=== PATIENT | female | born 1935 | race Caucasian/White ===

== ENCOUNTER 2017-12-26 06:14 | Day surgery (SDC) | payer OTHER ==
[2017-12-26] MEDS ORDERED: OXYMETAZOLINE HCL 0.05% 30ML NAS ONE ×2 (06:34→07:11)
[2017-12-26] MEDS ORDERED: Ringers Lactate 1,000 ML IV ONE (06:34)
--- NOTE | 2017-12-26 06:58 | EKG ---
Test Date: 2017-12-25 Test Time: 16:30:18 Associate Director Of Nursing: TALON MEASUREMENT RESULTS: Intervals: Rate: 57 ME: 190 QRSD: 84 QT: 430 QTc: 418 [place]: P: 57 ME: 190 QRS: 16 T: 46 INTERPRETIVE STATEMENTS: Sinus bradycardia Low voltage QRS Borderline ECG Compared to ECG 09/02/2017 11:52:01 Low QRS voltage now present Sinus rhythm no longer present Electronically Signed On 12-26-17 06:57:28 CDT by Steven Alberts
[2017-12-26] MEDS ORDERED: PROPOFOL 200 MG/20 ML VIAL IV ONE (07:07)
[2017-12-26] MEDS ORDERED: LIDOCAINE 2% MPF 5 ML VIAL ONE (07:07)
[2017-12-26] MEDS ORDERED: ROCURONIUM 50 MG/5 ML VIAL IV ONE (07:08)
[2017-12-26] MEDS ORDERED: FENTANYL CITR 100 MCG/2 ML ONE (07:08)
[2017-12-26] MEDS ORDERED: LIDOCAINE 1% W/EPI 1:100,000 MDV 50 ML VIAL ONE (07:11)
[2017-12-26] MEDS ORDERED: GLYCOPYRROLATE 0.2 MG/ML SYR ONE ×2 (07:22→07:35)
[2017-12-26] MEDS ORDERED: NEOSTIGMINE 1 MG/ML -5 ML SYRINGE ONE (07:35)
[2017-12-26] MEDS ORDERED: DEXAMETHASONE 10 MG/ML VIAL ONE (07:35)
[2017-12-26] MEDS ORDERED: NA CHLORIDE 0.9% 500 ML ONE (07:36)
[2017-12-26] MEDS ORDERED: EPHEDRINE SULF 50 MG/5 ML SYR ONE (07:37)
[2017-12-26] MEDS ORDERED: ONDANSETRON 4 MG/2 ML VIAL ONE (07:55)
--- NOTE | 2017-12-26 08:10 | P.BOP ---
Preoperative diagnosis: CRS, nasal obstruction, mary bullosa Postoperative diagnosis: same Primary procedure: B sphenoid balloon dilation Secondary procedure: B mary resection Estimated blood loss: 10ml Specimen: L nasal culture Findings: mild-moderate crusting, inflammed mucosa Anesthesia: General Complications: None Implants: Xerogel to B MM Fluids & blood products: crystalloid 550ml Transferred to: Recovery Room Condition: Good
[2017-12-26] MEDS ORDERED: TRAMADOL HCL 50 MG TAB ONE (09:31)
[2017-12-26 09:52] VITALS: TEMP 98.5
[2017-12-26 13:02] VITALS: BP 110/84; O2SAT 93
--- NOTE | 2017-12-26 19:40 | OP ---
Surgeon: Estelle Valladares MD Preoperative Diagnoses: Nasal obstruction, chronic sphenoid sinusitis, bilateral mary bullosa. Postoperative Diagnoses: Nasal obstruction, chronic sphenoid sinusitis, bilateral mary bullosa. Procedures Performed: Nasal endoscopy with resection of bilateral mary bullosa and nasal endoscopy with balloon dilation of bilateral sphenoid sinus. Description Of Procedure: The patient was brought to the operating room. She was placed under gener al anesthesia via oral endotracheal tube. The head of the bed was turned 90 degrees and the nasal ca vity was examined with a speculum. There was minimal nasal hairs and the Afrin-soaked pledgets were placed within the nasal cavity. These were removed and a 0-degree endoscope was used to perform a na brando endoscopy. There was [id number] crusting in the nasal cavity, particularly around the midd le turbinates. A portion of this crusting was collected and sent for culture. The remaining of the crusting was carefully suctioned. There were mild mucopurulent secretions within the nasal cavity. The photo documentation of the mary bullosa was obtained. The middle turbinate was then injected w ith 1% lidocaine with epinephrine. A total of 2.5 mL was used. A sickle knife was then used to inci se along the head of the right middle turbinate into the mary bullosa. Endoscopic scissors were us ed to cut the superior and inferior aspects opening up the conchal cavity. A 45 degree Meño-Cut was t hen used to cut along the posterior attachments and the lateral portion of the mary was removed. A microdebrider was used to refine the cut edges and remove displaced mucosa with significant improvem ent in the middle meatus opening. An Afrin-soaked pledget was placed into the middle meatus and atte ntion was turned to the left side where a similar procedure was performed. After removal of the left lateral aspect of the mary, the left middle meatus was significantly more opened. An Afrin-soaked pledget was packed into the middle meatus. The Entellus sinus balloon device was then prepared for use according to manufacture's instructions. Due to planned use in the sphenoid only, the fiberoptic light cable was removed and the tip was straightened in appropriate configuration for use in the sph enoid. Under 0 degree endoscopic guidance, the tip of the instrument was guided through the nasal ca vity to the sphenoethmoidal recess. Careful palpation along the sphenoid wall allowed entrance into the sphenoid os. The balloon was advanced over the guide catheter and the balloon was inflated for a pproximately 3 seconds. After deflation the balloon was retracted and the right sphenoid sinus was f orcefully irrigated with 20 cc of saline. The device was then withdrawn and the nasal cavity was suc tioned. A similar procedure was performed on the left side after dilation of the left sphenoid. Irr igation with 40 cc of saline was performed. There was moderate mucopurulent secretions which were ev acuated during the first irrigation and the second irrigation revealed clear saline with no further p urulence. The balloon device was withdrawn and the nasal cavity was suctioned. The pledgets were re moved and photo documentation was obtained of the sphenoid dilations as well as the mary resection. Due to mild oozing in the middle meatus, a Xerogel dissolvable nasal dressing was cut and placed un tanya endoscopic guidance into the middle meatus. This dressing was soaked thoroughly with saline and the procedure was concluded. The patient was returned to care of Anesthesia for awakening and extuba tion in the operating room, which proceeded without difficulty. Complications: None. Disposition: The patient will be discharged home later today in the care of her family with instruct ions for saline irrigations. The Gram stain results will be reviewed prior to initiating antimicrobi al therapy. DESHAUN Voice ID: [id number] Report ID: [id number]
== END 2017-12-26 10:10 | disposition home or self-care (01) ==
LOC: OR 06:14
PROVIDERS: ATTEND Otolaryngology
PROC: 09QX8ZZ Repair Left Sphenoid Sinus, Via Natural or Artificial Opening Endoscopic (ICD-10-PCS; 2017-12-26)
PROC: 09QW8ZZ Repair Right Sphenoid Sinus, Via Natural or Artificial Opening Endoscopic (ICD-10-PCS; 2017-12-26)
PROC: 09TL8ZZ Resection of Nasal Turbinate, Via Natural or Artificial Opening Endoscopic (ICD-10-PCS; principal; 2017-12-26 07:30)
DX: J32.3 Chronic sphenoidal sinusitis (principal); J34.89 Other specified disorders of nose and nasal sinuses; I10 Essential (primary) hypertension; J44.9 Chronic obstructive pulmonary disease, unspecified; K21.9 Gastro-esophageal reflux disease without esophagitis; M06.9 Rheumatoid arthritis, unspecified; M79.7 Fibromyalgia; Z88.3 Allergy status to other anti-infective agents; Z82.49 Family history of ischemic heart disease and other diseases of the circulatory system
CPT/HCPCS: 31240; 31297; 87070; 87077; 87186; 93005; J1100; J2405; J2710; J3010

== ENCOUNTER 2021-12-29 20:12 | Inpatient (IN) | payer OTHER ==
--- OUTSIDE RECORDS SUMMARY | 2021-12-29 20:16 | XMS REPORT | Clinical Summary ---
:1935 Author Organization [facility] MD [facility] Address [address] [place] [address] Care Team Providers Name Role Phone MD Vincent Unavailable Chris Batres MD Primary Care Provider Allergies Active Allergy Reactions Severity Noted Date Comments Sulfamethoxazole-Trime Hives, Shortness Of High 07/30/2020 thoprim Breath Metoprolol Succinate Other (See Comments) 07/30/2020 Brachycardia, hypotension Medications Medication Sig Dispensed Refills Start End Date Status Date cholecalciferol, Take 1,000 0 Ac tive vitamin D3, 25 mcg Units by (1,000 unit) tablet mouth every morning. clonazePAM Take 1 mg by 0 Active (KlonoPIN) 1 mg mouth twice 8 tablet daily. docusate sodium Take 250 mg 0 Ac tive (COLACE) 250 mg by mouth capsule twice daily. umeclidinium-vilante Inhale 1 puff 0 Active roL (Anoro Ellipta) by mouth 0 62.5-25 every mcg/actuation dsdv evening. lidocaine-prilocaine Apply to 30 g 0 Active (EMLA) 2.5-2.5% Port-A-Cath 1 creamIndications: area 30 to 45 Encounter for minutes prior adjustment and to port management of access as vascular access directed device (topical anesthetic). ammonium lactate APPLY LOTION 0 Active (LAC-HYDRIN) 12% TOPICALLY TO 1 lotion AFFECTED AREA TWICE DAILY montelukast TAKE 1 TABLET 0 Acti ve (SINGULAIR) 10 mg BY MOUTH ONCE 1 tablet DAILY rivaroxaban Take 1 tablet 30 tablet 2 Acti ve (Xarelto) 20 mg (20 mg) by 1 tabletIndications: mouth daily. Malignant neoplasm of unspecified ovary esomeprazole Take 1 30 capsule 11 Active (NexIUM) 40 MG capsule by 1 capsuleIndications: mouth once Malignant neoplasm daily of unspecified ovary, Gastroesophageal reflux disease methocarbamol Take 0.5 60 tablet 0 Active (ROBAXIN) 500 mg tablets (250 1 tabletIndications: mg) by mouth Chronic back pain, every 8 Chronic pain (eight) hours as needed for muscle spasms (pain). pregabalin (LYRICA) TAKE 1 90 capsule 2 Active 50 mg CAPSULE BY 2 capsuleIndications: MOUTH THREE Chronic pain TIMES DAILY diclofenac sodium Apply 2 g 100 g 2 Ac tive (Voltaren) 1 % topically to 2 gelIndications: affected Chronic pain area(s) 4 (four) times a day. ondansetron (Zofran) Take 1 tablet 30 tablet 3 03/25 Discontinued 8 mg by mouth 0 21 (Therapy tabletIndications: every 8 hours completed) Malignant neoplasm on days 2, 3, of unspecified and 4 ovary, Metastatic following cancer to the chemotherapy, peritoneum then may take 1 tablet by mouth every 8 hours as needed for nausea or vomiting. prochlorperazine Take 1 tablet 30 tablet 3 03/25/20 Discontinued (Compazine) 10 mg (10 mg) by 0 21 ( Therapy tabletIndications: mouth every 6 completed) Malignant neoplasm (six) hours of unspecified as needed for ovary, Metastatic nausea or cancer to the vomiting. peritoneum pregabalin (Lyrica) Take 1 60 capsule 1 03/25/20 Discontinued 25 mg capsule (25 1 21 (Therapy capsuleIndications: mg) by mouth completed) Chronic back pain twice daily. pregabalin (LYRICA) Take 1 60 capsule 2 02/11/20 Discontinued 50 mg capsule (50 1 21 (Reorder ) capsuleIndications: mg) by mouth Chronic pain twice daily. magnesium oxide Take 1 tablet 60 tablet 0 01/22/20 Discontinued (MAOX) 400 mg by mouth 1 21 (Reord er) tabletIndications: twice daily Hypomagnesemia esomeprazole Take 1 30 capsule 0 02/16/20 Discon tinued (NexIUM) 40 MG capsule (40 1 21 capsuleIndications: mg) by mouth Gastroesophageal daily. reflux disease rivaroxaban Take 1 tablet 30 tablet 0 03/22/20 Disc ontinued (Xarelto) 20 mg (20 mg) by 1 21 (Re order) tabletIndications: mouth daily. Malignant neoplasm of unspecified ovary magnesium oxide Take 1 tablet 60 tablet 3 02/08/20 Discontinued (MAOX) 400 mg by mouth 1 21 (Reord er) tabletIndications: twice daily Hypomagnesemia magnesium oxide Take 1 tablet 60 tablet 3 04/22/20 Discontinued (MAOX) 400 mg by mouth 1 21 (Thera py tabletIndications: twice daily completed) Hypomagnesemia pregabalin (LYRICA) Take 1 60 capsule 2 04/28/20 Discontinued 50 mg capsule (50 1 21 (Reorder ) capsuleIndications: mg) by mouth Chronic pain twice daily. esomeprazole Take 1 30 capsule 0 03/20/20 Discon tinued (NexIUM) 40 MG capsule by 1 21 (Reo rder) capsuleIndications: mouth once Gastroesophageal daily reflux disease esomeprazole Take 1 30 capsule 0 04/22/20 Discon tinued (NexIUM) 40 MG capsule by 1 21 (Reo rder) capsuleIndications: mouth once Gastroesophageal daily reflux disease pregabalin (LYRICA) Take 1 90 capsule 2 05/17/20 Discontinued 50 mg capsule (50 1 21 capsuleIndications: mg) by mouth Chronic pain 3 (three) times a day. pregabalin (LYRICA) Take 1 60 capsule 0 07/29/20 Discontinued 50 mg capsule by 1 21 (Reorder) capsuleIndications: mouth twice Chronic pain daily ibuprofen Take 400 mg 0 07/29/20 Disconti nued (ADVIL,MOTRIN) 200 by mouth 21 ( Therapy mg tablet twice daily. complet ed) HYDROcodone-acetamin Take 0.5 30 tablet 0 10/28/19 Discontinued ophen (NORCO) 5 tablets by 1 22 (Th erapy mg-325 mg per mouth every 8 co mpleted) tabletIndications: (eight) hours Chronic back pain as needed for severe pain. pregabalin (LYRICA) Take 1 90 capsule 2 10/12/19 Discontinued 50 mg capsule (50 1 22 capsuleIndications: mg) by mouth Chronic pain 3 (three) times a day. ondansetron (ZOFRAN) Take 1 tablet 30 tablet 2 09/15 Discontinued 8 mg (8 mg) by 2 22 (Therapy tabletIndications: mouth every 8 completed) Malignant neoplasm (eight) hours of unspecified as needed for ovary, Metastatic nausea or cancer to the vomiting. peritoneum ciprofloxacin HCl Take 1 tablet 10 tablet 0 11/05/19 Discontinued (Cipro) 250 mg (250 mg) by 2 22 ( erapy tabletIndications: mouth twice completed) Dysuria daily. pregabalin (LYRICA) TAKE 1 90 capsule 0 10/28/19 Discontinued 50 mg CAPSULE BY 2 22 (Reorder) capsuleIndications: MOUTH THREE Chronic pain TIMES DAILY Active Problems Patient Care Coordination Note Formatting of this note might be differe nt from the original. Please allow Susanne Haynes (daughter) to accompany pt permanently for visits as pt gets mild confusion and has difficulty providing adequate history. Please schedule port access with labs pe r patient request. 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 07/30/2020 Colostomy status 07/30/2020 Frailty 07/30/2020 Chronic pain 07/30/2020 Opioid abuse continuous use 07/30/2020 H/O: pulmonary embolus 07/30/2020 [facility] current use of anticoagulant 07/30/2020 Gastroesophageal reflux disease 07/30/2020 Herpes zoster 07/30/2020 Deep venous thrombosis 07/30/2020 Cancer associated pain 07/30/2020 Coronary atherosclerosis of [place] coronary artery 05/2020 Essential hypertension 07/29/2020 Mixed hyperlipidemia 07/29/2020 Obstructive sleep apnea syndrome 07/29/2020 Rheumatoid arthritis 07/29/2020 Fibromyalgia 12/23/2018 Parastomal hernia without obstruction or gangrene 11/2018 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 Cancer Staging: Clinical stage from 04/03: Stage IIIC (Primary) - Signed by Almita Batres MD on 07/31/2020 Clinical stage from 03/19/2019: Stage III C (Recurrent) - Signed by Almita Batres MD on 07/31/2020 Atrial fibrillation 02/28/2018 Chronic obstructive pulmonary disease 02/28/2018 Diverticulitis of colon 02/28/2018 Encounters Date Type Specialty Care Team Description 11/22/2021 Orders Only Gynecology Keny, Neoplasm, malig nant 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> (Primary Dx); ASIM Romero Metastatic canc er to the peritoneum 11/22/2021 Orders Only Gynecology Adriane Paul, Malignant neopl asm of unspecified ovary (Primary Dx); PA Metastatic canc er to the peritoneum; Encounter for e xamination prior to antineoplastic chemotherapy; Neoplasm, malig nant 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> 11/04/2021 Infusion Infusion Services Keny, 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 (Primary Dx); ASIM Romero Neoplasm, malig nant 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> 11/04/2021 Office Visit Gynecology Gisel Neoplasm, malig nant 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> (Primary Dx); Almita Perez MD Malignant neoplasm of unspecified ovary; Keny, Metastatic canc er to the peritoneum; ASIM Romero Encounter for e xamination prior to antineoplastic chemotherapy 11/04/2021 Clinical Support Infusion Services Gisel, Malign ant neoplasm of Almita Perez MD unspecified ov danielle 11/04/2021 Travel 11/03/2021 Orders Only Gynecology Francisco Batres, malig nant 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> (Primary Dx); Almita Perez MD Metastatic can cer to the peritoneum 10/27/2021 Office Visit Pain Medicine Jacek Kimball Chronic pain (Primary Dx); MD Aisha Chronic back pa in 10/27/2021 Travel 10/14/2021 Infusion Infusion Services Keny, 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 (Primary Dx); ASIM Romero Neoplasm, malig nant 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> 10/14/2021 Office Visit Gynecology Gisel, Neoplasm, malig nant 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> (Primary Dx); Almita Perez MD Malignant neoplasm of unspecified ovary; Keny, Metastatic canc er to the peritoneum; ASIM Romero Encounter for e xamination prior to antineoplastic chemotherapy 10/14/2021 Clinical Support Infusion Services Almita Batres MD 10/14/2021 Orders Only Gynecology Francisco Batres, malleonie painter of Almita Perez MD ovary <Bilater al> (Primary Dx) 10/14/2021 Travel 10/11/2021 Telemedicine Hematology Kelsey Meyer Long-term use of anticoagulants (Primary Dx); MD Garrett H/O: atrial fibrillation; Holt 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> Michael Rao MD 10/11/2021 Refill Pain Medicine Jacek Kimball Chronic pain MD Aisha 10/09/2021 Hospital Encounter Vascular Access China Batres for and Procedures Almita Perez MD adjustment and Coyle, management of v ascestelle Painter I automated access systems technician device ( Primary Dx) 10/09/2021 Travel 10/06/2021 Orders Only Gynecology Francisco Batres, malig nant 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> (Primary Dx); Almita Perez MD Metastatic can cer to the peritoneum 10/06/2021 Orders Only Gynecology Keny, Neoplasm, malig nant of ASIM Romero ovary <Bilatera l> (Primary Dx) 10/05/2021 Orders Only Gynecology Keny, Neoplasm, malig nant of Nick, PA ovary <Bilatera l> (Primary Dx) 10/05/2021 Orders Only Gynecology Keny, Thrombosis of i nternal ASIM Romero jugular vein <R ight side> (Primary Dx) 10/04/2021 Hospital Encounter Radiology Keny, Malignant neoplasm of unspecified ovary; ASIM Romero Metastatic canc er to the peritoneum; Encounter for e xamination prior to antineoplastic chemotherapy; Neoplasm, malig nant 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> 10/04/2021 Hospital Encounter Lab Keny, Yonasati c cancer to the peritoneum; ASIM Romero Neoplasm, malig nant 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> 10/04/2021 Travel 09/14/2021 Infusion Infusion Services Keny, 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 (Primary Dx); ASIM Romero Neoplasm, malig nant 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> 09/14/2021 Office Visit Gynecology Gisel Neoplasm, malig nant 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> (Primary Dx); Almita Perez MD Malignant neop lasm of unspecified ovary; Metastatic canc er to the peritoneum; Encounter for e xamination prior to antineoplastic chemotherapy; Dysuria 09/14/2021 Clinical Support Infusion Services Almita Batres MD 09/14/2021 Travel 09/13/2021 Orders Only Gynecology Francisco Batres malig nant of Nicole D., MD ovary <Bilater al> (Primary Dx) 08/29/2021 Orders Only Gynecology Adriane Paul, Malignant neopl asm of unspecified ovary (Primary Dx); ASIM Metastatic canc er to the peritoneum 08/29/2021 Telephone Gynecology [facility], November Medication Ref ill L, RN 08/24/2021 Infusion Infusion Services 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 (Primary Dx); Neoplasm, malig nant 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> 08/24/2021 Office Visit Gynecology Francisco Batres, malig nant 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> (Primary Dx); Almita Perez MD Malignant neop lasm of unspecified ovary; Metastatic canc er to the peritoneum; Encounter for e xamination prior to antineoplastic chemotherapy 08/24/2021 Clinical Support Infusion Services Almita Batres MD 08/24/2021 Travel 08/23/2021 Orders Only Gynecology Francisco Batres malig nant of Nicole D., MD ovary <Bilater al> (Primary Dx) 08/15/2021 Ancillary Procedure Radiology Gisel Malignan t neoplasm of unspecified ovary; Almita Perez MD Mass of muscle of left upper limb 08/15/2021 Travel 08/03/2021 Hospital Encounter Pain Medicine Jacek Kimball MD 08/03/2021 Hospital Encounter Pain Medicine Jacek Kimball c back pain MD Aisha 08/03/2021 Travel 08/03/2021 Orders Only Pain Medicine Jozef Mendez MD 07/29/2021 Infusion Infusion Services Malignant neoplasm of unspecified ovary (Primary Dx); Metastatic canc er to the peritoneum 07/29/2021 Office Visit Pain Medicine Jacek Kimball Chronic back pain (Primary Dx); MD Aisha Chronic pain 07/29/2021 Office Visit Gynecology Gisel, Malignant neopl asm of unspecified ovary (Primary Dx); Almita Perez MD Encounter for examination prior to antineoplastic chemotherapy; Metastatic canc er to the peritoneum; Abnormal urinal ysis; Mass of muscle of left upper limb; Neoplasm, malig nant 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> 07/29/2021 Clinical Support Infusion Services Almita Batres MD 07/29/2021 Orders Only Gynecology Keny, Malignant neopl asm of Nick, PA unspecified ova ry (Primary Dx) 07/29/2021 Travel 07/28/2021 Orders Only Gynecology Gisel, Malignant neopl asm of Almita Perez MD unspecified ov danielle (Primary Dx) 07/27/2021 Ancillary Procedure Radiology Keny, Malignan t neoplasm of unspecified ovary; Nick PA Metastatic canc er to the peritoneum 07/27/2021 Travel 07/08/2021 Clinical Support Infusion Services Almita Batres MD 07/08/2021 Infusion Infusion Services Gisel Malignant neoplasm of unspecified ovary (Primary Dx); Almita Perez MD Metastatic can cer to the peritoneum 07/08/2021 Office Visit Gynecology Gisel Malignant neopl asm of unspecified ovary (Primary Dx); Almita Perez MD Metastatic can cer to the peritoneum 07/08/2021 Travel 07/07/2021 Orders Only Gynecology Gisel Malignant neopl asm of unspecified ovary (Primary Dx); Almita Perez MD Metastatic can cer to the peritoneum 07/01/2021 Refill Gynecology Keny Malignant neopl asm of Nick, PA unspecified ova ry 06/17/2021 Infusion Infusion Services Malignant neoplasm of unspecified ovary (Primary Dx); Metastatic canc er to the peritoneum 06/17/2021 Office Visit Gynecology Keny Malignant neopl asm of unspecified ovary (Primary Dx); Nick, PA Metastatic canc er to the peritoneum; Dysuria 06/17/2021 Clinical Support Infusion Services 06/17/2021 Orders Only Gynecology Gisel, Malignant neopl asm of Almita Perez MD unspecified ov danielle (Primary Dx) 06/17/2021 Travel 05/17/2021 Refill Pain Medicine Jacek Kimball Chronic pain MD Aisha 05/13/2021 Office Visit Gynecology Gisel, Malignant neopl asm of unspecified ovary (Primary Dx); Almita Perez MD Metastatic can cer to the peritoneum; Encounter for e xamination prior to antineoplastic chemotherapy; Leukocytes in u rine; Dental caries, not otherwise specified 05/13/2021 Clinical Support Infusion Services Nick Bustillo PA 05/13/2021 Orders Only Gynecology Keny Malignant neopl asm of unspecified ovary (Primary Dx); ASIM Romero Metastatic canc er to the peritoneum 05/13/2021 Travel 05/12/2021 Orders Only Gynecology Gisel, Malignant neopl asm of unspecified ovary (Primary Dx); Almita Perez MD Metastatic can cer to the peritoneum; Neoplasm, malig nant 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> 05/07/2021 Ancillary Procedure Radiology Jacek Kimball Chroni c back pain; MD Aisha Chronic pain; Radiculopathy o f lumbar region 05/07/2021 Travel 04/28/2021 Office Visit Pain Medicine Jacek Kimball Radiculopath y of lumbar region (Primary Dx); MD Aisha Chronic back pa in; Chronic pain 04/28/2021 Travel 04/22/2021 Infusion Infusion Services Keny Malignant neoplasm of unspecified ovary (Primary Dx); ASIM Romero Metastatic canc er to the peritoneum 04/22/2021 Office Visit Gynecology Gisel, Malignant neopl asm of unspecified ovary (Primary Dx); Almita Perez MD Metastatic can cer to the peritoneum; Encounter for e xamination prior to antineoplastic chemotherapy; Gastroesophagea l reflux disease 04/22/2021 Clinical Support Infusion Services Almita Batres MD 04/22/2021 Travel 04/20/2021 Ancillary Procedure Radiology Katelin Bustillo t neoplasm of unspecified ovary; ASIM Romero Metastatic canc er to the peritoneum 04/20/2021 Travel 03/25/2021 Infusion Infusion Services Keny Malignant neoplasm of unspecified ovary (Primary Dx); ASIM Romero Metastatic canc er to the peritoneum 03/25/2021 Office Visit Gynecology Keny, Malignant neopl asm of unspecified ovary (Primary Dx); ASIM Romero Metastatic canc er to the peritoneum 03/25/2021 Orders Only Gynecology Cole Mcknight MD 03/25/2021 Travel 03/22/2021 Orders Only Gynecology Keny, Malignant neopl asm of ASIM Romero unspecified ova ry 03/21/2021 Orders Only Gynecology Gisel, Malignant neopl asm of Almita Perez MD unspecified ov danielle (Primary Dx) 03/20/2021 Orders Only Gynecology Adriane Paul, Gastroesophagea l reflux PA disease 03/17/2021 Orders Only Gynecology Adriane Paul PA 03/04/2021 Infusion Infusion Services Adriane Paul, Malignant neoplasm of unspecified ovary (Primary Dx); PA Metastatic canc er to the peritoneum 03/04/2021 Office Visit Gynecology Gisel, Malignant neopl asm of unspecified ovary (Primary Dx); Almita Perez MD Metastatic can cer to the peritoneum 03/04/2021 Clinical Support Infusion Services Bryan, Malign ant neoplasm of Saneese K, PA unspecified ov danielle 03/04/2021 Travel 02/25/2021 Infusion Infusion Services Adriane Paul, Malignant neoplasm of unspecified ovary; PA Metastatic canc er to the peritoneum 02/25/2021 Clinical Support Infusion Services Bryan, Malign ant neoplasm of Saneese K, PA unspecified ov danielle 02/25/2021 Orders Only Gynecology Keny, Malignant neopl asm of unspecified ovary (Primary Dx); ASIM Romero Metastatic canc er to the peritoneum 02/25/2021 Orders Only Gynecology Keny, Dysuria (Primar y Dx) ASIM Romero 02/25/2021 Travel 02/18/2021 Office Visit Gynecology Keny, Malignant neopl asm of unspecified ovary (Primary Dx); ASIM Romero Metastatic canc er to the peritoneum; Thrombocytopeni a, not otherwise specified 02/18/2021 Clinical Support Infusion Services Almita Batres MD 02/18/2021 Travel 02/15/2021 Refill Gynecology Bryan, Gastroesophagea l reflux Saneese K, PA disease 02/10/2021 Refill Pain Medicine Harrison, Chronic pain Abdullahi D, RN 02/07/2021 Refill Gynecology november Hypomagneseian L, RN 02/02/2021 Documentation Pain Medicine Dmitry Carcamo MD 01/28/2021 Hospital Encounter Pain Medicine Jacek Kimball MD 01/28/2021 Hospital Encounter Pain Medicine Jacek Kimball MD 01/28/2021 Hospital Encounter Pain Medicine Delmi Sanchez MD 01/28/2021 Hospital Encounter Pain Medicine Jacek Kimball Chronemmanuel c back pain (Primary Dx); MD Aisha Lumbar facet emmett int pain; Pain in right s houlder; Rotator cuff ar thropathy of right shoulder 01/28/2021 Travel 01/27/2021 Orders Only Pain Medicine Dmitry Carcamo MD 01/27/2021 Telephone Pain Medicine Meche Crystal RN 01/25/2021 Telephone Pain Medicine Meche Crystal RN 01/24/2021 Office Visit Pain Medicine Jacek Kimball Chronic back pain MD Aisha (Primary Dx) 01/24/2021 Travel 01/21/2021 Infusion Infusion Services Gisel, Malignant neoplasm of unspecified ovary (Primary Dx); Almita Perez MD Metastatic can cer to the peritoneum 01/21/2021 Office Visit Gynecology Batres, Malignant neopl asm of unspecified ovary (Primary Dx); Almita Perez MD Metastatic can cer to the peritoneum; Encounter for e xamination prior to antineoplastic chemotherapy; Hypomagnesemia; Thrombocytopeni a, not otherwise specified; 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 01/21/2021 Travel 01/19/2021 Hospital Encounter Lab Gisel, Malignant neoplasm of unspecified ovary; Almita Perez MD Metastatic can cer to the peritoneum 01/19/2021 Ancillary Procedure Radiology Bryan, Malignan t neoplasm of Miguel Vieyra PA unspecified ov danielle 01/19/2021 Travel 01/03/2021 Refill Surgical Oncology Boaz Soto PA after 12/29/2020 Immunizations Name Administration Dates Next Due Pfizer SARS-CoV-2 Vaccination 04/18/2021 Surgical History Surgery Date Site/Laterality Comments COLON SURGERY 02/17/2018 - colostomy 03/19/2018 BACK SURGERY 08/20/2014 - 08/19/2015 HYSTERECTOMY 08/20/1979 - 08/19/1980 CATARACT EXTRACTION, BILATERAL CA INSJ TUNNELED CTR VAD 09/30/2020 Neck/Right Procedu re: PORT-A-CATH W/SUBQ PORT AGE 5 YR/> PLACEMENT ; Surgeon: Conner Hogan MD; L ocation: [facility]; Servic e: SURG ONC - PORT Medical devices from this surgery are in t he Implants section . CA CHG US GUIDE, VASCULAR 09/30/2020 Neck/Right Proced ure: US GUIDANCE ACCESS WITH EVAL OF POT ENTIAL ACCESS SITES, RE ALTIME US VISUALIZATION OF VASC NEEDLE ENTRY; S urgeon: Conner Hogan MD; Location: [facility]; Service: SURG ON C - PORT Medical devices from this surgery are in t he Implants section . CA CHG FLUOROGUIDE CNTRL 09/30/2020 Neck/Right Procedu re: FLUORO GUIDANCE VIDA FOR CENTRAL VENO US ACCESS ACCESS,PLACE,REPLACE,REMOV DEVIC E PLACEMENT, E REPLACEMENT, OR REMOVAL; Surgeon: Conner Hogan MD; Location: [facility]; Service: SURG ON C - PORT Medical devices from this surgery are in t he Implants section . Medical History Medical History Date Comments Hypertension no medication for ap proximately 1 year. 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 airway pressure ventilation Gastric reflux 1995 esomeprazole Gastric ulcer 1995 Osteoporosis 2012 Arthritis 1970 Anxiety 2012 clonazepam Herpes zoster 04/2020 Ovarian cancer 02/2018 Family History Medical History Relation Name Comments Breast cancer Mother Damaris Arias Relation Name Status Comments Mother Damaris Arias Social History Tobacco Use Types Packs/Day Years Used Date Never Smoker 0 0 Smokeless Tobacco: Never Used Alcohol Use Standard Drinks/Week Comments Not Currently 0 (1 standard drink = 0.6 oz pure alcoho l) Sex Assigned at Date Recorded Female 07/28/2020 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 Start Date Occupation Industry Not on file Not on file Not on file Obstetrics History Para Term AB IAB SAB Ectopic Multiple Living Live Births 2 2 2 Date Outcome GA Total Labor/2nd/3rd Weight Sex Delivery Anes PTL [place] A 1 A5 Name Clin Labor Para Para Last Filed Vital Signs Vital Sign Reading Time Taken Comments Blood Pressure 123/75 11/04/2021 10:37 AM CDT Pulse 71 11/04/2021 10:37 AM CDT Temperature 36.4 C (97.6 F) 11/04/2021 10:37 AM CDT Respiratory Rate 18 11/04/2021 10:37 AM CDT Oxygen Saturation 97% 10/09/2021 11:29 AM 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 Inhaled Oxygen Concentration - - Weight 53.3 kg (117 lb 8.1 oz) 11/04/2021 8:29 AM CDT Height - - Body Mass Index 23.07 08/06/2020 9:06 AM 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 Plan of Treatment Date Type Specialty Care Team Description 01/17/2022 Appointment Radiology Adriane Paul PA [facility] [place], [place] [address] (Wo rk) 01/18/2022 Lab Lab Nick Bustillo PA [address] [place] [address] [phone] (Wo rk) 01/18/2022 Clinical Support Infusion Services Alfredito Batres MD [address] [place] [address] [phone] (Wo rk) 01/18/2022 Office Visit Gynecology Almita Batres MD [address] [place] [address] [phone] (Wo rk) 01/18/2022 Infusion Infusion Services Nick Bustillo PA [address] [place] [phone] (Wo rk) 01/27/2022 Office Visit Pain Medicine Jacek Kimball MD [address] [place] [phone] (Wo rk) Health Maintenance Due Date Last Done Comments COVID-19 Vaccination (2 - Pfizer risk 4-dose series) 05/09/2021 04/18/2021 Implants Implanted Type Area Machine Grainer Device Identifier Shelf Model / Expiration Serial / Date Lot [employer]wr[employer] Gely Slim 6fr W/Smth Septum - Sna Port Right: BARD PERIPHERAL [id number] 10/17/2021 [id number] / Implanted: Qty: 1 on 09/30/2020 by Conner Hogan MD at [facility] [facility] Internal VASCULAR NA / Jugular [id number] Description: Catheter length-21 CM Procedures Procedure Name Priority Date/Time Associated Diagnosis Comme nts URINALYSIS MICROSCOPIC Routine 11/04/2021 8:45 R esults for this AM CDT procedure are i n the results section. 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 .GLOMERULAR FILTRATION Routine 11/04/2021 8:45 Metastatic can cer to Results for this RATE AM CDT the peritoneum procedure are in Neoplasm, malignant the resu lts 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> section . SERUM CREATININE Routine 11/04/2021 8:45 Metastatic cancer to Results for this AM CDT the peritoneum procedure are in Neoplasm, malignant the resu lts 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> section . ELECTROLYTE PANEL Routine 11/04/2021 8:45 Metastatic cancer t o Results for this AM CDT the peritoneum procedure are in Neoplasm, malignant the resu lts 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> section . BLOOD UREA NITROGEN Routine 11/04/2021 8:45 Metastatic cancer to Results for this AM CDT the peritoneum procedure are in Neoplasm, malignant the resu lts 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> section . GLUCOSE LEVEL Routine 11/04/2021 8:45 Metastatic cancer to Re sults for this AM CDT the peritoneum procedure are in Neoplasm, malignant the resu lts 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> section . MANUAL DIFFERENTIAL Routine 11/04/2021 8:45 Metastatic cancer to Results for this AM CDT the peritoneum procedure are in Neoplasm, malignant the resu lts 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> section . Results CBC Routine 11/04/2021 8:45 Metastatic cancer to Res ults for this AM CDT the peritoneum procedure are in Neoplasm, malignant the resu lts 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> section . URINALYSIS WITH Routine 11/04/2021 8:45 Metastatic cancer to Results for this MICROSCOPIC IF AM CDT the peritoneum procedure are in INDICATED Neoplasm, malignant the resu lts 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> section . MAGNESIUM LEVEL Routine 11/04/2021 8:45 Metastatic cancer to Results for this AM CDT the peritoneum procedure are in Neoplasm, malignant the resu lts 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> section . ASPARTATE Routine 11/04/2021 8:45 Metastatic cancer to Res ults for this AMINOTRANSFERASE AM CDT the peritoneum procedure are in Neoplasm, malignant the resu lts 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> section . ALANINE Routine 11/04/2021 8:45 Metastatic cancer to Res ults for this AMINOTRANSFERASE AM CDT the peritoneum procedure are in Neoplasm, malignant the resu lts 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> section . BILIRUBIN TOTAL Routine 11/04/2021 8:45 Metastatic cancer to Results for this AM CDT the peritoneum procedure are in Neoplasm, malignant the resu lts 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> section . BASIC METABOLIC PANEL, Routine 11/04/2021 8:45 Metastatic can cer to CALCIUM TOTAL AM CDT the peritoneum 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> COMPLETE BLOOD COUNT W/ Routine 11/04/2021 8:45 Metastatic ca ncer to DIFFERENTIAL AM CDT the peritoneum 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> CANCER ANTIGEN 125 Routine 11/04/2021 8:45 Metastatic cancer to Results for this AM CDT the peritoneum procedure are in Neoplasm, malignant the resu lts 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> section . CALCIUM LEVEL TOTAL Routine 10/14/2021 1:43 Metastatic cancer to Results for this PM 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 the peritoneum procedure are in Neoplasm, malignant the resu lts 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> section . .GLOMERULAR FILTRATION Routine 10/14/2021 1:43 Metastatic can cer to Results for this RATE PM 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 the peritoneum procedure are in Neoplasm, malignant the resu lts 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> section . SERUM CREATININE Routine 10/14/2021 1:43 Metastatic cancer to Results for this PM 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 the peritoneum procedure are in Neoplasm, malignant the resu lts 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> section . ELECTROLYTE PANEL Routine 10/14/2021 1:43 Metastatic cancer t o Results for this PM 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 the peritoneum procedure are in Neoplasm, malignant the resu lts 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> section . BLOOD UREA NITROGEN Routine 10/14/2021 1:43 Metastatic cancer to Results for this PM 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 the peritoneum procedure are in Neoplasm, malignant the resu lts 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> section . GLUCOSE LEVEL Routine 10/14/2021 1:43 Metastatic cancer to Re sults for this PM 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 the peritoneum procedure are in Neoplasm, malignant the resu lts 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> section . MANUAL DIFFERENTIAL Routine 10/14/2021 1:43 Metastatic cancer to Results for this PM 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 the peritoneum procedure are in Neoplasm, malignant the resu lts 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> section . Results CBC Routine 10/14/2021 1:43 Metastatic cancer to Res ults for this PM 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 the peritoneum procedure are in Neoplasm, malignant the resu lts 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> section . MAGNESIUM LEVEL Routine 10/14/2021 1:43 Metastatic cancer to Results for this PM 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 the peritoneum procedure are in Neoplasm, malignant the resu lts 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> section . ASPARTATE Routine 10/14/2021 1:43 Metastatic cancer to Res ults for this AMINOTRANSFERASE PM 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 the peritoneum procedure are in Neoplasm, malignant the resu lts 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> section . ALANINE Routine 10/14/2021 1:43 Metastatic cancer to Res ults for this AMINOTRANSFERASE PM 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 the peritoneum procedure are in Neoplasm, malignant the resu lts 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> section . BILIRUBIN TOTAL Routine 10/14/2021 1:43 Metastatic cancer to Results for this PM 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 the peritoneum procedure are in Neoplasm, malignant the resu lts 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> section . 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 CT CHEST ABDOMEN PELVIS Routine 10/04/2021 1:16 Malignant thierno plasm of Results for this W CONTRAST PM 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 unspecified ovar y procedure are in Metastatic cancer to the res ults the peritoneum section. 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 .GLOMERULAR FILTRATION Routine 10/04/2021 10:01 Metastatic can cer to Results for this RATE AM 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 the peritoneum procedure are in Neoplasm, malignant the resu lts 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> section . SERUM CREATININE Routine 10/04/2021 10:01 Metastatic cancer to Results for this AM 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 the peritoneum procedure are in Neoplasm, malignant the resu lts 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> section . ELECTROLYTE PANEL Routine 10/04/2021 10:01 Metastatic cancer t o Results for this AM 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 the peritoneum procedure are in Neoplasm, malignant the resu lts 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> section . BLOOD UREA NITROGEN Routine 10/04/2021 10:01 Metastatic cancer to Results for this AM 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 the peritoneum procedure are in Neoplasm, malignant the resu lts 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> section . GLUCOSE LEVEL Routine 10/04/2021 10:01 Metastatic cancer to Re sults for this AM 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 the peritoneum procedure are in Neoplasm, malignant the resu lts 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> section . MANUAL DIFFERENTIAL Routine 10/04/2021 10:01 Metastatic cancer to Results for this AM 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 the peritoneum procedure are in Neoplasm, malignant the resu lts 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> section . Results CBC Routine 10/04/2021 10:01 Metastatic cancer to Res ults for this AM 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 the peritoneum procedure are in Neoplasm, malignant the resu lts 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> section . MAGNESIUM LEVEL Routine 10/04/2021 10:01 Metastatic cancer to Results for this AM 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 the peritoneum procedure are in Neoplasm, malignant the resu lts 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> section . ASPARTATE Routine 10/04/2021 10:01 Metastatic cancer to Res ults for this AMINOTRANSFERASE AM 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 the peritoneum procedure are in Neoplasm, malignant the resu lts 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> section . ALANINE Routine 10/04/2021 10:01 Metastatic cancer to Res ults for this AMINOTRANSFERASE AM 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 the peritoneum procedure are in Neoplasm, malignant the resu lts 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> section . BILIRUBIN TOTAL Routine 10/04/2021 10:01 Metastatic cancer to Results for this AM 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 the peritoneum procedure are in Neoplasm, malignant the resu lts 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> section . BASIC METABOLIC PANEL, Routine 10/04/2021 10:01 Metastatic can cer to CALCIUM TOTAL AM 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 the peritoneum 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> COMPLETE BLOOD COUNT W/ Routine 10/04/2021 10:01 Metastatic ca ncer to DIFFERENTIAL AM 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 the peritoneum 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> CANCER ANTIGEN 125 Routine 10/04/2021 10:01 Metastatic cancer to Results for this AM 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 the peritoneum procedure are in Neoplasm, malignant the resu lts 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> section . URINALYSIS MICROSCOPIC Routine 09/14/2021 1:53 R esults for this PM 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 procedure are i n the results section. URINALYSIS WITH Routine 09/14/2021 1:53 Metastatic cancer to Results for this MICROSCOPIC IF PM 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 the peritoneum procedure are in INDICATED Neoplasm, malignant the resu lts 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> section . CALCIUM LEVEL TOTAL Routine 09/14/2021 1:50 Metastatic cancer to Results for this PM 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 the peritoneum procedure are in Neoplasm, malignant the resu lts 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> section . .GLOMERULAR FILTRATION Routine 09/14/2021 1:50 Metastatic can cer to Results for this RATE PM 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 the peritoneum procedure are in Neoplasm, malignant the resu lts 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> section . SERUM CREATININE Routine 09/14/2021 1:50 Metastatic cancer to Results for this PM 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 the peritoneum procedure are in Neoplasm, malignant the resu lts 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> section . ELECTROLYTE PANEL Routine 09/14/2021 1:50 Metastatic cancer t o Results for this PM 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 the peritoneum procedure are in Neoplasm, malignant the resu lts 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> section . BLOOD UREA NITROGEN Routine 09/14/2021 1:50 Metastatic cancer to Results for this PM 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 the peritoneum procedure are in Neoplasm, malignant the resu lts 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> section . GLUCOSE LEVEL Routine 09/14/2021 1:50 Metastatic cancer to Re sults for this PM 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 the peritoneum procedure are in Neoplasm, malignant the resu lts 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> section . MANUAL DIFFERENTIAL Routine 09/14/2021 1:50 Metastatic cancer to Results for this PM 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 the peritoneum procedure are in Neoplasm, malignant the resu lts 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> section . Results CBC Routine 09/14/2021 1:50 Metastatic cancer to Res ults for this PM 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 the peritoneum procedure are in Neoplasm, malignant the resu lts 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> section . MAGNESIUM LEVEL Routine 09/14/2021 1:50 Metastatic cancer to Results for this PM 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 the peritoneum procedure are in Neoplasm, malignant the resu lts 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> section . ASPARTATE Routine 09/14/2021 1:50 Metastatic cancer to Res ults for this AMINOTRANSFERASE PM 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 the peritoneum procedure are in Neoplasm, malignant the resu lts 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> section . ALANINE Routine 09/14/2021 1:50 Metastatic cancer to Res ults for this AMINOTRANSFERASE PM 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 the peritoneum procedure are in Neoplasm, malignant the resu lts 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> section . BILIRUBIN TOTAL Routine 09/14/2021 1:50 Metastatic cancer to Results for this PM 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 the peritoneum procedure are in Neoplasm, malignant the resu lts 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> section . BASIC METABOLIC PANEL, Routine 09/14/2021 1:50 Metastatic can cer to CALCIUM TOTAL PM 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 the peritoneum 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> COMPLETE BLOOD COUNT W/ Routine 09/14/2021 1:50 Metastatic ca ncer to DIFFERENTIAL PM 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 the peritoneum 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> CANCER ANTIGEN 125 Routine 09/14/2021 1:50 Metastatic cancer to Results for this PM 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 the peritoneum procedure are in Neoplasm, malignant the resu lts 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> section . URINE CULTURE Routine 09/14/2021 1:53 Dysuria Results fo r this AM 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 procedure are i n the results section. CALCIUM LEVEL TOTAL Routine 08/24/2021 9:43 Metastatic cancer to Results for this AM 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 the peritoneum procedure are in Neoplasm, malignant the resu lts 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> section . .GLOMERULAR FILTRATION Routine 08/24/2021 9:43 Metastatic can cer to Results for this RATE AM 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 the peritoneum procedure are in Neoplasm, malignant the resu lts 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> section . SERUM CREATININE Routine 08/24/2021 9:43 Metastatic cancer to Results for this AM 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 the peritoneum procedure are in Neoplasm, malignant the resu lts 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> section . ELECTROLYTE PANEL Routine 08/24/2021 9:43 Metastatic cancer t o Results for this AM 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 the peritoneum procedure are in Neoplasm, malignant the resu lts 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> section . BLOOD UREA NITROGEN Routine 08/24/2021 9:43 Metastatic cancer to Results for this AM 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 the peritoneum procedure are in Neoplasm, malignant the resu lts 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> section . GLUCOSE LEVEL Routine 08/24/2021 9:43 Metastatic cancer to Re sults for this AM 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 the peritoneum procedure are in Neoplasm, malignant the resu lts 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> section . MANUAL DIFFERENTIAL Routine 08/24/2021 9:43 Metastatic cancer to Results for this AM 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 the peritoneum procedure are in Neoplasm, malignant the resu lts 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> section . Results CBC Routine 08/24/2021 9:43 Metastatic cancer to Res ults for this AM 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 the peritoneum procedure are in Neoplasm, malignant the resu lts 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> section . MAGNESIUM LEVEL Routine 08/24/2021 9:43 Metastatic cancer to Results for this AM 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 the peritoneum procedure are in Neoplasm, malignant the resu lts 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> section . ASPARTATE Routine 08/24/2021 9:43 Metastatic cancer to Res ults for this AMINOTRANSFERASE AM 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 the peritoneum procedure are in Neoplasm, malignant the resu lts 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> section . ALANINE Routine 08/24/2021 9:43 Metastatic cancer to Res ults for this AMINOTRANSFERASE AM 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 the peritoneum procedure are in Neoplasm, malignant the resu lts 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> section . BILIRUBIN TOTAL Routine 08/24/2021 9:43 Metastatic cancer to Results for this AM 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 the peritoneum procedure are in Neoplasm, malignant the resu lts 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> section . 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 URINALYSIS MICROSCOPIC Routine 08/24/2021 9:00 R esults for this AM 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 procedure are i n the results section. URINALYSIS WITH Routine 08/24/2021 9:00 Metastatic cancer to Results for this MICROSCOPIC IF AM 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 the peritoneum procedure are in INDICATED Neoplasm, malignant the resu lts 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> section . US UPPER EXTREMITY Routine 08/15/2021 1:55 Malignant neoplasm of Results for this LIMITED LEFT PM 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 unspecified ovar y procedure are in Mass of muscle of the result s left upper limb section. PAIN MANAGEMENT Routine 08/03/2021 2:08 Results for this FLUOROSCOPY PM 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 procedure are i n the results section. URINALYSIS MICROSCOPIC Routine 07/29/2021 2:28 R esults for this PM 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 procedure are i n the results section. URINALYSIS WITH Routine 07/29/2021 2:28 Abnormal urinalysis R esults for this MICROSCOPIC IF PM 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 procedure are in INDICATED the results section. URINE CULTURE Routine 07/29/2021 2:28 Abnormal urinalysis Res ults for this PM 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 procedure are i n the results section. URINALYSIS MICROSCOPIC Routine 07/29/2021 9:58 R esults for this AM 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 procedure are i n the results section. CALCIUM LEVEL TOTAL Routine 07/29/2021 9:58 Malignant neoplas m of Results for this AM 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 unspecified ovar y procedure are in Metastatic cancer to the res ults the peritoneum section. .GLOMERULAR FILTRATION Routine 07/29/2021 9:58 Malignant neop lasm of Results for this RATE AM 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 unspecified ovar y procedure are in Metastatic cancer to the res ults the peritoneum section. SERUM CREATININE Routine 07/29/2021 9:58 Malignant neoplasm o f Results for this AM 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 unspecified ovar y procedure are in Metastatic cancer to the res ults the peritoneum section. ELECTROLYTE PANEL Routine 07/29/2021 9:58 Malignant neoplasm of Results for this AM 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 unspecified ovar y procedure are in Metastatic cancer to the res ults the peritoneum section. BLOOD UREA NITROGEN Routine 07/29/2021 9:58 Malignant neoplas m of Results for this AM 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 unspecified ovar y procedure are in Metastatic cancer to the res ults the peritoneum section. GLUCOSE LEVEL Routine 07/29/2021 9:58 Malignant neoplasm of R esults for this AM 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 unspecified ovar y procedure are in Metastatic cancer to the res ults the peritoneum section. MANUAL DIFFERENTIAL Routine 07/29/2021 9:58 Malignant neoplas m of Results for this AM 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 unspecified ovar y procedure are in Metastatic cancer to the res ults the peritoneum section. Results CBC Routine 07/29/2021 9:58 Malignant neoplasm of Re sults for this AM 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 unspecified ovar y procedure are in Metastatic cancer to the res ults the peritoneum section. URINALYSIS WITH Routine 07/29/2021 9:58 Malignant neoplasm of Results for this MICROSCOPIC IF AM 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 unspecified ovar y procedure are in INDICATED Metastatic cancer to the res ults the peritoneum section. MAGNESIUM LEVEL Routine 07/29/2021 9:58 Malignant neoplasm of Results for this AM 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 unspecified ovar y procedure are in Metastatic cancer to the res ults the peritoneum section. ASPARTATE Routine 07/29/2021 9:58 Malignant neoplasm of Re sults for this AMINOTRANSFERASE AM 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 unspecified ova ry procedure are in Metastatic cancer to the res ults the peritoneum section. ALANINE Routine 07/29/2021 9:58 Malignant neoplasm of Re sults for this AMINOTRANSFERASE AM 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 unspecified ova ry procedure are in Metastatic cancer to the res ults the peritoneum section. BILIRUBIN TOTAL Routine 07/29/2021 9:58 Malignant neoplasm of Results for this AM 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 unspecified ovar y procedure are in Metastatic cancer to the res ults the peritoneum section. BASIC METABOLIC PANEL, Routine 07/29/2021 9:58 Malignant neop lasm of CALCIUM TOTAL AM 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 unspecified ovar y 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 COMPLETE BLOOD COUNT W/ Routine 07/29/2021 9:58 Malignant thierno plasm of DIFFERENTIAL AM 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 unspecified ovar y 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 CANCER ANTIGEN 125 Routine 07/29/2021 9:58 Malignant neoplasm of Results for this AM 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 unspecified ovar y procedure are in Metastatic cancer to the res ults the peritoneum section. CT CHEST ABDOMEN PELVIS Routine 07/27/2021 1:59 Malignant thierno plasm of Results for this W CONTRAST PM 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 unspecified ovar y procedure are in Metastatic cancer to the res ults the peritoneum section. POC CREATININE Routine 07/27/2021 1:09 Results f or this PM 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 procedure are i n the results section. URINE CULTURE Routine 07/08/2021 9:43 Dysuria Results fo r this AM 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 procedure are i n the results section. CALCIUM LEVEL TOTAL Routine 07/08/2021 9:21 Malignant neoplas m of Results for this AM 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 unspecified ovar y procedure are in Metastatic cancer to the res ults the peritoneum section. .GLOMERULAR FILTRATION Routine 07/08/2021 9:21 Malignant neop lasm of Results for this RATE AM 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 unspecified ovar y procedure are in Metastatic cancer to the res ults the peritoneum section. SERUM CREATININE Routine 07/08/2021 9:21 Malignant neoplasm o f Results for this AM 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 unspecified ovar y procedure are in Metastatic cancer to the res ults the peritoneum section. ELECTROLYTE PANEL Routine 07/08/2021 9:21 Malignant neoplasm of Results for this AM 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 unspecified ovar y procedure are in Metastatic cancer to the res ults the peritoneum section. BLOOD UREA NITROGEN Routine 07/08/2021 9:21 Malignant neoplas m of Results for this AM 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 unspecified ovar y procedure are in Metastatic cancer to the res ults the peritoneum section. GLUCOSE LEVEL Routine 07/08/2021 9:21 Malignant neoplasm of R esults for this AM 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 unspecified ovar y procedure are in Metastatic cancer to the res ults the peritoneum section. MANUAL DIFFERENTIAL Routine 07/08/2021 9:21 Malignant neoplas m of Results for this AM 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 unspecified ovar y procedure are in Metastatic cancer to the res ults the peritoneum section. Results CBC Routine 07/08/2021 9:21 Malignant neoplasm of Re sults for this AM 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 unspecified ovar y procedure are in Metastatic cancer to the res ults the peritoneum section. MAGNESIUM LEVEL Routine 07/08/2021 9:21 Malignant neoplasm of Results for this AM 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 unspecified ovar y procedure are in Metastatic cancer to the res ults the peritoneum section. ASPARTATE Routine 07/08/2021 9:21 Malignant neoplasm of Re sults for this AMINOTRANSFERASE AM 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 unspecified ova ry procedure are in Metastatic cancer to the res ults the peritoneum section. ALANINE Routine 07/08/2021 9:21 Malignant neoplasm of Re sults for this AMINOTRANSFERASE AM 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 unspecified ova ry procedure are in Metastatic cancer to the res ults the peritoneum section. BILIRUBIN TOTAL Routine 07/08/2021 9:21 Malignant neoplasm of Results for this AM 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 unspecified ovar y procedure are in Metastatic cancer to the res ults the peritoneum section. 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 URINALYSIS MICROSCOPIC Routine 06/17/2021 12:20 R esults for this PM CDT procedure are i n the results section. 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 MANUAL DIFFERENTIAL Routine 06/17/2021 12:03 Malignant neoplas m of Results for this PM CDT unspecified ovar y procedure are in Metastatic cancer to the res ults the peritoneum section. 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 URINE CULTURE Routine 05/13/2021 9:16 Leukocytes in urine Res ults for this AM CDT procedure are i n the results section. URINALYSIS MICROSCOPIC Routine 05/13/2021 8:33 R esults for this AM CDT procedure are i n the results section. 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 MRI LUMBAR SPINE WO Routine 05/07/2021 7:55 Chronic hannah k pain Results for this CONTRAST AM CDT Chronic pain procedure are in Radiculopathy of the results lumbar region section. 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 URINALYSIS MICROSCOPIC Routine 04/22/2021 10:16 R esults for this AM CDT procedure are i n the results section. 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 POC CREATININE Routine 04/20/2021 11:29 Results f or this AM CDT procedure are i n the results section. 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 MANUAL DIFFERENTIAL Routine 03/25/2021 9:32 Malignant neoplas m of Results for this AM CDT unspecified ovar y procedure are in Metastatic cancer to the res ults the peritoneum section. 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 URINALYSIS MICROSCOPIC Routine 03/04/2021 8:29 R esults for this AM CDT procedure are i n the results section. 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 .GLOMERULAR FILTRATION Routine 03/04/2021 8:29 Malignant neop lasm of Results for this RATE AM CDT unspecified ovar y procedure are in Metastatic cancer to the res ults the peritoneum section. SERUM CREATININE Routine 03/04/2021 8:29 Malignant neoplasm o f Results for this AM CDT unspecified ovar y procedure are in Metastatic cancer to the res ults the peritoneum section. 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 BLOOD UREA NITROGEN Routine 03/04/2021 8:29 Malignant neoplas m of Results for this AM CDT unspecified ovar y procedure are in Metastatic cancer to the res ults the peritoneum section. GLUCOSE LEVEL Routine 03/04/2021 8:29 Malignant neoplasm of R esults for this AM CDT unspecified ovar y procedure are in Metastatic cancer to the res ults the peritoneum section. MANUAL DIFFERENTIAL Routine 03/04/2021 8:29 Malignant neoplas m of Results for this AM CDT unspecified ovar y procedure are in Metastatic cancer to the res ults the peritoneum section. Results CBC Routine 03/04/2021 8:29 Malignant neoplasm of Re sults for this AM CDT unspecified ovar y procedure are in Metastatic cancer to the res ults the peritoneum section. MAGNESIUM LEVEL Routine 03/04/2021 8:29 Malignant neoplasm of Results for this AM CDT unspecified ovar y procedure are in Metastatic cancer to the res ults the peritoneum section. ASPARTATE Routine 03/04/2021 8:29 Malignant neoplasm of Re sults for this AMINOTRANSFERASE AM CDT unspecified ova ry procedure are in Metastatic cancer to the res ults the peritoneum section. ALANINE Routine 03/04/2021 8:29 Malignant neoplasm of Re sults for this AMINOTRANSFERASE AM CDT unspecified ova ry procedure are in Metastatic cancer to the res ults the peritoneum section. 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 URINE CULTURE Routine 02/25/2021 10:41 Dysuria Results fo r this AM CDT procedure are i n the results section. CALCIUM LEVEL TOTAL Routine 02/25/2021 9:48 Malignant neoplas m of Results for this AM CDT unspecified ovar y procedure are in Metastatic cancer to the res ults the peritoneum section. .GLOMERULAR FILTRATION Routine 02/25/2021 9:48 Malignant neop lasm of Results for this RATE AM CDT unspecified ovar y procedure are in Metastatic cancer to the res ults the peritoneum section. SERUM CREATININE Routine 02/25/2021 9:48 Malignant neoplasm o f Results for this AM CDT unspecified ovar y procedure are in Metastatic cancer to the res ults the peritoneum section. ELECTROLYTE PANEL Routine 02/25/2021 9:48 Malignant neoplasm of Results for this AM CDT unspecified ovar y procedure are in Metastatic cancer to the res ults the peritoneum section. BLOOD UREA NITROGEN Routine 02/25/2021 9:48 Malignant neoplas m of Results for this AM CDT unspecified ovar y procedure are in Metastatic cancer to the res ults the peritoneum section. GLUCOSE LEVEL Routine 02/25/2021 9:48 Malignant neoplasm of R esults for this AM CDT unspecified ovar y procedure are in Metastatic cancer to the res ults the peritoneum section. MANUAL DIFFERENTIAL Routine 02/25/2021 9:48 Malignant neoplas m of Results for this AM CDT unspecified ovar y procedure are in Metastatic cancer to the res ults the peritoneum section. Results CBC Routine 02/25/2021 9:48 Malignant neoplasm of Re sults for this AM CDT unspecified ovar y procedure are in Metastatic cancer to the res ults the peritoneum section. MAGNESIUM LEVEL Routine 02/25/2021 9:48 Malignant neoplasm of Results for this AM CDT unspecified ovar y procedure are in Metastatic cancer to the res ults the peritoneum section. ASPARTATE Routine 02/25/2021 9:48 Malignant neoplasm of Re sults for this AMINOTRANSFERASE AM CDT unspecified ova ry procedure are in Metastatic cancer to the res ults the peritoneum section. ALANINE Routine 02/25/2021 9:48 Malignant neoplasm of Re sults for this AMINOTRANSFERASE AM CDT unspecified ova ry procedure are in Metastatic cancer to the res ults the peritoneum section. BILIRUBIN TOTAL Routine 02/25/2021 9:48 Malignant neoplasm of Results for this AM CDT unspecified ovar y procedure are in Metastatic cancer to the res ults the peritoneum section. 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 URINALYSIS MICROSCOPIC Routine 02/25/2021 8:41 R esults for this AM CDT procedure are i n the results section. URINALYSIS WITH Routine 02/25/2021 8:41 Malignant neoplasm of Results for this MICROSCOPIC IF AM CDT unspecified ovar y procedure are in INDICATED Metastatic cancer to the res ults the peritoneum section. URINALYSIS MICROSCOPIC Routine 02/18/2021 8:23 R esults for this AM CDT procedure are i n the results section. CALCIUM LEVEL TOTAL Routine 02/18/2021 8:23 Malignant neoplas m of Results for this AM CDT unspecified ovar y procedure are in Metastatic cancer to the res ults the peritoneum section. .GLOMERULAR FILTRATION Routine 02/18/2021 8:23 Malignant neop lasm of Results for this RATE AM CDT unspecified ovar y procedure are in Metastatic cancer to the res ults the peritoneum section. SERUM CREATININE Routine 02/18/2021 8:23 Malignant neoplasm o f Results for this AM CDT unspecified ovar y procedure are in Metastatic cancer to the res ults the peritoneum section. ELECTROLYTE PANEL Routine 02/18/2021 8:23 Malignant neoplasm of Results for this AM CDT unspecified ovar y procedure are in Metastatic cancer to the res ults the peritoneum section. BLOOD UREA NITROGEN Routine 02/18/2021 8:23 Malignant neoplas m of Results for this AM CDT unspecified ovar y procedure are in Metastatic cancer to the res ults the peritoneum section. GLUCOSE LEVEL Routine 02/18/2021 8:23 Malignant neoplasm of R esults for this AM CDT unspecified ovar y procedure are in Metastatic cancer to the res ults the peritoneum section. MANUAL DIFFERENTIAL Routine 02/18/2021 8:23 Malignant neoplas m of Results for this AM CDT unspecified ovar y procedure are in Metastatic cancer to the res ults the peritoneum section. Results CBC Routine 02/18/2021 8:23 Malignant neoplasm of Re sults for this AM CDT unspecified ovar y procedure are in Metastatic cancer to the res ults the peritoneum section. MAGNESIUM LEVEL Routine 02/18/2021 8:23 Malignant neoplasm of Results for this AM CDT unspecified ovar y procedure are in Metastatic cancer to the res ults the peritoneum section. ASPARTATE Routine 02/18/2021 8:23 Malignant neoplasm of Re sults for this AMINOTRANSFERASE AM CDT unspecified ova ry procedure are in Metastatic cancer to the res ults the peritoneum section. ALANINE Routine 02/18/2021 8:23 Malignant neoplasm of Re sults for this AMINOTRANSFERASE AM CDT unspecified ova ry procedure are in Metastatic cancer to the res ults the peritoneum section. BILIRUBIN TOTAL Routine 02/18/2021 8:23 Malignant neoplasm of Results for this AM CDT unspecified ovar y procedure are in Metastatic cancer to the res ults the peritoneum section. 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 URINALYSIS WITH Routine 02/18/2021 8:23 Malignant neoplasm of Results for this MICROSCOPIC IF AM CDT unspecified ovar y procedure are in INDICATED Metastatic cancer to the res ults the peritoneum section. PAIN MANAGEMENT Routine 01/28/2021 3:52 Chronic back pain Res ults for this ULTRASOUND PM CDT procedure are i n the results section. PAIN MANAGEMENT Routine 01/28/2021 2:52 Chronic back pain Res ults for this FLUOROSCOPY PM CDT procedure are i n the results section. PAIN MANAGEMENT Routine 01/28/2021 2:51 Chronic back pain Res ults for this ULTRASOUND PM CDT procedure are i n the results section. CT CHEST ABDOMEN PELVIS Routine 01/19/2021 3:12 Malignant thierno plasm of Results for this W CONTRAST PM CDT unspecified ovary procedure are in the results section. POC CREATININE Routine 01/19/2021 2:22 Results f or this PM CDT procedure are i n the results section. CALCIUM LEVEL TOTAL Routine 01/19/2021 2:14 Malignant neoplas m of Results for this PM CDT unspecified ovar y procedure are in Metastatic cancer to the res ults the peritoneum section. .GLOMERULAR FILTRATION Routine 01/19/2021 2:14 Malignant neop lasm of Results for this RATE PM CDT unspecified ovar y procedure are in Metastatic cancer to the res ults the peritoneum section. SERUM CREATININE Routine 01/19/2021 2:14 Malignant neoplasm o f Results for this PM CDT unspecified ovar y procedure are in Metastatic cancer to the res ults the peritoneum section. ELECTROLYTE PANEL Routine 01/19/2021 2:14 Malignant neoplasm of Results for this PM CDT unspecified ovar y procedure are in Metastatic cancer to the res ults the peritoneum section. BLOOD UREA NITROGEN Routine 01/19/2021 2:14 Malignant neoplas m of Results for this PM CDT unspecified ovar y procedure are in Metastatic cancer to the res ults the peritoneum section. GLUCOSE LEVEL Routine 01/19/2021 2:14 Malignant neoplasm of R esults for this PM CDT unspecified ovar y procedure are in Metastatic cancer to the res ults the peritoneum section. MANUAL DIFFERENTIAL Routine 01/19/2021 2:14 Malignant neoplas m of Results for this PM CDT unspecified ovar y procedure are in Metastatic cancer to the res ults the peritoneum section. Results CBC Routine 01/19/2021 2:14 Malignant neoplasm of Re sults for this PM CDT unspecified ovar y procedure are in Metastatic cancer to the res ults the peritoneum section. MAGNESIUM LEVEL Routine 01/19/2021 2:14 Malignant neoplasm of Results for this PM CDT unspecified ovar y procedure are in Metastatic cancer to the res ults the peritoneum section. ASPARTATE Routine 01/19/2021 2:14 Malignant neoplasm of Re sults for this AMINOTRANSFERASE PM CDT unspecified ova ry procedure are in Metastatic cancer to the res ults the peritoneum section. ALANINE Routine 01/19/2021 2:14 Malignant neoplasm of Re sults for this AMINOTRANSFERASE PM CDT unspecified ova ry procedure are in Metastatic cancer to the res ults the peritoneum section. BILIRUBIN TOTAL Routine 01/19/2021 2:14 Malignant neoplasm of Results for this PM CDT unspecified ovar y procedure are in Metastatic cancer to the res ults the peritoneum section. BASIC METABOLIC PANEL, Routine 01/19/2021 2:14 Malignant neop lasm of CALCIUM TOTAL PM CDT unspecified ovar y 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 COMPLETE BLOOD COUNT W/ Routine 01/19/2021 2:14 Malignant thierno plasm of DIFFERENTIAL PM CDT unspecified ovar y 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 CANCER ANTIGEN 125 Routine 01/19/2021 2:14 Malignant neoplasm of Results for this PM CDT unspecified ovar y procedure are in Metastatic cancer to the res ults the peritoneum section. after 12/29/2020 Results .Serum Creatinine (11/04/2021 8:45 AM CDT)Only the most recent of15 results within the time period is included. Pathologist Sig nature Creatinine 0.70Comment: Testing 0.51 - 0.95 mg/dL [facility] performed at [facility] [place], [address] [place] [address] Specimen Blood Performing Organization Address City/State/ZIP Code Phon e Number [address] (ABNORMAL) .CBC (11/04/2021 8:45 AM CDT)Only the most recent of15 resultswithin the time period is included. Pathologist Sig nature WBC 5.6Comment: All 4.0 - 11.0 K/uL [facility] components of the CBC performed at [facility] [place], [address] [place] [address] RBC 3.84 (L)Comment: As 4.00 - 5.50 [facility] [place] part of CBC testing M/uL performed at [facility] [place], [address] [place] [address] Hgb 11.3 (L)Comment: As 12.0 - 16.0 [facility] [place] part of CBC or as an gm/dL individual orderable testing performed at [facility] [place], [address] [place] [address] Hct 35.7 (L)Comment: As 37.0 - 47.0 % [facility] [place] part of CBC or as an individual orderable testing performed at [facility] [place], [address] [place] [address] MCV 93Comment: As part 82 - 98 fL [facility] of CBC testing performed at [facility] [place], [address] [place] [address] MCH 29.4Comment: As part 27.0 - 31.0 pg [facility] of CBC testing performed at [facility] [place], [address] [place] [address] MCHC 31.7Comment: As part 31.0 - 36.[address] [facility] of CBC testing gm/dL performed at [facility] [place], [address] [place] [address] RDW-SD 44.0Comment: As part 35.1 - 46.3 fL [facility] of CBC testing performed at [facility] [place], [address] [place] [address] RDW-CV 13.3Comment: As part 12.0 - 15.5 % [facility] of CBC testing performed at [facility] [place], [address] [place] [address] Platelet count 152Comment: As part 140 - 440 K/uL [facility] of CBC or as an individual orderable testing performed at [facility] [place], [address] [place] [address] MPV 10.8 (H)Comment: As 4.0 - 10.4 fL [facility] part of CBC testing performed at [facility] [place], [address] [place] [address] Specimen Blood Performing Organization Address City/State/ZIP Code Phon e Number [address] Glomerular Filtration Rate (11/04/2021 8:45 AM CDT)Only the most recent of15 resultswithin the time period is included. [facility] nature eGFR-AA 91 >=[address] [facility] Comment: mL/min/1.73 sq. Normal eGFR >= 60 mL/min/1.73 m2 m Note: The eGFR is calculated using the CKD-EPI equation. The eGFR declines with age. eGFR <60 mL/min/1.73 m2 is considered as "decreased". This equation should only be used for patients 18 and older. According to the National dney Foundation's Kidney Disease Outcome Quality Initiative (KDOQI) classification and 2012 Kidney Disease Improving Global Outcomes (KDIGO) Clinical Practice Guideline, the stage of CKD should be categorized based on estimated GFR. Stage Description GFR mL/min/1.73 m2 1 Normal or high GFR >=90 2 Mildly decreased GFR 60-89 3a Mildly to moderately decreased GFR 45-59 3b Moderately to severely decreased GFR 30-44 4 Severely decreased GFR 15-29 5 Kidney failure <15 Testing performed at [facility], [address] [place] [address] eGFR-GERBER 79 >=60 [facility] Comment: mL/min/1.73 sq. Normal eGFR >= 60 mL/min/1.73 m2 m Note: The eGFR is calculated using the CKD-EPI equation. The eGFR declines with age. eGFR <60 mL/min/1.73 m2 is considered as "decreased". This equation should only be used for patients 18 and older. According to the National dney Foundation's Kidney Disease Outcome Quality Initiative (KDOQI) classification and 2012 Kidney Disease Improving Global Outcomes (KDIGO) Clinical Practice Guideline, the stage of CKD should be categorized based on estimated GFR. Stage Description GFR mL/min/1.73 m2 1 Normal or high GFR >=90 2 Mildly decreased GFR 60-89 3a Mildly to moderately decreased GFR 45-59 3b Moderately to severely decreased GFR 30-44 4 Severely decreased GFR 15-29 5 Kidney failure <15 Testing performed at [facility], [address] [place], [place] [id number] Specimen Blood Performing Organization Address City/State/ZIP [place] [address] [place] [address] (ABNORMAL) Urinalysis with Microscopic (11/04/2021 8:45 AM CDT)Only the most recent of11 resultswithin the time period is included. UA WBC 5-10 (A)Comment: All 0 - 2 /HPF [facility] components of UA Microscopic Exam performed at [facility] [place], [address] [place] [address] UA RBC 0-2Comment: As part 0 - 2 /HPF [facility] [place] of the UA Microscopic Exam performed at [facility] [place], [address] [place] [address] UA Mucous TRACEComment: As part Not Seen-Trace [facility] [place] of the UA Microscopic /HPF Exam performed at [facility] [place], [address] [place] [address] UA Bacteria NOT SEENComment: As NOT SEEN /HPF [facility] [place] part of the UA Microscopic Exam performed at [facility] [place], [address] [place] [address] UA Squam Epi OCCComment: As part None-Occasional [facility] [place] of the UA Microscopic /HPF Exam performed at [facility] [place], [address] [place] [address] UA Amorph Leesa OCC (A)Comment: As NOT SEEN /HPF [facility] [place] part of the UA Microscopic Exam performed at [facility] [place], [address] [place] [address] Specimen Urine Narrative [facility] - 11/04/2021 9:22 AM CDT Some reporting parameters within the Urinalysis test have changed due to the implementation of new instrumentation in the [facility], allowing greater sensitivity of measurement. Urinalysis results rep orted by the [facility] using existing instrumentation, as well as Urinalysis t esting performed manually or by backup methodology at the [facility] will remain relatively unchanged. New reporting parameters and units will now be reported for all campuses. Performing Organization Address City/State/ZIP Code Phon e Number [facility] [place] [id number] [place] [address] (ABNORMAL) Differential (11/04/2021 8:45 AM CDT)Only the most recent of15 resultswithin the time period is included. Neutrophil % 56.7Comment: All 42.0 - 66.0 % [facility] components of the Differential performed at [facility] [place], [address] [place] [address] Lymphocyte % 28.9Comment: As part 24.0 - 44.0 % [facility] [place] of Differential, testing performed at [facility] [place], [address] [place] [address] Monocyte % 11.3 (H)Comment: As 2.0 - 7.0 % [facility] [place] part of Differential, testing performed at [facility] [place], [address] [place] [address] Eosinophil % 2.7Comment: As part of 1.0 - 4.0 % [facility] [place] Differential, testing performed at [facility] [place], [address] [place] [address] Basophil % 0.4Comment: As part of 0.0 - 1.0 % [facility] Differential, testing performed at [facility] [place], [address] [place] [address] Neutrophil Abs 3.16Comment: As part 1.70 - 7.30 [facility] [place] of Differential, K/uL testing performed at [facility] [place], [address] [place] [address] Lymphocyte Abs 1.61Comment: As part 1.00 - 4.80 [facility] [place] of Differential, K/uL testing performed at [facility] [place], [address] [place] [address] Monocyte Abs 0.63Comment: As part 0.08 - 0.70 [facility] [place] of Differential, K/uL testing performed at [facility] [place], [address] [place] [address] Eosinophil Abs 0.15Comment: As part 0.04 - 0.40 [facility] [place] of Differential, K/uL testing performed at [facility] [place], [address] [place] [address] Basophil Abs 0.02Comment: As part 0.00 - 0.10 [facility] of Differential, K/uL testing performed at [facility] [place], [address] [place] [address] Specimen Blood Performing Organization Address City/State/ZIP Code Phon e Number [address] (ABNORMAL) Urinalysis w/Microscopic if Indicated (11/04/2021 8:45 AM CDT)Only the most recent of11 resultswithin the time period is included. UA Color Light YellowComment: Straw-Yellow [facility] [place] All components of UA Macroscopic performed at [facility] [place], [address] [place] [address] UA Appear ClearComment: As part Clear [facility] [place] of the UA Macroscopic performed at [facility] [place], [address] [place] [address] UA Glucose NEGComment: As part NEG mg/dL [facility] [place] of the UA Macroscopic performed at [facility] [place], [address] [place] [address] UA Bili NEGComment: As part NEG [facility] [place] of the UA Macroscopic performed at [facility] [place], [address] [place] [address] UA Ketones NEGComment: As part NEG mg/dL [facility] [place] of UA Macroscopic or as an individual orderable testing performed at [facility] [place], [address] [place] [address] UA Spec Grav 1.015Comment: As part 1.003 - 1.035 [facility] [place] of UA Macroscopic or as an individual orderable testing performed at [facility] [place], [address] [place] [address] UA Blood NEGComment: As part NEG [facility] [place] of the UA Macroscopic performed at [facility] [place], [address] [place] [address] UA pH 6.5Comment: As part 5.0 - 9.0 [facility] [place] of UA Macroscopic or as an individual orderable testing performed at [facility] [place], [address] [place] [address] UA Protein NEGComment: As part NEG mg/dL [facility] [place] of the UA Macroscopic performed at [facility] [place], [address] [place] [address] UA Urobilinogen NEGComment: As part NEG [facility] [place] of the UA Macroscopic performed at [facility] [place], [address] [place] [address] UA Nitrite NEGComment: As part NEG [facility] [place] of the UA Macroscopic performed at [facility] [place], [address] [place] [address], [place] [address] UA Leuk Est Moderate (A)Comment: NEG [facility] [place] As part of the UA Macroscopic performed at [facility] [place], [address] [place] [address] Specimen Urine Performing Organization Address City/[facility]/ZIP Code Phon e Number [place] [id number] [place] [address] (ABNORMAL) CA 125 (11/04/2021 8:45 AM CDT)Only the most recent of15 results within the time period is included. CA 125 104.4 (H) <=38.0 U/mL MIA DELATORRE Comment: Results greater than 11,500. 0 U/L may not be reliable due to matrix effect with extended dilution as it exceeds the dairy cattle farm manager s recommended limit. Caution should be exercised when interpreting such values and done in conjunction with clinical context. Reference intervals are not available for male patients. Results should be interpreted in conjunction with clinical context. This test is measured by jerri ctrochemiluminescence immunoassay on Katherine Nilesh immunoassay analyzers. Results obtained in different methods are not interchangeable. Testing performed at [facility], [address] [place] [address] Specimen Blood Performing Organization Address City/[facility] [place] [address] [place] [address] BUN (11/04/2021 8:45 AM CDT)Only the most recent of15 resultswithin the time period is included. Pathologist Sig nature BUN 6Comment: Testing 6 - 23 mg/dL [facility] [place] performed at [facility] [place], [address] [place] [address] Specimen Blood Performing Organization Address City/[facility]/ZIP [facility] Phon e Number [facility] [place] [id number] [place] [address] ALT (11/04/2021 8:45 AM CDT)Only the most recent of15 resultswithin the time period is included. Pathologist Sig nature ALT 9Comment: Testing performed <=33 U/L [facility] [place] at [facility] [place], [address] [place] [address] Specimen Blood Performing Organization Address City/[facility] [place] [address] [place] [address] AST (11/04/2021 8:45 AM CDT)Only the most recent of15 resultswithin the time period is included. Pathologist Sig nature AST 22Comment: Testing performed <=32 U/L [facility] MELISSAJOSHUA D [facility], [address] [place] [address] Specimen Blood Performing Organization Address City/[facility] [place] [address] [place] [address] Magnesium (11/04/2021 8:45 AM CDT)Only the most recent of15 resultswithin the time period is included. Pathologist Sig nature Magnesium 1.7Comment: Testing 1.6 - 2.6 mg/dL [facility] performed at [facility] [place], [address] [place] [address] Specimen Blood Performing Organization Address [facility] [place] [address] [place] [address] Glucose Level (11/04/2021 8:45 AM CDT)Only the most recent of15 resultswithin the time period is included. Pathologist Sig nature Glucose Level 76 70 - 99 mg/dL [facility] Comment: Effective 03/15/16, the gluco se reference intervals have been updated based on [place] [employer] guidelines (Standards of Medical Care in Diabetes 2016. Diabetes Care 2016; 39: S13-S22). Fasting blood glucose: Normal: 70-99 mg/dL Impaired fasting glucose (in creased risk for diabetes or pre-diabetes): 100- 125 mg/dL Diabetes mellitus: >/=126 mg/dL Random blood glucose: Normal: 70-199 mg/dL Note: Random glucose >100 mg/dL is assoc iated with increased risk for diabetes Testing performed at [facility], [address] [place] [address] Specimen Blood Performing Organization Address City/State/ZIP Code Phon e Number [facility] [place] [address] [place] [address] Calcium Level (11/04/2021 8:45 AM CDT)Only the most recent of15 resultswithin the time period is included. Pathologist Sig susie Calcium Lvl 9.3Comment: Testing 8.4 - 10.2 mg/dL [facility] performed at [facility] [place], [address] [place] [address] Specimen Blood Performing Organization Address City/[facility] Phon e Number [address] Bilirubin, total (11/04/2021 8:45 AM CDT)Only the most recent of15 results within the time period is included. Pathologist Sig susie Bili Total 0.3 <=1.2 mg/dL [facility] Comment: Indocyanine Green (ICG) may cause falsely elevated bilirubin results. Total and direct bilirubin must not be measured from samples containing indocyanine green. False elevation of total maricruz irubin can be seen in patients with IgG concentrations above 28 g/L. Testing performed at [facility], [address] [place] [address] Specimen Blood Performing Organization Address City/[facility] Phon e Number [address] (ABNORMAL) Electrolyte Panel (11/04/2021 8:45 AM CDT)Only the most recent of15 resultswithin the time period is included. Pathologist Sig susie Sodium Lvl 135 (L)Comment: 136 - 145 mEq/L [facility] Testing performed at [facility] [place], [address] [place] [address] Potassium Lvl 4.4Comment: Testing 3.5 - 5.1 mEq/L [facility] performed at [facility] [place], [address] [place] [address] Chloride 101Comment: Testing 98 - 107 mEq/L [facility] performed at [facility] [place], [address] [place], [place] [id number] CO2 25Comment: Testing 22 - 29 mEq/L [facility] performed at [facility] [place], [address] [place] [address] Anion Gap 9Comment: Testing 4 - 14 mEq/L [facility] performed at [facility] [place], [address] [place] [address] Specimen Blood Performing Organization Address City/State/ZIP Code Phon e Number [facility] [place] [address] [address] [facility] [address] Chest Abdomen Pelvis with Contrast (10/04/2021 1:16 PM 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)Only the most recent of4 resultswithin the time period is included. Anatomical Region Laterality Modality Abdomen, Pelvis, Chest Computed Tomograp hy Specimen Impressions [id number] - 10/05/2021 3:25 PM 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 1. Complex pelvic cystic mass with jim id components is not significantly changed since 07/27/2021 though appears slightly increased when compared to 04/20/2021. Additionally, a solid subcomponent within the mass has enlarged since 04/20/2021. 2. No significant changes in the left upper quadrant peritoneal haziness which is indeterminate and can be reevaluated at time of follow-up imaging. 3. Small amount of nonocclusive thromb us in the right internal jugular vein near the infusion catheter entry site. Findings were discussed over the phone w darlin DAILEY at 3:23 PM on 08/04/2021. Narrative [id number] - 10/05/2021 3:25 PM 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 FULL RESULT: Examination: CT CHEST ABDOMEN PELVIS Wendy ARITA, 10/04/2021 1:16 PM Clinical History: 86-year-old female wit h ovarian cancer. Indication: Restaging Comparison: Prior CTs of the chest, abdo men, and pelvis, most recent 07/27/2021 Technique: CT of the chest, abdomen, and pelvis was performed with intravenous contrast. Findings: CHEST: Lines and tubes: Right infusion port cat heter with tip near the superior cavoatrial junction. A small amount of nonocclusive thrombus in the right internal jugular vein identified near the catheter entry site (series 4 image 21; series 601 image 63). Lungs and pleura: Few subcentimeter pulm onary nodules which are not significant changed. No new or suspicious pulmonary nodule. Mediastinum and neck: No adenopathy by C T size criteria. Few low-attenuation thyroid lesions are not significantly changed. Cardiac: No cardiomegaly or pericardial effusion. Musculoskeletal: No soft tissue masses. No aggressive appearing skeletal lesions. Several chronic appearing left-sided rib fracture deformities. ABDOMEN: Hepatobiliary: Couple of subcentimeter l ow-attenuation hepatic lesions, too small to characterize, and not significant changed and likely benign. Gallbladder is unremarkable. No biliary dilatation. Pancreas: Within normal limits. Spleen: Within normal limits. Adrenals: Within normal limits. Genitourinary: Bilateral renal parenchym al scarring. Subcentimeter low- attenuation renal lesions bilaterally, likely benign. No hydronephrosis. The bladder is unremarkable. Status post hysterectomy. Cystic mass wi th solid components in the central pelvis is similar to 07/27/2021 CT measuring 7.2 cm x 5.3 cm though slightly increased in size when compared to CT performed measuring 7.1 cm x 4.5 cm at th at time. Additionally, a solid subcomponent along the left lateral wall has increased in thickness since 04/20/2021 as well measuring 1.8 cm in thickness on the c urrent exam (series 2 image 227; previou sly 1.2 cm on 04/20/2021); the solid components are similar to CT 07/27/2021. Gastrointestinal: Right lower abdominal colostomy. Associated parastomal hernia containing nonobstructed small bowel. Distal ileal and colonic diverticulosis. Rectosigmoid colon courses along the superi or margin of the complex cystic pelvic m ass without upstream bowel dilatation. Large hiatal hernia. Vascular: Aortoiliac atherosclerosis. Re troaortic left renal vein. Lymph nodes: No enlarged or abnormal michael earing lymph nodes. MSK/Body Wall: No suspicious osseous les ion. T11 and T12 compression deformity status post vertebral body augmentation. Right paravertebral high attenuation at the level of T11 which presumably represen ts cement material. Chronic appearing le ft inferior pubic ramus fracture deformity. Peritoneum/Other: Subtle peritoneal hazi ness in the left upper quadrant (example on series 4 image 152) is not significantly changed compared to prior studies. No extraluminal gas. Procedure Note Artemio Martinez MD - 10/05/2021 FULL RESULT: Examination: CT CHEST ABDOMEN PELVIS W Tri ARITA, 10/04/2021 1:16 PM Clinical History: 86-year-old female wit h ovarian cancer. Indication: Restaging Comparison: Prior CTs of the chest, abdo men, and pelvis, most recent 07/27/2021 Technique: CT of the chest, abdomen, and pelvis was performed with intravenous contrast. Findings: CHEST: Lines and tubes: Right infusion port cat heter with tip near the superior cavoatrial junction. A small amount of nonocclusive thrombus in the right internal jugular vein identified near the catheter entry site (series 4 image 21; series 601 image 63). Lungs and pleura: Few subcentimeter pulm onary nodules which are not significant changed. No new or suspicious pulmonary nodule. Mediastinum and neck: No adenopathy by C T size criteria. Few low-attenuation thyroid lesions are not significantly changed. Cardiac: No cardiomegaly or pericardial effusion. Musculoskeletal: No soft tissue masses. No aggressive appearing skeletal lesions. Several chronic appearing left-sided rib fracture deformities. ABDOMEN: Hepatobiliary: Couple of subcentimeter l ow-attenuation hepatic lesions, too small to characterize, and not significant changed and likely benign. Gallbladder is unremarkable. No biliary dilatation. Pancreas: Within normal limits. Spleen: Within normal limits. Adrenals: Within normal limits. Genitourinary: Bilateral renal parenchym al scarring. Subcentimeter low- attenuation renal lesions bilaterally, likely benign. No hydronephrosis. The bladder is unremarkable. Status post hysterectomy. Cystic mass wi th solid components in the central pelvis is similar to 07/27/2021 CT measuring 7.2 cm x 5.3 cm though slightly increased in size when compared to CT performed 04/20/2021 measuring 7.1 cm x 4.5 cm at that time. Additionally, a solid subcomponent along the left lateral wall has increased in thickness since 04/20/2021 as well measuring 1.8 cm in thickness on the current exam (series 2 image 227; previously 1.2 cm on 04/20/2021); t he solid components are similar to CT 07/27/2021. Gastrointestinal: Right lower abdominal colostomy. Associated parastomal hernia containing nonobstructed small bowel. Distal ileal and colonic diverticulosis. Rectosigmoid colon courses along the superior margin of the complex cystic pelvic mass without u pstream bowel dilatation. Large hiatal hernia. Vascular: Aortoiliac atherosclerosis. Re troaortic left renal vein. Lymph nodes: No enlarged or abnormal michael earing lymph nodes. MSK/Body Wall: No suspicious osseous les ion. T11 and T12 compression deformity status post vertebral body augmentation. Right paravertebral high attenuation at the level of T11 which presumably represents cement material. Chronic appearing left inferio r pubic ramus fracture deformity. Peritoneum/Other: Subtle peritoneal hazi ness in the left upper quadrant (example on series 4 image 152) is not significantly changed compared to prior studies. No extraluminal gas. IMPRESSION: 1. Complex pelvic cystic mass with po d components is not significantly changed since 07/27/2021 though appears slightly increased when compared to 04/20/2021. Additionally, a solid subcomponent within the mass has enlarged since 04/20/2021. 2. No significant changes in the left u pper quadrant peritoneal haziness which is indeterminate and can be reevaluated at time of follow-up imaging. 3. Small amount of nonocclusive thrombu s in the right internal jugular vein near the infusion catheter entry site. Findings were discussed over the phone w darlin DAILEY at 3:23 PM on 08/04/2021. Performing Organization Address City/State/ZIP Code Phon e Number [id number] Urine Culture (09/14/2021 1:53 AM 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)Only the most recent of5 resultswithin the time period is included. Final Report No growth [facility] [place] Path Review - The results have been review ed and electronically signed by Pathologist: [facility] Urine Diana Rose MD, PhD #[id number] [facility] Specimen Urine, Clean Catch Performing Organization Address City/State/ZIP Code Phon e Number [facility] Unless otherwise noted, [place] [address] CENTER all lab tests performed by: Division of Pathology and Laboratory Medicine [address] [place] [address] [place] Upper Extremity Limited Left (08/15/2021 1:55 PM 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) Anatomical Region Laterality Modality Arm, Extremity Left Ultrasound Specimen Impressions [id number] - 08/15/2021 2:10 PM 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 Palpable abnormality corresponds to a sm all intramuscular mass, with 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 This may be confirmed with MRI, as clinically warranted. 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 Technique: Focused grayscale and color D oppler ultrasound of the soft tissues in the left upper arm was performed, in the region of palpable abnormality, as directed by the patient. Findings: The palpable abnormality corresponds to a well-circumscribed area within the left deltoid muscle, measuring approximately 2.1 x 1 x 2 cm. No internal vascularity is detected within it on color Doppler i nterrogation. Its internal echotexture i s identical to that of the subcutaneous fat. The sonographic features suggest the possibility of an intramuscular lipoma. 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 Technique: Focused grayscale and color D oppler ultrasound of the soft tissues in the left upper arm was performed, in the region of palpable abnormality, as directed by the patient. Findings: The palpable abnormality corresponds to a well-circumscribed area within the left deltoid muscle, measuring approximately 2.1 x 1 x 2 cm. No internal vascularity is detected within it on color Doppler interrogation. Its internal echotexture is identical to that of the subcutaneous fat. The sonographic features suggest the possibility of an intramuscular lipoma. 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 This may be confirmed with MRI, as clinically warranted. Performing Organization Address City/State/ZIP Code Phon e Number [id number] Pain Management Fluoroscopy (08/03/2021 2:08 PM 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)Only the most recent of2 resultswithin the time period is included. Anatomical Region Laterality Modality X-Ray Angiography Specimen Narrative Systemgenerated, Documentation - 021 2:08 PM 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 This procedure requires no interpretatio n from the radiologist. (ABNORMAL) POC Creatinine (07/27/2021 1:09 PM 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)Only the most recent of3 resultswithin the time period is included. POC Crea 0.9 0.6 - 1.3 POC [facility] Comment: mg/dL Medications, especially hydr oxyurea or supplements, such as ascorbate, can interfere with test results causing a falsely and significantly higher result than expected. If a problem is suspected with a patient's result, a sample should be sent to the laboratory for confirmatory testing. Method description: The i-ST AT is an analyzer used for in vitro quantification of various analytes in whole blood. The device uses a single disposable cartridge which contains microfabricated sensors, a calibration solution, fluidics system, and a waste chamber. Each test cartridge contains chemically sensitive biosensors on a silicon chip that are configured to perform specific tests. The microfabricated sensors measure analyte concentration by an electrochemical assay. POC eGFR-AA 68 >=60 POC [facility] Comment: mL/min/1.73 m2 Normal eGFR >= 60 mL/min/1.73 m2 The eGFR is calculated using the CKD-EPI equation. The eGFR declines with age. eGFR <60 mL/min/1.73 m2 is considered as "decreased" This equation should only be used for patients 18 and older. According to the National [facility]'s Kidney Disease Outcome Quality Initiative (KDOQI) classification and 2012 Kidney Disease Improving Global Outcomes (KDIGO) Clinical Practice Guideline, the stage of CKD should be categorized based on estimated GFR. Stage Description GFR mL/min/1.73 m2 1 Kidney damage with normal or high GFR >=90 2 Kidney damage with mild decrease in GFR 60-89 3a Mild to moderate decrease in GFR 45-59 3b Moderate to severe decrease in GFR 30-44 4 Severe decrease in GFR 15-29 5 Kidney failure <15 (or dialysis) POC eGFR-GERBER 58 (L) >=60 POC [facility] Comment: mL/min/1.73 m2 Normal eGFR >= 60 mL/min/1.73 m2 The eGFR is calculated using the CKD-EPI equation. The eGFR declines with age. eGFR <60 mL/min/1.73 m2 is considered as "decreased" This equation should only be used for patients 18 and older. According to the National [facility]'s Kidney Disease Outcome Quality Initiative (KDOQI) classification and 2012 Kidney Disease Improving Global Outcomes (KDIGO) Clinical Practice Guideline, the stage of CKD should be categorized based on estimated GFR. Stage Description GFR mL/min/1.73 m2 1 Kidney damage with normal or high GFR >=90 2 Kidney damage with mild decrease in GFR 60-89 3a Mild to moderate decrease in GFR 45-59 3b Moderate to severe decrease in GFR 30-44 4 Severe decrease in GFR 15-29 5 Kidney failure <15 (or dialysis) POC Clean Dev Yes POC [facility] POC [facility] [place] [address], Point of Care Mastic Floor Layer: Cindy Rose MD Specimen Blood Performing Organization Address City/State/ZIP Code Phon e Number POC [facility] MRI Lumbar Spine without Contrast (05/07/2021 7:55 AM CDT) Anatomical Region Laterality Modality L-spine, Spine Magnetic Resonance Specimen Impressions [id number] - 05/07/2021 10:34 AM CDT No acute change chronic spondylotic changes. No acute fracture or manifestation of acute metastatic process. Narrative [id number] - 05/07/2021 10:34 AM CDT FULL RESULT: Examination: MRI LUMBAR SPINE KHRIS Velazquez, 05/07/2021 7:55 AM Clinical History: Chronic back pain. Ova missy carcinoma. Indication: Low back pain, Low back pa in, less than 6 weeks, No MR contraindication, Lower extremity weakness, Lumbar radiculopathy Comparison: CT chest abdomen pelvis as sessment 01/19/2021. Technique: Multiplanar MRI of the lumb ar spine without intravenous contrast using multisequence parameters was performed per departmental protocol. Findings: Lumbosacral spine: Correlating with CT i maging or chronic spondylotic changes in the lumbar spine region. There is a persistent grade 1 anterolisthesis of L4 and L5 and advanced disc space narrowing of L5-S1 level. Chronic minimal posterior d isc bulges L1-L2 and L3-L4. Chronic appearing facet joint osteoarthropathy L5-S1 (image 35 series 7). No discrete acute marrow alteration dete cted suggesting metastatic involvement. Chronic vertebroplasty cementation assoc iated with the stable T11 and T12 compression deformities. Sacrum and posterior ilium: Intact with no manifestation of metastatic involvement. Marrow signal is homogenous on noncontra st imaging assessment.. No cord compression is seen. No cord sig nal abnormality is noted. No significant spinal canal stenosis i s present. Procedure Note Ruddy Matta MD - 05/07/2021 FULL RESULT: Examination: MRI LUMBAR SPINE WO LASHAY Velazquez, 05/07/2021 7:55 AM Clinical History: Chronic back pain. Ova missy carcinoma. Indication: Low back pain, Low back shahnaz n, less than 6 weeks, No MR contraindication, Lower extremity weakness, Lumbar radiculopathy Comparison: CT chest abdomen pelvis ass essment 01/19/2021. Technique: Multiplanar MRI of the lumba r spine without intravenous contrast using multisequence parameters was performed per departmental protocol. Findings: Lumbosacral spine: Correlating with CT i maging or chronic spondylotic changes in the lumbar spine region. There is a persistent grade 1 anterolisthesis of L4 and L5 and advanced disc space narrowing of L5-S1 level. Chronic minimal posterior disc bu lges L1-L2 and L3-L4. Chronic appearing facet joint osteoarthropathy L5-S1 (image 35 series 7). No discrete acute marrow alteration dete cted suggesting metastatic involvement. Chronic vertebroplasty cementation assoc iated with the stable T11 and T12 compression deformities. Sacrum and posterior ilium: Intact with no manifestation of metastatic involvement. Marrow signal is homogenous on noncontra st imaging assessment.. No cord compression is seen. No cord sig nal abnormality is noted. No significant spinal canal stenosis is present. IMPRESSION: No acute change chronic spondylotic day ges. No acute fracture or manifestation of acute metastatic process. Performing Organization Address City/State/ZIP Code Phon e Number [id number] Pain Management Ultrasound (01/28/2021 3:52 PM CDT)Only the most recent of2 resultswithin the time period is included. Anatomical Region Laterality Modality Ultrasound Specimen Narrative Systemgenerated, Documentation - 021 3:52 PM CDT This procedure requires no interpretatio n from the radiologist. after 12/29/2020 Insurance Payer Benefit Plan / Subscriber ID Effective Phone Address T ype Group Dates [facility] MEDICARE [id number] 2020-Prese [address] [address] Medicare HEALTHCARE ADVANTAGE [place], [place] [employer] [id number] Care Teams Cook Larder Relationship Specialty Start Date End Date Mayte Kaur, PCP - External Obstetrics/Gynecology 06/03/20 Ref[address] [address] Almita Batres, PCP - General Gynecological Oncology 06/07/[address] [place] [address] [phone]
--- OUTSIDE RECORDS SUMMARY | 2021-12-29 20:16 | XMS REPORT | Continuity of Care Document ---
:1935 Author Organization [facility] t Address [address] [place] [address] [address] [place] [address] Care Team Providers Name Role Phone [phone] Primary Care Physician Unavailable SYSTEM, NOT IN Attending Clinician Unavailable ALESSIO Attending Clinician Unavailable Chris CABRERA Attending Clinician Unavailable Aisha PARRISH Attending Clinician Unavailable Bobo BENTON Attending Clinician Unavailable ISAIAS Attending Clinician Unavailable Azalia PANDA Attending Clinician Unavailable GIOVANNY Attending Clinician Unavailable Marcio GAFFNEY Attending Clinician Unavailable Jaiver GAGNON Attending Clinician Unavailable Marcio GAFFNEY Admitting Clinician Unavailable Payers Payer Name Policy Type Policy Number Effective Date Expiration Date S luanne [facility] MEDICARE [id number] 2020 ADVANTAGE 00:00:00 MEDICARE PART A AND [id number] 1988 B 00:00:00 [facility] [id number] 2019 NON CONTRACTED 00:00:00 Problems This patient has no known problems. Allergies, Adverse Reactions, Alerts This patient has no known allergies or adverse reactions. Medications This patient has no known medications. Vital Signs Vital Name Observation Time Observation Value Comments Source WEIGHT 2021-01-24 09:13:08 52.8 kg WEIGHT 2021-01-21 09:54:00 52.5 kg WEIGHT 2020-12-24 08:53:46 52.3 kg WEIGHT 2020-12-24 08:26:00 52.3 kg WEIGHT 2020-11-26 08:56:00 51.3 kg WEIGHT 2020-10-25 11:52:09 51 kg WEIGHT 2020-09-27 10:27:00 49.3 kg HEIGHT 2020-08-06 09:06:00 152 cm WEIGHT 2020-08-06 09:06:00 49.4 kg Procedures This patient has no known procedures. Encounters Start End Encounter Admission Attending Care Care Encounter Source Date/Time Date/Time Type Type Clinicians Facility Department ID 2020-11-23 Outpatient SYSTEM, MDA MDA [id number] 10:39:51 ELEANOR broussard 2020-10-16 Outpatient SYSTEM, MDA MDA [id number] 13:32:25 ELEANOR broussard 2020-09-14 Outpatient SYSTEM, MDA MDA [id number] 16:02:01 ELEANOR broussard 2021-11-04 2021-11-04 Outpatient ALESSIO, MDA MDA [id number] 10:05:03 11:34:11 JAMEL broussard 2021-11-04 2021-11-04 Outpatient [facility], MDA MDA [id number] 08:24:14 08:59:04 JAMEL broussard 2021-11-04 2021-11-04 Outpatient CABRERA, MDA MDA [id number] 08:58:07 08:58:07 VIRAJ broussard 2021-11-04 2021-11-04 Outpatient CABRERA, MDA MDA [id number] 08:23:59 08:55:28 VIRAJ broussard 2021-10-27 2021-10-27 Outpatient [facility], MDA MDA [id number] 11:02:59 12:00:38 SIS broussard 2021-10-14 2021-10-14 Outpatient [facility], MDA MDA [id number] 14:49:57 16:27:21 JAMEL broussard 2021-10-14 2021-10-14 Outpatient CABRERA, MDA MDA [id number] 13:17:02 16:17:14 VIRAJ broussard 2021-10-14 2021-10-[address] [facility], MDA MDA [id number] 13:47:54 13:47:54 VIRAJ broussard 2021-10-14 2021-10-14 Outpatient ALESSIO, MDA MDA [id number] 13:16:19 13:46:48 JAMEL broussard 2021-10-11 2021-10-11 Outpatient [facility], MDA MDA [id number] 09:22:42 09:40:20 NOA broussard 2021-10-09 2021-10-09 Outpatient CARLOS CABRERA, MDA MDA [id number] MD 10:40:00 23:59:00 VIRAJ broussard 2021-10-04 2021-10-04 Outpatient CARLOS MCCALLUM, MDA MDA [id number] MD 10:05:41 23:59:00 JAMEL broussard 2021-10-04 2021-10-04 Outpatient CARLOS MCCALLUM, MDA MDA [id number] MD 09:55:12 10:04:00 JAMEL broussard 2021-09-14 2021-09-14 Outpatient CARLOS MCCALLUM, MDA MDA [id number] MD 15:07:25 16:18:41 JAMEL broussard 2021-09-14 2021-09-14 Outpatient CARLOS MCCALLUM, MDA MDA [id number] MD 13:15:36 14:14:16 JAMEL broussard 2021-09-14 2021-09-14 Outpatient CARLOS CABRERA, MDA MDA [id number] MD 14:14:00 14:14:00 VIRAJ broussard 2021-09-14 2021-09-14 Outpatient CARLOS CABRERA, MDA MDA [id number] MD 13:16:12 13:59:32 VIRAJ broussard 2021-08-24 2021-08-24 Outpatient EL MDA MDA [id number] MD 10:47:01 12:06:15 Kevin broussard 2021-08-24 2021-08-24 Outpatient CARLOS CABRERA, MDA MDA [id number] MD 08:58:45 10:22:06 VIRAJ broussard 2021-08-24 2021-08-24 Outpatient CARLOS CABRERA, MDA MDA [id number] MD 09:58:11 09:58:11 VIRAJ broussard 2021-08-24 2021-08-24 Outpatient CARLOS CABRERA, MDA MDA [id number] MD 08:59:28 09:54:34 VIRAJ rboussard 2021-08-15 2021-08-15 Outpatient CARLOS CABRERA, MDA MDA [id number] MD 13:24:24 13:24:24 VIRAJ broussard 2021-08-03 2021-08-03 Outpatient EL PARRISH, MDA MDA [id number] MD 14:08:00 23:59:00 SIS broussard 2021-08-03 2021-08-03 Outpatient EL PARRISH, MDA MDA [id number] MD 13:45:04 14:07:00 SIS broussard 2021-07-29 2021-07-29 Outpatient EL MDA MDA [id number] MD 12:54:18 15:07:01 Kevin broussard 2021-07-29 2021-07-29 Outpatient EL ALESSIO, MDA MDA [id number] MD 14:28:13 14:30:33 JAMEL Brown o bobo 2021-07-29 2021-07-29 Outpatient EL FRANCOIS, MDA MDA [id number] MD 11:16:19 11:58:14 SIS broussard 2021-07-29 2021-07-29 Outpatient EL DEBORAH, MDA MDA [id number] MD 10:09:28 10:09:28 VIRAJ broussard 2021-07-29 2021-07-29 Outpatient EL CABRERA, MDA MDA [id number] MD 09:27:49 09:58:38 VIRAJ broussard 2021-07-29 2021-07-29 Outpatient EL CABRERA, MDA MDA [id number] MD 09:26:59 09:57:59 VIRAJ broussard 2021-07-27 2021-07-27 Outpatient ALESSIO, MDA MDA [id number] MD 11:54:28 11:54:28 JAMEL broussard 2021-07-08 2021-07-08 Outpatient CABRERA, MDA MDA [id number] 10:17:51 12:04:48 VIRAJ broussard 2021-07-08 2021-07-08 Outpatient EL CABRERA, MDA MDA [id number] 09:42:34 10:36:30 VIRAJ broussard 2021-07-08 2021-07-08 Outpatient EL ALESSIO, MDA MDA [id number] MD 08:46:45 09:45:45 JAMEL Brown o bobo 2021-07-08 2021-07-08 Outpatient EL CABRERA, MDA MDA [id number] MD 08:48:34 09:32:05 VIRAJ broussard 2021-06-17 2021-06-17 Outpatient EL ALESSIO, MDA MDA [id number] MD 12:21:42 15:51:11 JAMEL broussard 2021-06-17 2021-06-17 Outpatient EL MDA MDA [id number] 13:33:28 15:23:40 Kevin o bobo 2021-06-17 2021-06-17 Outpatient EL CLEMENTE ESPARZA MDA MDA [id number] MD 12:05:29 12:21:24 Kevin o bobo 2021-06-17 2021-06-17 Outpatient EL MDA MDA [id number] MD 11:18:55 12:06:58 Kevin o bobo 2021-06-17 2021-06-17 Outpatient EL MDA MDA [id number] MD 11:19:30 12:06:20 Kevin o bobo 2021-05-13 2021-05-13 Outpatient EL MDA MDA [id number] MD 09:09:27 09:16:12 Kevin o bobo 2021-05-13 2021-05-13 Outpatient EL DEBORAH, MDA MDA [id number] 08:45:13 08:45:13 VIRAJ broussard 2021-05-13 2021-05-13 Outpatient EL ALESSIO, MDA MDA [id number] 08:15:25 08:34:28 JAMEL broussard 2021-05-13 2021-05-13 Outpatient EL DEBORAH, MDA MDA [id number] 08:16:16 08:34:14 VIRAJ broussard 2021-05-07 2021-05-07 Outpatient EL FRANCOIS, MDA MDA [id number] 06:03:29 06:03:29 SIS broussard 2021-04-28 2021-04-28 Outpatient EL FRANCOIS, MDA MDA [id number] 09:36:00 10:42:27 SIS broussard 2021-04-22 2021-04-22 Outpatient EL ALESSIO, MDA MDA [id number] 11:52:41 14:08:40 JAMEL broussard 2021-04-22 2021-04-22 Outpatient EL DEBORAH, MDA MDA [id number] 10:15:41 11:27:55 VIRAJ broussard 2021-04-22 2021-04-22 Outpatient EL DEBORAH, MDA MDA [id number] 10:57:00 10:57:00 VIRAJ broussard 2021-04-22 2021-04-22 Outpatient CARLOS MCCALLUM, MDA MDA [id number] MD 10:16:09 10:44:53 JAMEL broussard 2021-04-20 2021-04-20 Outpatient CARLOS MCCALLUM, MDA MDA [id number] MD 10:16:37 10:16:37 JAMEL broussard 2021-03-25 2021-03-25 Outpatient CARLOS MCCALLUM, MDA MDA [id number] MD 10:35:54 14:33:53 JAMEL broussard 2021-03-25 2021-03-25 Outpatient CARLOS MCCALLUM, MDA MDA [id number] MD 09:39:47 09:39:47 JAMEL broussard 2021-03-25 2021-03-25 Outpatient CARLOS CABRERA, MDA MDA [id number] 09:07:30 09:39:20 VIRAJ broussard 2021-03-25 2021-03-25 Outpatient CARLOS MCCALLUM, MDA MDA [id number] MD 09:06:46 09:39:19 JAMEL broussard 2021-03-04 2021-03-04 Outpatient CLEMENTE ESPARZA MDA MDA [id number] 09:34:02 11:12:35 Kevin broussard 2021-03-04 2021-03-04 Outpatient CARLOS CABRERA, MDA MDA [id number] 08:38:52 08:38:52 VIRAJ broussard 2021-03-04 2021-03-04 Outpatient CLEMENTE ESPARZA MDA MDA [id number] 08:06:11 08:38:00 Kevin broussard 2021-03-04 2021-03-04 Outpatient FARZAD, MDA MDA [id number] 08:06:28 08:31:11 ELI broussard 2021-02-25 2021-02-25 Outpatient FARZAD, MDA MDA [id number] 08:41:22 11:17:43 ELI broussard 2021-02-25 2021-02-25 Outpatient CLEMENTE ESPARZA MDA MDA [id number] 08:40:43 09:48:16 Kevin broussard 2021-02-25 2021-02-25 Outpatient EL CLEMENTE ESPARZA MDA MDA [id number] 00:00:00 00:00:00 Kevin broussard 2021-02-18 2021-02-18 Outpatient EL ALESSIO, MDA MDA [id number] 08:37:26 12:33:50 JAMEL broussard 2021-02-18 2021-02-18 Outpatient EL CLEMENTE ESPARZA MDA MDA [id number] 08:04:07 08:25:37 Kevin broussard 2021-02-18 2021-02-18 Outpatient EL DEBORAH, MDA MDA [id number] 08:03:24 08:24:33 VIRAJ broussard 2021-01-28 2021-01-28 Outpatient EL PARRISH, MDA MDA [id number] MD 15:52:05 23:59:00 SIS broussard 2021-01-28 2021-01-28 Outpatient EL PARRISH, MDA MDA [id number] MD 14:52:11 15:51:00 SIS broussard 2021-01-28 2021-01-28 Outpatient EL GIOVANNY, MDA MDA [id number] MD 14:51:44 14:51:44 VALERIE broussard 2021-01-28 2021-01-28 Outpatient EL PARRISH, MDA MDA [id number] MD 13:40:16 14:50:00 SIS broussard 2021-01-24 2021-01-24 Outpatient EL PARRISH, MDA MDA [id number] 09:05:56 10:10:49 SIS broussard 2021-01-24 2021-01-24 Outpatient EL SLSL SLSL [id number] 00:00:00 00:00:00 2021-01-21 2021-01-21 Outpatient EL DEBORAH, MDA MDA [id number] 09:29:25 13:08:21 VIRAJ broussard 2021-01-21 2021-01-21 Outpatient EL DEBORAH, MDA MDA [id number] 08:20:06 08:20:06 VIRAJ broussard 2021-01-19 2021-01-19 Outpatient EL DEBORAH, MDA MDA [id number] 12:46:37 23:59:00 VIRAJ broussard 2021-01-19 2021-01-19 Outpatient FARZAD, MDA MDA [id number] 12:50:26 12:50:26 ELI broussard 2020-12-24 2020-12-24 Outpatient FARZAD, MDA MDA [id number] 09:23:26 15:09:37 ELI broussard 2020-12-24 2020-12-24 Outpatient DEBORAH, MDA MDA [id number] 08:47:18 09:34:10 VIRAJ broussard 2020-12-24 2020-12-24 Outpatient FARZAD, MDA MDA [id number] 08:19:49 08:50:29 ELI broussard 2020-12-24 2020-12-24 Outpatient FARZAD, MDA MDA [id number] 08:20:30 08:42:06 ELI broussard 2020-11-30 2020-11-30 Outpatient PARRISH, MDA MDA [id number] 07:41:33 23:59:00 SIS broussard 2020-11-26 2020-11-26 Outpatient DEBORAH, MDA MDA [id number] 10:04:21 14:59:16 VIRAJ broussard 2020-11-26 2020-11-26 Outpatient ALESSIO, MDA MDA [id number] 09:54:21 10:00:10 JAMEL broussard 2020-11-26 2020-11-26 Outpatient DEBORAH, MDA MDA [id number] 08:20:44 09:45:53 VIRAJ broussard 2020-11-26 2020-11-26 Outpatient DEBORAH, MDA MDA [id number] 08:41:00 09:22:56 VIRAJ broussard 2020-11-26 2020-11-26 Outpatient DEBORAH, MDA MDA [id number] 09:21:39 09:21:39 VIRAJ broussard 2020-11-08 2020-11-08 Outpatient DEBORAH, MDA MDA [id number] 11:18:51 13:22:46 VIRAJ broussard 2020-10-29 2020-10-29 Outpatient EL FRANCOIS, MDA MDA [id number] MD 16:14:57 23:59:00 SIS broussard 2020-10-29 2020-10-29 Outpatient CARLOS PARRISH, MDA MDA [id number] MD 16:00:00 16:13:00 SIS broussard 2020-10-29 2020-10-29 Outpatient CARLOS MCCALLUM, MDA MDA [id number] MD 10:59:42 15:10:06 JAMEL rBown o bobo 2020-10-29 2020-10-29 Outpatient CARLOS CABRERA, MDA MDA [id number] MD 10:07:43 10:07:43 VIRAJ broussard 2020-10-29 2020-10-29 Outpatient CARLOS MCCALLUM, MDA MDA [id number] MD 09:14:51 10:07:05 JAMEL Brown o bobo 2020-10-29 2020-10-29 Outpatient CARLOS CABRERA, MDA MDA [id number] MD 00:00:00 00:00:00 VIRAJ broussard 2020-10-27 2020-10-27 Outpatient CARLOS MCCALLUM, MDA MDA [id number] MD 16:13:39 23:59:00 JAMEL Brown o bobo 2020-10-27 2020-10-27 Outpatient CARLOS PARRISH, MDA MDA [id number] 13:02:09 13:02:09 SIS broussard 2020-10-25 2020-10-25 Outpatient EL FRANCOIS, MDA MDA [id number] MD 11:40:40 16:03:29 SIS broussard 2020-10-18 2020-10-18 Outpatient CARLOS CABRERA, MDA MDA [id number] MD 13:05:00 23:59:00 VIRAJ broussard 2020-10-11 2020-10-11 Outpatient EL FRANCOIS, MDA MDA [id number] MD 08:58:24 08:58:24 SIS broussard 2020-10-01 2020-10-01 Outpatient CARLOS MCCALLUM, MDA MDA [id number] 09:12:07 13:48:15 JAEML Brown o bobo 2020-10-01 2020-10-01 Outpatient DEBORAH, MDA MDA [id number] 08:03:15 08:03:15 VIRAJ broussard 2020-09-30 2020-09-30 Outpatient CARLOS GAFFNEY, MDA Surgical [id number] 06:48:00 11:50:00 JARETT broussard 2020-09-30 2020-09-30 Outpatient EL MDA MDA [id number] 10:30:43 10:30:43 Kevin broussard 2020-09-30 2020-09-30 Outpatient EL MDA MDA [id number] 08:50:17 08:50:17 Kevin broussard 2020-09-30 2020-09-30 Outpatient GULSHAN, MDA MDA [id number] MD 07:42:26 07:42:26 JARETT broussard 2020-09-30 2020-09-30 Outpatient KALIN, MDA MDA [id number] 07:01:16 07:01:16 GUERITA broussard 2020-09-30 2020-09-30 Outpatient ALESSIO, MDA MDA [id number] 06:09:04 06:47:00 JAMEL broussard 2020-09-30 2020-09-30 Outpatient [facility], MDA MDA [id number] 06:04:30 06:08:00 GUERITA broussard 2020-09-28 2020-09-28 Outpatient [facility], MDA MDA [id number] 08:06:09 08:06:09 GUERITA broussard 2020-09-27 2020-09-27 Outpatient ALESSIO, MDA MDA [id number] 09:46:58 23:59:00 JAMEL broussard 2020-09-27 2020-09-27 Outpatient [facility], MDA MDA [id number] 12:09:59 14:13:50 GUERITA broussard 2020-09-27 2020-09-27 Outpatient FRANCOIS, MDA MDA [id number] 14:03:54 14:03:54 SIS broussard 2020-09-27 2020-09-27 Outpatient [facility], MDA MDA [id number] 11:35:09 11:35:09 GUERITA broussard 2020-09-27 2020-09-27 Outpatient [facility], MDA MDA [id number] 09:21:58 09:32:11 GUERITA Kevinjuan broussard 2020-09-27 2020-09-27 Outpatient [facility], MDA MDA [id number] 07:44:10 07:44:10 GUERITA broussard 2020-09-03 2020-09-[address] [facility], MDA MDA [id number] MD 10:21:20 15:43:11 VIRAJ broussard 2020-09-03 2020-09-[address] [facility], MDA MDA [id number] MD 09:14:54 09:14:54 VIRAJ broussard 2020-09-03 2020-09-[address] [facility], MDA MDA [id number] 08:46:38 09:01:31 VIRAJ broussard 2020-08-06 2020-08-[address] [facility], MDA MDA [id number] 08:31:12 17:46:16 VIRAJ broussard 2020-08-06 2020-08-[address] [facility], MDA MDA [id number] 08:06:29 08:31:14 VIRAJ broussard 2020-08-05 2020-08-05 Outpatient ALESSIO, MDA MDA [id number] MD 10:16:11 10:16:11 JAMEL Brown o bobo 2020-07-30 2020-07-30 Outpatient [facility], MDA MDA [id number] 12:34:23 12:57:45 JAMEL Brown o bobo 2020-07-30 2020-07-[address] [facility], MDA MDA [id number] 09:14:43 12:32:08 VIRAJ broussard 2020-07-30 2020-07-[address] [facility], MDA MDA [id number] 11:09:50 11:09:50 VIRAJ broussard 2020-07-30 2020-07-[address] [facility], MDA MDA [id number] MD 09:18:53 09:18:53 VIRAJ broussard 2020-07-27 2020-07-27 Outpatient EL CABRERA, MDA MDA [id number] 12:53:52 12:53:52 VIRAJ broussard Results Test Description Test Time Test Comments Results Result Sourc e Comments RAD, SHOULDER, 2021-01-24 Reason for COMPLETE (MIN 2 11:08:00 Exam:->M54.9,G8 VIEWS), RIGHT 9.29 [facility] 1935 Sex: F *FINAL REPORT Right shoulder History provided: M 54.9 No fracture or dislocation. Glenohumeral joint space is narrowed with minimal spurring, consistent with degenerative change. Signed: Elias Jacinto MDReport Verified Date/Time: 01/24/2021 11:08:40 Reading Location: [facility] Diagnostic Imaging Reading Room - [facility] 1.310.12
[2021-12-29] MEDS ORDERED: LIDOCAINE 1% W/EPI 1:100,000 MDV 20 ML VIAL ONE (21:01)
[2021-12-29] MEDS ORDERED: BACI/NEOMYCIN/POLY OINT 15GM TOP ONE ×2 (21:01→21:02)
[2021-12-29] MEDS ORDERED: CEFAZOLIN SODIUM 1 GM/VIAL ONE (21:01)
[2021-12-29] MEDS ORDERED: TETANUS & DIPHTHERIA TOX,ADULT 0.5 ML VIAL ONE (21:02)
[2021-12-29] MEDS ORDERED: NA CHLORIDE 0.9% 100 ML IV ONE (21:02)
--- NOTE | 2021-12-29 21:35 | RAD REPORT ---
EXAM DESCRIPTION: RAD - Elbow Left 3 View - 12/29/2021 9:20 pm CLINICAL HISTORY: Left elbow pain status post trauma FINDINGS: A joint effusion is present. On the lateral view there is cortical regularity involving the radial head likely a fracture. No dislocation
[2021-12-29 21:51] LABS: Absolute Lymphocytes (CBC) 1.2 K/uL (0.7-4.9); Hematocrit 34.1 % (36.0-45.0); MPV 8.4 fL (7.6-11.3); RBC Red Blood Cell Count 3.99 M/uL (3.86-4.86)
[2021-12-29 21:59] LABS: Protime INR 1.22
--- NOTE | 2021-12-29 21:59 | RAD REPORT ---
EXAM DESCRIPTION: RAD - Hip Left 2 View - 12/29/2021 9:19 pm CLINICAL HISTORY: Left hip pain status post injury FINDINGS: Cortical regularity left acetabulum probably an acute minimally displaced fracture Nondisplaced left inferior pubic ramus fracture indeterminate age Osteoporosis No dislocation
--- NOTE | 2021-12-29 22:00 | RAD REPORT ---
EXAM DESCRIPTION: RAD - Pelvis - 12/29/2021 9:19 pm CLINICAL HISTORY: Pelvic pain status post injury FINDINGS: Cortical regularity left acetabulum probably an acute minimally displaced fracture Nondisplaced left inferior pubic ramus fracture indeterminate age Osteoporosis No dislocation
--- NOTE | 2021-12-29 22:01 | RAD REPORT ---
EXAM DESCRIPTION: RAD - Femur Left - 12/29/2021 9:20 pm CLINICAL HISTORY: Left leg pain FINDINGS: The bones are osteoporotic. No femoral fractures seen.
[2021-12-29 22:11] LABS: ALT/SGPT 20 U/L (12-78); AST/SGOT 26 U/L (15-37); Albumin 3.3 g/dL (3.4-5.0); Alkaline Phosphatase 120 U/L (45-117); BUN Blood Urea Nitrogen 10 mg/dL (7-18); Bicarbonate 26 mmol/L (21-32); Bilirubin Total 0.2 mg/dL (0.2-1.0); Glomerular Filtration Rate 83 ml/min (=/>90); Glucose Level 138 mg/dL (74-106); Potassium 4.4 mmol/L (3.5-5.1); Protein, Total 6.5 g/dL (6.4-8.2); Sodium Level 136 mmol/L (136-145)
[2021-12-29 22:29] LABS: Bilirubin Direct < 0.1 mg/dL (0-0.2)
[2021-12-29 22:50] LABS: Urine Blood Negative (Negative); Urine Glucose Negative (Negative); Urine Protein Negative (Negative); Urine pH 5.5 (5.0-7.0)
--- NOTE | 2021-12-29 23:24 | RAD REPORT ---
EXAM DESCRIPTION: CT - Head C Spine Cap W Con - 12/29/2021 11:05 pm CLINICAL HISTORY: Trauma, head and neck injury. Chest, abdomen and pelvis pain. fall COMPARISON: Femur Left dated 12/29/2021; Pelvis dated 12/29/2021; Hip Left 2 View dated 12/29/2021; Elb ow Left 3 View dated 12/29/2021; MRI PELVIS W O CONTRAST dated 06/20/2010 TECHNIQUE: CT head without contrast. CT cervical spine without contrast with coronal and sagittal reformatted images. CT chest, abdomen and pelvis with coronal and sagittal reformatted images of the spine. All CT scans are performed using dose optimization technique as appropriate and may include automated exposure control or mA/KV adjustment according to patient size. FINDINGS: CT HEAD WITHOUT CONTRAST: No intracranial hemorrhage, hydrocephalus or extra-axial fluid collection. No acute large vascular te rritory infarct. The paranasal sinuses and mastoids are clear. The calvarium is intact. Scalp hematoma overlying the left parietal calvarium. CT CERVICAL SPINE WITHOUT CONTRAST: No fracture or subluxation. Multilevel cervical spondylosis. Varying degrees of neural foraminal narr owing noted. The prevertebral soft tissues are normal in thickness. CT CHEST, ABDOMEN, PELVIS: Thorax: Chest Wall: No abnormal mass right IJ approach Port-A-Cath. Lungs: No acute abnormality. Pleura: No effusions or pneumothorax. Marilin/Mediastinum: No lymphadenopathy. Moderate to large hiatal hernia. Aorta/Pulmonary Arteries: Unremarkable Heart: Normal size. Multi-vessel coronary artery disease. Aortic valve calcifications. Coronary arter y calcifications. Abdomen/Pelvis: Liver: No acute abnormality or suspicious lesions. Biliary: No biliary ductal dilatation. Stomach: No significant focal abnormality. Duodenum: No significant focal abnormality. Pancreas: No significant abnormality. Spleen: No significant abnormality. Adrenal: No suspicious lesions. Kidney/ureter: No hydronephrosis. No renal calculi. Too small to characterize and/or benign appearing renal lesions are noted. Retroperitoneum: No retroperitoneal adenopathy. Vascular: No aneurysm. Atherosclerosis. 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 Peritoneum: No ascites or free air. Bladder: Barney catheter within the bladder. Trace gas within the bladder presumably related to instru mentation. . Reproductive: Cystic and solid midline mass posterior to the bladder. This measures approximately 6.7 cm . Is contiguous with the vaginal cuff. The patient has had a prior hysterectomy. Bones: Remote bilateral rib fractures. Some motion artifact could obscure a nondisplaced or minimally displaced rib fracture. Remote left obturator ring fracture. T11-T12 kyphoplasties. Slight endplate deformity and buckling at L3 concerning for acute compression fracture. Remote appearing thoracic com pression fractures are noted. Other: n/a IMPRESSION: 1. L3 compression fracture which is most likely acute with less than 20% loss of height. Other thoracic and lumbar compression fractures are most likely chronic. 2. Cystic and solid mass in the pelvis. This is suspicious for a neoplasm, possibly ovarian or relate d to remnant ovarian tissue the patient has had a prior oophorectomy. Suggest outpatient gynecology ramon rodgers.
--- NOTE | 2021-12-30 00:15 | EDPHYS ---
Physician Documentation [facility] Name: Neris Lloyd Age: 86 yrs Sex: Female : 1935 Arrival Date: 12/29/2021 Time: 20:13 Bed 5 Private MD: ED Physician Raymond Kirkland HPI: 12/29 20:43 This 86 yrs old Female presents to ER via Ambulatory with complaints of Fall maximus Injury. 20:43 Details of fall: The patient fell from an upright position, while walking. Onset: The maximus symptoms/episode began/occurred just prior to arrival. Associated injuries: The patient sustained injury to the head, laceration, pain, swelling, decreased range of motion, laceration, 2.54 cm(s). Severity of symptoms: At their worst the symptoms were mild, in the emergency department the symptoms are unchanged. The patient has experienced similar episodes in the past, several times. Historical: - Allergies: 20:46 Bactrim; kd3 - Home Meds: 20:46 atorvastatin 20 mg Oral tab 1 tab once daily [Active]; baclofen 10 mg Oral tab 1 tab 4 kd3 times per day [Active]; clonazepam 1 mg Oral tab 1 tab 3 times per day [Active]; gabapentin 300 mg Oral cap nightly [Active]; losartan 50 mg Oral tab 1 tab once daily [Active]; metoprolol succinate 25 mg Oral Tb24 1 tab once daily [Active]; ropinirole 2 mg Oral tab 1 tab nightly [Active]; terbinafine HCl 250 mg Oral tab 1 tab once daily [Active]; - PMHx: 20:46 Anxiety; Atrial Fib; Back pain; Hypertension; kd3 - Immunization history: Last tetanus immunization: unknown. - Social history:: Smoking status: unknown. ROS: 20:44 Constitutional: Negative for fever, chills, and weight loss, Eyes: Negative for injury, maximus pain, redness, and discharge, ENT: Negative for injury, pain, and discharge, Neck: Negative for injury, pain, and swelling, Cardiovascular: Negative for chest pain, palpitations, and edema, Respiratory: Negative for shortness of breath, cough, wheezing, and pleuritic chest pain, Abdomen/GI: Negative for abdominal pain, nausea, vomiting, diarrhea, and constipation, : Negative for injury, bleeding, discharge, and swelling, Skin: Negative for injury, rash, and discoloration, Neuro: Negative for headache, weakness, numbness, tingling, and seizure, Psych: Negative for depression, anxiety, suicide ideation, homicidal ideation, and hallucinations, Allergy/Immunology: Negative for hives, rash, and allergies, Endocrine: Negative for neck swelling, polydipsia, polyuria, polyphagia, and marked weight changes, Hematologic/Lymphatic: Negative for swollen nodes, abnormal bleeding, and unusual bruising. 20:44 Back: Positive for pain at rest, pain with movement. 20:44 MS/extremity: Positive for laceration, pain, swelling, tenderness, of the left elbow. Exam: 20:44 Constitutional: This is a well developed, well nourished patient who is awake, alert, maximus and in no acute distress. Eyes: Pupils equal round and reactive to light, extra-ocular motions intact. Lids and lashes normal. Conjunctiva and sclera are non-icteric and not injected. Cornea within normal limits. Periorbital areas with no swelling, redness, or edema. ENT: Nares patent. No nasal discharge, no septal abnormalities noted. Tympanic membranes are normal and external auditory canals are clear. Oropharynx with no redness, swelling, or masses, exudates, or evidence of obstruction, uvula midline. Mucous membranes moist. Neck: Trachea midline, no thyromegaly or masses palpated, and no cervical lymphadenopathy. Supple, full range of motion without nuchal rigidity, or vertebral point tenderness. No Meningismus. Chest/axilla: Normal chest wall appearance and motion. Nontender with no deformity. No lesions are appreciated. Cardiovascular: Regular rate and rhythm with a normal S1 and S2. No gallops, murmurs, or rubs. Normal PMI, no JVD. No pulse deficits. Respiratory: Lungs have equal breath sounds bilaterally, clear to auscultation and percussion. No rales, rhonchi or wheezes noted. No increased work of breathing, no retractions or nasal flaring. Abdomen/GI: Soft, non-tender, with normal bowel sounds. No distension or tympany. No guarding or rebound. No evidence of tenderness throughout. Back: No spinal tenderness. No costovertebral tenderness. Full range of motion. Female : Normal external genitalia. Neuro: Awake and alert, GCS 15, oriented to person, place, time, and situation. Cranial nerves II-XII grossly intact. Motor strength 5/5 in all extremities. Sensory grossly intact. Cerebellar exam normal. Normal gait. Psych: Awake, alert, with orientation to person, place and time. Behavior, mood, and affect are within normal limits. 20:44 Head/face: Noted is hematoma, that is moderate, of the left side of the back of head, a laceration(s). 20:44 Musculoskeletal/extremity: Extremities: noted in the left elbow: decreased ROM, laceration, pain, ROM: full active range of motion, full passive range of motion, Circulation is intact in all extremities. Sensation intact. Vital Signs: 21:19 BP 146 / 80; Pulse 72; Resp 19; Temp 98.2(O); Pulse Ox 98% on R/A; Weight 51.71 kg; kd3 Height 5 ft. (152.40 cm); 22:38 BP 144 / 105; Pulse 72; Resp 18 S; Pulse Ox 100% on R/A; as6 12/30 00:15 BP 155 / 85; Pulse 73; Resp 18 S; Pulse Ox 100% on R/A; as6 12/29 21:19 Body Mass Index 22.26 (51.71 kg, 152.40 cm) kd3 José Miguel Coma Score: 12/29 20:47 Eye Response: spontaneous(4). Verbal Response: oriented(5). Motor Response: obeys maximus commands(6). Total: 15. 20:48 Eye Response: spontaneous(4). Verbal Response: oriented(5). Motor Response: obeys kd3 commands(6). Total: 15. Trauma Score (Adult): 20:48 Eye Response: spontaneous(1); Verbal Response: oriented(1); Motor Response: obeys kd3 commands(2); Systolic BP: > 89 mm Hg(4); Respiratory Rate: 10 to 29 per min(4); [place] Score: 15; Trauma Score: 12 Laceration: 21:47 Wound Repair of 2.5cm ( 1.0in ) subcutaneous laceration to left elbow. Irregularly maximus shaped.. Distal neuro/vascular/tendon intact. Anesthesia: Local anesthetic administered with 8 mls of 1% lidocaine w/ Epi. Wound prep: Moderate cleansing by me. Skin closed with 3 4-0 Prolene using vertical mattress sutures and sterile technique. Dressed with Neosporin, pressure dressing. Patient tolerated well. MDM: 20:31 Patient medically screened. [facility] 20:47 Differential diagnosis: Contusion of Hematoma on Laceration of Intracranial bleed- [facility] Concussion cerebral contusion. Differential diagnosis: closed head injury, contusion, fracture, laceration, multiple trauma, sprain, strain. Data reviewed: vital signs, nurses notes, lab test result(s), EKG, radiologic studies, CT scan, plain films. 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 Test interpretation: by ED physician or midlevel provider: ECG, plain radiologic studies. Counseling: I had a detailed discussion with the patient and/or guardian regarding: the historical points, exam findings, and any diagnostic results supporting the discharge/admit diagnosis, lab results. 12/29 20:41 Order name: Basic Metabolic Panel; Complete Time: 22:35 [facility] 12/29 20:41 Order name: CBC with Diff; Complete Time: 22:35 [facility] 12/29 20:41 Order name: Type And Screen; Complete Time: 23:50 [facility] 12/29 20:41 Order name: PT-INR; Complete Time: 22:35 [facility] 12/29 20:41 Order name: LFT's; Complete Time: 22:35 [facility] 12/29 22:50 Order name: Urine Dipstick-Ancillary; Complete Time: 23:50 EDME 12/29 20:41 Order name: CT Traumagram (Head C Spine CAP W Con); Complete Time: 00:12 [facility] 12/29 20:41 Order name: XRAY Pelvis; Complete Time: 22:35 [facility] 12/29 20:42 Order name: Hip Left 2 View XRAY; Complete Time: 22:35 [facility] 12/29 20:42 Order name: Femur Left XRAY; Complete Time: 22:35 [facility] 12/29 20:44 Order name: Elbow Left 3 View XRAY; Complete Time: 21:53 [facility] 12/30 00:07 Order name: COVID-19 SARS RT PCR (Document "Date of Onset" if Symptomatic); Complete vc1 Time: 05:12/30 03:54 Order name: CBC with Automated Diff; Complete Time: 05:09 EDME 12/30 03:58 Order name: Basic Metabolic Panel; Complete Time: 05:09 EDMS 12/29 20:41 Order name: Labs collected and sent; Complete Time: 21:43 [facility] 12/29 20:41 Order name: Dressing - Wound; Complete Time: 22:05 [facility] 12/29 20:41 Order name: Gloves, Sterile; Complete Time: 21:40 maximus 12/29 20:41 Order name: Prolene, Sutures; Complete Time: 21:40 [facility] 12/29 20:41 Order name: Setup Suture Tray; Complete Time: 21:40 [facility] 12/29 20:43 Order name: Urine Dipstick-Ancillary (obtain specimen); Complete Time: 22:46 [facility] 12/29 22:36 Order name: Barney; Complete Time: 22:45 maximus Administered Medications: 21:40 Drug: Lidocaine-Epinephrine -1%: (1:100,000) 10 ml {Note: administered by provider .} as6 Volume: 20 ml; Route: Infiltration; 23:42 Follow up: Response: No adverse reaction as6 21:42 Drug: Ancef (cefazolin) 1 grams Route: IVPB; Site: Port-a-cath; as6 23:42 Follow up: Response: No adverse reaction; IV Status: Completed infusion; IV Intake: as6 100ml 22:03 Drug: Neosporin (rbthfxvj-scvazamybc-sjlegipck) Ointment 1 application Route: Topical; kd3 Site: affected area; 23:42 Follow up: Response: No adverse reaction as6 22:04 Drug: Tetanus-Diphtheria Toxoid Adult 0.5 ml {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 Exp: kd3 10/29/2023. Lot #: [id number]. } Route: IM; Site: right deltoid; 23:42 Follow up: Response: No adverse reaction as6 12/30 01:15 Drug: traMADol 50 mg Route: PO; kd3 06:49 Follow up: Response: No adverse reaction; RASS: Alert and Calm (0) as6 Disposition Summary: 12/30/21 00:14 Hospitalization Ordered Hospitalization Status: Observation maximus Provider: Remi Bryant maximus Condition: Stable maximus Problem: new maximus Symptoms: have improved maximus Bed/Room Type: Standard maximus Location: Telemetry/MedSurg (observation)(12/30/21 13:56) Room Assignment: 214(12/30/21 13:56) eb Diagnosis - Fall on same level, unspecified maximus - Contusion of right back wall of thorax maximus - Contusion of thorax maximus - Fracture of other parts of pelvis - superior and inferior pubic ramus fx maximus - Other abdominal pain - cystic and solid mass in the pelvis maximus - Fracture of lumbar vertebra - L3 COMPRESSION FRACTURE maximus - Laceration without foreign body of left elbow, initial encounter - RADIAL HEAD maximus FRACTURE Forms: - Medication Reconciliation Form maximus - SBAR form maximus Signatures: Dispatcher [employer] EDMS Raymond Kirkland MD MD cha Attema, Lee, COLLAR TURNER-C COLLAR TURNER-Cla1 Tonya Thurman, RN RN Kenia Jiang Ashby, RN RN as6 Shantelle Ruiz RN RN kd3 Corrections: (The following items were deleted from the chart) 00: 00:14 Telemetry/MedSurg (observation) maximus cg 00: 00:14 maximus cg : 00:[address] [facility] ER HOLD cg eb : 00:23 ERHOLD- cg eb
--- NOTE | 2021-12-30 00:15 | ER ---
Nurse's Notes [facility] Name: Neris Lloyd Age: 86 yrs Sex: Female : 1935 Arrival Date: 12/29/2021 Time: 20:13 Bed 5 Private MD: Diagnosis: Fall on same level, unspecified;Contusion of right back wall of thorax;Contusion of thorax;Fracture of other parts of pelvis-superior and inferior pubic ramus fx;Other abdominal pain-cystic and solid mass in the pelvis;Fracture of lumbar vertebra-L3 COMPRESSION FRACTURE;Laceration without foreign body of left elbow, initial encounter-RADIAL HEAD FRACTURE Presentation: 12/29 20:32 Chief complaint: Patient states: fell backwards from standing position. injuries kd3 include a "knot" on the back of the head. scraped elbow, hip pain. Care prior to arrival: None. Mechanism of Injury: Fall. Trauma event details: Injury occurred in the [facility], Injury occurred: at home. Injury occurred: December 29, 2021. 20:32 Acuity: JORGE 3 kd3 20:32 Method Of Arrival: Ambulatory kd3 20:45 Coronavirus screen: Vaccine status: Patient reports receiving the 2nd dose of the covid kd3 vaccine. Ebola Screen: No symptoms or risks identified at this time. Initial Sepsis Screen: Does the patient meet any 2 criteria? No. Patient's initial sepsis screen is negative. Does the patient have a suspected source of infection? No. Patient's initial sepsis screen is negative. Risk Assessment: Do you want to hurt yourself or someone else? Patient reports no desire to harm self or others. Onset of symptoms was December 29, 2021. Trauma Activation: Physician: ED Physician; Name: beronica; Notified At: ; Arrived At: Physician: General Surgeon; Name: ; Notified At: ; Arrived At: Physician: Radiology; Name: ; Notified At: ; Arrived At: Physician: Respiratory; Name: ; Notified At: ; Arrived At: Physician: Lab; Name: ; Notified At: ; Arrived At: Historical: - Allergies: 20:46 Bactrim; kd3 - Home Meds: 20:46 atorvastatin 20 mg Oral tab 1 tab once daily [Active]; baclofen 10 mg Oral tab 1 tab 4 kd3 times per day [Active]; clonazepam 1 mg Oral tab 1 tab 3 times per day [Active]; gabapentin 300 mg Oral cap nightly [Active]; losartan 50 mg Oral tab 1 tab once daily [Active]; metoprolol succinate 25 mg Oral Tb24 1 tab once daily [Active]; ropinirole 2 mg Oral tab 1 tab nightly [Active]; terbinafine HCl 250 mg Oral tab 1 tab once daily [Active]; - PMHx: 20:46 Anxiety; Atrial Fib; Back pain; Hypertension; kd3 - Immunization history: Last tetanus immunization: unknown. - Social history:: Smoking status: unknown. Screenin:47 Abuse screen: Denies threats or abuse. Denies injuries from another. Nutritional kd3 screening: No deficits noted. Tuberculosis screening: No symptoms or risk factors identified. Fall Risk None identified. Primary Survey: 20:32 NO uncontrolled hemorrhage observed. Breathing/Chest: Spontaneous respiratory effort, kd3 equal unlabored respirations, breath sounds clear bilaterally, regular pattern, symmetrical chest rise and fall. Circulation: No external hemorrhage present. Regular and strong central pulse, skin warm/dry/normal color. Disability Pupils are equal, round, reactive to light and accommodation. Exposure/Environment: All clothing and personal items were removed. Forensic evidence collection is not deemed to be indicated at this time. Items placed in patient belonging bag. There is no evidence of uncontrolled external bleeding. Obvious injury(ies) are noted at this time: laceration to the back of the head. left elbow laceration, left hip pain. A warming method has been applied: A warm blanket has been provided to the patient. 23:09 A: The client is awake and alert. The airway is patent. Reassessment Alertness and kd3 Airway: Awake and alert. The airway is patent. Breathing: Spontaneous respiratory effort, equal unlabored respirations, breath sounds clear bilaterally, regular pattern with symmetrical chest rise and fall. Reassessment Alertness and Airway: Awake and alert. The airway is patent. Breathing: Spontaneous respiratory effort, equal unlabored respirations, breath sounds clear bilaterally, regular pattern with symmetrical chest rise and fall. Circulation: No external hemorrhage noted. Regular and strong central pulse, skin warm/dry/normal color. Disability: Pupils Pupils are equal, round, reactive to light and accomodation. Alert. Secondary Survey: 20:32 HEENT: Head Other laceration to the back of the head. Face No injury/deformity Eyes: No kd3 injury or deformity noted. Ears: clear Nose: clear Throat: No injury or deformity noted. Gastrointestinal: No deficits noted. : No deficits noted. Musculoskeletal: No deficits noted. Injury Description: Abrasion Laceration sustained to left parietal area. Assessment: 20:32 General: Appears in no apparent distress. Behavior is calm, cooperative. Pain: kd3 Complains of pain in back of head, left elbow. left hip. Neuro: Oriented to person, place, time, situation. EENT:. EENT: No deficits noted. Cardiovascular: Patient's skin is warm and dry. Respiratory: Airway is patent Trachea midline Respiratory effort is even, unlabored, Respiratory pattern is regular, symmetrical. Vital Signs: 21:19 BP 146 / 80; Pulse 72; Resp 19; Temp 98.2(O); Pulse Ox 98% on R/A; Weight 51.71 kg; kd3 Height 5 ft. (152.40 cm); 22:38 BP 144 / 105; Pulse 72; Resp 18 S; Pulse Ox 100% on R/A; as6 12/30 00:15 BP 155 / 85; Pulse 73; Resp 18 S; Pulse Ox 100% on R/A; as6 12/29 21:19 Body Mass Index 22.26 (51.71 kg, 152.40 cm) kd3 Leonore Coma Score: 12/29 20:47 Eye Response: spontaneous(4). Verbal Response: oriented(5). Motor Response: obeys maximus commands(6). Total: 15. 20:48 Eye Response: spontaneous(4). Verbal Response: oriented(5). Motor Response: obeys kd3 commands(6). Total: 15. Trauma Score (Adult): 20:48 Eye Response: spontaneous(1); Verbal Response: oriented(1); Motor Response: obeys kd3 commands(2); Systolic BP: > 89 mm Hg(4); Respiratory Rate: 10 to 29 per min(4); Leonore Score: 15; Trauma Score: 12 ED Course: 20:13 Patient arrived in ED. jj6 20:22 Shantelle Ruiz, RUBY is Primary Nurse. kd3 20:31 Raymond Kirkland MD is Attending Physician. maximus 20:40 Triage completed. kd3 20:47 Patient has correct armband on for positive identification. kd3 20:47 Patient maintains SpO2 saturation greater than 95% on room air. kd3 21:21 XRAY Pelvis In Process Unspecified. EDMS 21:21 Hip Left 2 View XRAY In Process Unspecified. EDMS 21:21 Femur Left XRAY In Process Unspecified. EDMS 21:22 Elbow Left 3 View XRAY In Process Unspecified. EDMS 21:35 Accessed Medi-Port. using 20G Nexia IV catheter ,sterile technique, per hospital as6 protocol. Clean \\T\\ dry. Dressing intact. Good blood return. Flushes easily. 22:45 Barney cath inserted, using sterile technique, 16 Fr., by wv, balloon inflated, to ld1 gravity drainage, urine specimen collected. Patient tolerated well. 23:07 CT Traumagram (Head C Spine CAP W Con) In Process Unspecified. EDMS 23:08 Assist provider with laceration repair on left elbow. kd3 23:09 Thermoregulation: warm blanket given to patient. kd3 12/30 00:03 Remi Bryant MD is Hospitalizing Provider. maximus 06:47 Arm band placed on. as6 06:47 Patient admitted, IV remains in place. as6 07:07 Primary Nurse role handed off by Shantelle Ruiz RN eb 07:28 Hannah Guerrero, RN is Primary Nurse. ll1 Administered Medications: 12/29 21:40 Drug: Lidocaine-Epinephrine -1%: (1:100,000) 10 ml {Note: administered by provider .} as6 Volume: 20 ml; Route: Infiltration; 23:42 Follow up: Response: No adverse reaction as6 21:42 Drug: Ancef (cefazolin) 1 grams Route: IVPB; Site: Port-a-cath; as6 23:42 Follow up: Response: No adverse reaction; IV Status: Completed infusion; IV Intake: as6 100ml 22:03 Drug: Neosporin (jqyelfco-jdfryvimax-fefbcgqbk) Ointment 1 application Route: Topical; kd3 Site: affected area; 23:42 Follow up: Response: No adverse reaction as6 22:04 Drug: Tetanus-Diphtheria Toxoid Adult 0.5 ml {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 Exp: kd3 10/29/2023. Lot #: [id number]. } Route: IM; Site: right deltoid; 23:42 Follow up: Response: No adverse reaction as6 12/30 01:15 Drug: traMADol 50 mg Route: PO; kd3 06:49 Follow up: Response: No adverse reaction; RASS: Alert and Calm (0) as6 Medication: 12/29 23:09 VIS not applicable for this client. kd3 Intake: 23:42 IV: 100ml; Total: 100ml. as6 Output: 12/30 06:48 Urine: 1000ml (Barney); Total: 1000ml. as6 Outcome: 00:14 Decision to Hospitalize by Provider. [facility] 06:46 Admitted to ER Hold. Please see [facility] for further documentation. as6 06:46 Condition: stable 06:46 Instructed on the need for admit. 06:47 Patient's length of stay in the Emergency Department was greater than 2 hours. waiting as6 admit Patient's length of stay extended due to 15:00 Patient left the ED. ll1 Signatures: Dispatcher [employer] EDMS Raymond Kirkland MD MD cha Botello, Elizabeth eb Lewis, Lynsay, RN RN ll1 Cee Pereira RN RN ld1 Dede Roger Ashby, RN RN as6 Shantelle Ruiz, RN RN kd3
--- NOTE | 2021-12-30 00:54 | P.HP ---
Certification for Inpatient Patient admitted to: Observation With expected LOS: <2 Midnights Patient will require the following post-hospital care: None Practitioner: I am a practitioner with admitting privileges, knowledge of patient current condition, hospital course, and medical plan of care. Services: Services provided to patient in accordance with Admission requirements found in Title 42 Section 412.3 of the Code of Federal Regulations Patient History Date of Service: 12/30/21 Primary Care Provider: Dr. 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 Patient reports that she typically uses a walker and has today wear a brace for left foot drop but she was not using a walker or wearing her brace and tripped falling to the ground she had hematoma to the back of her head, pain to the left elbow as well as back/hip pain. Patient was evaluated in the emergency departme nt her labs were unremarkable CT chest abdomen pelvis was performed which did reveal left inferior obturator ring fracture as well as superior pubic rami fracture with no extension into the acetabulum no displacement also noted L3 compression fracture less than 20% loss of height which is likely acute as well as cystic and solid mass in the pelvis which is suspicious for neoplasm, patient is already being treated for stage IV ovarian cancer. X-ray of the left elbow suggestive of suspected nondisplaced fracture of the radial head. Patient with significant pain, is unable to ambulate or stand with assistance at this time ED provider wishes to admit for further evaluation and management/PT eval possible inpatient rehab placement. Allergies sulfamethoxazole [From Bactrim] Allergy (Verified 12/25/17 16:34) Unknown Home Medications: Esomeprazole Mag Trihydrate [Nexium] 40 mg PO DAILY 03/29/17 Metoprolol Succinate 25 mg PO DAILY 03/29/17 Temazepam [Restoril*] 30 mg PO BEDTIME PRN 09/01/17 Umeclidinium Brm/Vilanterol Tr [Anoro Ellipta 62.5-25 Mcg INH] 1 inh IH DAILY 09/01/17 Atorvastatin Calcium [Lipitor] 40 mg PO BEDTIME tab 09/03/17 Albuterol Sulfate [Proair Hfa] 8.5 gm IH PRN PRN 12/25/17 clonazePAM [Klonopin] 1 mg PO DAILY 12/25/17 - Past Medical/Surgical History Diabetic: No -: A. fib -: Stage IV ovarian cancer -: Arthritis -: Chronic back pain -: Anxiety -: Partial hysterectomy -: Multiple back surgeries -: hemorrhoidectomy -: Colostomy Psychosocial/ Personal History: She is . She lives with her daughter. - Family History Father -: Heart disease, Hypertension - Social History Smoking Status: Never smoker Alcohol use: No CD- Drugs: No Caffeine use: Yes Place of Residence: Home Review of Systems 10-point ROS is otherwise unremarkable Musculoskeletal: Arm Pain (Left arm pain only with range of motion), Back Pain, Other (Hip pain), As per HPI Physical Examination - Physical Exam General: Alert, In no apparent distress, Oriented x3 HEENT: Atraumatic, PERRLA, Mucous membr. moist/pink, EOMI, Sclerae nonicteric Neck: Supple, 2+ carotid pulse no bruit, No LAD, Without JVD or thyroid abnormality Respiratory: Clear to auscultation bilaterally, Normal air movement Cardiovascular: Regular rate/rhythm, Normal S1 S2 Capillary refill: <2 Seconds Gastrointestinal: Normal bowel sounds, No tenderness Musculoskeletal: No tenderness Integumentary: No rashes Neurological: Normal speech, Normal strength at 5/5 x4 extr, Normal tone, Normal affect - Studies Laboratory Data (last 24 hrs) 12/29/21 21:38: PT 13.5 H, INR 1.22 12/29/21 21:38: WBC 9.9, Hgb 11.7 L, Hct 34.1 L, Plt Count 172 12/29/21 21:38: Sodium 136, Potassium 4.4, BUN 10, Creatinine 0.71, Glucose 138 H, Total Bilirubin 0.2, AST 26, ALT 20, Alkaline Phosphatase 120 H Assessment and Plan - Plan Assessment: Mechanical fall Left inferior obturator ring fracture/superior pubic ramus fracture 20% L3 compression fracture Left radial head fracture Atrial fibrillation on chronic anticoagulation Stage IV ovarian cancer on chemo Anxiety Plan: Mechanical fall Left inferior obturator ring fracture/superior pubic ramus fracture 20% L3 compression fracture Left radial head fracture Pubic rami fractures nondisplaced, Barney catheter was placed in the emergency department no extension to the acetabulum or posterior column involvement on CT. Continue with pain medication as necessary we will have patient evaluate by physical therapy and social secretary may benefit with inpatient rehab. Left radial head fracture very mild, patient without any pain at rest only with range of motion. Atrial fibrillation on chronic anticoagulation: Continue home dose of Xarelto once verified Stage IV ovarian cancer on chemo: Patient on monthly chemo, has colostomy from previous ex lap with mets to the colon found. Patient is DNR. Anxiety: Continue clonazepam DVT PPX: Continue home dose xarelto when confirmed Code status: DNR Discharge Plan: Home Plan to discharge in: 24 Hours - Advance Directives Does patient have a Living Will: No Does patient have a Durable POA for Healthcare: Yes - Code Status/Comfort Care Code Status Assessed: Yes (DNR) Critical Care: No Time Spent Managing Pts Care (In Minutes): 55
[2021-12-30] MEDS ORDERED: ONDANSETRON 4 MG/2 ML VIAL IV PRN (01:02)
[2021-12-30] MEDS ORDERED: TRAMADOL HCL 50 MG TAB PO PRN (01:02)
[2021-12-30] MEDS ORDERED: TRAMADOL HCL 50 MG TAB ONE ×3 (01:11→13:13)
[2021-12-30 02:45] VITALS: BMI 22.2
[2021-12-30] MEDS ORDERED: MORPHINE 2 MG/ML SYR ONE ×2 (03:36→09:19)
[2021-12-30] MEDS: MORPHINE 2 MG/ML SYR IV PRN ×4 (03:36→23:20)
[2021-12-30 03:53] LABS: Absolute Lymphocytes (CBC) 1.2 K/uL (0.7-4.9); Hematocrit 33.1 % (36.0-45.0); Lymphocytes % 18.5 % (15.3-44.8); MPV 8.7 fL (7.6-11.3); RBC Red Blood Cell Count 3.82 M/uL (3.86-4.86)
[2021-12-30 03:58] LABS: Potassium 4.2 mmol/L (3.5-5.1)
[2021-12-30] MEDS ORDERED: clonazePAM 1 MG TAB ONE (07:36)
[2021-12-30] MEDS: clonazePAM 1 MG TAB PO PRN ×2 (07:43→21:22)
[2021-12-30] MEDS ORDERED: ONDANSETRON 4 MG/2 ML VIAL ONE (09:19)
[2021-12-30] MEDS: TRAMADOL HCL 50 MG TAB PO PRN ×2 (13:33→20:19)
[2021-12-30] MEDS: PREGABALIN 50 MG CAP PO SCH (21:22)
[2021-12-30] MEDS: DOCUSATE NA 100 MG CAP PO SCH (23:21)
[2021-12-31] MEDS: TRAMADOL HCL 50 MG TAB PO PRN (03:59)
[2021-12-31 04:47] LABS: Potassium 4.5 mmol/L (3.5-5.1)
[2021-12-31 04:55] LABS: Absolute Lymphocytes (CBC) 1.5 K/uL (0.7-4.9); Hematocrit 30.2 % (36.0-45.0); Lymphocytes % 28.9 % (15.3-44.8); MPV 8.6 fL (7.6-11.3)
--- NOTE | 2021-12-31 06:47 | P.PN ---
Date of Service: 12/31/21 Subjective: improving, pain persists; medication takes edge off, but not able to mobilize much ROS: 10 point ROS as noted above, otherwise negative Physical exam GEN: Alert, oriented, NAD HEENT: Normal conjunctiva, sclera anicteric CV: Regular rate and rhythm, no edema Pulm: Nonlabored respirations on room air ABD: Soft, nontender, nondistended MSK: pain of left hip with ROM Neuro: Normal speech, normal affect Problem List Left inferior obturator ring fracture/superior pubic ramus fracture s/p mechanical fall 20% L3 compression fracture Left radial head fracture Atrial fibrillation on chronic anticoagulation Stage IV ovarian cancer on chemo Anxiety GERD randolph placed in ED due to limited mobility, PT to re-eval today, plan to remove randolph in next 24hrs ideally not moving much due to pain; change tramadol to norco 5, q6h; morphine breakthrough continue home lyrica, clonazepam restart PPI restart home xarelto PT consulted -recommended SNF VTE: xarelto Code: DNR Dispo: SNF for ongoing PT Time Spent Managing Pts Care (In Minutes): 35
[2021-12-31] MEDS: DOCUSATE NA 100 MG CAP PO SCH ×2 (07:53→22:21)
[2021-12-31] MEDS: PREGABALIN 50 MG CAP PO SCH ×3 (07:53→22:21)
[2021-12-31] MEDS: MORPHINE 2 MG/ML SYR IV PRN (07:54)
[2021-12-31] MEDS: HYDROCODONE/APAP 5/325 MG TAB PO PRN ×2 (12:30→22:32)
[2021-12-31] MEDS ORDERED: PANTOPRAZOLE 40MG TABLET PO ONE (12:30)
[2021-12-31] MEDS: RIVAROXABAN 15 MG TABLET PO SCH (17:30)
[2021-12-31] MEDS: clonazePAM 1 MG TAB PO PRN (22:21)
[2022-01-01] MEDS: MORPHINE 2 MG/ML SYR IV PRN ×2 (04:40→13:21)
[2022-01-01] MEDS: PANTOPRAZOLE 40MG TABLET PO SCH (06:13)
--- NOTE | 2022-01-01 06:28 | P.PN ---
Date of Service: 01/01/22 Subjective: did better with norco, able to sit up at bedside with PT yesterday no new symptoms appetite ok, no nausea/vomiting, no new numbness/tingling ROS: 10 point ROS as noted above, otherwise negative Physical exam GEN: Alert, oriented, NAD HEENT: Normal conjunctiva, sclera anicteric CV: Regular rate and rhythm, no edema Pulm: Nonlabored respirations on room air ABD: Soft, nontender, nondistended MSK: pain of left hip with ROM Neuro: Normal speech, normal affect randolph in place Problem List Left inferior obturator ring fracture/superior pubic ramus fracture s/p mechanical fall 20% L3 compression fracture Left radial head fracture Paroxysmal Atrial fibrillation on chronic anticoagulation Stage IV ovarian cancer on chemo Anxiety GERD randolph placed in ED due to limited mobility barely able to sit up to bedside for few minutes continue norco; morphine for breakthrough dc randolph tomorrow in AM continue home lyrica, clonazepam continue PPI, home xarelto PT consulted -recommended SNF; pt agreeable VTE: xarelto Code: DNR Dispo: SNF for ongoing PT Time Spent Managing Pts Care (In Minutes): 35
[2022-01-01] MEDS: DOCUSATE NA 100 MG CAP PO SCH ×2 (08:06→20:47)
[2022-01-01] MEDS: PREGABALIN 50 MG CAP PO SCH ×3 (08:06→20:47)
[2022-01-01] MEDS: HYDROCODONE/APAP 5/325 MG TAB PO PRN ×2 (08:19→20:47)
[2022-01-01] MEDS: RIVAROXABAN 15 MG TABLET PO SCH (18:06)
[2022-01-01] MEDS: clonazePAM 1 MG TAB PO PRN (20:47)
[2022-01-02] MEDS: MORPHINE 2 MG/ML SYR IV PRN ×3 (00:43→17:32)
[2022-01-02 04:51] LABS: Hematocrit 30.8 % (36.0-45.0); MPV 8.5 fL (7.6-11.3); RBC Red Blood Cell Count 3.59 M/uL (3.86-4.86)
[2022-01-02 05:06] LABS: Magnesium 1.7 mg/dL (1.8-2.4); Potassium 4.2 mmol/L (3.5-5.1)
[2022-01-02] MEDS: PANTOPRAZOLE 40MG TABLET PO SCH (05:54)
--- NOTE | 2022-01-02 06:22 | P.PN ---
Date of Service: 01/02/22 Subjective: improving, ambulated a few feet yesterday with walker/PT ROS: 10 point ROS as noted above, otherwise negative Physical exam GEN: Alert, oriented, NAD HEENT: Normal conjunctiva, sclera anicteric CV: Regular rate and rhythm, no edema Pulm: Nonlabored respirations on room air ABD: Soft, nontender, nondistended MSK: pain of left hip with ROM Neuro: Normal speech, normal affect randolph in place Problem List Left inferior obturator ring fracture/superior pubic ramus fracture s/p mechanical fall 20% L3 compression fracture Left radial head fracture Paroxysmal Atrial fibrillation on chronic anticoagulation Stage IV ovarian cancer on chemo Anxiety GERD randolph placed in ED due to limited mobility improving dc randolph continue norco; morphine for breakthrough continue home lyrica, clonazepam continue PPI, home xarelto, colace PT consulted -recommended SNF; pt agreeable VTE: xarelto Code: DNR Dispo: SNF for ongoing PT Time Spent Managing Pts Care (In Minutes): 35
[2022-01-02] MEDS: DOCUSATE NA 100 MG CAP PO SCH ×2 (08:53→21:05)
[2022-01-02] MEDS: PREGABALIN 50 MG CAP PO SCH ×3 (08:54→21:05)
[2022-01-02] MEDS: HYDROCODONE/APAP 5/325 MG TAB PO PRN ×3 (09:40→22:51)
[2022-01-02] MEDS: RIVAROXABAN 15 MG TABLET PO SCH (16:22)
[2022-01-02] MEDS ORDERED: POLYETHYL GLY 3350 17 GM/DOSE PO PRN (17:39)
[2022-01-03] MEDS: clonazePAM 1 MG TAB PO PRN (01:16)
[2022-01-03] MEDS: PANTOPRAZOLE 40MG TABLET PO SCH (05:38)
[2022-01-03] MEDS: HYDROCODONE/APAP 5/325 MG TAB PO PRN ×2 (06:19→16:57)
[2022-01-03] MEDS: DOCUSATE NA 100 MG CAP PO SCH ×2 (08:27→20:39)
[2022-01-03] MEDS: PREGABALIN 50 MG CAP PO SCH ×3 (08:27→20:39)
[2022-01-03] MEDS: MORPHINE 2 MG/ML SYR IV PRN ×2 (11:05→20:43)
[2022-01-03] MEDS: MAGNES/ALUMIN/SIMET 30ML UCUP PO PRN ×2 (15:05→20:40)
--- NOTE | 2022-01-03 16:16 | P.PN ---
Subjective Date of Service: 01/03/22 Primary Care Provider: Dr. Newsome Chief Complaint: Pubic rami fracture Patient has no new complaint except pain with movement. She ambulated in the room with physical therapy today. She is tolerating her diet. Physical Examination - Vital Signs Temperature: 98.8 F Blood Pressure: 144/81 Pulse: 78 Respirations: 16 Pulse Ox (%): 96 - Physical Exam General: Alert, In no apparent distress, Oriented x3 HEENT: Mucous membr. moist/pink Neck: JVD not distended Respiratory: Clear to auscultation bilaterally, Normal air movement Cardiovascular: No edema, Regular rate/rhythm, Normal S1 S2 Gastrointestinal: Soft and benign, Non-distended, No tenderness Musculoskeletal: No swelling Integumentary: No rashes, No cyanosis Neurological: Normal strength at 5/5 x4 extr Assessment And Plan - Plan Problem List Left inferior obturator ring fracture/superior pubic ramus fracture s/p mechanical fall 20% L3 compression fracture Left radial head fracture Paroxysmal Atrial fibrillation on chronic anticoagulation Stage IV ovarian cancer on chemo Anxiety GERD Plan: [place] Catheter in place Continue pain management. continue home lyrica, clonazepam Continue Xarelto Constipation prophylaxis PT as tolerated. Disposition to SNF for skilled rehab.
[2022-01-03] MEDS: RIVAROXABAN 15 MG TABLET PO SCH (16:55)
[2022-01-04] MEDS: PANTOPRAZOLE 40MG TABLET PO SCH (06:38)
[2022-01-04] MEDS: HYDROCODONE/APAP 5/325 MG TAB PO PRN ×4 (06:41→23:15)
[2022-01-04] MEDS: PREGABALIN 50 MG CAP PO SCH ×3 (08:11→20:02)
[2022-01-04] MEDS: DOCUSATE NA 100 MG CAP PO SCH ×2 (08:11→20:02)
[2022-01-04] MEDS: MORPHINE 2 MG/ML SYR IV PRN ×2 (10:15→20:02)
--- NOTE | 2022-01-04 15:56 | P.DS ---
Admission Date: 12/31/21 Discharge Date: 01/04/22 Primary Care Provider: Dr. Newsome Disposition: TRANSFER TO SNF Discharge Condition: FAIR Reason for Admission: Pubic rami fracture Brief History of Present Illness: 86-year-old female with history of atrial fibrillation on chronic anticoagulation therapy, stage IV ovarian cancer on chemo, hypertension, anxiety presented to the emergency department after mechanical fall sustained at her home. Patient reports that she typically uses a walker and wear a brace for left foot drop but she was not using a walker or wearing her brace and tripped falling to the ground. She developed hematoma to the back of her head, pain to the left elbow as well as back/hip pain. Patient was evaluated in the emergency department, her labs were unremarkable CT chest abdomen pelvis performed did reveal left inferior obturator ring fracture as well as superior pubic rami fracture with no extension into the acetabulum no displacement, L3 compression fracture less than 20% loss of height which is likely acute as well as cystic and solid mass in the pelvis which is suspicious for neoplasm. Patient is onbeing treatment for stage IV ovarian cancer. X-ray of the left elbow suggestive of suspected nondisplaced fracture of the radial head. Patient with significant pain, is unable to ambulate or stand with assistance. She was stable for admit to the for further management. Hospital Course: Problem List Left inferior obturator ring fracture/superior pubic ramus fracture s/p mechanical fall 20% L3 compression fracture Left radial head fracture Paroxysmal Atrial fibrillation on chronic anticoagulation Stage IV ovarian cancer on chemo Anxiety GERD Hospital course: Patient admitted to the medical floor and treated supportively weight oral and IV opioids for pain control. continued her home lyrica, clonazepam and Xarelto Continue Xarelto. She was also placed on constipation prophylaxis. Patient seen by PT. She tolerated PT and was able to ambulate with assistance. Patient accepted to skilled rehab. Vitals are stable for transfer. Vital Signs/Physical Exam: Temp Pulse Resp BP Pulse Ox 97.1 F 60 16 139/69 97 01/04/22 12:00 01/04/22 12:00 01/04/22 12:00 01/04/22 12:01/04/22 12:00 General: Alert, In no apparent distress, Oriented x3 HEENT: Mucous membr. moist/pink Neck: Supple, JVD not distended Respiratory: Clear to auscultation bilaterally, Normal air movement Cardiovascular: No edema, Regular rate/rhythm, Normal S1 S2 Gastrointestinal: Normal bowel sounds, Soft and benign, Non-distended, No tenderness Musculoskeletal: No swelling Integumentary: No rashes, No cyanosis Neurological: Normal strength at 5/5 x4 extr Laboratory Data at Discharge: WBC 4.2 K/uL (4.3-10.9) L D 01/02/22 04:36 Hgb 10.6 g/dL (12.0-15.0) L 01/02/22 04:36 Hct 30.8 % (36.0-45.0) L 01/02/22 04:36 Plt Count 158 K/uL (152-406) 01/02/22 04:36 PT 13.5 SECONDS (9.5-12.5) H 12/29/21 21:38 INR 1.22 12/29/21 21:38 Sodium 136 mmol/L (136-145) 01/02/22 04:36 Potassium 4.2 mmol/L (3.5-5.1) 01/02/22 04:36 BUN 11 mg/dL (7-18) 01/02/22 04:36 Creatinine 0.58 mg/dL (0.55-1.3) 01/02/22 04:36 Glucose 93 mg/dL (74-106) 01/02/22 04:36 Magnesium 1.7 mg/dL (1.8-2.4) L 01/02/22 04:36 Total Bilirubin 0.2 mg/dL (0.2-1.0) 12/29/21 21:38 AST 26 U/L (15-37) 12/29/21 21:38 ALT 20 U/L (12-78) 12/29/21 21:38 Alkaline Phosphatase 120 U/L (45-117) H 12/29/21 21:38 Home Medications: Esomeprazole Mag Trihydrate [Nexium] 40 mg PO DAILY 03/29/17 Umeclidinium Brm/Vilanterol Tr [Anoro Ellipta 62.5-25 Mcg INH] 1 inh IH DAILY 09/01/17 clonazePAM [Klonopin*] 1 mg PO BID 12/25/17 Docusate [Colace Cap*] 250 mg PO BID 12/30/21 Pregabalin [Lyrica*] 1 cap PO TID 12/30/21 Rivaroxaban [Xarelto] 20 mg PO DAILY 12/30/21 Docusate [Colace Cap*] 100 mg PO BID cap 01/04/22 Hydrocodone 5/APAP 325 [[place] 5/325*] 1 tab PO Q6H PRN #15 tab 01/04/22 Polyethyl Gly 3350 [Glycolax*] 17 gm PO DAILY PRN udbot 01/04/22 New Medications: Hydrocodone 5/APAP 325 [[place] 5/325*] 1 tab PO Q6H PRN #15 tab PRN Reason: Pain Scale 5-7 (Moderate) Diet: AHA Activity: Ad fox Followup: Saumya Newsome DO, DO [Primary Care Provider] - Time spent managing pt's care (in minutes): 35
[2022-01-04] MEDS: RIVAROXABAN 15 MG TABLET PO SCH (16:32)
[2022-01-04] MEDS: clonazePAM 1 MG TAB PO PRN (21:52)
[2022-01-05] MEDS: PANTOPRAZOLE 40MG TABLET PO SCH (05:48)
[2022-01-05] MEDS: HYDROCODONE/APAP 5/325 MG TAB PO PRN ×2 (07:37→13:07)
[2022-01-05] MEDS: PREGABALIN 50 MG CAP PO SCH ×2 (08:32→14:34)
[2022-01-05] MEDS: DOCUSATE NA 100 MG CAP PO SCH (08:32)
[2022-01-05 10:55] VITALS: O2SAT 98
[2022-01-05 12:50] VITALS: TEMP 98.8
[2022-01-05 15:53] VITALS: BP 112/73
[2022-01-05] MEDS: MAGNES/ALUMIN/SIMET 30ML UCUP PO PRN (17:33)
== END 2022-01-05 17:30 | DRG 536 ==
LOC: ER 20:12 → ERHOLD 12-30 00:28 → 2ND 12-30 14:53 → OBSVTOIN 12-31 10:10
PROVIDERS: ADMIT Hospitalist; ATTEND Hospitalist
PROC: 0JQH3ZZ Repair Left Lower Arm Subcutaneous Tissue and Fascia, Percutaneous Approach (ICD-10-PCS; principal; 2021-12-29)
DX: S32.592A Other specified fracture of left pubis, initial encounter for closed fracture (principal); S32.030A Wedge compression fracture of third lumbar vertebra, initial encounter for closed fracture; C56.9 Malignant neoplasm of unspecified ovary; S32.89XA Fracture of other parts of pelvis, initial encounter for closed fracture; W01.0XXA Fall on same level from slipping, tripping and stumbling without subsequent striking against object, initial encounter; Y92.009 Unspecified place in unspecified non-institutional (private) residence as the place of occurrence of the external cause; S52.122A Displaced fracture of head of left radius, initial encounter for closed fracture; F41.9 Anxiety disorder, unspecified; S51.012A Laceration without foreign body of left elbow, initial encounter; I48.0 Paroxysmal atrial fibrillation; K21.9 Gastro-esophageal reflux disease without esophagitis; Z79.01 Long term (current) use of anticoagulants; Z23 Encounter for immunization; Z66 Do not resuscitate; Z20.822 Contact with and (suspected) exposure to COVID-19
CPT/HCPCS: 36415; 51702; 70450; 71260; 72125; 72170; 74177; 80048; 80076; 81003; 83735; 85025; 85027; 85610; 86850; 86900; 86901; 90471; 90714; 96365; 96366; 97110; 97116; 97161; 97530; 99285; G0378; J0690; J2270; J2405; Q9967; U0003

== ENCOUNTER 2022-02-10 09:03 | Observation (INO) | payer OTHER ==
--- OUTSIDE RECORDS SUMMARY | 2022-02-10 09:09 | XMS REPORT | Clinical Summary ---
:1935 Author Organization [facility] MD Christina [facility] Address [address] [place] [address] Care Team Providers Name Role Phone MD [...] daily of unspecified ovary, Gastroesophageal reflux disease pregabalin (LYRICA) TAKE 1 90 capsule 2 Active 50 mg CAPSULE BY 2 capsuleIndications: MOUTH THREE Chronic pain TIMES DAILY diclofenac sodium Apply 2 g 450 g 1 Ac tive (Voltaren) 1 % topically to 2 gelIndications: affected Chronic back pain area(s) 3 (three) times a day. diclofenac sodium Apply 2 g 100 g [...] daily. esomeprazole Take 1 30 capsule 0 02/16/20 [...] Chronic pain 3 (three) times a day. methocarbamol Take 0.5 60 tablet 0 01/28/20 Discon tinued (ROBAXIN) 500 mg tablets (250 1 (Therapy tabletIndications: mg) by mouth completed) Chronic back pain, every 8 Chronic pain (eight) hours as needed for muscle spasms (pain). pregabalin (LYRICA) Take 1 60 capsule 0 [...] 250 mg (250 mg) by 2 22 (Th erapy tabletIndications: mouth twice completed) Dysuria daily. pregabalin (LYRICA) TAKE 1 90 capsule 0 10/28/19 Discontinued 50 mg CAPSULE BY 2 (Reorder) capsuleIndications: MOUTH THREE Chronic pain TIMES DAILY diclofenac sodium Apply 2 g 100 g 2 01/28/20 Di scontinued (Voltaren) 1 % topically to 2 22 (R eorder) gelIndications: affected Chronic pain area(s) 4 (four) times a day. 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 07/30/2020 Colostomy status 07/30/2020 Frailty 07/30/2020 Chronic pain 07/30/2020 Opioid abuse continuous use 07/30/2020 H/O: pulmonary embolus 07/30/2020 detention current use of anticoagulant 07/30/2020 Gastroesophageal reflux disease 07/30/2020 Herpes zoster 07/30/2020 Deep venous thrombosis 07/30/2020 Cancer associated pain 07/30/2020 Coronary atherosclerosis of [place] coronary artery 05/2020 Essential hypertension 07/29/2020 Mixed [...] Encounters Date Type Specialty Care Team Description 02/01/2022 Telephone Pain Medicine Meche Crystal RN 01/27/2022 Infusion Infusion Services Keny, 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 (Primary Dx); ASIM Romero 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> Hazel Lewis RN 01/27/2022 Office Visit Gynecology Francisco Batres malig nant 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> (Primary Dx); Almita Perez MD Metastatic can cer to the peritoneum; Encounter for e xamination prior to antineoplastic chemotherapy 01/27/2022 Office Visit Pain Medicine Jacek Kimball Chronic back pain (Primary Dx); MD Aisha Chronic pain 01/27/2022 Clinical Support Infusion Services Almita Batres MD 01/27/2022 Travel 01/26/2022 Orders Only Gynecology Francisco Batres malig nant of Almita Perez MD ovary <Bilater al> (Primary Dx) 01/24/2022 Orders Only Gynecology Francisco Bustillo malig nant 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> (Primary Dx); ASIM Romero Metastatic canc er to the peritoneum 01/23/2022 Orders Only Gynecology Nick Bustillo PA 01/23/2022 Orders Only Gynecology Nick Bustillo PA 01/17/2022 Hospital Encounter Radiology AustinAdriane schmidt, Malignant neoplasm of unspecified ovary; PA Metastatic canc er to the peritoneum; Encounter for e xamination prior to antineoplastic chemotherapy; Neoplasm, malig nant 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> 01/17/2022 Travel 01/16/2022 Orders Only Gynecology Keny, Neoplasm, malig nant 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> (Primary Dx); ASIM Romero Metastatic canc er to the peritoneum 01/13/2022 Orders Only Gynecology Almita Batres MD 11/22/2021 Orders Only Gynecology Keny, Neoplasm, malig [...] danielle 11/04/2021 Travel 11/03/2021 Orders Only Gynecology Gisel, Neoplasm, malig nant of ovary [...] Batres MD 10/14/2021 Orders Only Gynecology Francisco Batres malig nant of Almita Perez MD ovary <Bilater al> [...] MD adjustment and Coyle, management of v jose Lopez RN access device ( Primary Dx) 10/09/2021 Travel 10/06/2021 Orders Only Gynecology Francisco Batres, malleonie nant 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> (Primary Dx); Almita Perez MD Metastatic can cer to the peritoneum 10/06/2021 Orders Only Gynecology Keny Neoplasm, shelby painter of ASIM Romero ovary <Bilatera l> (Primary Dx) 10/05/2021 Orders Only Gynecology Keny Neoplasm, malig nant of Nick, ASIM ovary <Bilatera l> (Primary Dx) 10/05/2021 Orders Only Gynecology Keny Thrombosis of i nternal ASIM Romero jugular vein <R ight side> (Primary Dx) 10/04/2021 Hospital Encounter Radiology Keny, Malignant neoplasm of unspecified ovary; ASIM Romero Metastatic canc er to the peritoneum; Encounter for e xamination prior to antineoplastic chemotherapy; Neoplasm, malig nant 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> 10/04/2021 Hospital Encounter Lab Keny, Metastati c cancer to the peritoneum; ASIM Romero Neoplasm, malig nant 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> 10/04/2021 Travel 09/14/2021 Infusion Infusion Services Keny, 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 (Primary Dx); ASIM Romero Neoplasm, malig nant 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> 09/14/2021 Office Visit Gynecology Batres, Neoplasm, malig nant 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> (Primary [...] PA Metastatic canc er to the peritoneum 08/29/2021 Telephone Gynecology Teri, November Medication Ref ill Héctor, RN 08/24/2021 Infusion Infusion Services Metastatic cancer [...] 08/03/2021 Hospital Encounter Pain Medicine Jacek Kimball Chroni c back pain MD Aisha 08/03/2021 Travel 08/03/2021 Orders Only Pain Medicine Jozef Mendez MD 07/29/2021 Infusion Infusion Services Malignant neoplasm of unspecified ovary (Primary Dx); Metastatic canc er to the peritoneum 07/29/2021 Office Visit Pain Medicine Jacek Kimball Chronic back pain (Primary Dx); MD Aisha Chronic pain 07/29/2021 Office Visit Gynecology Batres, Malignant neopl asm of unspecified ovary (Primary Dx); Almita Perez MD Encounter for examination prior to antineoplastic chemotherapy; Metastatic canc er to the peritoneum; Abnormal urinal ysis; Mass of muscle of left upper limb; Neoplasm, malig nant 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> 07/29/2021 Clinical Support Infusion Services Almita Batres MD 07/29/2021 Orders Only Gynecology Keny Malignant neopl asm of ASIM Romero unspecified ova ry (Primary Dx) 07/29/2021 Travel [...] Refill Gynecology Keny Malignant neopl asm of ASIM Romero unspecified ova ry 06/17/2021 Infusion Infusion Services Malignant neoplasm of unspecified ovary (Primary Dx); Metastatic canc er to the peritoneum 06/17/2021 Office Visit Gynecology Keny Malignant neopl asm of unspecified ovary (Primary Dx); Nick PA Metastatic canc er to the peritoneum; Dysuria 06/17/2021 Clinical Support Infusion Services 06/17/2021 Orders Only Gynecology Gisel Malignant neopl asm of Almita Perez MD unspecified ov danielle (Primary Dx) 06/17/2021 Travel 05/17/2021 Refill Pain Medicine Jacek Kimball MD 05/13/2021 Office Visit Gynecology Gisel Malignant neopl asm [...] to the peritoneum 04/22/2021 Office Visit Gynecology Gisel Malignant neopl asm of unspecified ovary (Primary Dx); Almita Perez MD Metastatic can cer to the peritoneum; Encounter for e xamination prior to antineoplastic chemotherapy; Gastroesophagea l reflux disease 04/22/2021 Clinical Support Infusion Services Almita Batres MD 04/22/2021 Travel 04/20/2021 Ancillary Procedure Radiology Keny Malignan t neoplasm of unspecified ovary; ASIM Romero Metastatic canc er to the peritoneum 04/20/2021 Travel 03/25/2021 Infusion Infusion Services Keny Malignant neoplasm of unspecified ovary (Primary Dx); ASIM Romero Metastatic canc er to the peritoneum 03/25/2021 Office Visit Gynecology Keny Malignant neopl asm of unspecified ovary (Primary Dx); ASIM Romero Metastatic canc er to the peritoneum 03/25/2021 Orders Only Gynecology Cole Mcknight MD 03/25/2021 Travel 03/22/2021 Orders Only Gynecology Keny Malignant neopl asm of ASIM Romero unspecified ova ry 03/21/2021 Orders Only Gynecology Gisel, Malignant neopl asm of Almita Perez MD unspecified ov danielle (Primary Dx) 03/20/2021 Orders Only Gynecology Adriane Paul Gastroesophagea l reflux PA disease 03/17/2021 Orders Only Gynecology Adriane Paul PA 03/04/2021 Infusion Infusion Services Adriane Paul, Malignant neoplasm of unspecified ovary (Primary Dx); PA Metastatic canc er to the peritoneum 03/04/2021 Office Visit Gynecology Gisel, Malignant neopl asm of unspecified ovary (Primary Dx); Almita Perez MD Metastatic can cer to the peritoneum 03/04/2021 Clinical Support Infusion Services Bryan Malign ant neoplasm of Saneese K, PA unspecified ov danielle 03/04/2021 Travel 02/25/2021 Infusion Infusion Services Adriane Paul, Malignant neoplasm of unspecified ovary; PA Metastatic canc er to the peritoneum 02/25/2021 Clinical Support Infusion Services Bryan Malign ant neoplasm of Saneese K, PA [...] Batres MD 02/18/2021 Travel 02/15/2021 Refill Gynecology Bryan Gastroesophagea l reflux Saneese K, PA disease 02/10/2021 Refill Pain Medicine Harrison, Chronic pain Abdullahi Webb, RN after 02/10/2021 Immunizations Name Administration Dates Next Due Pfizer SARS-CoV-2 Vaccination 04/18/2021 Surgical History Surgery Date Site/Laterality Comments COLON SURGERY 02/17/2018 - colostomy 03/19/2018 BACK SURGERY 08/20/2014 - 08/19/2015 HYSTERECTOMY 08/20/1979 - 08/19/1980 CATARACT EXTRACTION, BILATERAL UT INSJ TUNNELED CTR VAD 09/30/2020 Neck/Right Procedu re: PORT-A-CATH W/SUBQ PORT AGE 5 YR/> PLACEMENT ; Surgeon: Conner Hogan MD; L ocation: [facility]; Servic e: SURG ONC - PORT Medical devices from this surgery are in t he Medical Devices section. UT CHG US GUIDE, VASCULAR 09/30/2020 Neck/Right Proced ure: US GUIDANCE ACCESS WITH EVAL OF POT ENTIAL ACCESS SITES, RE ALTIME US VISUALIZATION OF VASC NEEDLE ENTRY; S urgeon: Conner Hogan MD; Location: [facility]; Service: SURG ON C - PORT Medical devices from this surgery are in t he Medical Devices section. UT CHG FLUOROGUIDE CNTRL 09/30/2020 Neck/Right Procedu re: FLUORO GUIDANCE VIDA FOR CENTRAL VENO US ACCESS ACCESS,PLACE,REPLACE,REMOV DEVIC E PLACEMENT, E REPLACEMENT, OR REMOVAL; Surgeon: Conner Hogan MD; Location: [facility] OR; Service: SURG ON C - PORT Medical devices from this surgery are in t Medical Devices section. Medical History Medical History Date Comments Hypertension no medication for ap proximately 1 year. 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 Obstetrics History Para Term AB IAB SAB Ectopic Multiple Living Live Births 2 2 2 Date Outcome GA Total Labor/2nd/3rd Weight Sex Delivery Anes PTL [place] A 1 A5 Name Clin Labor Para Para Last Filed Vital Signs Vital Sign Reading Time Taken Comments Blood Pressure 140/84 01/27/2022 12:43 PM CDT Pulse 73 01/27/2022 12:43 PM CDT Temperature 36.4 C (97.5 F) 01/27/2022 12:43 PM CDT Respiratory Rate 20 01/27/2022 12:43 PM CDT Oxygen Saturation 97% 10/09/2021 11:29 AM [employer]IST Inhaled Oxygen Concentration - - Weight 51.1 kg (112 lb 10.5 oz) 01/27/2022 12:45 PM CDT Height 146 cm (4' 9.48") 01/27/2022 12:45 PM CDT Body Mass Index 23.97 01/27/2022 12:45 PM CDT Plan of Treatment Date Type Specialty Care Team Description 02/17/2022 Procedure visit Pain Medicine Jacek Kimball MD [address] [place] [address] [phone] (Wo rk) 02/24/2022 Clinical Support Infusion Services Alfredito Batres MD [address] [place] [address] [phone] (Wo rk) 02/24/2022 Lab Lab Adriane Paul PA [address] [place] [address] [phone] (Wo rk) 02/24/2022 Office Visit Gynecology Almita Batres MD [address] [place] [address] [phone] (Wo rk) 02/24/2022 Infusion Infusion Services Adriane Paul P A [address] [place] [address] [phone] (Wo rk) 06/16/2022 Office Visit Pain Medicine Jacek Kimball MD [address] [place] [address] [phone] (Wo rk) Health Maintenance Due Date Last Done Comments COVID-19 Vaccination (2 - Pfizer risk series) 05/09/2021 Medical Devices Implanted Type Area Coach Tour Driver Device Identifier Shelf Model / Expiration Serial / Date Lot [employer]port Gely Slim 6fr W/Smth Septum - Sna Port Right: BARD PERIPHERAL [id number] 10/17/2021 [id number] / Implanted: Qty: 1 on 09/30/2020 by Conner Hogan MD at [facility] Internal VASCULAR NA / Jugular [id number] Description: Catheter length-21 CM Procedures Procedure Name Priority Date/Time Associated Diagnosis Comme nts CALCIUM LEVEL TOTAL Routine 01/27/2022 9:33 Metastatic cancer to Results for this AM CDT the peritoneum procedure are in Neoplasm, malignant the resu lts 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> section . .GLOMERULAR FILTRATION Routine 01/27/2022 9:33 Metastatic can cer to Results for this RATE AM CDT the peritoneum procedure are in Neoplasm, malignant the resu lts 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> section . SERUM CREATININE Routine 01/27/2022 9:33 Metastatic cancer to Results for this AM CDT the peritoneum procedure are in Neoplasm, malignant the resu lts 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> section . ELECTROLYTE PANEL Routine 01/27/2022 9:33 Metastatic cancer t o Results for this AM CDT the peritoneum procedure are in Neoplasm, malignant the resu lts 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> section . BLOOD UREA NITROGEN Routine 01/27/2022 9:33 Metastatic cancer to Results for this AM CDT the peritoneum procedure are in Neoplasm, malignant the resu lts 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> section . GLUCOSE LEVEL Routine 01/27/2022 9:33 Metastatic cancer to Re sults for this AM CDT the peritoneum procedure are in Neoplasm, malignant the resu lts 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> section . MANUAL DIFFERENTIAL Routine 01/27/2022 9:33 Metastatic cancer to Results for this AM CDT the peritoneum procedure are in Neoplasm, malignant the resu lts 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> section . Results CBC Routine 01/27/2022 9:33 Metastatic cancer to Res ults for this AM CDT the peritoneum procedure are in Neoplasm, malignant the resu lts 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> section . MAGNESIUM LEVEL Routine 01/27/2022 9:33 Metastatic cancer to Results for this AM CDT the peritoneum procedure are in Neoplasm, malignant the resu lts 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> section . ASPARTATE Routine 01/27/2022 9:33 Metastatic cancer to Res ults for this AMINOTRANSFERASE AM CDT the peritoneum procedure are in Neoplasm, malignant the resu lts 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> section . ALANINE Routine 01/27/2022 9:33 Metastatic cancer to Res ults for this AMINOTRANSFERASE AM CDT the peritoneum procedure are in Neoplasm, malignant the resu lts 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> section . BILIRUBIN TOTAL Routine 01/27/2022 9:33 Metastatic cancer to Results for this AM CDT the peritoneum procedure are in Neoplasm, malignant the resu lts 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> section . BASIC METABOLIC PANEL, Routine 01/27/2022 9:33 Metastatic can cer to CALCIUM TOTAL AM CDT the peritoneum 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> COMPLETE BLOOD COUNT W/ Routine 01/27/2022 9:33 Metastatic ca ncer to DIFFERENTIAL AM CDT the peritoneum 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> CANCER ANTIGEN 125 Routine 01/27/2022 9:33 Metastatic cancer to Results for this AM CDT the peritoneum procedure are in Neoplasm, malignant the resu lts 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> section . CT CHEST ABDOMEN PELVIS Routine 01/17/2022 8:06 Malignant thierno plasm of Results for this W CONTRAST PM CDT unspecified ovar y procedure are in Metastatic cancer to the res ults the peritoneum section. Encounter for examination prior to antineoplastic chemotherapy 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> POC CREATININE Routine 01/17/2022 5:52 Results f or this PM CDT procedure are i n the results section. URINALYSIS MICROSCOPIC Routine 11/04/2021 8:45 R esults [...] Metastatic cancer to Results for this PM [employer] the peritoneum procedure are in Neoplasm, malignant the resu lts 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> section . .GLOMERULAR FILTRATION Routine 10/14/2021 1:43 Metastatic can cer to Results for this RATE PM [employer] BI[employer]IST the peritoneum procedure are in Neoplasm, malignant the resu lts 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> section . SERUM CREATININE Routine 10/14/2021 1:43 Metastatic cancer to Results for this PM [employer] BI[employer]IST the peritoneum procedure are in Neoplasm, malignant the resu lts 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> section . ELECTROLYTE PANEL Routine 10/14/2021 1:43 Metastatic cancer t o Results for this PM [employer]IST the peritoneum procedure are in Neoplasm, malignant the resu lts 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> section . BLOOD UREA NITROGEN Routine 10/14/2021 1:43 Metastatic cancer to Results for this PM [employer]IST the peritoneum procedure are in Neoplasm, malignant the resu lts 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> section . GLUCOSE LEVEL Routine 10/14/2021 1:43 Metastatic cancer to Re sults for this PM [employer] BI[employer]IST the peritoneum procedure are in Neoplasm, malignant the resu lts 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> section . MANUAL DIFFERENTIAL Routine 10/14/2021 1:43 Metastatic cancer to Results for this PM [employer]IST the peritoneum procedure are in Neoplasm, malignant the resu lts 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> section . Results CBC Routine 10/14/2021 1:43 Metastatic cancer to Res ults for this PM [employer]IST the peritoneum procedure are in Neoplasm, malignant the resu lts 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> section . MAGNESIUM LEVEL Routine 10/14/2021 1:43 Metastatic cancer to Results for this PM [employer]IST the peritoneum procedure are in Neoplasm, malignant the resu lts 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> section . ASPARTATE Routine 10/14/2021 1:43 Metastatic cancer to Res ults for this AMINOTRANSFERASE PM [employer]IST the peritoneum procedure are in Neoplasm, malignant the resu lts 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> section . ALANINE Routine 10/14/2021 1:43 Metastatic cancer to Res ults for this AMINOTRANSFERASE PM [employer] BIOLOGIST the peritoneum procedure are in Neoplasm, malignant the resu lts 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> section . BILIRUBIN TOTAL Routine 10/14/2021 1:43 Metastatic cancer to Results for this PM [employer]IST the peritoneum procedure are in Neoplasm, malignant the resu lts 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> section . BASIC METABOLIC PANEL, Routine 10/14/2021 1:43 Metastatic can cer to CALCIUM TOTAL PM [employer]IST the peritoneum 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> COMPLETE BLOOD COUNT W/ Routine 10/14/2021 1:43 Metastatic ca ncer to DIFFERENTIAL PM [employer] BI[employer]IST the peritoneum 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> CANCER ANTIGEN 125 Routine 10/14/2021 1:43 Metastatic cancer to Results for this PM [employer]IST the peritoneum procedure are in Neoplasm, malignant the resu lts 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> section . CT CHEST ABDOMEN PELVIS Routine 10/04/2021 1:16 Malignant thierno plasm of Results for this W CONTRAST PM [employer] BI[employer]IST unspecified ovar y procedure are in Metastatic cancer to the res ults the peritoneum section. Encounter for examination prior to antineoplastic chemotherapy 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> CALCIUM LEVEL TOTAL Routine 10/04/2021 10:01 Metastatic cancer to Results for this AM [employer] the peritoneum procedure are in Neoplasm, malignant the resu lts 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> section . .GLOMERULAR FILTRATION Routine 10/04/2021 10:01 Metastatic can cer to Results for this RATE AM [employer]IST the peritoneum procedure are in Neoplasm, malignant the resu lts 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> section . SERUM CREATININE Routine 10/04/2021 10:01 Metastatic cancer to Results for this AM [employer]IST the peritoneum procedure are in Neoplasm, malignant the resu lts 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> section . ELECTROLYTE PANEL Routine 10/04/2021 10:01 Metastatic cancer t o Results for this AM [employer]IST the peritoneum procedure are in Neoplasm, malignant the resu lts 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> section . BLOOD UREA NITROGEN Routine 10/04/2021 10:01 Metastatic cancer to Results for this AM [employer] BI[employer]IST the peritoneum procedure are in Neoplasm, malignant the resu lts 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> section . GLUCOSE LEVEL Routine 10/04/2021 10:01 Metastatic cancer to Re sults for this AM [employer] BI[employer]IST the peritoneum procedure are in Neoplasm, malignant the resu lts 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> section . MANUAL DIFFERENTIAL Routine 10/04/2021 10:01 Metastatic cancer to Results for this AM [employer]IST the peritoneum procedure are in Neoplasm, malignant the resu lts 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> section . Results CBC Routine 10/04/2021 10:01 Metastatic cancer to Res ults for this AM [employer] BI[employer]IST the peritoneum procedure are in Neoplasm, malignant the resu lts 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> section . MAGNESIUM LEVEL Routine 10/04/2021 10:01 Metastatic cancer to Results for this AM [employer] BIOLOGIST the peritoneum procedure are in Neoplasm, malignant the resu lts 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> section . ASPARTATE Routine 10/04/2021 10:01 Metastatic cancer to Res ults for this AMINOTRANSFERASE AM [employer] BI[employer]IST the peritoneum procedure are in Neoplasm, malignant the resu lts 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> section . ALANINE Routine 10/04/2021 10:01 Metastatic cancer to Res ults for this AMINOTRANSFERASE AM [employer] BIOLOGIST the peritoneum procedure are in Neoplasm, malignant the resu lts 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> section . BILIRUBIN TOTAL Routine 10/04/2021 10:01 Metastatic cancer to Results for this AM [employer] BIOLOGIST the peritoneum procedure are in Neoplasm, malignant the resu lts 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> section . BASIC METABOLIC PANEL, Routine 10/04/2021 10:01 Metastatic can cer to CALCIUM TOTAL AM [employer] BIOLOGIST the peritoneum 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> COMPLETE BLOOD COUNT W/ Routine 10/04/2021 10:01 Metastatic ca ncer to DIFFERENTIAL AM [employer] BI[employer]IST the peritoneum 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> CANCER ANTIGEN 125 Routine 10/04/2021 10:01 Metastatic cancer to Results for this AM [employer]IST the peritoneum procedure are in Neoplasm, malignant the resu lts 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> section . URINALYSIS MICROSCOPIC Routine 09/14/2021 1:53 R esults for this PM [employer] BIOLOGIST procedure are i n the results section. URINALYSIS WITH Routine 09/14/2021 1:53 Metastatic cancer to Results for this MICROSCOPIC IF PM [employer] BIOLOGIST the peritoneum procedure are in INDICATED Neoplasm, malignant the resu lts 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> section . CALCIUM LEVEL TOTAL Routine 09/14/2021 1:50 Metastatic cancer to Results for this PM [employer] BIOLOGIST the peritoneum procedure are in Neoplasm, malignant the resu lts 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> section . .GLOMERULAR FILTRATION Routine 09/14/2021 1:50 Metastatic can cer to Results for this RATE PM [employer] BIOLOGIST the peritoneum procedure are in Neoplasm, malignant the resu lts 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> section . SERUM CREATININE Routine 09/14/2021 1:50 Metastatic cancer to Results for this PM [employer] BI[employer]IST the peritoneum procedure are in Neoplasm, malignant the resu lts 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> section . ELECTROLYTE PANEL Routine 09/14/2021 1:50 Metastatic cancer t o Results for this PM [employer] BI[employer]IST the peritoneum procedure are in Neoplasm, malignant the resu lts 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> section . BLOOD UREA NITROGEN Routine 09/14/2021 1:50 Metastatic cancer to Results for this PM [employer] BIOLOGIST the peritoneum procedure are in Neoplasm, malignant the resu lts 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> section . GLUCOSE LEVEL Routine 09/14/2021 1:50 Metastatic cancer to Re sults for this PM [employer] the peritoneum procedure are in Neoplasm, malignant the resu lts 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> section . MANUAL DIFFERENTIAL Routine 09/14/2021 1:50 Metastatic cancer to Results for this PM [employer] the peritoneum procedure are in Neoplasm, malignant the resu lts 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> section . 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 ASPARTATE Routine 09/14/2021 1:50 Metastatic cancer to Res ults for this AMINOTRANSFERASE PM [employer] the peritoneum procedure are in Neoplasm, malignant the resu lts 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> section . ALANINE Routine 09/14/2021 1:50 Metastatic cancer to Res ults for this AMINOTRANSFERASE PM [employer] the peritoneum procedure are in Neoplasm, malignant the resu lts 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> section . 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 URINE CULTURE Routine 09/14/2021 1:53 Dysuria Results fo r this AM [employer] procedure are i n the results section. CALCIUM LEVEL TOTAL Routine 08/24/2021 9:43 Metastatic cancer to Results for this AM [employer] the peritoneum procedure are in Neoplasm, malignant the resu lts 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> section . .GLOMERULAR FILTRATION Routine 08/24/2021 9:43 Metastatic can cer to Results for this RATE AM [employer] the peritoneum procedure are in Neoplasm, malignant the resu lts 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> section . 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 ELECTROLYTE PANEL Routine 08/24/2021 9:43 Metastatic cancer t o Results for this AM [employer] the peritoneum procedure are in Neoplasm, malignant the resu lts 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> section . 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 GLUCOSE LEVEL Routine 08/24/2021 9:43 Metastatic cancer to Re sults for this AM [employer] the peritoneum procedure are in Neoplasm, malignant the resu lts 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> section . MANUAL DIFFERENTIAL Routine 08/24/2021 9:43 Metastatic cancer to Results for this AM [employer] the peritoneum procedure are in Neoplasm, malignant the resu lts 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> section . Results CBC Routine 08/24/2021 9:43 Metastatic cancer to Res ults for this AM [employer] the peritoneum procedure are in Neoplasm, malignant the resu lts 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> section . 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 ASPARTATE Routine 08/24/2021 9:43 Metastatic cancer to Res ults for this AMINOTRANSFERASE AM [employer] the peritoneum procedure are in Neoplasm, malignant the resu lts 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> section . ALANINE Routine 08/24/2021 9:43 Metastatic cancer to Res ults for this AMINOTRANSFERASE AM [employer] the peritoneum procedure are in Neoplasm, malignant the resu lts 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> section . BILIRUBIN TOTAL Routine 08/24/2021 9:43 Metastatic cancer to Results for this AM [employer] the peritoneum procedure are in Neoplasm, malignant the resu lts 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> section . BASIC METABOLIC PANEL, Routine 08/24/2021 9:43 Metastatic can cer to CALCIUM TOTAL AM [employer] the peritoneum 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> COMPLETE BLOOD COUNT W/ Routine 08/24/2021 9:43 Metastatic ca ncer to DIFFERENTIAL AM [employer] the peritoneum 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> CANCER ANTIGEN 125 Routine 08/24/2021 9:43 Metastatic cancer to Results for this AM [employer] the peritoneum procedure are in Neoplasm, malignant the resu lts 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> section . URINALYSIS MICROSCOPIC Routine 08/24/2021 9:00 R esults for this AM [employer] procedure are i n the results section. URINALYSIS WITH Routine 08/24/2021 9:00 Metastatic cancer to Results for this MICROSCOPIC IF AM [employer] the peritoneum procedure are in INDICATED Neoplasm, malignant the resu lts 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> section . US UPPER EXTREMITY Routine 08/15/2021 1:55 Malignant neoplasm of Results for this LIMITED LEFT PM [employer] unspecified ovar y procedure are in Mass of muscle of the result s left upper limb section. PAIN MANAGEMENT Routine 08/03/2021 2:08 Results for this FLUOROSCOPY PM [employer] procedure are i n the results section. URINALYSIS MICROSCOPIC Routine 07/29/2021 2:28 R esults for this PM [employer] procedure are i n the results section. URINALYSIS WITH Routine 07/29/2021 2:28 Abnormal urinalysis R esults for this MICROSCOPIC IF PM [employer] procedure are in INDICATED the results section. URINE CULTURE Routine 07/29/2021 2:28 Abnormal urinalysis Res ults for this PM [employer] procedure are i n the results section. URINALYSIS MICROSCOPIC Routine 07/29/2021 9:58 R esults for this AM [employer] procedure are i n the results section. CALCIUM LEVEL TOTAL Routine 07/29/2021 9:58 Malignant neoplas m of Results for this AM [employer] unspecified ovar y procedure are in Metastatic cancer to the res ults the peritoneum section. .GLOMERULAR FILTRATION Routine 07/29/2021 9:58 Malignant neop lasm of Results for this RATE AM [employer] unspecified ovar y procedure are in Metastatic cancer to the res ults the peritoneum section. SERUM CREATININE Routine 07/29/2021 9:58 Malignant neoplasm o f Results for this AM [employer] unspecified ovar y procedure are in Metastatic cancer to the res ults the peritoneum section. ELECTROLYTE PANEL Routine 07/29/2021 9:58 Malignant neoplasm of Results for this AM [employer] unspecified ovar y procedure are in Metastatic cancer to the res ults the peritoneum section. BLOOD UREA NITROGEN Routine 07/29/2021 9:58 Malignant neoplas m of Results for this AM [employer] unspecified ovar y procedure are in Metastatic cancer to the res ults the peritoneum section. GLUCOSE LEVEL Routine 07/29/2021 9:58 Malignant neoplasm of R esults for this AM [employer] unspecified ovar y procedure are in Metastatic cancer to the res ults the peritoneum section. MANUAL DIFFERENTIAL Routine 07/29/2021 9:58 Malignant neoplas m of Results for this AM [employer] unspecified ovar y procedure are in Metastatic cancer to the res ults the peritoneum section. Results CBC Routine 07/29/2021 9:58 Malignant neoplasm of Re sults for this AM [employer] unspecified ovar y procedure are in Metastatic cancer to the res ults the peritoneum section. URINALYSIS WITH Routine 07/29/2021 9:58 Malignant neoplasm of Results for this MICROSCOPIC IF AM [employer] unspecified ovar y procedure are in INDICATED Metastatic cancer to the res ults the peritoneum section. MAGNESIUM LEVEL Routine 07/29/2021 9:58 Malignant neoplasm of Results for this AM [employer] unspecified ovar y procedure are in Metastatic cancer to the res ults the peritoneum section. ASPARTATE Routine 07/29/2021 9:58 Malignant neoplasm of Re sults for this AMINOTRANSFERASE AM [employer] unspecified ova ry procedure are in Metastatic cancer to the res ults the peritoneum section. ALANINE Routine 07/29/2021 9:58 Malignant neoplasm of Re sults for this AMINOTRANSFERASE AM [employer] unspecified ova ry procedure are in Metastatic cancer to the res ults the peritoneum section. BILIRUBIN TOTAL Routine 07/29/2021 9:58 Malignant neoplasm of Results for this AM [employer] unspecified ovar y procedure are in Metastatic cancer to the res ults the peritoneum section. BASIC METABOLIC PANEL, Routine 07/29/2021 9:58 Malignant neop lasm of CALCIUM TOTAL AM [employer] unspecified ovar y 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 COMPLETE BLOOD COUNT W/ Routine 07/29/2021 9:58 Malignant thierno plasm of DIFFERENTIAL AM [employer] unspecified ovar y 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 CANCER ANTIGEN 125 Routine 07/29/2021 9:58 Malignant neoplasm of Results for this AM [employer] unspecified ovar y procedure are in Metastatic cancer to the res ults the peritoneum section. CT CHEST ABDOMEN PELVIS Routine 07/27/2021 1:59 Malignant thierno plasm of Results for this W CONTRAST PM [employer] unspecified ovar y procedure are in Metastatic cancer to the res ults the peritoneum section. POC CREATININE Routine 07/27/2021 1:09 Results f or this PM [employer] procedure are i n the results section. URINE CULTURE Routine 07/08/2021 9:43 Dysuria Results fo r this AM [employer] procedure are i n the results section. CALCIUM LEVEL TOTAL Routine 07/08/2021 9:21 Malignant neoplas m of Results for this AM [employer] unspecified ovar y procedure are in Metastatic cancer to the res ults the peritoneum section. .GLOMERULAR FILTRATION Routine 07/08/2021 9:21 Malignant neop lasm of Results for this RATE AM [employer] unspecified ovar y procedure are in Metastatic cancer to the res ults the peritoneum section. SERUM CREATININE Routine 07/08/2021 9:21 Malignant neoplasm o f Results for this AM [employer] unspecified ovar y procedure are in Metastatic cancer to the res ults the peritoneum section. ELECTROLYTE PANEL Routine 07/08/2021 9:21 Malignant neoplasm of Results for this AM [employer] unspecified ovar y procedure are in Metastatic cancer to the res ults the peritoneum section. BLOOD UREA NITROGEN Routine 07/08/2021 9:21 Malignant neoplas m of Results for this AM [employer] unspecified ovar y procedure are in Metastatic cancer to the res ults the peritoneum section. GLUCOSE LEVEL Routine 07/08/2021 9:21 Malignant neoplasm of R esults for this AM [employer] unspecified ovar y procedure are in Metastatic cancer to the res ults the peritoneum section. MANUAL DIFFERENTIAL Routine 07/08/2021 9:21 Malignant neoplas m of Results for this AM [employer] unspecified ovar y procedure are in Metastatic cancer to the res ults the peritoneum section. Results CBC Routine 07/08/2021 9:21 Malignant neoplasm of Re sults for this AM [employer] unspecified ovar y procedure are in Metastatic cancer to the res ults the peritoneum section. MAGNESIUM LEVEL Routine 07/08/2021 9:21 Malignant neoplasm of Results for this AM [employer] unspecified ovar y procedure are in Metastatic cancer to the res ults the peritoneum section. ASPARTATE Routine 07/08/2021 9:21 Malignant neoplasm of Re sults for this AMINOTRANSFERASE AM [employer] unspecified ova ry procedure are in Metastatic cancer to the res ults the peritoneum section. ALANINE Routine 07/08/2021 9:21 Malignant neoplasm of Re sults for this AMINOTRANSFERASE AM [employer] unspecified ova ry procedure are in Metastatic cancer to the res ults the peritoneum section. BILIRUBIN TOTAL Routine 07/08/2021 9:21 Malignant neoplasm of Results for this AM [employer] unspecified ovar y procedure are in Metastatic cancer to the res ults the peritoneum section. BASIC METABOLIC PANEL, Routine 07/08/2021 9:21 Malignant neop lasm of CALCIUM TOTAL AM [employer] unspecified ovar y 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 COMPLETE BLOOD COUNT W/ Routine 07/08/2021 9:21 Malignant thierno plasm of DIFFERENTIAL AM [employer] unspecified ovar y 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 CANCER ANTIGEN 125 Routine 07/08/2021 9:21 Malignant neoplasm of Results for this AM [employer] unspecified ovar y procedure are in Metastatic [...] the res ults the peritoneum section. after 02/10/2021 Results .Serum Creatinine (01/27/2022 9:33 AM CDT)Only the most recent of15 results within the time period is included. athologist Signature Creatinine 0.66 0.51 - 0.95 [facility] mg/dL Comment: Testing performed at [facility], [address] [place] [address] Specimen Anatomical Collection Method Collection Time Receive d Time (Source) Location / / Volume Laterality Blood 01/27/2022 9:33 01/27/2022 AM CDT 9:35 AM CDT Nick DAILEY LAB BLOOD ORDERABLES Performing Organization Address City/State/ZIP Code Phon e Number [address] (ABNORMAL) .CBC (01/27/2022 9:33 AM CDT)Only the most recent of15 resultswithin the time period is included. athologist Signature WBC 6.6 4.0 - 11.0 [facility] K/uL Comment: All components of the CBC perfo rmed at [facility], [address] [place] [address] RBC 3.80 (L) 4.00 - 5.50 M/uL [facility] Comment: As part of CBC testing performe d at [facility], [address] [place] [address] Hgb 10.7 (L) 12.0 - 16.0 gm/dL [facility] Webb Comment: As part of CBC or as an individ ual orderable testing performed at [facility], [address] [place] [address] Hct 33.5 (L) 37.0 - 47.0 % [facility] Comment: As part of CBC or as an individ ual orderable testing performed at [facility], [address] [place] [address] MCV 88 82 - [address] [facility] Comment: As part of CBC testing performe d at [facility], [address] [place] [address] MCH 28.2 27.0 - 31.[address] [facility] Comment: As part of CBC testing performe d at [facility], [address] [place] [address] MCHC 31.9 31.0 - 36.0 gm/dL [facility] Comment: As part of CBC testing performe d at [facility], [address] [place] [address] RDW-SD 48.2 (H) 35.1 - 46.[address] [facility] Comment: As part of CBC testing performe d at [facility], [address] [place] [address] RDW-CV 15.2 12.0 - 15.5 % [facility] Comment: As part of CBC testing performe d at [facility], [address] [place] [address] Platelet count 157 140 - 440 K/uL [facility] AND Comment: As part of CBC or as an individ ual orderable testing performed at [facility], [address] [place] [address] MPV 10.7 (H) 4.0 - 10.[address] [facility] Comment: As part of CBC testing performe d at [facility], [address] [place] [address] Specimen Anatomical Collection Method Collection Time Receive d Time (Source) Location / / Volume Laterality Blood 01/27/2022 9:33 01/27/2022 AM CDT 9:35 AM CDT Nick DAILEY LAB BLOOD ORDERABLES Performing Organization Address City/State/ZIP Code Phon e Number [facility] [place] [address] [place] [address] Glomerular Filtration Rate (01/27/2022 9:33 AM CDT)Only the most recent of15 resultswithin the time period is included. P athologist Signature eGFR-AA 93 >=60 [facility] mL/min/1.73 sq. m Comment: Normal eGFR >= 60 mL/min/1.73 m2 Note: The eGFR is calculated using the C KD-EPI equation. The eGFR declines with age. eGFR <60 mL/min/1.73 m2 is considered as "decreased". This equation should only be used for patients 18 and older. According to the National [employer] ion's Kidney Disease Outcome Quality Initiative (KDOQI) classification and 2012 Kidney Disease Improving Global Outcomes (KDIGO) Clinical Practice Guideline, the stage of CKD should be categorized based on estimated GFR. Stage Description GFR mL/min/1. 73 m2 1 Normal or high GFR >=90 2 Mildly decreased GFR 60-89 3a Mildly to moderately decreased GFR 45-59 3b Moderately to severely decreased GFR 30-44 4 Severely decreased GFR 15-29 5 Kidney failure <15 Testing performed at [facility], [address] [place] [id number] eGFR-GERBER 80 >=60 mL/min/1.73 sq. m [facility] Comment: Normal eGFR >= 60 mL/min/1.73 m2 Note: The eGFR is calculated using the C KD-EPI equation. The eGFR declines with age. eGFR <60 mL/min/1.73 m2 is considered as "decreased". This equation should only be used for patients 18 and older. According to the National [employer] ion's Kidney Disease Outcome Quality Initiative (KDOQI) classification and 2012 Kidney Disease Improving Global Outcomes (KDIGO) Clinical Practice Guideline, the stage of CKD should be categorized based on estimated GFR. Stage Description GFR mL/min/1. 73 m2 1 Normal or high GFR >=90 2 Mildly decreased GFR 60-89 3a Mildly to moderately decreased GFR 45-59 3b Moderately to severely decreased GFR 30-44 4 Severely decreased GFR 15-29 5 Kidney failure <15 Testing performed at [facility], [address] [place] [address] Specimen Anatomical Collection Method Collection Time Receive d Time (Source) Location / / Volume Laterality Blood 01/27/2022 9:33 01/27/2022 AM CDT 9:35 AM CDT Nick DAILEY LAB BLOOD ORDERABLES Performing Organization Address City/State/ZIP Code Phon e Number [place] [id number] [place] [address] (ABNORMAL) Differential (01/27/2022 9:33 AM CDT)Only the most recent of15 resultswithin the time period is included. athologist Signature Neutrophil % 57.4 42.0 - 66.0 [facility] Comment: All components of the Different ial performed at [facility], [address] [place] [address] Lymphocyte % 26.9 24.0 - 44.0 % [facility] Comment: As part of Differential, testin g performed at [facility], [address] [place] [address] Monocyte % 10.5 (H) 2.0 - 7.0 % [facility] Comment: As part of Differential, testin g performed at [facility], [address] [place] [address] Eosinophil % 4.9 (H) 1.0 - 4.0 % [facility] Comment: As part of Differential, testin g performed at [facility], [address] [place] [address] Basophil % 0.3 0.0 - 1.0 % [facility] Comment: As part of Differential, testin g performed at [facility], [address] [place] [address] Neutrophil Abs 3.78 1.70 - 7.30 K/uL [facility] Comment: As part of Differential, testin g performed at [facility], [address] [place] [address] Lymphocyte Abs 1.77 1.00 - 4.80 K/uL [facility] Comment: As part of Differential, testin g performed at [facility], [address] [place] [address] Monocyte Abs 0.69 0.08 - 0.70 K/uL [facility] Comment: As part of Differential, testin g performed at [facility], [address] [place] [address] Eosinophil Abs 0.32 0.04 - 0.40 K/uL [facility] Comment: As part of Differential, testin g performed at [facility], [address] [place] [address] Basophil Abs 0.02 0.00 - 0.10 K/uL [facility] Comment: As part of Differential, testin g performed at [facility], [address] [place] [address] Specimen Anatomical Collection Method Collection Time Receive d Time (Source) Location / / Volume Laterality Blood 01/27/2022 9:33 01/27/2022 AM CDT 9:35 AM CDT Nick DAILEY LAB BLOOD ORDERABLES Performing Organization Address City/State/ZIP Code Phon e Number [address] (ABNORMAL) [place] 125 (01/27/2022 9:33 AM CDT)Only the most recent of15 results within the time period is included. P athologist Signature [place] 125 124.2 (H) <=38.0 U/mL [facility] Comment: Results greater than 11,500.0 U/L may no t be reliable due to matrix effect with extended dilution as it exceeds the pharmacy director s recommended limit. Caution should be exercised when interpreting such values and done in conjunction with cli nical context. Reference intervals are not available fo r male patients. Results should be interpreted in conjunction with clinical context. This test is measured by electrochemilum inescence immunoassay on Katherine Nilesh immunoassay analyzers. Results obtained in different methods are not interchangeable. Testing performed at [facility], [address] [place] [address] Specimen Anatomical Collection Method Collection Time Receive d Time (Source) Location / / Volume Laterality Blood 01/27/2022 9:33 01/27/2022 AM CDT 9:35 AM CDT Nick DAILEY LAB BLOOD ORDERABLES Performing Organization Address City/[facility]/ZIP Code Phon e Number [address] BUN (01/27/2022 9:33 AM CDT)Only the most recent of15 resultswithin the time period is included. P athologist Signature BUN 10 6 - 23 mg/dL [facility] Comment: Testing performed at [facility], [address] [place] [address] Specimen Anatomical Collection Method Collection Time Receive d Time (Source) Location / / Volume Laterality Blood 01/27/2022 9:33 01/27/2022 AM CDT 9:35 AM CDT Nick DAILEY LAB BLOOD ORDERABLES Performing Organization Address City/[facility]/ZIP Code Phon e Number [address] ALT (01/27/2022 9:33 AM CDT)Only the most recent of15 resultswithin the time period is included. P athologist Signature ALT 8 <=33 U/L [facility] Comment: Testing performed at [facility], [address] [place], [place] [id number] Specimen Anatomical Collection Method Collection Time Receive d Time (Source) Location / / Volume Laterality Blood 01/27/2022 9:33 01/27/2022 AM CDT 9:35 AM CDT Nick DAILEY LAB BLOOD ORDERABLES Performing Organization Address City/[facility] Code Phon e Number [address] AST (01/27/2022 9:33 AM CDT)Only the most recent of15 resultswithin the time period is included. P athologist Signature AST 23 <=32 U/L [facility] Comment: Testing performed at [facility], [address] [place] [address] Specimen Anatomical Collection Method Collection Time Receive d Time (Source) Location / / Volume Laterality Blood 01/27/2022 9:33 01/27/2022 AM CDT 9:35 AM CDT Nick DAILEY LAB BLOOD ORDERABLES Performing Organization Address City/State/[place] [address] [place] [address] Magnesium (01/27/2022 9:33 AM CDT)Only the most recent of15 resultswithin the time period is included. athologist Signature Magnesium 1.8 1.6 - 2.[address] [facility] mg/dL Comment: Testing performed at [facility], [address] [place] [id number] Specimen Anatomical Collection Method Collection Time Receive d Time (Source) Location / / Volume Laterality Blood 01/27/2022 9:33 01/27/2022 AM CDT 9:35 AM CDT Nick DAILEY LAB BLOOD ORDERABLES Performing Organization Address City/[facility]/[place] [address] [place] [address] Glucose Level (01/27/2022 9:33 AM CDT)Only the most recent of15 resultswithin the time period is included. athologist Signature Glucose Level 77 70 - 99 [facility] mg/dL Comment: Effective 03/15/16, the glucose reference intervals have been updated based on [place] [employer] guidelines (Standards of Medical Care in Diabetes 2016. Diabetes Care 2016; 39: S13-S22). Fasting blood glucose: Normal: 70-99 mg/dL Impaired fasting glucose (increased risk for diabetes or pre-diabetes): 100- 125 mg/dL Diabetes mellitus: >/=126 mg/dL Random blood glucose: Normal: 70-199 mg/dL Note: Random glucose >100 mg/dL is assoc iated with increased risk for diabetes Testing performed at [facility], [address] [place] [id number] Specimen Anatomical Collection Method Collection Time Receive d Time (Source) Location / / Volume Laterality Blood 01/27/2022 9:33 01/27/2022 AM CDT 9:35 AM CDT Nick DAILEY LAB BLOOD ORDERABLES Performing Organization Address City/[facility]/ZIP Code Phon e Number [address] Calcium Level (01/27/2022 9:33 AM CDT)Only the most recent of15 resultswithin the time period is included. athologist Signature Calcium Lvl 9.3 8.4 - 10.2 [facility] mg/dL Comment: Testing performed at [facility], [address] [place] [address] Specimen Anatomical Collection Method Collection Time Receive d Time (Source) Location / / Volume Laterality Blood 01/27/2022 9:33 01/27/2022 AM CDT 9:35 AM CDT Nick DAILEY LAB BLOOD ORDERABLES Performing Organization Address City/[facility] Code Phon e Number [address] Bilirubin, total (01/27/2022 9:33 AM CDT)Only the most recent of15 results within the time period is included. athologist Signature Bili Total <0.3 <=1.2 mg/dL [facility] Comment: Indocyanine Green (ICG) may cause falsel y elevated bilirubin results. Total and direct bilirubin must not be measured from samples containing indocyanine green. False elevation of total bilirubin can b e seen in patients with IgG concentrations above 28 g/L. Testing performed at [facility], [address] [place] [address] Specimen Anatomical Collection Method Collection Time Receive d Time (Source) Location / / Volume Laterality Blood 01/27/2022 9:33 01/27/2022 AM CDT 9:35 AM CDT Nick DAILEY LAB BLOOD ORDERABLES Performing Organization Address City/[facility]/ZIP Code Phon e Number [place] [phone] [place] [address] Electrolyte Panel (01/27/2022 9:33 AM CDT)Only the most recent of15 results within the time period is included. athologist Signature Sodium Lvl 139 136 - 145 [facility] mEq/L Comment: Testing performed at [facility], [address] [place] [address] Potassium Lvl 4.7 3.5 - 5.1 mEq/L [facility] Comment: Testing performed at [facility], [address] [place] [address], [place] [id number] Chloride 106 98 - 107 mEq/L [facility] Comment: Testing performed at [facility], [address] [place], [place] [id number] CO2 24 22 - 29 mEq/L [facility] Comment: Testing performed at [facility], [address] [place], [place] [id number] Anion Gap 9 4 - 14 mEq/L [facility] Comment: Testing performed at [facility], [address] [place] [address] Specimen Anatomical Collection Method Collection Time Receive d Time (Source) Location / / Volume Laterality Blood 01/27/2022 9:33 01/27/2022 AM CDT 9:35 AM CDT Nick DAILEY LAB BLOOD ORDERABLES Performing Organization Address City/State/ZIP Code Phon e Number [address] chest abdomen pelvis w contrast (01/17/2022 8:06 PM CDT)Only the most recent of4 resultswithin the time period is included. Anatomical Region Laterality Modality Abdomen, Pelvis, Chest Computed Tomograp hy Specimen (Source) Anatomical Collection Method Collection Time Re ceived Time Location / / Volume Laterality 01/18/2022 5:28 PM CDT Impressions 01/18/2022 7:39 PM CDT 1. Slight increase in size of the comp michelle cystic-solid pelvic mass, compared to 10/04/2021. In particular, the left lateral wall solid component appears increased in the interim. 2. Previously noted tiny nonocclusive thrombus in the right internal jugular vein adjacent to the port catheter is decreased compared to prior study. Other findings as described above. 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 Findings: CT chest No enlarged thoracic nodes. No enlarged pulmonary nodules. Previousl y noted tiny punctate pulmonary nodules remain stable. No pleural effusions. Tip of the right-sided Port-A-Cath is ne ar the superior cavoatrial junction. Previously noted tiny nonocclusive thrombus in the right internal jugular vein adjacent to the catheter is smaller compared to prior study. CT abdomen and pelvis No new suspicious lesions in the liver, spleen, pancreas. Nodular thickening in the adrenals remai n unchanged since prior studies. Gallbladder is intact. No biliary dilatation. No hydronephrosis. Tiny, too small to characterize renal hypodensities. No collections in the pelvis. No dilated bowel loops. No ascites. Small hiatal hernia. Parastomal hernia c ontaining bowel loops, without evidence of bowel obstruction. The mixed solid cystic pelvic mass as in creased in size slightly. For example, one component of the tumor measures 7.8 x 5.9 cm, previously 7.2 x 5.2 cm. In particular, the solid components also appear increased in the interim. For example, the left lateral solid component measures 4 x 2.4 cm, previously 3.4 x 1.8 cm [image [id number]]. Previously noted subtle peritoneal hazin ess in the left upper quadrant remains unchanged since prior study and can be observed in the routine follow-up studies. 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 Findings: CT chest No enlarged thoracic nodes. No enlarged pulmonary nodules. Previousl y noted tiny punctate pulmonary nodules remain stable. No pleural effusions. Tip of the right-sided Port-A-Cath is ne ar the superior cavoatrial junction. Previously noted tiny nonocclusive thrombus in the right internal jugular vein adjacent to the catheter is smaller compared to prior study. CT abdomen and pelvis No new suspicious lesions in the liver, spleen, pancreas. Nodular thickening in the adrenals remai n unchanged since prior studies. Gallbladder is intact. No biliary dilatation. No hydronephrosis. Tiny, too small to characterize renal hypodensities. No collections in the pelvis. No dilated bowel loops. No ascites. Small hiatal hernia. Parastomal hernia c ontaining bowel loops, without evidence of bowel obstruction. The mixed solid cystic pelvic mass as in creased in size slightly. For example, one component of the tumor measures 7.8 x 5.9 cm, previously 7.2 x 5.2 cm. In particular, the solid components also appear increased in the interim. For example, the left lateral solid component measures 4 x 2.4 cm, previously 3.4 x 1.8 cm [image 186]. Previously noted subtle peritoneal hazin ess in the left upper quadrant remains unchanged since prior study and can be observed in the routine follow-up studies. IMPRESSION: 1. Slight increase in size of the compl ex cystic-solid pelvic mass, compared to 10/04/2021. In particular, the left lateral wall solid component appears increased in the interim. 2. Previously noted tiny nonocclusive t hrombus in the right internal jugular vein adjacent to the port catheter is decreased compared to prior study. Other findings as described above. Adriane DAILEY [facility] CT ORDERABLES POC Creatinine (01/17/2022 5:52 PM CDT)Only the most recent of3 resultswithin the time period is included. athologist Signature POC Crea 0.8 0.6 - 1.3 [facility] mg/dL Comment: Medications, especially hydroxyurea or s upplements, such as ascorbate, can interfere with test results causing a falsely and significantly higher result than expected. If a problem is suspected with a patient's result, a sample should be sent to the laboratory for confirmatory testing. Method description: The i-STAT is an josé lyzer used for in vitro quantification of various analytes in whole blood. The device uses a single disposable cartridge which contains microfabricated sensors, a calibration solution, fluidics system, and a waste chamber. Each test cartridge contains ch emically sensitive biosensors on a silicon chip that are configured to perform specific tests. The microfabricated sensors measure analyte concentration by an electrochemical assay. POC eGFR-AA 77 >=60 mL/min/1.73 m2 POC [facility] Comment: Normal eGFR >= 60 mL/min/1.73 m2 The eGFR is calculated using the CKD-EPI equation. The eGFR declines with age. eGFR <60 mL/min/1.73 m2 is considered as "decreased" This equation should only be used for patients 18 and older. According to the National Kidney Found[employer] ion's Kidney Disease Outcome Quality Initiative (KDOQI) classification and 2012 Kidney Disease Improving Global Outcomes (KDIGO) Clinical Practice Guideline, the stage of CKD should be categorized based on estimated GFR. Stage Description GFR mL/min/1.73 m2 1 Kidney damage with normal or high GFR >=90 2 Kidney damage with mild decrease in GF R 60-89 3a Mild to moderate decrease in GFR 45-59 3b Moderate to severe decrease in GFR 30-44 4 Severe decrease in GFR 15-29 5 Kidney failure <15 (or dialysis) POC eGFR-GERBER 67 >=60 mL/min/1.73 m2 POC [facility] Comment: Normal eGFR >= 60 mL/min/1.73 m2 The eGFR is calculated using the CKD-EPI equation. The eGFR declines with age. eGFR <60 mL/min/1.73 m2 is considered as "decreased" This equation should only be used for patients 18 and older. According to the National Kid[employer] ion's Kidney Disease Outcome Quality Initiative (KDOQI) classification and 2012 Kidney Disease Improving Global Outcomes (KDIGO) Clinical Practice Guideline, the stage of CKD should be categorized based on estimated GFR. Stage Description GFR mL/min/1.73 m2 1 Kidney damage with normal or high GFR >=90 2 Kidney damage with mild decrease in GF R 60-89 3a Mild to moderate decrease in GFR 45-59 3b Moderate to severe decrease in GFR 30-44 4 Severe decrease in GFR 15-29 5 Kidney failure <15 (or dialysis) POC Clean Dev Yes POC [facility] Performing Lab [facility] POC [facility] R Comment: [facility], [address], [place] [address]; Lab Direct or: Isabelle Padilla MD Specimen Anatomical Collection Method Collection Time Receive d Time (Source) Location / / Volume Laterality Blood 01/17/2022 5:52 01/17/2022 PM CDT 5:52 PM CDT Adriane DAILEY POCT ORDERABLES - DEVICE Performing Organization Address City/State/ZIP Code Phon e Number POC [facility] (ABNORMAL) Urinalysis with Microscopic (11/04/2021 8:45 AM CDT)Only the most recent of11 resultswithin the time period is included. athologist Signature UA WBC 5-10 (A) 0 - 2 /HPF [facility] Comment: All components of UA Microscopi c Exam performed at [facility], [address] [place] [address] UA RBC 0-2 0 - 2 /HPF [facility] Comment: As part of the UA Microscopic E xam performed at [facility], [address] [place] [address] UA Mucous TRACE Not Seen-Trace /HPF [facility] Comment: As part of the UA Microscopic E xam performed at [facility], [address] [place] [address] UA Bacteria NOT SEEN NOT SEEN /HPF [facility] Comment: As part of the UA Microscopic E xam performed at [facility], [address] [place] [address] UA Squam Epi OCC None-Occasional /HPF [facility] Comment: As part of the UA Microscopic E xam performed at [facility], [address] [place] [address] UA Amorph Leesa OCC (A) NOT SEEN /HPF [facility] Comment: As part of the UA Microscopic E xam performed at [facility], [address] [place] [address] Specimen Anatomical Collection Method Collection Time Receive d Time (Source) Location / / Volume Laterality Urine 11/04/2021 8:45 11/04/2021 AM CDT 8:59 AM CDT Narrative [facility] - 11/04/2021 9:22 AM CDT Some reporting parameters within the Urinalysis test have changed due to the implementation of new instrumentation in the [facility], allowing greater sensitivity of measurement. Urinalysis results rep orted by the [facility] using existing instrumentation, as well as Urinalysis t esting performed manually or by backup methodology at the [facility] will remain relatively unchanged. New reporting parameters and units will now be reported for all [facility]. Nick DAILEY URINE ORDERABLES Performing Organization Address City/State/ZIP Code Phon e Number [address] (ABNORMAL) Urinalysis w/Microscopic if Indicated (11/04/2021 8:45 AM CDT)Only the most recent of11 resultswithin the time period is included. athologist Signature UA Color Light Straw-Gillespie [facility] Yellow ow Comment: All components of UA Macroscopi c performed at [facility], [address] [place] [address] UA Appear Clear Clear [facility] Comment: As part of the UA Macroscopic p erformed at [facility], [address] [place] [address] UA Glucose NEG NEG mg/dL [facility] Comment: As part of the UA Macroscopic p erformed at [facility], [address] [place] [address] UA Bili NEG NEG [facility] Comment: As part of the UA Macroscopic p erformed at [facility], [address] [place] [address] UA Ketones NEG NEG mg/dL [facility] Comment: As part of UA Macroscopic or as an individual orderable testing performed at [facility], [address] [place] [address] UA Spec Grav 1.015 1.003 - 1.035 [facility] Comment: As part of UA Macroscopic or as an individual orderable testing performed at [facility], [address] [place] [address] UA Blood NEG NEG [facility] Comment: As part of the UA Macroscopic p erformed at [facility], [address] [place] [address] UA pH 6.5 5.0 - 9.0 [facility] Comment: As part of UA Macroscopic or as an individual orderable testing performed at [facility], [address] [place] [address] UA Protein NEG NEG mg/dL [facility] Comment: As part of the UA Macroscopic p erformed at [facility], [address] [place] [address] UA Urobilinogen NEG NEG [facility] Comment: As part of the UA Macroscopic p erformed at [facility], [address] [place] [address] UA Nitrite NEG NEG [facility] Comment: As part of the UA Macroscopic p erformed at [facility], [address] [place] [address] UA Leuk Est Moderate (A) NEG [facility] Comment: As part of the UA Macroscopic p erformed at [facility], [address] [place] [address] Specimen Anatomical Collection Method Collection Time Receive d Time (Source) Location / / Volume Laterality Urine 11/04/2021 8:45 11/04/2021 AM CDT 8:59 AM CDT Nick DAILEY URINE ORDERABLES Performing Organization Address City/State/ZIP Code Phon e Number [address] Urine Culture (09/14/2021 1:53 AM FISH AND WILDLIFE BIOLOGIST)Only the most recent of5 resultswithin the time period is included. Component Value Ref Test Analysis Performed At [facility] gist Range Method Time Signature Final Report No growth [facility] Path Review - The results have been review ed and electronically signed by Pathologist: [place] [facility]rine Diana Rose MD, PhD #[id number] [facility] Specimen Anatomical Collection Method Collection Time Receive d Time (Source) Location / / Volume Laterality Urine, Clean 09/14/2021 1:53 2021 Catch AM FISH AND WILDLIFE BIOLOGIST 9:08 PM FISH AND WILDLIFE BIOLOGIST Nick DAILEY MICROBIOLOGY - GENERAL ORDER [place]OW[place] Performing Organization Address City/State/ZIP Code Phon e Number [facility] Unless otherwise noted, [place] [address] [place] all lab tests performed by: Division of Pathology and Laboratory Medicine [address] [place], [place] [address]d US Upper Extremity Limited Left (08/15/2021 1:55 PM FISH AND WILDLIFE BIOLOGIST) Anatomical Region Laterality Modality Arm, Extremity Left Ultrasound Specimen (Source) Anatomical Collection Method Collection Time Re ceived Time Location / / Volume Laterality 08/15/2021 1:57 PM FISH AND WILDLIFE BIOLOGIST Impressions 08/15/2021 2:10 PM FISH AND WILDLIFE BIOLOGIST Palpable abnormality corresponds to a sm all intramuscular mass, with 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 This may be confirmed with MRI, as clinically warranted. Narrative 08/15/2021 2:10 PM FISH AND WILDLIFE BIOLOGIST FULL RESULT: Examination: US UPPER EXTREMITY LIMITED [...] lipoma. Procedure Note Eric Prince MD - 08/15/2021Formatt ing of this note might be different from the original. FULL RESULT: Examination: US UPPER EXTREMITY LIMITED [...] be confirmed with MRI, as clinically warranted. Almita Batres MD IMG US ORDERABLES Pain Management Fluoroscopy (08/03/2021 2:08 PM FISH AND WILDLIFE BIOLOGIST) Specimen (Source) Anatomical Location Collection Method / Collectio n Time Received Time / Laterality Volume Narrative Systemgenerated, Documentation - 021 2:08 PM FISH AND WILDLIFE BIOLOGIST This procedure requires no interpretatio n from the radiologist. Jacek Kimball MD IMG NON DI ORDERABLES MRI Lumbar Spine without Contrast (05/07/2021 7:55 AM CDT) Anatomical Region Laterality Modality L-spine, Spine Magnetic Resonance Specimen (Source) Anatomical Collection Method Collection Time Re ceived Time Location / / Volume Laterality 05/07/2021 10:21 AM CDT Impressions 05/07/2021 10:34 AM CDT No acute change chronic spondylotic changes. No acute fracture or manifestation of acute metastatic process. Narrative 05/07/2021 10:34 AM CDT FULL RESULT: Examination: MRI LUMBAR SPINE WO CONTRAS T, 05/07/2021 7:55 AM Clinical History: Chronic back [...] present. Procedure Note Ruddy Matta MD - 05/07/2021Forma tting of this note might be different from the original. FULL RESULT: Examination: MRI LUMBAR SPINE KHRIS [...] fracture or manifestation of acute metastatic process. Jacek Kimball MD IMG MRI ORDERABLES after 02/10/2021 Insurance Payer Benefit Plan / Subscriber ID Effective Phone Address T ype Group Dates [facility] MEDICARE [id number] 2020-Prese [address] [address] Medicare HEALTHCARE ADVANTAGE [place], [place] [id number] Care Teams [place] Supervisor Relationship Specialty Start Date End Date Mayte Kaur, PCP - External Obstetrics/Gynecology 06/03/20 Referring Almita Batres, PCP - General Gynecological Oncology 06/07/20 [facility] [place] [address]
--- OUTSIDE RECORDS SUMMARY | 2022-02-10 09:12 | XMS REPORT | Continuity of Care Document ---
:1935 Author Organization [facility] t Address [address] [place] [address] Care Team Providers Name Role Phone [phone] Primary Care Physician Unavailable SYSTEM, NOT IN Attending Clinician Unavailable Marah BELTRAN, May Attending Clinician Alessio DAILEY Attending Clinician Debbie BELTRAN, M Attending Clinician Unavailable Chris Batres MD Attending Clinician Aisha Parrish MD Attending Clinician Isaias DAILEY Attending Clinician ALESSIO Attending Clinician Unavailable Chris BATRES Attending Clinician Unavailable Aisha PARRISH Attending Clinician Unavailable Bobo Benton MD Attending Clinician Jonathon Rao MD Attending Clinician Bobo BENTON Attending Clinician Unavailable Coyle RN, I Attending Clinician Unavailable Teri BELTRAN, L Attending Clinician Unavailable Andrea MENDEZ Attending Clinician ISAIAS Attending Clinician Unavailable Roxanna MENDEZ Attending Clinician Azalia Melo Attending Clinician Azalia ADAMS Attending Clinician Unavailable Tracey Terry RN Attending Clinician Unavailable GIOVANNY Attending Clinician Unavailable Marcio GAFFNEY Attending Clinician Unavailable Javier GAGNON Attending Clinician Unavailable Marcio GAFFNEY Admitting Clinician Unavailable Payers Payer Name Policy Type Policy Number Effective Date Expiration Date S ource MEDICARE PART A AND [id number] 1988 B 00:00:00 [facility] [id number] 2019 NON CONTRACTED 00:00:00 Problems Condition Condition Condition Status Onset Resolution Last Treating Co mments Source Name Details Category Date Date Treatment Clinician Date Mass of Mass of Disease Active 2020-08 Univers muscle of muscle of 2-10 ity of left upper [place] limb limb 00 MD [facility] Encounter Encounter Disease Active Uni vers for for 11-26 ity of examinatio examin[place] prior to n prior to 00 antineopla antineopla An derso stic stic n chemothera chemothera Ca ncer py py Center Other Other Disease Active 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 Center Added automatic ally from request for surgery [id number] Rheumatoid Rheumatoid Disease Active Overview : Univers arthritis arthritis 09-10 Formattin i ty of with with 00:00: g of this [place] rheumatoid rheumatoid 00 note factor of factor of might be An derso unspecifie unspecifie different n d site d site from the Cancer without without original. Cente r organ or organ or Added systems systems automatic involvemen involvemen ally from t t request for surgery [id number] Cardiomega Cardiomega Disease Active 2019-08 U nivers ly ly 2-11 ity of 00:00: [place] 00 MD [facility] Pulmonary Pulmonary Disease Active 2019-08 Uni vers hypertensi hypertensi 2-11 it y of on on 00:00: [place] 00 MD [facility] Metastatic Metastatic Disease Active 2019-08 U nivers cancer to cancer to 2-11 ity of the the 00:00: [place] peritoneum peritoneum 00 MD [facility] Colostomy Colostomy Disease Active 2019-08 Uni vers status status 2-11 ity of 00:00: [place] 00 MD [facility] Frailty Frailty Disease Active 2019-08 Univers 2-11 ity of 00:00: [place] 00 MD [facility] Chronic Chronic Disease Active 2019-08 Univers pain pain 2-11 ity of 00:00: [place] 00 MD [facility] Opioid Opioid Disease Active 2020- Univers abuse abuse 2-11 ity of continuous continuous [place] use use 00 MD Susan broussard [facility] H/O: H/O: Disease Active 2020- Univers pulmonary pulmonary 2-11 ity of embolus embolus 00:00: [place] 00 MD Susan broussard [facility] brand 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 residential Disease Active 2020 Uni vers current current 2-11 ity of use of use of 00:00: [place] anticoagul anticoagul 00 ant ant Susan broussard [facility] Gastroesop Gastroesop Disease Active 2020- U nivjuan hageal hageal 2-11 ity of reflux reflux 00:00: [place] disease disease 00 MD Susan broussard [facility] Herpes Herpes Disease Active 2020- Univers zoster zoster 2-11 ity of 00:00: [place] 00 MD Susan broussard [facility] Deep Deep Disease Active 2019-08 Univers venous venous 2-11 ity of thrombosis thrombosis [place] 00 [place] broussard [facility] Cancer Cancer Disease Active 2020 Univers associated associated 2-11 it y of pain pain 00:00: [place] 00 MD Susan broussard [facility] Coronary Coronary Disease Active 2020 Unive rs atheroscle atheroscle 2-10 it y of rosis of rosis of 00:00: [place] 00 coronary coronary Kevin o artery artery [facility] Essential Essential Disease Active 2020- Uni vers hypertensi hypertensi 2-10 it y of on on 00:00: [place] 00 MD Susan broussard [facility] 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 2-10 it y of emia emia 00:00: [place] 00 MD Susan broussard [facility] Obstructiv Obstructiv Disease Active 2020- U nivers e sleep e sleep 2-10 ity of apnea apnea 00:00: [place] syndrome syndrome 00 MD [facility] Rheumatoid Rheumatoid Disease Active 2020- U nivers arthritis arthritis 2-10 ity of 00:00: [place] 00 MD Susan broussard [facility] Fibromyalg Fibromyalg Disease Active 2019-0 U nivers ia ia 5-06 ity of 00:00: [place] 00 MD [facility] 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 3-04 ity of without without 00:00: [place] obstructio obstructio 00 n or n or Susan gangrene gangrene n [facility] Neoplasm, Neoplasm, Disease Active Uni vers malignant malignant 8-13 ity of of ovary of ovary 00:00: [place] <Bilateral <Bilateral 00 MD > > [facility] [place] Atrial Atrial Disease Active Univers fibrillati fibrillati -12 it y of on on 00:00: [place] 00 MD Susan broussard [facility] Chronic Chronic Disease Active Univers obstructiv obstructiv 02-28 it y of e e 00:00: [place] pulmonary pulmonary 00 disease [facility] Diverticul Diverticul Disease Active U nivers itis of itis of 02-28 ity of colon colon 00:00: [place] 00 MD Susan [facility] [place] Allergies, Adverse Reactions, Alerts Allergy Allergy Status Severity Reaction(s) Onset Inactive Treating Comm ents Source Name Type Date Date Clinician Sulfamet Propensi Active Shortness Of 2019-08 Univers hoxazole ty to Breath 2-11 ity of -Trimeth adverse 00:00: [place] oprim reaction 00 MD ravi broussard [facility] Metoprol Propensi Active Other (See 2019-08 Brachycar Univers ol ty to Comments) 2-11 chelsi, ity of Succinat adverse 00:00: hypotensi [place] reaction 00 on MD [facility] Family History Family Member Diagnosis Comments Start Date Stop Date Source Natural mother Breast cancer Univers ity of Kim [facility] [place] Social History Social Habit Start Date Stop Date Quantity Comments Source Exposure to 2022-01-17 2022-01-27 Not sure [facility] SARS-CoV-2 00:00:00 14:06:00 [facility] Alcohol intake 2022-01-27 2022-01-27 Ex-drinker [facility] 00:00:00 00:00:00 (finding) [facility] Tobacco use and 2020-07-30 2020-07-30 Smokeless tobacco Un iversity of exposure 00:00:00 00:00:00 non-user [facility] Sex Assigned At [birth year] F Universit y of 00:00:00 00:00:00 Kim [facility] Smoking Status Start Date Stop Date Source Never smoked tobacco [facility] Medications Ordered Filled Start Stop Current Ordering Indication Dosage Frequency Signature Comments Components Source Medication Medication Date Date Medication? Clinician (SIG) Name Name cholecalcif Yes 1000U Take 1,000 Univers danny, 6-10 Units by ity of vitamin D3, 10:26: mouth [place] 25 mcg 42 every MD (1,000 morning. Anderso unit) n tablet [facility] [place] docusate Yes 250mg Take 250 Univ ers sodium 6-10 mg by ity of (COLACE) 10:26: mouth [place] 250 mg 42 twice MD capsule daily. Andmayo n [facility] diclofenac Yes Chronic 2g Apply 2 g Univers sodium 6-10 back pain topically ity of (Voltaren) 00:00: to [place] 1 % gel 00 affected MD area(s) 3 Anderso (three) n times a Cancer day. [place] diclofenac Yes Chronic 2g Apply 2 g Univers sodium 6-10 pain topically ity of (Voltaren) 00:00: to [place] 1 % gel 00 affected MD area(s) 4 Anderso (four) n times a Cancer day. [place] pregabalin Yes Chronic TAKE 1 Un paco (LYRICA) 50 3-10 pain CAPSULE BY it y of mg capsule 00:00: MOUTH [place] 00 THREE MD TIMES Anderso DAILY n Cancer Center diclofenac 2021- No Chronic 2g Apply 2 g Univers sodium 3-10 06-10 pain topically ity of (Voltaren) 00:00: 00:00 to [place] 1 % gel 00 :00 affected MD area(s) 4 Anderso (four) n times a Cancer day. [place] pregabalin 2021- No Chronic TAKE 1 U nivers (LYRICA) 50 2-23 03-10 pain CAPSULE BY i ty of mg capsule 00:00: 00:00 MOUTH [place] 00 :00 THREE MD TIMES Anderso DAILY n Cancer Center ciprofloxac 2021- No Dysuria 250mg Take 1 Univers in HCl - 03-18 tablet ity of (Cipro) 250 00:00: 00:00 (250 mg) [place] mg tablet 00 :00 by mouth twice Anderso daily. n Cancer Center ondansetron 2021- No Metastatic 8mg Take 1 Univers (ZOFRAN) 8 08-29 cancer to tablet (8 ity of mg tablet 00:00: 00:00 the mg) by [place] 00 :00 peritoneum mouth MD every 8 Anderso (eight) n hours as Cancer needed for Center nausea or vomiting. ibuprofen 2020-08- No 400mg Take 400 Un paco (ADVIL,MOTR 2-10 12-10 mg by ity of [place]) 200 mg 11:56: 00:00 mouth [place] tablet 13 :00 twice MD daily. [facility] HYDROcodone 2020-08 No Chronic .5{tbl} Take 0.5 Univers -acetaminop 09-29 03-10 back pain tablets by ity of hen (NORCO) 00:00: 00:00 [place] 5 mg-325 mg 00 :00 every 8 MD per tablet (eight) Kevin o hours as n needed for Cancer severe Center pain. pregabalin 2020-08- No Chronic 50mg Take 1 U nivers (LYRICA) 50 09-29- pain capsule ity of mg capsule 00:00: 00:00 (50 mg) by [place] 00 :00 mouth 3 MD (three) Anderso times a n day. Cancer Center pregabalin 2020- No Chronic Take 1 U nivers (LYRICA) 50 05-17 12-10 pain capsule by i ty of mg capsule 00:00: 00:00 mouth [place] 00 :00 twice MD daily Anderso n [facility] Center methocarbam 2021- No Chronic 250mg Take 0.5 Univers ol 04-28 06-10 pain tablets ity of (ROBAXIN) 00:00: 00:00 (250 mg) Pieter as 500 mg 00 :00 by mouth MD tablet every 8 Anderso (eight) n hours as Cancer needed for Center muscle spasms (pain). pregabalin 2020- No Chronic 50mg Take 1 U nivers (LYRICA) 50 04-28 pain capsule ity of mg capsule 00:00: 00:00 (50 mg) by [place] 00 :00 mouth 3 MD (three) Anderso times a n day. [facility] Yes Gastroesoph Take 1 Univers e (NexIUM) 04-22 ageal capsule by it y of 40 MG 00:00: reflux mouth [place] capsule 00 disease daily MD Susan broussard [facility] rivaroxaban Yes Malignant 20mg Take 1 Univers (Xarelto) 03-22 neoplasm of tablet (20 ity of 20 mg 00:00: unspecified mg) by [place] as tablet 00 ovary mouth MD daily. Susan broussard [facility] esomeprazol 2020- No Gastroesoph Take 1 Univers e (NexIUM) 03-20 ageal capsule by i ty of 40 MG 00:00: 00:00 reflux mouth once Pieter as capsule 00 :00 disease daily MD [facility]- No Gastroesoph Take 1 Univers e (NexIUM) 02-15 ageal capsule by i ty of 40 MG 00:00: 00:00 reflux mouth once Pieter as capsule 00 :00 disease daily MD Susan broussard [facility] pregabalin 2020- No Chronic 50mg Take 1 U nivers (LYRICA) 50 02-10 pain capsule ity of mg capsule 00:00: 00:00 (50 mg) by [place] 00 :00 mouth twice Susan daily. n [facility] magnesium 2020- No Hypomagnese Take 1 Univers oxide 02-07 ian tablet by ity of (MAOX) 400 00:00: 00:00 mouth [place] mg tablet 00 :00 twice MD daily Susan broussard [facility] rivaroxaban 2020- No Malignant 20mg Take 1 Univers (Xarelto) 12-24 neoplasm of tablet (20 ity of 20 mg 00:00: 00:00 unspecified mg) [place] tablet 00 :00 ovary mouth daily. Susan broussard [facility] esomeprazol 2020- No Gastroesoph 40mg Take 1 Univers e (NexIUM) 12-24 ageal capsule ity of 40 MG 00:00: 00:00 reflux (40 mg) by Pieter as capsule 00 :00 disease mouth MD daily. Susan broussard [facility] montelukast Yes TAKE 1 Univ ers (SINGULAIR) 3-30 TABLET BY ity of 10 mg 00:00: MOUTH ONCE [place] tablet 00 DAILY MD [facility] pregabalin 2020- No Chronic 50mg Take 1 U nivers (LYRICA) 50 3-23 06-24 pain capsule ity of mg capsule 00:00: 00:00 (50 mg) by [place] 00 :00 mouth twice Andmayo daily. n [facility] [place] ammonium Yes APPLY [facility] lactate 3-07 LOTION ity of (LAC-HYDRIN 00:00: TOPICALLY [place] ) 12% 00 TO MD lotion AFFECTED Anderso AREA TWICE n DAILY Cancer Center lidocaine-p Yes Encounter Apply to [facility] rilocaine 2-08 for [place] ity of (EMLA) 00:00: adjustment h area 30 [place] 2.5-2.5% 00 and to 45 MD cream management minutes [facility] so of vascular prior to n access port Cancer device access as Center directed (topical anesthetic ). pregabalin 2020- No Chronic 25mg Take 1 U nivers (Lyrica) 25 2-08 08-06 back pain capsule ity of mg capsule 00:00: 00:00 (25 mg) by [place] 00 :00 mouth twice Andmayo daily. n [facility] ondansetron 2019-08- No Metastatic Take 1 Univers (Zofran) 8 10-06- cancer to tablet by ity of mg tablet 00:00: 00:00 the mouth [place] 00 :00 peritoneum every 8 MD hours on Anderso days 2, 3, n and 4 Cancer following Center chemothera py, then may take 1 tablet by mouth every 8 hours as needed for nausea or vomiting. prochlorper 2019-08- No Metastatic 10mg Take 1 Univers azine 17 08- cancer to tablet (10 it y of (Compazine) 00:00: 00:00 the mg) by [place] as 10 mg 00 :00 peritoneum mouth MD tablet every 6 Anderso (six) n hours as Cancer needed for Center nausea or vomiting. umeclidiniu Yes 1{puff} Inhale 1 Univers m-vilantero 2-26 puff by ity o f L (Anoro 00:00: mouth [place] Ellipta) 00 every MD 62.5-25 evening. Susan gee/parisa [facility] clonazePAM 2018-0 Yes 1mg Take 1 mg Un paco (KlonoPIN) 8-20 by mouth ity o f 1 mg tablet 00:00: twice [place] 00 daily. MD [facility] Immunizations Ordered Filled Immunization Date Status Comments [facility] e Immunization Name Name Pfizer SARS-CoV-2 2021-04-18 Completed Univers ity of Vaccination 00:00:00 [facility] Vital Signs Vital Name Observation Time Observation Value Comments Source WEIGHT 2021-01-24 09:13:08 52.8 kg WEIGHT 2021-01-21 09:54:00 52.5 kg WEIGHT 2020-12-24 08:53:46 52.3 kg WEIGHT 2020-12-24 08:26:00 52.3 kg WEIGHT 2020-11-26 08:56:00 51.3 kg WEIGHT 2020-10-25 11:52:09 51 kg WEIGHT 2020-09-27 10:27:00 49.3 kg HEIGHT 2020-08-06 09:06:00 152 cm WEIGHT 2020-08-06 09:06:00 49.4 kg Body height 2022-01-27 17:45:00 146 cm [facility] Body weight 2022-01-27 17:45:00 51.1 kg [facility] BMI 2022-01-27 17:45:00 23.97 kg/m2 [facility] Systolic blood 2022-01-27 17:43:00 140 mm[Hg] Univer sity of pressure [facility] Diastolic blood 2022-01-27 17:43:00 84 mm[Hg] Unive rsity of pressure [facility] Heart rate 2022-01-27 17:43:00 73 /min [facility] Body temperature 2022-01-27 17:43:00 36.39 Alysia [facility] ersity of [place] MD [facility] Respiratory rate 2022-01-27 17:43:00 20 /min Univ ersity of [place] [facility] Oxygen saturation in 2021-10-09 17:29:00 97 /min University Arterial blood by Kim bazan Pulse oximetry Cancer Center Procedures Procedure Date / Time Performing Clinician Source Performed CANCER ANTIGEN 125 2022-01-27 14:33:00 Nick Mccallum y [facility] COMPLETE BLOOD COUNT W/ 2022-01-27 14:33:00 Nick Mccallum [facility] [place] DIFFERENTIAL [facility] BASIC METABOLIC PANEL, 2022-01-27 14:33:00 Nick Mccallum [facility] CAL[facility] BILIRUBIN TOTAL 2022-01-27 14:33:00 Nick Mccallum Saffell o [facility] ALANINE AMINOTRANSFERASE 2022-01-27 14:33:00 [facility] ASPART[facility] AMINOTRANSFERASE 2022-01-27 14:33:00 [facility] MAGNESIUM LEVEL 2022-01-27 14:33:00 Nick Mccallum Saffell o f [facility] Results CBC 2022-01-27 14:33:00 Nick Mccallum Saffell o [facility] MANUAL DIFFERENTIAL 2022-01-27 14:33:00 Nick Mccallum [facility] GLUCOSE LEVEL 2022-01-27 14:33:00 Nick Mccallum Saffell o [facility] BLOOD UREA NITROGEN 2022-01-27 14:33:00 Nick Mccallum [facility] ELECTROLYTE PANEL 2022-01-27 14:33:00 Nick Mccallum [facility] SERUM CREATININE 2022-01-27 14:33:00 Nick Mccallum [facility] .GLOMERULAR FILTRATION 2022-01-27 14:33:00 Nick Mccallum [facility] [place] RATE [facility] CALCIUM LEVEL TOTAL 2022-01-27 14:33:00 Nick Mccallum [facility] CT CHEST ABDOMEN PELVIS W 2022-01-18 01:06:45 Adriane Esparza [facility] [place] CONTRAST [facility] POC CREATININE 2022-01-17 22:52:[address] [facility] CANCER ANTIGEN 125 2021-11-04 13:45:[address] [facility] y [facility] COMPLETE BLOOD COUNT W/ 2021-11-04 13:45:00 Nick Mccallum [facility] [place] DIFFERENTIAL [facility] BASIC METABOLIC PANEL, 2021-11-04 13:45:00 [facility]um [facility] [place] CALCIUM TOTAL [facility] BILIRUBIN TOTAL 2021-11-04 13:45:00 Nick Mccallum Saffell o f [facility] Center ALANINE AMINOTRANSFERASE 2021-11-04 13:45:00 Nick Mccallum Uni versity of [facility] ASPARTATE AMINOTRANSFERASE 2021-11-04 13:45:00 [facility] MAGNESIUM LEVEL 2021-11-04 13:45:00 Nick Mccallum Saffell o f [facility] URINALYSIS WITH 2021-11-04 13:45:00 Nick Mccallum Saffell o [facility] MICROSCOPIC IF INDICATED MD Vargas [facility] Results CBC 2021-11-04 13:45:00 Nick Mccallum Saffell o f [facility] Center MANUAL DIFFERENTIAL 2021-11-04 13:45:00 Nick Mccallum [facility] GLUCOSE LEVEL 2021-11-04 13:45:00 Nick Mccallum Saffell o [facility] BLOOD UREA NITROGEN 2021-11-04 13:45:00 Nick Mccallum [facility] ELECTROLYTE PANEL 2021-11-04 13:45:00 Nick Mccallum [facility] SERUM CREATININE 2021-11-04 13:45:00 Nick Mccallum [facility] .GLOMERULAR FILTRATION 2021-11-04 13:45:00 Nick [facility]allum [facility] [place] [facility] CALCIUM LEVEL TOTAL 2021-11-04 13:45:00 Nick Mccallum [facility] URINALYSIS MICROSCOPIC 2021-11-04 13:45:00 [facility]um [facility] CANCER ANTIGEN 125 2021-10-14 19:43:00 [facility] COMPLETE BLOOD COUNT W/ 2021-10-14 19:43:00 Nick Mccallum [facility] [place] DIFFERENTIAL [facility] BASIC METABOLIC PANEL, 2021-10-14 19:43:00 Nick Mccallume [facility] [place] CALCIUM TOTAL [facility] BILIRUBIN TOTAL 2021-10-14 19:43:00 Nick Mccallum Saffell o f [facility] Center ALANINE AMINOTRANSFERASE 2021-10-14 19:43:00 Nick Mccallum Uni versity of [facility] ASPARTATE AMINOTRANSFERASE 2021-10-14 19:43:00 Nick [facility]ccallum [facility] MAGNESIUM LEVEL 2021-10-14 19:43:00 Nick Mccallum Saffell o f [facility] Results CBC 2021-10-14 19:43:00 Nick Mccallum o f [facility] Center MANUAL DIFFERENTIAL 2021-10-14 19:43:00 Nick Mccallum [facility] GLUCOSE LEVEL 2021-10-14 19:43:00 Nick Mccallum Saffell o f [facility] BLOOD UREA NITROGEN 2021-10-14 19:43:00 Nick Mccallum [facility] ELECTROLYTE PANEL 2021-10-14 19:43:00 Nick Mccallum [facility] SERUM CREATININE 2021-10-14 19:43:00 Nick Mccallum [facility] .GLOMERULAR FILTRATION 2021-10-14 19:43:00 Nick [facility]ccallum [facility] [place] RATE [facility] CALCIUM LEVEL TOTAL 2021-10-14 19:43:00 Nick Mccallum [facility] CT CHEST ABDOMEN PELVIS W 2021-10-04 19:16:46 Nick Mccallum [facility] [place] CONTRAST [facility] CANCER ANTIGEN 125 2021-10-04 16:01:00 [facility] Center COMPLETE BLOOD COUNT W/ 2021-10-04 16:01:00 Nick Mccallum [facility] [place] DIFFERENTIAL [facility] BASIC METABOLIC PANEL, 2021-10-04 16:01:00 Nick Mccallum [facility] [place] CALCIUM TOTAL [facility] BILIRUBIN TOTAL 2021-10-04 16:01:00 Nick Mccallum Saffell o f [facility] Center ALANINE AMINOTRANSFERASE 2021-10-04 16:01:00 Nick Mccallum Uni versity of [facility] ASPARTATE AMINOTRANSFERASE 2021-10-04 16:01:00 Nick [facility]ccallum [facility] Center MAGNESIUM LEVEL 2021-10-04 16:01:00 Nikc Mccallum Saffell o f [facility] Center Results CBC 2021-10-04 16:01:00 Nick Mccallum o f [facility] Center MANUAL DIFFERENTIAL 2021-10-04 16:01:00 Nick Mccallum [facility] GLUCOSE LEVEL 2021-10-04 16:01:00 Nick Mccallum o f [facility] BLOOD UREA NITROGEN 2021-10-04 16:01:00 Nick Mccallum [facility] ELECTROLYTE PANEL 2021-10-04 16:01:00 Nick Mccallum [facility] SERUM CREATININE 2021-10-04 16:01:00 Nick Mccallum [facility] .GLOMERULAR FILTRATION 2021-10-04 16:01:00 [facility] [place] [facility] CALCIUM LEVEL TOTAL 2021-10-04 16:01:00 Nick Mccallum [facility] URINALYSIS WITH 2021-09-14 19:53:00 Nick Mccallum Saffell o [facility] MICROSCOPIC IF INDICATED MD Varg[facility] URINALYSIS MICROSCOPIC 2021-09-14 19:53:00 Nick Mccallum [facility] CANCER ANTIGEN 125 2021-09-14 19:50:00 Nick Mccallum [facility] COMPLETE BLOOD COUNT W/ 2021-09-14 19:50:00 Nick Mccallum [facility] [place] DIFFERENTIAL [facility] BASIC METABOLIC PANEL, 2021-09-14 19:50:00 Nick Mccallum [facility] [place] CALCIUM TOTAL [facility] BILIRUBIN TOTAL 2021-09-14 19:50:00 Alessio [facility] o [facility] ALANINE AMINOTRANSFERASE 2021-09-14 19:50:00 [facility] ASPARTATE AMINOTRANSFERASE 2021-09-14 19:50:00 [facility]cc[facility]um [facility] MAGNESIUM LEVEL 2021-09-14 19:50:00 Nikc Mccallum Saffell o [facility] Results CBC 2021-09-14 19:50:00 Nick Mccallum Saffell o [facility] MANUAL DIFFERENTIAL 2021-09-14 19:50:00 Nick Mccallum [facility] GLUCOSE LEVEL 2021-09-14 19:50:00 Nick Mccallum [facility] BLOOD UREA NITROGEN 2021-09-14 19:50:00 Nick Mccallum [facility] ELECTROLYTE PANEL 2021-09-14 19:50:00 Nick Mccallum [facility] SERUM CREATININE 2021-09-14 19:50:00 Nick Mccallum [facility] .GLOMERULAR FILTRATION 2021-09-14 19:50:00 Nick Mccallum [facility] [place] RATE [facility] CALCIUM LEVEL TOTAL 2021-09-14 19:50:00 Nick Mccallum [facility] URINE CULTURE 2021-09-14 07:53:00 Nick Mccallum Saffell o [facility] CANCER ANTIGEN 125 2021-08-24 15:43:00 Viraj Batres [facility] COMPLETE BLOOD COUNT W/ 2021-08-24 15:43:00 [facility] BASIC METABOLIC PANEL, 2021-08-24 15:43:00 [facility] BILIRUBIN TOTAL 2021-08-24 15:43:00 Viraj Batres [facility] ALANINE AMINOTRANSFERASE 2021-08-24 15:43:00 Viraj Batres [facility] ASPARTATE AMINOTRANSFERASE 2021-08-24 15:43:00 Viraj Batres [facility] MAGNESIUM LEVEL 2021-08-24 15:43:00 Viraj Batres [facility] Results CBC 2021-08-24 15:43:00 Viraj Batres [facility] MANUAL DIFFERENTIAL 2021-08-24 15:43:00 [facility]res [facility] GLUCOSE LEVEL 2021-08-24 15:43:00 Viraj Batres [facility] BLOOD UREA NITROGEN 2021-08-24 15:43:00 Viraj Batres [facility] ELECTROLYTE PANEL 2021-08-24 15:43:00 Viraj Batres [facility] SERUM CREATININE 2021-08-24 15:43:00 Viraj Batres [facility] .GLOMERULAR FILTRATION 2021-08-24 15:43:00 [facility] CAL[facility] LEV[facility] TOTAL 2021-08-24 15:43:00 Viraj Batres [facility] URINALYSIS WITH 2021-08-24 15:00:00 Viraj Batres [facility] MICROSCOPIC IF INDICATED MD Vargas [facility] URINALYSIS MICROSCOPIC 2021-08-24 15:00:00 Viraj Batres [facility] US UPPER EXTREMITY LIMITED 2021-08-15 19:55:33 Viraj Batres [facility] LEFT [facility] PAIN MANAGEMENT 2021-08-03 20:08:00 Jozef Mendez [facility] URINE CULTURE 2021-07-29 20:28:00 Alessio [facility] URINALYSIS WITH 2021-07-29 20:28:00 Alessio [facility] o [place] MICROSCOPIC IF INDICATED MD Vargas [facility] URINALYSIS MICROSCOPIC 2021-07-29 20:28:00 Nick Mccallum [facility] CANCER ANTIGEN 125 2021-07-29 15:58:00 Viraj Batres [facility] COMPLETE BLOOD COUNT W/ 2021-07-29 15:58:00 [facility] BASIC METABOLIC PANEL, 2021-07-29 15:58:00 [facility] CAL[facility]UM T[facility] BILIRUBIN TOTAL 2021-07-29 15:58:00 Viraj Batres [facility] ALANINE AMINOTRANSFERASE 2021-07-29 15:58:00 Viraj Batres [facility] ASPARTATE AMINOTRANSFERASE 2021-07-29 15:58:00 Viraj Batres [facility] MAGNESIUM LEVEL 2021-07-29 15:58:00 Viraj Batres [facility] URINALYSIS WITH 2021-07-29 15:58:00 Viraj Batres [facility] MICROSCOPIC IF INDICATED MD Vargas [facility] Results CBC 2021-07-29 15:58:00 Viraj Batres [facility] MANUAL DIFFERENTIAL 2021-07-29 15:58:00 Viraj Batres [facility] GLUCOSE LEVEL 2021-07-29 15:58:00 Viraj Batres [facility] BLOOD UREA NITROGEN 2021-07-29 15:58:00 Viraj Batres [facility] ELECTROLYTE PANEL 2021-07-29 15:58:00 Viraj Batres [facility] SERUM CREATININE 2021-07-29 15:58:00 Viraj Batres [facility] .GLOMERULAR FILTRATION 2021-07-29 15:58:00 Viraj Batres [facility] [place] R[facility] CALCIUM LEVEL TOTAL 2021-07-29 15:58:00 Viraj Batres [facility] URINALYSIS MICROSCOPIC 2021-07-29 15:58:00 Viraj Batres Un iversity of [facility] Center CT CHEST ABDOMEN PELVIS W 2021-07-27 19:59:34 Nick Mccallum [facility] [place] CONTRAST [facility] POC CREATININE 2021-07-27 19:09:00 Nick Mccallum Saffell o [facility] URINE CULTURE 2021-07-08 15:43:14 Nick Mccallum Saffell o [facility] CANCER ANTIGEN 125 2021-07-08 15:21:[address] [facility] y of [facility] COMPLETE BLOOD COUNT W/ 2021-07-08 15:21:00 Nick Mccallum [facility] BASIC METABOLIC PANEL, 2021-07-08 15:21:00 Nick Mccallum [facility] CALCIUM T[facility] BILIRUBIN TOTAL 2021-07-08 15:21:00 Nick Mccallum Saffell o f [facility] ALANINE AMINOTRANSFERASE 2021-07-08 15:21:00 Nick Mccallum Uni versity [facility] ASPARTATE AMINOTRANSFERASE 2021-07-08 15:21:00 [facility]cc[facility]um [facility] MAGNESIUM LEVEL 2021-07-08 15:21:00 Nick Mccallum Saffell o f [facility] Center Results CBC 2021-07-08 15:21:00 Nick Mccallum Saffell o [facility] MANUAL DIFFERENTIAL 2021-07-08 15:21:00 Nick Mccallum [facility] GLUCOSE LEVEL 2021-07-08 15:21:00 Nick Mccallum Saffell o f [facility] BLOOD UREA NITROGEN 2021-07-08 15:21:00 Nick Mccallum [facility] ELECTROLYTE PANEL 2021-07-08 15:21:00 Nick Mccallum [facility] SERUM CREATININE 2021-07-08 15:21:00 Nick Mccallum [facility] .GLOMERULAR FILTRATION 2021-07-08 15:21:00 Nick [facility]ccallum [facility] RATE [facility] CALCIUM LEVEL TOTAL 2021-07-08 15:21:00 Nick Mccallum [facility] URINALYSIS WITH 2021-06-17 17:20:00 Adriane Esparza [facility] MICROSCOPIC IF INDICATED MD Vargas [facility] URINALYSIS MICROSCOPIC 2021-06-17 17:20:00 Adriane Esparza [facility] CANCER ANTIGEN 125 2021-06-17 17:03:00 [facility]LO[facility] W/ 2021-06-17 17:03:00 Adriane Esparza [facility] DIFFERENTIAL [facility] BASIC METABOLIC PANEL, 2021-06-17 17:03:00 Adriane Esparza [facility] CALCIUM TOTAL [facility] BILIRUBIN TOTAL 2021-06-17 17:03:00 Adriane Esparza [facility] ALANINE AMINOTRANSFERASE 2021-06-17 17:03:00 Adriane [facility] ASPARTATE AMINOTRANSFERASE 2021-06-17 17:03:00 Adriane [facility] MAGNESIUM LEVEL 2021-06-17 17:03:00 Adriane Esparza o [facility] Results CBC 2021-06-17 17:03:00 Adriane Esparza [facility] MANUAL DIFFERENTIAL 2021-06-17 17:03:00 Adriane Esparza [facility] GLUCOSE LEVEL 2021-06-17 17:03:00 Adriane Esparza Saffell o [facility] BLOOD UREA NITROGEN 2021-06-17 17:03:00 Adriane Esparza [facility] ELECTROLYTE PANEL 2021-06-17 17:03:00 Isaias Adriane [facility] SERUM CREATININE 2021-06-17 17:03:00 Isaias [facility] .GLOMERULAR FILTRATION 2021-06-17 17:03:00 Adriane Esparza [facility] RATE [facility] CALCIUM LEVEL TOTAL 2021-06-17 17:03:00 Adriane Esparza [facility] URINE CULTURE 2021-05-13 14:16:00 [facility] o f [facility] CANCER ANTIGEN 125 2021-05-13 13:33:00 Viraj Batres [facility] COMPLETE BLOOD COUNT W/ 2021-05-13 13:33:00 [facility] BASIC METABOLIC PANEL, 2021-05-13 13:33:00 [facility] CALCIUM T[facility] BILIRUBIN TOTAL 2021-05-13 13:33:00 Viraj Batres [facility] ALANINE AMINOTRANSFERASE 2021-05-13 13:33:00 Viraj Batres [facility] ASPARTATE AMINOTRANSFERASE 2021-05-13 13:33:00 Viraj Batres [facility] MAGNESIUM LEVEL 2021-05-13 13:33:00 Viraj Batres [facility] URINALYSIS WITH 2021-05-13 13:33:00 Viraj Batres [facility] MICROSCOPIC IF INDICATED MD Vargas ishmael [facility] Results CBC 2021-05-13 13:33:00 Viraj Batres [facility] MANUAL DIFFERENTIAL 2021-05-13 13:33:00 Viraj Batres [facility] GLUCOSE LEVEL 2021-05-13 13:33:00 Viraj Batres [facility] BLOOD UREA NITROGEN 2021-05-13 13:33:00 Viraj Batres [facility] ELECTROLYTE PANEL 2021-05-13 13:33:00 Viraj Batres [facility] SERUM CREATININE 2021-05-13 13:33:00 Viraj Batres [facility] .GLOMERULAR FILTRATION 2021-05-13 13:33:00 [facility] [place] R[facility] CALCIUM LEVEL TOTAL 2021-05-13 13:33:00 Viraj Batres [facility] URINALYSIS MICROSCOPIC 2021-05-13 13:33:00 [facility] LUMBAR SPINE WO 2021-05-07 12:55:00 Jacek Parrish [facility] CONTRAST [facility] CANCER ANTIGEN 125 2021-04-22 15:40:00 Nick Mccallum [facility] COMPLETE BLOOD COUNT W/ 2021-04-22 15:40:00 Nick Mccallum [facility] DIFFERENTIAL [facility] BASIC METABOLIC PANEL, 2021-04-22 15:40:00 Nick Mccallum [facility] CALCIUM TOTAL [facility] BILIRUBIN TOTAL 2021-04-22 15:40:00 Nick Mccallum [facility] ALANINE AMINOTRANSFERASE 2021-04-22 15:40:00 [facility] ASPARTATE AMINOTRANSFERASE 2021-04-22 15:40:00 [facility]ccallum [facility] MAGNESIUM LEVEL 2021-04-22 15:40:00 Nick Mccallum Saffell o [facility] GLUCOSE LEVEL 2021-04-22 15:40:00 Nick Mccallum [facility] BLOOD UREA NITROGEN 2021-04-22 15:40:00 Nick Mccallum [facility] ELECTROLYTE PANEL 2021-04-22 15:40:00 Nick Mccallum [facility] SERUM CREATININE 2021-04-22 15:40:00 Nick Mccallum [facility] .GLOMERULAR FILTRATION 2021-04-22 15:40:00 Nick [facility]ccallum [facility] [place] RATE [facility] er Center CALCIUM LEVEL TOTAL 2021-04-22 15:40:00 Nick Mccallum [facility] Results CBC 2021-04-22 15:40:00 Nick Mccallum Saffell o f [facility] er Center MANUAL DIFFERENTIAL 2021-04-22 15:40:00 Nick Mccallum [facility] URINALYSIS WITH 2021-04-22 15:16:00 Nick Mccallum o [facility] MICROSCOPIC IF INDICATED MD Vargas [facility] URINALYSIS MICROSCOPIC 2021-04-22 15:16:00 Nick Mccallum [facility] CT CHEST ABDOMEN PELVIS W 2021-04-20 17:48:00 Nick [facility]cc[facility]um [facility] [place] CONTRAST [facility] POC CREATININE 2021-04-20 16:29:00 Nick Mccallum Saffell [facility] CANCER ANTIGEN 125 2021-03-25 14:32:00 Nick Mccallum y of [facility] COMPLETE BLOOD COUNT W/ 2021-03-25 14:32:00 [facility] BASIC METABOLIC PANEL, 2021-03-25 14:32:00 Nick [facility]ccallum [facility] CALCIUM TOTAL [facility] BILIRUBIN TOTAL 2021-03-25 14:32:00 Nick Mccallum o f [facility] Center ALANINE AMINOTRANSFERASE 2021-03-25 14:32:00 [facility] ASPARTATE AMINOTRANSFERASE 2021-03-25 14:32:00 [facility] MAGNESIUM LEVEL 2021-03-25 14:32:00 Nick Mccallum o f [facility] er Center Results CBC 2021-03-25 14:32:00 Nick Mccallum Saffell o f [facility] er Center MANUAL DIFFERENTIAL 2021-03-25 14:32:00 Nick Mccallum [facility] GLUCOSE LEVEL 2021-03-25 14:32:00 Nick Mccallum [facility] BLOOD UREA NITROGEN 2021-03-25 14:32:00 Nick Mccallum [facility] ELECTROLYTE PANEL 2021-03-25 14:32:00 Nick Mccallum [facility] SERUM CREATININE 2021-03-25 14:32:00 Nick Mccallum [facility] .GLOMERULAR FILTRATION 2021-03-25 14:32:00 Nick Mccallum [facility] RATE [facility] CALCIUM LEVEL TOTAL 2021-03-25 14:32:00 Nick Mccallum [facility] URINALYSIS WITH 2021-03-04 13:29:00 Adriane Esparza [facility] MICROSCOPIC IF INDICATED MD Sam moreno [facility] CANCER ANTIGEN 125 2021-03-04 13:29:00 Adriane Esparza y of [facility] COMPLETE BLOOD COUNT W/ 2021-03-04 13:29:00 Adriane Esparza [facility] DIFFERENTIAL [facility] BASIC METABOLIC PANEL, 2021-03-04 13:29:00 Adriane Esparza [facility] CALCIUM TOTAL [facility] BILIRUBIN TOTAL 2021-03-04 13:29:00 Adriane Esparza [facility] ALANINE AMINOTRANSFERASE 2021-03-04 13:29:00 [facility] ASPARTATE AMINOTRANSFERASE 2021-03-04 13:29:00 Adriane [facility] MAGNESIUM LEVEL 2021-03-04 13:29:00 Adriane Esparza [facility] Results CBC 2021-03-04 13:29:00 Adriane Esparza [facility] MANUAL DIFFERENTIAL 2021-03-04 13:29:00 Adriane Esparza [facility] GLUCOSE LEVEL 2021-03-04 13:29:00 Adriane Esparza o f [facility] BLOOD UREA NITROGEN 2021-03-04 13:29:00 Adriane Esparza [facility] ELECTROLYTE PANEL 2021-03-04 13:29:00 Adriane Esparza [facility] SERUM CREATININE 2021-03-04 13:29:00 Adriane Esparza [facility] .GLOMERULAR FILTRATION 2021-03-04 13:29:00 Adriane Esparza [facility] RATE [facility] CALCIUM LEVEL TOTAL 2021-03-04 13:29:00 Adriane Esparza [facility] URINALYSIS MICROSCOPIC 2021-03-04 13:29:00 Adriane Esparza [facility] URINE CULTURE 2021-02-25 15:41:00 [place] [facility] o f [facility] CANCER ANTIGEN 125 2021-02-25 14:48:00 Adriane Esparza y [facility] COMPLETE BLOOD COUNT W/ 2021-02-25 14:48:00 Adri[facility] BASIC METABOLIC PANEL, 2021-02-25 14:48:00 Adriane Esparza [facility] CALCIUM TOTAL [facility] BILIRUBIN TOTAL 2021-02-25 14:48:00 Adriane Esparza o [facility] ALANINE AMINOTRANSFERASE 2021-02-25 14:48:00 Adriane [facility] ASPARTATE AMINOTRANSFERASE 2021-02-25 14:48:00 Adriane [facility] MAGNESIUM LEVEL 2021-02-25 14:48:00 Adriane Esparza o [facility] Results CBC 2021-02-25 14:48:00 Adriane Esparza [facility] MANUAL DIFFERENTIAL 2021-02-25 14:48:00 Adriane Esparza [facility] GLUCOSE LEVEL 2021-02-25 14:48:00 Adriane Esparza o [facility] BLOOD UREA NITROGEN 2021-02-25 14:48:00 [facility] ELECTROLYTE PANEL 2021-02-25 14:48:00 Adriane Esparza [facility] SERUM CREATININE 2021-02-25 14:48:00 Isaias Adriane [facility] .GLOMERULAR FILTRATION 2021-02-25 14:48:00 Adriane Esparza [facility] RATE [facility] CALCIUM LEVEL TOTAL 2021-02-25 14:48:00 Adriane Esparza [facility] URINALYSIS WITH 2021-02-25 13:41:00 Adriane Esparza [facility] MICROSCOPIC IF INDICATED MD Vargas [facility] URINALYSIS MICROSCOPIC 2021-02-25 13:41:00 Adriane Esparza [facility] URINALYSIS WITH 2021-02-18 13:23:00 Adriane Esparza [facility] MICROSCOPIC IF INDICATED MD Vargas [facility] CANCER ANTIGEN 125 2021-02-18 13:23:00 Adriane Esparza [facility] COMPLETE BLOOD COUNT W/ 2021-02-18 13:23:00 Adriane [facility] BASIC METABOLIC PANEL, 2021-02-18 13:23:00 Adriane Esparza [facility] CALCIUM TOTAL [facility] BILIRUBIN TOTAL 2021-02-18 13:23:00 Adriane Esparza Saffell o [facility] ALANINE AMINOTRANSFERASE 2021-02-18 13:23:00 Adri[facility] ASPARTATE AMINOTRANSFERASE 2021-02-18 13:23:00 Adriane [facility]za [facility] MAGNESIUM LEVEL 2021-02-18 13:23:00 Adriane Esparza [facility] Results CBC 2021-02-18 13:23:00 Isaias Adriane [facility] MANUAL DIFFERENTIAL 2021-02-18 13:23:00 [facility] GLUCOSE LEVEL 2021-02-18 13:23:00 Isaias Adriane Saffell o f [facility] BLOOD UREA NITROGEN 2021-02-18 13:23:00 Adriane [facility]za [facility] ELECTROLYTE PANEL 2021-02-18 13:23:00 Adriane Esparza [facility] SERUM CREATININE 2021-02-18 13:23:00 Isaias Adriane [facility] .GLOMERULAR FILTRATION 2021-02-18 13:23:00 Adriane [facility]za [facility] RATE [facility] CALCIUM LEVEL TOTAL 2021-02-18 13:23:00 Adriane Esparza [facility] URINALYSIS MICROSCOPIC 2021-02-18 13:23:00 Adriane Esparza [facility] Plan of Care Planned Activity Planned Date Details Comments Source Future Scheduled 2022-02-10 COVID-19 Vaccination Uni [facility] Test 06:51:44 (2 - Pfizer risk [facility] Cancer series) [code = Center COVID-19 Vaccination (2 - Pfizer risk series)] Encounters Start End Encounter Admission Attending Care Care Encounter Source Date/Time Date/Time Type Type Clinicians Facility Department ID 2020-11-23 Outpatient SYSTEM, [facility] [id number] 10:39:51 PROVIDER Kevin broussard 2020-10-16 Outpatient SYSTEM, [facility] [id number] 13:32:25 PROVIDER Kevin broussard 2020-09-14 Outpatient SYSTEM, [facility] [id number] 16:02:01 PROVIDER Kevin broussard 2022-02-01 2022-02-01 Telephone Marah 1.2.840.1 [id number] [facility] 00:00:00 00:00:00 Meche Newman [id number] it y of 3.412.2.7 [place] .[id number] MD .8 [facility] 2022-01-27 2022-01-27 Infusion Nick Mccallum 1.2.840.1 [id number] [facility] 13:00:00 15:40:52 Hazel Lewis [id number] ity of 3.412.2.7 [place] .[id number] MD Blanchard8 [facility] 2022-01-27 2022-01-27 Office Deborah, 1.2.840.1 [id number] [facility] 11:30:00 12:00:00 Visit Viraj Perez [id number] it y of 3.412.2.7 [place] .[id number] MD Blanchard8 [facility] 2022-01-27 2022-01-27 Office Francois, 1.2.840.1 [id number] [facility] 10:00:00 11:14:19 Visit Jacek Leonard [id number] it y of 3.412.2.7 [place] .3.704579 MD Zelaya [facility] 2022-01-27 2022-01-27 Clinical Deborah, 1.2.840.1 [id number] Univers 09:00:00 09:38:27 Support Viraj Perez [id number] it y of 3.412.2.7 [place] .[id number] MD Zelaya [facility] 2022-01-27 2022-01-27 Travel 1.2.840.1 [id number] Univers 00:00:00 00:00:00 [id number] ity of 3.412.2.7 [place]3.698 [place] .[id number] 084.8 MD Zelaya [facility] 2022-01-26 2022-01-26 Jamison Batres 1.2.840.1 [id number] [facility] 00:00:00 00:00:00 Only Viraj Perez [id number] it y of 3.412.2.7 [place] .[id number] MD Zelaya [facility] 2022-01-24 2022-01-24 Jamison Mccallum 1.2.840.1 [id number] [facility] 00:00:00 00:00:00 Only Nick [id number] ity of 3.412.2.7 [place] .[id number] MD Zelaya [facility] 2022-01-23 2022-01-23 Jamison Mccallum, 1.2.840.1 [id number] [facility] 00:00:00 00:00:00 Only Nick [id number] ity of 3.412.2.7 [place] .[id number] MD Zelaya [facility] 2022-01-23 2022-01-23 Jamison Mccallum, 1.2.840.1 [id number] [facility] 00:00:00 00:00:00 Only Nick [id number] ity of 3.412.2.7 [place] .[id number] MD Zelaya [facility] 2022-01-17 2022-01-17 [facility] Adriane 1.2.840.1 [id number] Univers 15:17:28 23:59:00 Encounter [id number] it y of 3.412.2.7 [place] .[id number] MD Zelaya [facility] 2022-01-17 2022-01-17 Travel 1.2.840.1 [id number] Univers 00:00:00 00:00:00 [id number] 350.1.13.41 ity of 3.412.2.7 [place]3.698 [place] .[id number] 084.8 MD Zelaya [facility] 2022-01-16 2022-01-16 Jamison Mccallum 1.2.840.1 [id number] [facility] 00:00:00 00:00:00 Only Nick [id number] ity of 3.412.2.7 [place] .[id number] MD Zelaya [facility] 2022-01-13 2022-01-13 Jamison Batres 1.2.840.1 [id number] [facility] 00:00:00 00:00:00 Only Viraj Perez [id number] it y of 3.412.2.7 [place] .[id number] MD Blanchard8 [facility] 2021-11-22 2021-11-22 Jamison Mccallum 1.2.840.1 [id number] [facility] 00:00:00 00:00:00 Only Nick [id number] ity of 3.412.2.7 [place] .3.950422 MD Blanchard8 [facility] 2021-11-22 2021-11-22 Orders Adriane Esaprza 1.2.840.1 [id number] Univers 00:00:00 00:00:00 Only 57923.1.1 ity of 3.412.2.7 [place] .3.949868 MD Blanchard8 [facility] 2021-11-04 2021-11-04 Ezio Mccallum 1.2.840.1 [id number] [facility] 11:30:00 11:34:11 Nick 62783.1.1 ity of 3.412.2.7 [place] .3.418507 MD Zelaya [facility] 2021-11-04 2021-11-04 Outpatient CARLOS MCCALLUM MDA MDA [id number] 10:05:03 11:34:11 NICK broussard 2021-11-04 2021-11-04 Office Viraj Batres 1.2.840.1 [id number] [facility] 09:30:00 10:00:00 Visit Nick Mccallum 06737.1.1 ity of 3.412.2.7 [place] .3.314116 MD Garcia broussard [facility] 2021-11-04 2021-11-04 Outpatient CARLOS MCCALLUM MDA MDA [id number] 08:24:14 08:59:04 NICK broussard 2021-11-04 2021-11-04 Outpatient CARLOS BATRES MDA MDA [id number] 08:58:07 08:58:07 VIRAJ broussard 2021-11-04 2021-11-04 Outpatient CARLOS BATRES MDA MDA [id number] 08:23:59 08:55:28 VIRAJ broussard 2021-11-04 2021-11-04 Clinical Deborah, 1.2.840.1 [id number] [facility] 08:00:00 08:55:28 Support Viraj Perez 37454.1.1 it y of 3.412.2.7 [place] .3.715450 MD Blanchard8 [facility] 2021-11-04 2021-11-04 Travel 1.2.840.1 1.2.339.721 1401 [id number] [facility] 00:00:00 00:00:00 77359.1.1 350.1.13.41 ity of 3.412.2.7 [place].3.698 [place].45[place] 084.8 MD Zelaya [facility] 2021-11-03 2021-11-03 Orders Deborah 1.2.840.1 [id number] [facility] 00:00:00 00:00:00 Only Viraj Perez 07778.1.1 it y of 3.412.2.7 [place] .3.519398 MD Blanchard8 [facility] 2021-10-27 2021-10-27 Outpatient CARLOS PARRISH MDA [facility] [id number] 11:02:59 12:00:38 JACEK broussard 2021-10-27 2021-10-27 [place] Nena Parrish 1.2.840.1 [id number] [facility] 11:00:00 12:00:38 Visit Jacek Leonard 45816.1.1 it y of 3.412.2.7 [place] .3.678049 MD Zelaya [facility] 2021-10-27 2021-10-27 Travel 1.2.840.1 1.2.456.075 5722 [id number] [facility] 00:00:00 00:00:00 38178.1.1 350.1.13.41 ity of 3.412.2.7 [place].3.698 [place] .3.210[place] 084.8 MD Zelaya [facility] 2021-10-14 2021-10-14 Infusion Alessio, 1.2.840.1 [id number] [id number] [facility] 15:00:00 16:27:21 Nick 47942.1.1 ity of 3.412.2.7 [place] .3.104399 MD [facility] 2021-10-14 2021-10-14 Outpatient CARLOS MCCALLUM MDA MDA [id number] 14:49:57 16:27:21 NICK broussard 2021-10-14 2021-10-14 Outpatient CARLOS BATRES MDA MDA [id number] 13:17:02 16:17:14 VIRAJ broussard 2021-10-14 2021-10-14 Clinical Blaise Batres.2.840.1 [id number] [facility] 13:00:00 16:17:14 Support Viraj Perez 35473.1.1 it y of 3.412.2.7 [place] .3.405713 MD Garcia Brown bobo [facility] 2021-10-14 2021-10-14 Office Viraj Batres 1.2.840.1 [id number] [facility] 14:00:00 14:30:00 Visit Nick Mccallum 82120.1.1 ity of 3.412.2.7 [place] .3.184185 MD Garcia broussard [facility] 2021-10-14 2021-10-14 Outpatient CARLOS BATRES MDA MDA [id number] 13:47:54 13:47:54 VIRAJ broussard 2021-10-14 2021-10-14 Outpatient CARLOS MCCALLUM MDA MDA [id number] 13:16:19 13:46:48 NICK broussard 2021-10-14 2021-10-14 [facility] Mercedes Batres2.840.1 [id number] [facility] 00:00:00 00:00:00 Only Viraj Perez 16808.1.1 it y of 3.412.2.7 [place] .3.501270 MD Garcia broussard [facility] 2021-10-14 2021-10-14 Travel 1.2.840.1 1.2.009.956 [id number] [facility] 00:00:00 00:00:00 16496.1.1 350.1.13.41 ity of 3.412.2.7 2.[place]7.3.698 [place]3.5275[place] 084.8 MD [facility]anchard8 [facility] 2021-10-11 2021-10-11 Telemedic Noa Benton 1.2.840.1 [id number] [facility] 09:30:00 09:40:20 Michael Franklin 30961.1.1 ity of 3.412.2.7 [place] .3.371593 MD Zelaya [facility] 2021-10-11 2021-10-11 Outpatient CARLOS BENTON MDA MDA [id number] 09:22:42 09:40:20 NOA broussard 2021-10-11 2021-10-11 Cortney Parrish 1.2.840.1 [id number] [facility] 00:00:00 00:00:00 Jacek Leonard 65378.1.1 it y of 3.412.2.7 [place] .3.806738 MD [facility] 2021-10-09 2021-10-09 Outpatient CARLOS BATRES MDA MDA [id number] 10:40:00 23:59:00 VIRAJ broussard 2021-10-09 2021-10-09 [facility] Viraj Batres 1.2.840.1 [id number] [facility] 10:40:00 23:59:00 Madina Messina I 87461.1.1 ity of 3.412.2.7 [place] .3.574654 MD Garcia broussard [facility] 2021-10-09 2021-10-09 Travel 1.2.840.1 1.2.283.385 0769 [id number] [facility] 00:00:00 00:00:00 72849.1.1 350.1.13.41 ity of 3.412.2.7 [place]7.3.698 [place]3.199[place] 084.8 .8 [facility] 2021-10-06 2021-10-06 Orders Deborah, 1.2.840.1 [id number] [facility] 00:00:00 00:00:00 Only Viraj WebbLo 99858.1.1 it y of 3.412.2.7 [place] .3.101323 MD Blanchard8 [facility] 2021-10-06 2021-10-06 Orders Alessio, 1.2.840.1 [id number] [facility] 00:00:00 00:00:00 Only Nick 24041.1.1 ity of 3.412.2.7 [place] .3.590883 MD Blanchard8 [facility] 2021-10-05 2021-10-05 Jamison Mccallum, 1.2.840.1 [id number] [facility] 00:00:00 00:00:00 Only Nick 36022.1.1 ity of 3.412.2.7 [place] .3.932942 MD Blanchard8 [facility] 2021-10-05 2021-10-05 Jamison Mccallum, 1.2.840.1 [id number] [facility] 00:00:00 00:00:00 Only Nick 69311.1.1 ity of 3.412.2.7 [place] .3.905224 MD Zelaya [facility] 2021-10-04 2021-10-04 Outpatient CARLOS MCCALLUM MDA MDA [id number] 10:05:41 23:59:00 NICK broussard 2021-10-04 2021-10-04 [facility] Alessio, 1.2.840.1 [id number] [facility] 10:05:41 23:59:00 Encounter Nick 34681.1.1 it y of 3.412.2.7 [place] .3.142130 MD Zelaya [facility] 2021-10-04 2021-10-04 Outpatient CARLOS MCCALLUM MDA MDA [id number] 09:55:12 10:04:00 NICK broussard 2021-10-04 2021-10-04 [facility], 1.2.840.1 [id number] [facility] 09:55:12 10:04:00 Encounter Nick 74805.1.1 it y of 3.412.2.7 [place] .3.873505 MD Blanchard8 [facility] 2021-10-04 2021-10-04 Travel 1.2.840.1 1.2.239.768 1210 [id number] [facility] 00:00:00 00:00:00 14868.1.1 350.1.13.41 ity of 3.412.2.7 [place]7.3.698 [place]3.749706 084.8 .8 [facility] 2021-09-14 2021-09-14 Outpatient CARLOS MCCALLUMAIMEE MDA [id number] 15:07:25 16:18:41 NICK broussard 2021-09-14 2021-09-14 [facility], 1.2.840.1 [id number] [facility] 15:00:00 16:18:41 Nick 68995.1.1 ity of 3.412.2.7 [place] .3.045198 MD Blanchard8 [facility] 2021-09-14 2021-09-14 [facility] Batres, 1.2.840.1 [id number] [facility] 14:00:00 14:30:00 Visit Viraj Perez 37806.1.1 it y of 3.412.2.7 [place] .3.705553 MD [facility] 2021-09-14 2021-09-14 Outpatient CARLOS MCCALLUM MDA MDA [id number] 13:15:36 14:14:16 NICK broussard 2021-09-14 2021-09-14 Outpatient CARLOS BATRES MDA MDA [id number] 14:14:00 14:14:00 VIRAJ broussard 2021-09-14 2021-09-14 Clinical Deborah, 1.2.840.1 [id number] [facility] 13:30:00 13:59:32 Support Viraj D. 05610.1.1 it y of 3.412.2.7 [place] .3.938922 MD Blanchard8 [facility] 2021-09-14 2021-09-14 Outpatient CARLOS BATRES MDA MDA [id number] 13:16:12 13:59:32 VIRAJ Kevinjuan broussard 2021-09-14 2021-09-14 Travel 1.2.840.1 1.2.382.386 3616 [id number] [facility] 00:00:00 00:00:00 33298.1.1 350.1.13.41 ity of 3.412.2.7 [place]7.3.698 [place] .3.719400 084.8 MD Blanchard8 [facility] 2021-09-13 2021-09-13 Jamison Batres, 1.2.840.1 [id number] [facility] 00:00:00 00:00:00 Only Viraj Perez 55034.1.1 it y of 3.412.2.7 [place] .3.140952 MD Blanchard8 [facility] 2021-08-29 2021-08-29 Adriane Gonzalez 1.2.840.1 [id number] [facility] 00:00:00 00:00:00 Only 29636.1.1 ity of 3.412.2.7 [place] .3.216598 MD Blanchard8 [facility] 2021-08-29 2021-08-29 Maurizio Williamson 1.2.840.1 [id number] [id number] [facility] 00:00:00 00:00:00 November 27932.1.1 ity of 3.412.2.7 [place] .3.781845 MD Blanchard8 [facility] 2021-08-24 2021-08-24 Outpatient CARLOS YU MDA [id number] 10:47:01 12:06:15 Kevin broussard 2021-08-24 2021-08-24 Infusion 1.2.840.1 [id number] [facility] 10:30:00 12:06:15 95319.1.1 ity of 3.412.2.7 [place] .3.937861 MD Zelaya [facility] 2021-08-24 2021-08-24 Outpatient CARLOS BATRES MDA MDA [id number] 08:58:45 10:22:06 VIRAJ broussard 2021-08-24 2021-08-24 Clinical Deborah, 1.2.840.1 [id number] [facility] 08:30:00 10:22:06 Support Viraj Perez 75249.1.1 it y of 3.412.2.7 [place] .3.199646 MD Zelaya [facility] 2021-08-24 2021-08-24 Office Deborah, 1.2.840.1 [id number] [facility] 09:30:00 10:00:00 Visit Viraj Perez 22914.1.1 it y of 3.412.2.7 [place] .3.976858 MD [facility] 2021-08-24 2021-08-24 Outpatient CARLOS BATRES MDA MDA [id number] 09:58:11 09:58:11 VIRAJ broussard 2021-08-24 2021-08-24 Outpatient CARLOS BATRES MDA MDA [id number] 08:59:28 09:54:34 VIRAJ broussard 2021-08-24 2021-08-24 Travel 1.2.840.1 1.2.232.917 [id number] [facility] 00:00:00 00:00:00 65216.1.1 350.1.13.41 ity of 3.412.2.7 [place]7.3.698 [place]3.924985 084.8 MD Zelaya [facility] 2021-08-23 2021-08-23 [facility] Deborah, 1.2.840.1 [id number] [facility] 00:00:00 00:00:00 Only Viraj Perez 16788.1.1 it y of 3.412.2.7 [place] .3.048398 MD Zelaya [facility] 2021-08-15 2021-08-15 Ancillary Deborah 1.2.840.1 [id number] [facility] 13:30:00 14:30:00 Procedure Viraj Perez 37886.1.1 ity of 3.412.2.7 [place] .3.541775 MD Blanchard8 [facility] 2021-08-15 2021-08-15 Outpatient CARLOS BATRES [facility] MDA [id number] 13:24:24 13:24:24 VIRAJ broussard 2021-08-15 2021-08-15 Travel 1.2.840.1 1.2.779.115 [id number] [id number] [facility] 00:00:00 00:00:00 05516.1.1 350.1.13.41 ity of 3.412.2.7 2.[place]7.3.698 [place] .3.707441 084.8 MD Blanchard8 [facility] 2021-08-03 2021-08-03 Outpatient CARLOS PARRISH [facility] MDA [id number] MD 14:08:00 23:59:00 JACEK broussard 2021-08-03 2021-08-03 [facility], 1.2.840.1 [id number] [facility] 14:08:00 23:59:00 Encounter Jacek Leonard 70192.1.1 ity of 3.412.2.7 [place] .3.368044 MD Blanchard8 [facility] 2021-08-03 2021-08-03 Outpatient CARLOS PARRISH [facility] MDA [id number] MD 13:45:04 14:07:00 JACEK broussard 2021-08-03 2021-08-03 [facility], 1.2.840.1 [id number] [facility] 13:45:04 14:07:00 Encounter Jacek Leonard 26563.1.1 ity of 3.412.2.7 [place] .3.852387 MD Zelaya [facility] 2021-08-03 2021-08-03 Travel 1.2.840.1 1.2.082.659 [id number] [facility] 00:00:00 00:00:00 04446.1.1 350.1.13.41 ity of 3.412.2.7 [place]7.3.698 [place] .3.197734 084.8 .8 [facility] 2021-08-03 2021-08-03 Orders Andrea, 1.2.840.1 [id number] [facility] 00:00:00 00:00:00 Only Jozef 98075.1.1 ity of 3.412.2.7 [place] .3.274109 .8 [facility] 2021-07-29 2021-07-29 Infusion 1.2.840.1 [id number] [facility] 13:00:00 15:07:01 76978.1.1 ity of 3.412.2.7 [place] .3.750673 .8 [facility] 2021-07-29 2021-07-29 Outpatient AIMEE MDA [id number] 12:54:18 15:07:01 Kevin broussard 2021-07-29 2021-07-29 Outpatient EL AIMEE MCCALLUM MDA [id number] 14:28:13 14:30:33 NICK Brown bobo 2021-07-29 2021-07-29 Outpatient EL AIMEE PARRISH MDA [id number] MD 11:16:19 11:58:14 JACEK broussard 2021-07-29 2021-07-29 Office Francois, 1.2.840.1 [id number] 7356 [facility] 11:00:00 11:58:14 Visit Jacek Leonard 79481.1.1 it y of 3.412.2.7 [place] .3.531458 .8 [facility] 2021-07-29 2021-07-29 Office Deborah, 1.2.840.1 [id number] [facility] 10:00:00 10:30:00 Visit Viraj Perez 88757.1.1 it y of 3.412.2.7 [place] .3.382000 .8 [facility] 2021-07-29 2021-07-29 Outpatient EL AIMEE BATRES MDA [id number] 10:09:28 10:09:28 VIRAJ broussard 2021-07-29 2021-07-29 Clinical Deborah, 1.2.840.1 [id number] [facility] 09:30:00 09:58:38 Support Viraj Perez 17010.1.1 it y of 3.412.2.7 [place] .3.359043 MD Zelaya [facility] 2021-07-29 2021-07-29 Outpatient CARLOS BATRES AIMEE MDA [id number] 09:27:49 09:58:38 VIRAJ broussard 2021-07-29 2021-07-29 Outpatient CARLOS BATRES AIMEE MDA [id number] 09:26:59 09:57:59 VIRAJ broussard 2021-07-29 2021-07-29 Jamison Mccallum 1.2.840.1 [id number] [facility] 00:00:00 00:00:00 Only Nick 67965.1.1 ity of 3.412.2.7 [place] .3.076806 MD Zelaya [facility] 2021-07-29 2021-07-29 Travel 1.2.840.1 1.2.547.725 3976 [id number] [facility] 00:00:00 00:00:00 49471.1.1 350.1.13.41 ity of 3.412.2.7 2.[place]7.3.698 [place] .3.081515 084.8 MD Zelaya [facility] 2021-07-28 2021-07-28 Jamison Batres, 1.2.840.1 [id number] [facility] 00:00:00 00:00:00 Only Viraj Perez 70032.1.1 it y of 3.412.2.7 [place] .3.212436 MD Zelaya [facility] 2021-07-27 2021-07-27 Ra Mccallum, 1.2.840.1 [id number] [facility] 11:55:00 14:20:00 Procedure Nick 94850.1.1 it y of 3.412.2.7 [place] .3.488331 MD [facility] 2021-07-27 2021-07-27 Outpatient CARLOS MCCALLUM MDA MDA [id number] 11:54:28 11:54:28 NICK broussadr 2021-07-27 2021-07-27 Travel 1.2.840.1 1.2.162.712 [id number] [facility] 00:00:00 00:00:00 93954.1.1 350.1.13.41 ity of 3.412.2.7 2.[place]7.3.698 [place] .3.379086 084.8 .8 [facility] 2021-07-08 2021-07-08 Outpatient CARLOS BATRES MDA MDA [id number] 10:17:51 12:04:48 VIRAJ broussard 2021-07-08 2021-07-08 Infusion Deborah, 1.2.840.1 [id number] [facility] 10:00:00 12:04:48 Viraj Perez 88830.1.1 it y of 3.412.2.7 [place] .3.539868 .8 [facility] 2021-07-08 2021-07-08 Clinical Deborah, 1.2.840.1 [id number] [facility] 11:00:00 11:00:00 Support Viraj Perez 95137.1.1 it y of 3.412.2.7 [place] .3.600933 .8 [facility] 2021-07-08 2021-07-08 Outpatient CARLOS BATRES MDA MDA [id number] 09:42:34 10:36:30 VIRAJ broussard 2021-07-08 2021-07-08 Office Deborah, 1.2.840.1 [id number] [facility] 08:30:00 10:36:30 Visit Viraj Perez 49329.1.1 it y of 3.412.2.7 [place] .3.520944 MD Zelaya [facility] 2021-07-08 2021-07-08 Outpatient CARLOS MCCALLUM MDA MDA [id number] 08:46:45 09:45:45 NICK broussard 2021-07-08 2021-07-08 Outpatient CARLOS BATRES MDA [facility] [id number] 08:48:34 09:32:05 VIRAJ broussard 2021-07-08 2021-07-08 Travel 1.2.840.1 1.2.362.332 [id number] [facility] 00:00:00 00:00:00 78906.1.1 350.1.13.41 ity of 3.412.2.7 [place]7.3.698 [place] .3.836120 084.8 MD Zelaya [facility] 2021-07-07 2021-07-07 Jamison Batres, 1.2.840.1 [id number] [facility] 00:00:00 00:00:00 Only Viraj Perez 10572.1.1 it y of 3.412.2.7 [place] .3.365906 MD Zelaya [facility] 2021-07-01 2021-07-01 Cortney Mccallum, 1.2.840.1 [id number] [facility] 00:00:00 00:00:00 Nick 27643.1.1 ity of 3.412.2.7 [place] .3.794044 MD Zelaya [facility] 2021-06-17 2021-06-17 La Nena Mccallum, 1.2.840.1 [id number] [facility] 13:00:00 15:51:11 Visit Nick 99075.1.1 ity of 3.412.2.7 [place] .3.739611 MD Zelaya [facility] 2021-06-17 2021-06-17 Outpatient CARLOS MCCALLUM MDA MDA [id number] 12:21:42 15:51:11 NICK broussard 2021-06-17 2021-06-17 Infusion 1.2.840.1 [id number] [facility] 14:00:00 15:23:40 64070.1.1 ity of 3.412.2.7 [place] .3.706643 MD Zelaya [facility] 2021-06-17 2021-06-17 Outpatient EL MDA MDA [id number] 13:33:28 15:23:40 [facility] o 2021-06-17 2021-06-17 Outpatient EL ADRIANE ESPARZA MDA MDA [id number] 12:05:29 12:21:24 Kevin o n 2021-06-17 2021-06-17 Clinical 1.2.840.1 [id number] [facility] 11:30:00 12:06:58 Support 85513.1.1 ity of 3.412.2.7 [place] .3.494457 MD Blanchard8 [facility] 2021-06-17 2021-06-17 Outpatient EL MDA MDA [id number] 11:18:55 12:06:58 [facility] 2021-06-17 2021-06-17 Outpatient EL MDA MDA [id number] 11:19:30 12:06:20 [facility] 2021-06-17 2021-06-17 Jamison Batres, 1.2.840.1 [id number] [facility] 00:00:00 00:00:00 Only Viraj Perez 65348.1.1 it y of 3.412.2.7 [place] .3.725897 .8 [facility] 2021-06-17 2021-06-17 Travel 1.2.840.1 1.2.466.732 7874 [id number] [facility] 00:00:00 00:00:00 68728.1.1 350.1.13.41 ity of 3.412.2.7 2.[place]7.3.698 [place] .3.629397 084.8 MD Blanchard8 [facility] 2021-05-17 2021-05-17 Cortney Parrish, 1.2.840.1 [id number] [facility] 00:00:00 00:00:00 Jacek Leonard 53463.1.1 it y of 3.412.2.7 [place] .3.859213 MD Blanchard8 [facility] 2021-05-13 2021-05-13 Outpatient EL MDA MDA [id number] 09:09:27 09:16:12 Kevin broussard 2021-05-13 2021-05-13 Office Deborah, 1.2.840.1 [id number] [facility] 08:30:00 09:00:00 Visit Viraj Perez 74394.1.1 it y of 3.412.2.7 [place] .3.718336 MD Garcia broussard [facility] 2021-05-13 2021-05-13 Outpatient CARLOS AIMEE BATRES MDA [id number] 08:45:13 08:45:13 VIRAJ broussard 2021-05-13 2021-05-13 Outpatient CARLOS ALESSIOAIMEE MDA [id number] 08:15:25 08:34:28 NICK broussard 2021-05-13 2021-05-13 Clinical Alessio, 1.2.840.1 [id number] [facility] 08:00:00 08:34:28 Support Nick 68545.1.1 ity of 3.412.2.7 [place] .3.436825 MD [facility] 2021-05-13 2021-05-13 Outpatient CARLOS BATRES AIMEE YU [id number] 08:16:16 08:34:14 VIRAJ broussard 2021-05-13 2021-05-13 Jamison Mccallum, 1.2.840.1 [id number] [facility] 00:00:00 00:00:00 Only Nick 88326.1.1 ity of 3.412.2.7 [place] .3.721171 MD Garcia broussard [facility] 2021-05-13 2021-05-13 Travel 1.2.840.1 1.2.764.683 7817 [id number] [facility] 00:00:00 00:00:00 77027.1.1 350.1.13.41 ity of 3.412.2.7 2.2[place]7.3.698 [place] .3.518030 084.8 MD Zelaya [facility] 2021-05-12 2021-05-12 Jamison Batres, 1.2.840.1 [id number] [facility] 00:00:00 00:00:00 Only Viraj Perez 56023.1.1 it y of 3.412.2.7 [place] .3.838226 MD Zelaya [facility] 2021-05-07 2021-05-07 Ancillary Francois, 1.2.840.1 [id number] [facility] 06:15:00 08:00:00 Procedure Jacek Leonard 83610.1.1 ity of 3.412.2.7 [place] .3.072638 MD Blanchard8 [facility] 2021-05-07 2021-05-07 Outpatient CARLOS PARRISH MDA [facility] [id number] MD 06:03:29 06:03:29 JACEK broussard 2021-05-07 2021-05-07 Travel 1.2.840.1 1.2.021.832 1298 [id number] [facility] 00:00:00 00:00:00 68795.1.1 350.1.13.41 ity of 3.412.2.7 2.2.7.3.698 [place] .3.795367 084.8 MD Zelaya [facility] 2021-04-28 2021-04-28 Outpatient CARLOS PARRISH MDA [facility] [id number] [place] 09:36:00 10:42:27 JACEK broussard 2021-04-28 2021-04-28 Office Francois 1.2.840.1 [id number] 6799 [facility] 09:30:00 10:42:27 Visit Jacek Leonard 40093.1.1 it y of 3.412.2.7 [place] .3.442937 MD Zelaya [facility] 2021-04-28 2021-04-28 Travel 1.2.840.1 1.2.877.183 6896 [id number] [facility] 00:00:00 00:00:00 48731.1.1 350.1.13.41 ity of 3.412.2.7 [place].3.698 [place] .3.979769 084.8 MD Zel[facility] 2021-04-22 2021-04-22 Ezio Mccallum 1.2.840.1 [id number] [facility] 12:30:00 14:08:40 Nick 16892.1.1 ity of 3.412.2.7 [place] .3.455692 MD Blanchard8 Susan broussard [facility] 2021-04-22 2021-04-22 Outpatient CARLOS MCCALLUM MDA MDA [id number] 11:52:41 14:08:40 NICK broussard 2021-04-22 2021-04-22 [facility] Deborah 1.2.840.1 [id number] [facility] 11:30:00 12:00:00 Visit Viraj Perez 01490.1.1 it y of 3.412.2.7 [place] .3.669502 MD Blanchard8 [facility] 2021-04-22 2021-04-22 Outpatient CARLOS BATRES MDA MDA [id number] 10:15:41 11:27:55 VIRAJ broussard 2021-04-22 2021-04-22 [facility] Deborah 1.2.840.1 [id number] [facility] 10:00:00 11:27:55 Support Viraj Perez 62938.1.1 it y of 3.412.2.7 [place] .3.075660 MD Blanchard8 [facility] 2021-04-22 2021-04-22 Outpatient CARLOS BATRES MDA MDA [id number] 10:57:00 10:57:00 VIRAJ broussard 2021-04-22 2021-04-22 Outpatient CARLOS ALESSIO [facility] MDA [id number] 10:16:09 10:44:53 NICK broussard 2021-04-22 2021-04-22 Travel 1.2.840.1 1.2.514.528 [id number] [facility] 00:00:00 00:00:00 48837.1.1 350.1.13.41 ity of 3.412.2.7 [place]3.698 [place] .3.145861 084.8 MD Blanchard8 Susan broussard [facility] 2021-04-20 2021-04-20 Ra Mccallum 1.2.840.1 [id number] [facility] 10:25:00 12:50:00 Procedure Nick 54372.1.1 it y of 3.412.2.7 [place] .3.033125 MD Blanchard8 [facility] 2021-04-20 2021-04-20 Outpatient CARLOS MCCALLUM [facility] MDA [id number] MD 10:16:37 10:16:37 NICK broussard 2021-04-20 2021-04-20 Travel 1.2.840.1 1.2.236.833 [id number] [facility] 00:00:00 00:00:00 89175.1.1 350.1.13.41 ity of 3.412.2.7 [place].3.698 [place] .3.135263 084.8 MD Zelaya [facility] 2021-03-25 2021-03-25 [facility] Alessio, 1.2.840.1 [id number] [facility] 11:00:00 14:33:53 Nick 59280.1.1 ity of 3.412.2.7 [place] .3.332921 MD Blanchard8 [facility] 2021-03-25 2021-03-25 Outpatient CARLOS MCCALLUM [facility] MDA [id number] 10:35:54 14:33:53 NICK broussard 2021-03-25 2021-03-25 [facility], 1.2.840.1 [id number] [facility] 10:00:00 10:30:00 Visit Nick 35558.1.1 ity of 3.412.2.7 [place] .3.004059 MD [facility] 2021-03-25 2021-03-25 Outpatient CARLOS MCCALLUM MDA MDA [id number] 09:39:47 09:39:47 NICK broussard 2021-03-25 2021-03-25 Outpatient CARLOS BATRES MDA MDA [id number] 09:07:30 09:39:20 VIRAJ broussard 2021-03-25 2021-03-25 Outpatient CARLOS MCCALLUM [facility] MDA [id number] 09:06:46 09:39:19 NICK broussard 2021-03-25 2021-03-25 Orders Roxanna, 1.2.840.1 [id number] Univers 00:00:00 00:00:00 Only Cole 17978.1.1 ity of 3.412.2.7 [place] .3.635171 MD Zelaya [facility] 2021-03-25 2021-03-25 Travel 1.2.840.1 1.2.154.577 [id number] Univers 00:00:00 00:00:00 23408.1.1 350.1.13.41 ity of 3.412.2.7 [place].3.698 [place] .3.334[place] 084.8 MD Zelaya [facility] 2021-03-22 2021-03-22 Orders Alessio, 1.2.840.1 [id number] Univers 00:00:00 00:00:00 Only Nick 54507.1.1 ity of 3.412.2.7 [place] .3.660013 MD Zelaya [facility] 2021-03-21 2021-03-21 Orders Deborah, 1.2.840.1 [id number] Univers 00:00:00 00:00:00 Only Viraj Perez 95381.1.1 it y of 3.412.2.7 [place] .3.850099 MD Zelaya [facility] 2021-03-20 2021-03-20 Adriane Gonzalez 1.2.840.1 [id number] Univers 00:00:00 00:00:00 Only 52911.1.1 ity of 3.412.2.7 [place] .3.820706 MD Zelaya [facility] 2021-03-17 2021-03-17 Adriane Gonzalez 1.2.840.1 [id number] Univers 00:00:00 00:00:00 Only 51263.1.1 ity of 3.412.2.7 [place] .3.434742 MD Zelaya [facility] 2021-03-04 2021-03-04 Infusion Adriane Esparza 1.2.840.1 [id number] Univers 10:00:00 11:12:35 54265.1.1 ity of 3.412.2.7 [place] .3.630325 MD Zelaya [facility] 2021-03-04 2021-03-04 Outpatient ADRIANE FARRELL MDA MDA [id number] 09:34:02 11:12:35 Kevin o bobo 2021-03-04 2021-03-04 Office Deborah 1.2.840.1 [id number] [facility] 09:00:00 09:30:00 Visit Viraj Perez 86374.1.1 it y of 3.412.2.7 [place] .3.067768 MD Blanchard8 [facility] 2021-03-04 2021-03-04 Outpatient CARLOS DEBORAHAIMEE MDA [id number] 08:38:52 08:38:52 VIRAJ broussard 2021-03-04 2021-03-04 Outpatient ADRIANE FARRELL [facility] MDA [id number] 08:06:11 08:38:00 Kevin broussard 2021-03-04 2021-03-04 Clinical Bryan, 1.2.840.1 [id number] [facility] 08:15:00 08:31:11 Support Miguel Vieyra 93175.1.1 it y of 3.412.2.7 [place] .3.632389 MD Blanchard8 [facility] 2021-03-04 2021-03-04 Outpatient CARLOS BRYANAIMEE MDA [id number] 08:06:28 08:31:11 MIGUEL broussard 2021-03-04 2021-03-04 Travel 1.2.840.1 1.2.827.824 [id number] [facility] 00:00:00 00:00:00 70552.1.1 350.1.13.41 ity of 3.412.2.7 [place]7.3.698 [place] .3.023021 084.8 .8 [facility] 2021-02-25 2021-02-25 Infusion Adriane Esparza 1.2.840.1 [id number] Univers 10:30:00 13:30:00 54252.1.1 ity of 3.412.2.7 [place] .3.146318 MD Blanchard8 [facility] 2021-02-25 2021-02-25 Outpatient CARLOS ADAMS AIMEE MDA [id number] 08:41:22 11:17:43 MIGUEL broussard 2021-02-25 2021-02-25 Clinical Bryan, 1.2.840.1 [id number] [facility] 08:15:00 11:17:43 Support Miguel Vieyra 65884.1.1 it y of 3.412.2.7 [place] .3.230524 MD Zelaya [facility] 2021-02-25 2021-02-25 Outpatient ADRIANE FARRELL [facility] MDA [id number] 08:40:43 09:48:16 Kevin [facility] 2021-02-25 2021-02-25 Outpatient ADRIANE FARRELL [facility] MDA [id number] MD 00:00:00 00:00:00 Kevin broussard 2021-02-25 2021-02-25 Jamison Mccallum 1.2.840.1 [id number] Univers 00:00:00 00:00:00 Only Nick 00522.1.1 ity of 3.412.2.7 [place] .3.396856 MD Blanchard8 [facility] 2021-02-25 2021-02-25 Jamison Mccallum 1.2.840.1 [id number] Univers 00:00:00 00:00:00 Only Nick 47113.1.1 ity of 3.412.2.7 [place] .3.278463 MD Blanchard8 [facility] 2021-02-25 2021-02-25 Travel 1.2.840.1 1.2.377.215 [id number] Univers 00:00:00 00:00:00 77251.1.1 350.1.13.41 ity of 3.412.2.7 [place].3.698 [place] .3.9298[place] 084.8 MD Blanchard8 [facility] 2021-02-18 2021-02-18 Outpatient CARLOS MCCALLUM MDA MDA [id number] 08:37:26 12:33:50 NICK broussard 2021-02-18 2021-02-18 Office Alessio 1.2.840.1 [id number] [facility] 08:30:00 12:33:50 Visit Nick 43568.1.1 ity of 3.412.2.7 [place] .3.501279 MD [facility] 2021-02-18 2021-02-18 Outpatient CARLOS ESPARZA ADRIANE AIMEE MDA [id number] 08:04:07 08:25:37 Kevin broussard 2021-02-18 2021-02-18 Outpatient CARLOS BATRES MDA MDA [id number] 08:03:24 08:24:33 VIRAJ broussard 2021-02-18 2021-02-18 Clinical Deborah, 1.2.840.1 [id number] Univers 08:00:00 08:24:33 Support Viraj Perez 63634.1.1 it y of 3.412.2.7 [place] .3.982268 MD Zelaya [facility] 2021-02-18 2021-02-18 Travel 1.2.840.1 1.2.834.726 [id number] Univers 00:00:00 00:00:00 33614.1.1 350.1.13.41 ity of 3.412.2.7 [place]7.3.698 [place] .3.801771 084.8 MD Zelaya [facility] 2021-02-15 2021-02-15 Refsheri Adams 1.2.840.1 [id number] Univers 00:00:00 00:00:00 Miguel Vieyra 56366.1.1 it y of 3.412.2.7 [place] .3.794778 MD Zelaya [facility] 2021-02-10 2021-02-10 Cortney Terry, 1.2.840.1 [id number] Univers 00:00:00 00:00:00 Abdullahi Webb 18079.1.1 y of 3.412.2.7 [place] .3.410933 MD .8 [facility] 2021-01-28 2021-01-28 Outpatient EL PARRISH, MDA MDA [id number] MD 15:52:05 23:59:00 JACEK broussard 2021-01-28 2021-01-28 Outpatient EL PARRISH, MDA MDA [id number] MD 14:52:11 15:51:00 JACEK broussard 2021-01-28 2021-01-28 Outpatient EL GIOVANNY, MDA MDA [id number] MD 14:51:44 14:51:44 VALERIE broussard 2021-01-28 2021-01-28 Outpatient EL FRANCOIS, MDA MDA [id number] MD 13:40:16 14:50:00 JACEK broussard 2021-01-24 2021-01-24 Outpatient EL FRANCOIS, MDA MDA [id number] 09:05:56 10:10:49 JACEK broussard 2021-01-24 2021-01-24 Outpatient EL SLSL SLSL [id number] SLSL 00:00:00 00:00:00 2021-01-21 2021-01-21 Outpatient CARLOS BATRES, MDA MDA [id number] 09:29:25 13:08:21 VIRAJ broussard 2021-01-21 2021-01-21 Outpatient CARLOS BATRES, MDA MDA [id number] 08:20:06 08:20:06 VIRAJ broussard 2021-01-19 2021-01-19 Outpatient CARLOS BATRES, MDA MDA [id number] 12:46:37 23:59:00 VIRAJ broussard 2021-01-19 2021-01-19 Outpatient CARLOS ADAMS, MDA MDA [id number] 12:50:26 12:50:26 MIGUEL broussard 2020-12-24 2020-12-24 Outpatient EL BRYAN, MDA MDA [id number] 09:23:26 15:09:37 MIGUEL broussard 2020-12-24 2020-12-24 Outpatient CARLOS BATRES, MDA MDA [id number] 08:47:18 09:34:10 VIRAJ broussard 2020-12-24 2020-12-24 Outpatient CARLOS ADAMS, MDA MDA [id number] 08:19:49 08:50:29 MIGUEL broussard 2020-12-24 2020-12-24 Outpatient BRYAN, MDA MDA [id number] 08:20:30 08:42:06 MIGUEL broussard 2020-11-30 2020-11-30 Outpatient FRANCOIS, MDA MDA [id number] 07:41:33 23:59:00 JACEK broussard 2020-11-26 2020-11-26 Outpatient CARLOS BATRES, MDA MDA [id number] 10:04:21 14:59:16 VIRAJ broussard 2020-11-26 2020-11-26 Outpatient CARLOS MCCALLUM, MDA MDA [id number] 09:54:21 10:00:10 NICK broussard 2020-11-26 2020-11-26 Outpatient DEBORAH, MDA MDA [id number] 08:20:44 09:45:53 VIRAJ broussard 2020-11-26 2020-11-26 Outpatient CARLOS BATRES, MDA MDA [id number] 08:41:00 09:22:56 VIRAJ broussard 2020-11-26 2020-11-26 Outpatient CARLOS BATRES, MDA MDA [id number] 09:21:39 09:21:39 VIRAJ broussard 2020-11-08 2020-11-08 Outpatient DEBORAH, MDA MDA [id number] 11:18:51 13:22:46 VIRAJ broussard 2020-10-29 2020-10-29 Outpatient FRANCOIS, MDA MDA [id number] 16:14:57 23:59:00 JACEK broussard 2020-10-29 2020-10-29 Outpatient FRANCOIS, MDA MDA [id number] 16:00:00 16:13:00 JACEK broussard 2020-10-29 2020-10-29 Outpatient EL ALESSIO, MDA MDA [id number] MD 10:59:42 15:10:06 NICK broussard 2020-10-29 2020-10-29 Outpatient EL DEBORAH, MDA MDA [id number] MD 10:07:43 10:07:43 VIRAJ broussard 2020-10-29 2020-10-29 Outpatient CARLOS MCCALLUM, MDA MDA [id number] 09:14:51 10:07:05 NICK broussard 2020-10-29 2020-10-29 Outpatient EL DEBORAH, MDA MDA [id number] 00:00:00 00:00:00 VIRAJ broussard 2020-10-27 2020-10-27 Outpatient CARLOS MCCALLUM, MDA MDA [id number] MD 16:13:39 23:59:00 NICK broussard 2020-10-27 2020-10-27 Outpatient EL FRANCOIS, MDA MDA [id number] 13:02:09 13:02:09 JACEK broussard 2020-10-25 2020-10-25 Outpatient EL FRANCOIS, MDA MDA [id number] MD 11:40:40 16:03:29 JACEK broussard 2020-10-18 2020-10-18 Outpatient CARLOS BATRES, MDA MDA [id number] MD 13:05:00 23:59:00 VIRAJ broussard 2020-10-11 2020-10-11 Outpatient EL FRANCOIS, MDA MDA [id number] MD 08:58:24 08:58:24 JACEK broussard 2020-10-01 2020-10-01 Outpatient CARLOS MCCALLUM, MDA MDA [id number] MD 09:12:07 13:48:15 NICK broussard 2020-10-01 2020-10-01 Outpatient EL DEBORAH, MDA MDA [id number] 08:03:15 08:03:15 VIRAJ broussard 2020-09-30 2020-09-30 Outpatient EL GULSHAN, MDA Surgical [id number] MD 06:48:00 11:50:00 JARETT broussard 2020-09-30 2020-09-30 Outpatient EL MDA MDA [id number] 10:30:43 10:30:43 Kevin broussard 2020-09-30 2020-09-30 Outpatient EL MDA MDA [id number] 08:50:17 08:50:17 Kevin broussard 2020-09-30 2020-09-30 Outpatient GULSHAN, MDA MDA [id number] MD 07:42:26 07:42:26 JARETT broussard 2020-09-30 2020-09-30 Outpatient [facility], MDA MDA [id number] 07:01:16 07:01:16 GUERITA broussard 2020-09-30 2020-09-30 Outpatient ALESSIO, MDA MDA [id number] MD 06:09:04 06:47:00 NICK broussard 2020-09-30 2020-09-30 Outpatient [facility], MDA MDA [id number] 06:04:30 06:08:00 GUERITA broussard 2020-09-28 2020-09-28 Outpatient [facility], MDA MDA [id number] 08:06:09 08:06:09 GUERITA broussard 2020-09-27 2020-09-27 Outpatient ALESSIO, MDA MDA [id number] 09:46:58 23:59:00 NICK broussard 2020-09-27 2020-09-27 Outpatient [facility], MDA MDA [id number] 12:09:59 14:13:50 GUERITA broussard 2020-09-27 2020-09-27 Outpatient [facility], MDA MDA [id number] 14:03:54 14:03:54 JACEK broussard 2020-09-27 2020-09-27 Outpatient [facility], MDA MDA [id number] 11:35:09 11:35:09 GUERITA broussard 2020-09-27 2020-09-27 Outpatient [facility], MDA MDA [id number] 09:21:58 09:32:11 GUERITA broussard 2020-09-27 2020-09-27 Outpatient [facility], MDA MDA [id number] 07:44:10 07:44:10 GUERITA broussard 2020-09-03 2020-09-03 Outpatient CARLOS BATRES, MDA MDA [id number] 10:21:20 15:43:11 VIRAJ broussard 2020-09-03 2020-09-03 Outpatient CARLOS BATRES, MDA MDA [id number] 09:14:54 09:14:54 VIRAJ broussard 2020-09-03 2020-09-03 Outpatient CARLOS BATRES, MDA MDA [id number] 08:46:38 09:01:31 VIRAJ broussard 2020-08-06 2020-08-06 Outpatient CARLOS BATRES, MDA MDA [id number] 08:31:12 17:46:16 VIRAJ broussard 2020-08-06 2020-08-06 Outpatient CARLOS BATRES, MDA MDA [id number] 08:06:29 08:31:14 VIRAJ broussard 2020-08-05 2020-08-05 Outpatient CARLOS MCCALLUM, MDA MDA [id number] 10:16:11 10:16:11 NICK broussard 2020-07-30 2020-07-30 Outpatient CARLOS MCCALLUM, MDA MDA [id number] 12:34:23 12:57:45 NICK broussard 2020-07-30 2020-07-30 Outpatient CARLOS BATRES, MDA MDA [id number] 09:14:43 12:32:08 VIRAJ broussard 2020-07-30 2020-07-30 Outpatient CARLOS BATRES, MDA MDA [id number] 11:09:50 11:09:50 VIRAJ broussard 2020-07-30 2020-07-30 Outpatient CARLOS BATRES, MDA MDA [id number] 09:18:53 09:18:53 VIRAJ broussard 2020-07-27 2020-07-27 Outpatient CARLOS BATRES, MDA MDA [id number] 12:53:52 12:53:52 VIRAJ broussard Results Test Description Test Time Test Comments Results Result Comments Source POC Creatinine 2022-01-17 22:54:57 Test Item Value Reference Range Interpretation Comme nts POC Crea (test code = 0.8 mg/dL 0.6-1.3 Medica tions, especially 95362-9) hydroxyurea or supplements, such as ascorba te, can interfere with test results causing a false ly and significantly h igher result than expected. If a problem is suspected with a patient's result, a sampl e should be sent to the lab oratory for confirmatory te sting. Method description: e i-STAT is an analyzer used f or in vitro quantification of various analytes in who le blood. The device uses a s new disposable cart ridge which contains microf abricated sensors, a estelita bration solution, fluid ics system, and a waste chamber . Each test cartridge conta ins chemically sensitive biose nsors on a silicon chip th at are configured to p erform specific tests. The micr ofabricated sensors measure analyte concentration b y an electrochemical assay. POC eGFR-AA (test code = 77 See_Comment Nor mal eGFR >= 60 mL/min/1.73 20286-0) m2 The eGFR is calculated using the CKD-E PI equation. The eGFR declin es with age. eGFR <60 mL/min /1.73 m2 is considered as " decreased" This equation should only be used for patients 18 and older. According to e National Kidney [employer] on's Kidney Disease Outcome Quality Initiative (KDO QI) classification and 2012 Kidney Disease Improvi ng Global Outcomes (KDIGO ) Clinical Practice Guidel ine, the stage of CKD should b e categorized based on estima sammie GFR. Stage Description GFR mL/min/1.73 m21 Kidney sean ge with normal or high GFR >=902 Kidney damage with mil d decrease in GFR 60-893a Mild to moderate decrea se in GFR 45-593b Moderat e to severe decrease in GFR 30-444 Severe decrease in GFR 15-295 Kidney f ailure <15 (or dialysis) [Automated message] The sy stem which generated this result transmitted ref erence range: >=60 mL/min/1.7 3 m2. The reference range was not used to interpret is result as normal/abnormal . POC eGFR-GERBER (test code = 67 See_Comment No rmal eGFR >= 60 mL/min/1.73 89399-2) m2 The eGFR is calculated using the CKD-E PI equation. The eGFR declin es with age. eGFR <60 mL/min /1.73 m2 is considered as " decreased" This equation should only be used for patients 18 and older. According to th e National Kidney Found[employer] on's Kidney Disease Outcome Quality Initiative (KDO QI) classification and 2012 Kidney Disease Improvi ng Global Outcomes (KDIGO ) Clinical Practice Guidel ine, the stage of CKD should b e categorized based on estima sammie GFR. Stage Description GFR mL/min/1.73 m21 Kidney sean ge with normal or high GFR >=902 Kidney damage with mil d decrease in GFR 60-893a Mild to moderate decrea se in GFR 45-593b Moderat e to severe decrease in GFR 30-444 Severe decrease in GFR 15-295 Kidney f ailure <15 (or dialysis) [Automated message] The sy stem which generated this result transmitted ref erence range: >=60 mL/min/1.7 3 m2. The reference range was not used to interpret is result as normal/abnormal . POC Clean Dev (test code Yes = 6672) Performing Lab (test code [facility] = 07613) [place] MD [facility], [address], [place], [place] [address]; Building Wrecker: Kylee Padilla [facility], [facility], COMPLETE (MIN 2 VIEWS), [id number] 11:08:00Reason for Exam:->M54.9,G89.29 [facility] : 1935 Sex: FFINAL REPORT Right shoulder History provided: M 54.9 No fracture or dislocation. Glenohumeral joint space is narrowed with minimal spurring, consistent with degenerative change. Signed: Constantin Jacintoeport Verified Date/Time: 01/24/2021 11:08:40 Reading Location: [facility] Diagnostic Imaging Reading Room - [facility] 1.310.12
[2022-02-10] MEDS ORDERED: NA CHLORIDE 0.9% 250 ML ONE (09:37)
[2022-02-10 10:11] LABS: Absolute Lymphocytes (CBC) 1.3 K/uL (0.7-4.9); Hematocrit 34.1 % (36.0-45.0); Lymphocytes % 28.4 % (15.3-44.8); MPV 8.8 fL (7.6-11.3)
[2022-02-10 11:13] LABS: Albumin 3.3 g/dL (3.4-5.0); Bilirubin Total 0.3 mg/dL (0.2-1.0); Potassium 3.8 mmol/L (3.5-5.1); Protein, Total 6.5 g/dL (6.4-8.2)
[2022-02-10 11:58] LABS: Blood Morphology Comment NOT SEEN (NOT SEEN); Platelet Estimate DECR; Platelets, Giant FEW; White Blood Cell Scan OK (OK)
[2022-02-10 12:07] LABS: Urine Blood Negative (Negative); Urine Glucose Negative (Negative); Urine Protein Trace (Negative); Urine Specific Gravity 1.025 (1.005-1.030); Urine pH 5.5 (5.0-7.0)
--- NOTE | 2022-02-10 12:27 | RAD REPORT ---
EXAM DESCRIPTION: CT - Stone Protocol - 02/10/2022 12:16 pm CLINICAL HISTORY: Flank pain. acute kidney failure COMPARISON: <Comparisons> TECHNIQUE: Axial images were obtained without oral or IV contrast. Lack of contrast limits solid org an and vascular assessment. The whxse-dq-ixui spans the entirety of the system partially obscuring uppermost abdomen and lung bases. Coronal reformatted images were obtained and reviewed. All CT scans are performed using dose optimization technique as appropriate and may include automated exposure control or mA/KV adjustment according to patient size. FINDINGS: The lower lung mcbride are clear. Hiatal hernia, large. Right-sided ostomy is noted with moderate parastomal herniation of small bowel. There is no bowel obs truction caused by this. Imaged portions of the liver and spleen show no suspicious findings on non-contrast imaging. The panc reas and adrenal glands are normal. No pathologic lymphadenopathy in the abdomen or pelvis. No urinary tract stones or obstructive uropathy. No bowel obstruction, free air, free fluid or abscess. The appendix is not identified as a discrete s tructure, however, no secondary findings of appendicitis are identified. Prominent degenerative change in the lumbar spine. 6 mm anterolisthesis of L4 on 5. Vertebroplasty ce ment noted lower thoracic levels. 8.0 x 6.5 cm mass in the pelvis may be uterine fibroid is nonspecific. IMPRESSION: No urinary tract stones or obstructive uropathy. Pelvic mass noted as detailed which may be a large uterine fibroid but is nonspecific. Right-sided ostomy with peristomal small bowel hernia.
[2022-02-10 12:43] LABS: Urine Bacteria 20-50 /HPF (<20); Urine Mucus 1+ /HPF (NONE SEEN); Urine RBC <5 /HPF (NONE SEEN)
--- NOTE | 2022-02-10 13:21 | ER ---
Nurse's Notes [facility] Name: Neris Lloyd Age: 86 yrs Sex: Female : 1935 Arrival Date: 02/10/2022 Time: 09:03 Bed 8 Private MD: Saumya Newsome H Diagnosis: Acute kidney failure, unspecified;UTI/ Urinary tract infection, site not specified Presentation: 02/10 09:17 Chief complaint: Patient states: Unable to void x 2 days. Coronavirus screen: At this jl7 time, the client does not indicate any symptoms associated with coronavirus-19. Ebola Screen: No symptoms or risks identified at this time. Initial Sepsis Screen: Does the patient meet any 2 criteria? No. Patient's initial sepsis screen is negative. Does the patient have a suspected source of infection? No. Patient's initial sepsis screen is negative. Risk Assessment: Do you want to hurt yourself or someone else? Patient reports no desire to harm self or others. Onset of symptoms was February 08, 2022. Care prior to arrival: None. 09:17 Method Of Arrival: Ambulatory jl7 09:17 Acuity: JORGE 3 jl7 Triage Assessment: 09:18 General: Appears in no apparent distress. uncomfortable, Behavior is calm, cooperative, jl7 appropriate for age. Pain: Denies pain. Historical: - Allergies: 09:18 Bactrim; jl7 - PMHx: 09:18 Anxiety; Atrial Fib; Back pain; Hypertension; ovarian cancer; UTI; jl7 - PSHx: 09:18 Colostomy; Port a cath; jl7 - Immunization history:: Client reports receiving the 2nd dose of the Covid vaccine. - Social history:: Smoking status: Patient denies any tobacco usage or history of. Screenin:20 Abuse screen: Denies threats or abuse. Denies injuries from another. Nutritional bp screening: No deficits noted. Tuberculosis screening: No symptoms or risk factors identified. Fall Risk None identified. Assessment: 09:20 General: SEE TRIAGE NOTE. bp 09:28 Reassessment: 167ML NOTED ON BLADDER SCANNER. bp 11:00 Reassessment: PT REMAINS UNABLE TO URINATE, PROVIDER AWARE. CATH PENDING. bp 12:10 Reassessment: No changes from previously documented assessment. Patient and/or family bp updated on plan of care and expected duration. Pain level reassessed. 14:00 Reassessment: No changes from previously documented assessment. Patient and/or family bp updated on plan of care and expected duration. Pain level reassessed. ADMIT INITIATED. Vital Signs: 09:17 BP 116 / 77; Pulse 89; Resp 17; Temp 97.5; Pulse Ox 97% ; Weight 51.71 kg; Height 4 ft. jl7 11 in. (149.86 cm); 10:00 BP 124 / 77; Pulse 88; Resp 17; Pulse Ox 97% ; bp 11:00 BP 111 / 79; Pulse 86; Resp 16; Pulse Ox 96% ; bp 12:00 BP 118 / 79; Pulse 77; Resp 16; Pulse Ox 100% ; bp 14:00 BP 123 / 76; Pulse 72; Resp 16; Pulse Ox 100% ; bp 15:00 BP 150 / 94; Pulse 88; Resp 17; Pulse Ox 100% ; bp 16:00 BP 111 / 90; Pulse 88; Resp 16; Pulse Ox 100% ; bp 09:17 Body Mass Index 23.02 (51.71 kg, 149.86 cm) jl7 ED Course: 09:03 Patient arrived in ED. am2 09:04 Saumya Newsome DO is Private Physician. am2 09:08 Raymond Freeman PA is PHCP. cp 09:08 Mauro Bryant MD is Attending Physician. cp 09:11 Marck Silva, RUBY is Primary Nurse. bp 09:18 Triage completed. jl7 09:18 Arm band placed on right wrist. jl7 09:20 Patient has correct armband on for positive identification. Bed in low position. Call bp light in reach. Side rails up X2. 09:45 Accessed Port-a-Cath. bp 12:10 Barney cath inserted, using sterile technique, 16 Fr., by il, balloon inflated, to mb7 gravity drainage, clamped. urine specimen collected. returned hilary urine. Patient tolerated well. 12:17 CT Stone Protocol In Process Unspecified. EDMS 13:20 Dari Reynolds MD is Hospitalizing Provider. cp 16:10 No provider procedures requiring assistance completed. Patient admitted, IV remains in bp place. intact, bleeding controlled, No redness/swelling at site. Pressure dressing applied. Administered Medications: 09:45 Drug: NS 0.9% 250 ml Route: IV; Rate: bolus; Site: Port-a-cath; bp 15:40 Follow up: IV Status: Completed infusion; IV Intake: 250ml bp 13:45 Drug: Rocephin - (cefTRIAXone) 1 grams Route: IVPB; Infused Over: 30 mins; Site: bp Port-a-cath; 15:40 Follow up: IV Status: Completed infusion; IV Intake: 100ml bp 13:45 Drug: NS 0.9% 1000 ml Route: IV; Rate: 50 ml/hr; Site: Port-a-cath; bp 15:40 Follow up: IV Status: Infusion continued upon admission bp Medication: 12:10 VIS not applicable for this client. bp Intake: 15:40 IV: 100ml; Total: 100ml. bp 15:40 IV: 250ml; Total: 350ml. bp Outcome: 13:20 Decision to Hospitalize by Provider. cp 16:09 Admitted to Med/surg accompanied by tech, via stretcher, room 202, with chart, Report bp called to HARESH BELTRAN 16:09 Condition: stable 16:09 Instructed on the need for admit. 16:50 Patient left the ED. bp Signatures: Dispatcher [employer] EDMS Raymond Freeman PA PA cp Winnie Landon RN RN jl7 Mary Her am2 Marck Silva RN RN Melody Portillo mb7
--- NOTE | 2022-02-10 13:21 | EDPHYS ---
Physician Documentation [facility] Name: Neris Lloyd Age: 86 yrs Sex: Female : 1935 Arrival Date: 02/10/2022 Time: 09:03 Bed 8 Private MD: Saumya Newsome H ED Physician Mauro Bryant HPI: 02/10 09:20 This 86 yrs old Female presents to ER via Ambulatory with complaints of Urinary cp Retention. 09:20 The patient presents with urinary symptoms, decreased urine output. Onset: The cp symptoms/episode began/occurred yesterday. Associated signs and symptoms: Pertinent negatives: constipation, diarrhea, dysuria, fever, vaginal bleeding. Severity of symptoms: in the emergency department the symptoms are unchanged, despite home interventions. 11:52 Daughter reports patient's last dose of chemo was 01-27-2022 for ovarian CA. cp Historical: - Allergies: 09:18 Bactrim; jl7 - PMHx: 09:18 Anxiety; Atrial Fib; Back pain; Hypertension; ovarian cancer; UTI; jl7 - PSHx: 09:18 Colostomy; Port a cath; jl7 - Immunization history:: Client reports receiving the 2nd dose of the Covid vaccine. - Social history:: Smoking status: Patient denies any tobacco usage or history of. ROS: 09:25 Constitutional: Negative for body aches, chills, fever, poor PO intake. cp 09:25 Eyes: Negative for injury, pain, redness, and discharge. cp 09:25 Cardiovascular: Negative for chest pain, palpitations. 09:25 Respiratory: Negative for cough, shortness of breath, wheezing. 09:25 Abdomen/GI: Negative for abdominal pain, nausea, vomiting, and diarrhea. 09:25 : Positive for difficulty urinating. 09:25 Neuro: Negative for altered mental status, headache, weakness. 09:25 All other systems are negative. Exam: 09:30 Constitutional: The patient appears in no acute distress, alert, awake, cp non-diaphoretic, non-toxic, well developed, well nourished. 09:30 Head/Face: Normocephalic, atraumatic. cp 09:30 Eyes: Periorbital structures: appear normal, Conjunctiva: normal, no exudate, no injection, Sclera: no appreciated abnormality, Lids and lashes: appear normal, bilaterally. 09:30 ENT: External ear(s): are unremarkable, Nose: is normal, Mouth: Lips: moist, Oral mucosa: moist, Posterior pharynx: Airway: no evidence of obstruction, patent. 09:30 Chest/axilla: Inspection: normal. 09:30 Cardiovascular: Rate: normal, Rhythm: regular, Edema: is not appreciated, JVD: is not appreciated. 09:30 Respiratory: the patient does not display signs of respiratory distress, Respirations: normal, no use of accessory muscles, no retractions, labored breathing, is not present, Breath sounds: are clear throughout, no decreased breath sounds, no stridor, no wheezing. 09:30 Abdomen/GI: Inspection: abdomen appears normal, Bowel sounds: active, all quadrants, Palpation: soft, in all quadrants, mild abdominal tenderness, in the suprapubic area, rebound tenderness, is not appreciated, involuntary guarding, is not appreciated. 09:30 Back: CVA tenderness, is absent. 09:30 Skin: cellulitis, is not appreciated, no rash present. 09:30 Neuro: Orientation: no acute changes, per EMS, Mentation: is normal, Motor: moves all fours, strength is normal, Sensation: is normal. Vital Signs: 09:17 BP 116 / 77; Pulse 89; Resp 17; Temp 97.5; Pulse Ox 97% ; Weight 51.71 kg; Height 4 ft. jl7 11 in. (149.86 cm); 10:00 BP 124 / 77; Pulse 88; Resp 17; Pulse Ox 97% ; bp 11:00 BP 111 / 79; Pulse 86; Resp 16; Pulse Ox 96% ; bp 12:00 BP 118 / 79; Pulse 77; Resp 16; Pulse Ox 100% ; bp 14:00 BP 123 / 76; Pulse 72; Resp 16; Pulse Ox 100% ; bp 15:00 BP 150 / 94; Pulse 88; Resp 17; Pulse Ox 100% ; bp 16:00 BP 111 / 90; Pulse 88; Resp 16; Pulse Ox 100% ; bp 09:17 Body Mass Index 23.02 (51.71 kg, 149.86 cm) jl7 MDM: 09:11 Patient medically screened. cp 10:00 Differential diagnosis: kidney stone, Neoplasm urinary tract infection, dehydration, cp acute kidney failure. 12:40 Physician consultation: Dari Reynolds MD was called at 12:40, left message on cp voicemail. 13:15 Data reviewed: vital signs, nurses notes, lab test result(s), radiologic studies, CT cp scan, and as a result, I will admit patient. 02/10 09:17 Order name: Urine Microscopic Only; Complete Time: 13:12 cp 02/10 09:27 Order name: CBC with Diff; Complete Time: 12:30 cp 02/10 10:43 Interpretation: Normal except: HGB 11.4; HCT 34.1; PLT 94; RDW 16.0. cp 02/10 09:27 Order name: CMP; Complete Time: 11:42 cp 02/10 11:43 Interpretation: Normal except: NA 134; BUN 28; CRE 2.06; GFR 23; AST 45; ALB 3.3; A/G cp 1.0. 02/10 10:15 Order name: CBC Smear Scan; Complete Time: 12:30 EDMS 02/10 12:08 Order name: Urine Dipstick-Ancillary; Complete Time: 12:30 EDWA 02/10 12:30 Interpretation: Normal except: UKET Trace; UPROT Trace. cp 02/10 12:47 Order name: Urine Culture; Complete Time: 11:52 EDMS 02/10 13:19 Order name: Procalcitonin; Complete Time: 11:52 cp 02/10 13:19 Order name: Lactate; Complete Time: 11:52 02/10 13:19 Order name: Blood Culture Adult (2) cp 02/10 13:38 Order name: COVID-19 SARS RT PCR (Document "Date of Onset" if Symptomatic); Complete cp Time: 11:52 02/10 13:39 Order name: COVID-19 SARS RT PCR (Document "Date of Onset" if Symptomatic) bp 02/10 13:55 Order name: CBC with Automated Diff EDMS 02/10 13:55 Order name: CBC with Automated Diff; Complete Time: 11:52 EDMS 02/10 13:55 Order name: Comprehensive Metabolic Panel EDWA 02/10 09:17 Order name: Bladder Scanner: pre and post void; Complete Time: 09:28 cp 02/10 09:17 Order name: Urine Dipstick-Ancillary (obtain specimen); Complete Time: 12:09 cp 02/10 09:27 Order name: IV Saline Lock; Complete Time: 09:50 cp 02/10 09:27 Order name: Labs collected and sent; Complete Time: 09:50 cp 02/10 11:13 Order name: Barney; Complete Time: 12:09 cp 02/10 11:51 Order name: CT Stone Protocol; Complete Time: 12:30 cp 02/10 13:55 Order name: Heart Healthy EDMS 02/10 13:55 Order name: Comprehensive Metabolic Panel; Complete Time: 11:52 EDMS 02/10 13:55 Order name: Comprehensive Metabolic Panel EDWA 02/10 13:55 Order name: Comprehensive Metabolic Panel EDWA Administered Medications: 09:45 Drug: NS 0.9% 250 ml Route: IV; Rate: bolus; Site: Port-a-cath; bp 15:40 Follow up: IV Status: Completed infusion; IV Intake: 250ml bp 13:45 Drug: Rocephin - (cefTRIAXone) 1 grams Route: IVPB; Infused Over: 30 mins; Site: bp Port-a-cath; 15:40 Follow up: IV Status: Completed infusion; IV Intake: 100ml bp 13:45 Drug: NS 0.9% 1000 ml Route: IV; Rate: 50 ml/hr; Site: Port-a-cath; bp 15:40 Follow up: IV Status: Infusion continued upon admission bp Disposition: 15:51 Co-signature as Attending Physician, Mauro Bryant MD. rn Disposition Summary: 02/10/22 13:20 Hospitalization Ordered Hospitalization Status: Inpatient Admission cp Provider: Dari Reynolds cp [facility] cp Condition: Stable cp Problem: new cp Symptoms: have improved cp Bed/Room Type: Standard cp Room Assignment: 202(02/10/22 15:10) eb Diagnosis - Acute kidney failure, unspecified cp - UTI/ Urinary tract infection, site not specified cp Forms: - Medication Reconciliation Form cp - SBAR form cp Signatures: Dispatcher [employer] Mauro Sutton MD MD rn Page, Corey, PA PA cp Winnie Landon RN RN Marck Pelayo RN RN Kenia Garcia Corrections: (The following items were deleted from the chart) 15:10 13:20 cp eb
[2022-02-10] MEDS ORDERED: CEFTRIAXONE 1000 MG/VIAL ONE (13:42)
[2022-02-10] MEDS ORDERED: NA CHLORIDE 0.9% 1,000 ML ONE (13:43)
[2022-02-10] MEDS ORDERED: NA CHLORIDE 0.9% 100 ML ONE (13:43)
--- NOTE | 2022-02-10 13:48 | P.HP ---
Certification for Inpatient Patient admitted to: Observation With expected LOS: <2 Midnights Patient will require the following post-hospital care: None Practitioner: I am a practitioner with admitting privileges, knowledge of patient current condition, hospital course, and medical plan of care. Services: Services provided to patient in accordance with Admission requirements found in Title 42 Section 412.3 of the Code of Federal Regulations Patient History Date of Service: 02/10/22 Reason for admission: Decreased urine output History of Present Illness: 86-year-old female with past medical history of hypertension, anxiety, A. fib on chronic anticoagulation, ovarian cancer on chemo at [facility], Recent lumbar compression fractures presented with complaint of decreased urine output 3 days. She admits to recently having a bout of loose stools via ileostomy bowel movement since last Sunday.. She daughter at bedside states she was recently restarted on chemo 2 weeks ago after a 6-month hiatus. She had blood work done pre-chemo but has not had any done since the last 2 weeks. Daughter is unsure of the name of the chemo medication but thinks it might be vinblastine . She denies any fever or chills. She denies any dizziness. On arrival in the ED she was noted with elevated creatinine of 2.06 up from a baseline of 0.7 during hospital stay 1-month ago. She was also noted to have urine suggestive of UTI. CT scan of the abdomen shows uterine fibroid with no evidence of hydronephrosis or obstructive uropathy. She has been admitted for acute kidney injury and UTI. Allergies sulfamethoxazole [From Bactrim] Allergy (Verified 12/25/17 16:34) Unknown Home Medications: Esomeprazole Mag Trihydrate [Nexium] 40 mg PO DAILY 03/29/17 Umeclidinium Brm/Vilanterol Tr [Anoro Ellipta 62.5-25 Mcg INH] 1 inh IH DAILY 09/01/17 clonazePAM [Klonopin*] 1 mg PO BID 12/25/17 Docusate [Colace Cap*] 250 mg PO BID 12/30/21 Pregabalin [Lyrica*] 1 cap PO TID 12/30/21 Rivaroxaban [Xarelto] 20 mg PO DAILY 12/30/21 Docusate [Colace Cap*] 100 mg PO BID cap 01/04/22 Hydrocodone 5/APAP 325 [Holderness 5/325*] 1 tab PO Q6H PRN #15 tab 01/04/22 Polyethyl Gly 3350 [Glycolax*] 17 gm PO DAILY PRN udbot 01/04/22 - Past Medical/Surgical History Diabetic: No -: A. fib -: Stage IV ovarian cancer -: Obstructive sleep apnea -: Arthritis -: Chronic back pain -: Anxiety -: GERD with hiatal hernia -: Fibromyalgia -: Atrial fibrillation -: Partial hysterectomy -: Multiple back surgeries -: hemorrhoidectomy -: Colostomy Psychosocial/ Personal History: She is . She lives with her daughter. - Family History Father -: Heart disease, Hypertension - Social History Smoking Status: Never smoker Counseled patient to stop smoking for: less than 10 minutes Smoking therapy provided: No Patient receptive to therapy: No Alcohol use: No CD- Drugs: No Caffeine use: Yes Place of Residence: Home Review of Systems 10-point ROS is otherwise unremarkable Physical Examination - Physical Exam General: Alert, In no apparent distress, Oriented x3 HEENT: Atraumatic, Normocephalic, PERRLA Neck: Supple, 2+ carotid pulse no bruit, JVD not distended Respiratory: Clear to auscultation bilaterally, Normal air movement Cardiovascular: No edema, Regular rate/rhythm, Normal S1 S2 Gastrointestinal: Normal bowel sounds, Soft and benign, Non-distended, Other (ileostomy insitu ) Musculoskeletal: No clubbing, No swelling Neurological: Normal speech, Normal strength at 5/5 x4 extr, Sensation intact, Cranial nerves 3-12 intact - Studies Laboratory Data (last 24 hrs) 02/10/22 09:45: Sodium 134 L, Potassium 3.8, BUN 28 H, Creatinine 2.06 H, Glucose 94, Total Bilirubin 0.3, AST 45 H, ALT 22, Alkaline Phosphatase 101 02/10/22 09:45: WBC 4.4, Hgb 11.4 L, Hct 34.1 L, Plt Count 94 L Assessment and Plan - Advance Directives Does patient have a Living Will: No Does patient have a Durable POA for Healthcare: No - Code Status/Comfort Care Code Status: Full Code Physician Review: Patient Assessed, Agree with Above Assessment and Plan Physician Review Additional Text: Impression Acute kidney injurylikely due to prerenal versus possibility of tubular injury from chemo Ovarian cancer on chemo UTI History of hypertension A. fib on chronic anticoagulationrate controlled Ileostomy status Plan Will admit to observation Start gentle IV fluid Add sodium bicarb tabs Obtain urine sodium/creatinine for fractional excretion of sodium Start empirical antibiotics with Rocephin Renally dose all meds Avoid nephrotoxin Optimize blood pressure Continue chronic anticoagulation with Xarelto for DVT prophylaxis as well as A. fib Disposition possible hospital stay for less than 48 hours Time Spent Managing Pts Care (In Minutes): 60
[2022-02-10] MEDS ORDERED: ACETAMINOPHEN 500 MG TAB PO PRN (13:49)
[2022-02-10] MEDS ORDERED: ALBUTEROL 2.5 MG/3 ML NEB SOL NEB PRN (13:49)
[2022-02-10] MEDS ORDERED: MORPHINE 2 MG/ML SYR IV PRN (13:49)
[2022-02-10] MEDS ORDERED: POLYETHYL GLY 3350 17 GM/DOSE PO PRN (13:50)
[2022-02-10] MEDS ORDERED: HYDROCODONE/APAP 5/325 MG TAB PO PRN (13:50)
[2022-02-10] MEDS ORDERED: NA CHLORIDE 0.9% 1,000 ML IV SCH (14:00)
[2022-02-10] MEDS: NA CHLORIDE 0.9% 1,000 ML IV SCH (16:44)
[2022-02-10] MEDS: PREGABALIN 50 MG CAP PO SCH ×2 (16:44→20:34)
[2022-02-10] MEDS ORDERED: POTASSIUM 25 MEQ EFFERV TAB PO ONE (17:00)
[2022-02-10 17:07] VITALS: BMI 23.0
[2022-02-10] MEDS: SODIUM BICARB 325 MG TAB PO SCH (20:34)
[2022-02-10] MEDS: DOCUSATE NA 100 MG CAP PO SCH (20:34)
[2022-02-10] MEDS: clonazePAM 1 MG TAB PO PRN (23:42)
[2022-02-11 05:18] LABS: Absolute Lymphocytes (CBC) 1.6 K/uL (0.7-4.9); Hematocrit 29.5 % (36.0-45.0); Lymphocytes % 34.1 % (15.3-44.8); MPV 8.8 fL (7.6-11.3); RBC Red Blood Cell Count 3.43 M/uL (3.86-4.86)
[2022-02-11 05:33] LABS: Albumin 2.8 g/dL (3.4-5.0); Bilirubin Total 0.2 mg/dL (0.2-1.0); Potassium 4.4 mmol/L (3.5-5.1); Protein, Total 5.5 g/dL (6.4-8.2)
[2022-02-11] MEDS: NA CHLORIDE 0.9% 1,000 ML IV SCH ×2 (06:16→17:15)
[2022-02-11] MEDS ORDERED: HOME MED 1 EA UNK (Esomeprazole Mag Trihydrate [Nexium] 40 MG Capsule.Dr) PO SCH (09:00)
[2022-02-11] MEDS: HOME MED 1 EA UNK (Umeclidinium Brm/Vilanterol Tr [Anoro Ellipta 62.5-25 Mcg Inh] Blst.W.D IH SCH (09:00)
[2022-02-11] MEDS: CEFTRIAXONE 1,000 MG in NA CHLORIDE 0.9% 50 ML IVPB SCH (10:03)
[2022-02-11] MEDS: clonazePAM 1 MG TAB PO PRN ×2 (10:03→20:10)
[2022-02-11] MEDS: PANTOPRAZOLE 40MG TABLET PO SCH (10:03)
[2022-02-11] MEDS: PREGABALIN 50 MG CAP PO SCH ×3 (10:03→20:10)
[2022-02-11] MEDS: DOCUSATE NA 100 MG CAP PO SCH (10:03)
[2022-02-11] MEDS: SODIUM BICARB 325 MG TAB PO SCH ×2 (10:04→20:10)
[2022-02-11] MEDS: RIVAROXABAN 20 MG TABLET PO SCH (10:04)
[2022-02-11 11:09] VITALS: O2SAT 100
[2022-02-11] MEDS: ONDANSETRON 4 MG/2 ML VIAL IV PRN (15:03)
--- NOTE | 2022-02-11 15:16 | P.PN ---
Subjective Date of Service: 02/12/22 Chief Complaint: Decreased urine output Subjective: No new changes, Improving Physical Examination - Vital Signs Temperature: 97.9 F Blood Pressure: 110/75 Pulse: 67 Respirations: 14 Pulse Ox (%): 100 - Physical Exam General: Alert, Oriented x3 HEENT: Atraumatic, Normocephalic Neck: Supple Respiratory: Normal air movement Cardiovascular: Regular rate/rhythm, Normal S1 S2 Gastrointestinal: Soft and benign Musculoskeletal: No swelling Neurological: Normal speech Assessment And Plan - Plan Impression Acute kidney injuryresolving. Ovarian cancer on chemo UTI History of hypertension A. fib on chronic anticoagulationrate controlled Ileostomy status Plan Patient improved significantly with IV hydration. Creatinine improved from 2.0 to 0.96 today. She reports no increased output from her ileostomy. So far urine and blood cultures drawn has no growth. Continue hydration and follow symptomatology closely. She is for possible discharge in a.m. Physician Review: Patient Assessed, Agree with Above Assessment and Plan
[2022-02-11] MEDS ORDERED: DOCUSATE NA 100 MG CAP PO SCH (21:00)
[2022-02-12 06:07] LABS: Albumin 2.5 g/dL (3.4-5.0); Bilirubin Total 0.3 mg/dL (0.2-1.0); Potassium 4.2 mmol/L (3.5-5.1); Protein, Total 5.2 g/dL (6.4-8.2)
[2022-02-12] MEDS: ONDANSETRON 4 MG/2 ML VIAL IV PRN (08:14)
[2022-02-12] MEDS: PANTOPRAZOLE 40MG TABLET PO SCH (08:15)
[2022-02-12] MEDS: SODIUM BICARB 325 MG TAB PO SCH (08:15)
[2022-02-12] MEDS: CEFTRIAXONE 1,000 MG in NA CHLORIDE 0.9% 50 ML IVPB SCH (08:15)
[2022-02-12] MEDS: PREGABALIN 50 MG CAP PO SCH ×2 (08:16→14:20)
[2022-02-12] MEDS: clonazePAM 1 MG TAB PO PRN (08:16)
[2022-02-12] MEDS: RIVAROXABAN 20 MG TABLET PO SCH (08:16)
[2022-02-12] MEDS: HOME MED 1 EA UNK (Umeclidinium Brm/Vilanterol Tr [Anoro Ellipta 62.5-25 Mcg Inh] Blst.W.D IH SCH (08:17)
--- NOTE | 2022-02-12 08:26 | P.DS ---
Admission Date: 02/10/22 Discharge Date: 02/12/22 Disposition: ROUTINE DISCHARGE Discharge Condition: GOOD Reason for Admission: Decreased urine output Brief History of Present Illness: 86-year-old female with past medical history of hypertension, anxiety, A. fib on chronic anticoagulation, ovarian cancer on chemo at [facility], Recent lumbar compression fractures presented with complaint of decreased urine output 3 days. She admits to recently having a bout of loose stools via ileostomy bowel movement since last Sunday.. She daughter at bedside states she was recently restarted on chemo 2 weeks ago after a 6-month hiatus. She had blood work done pre-chemo but has not had any done since the last 2 weeks. Daughter is unsure of the name of the chemo medication but thinks it might be vinblastine . She denies any fever or chills. She denies any dizziness. On arrival in the ED she was noted with elevated creatinine of 2.06 up from a baseline of 0.7 during hospital stay 1-month ago. She was also noted to have urine suggestive of UTI. CT scan of the abdomen shows uterine fibroid with no evidence of hydronephrosis or obstructive uropathy. She has been admitted for acute kidney injury and UTI. Hospital Course: She was admitted for IV hydration and monitoring labs. She had significant improvement in symptomatology and she felt less fatigued. Her creatinine was 2 on admission but this improved to 0.56 this morning. She is deemed stable for discharge to be followed up by primary care doctor and also continue with management of ovarian cancer and other medical issues as per prim danielle team/oncology team. Vital Signs/Physical Exam: Temp Pulse Resp BP Pulse Ox 98.6 F 95 H 17 99/65 91 02/12/22 04:00 02/12/22 04:00 02/12/22 04:00 02/12/22 04:00 02/12/22 04:00 General: Alert, Oriented x3 HEENT: Atraumatic, Normocephalic Respiratory: Normal air movement Cardiovascular: Regular rate/rhythm, Normal S1 S2 Gastrointestinal: Soft and benign Musculoskeletal: No swelling Neurological: Normal speech Laboratory Data at Discharge: WBC 4.6 K/uL (4.3-10.9) 02/11/22 04:25 Hgb 9.9 g/dL (12.0-15.0) L 02/11/22 04:25 Hct 29.5 % (36.0-45.0) L 02/11/22 04:25 Plt Count 86 K/uL (152-406) L 02/11/22 04:25 Sodium 140 mmol/L (136-145) 02/12/22 05:30 Potassium 4.2 mmol/L (3.5-5.1) 02/12/22 05:30 BUN 9 mg/dL (7-18) 02/12/22 05:30 Creatinine 0.59 mg/dL (0.55-1.3) 02/12/22 05:30 Glucose 94 mg/dL (74-106) 02/12/22 05:30 Total Bilirubin 0.3 mg/dL (0.2-1.0) 02/12/22 05:30 AST 32 U/L (15-37) 02/12/22 05:30 ALT 19 U/L (12-78) 02/12/22 05:30 Alkaline Phosphatase 98 U/L (45-117) 02/12/22 05:30 Home Medications: Esomeprazole Mag Trihydrate [Nexium] 40 mg PO DAILY 03/29/17 Umeclidinium Brm/Vilanterol Tr [Anoro Ellipta 62.5-25 Mcg INH] 1 inh IH DAILY 09/01/17 clonazePAM [Klonopin*] 1 mg PO BID 12/25/17 Docusate [Colace Cap*] 100 mg PO BID 12/30/21 Pregabalin [Lyrica*] 1 cap PO BID 12/30/21 Rivaroxaban [Xarelto] 20 mg PO DAILY 12/30/21 Montelukast [Singulair*] 1 tab PO DAILY 02/10/22 Diet: Regular Activity: Ad fox Followup: Jerod MAYS,Saumya Mccullough DO [Primary Care Provider] -
[2022-02-12] MEDS ORDERED: MONTELUKAST 10 MG TAB PO SCH (09:00)
[2022-02-12] MEDS ORDERED: MONTELUKAST 5 MG PO SCH (09:00)
[2022-02-12 15:11] VITALS: BP 128/75; TEMP 98.5
[2022-02-12] MEDS ORDERED: HEPARIN 500 UNIT/5 ML SYR IV PRN (16:21)
[2022-02-12] MEDS ORDERED: HEPARIN SOD 100 UNIT/ML FLUSH IV PRN (16:21)
== END 2022-02-12 17:37 | disposition home or self-care (01) ==
LOC: ER 09:03 → ERHOLD 13:59 → 2ND 16:09
PROVIDERS: ADMIT Internal Medicine; ATTEND Internal Medicine Nephrology
DX: N17.9 Acute kidney failure, unspecified (principal); N39.0 Urinary tract infection, site not specified; C56.9 Malignant neoplasm of unspecified ovary; I48.91 Unspecified atrial fibrillation; I10 Essential (primary) hypertension; F41.9 Anxiety disorder, unspecified; M48.56XA Collapsed vertebra, not elsewhere classified, lumbar region, initial encounter for fracture; G47.33 Obstructive sleep apnea (adult) (pediatric); M19.90 Unspecified osteoarthritis, unspecified site; M54.9 Dorsalgia, unspecified; G89.29 Other chronic pain; K21.9 Gastro-esophageal reflux disease without esophagitis; K44.9 Diaphragmatic hernia without obstruction or gangrene; M79.7 Fibromyalgia; Z93.2 Ileostomy status; Z79.01 Long term (current) use of anticoagulants; Z88.3 Allergy status to other anti-infective agents; Z82.49 Family history of ischemic heart disease and other diseases of the circulatory system
CPT/HCPCS: 96365; 87040 ×2; 87088; 85025 ×2; 87086; 36415 ×2; 83605; 80053 ×3; 84145; 76377; 74176; 51702; 99285; 96366; U0003; J2270; J1642; J7050; J7030 ×4; J2405 ×2; 81003; 81015; G0378

== ENCOUNTER 2022-06-13 11:24 | Emergency (ER) | payer OTHER ==
--- OUTSIDE RECORDS SUMMARY | 2022-06-13 11:31 | XMS REPORT | Clinical Summary ---
:1935 Author Organization [facility] MD Christina [facility] Address [address] [place] [address] Care Team Providers Name Role Phone Mayte Kaur MD Unavailable Almita Batres MD Primary Care Provider Allergies Active [...] unspecified ovary, Gastroesophageal reflux disease pregabalin (LYRICA) Take 1 90 capsule 2 Active 50 mg capsule (50 2 capsuleIndications: mg) by mouth Chronic pain 3 (three) times a day. ondansetron (Zofran) Take 1 tablet 30 tablet 3 Active 8 mg (8 mg) by 2 tabletIndications: mouth every 8 Metastatic cancer to (eight) hours the peritoneum, as needed for Neoplasm, malignant nausea or 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> vomiting. penicillin V 4 (four) 0 Active potassium (VEETID) times a day. 2 500 mg tablet cyclophosphamide Take 1 21 capsule 0 06/26/20 Ac tive (CYTOXAN) 50 mg capsule (50 2 22 capsuleIndications: mg) by mouth Serous daily for 21 cystadenocarcinoma, doses. 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 diclofenac sodium Apply 2 g 450 g 1 04/21/20 Di scontinued (Voltaren) 1 % topically to 2 22 (T herapy gelIndications: affected comp leted) Chronic back pain area(s) 3 (three) times a day. diclofenac sodium Apply 2 g 100 g 2 04/21/20 Di scontinued (Voltaren) 1 % topically to 2 22 (T herapy gelIndications: affected comp leted) Chronic pain area(s) 4 (four) times a day. pregabalin (LYRICA) TAKE 1 90 capsule 0 04/21/20 Discontinued 50 mg CAPSULE BY 2 22 (Reorder) capsuleIndications: MOUTH THREE Chronic pain TIMES DAILY ciprofloxacin HCl Take 1 tablet 10 tablet 0 05/18/20 Discontinued (Cipro) 500 mg (500 mg) by 2 22 tabletIndications: mouth twice Dysuria daily. cyclophosphamide Take 1 21 capsule 0 05/12/20 Di scontinued (CYTOXAN) 50 mg capsule (50 2 22 (R eorder) capsuleIndications: mg) by mouth Neoplasm, malignant daily for 21 of ovary doses. 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 07/30/2020 Gastroesophageal reflux disease 07/30/2020 Herpes zoster 07/30/2020 Deep venous thrombosis 07/30/2020 Cancer associated pain 07/30/2020 Coronary atherosclerosis of [place] coronary artery 05/2020 Essential hypertension 07/29/2020 Mixed hyperlipidemia 07/29/2020 Obstructive sleep apnea syndrome 07/29/2020 Rheumatoid arthritis 07/29/2020 Fibromyalgia 12/23/2018 Parastomal hernia without obstruction or gangrene 11/2018 Serous cystadenocarcinoma, 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 Staging: Clinical stage from 04/03: Stage IIIC (Primary) - Signed by Almita Batres MD on 07/31/2020 Clinical stage from 03/19/2019: Stage III C (Recurrent) - Signed by Almita Batres MD on 07/31/2020 Atrial fibrillation 02/28/2018 Chronic obstructive pulmonary disease 02/28/2018 Diverticulitis of colon 02/28/2018 Encounters Date Type Specialty Care Team Description 06/02/2022 Office Visit Gynecology Almita Batres Serous cysta denocarcinoma, 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> (Primary Dx); MD Chris 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; Leana Morales, Encounter for examination prior to antineoplastic chemotherapy; PA Rash; Dental caries, not otherwise specified 06/02/2022 Clinical Support Infusion Services Almita Batres MD Silvan, Maureen Faith, RUBY 06/02/2022 Travel 05/12/2022 Office Visit Gynecology Adriane Paul PA 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> (Primary Dx); Leana Morales, Metastatic ca ncer to the peritoneum; PA Encounter for e xamination prior to antineoplastic chemotherapy; Tinnitus of rig ht ear 05/12/2022 Clinical Support Infusion Services Almita Batres MD Pakeltis, Melody J, RN 05/12/2022 Travel 05/12/2022 Orders Only Gynecology Leana Morales, Neoplasm, mal ignant PA of ovary <Bilat eral> (Primary Dx) 05/12/2022 Orders Only Gynecology Almita Batres ma lignant 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> (Primary Dx); MD Chris Metastatic canc er to the peritoneum 04/21/2022 Infusion Infusion Services Almita Batres Metasta tic cancer to the peritoneum (Primary Dx); MD Chris 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> Tammie Hernández RN 04/21/2022 Office Visit Gynecology Almita Batres ma lignant 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> (Primary Dx); MD Chris Metastatic canc er to the peritoneum; Encounter for e xamination prior to antineoplastic chemotherapy; Dysuria 04/21/2022 Orders Only Pain Medicine Jacek Kimball Chronic pain MD Aisha 04/21/2022 Travel 04/21/2022 Refill Pain Medicine Jacek Kimball Chronic pain MD Aisha 04/20/2022 Hospital Encounter Radiology Gaby Escobar, Metast atic cancer to the peritoneum; ASSISTANT MANAGER PT Encounter for e xamination prior to antineoplastic chemotherapy; Neoplasm, malig nant 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> 04/20/2022 Hospital Encounter Vascular Access Almita Batres and Procedures MD Amita Perez Bhumarat S, RN 04/20/2022 Hospital Encounter Lab Gaby Escobar, Metast atic cancer to the peritoneum; ASSISTANT MANAGER PT Neoplasm, malig nant 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>; Encounter for e xamination prior to antineoplastic chemotherapy 04/20/2022 Travel 03/24/2022 Infusion Infusion Services Almita Batresa tic cancer to the peritoneum (Primary Dx); MD Francisco Perez, 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> Monica Andrews RN 03/24/2022 Office Visit Gynecology Adriane Paul PA Metastatic c ancer to the peritoneum; Encounter for e xamination prior to antineoplastic chemotherapy; Neoplasm, malig nant of ovary <Bilateral> 03/24/2022 Clinical Support Infusion Services Almita Batres MD 03/24/2022 Orders Only Gynecology Almita Batres, ma lignant of ovary <Bilateral> (Primary Dx); MD Chris Metastatic canc er to the peritoneum 03/24/2022 Travel 02/24/2022 Infusion Infusion Services Adriane Paul P A 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 (Alicia brian Dx); Francisco Crowley, malig nant of ovary <Bilateral> Dallas Pelayo RN 02/24/2022 Office Visit Gynecology Almita Batres, ma lignant of ovary <Bilateral> (Primary Dx); MD Chris 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; Adriane Paul PA Encounter fo r examination prior to antineoplastic chemotherapy; Cancer associat ed pain 02/24/2022 Clinical Support Infusion Services Almita Batres MD 02/24/2022 Orders Only Gynecology Almita Batres ma lignant D., MD of ovary <Bilat eral> (Primary Dx) 02/24/2022 Travel 02/24/2022 Orders Only Gynecology Batres, Almita Neoplasm, ma lignant of ovary <Bilateral> (Primary Dx); MD Chris Metastatic canc er to the peritoneum 02/22/2022 Refill Pain Medicine Jacek Kimball Chronic pain MD Aisha 02/17/2022 Clinical Support Infusion Services Almita Batres MD 02/17/2022 Procedure visit Pain Medicine Jacek Kimball Chronic b ack pain (Primary Dx); MD Aisha Cancer associat ed pain; Chronic pain 02/17/2022 Orders Only Gynecology Adriane Paul PA Neoplasm, ma lignant of ovary <Bilat eral> (Primary Dx) 02/17/2022 Telephone Surgical Oncology Karla Williamson RN 02/17/2022 Travel 02/01/2022 Telephone Pain Medicine Meche Crystal RN 01/27/2022 Infusion Infusion Services Nick Bustillo, Metasta tic cancer to the peritoneum (Primary Dx); PA 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> Hazel Lewis RN 01/27/2022 Office Visit Gynecology Almita Batres Neoplasm, ma lignant of ovary <Bilateral> (Primary Dx); MD Chris Metastatic canc er to the peritoneum; Encounter for e xamination prior to antineoplastic chemotherapy 01/27/2022 Office Visit Pain Medicine Jacek Kimball Chronic back pain (Primary Dx); MD Aisha Chronic pain 01/27/2022 Clinical Support Infusion Services Almita Batres MD 01/27/2022 Travel 01/26/2022 Orders Only Gynecology Almita Batres, ma aylin Perez MD of ovary <Bilat eral> (Primary Dx) 01/24/2022 Orders Only Gynecology Nick Bustillo, Neoplasm, ma lignant of ovary <Bilateral> (Primary Dx); PA Metastatic canc er to the peritoneum 01/23/2022 Orders Only Gynecology Nick Bustillo PA 01/23/2022 Orders Only Gynecology Nick Bustillo PA 01/17/2022 Hospital Encounter Radiology Adriane Paul PA Malign ant neoplasm of unspecified ovary; Metastatic canc er to the peritoneum; Encounter for e xamination prior to antineoplastic chemotherapy; Neoplasmshelby nant of ovary <Bilateral> 01/17/2022 Travel 01/16/2022 Orders Only Gynecology Nick Bustillo, Neoplasm, ma lignant of ovary <Bilateral> (Primary Dx); PA Metastatic canc er to the peritoneum 01/13/2022 Orders Only Gynecology Almita Batres MD 11/22/2021 Orders Only Gynecology Nick Bustillo, Neoplasm, ma lignant of ovary <Bilateral> (Primary Dx); PA Metastatic canc er to the peritoneum 11/22/2021 Orders Only Gynecology Adriane Paul, PA Malignant ne oplasm of unspecified ovary (Primary Dx); Metastatic canc er to the peritoneum; Encounter for e xamination prior to antineoplastic chemotherapy; Neoplasm, malig nant of ovary <Bilateral> 11/04/2021 Infusion Infusion Services Nick Bustillo, Metasta tic cancer to the peritoneum (Primary Dx); PA Neoplasm, malig nant of ovary <Bilateral> 11/04/2021 Office Visit Gynecology Almita Batres Neoplasm, ma lignant of ovary <Bilateral> (Primary Dx); MD Chris Malignant neoplasm of unspecified ovary; Nick Bustillo, Metastatic c ancer to the peritoneum; PA Encounter for e xamination prior to antineoplastic chemotherapy 11/04/2021 Clinical Support Infusion Services Almita Batres ignolayinka neoplasm of MD Chris unspecified ova ry 11/04/2021 Travel 11/03/2021 Orders Only Gynecology Almita Batres Neoplasm, ma lignant of ovary <Bilateral> (Primary Dx); MD Chris Metastatic canc er to the peritoneum 10/27/2021 Office Visit Pain Medicine Jacek Kimball Chronic pain (Primary Dx); MD Aisha Chronic back pa in 10/27/2021 Travel 10/14/2021 Infusion Infusion Services Nick Bustillo, Metasta tic cancer to the peritoneum (Primary Dx); PA Neoplasm, malig nant of ovary <Bilateral> 10/14/2021 Office Visit Gynecology Almita Batres Neoplasm, ma lignant of ovary <Bilateral> (Primary Dx); MD Chris Malignant neoplasm of unspecified ovary; Nick Bustillo, Metastatic c ancer to the peritoneum; PA Encounter for e xamination prior to antineoplastic chemotherapy 10/14/2021 Clinical Support Infusion Services Almita Batres MD 10/14/2021 Orders Only Gynecology Almita Batres Neoplasm, ma lignant MD Chris of ovary <Bilat eral> (Primary Dx) 10/14/2021 Travel 10/11/2021 Telemedicine Hematology Kelsey Meyer Long-term use of anticoagulants (Primary Dx); MD Garrett H/O: atrial fibrillation; Holt 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> Michael Rao MD 10/11/2021 Refill Pain Medicine Jacek Kimball Chronic pain MD Aisha 10/09/2021 Hospital Encounter Vascular Access Almita Batres for and Procedures MD Chris adjustment and Coyle, management of Madina John configuration management analyst access device (Primary Dx) 10/09/2021 Travel 10/06/2021 Orders Only Gynecology Almita Batres Neoplasm, ma lignant of ovary <Bilateral> (Primary Dx); MD Chris Metastatic canc er to the peritoneum 10/06/2021 Orders Only Gynecology Nick Bustillo, Neoplasm, ma lignant PA of ovary <Bilat eral> (Primary Dx) 10/05/2021 Orders Only Gynecology Nick Bustillo, Neoplasm, ma lignant PA of ovary <Bilat eral> (Primary Dx) 10/05/2021 Orders Only Gynecology Nick Bustillo, Thrombosis o f PA internal jugula r vein <Right side> (P rimary Dx) 10/04/2021 Hospital Encounter Radiology Nick Bustillo, Malign ant neoplasm of unspecified ovary; PA Metastatic canc er to the peritoneum; Encounter for e xamination prior to antineoplastic chemotherapy; Neoplasm, malig nant of ovary <Bilateral> 10/04/2021 Hospital Encounter Lab Nick Bustillo, Metast atic cancer to the peritoneum; PA Neoplasm, malig nant of ovary <Bilateral> 10/04/2021 Travel 09/14/2021 Infusion Infusion Services Nick Bustillo, Metasta tic cancer to the peritoneum (Primary Dx); PA Neoplasm, malig nant of ovary <Bilateral> 09/14/2021 Office Visit Gynecology Almita Batres Neoplasm, ma lignant of ovary <Bilateral> (Primary Dx); MD Chris Malignant neopl asm of unspecified ovary; Metastatic canc er to the peritoneum; Encounter for e xamination prior to antineoplastic chemotherapy; Dysuria 09/14/2021 Clinical Support Infusion Services Almita Batres MD 09/14/2021 Travel 09/13/2021 Orders Only Gynecology Almita Batres ma lignant D., MD of ovary <Bilat eral> (Primary Dx) 08/29/2021 Orders Only Gynecology Adriane Paul PA Malignant ne oplasm of unspecified ovary (Primary Dx); Metastatic canc er to the peritoneum 08/29/2021 Telephone Gynecology Sara, November Medication Ref ill L, RN 08/24/2021 Infusion Infusion Services 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 (Primary Dx); Neoplasm, malig nant of ovary <Bilateral> 08/24/2021 Office Visit Gynecology Almita Batres ma lignant of ovary <Bilateral> (Primary Dx); MD Chris Malignant neopl asm of unspecified ovary; Metastatic canc er to the peritoneum; Encounter for e xamination prior to antineoplastic chemotherapy 08/24/2021 Clinical Support Infusion Services Almita Batres MD 08/24/2021 Travel 08/23/2021 Orders Only Gynecology Almita Batres ma lignant D., MD of ovary <Bilat eral> (Primary Dx) 08/15/2021 Ancillary Procedure Radiology Almita Batres Malleonie nanlucien neoplasm of unspecified ovary; MD Chris Mass of muscle of left upper limb [...] Aisha Chronic pain 07/29/2021 Office Visit Gynecology Almita Batres Malignant ne oplasm of unspecified ovary (Primary Dx); MD Chris Encounter for e xamination prior to antineoplastic chemotherapy; Metastatic canc er to the peritoneum; Abnormal urinal ysis; Mass of muscle of left upper limb; Neoplasm, malig nant of ovary <Bilateral> 07/29/2021 Clinical Support Infusion Services Almita aBtres MD 07/29/2021 Orders Only Gynecology Nick Bustillo, Malignant ne oplasm of PA unspecified ova ry (Primary Dx) 07/29/2021 Travel 07/28/2021 Orders Only Gynecology Almita Batres Malignant ne oplasm of MD Chris unspecified ova ry (Primary Dx) 07/27/2021 Ancillary Procedure Radiology Nick Bustillo, Malleonie nant neoplasm of unspecified ovary; PA Metastatic canc er to the peritoneum 07/27/2021 Travel 07/08/2021 Clinical Support Infusion Services Almita Batres MD 07/08/2021 Infusion Infusion Services Almita Batres Maligna nt neoplasm of unspecified ovary (Primary Dx); MD Chris Metastatic canc er to the peritoneum 07/08/2021 Office Visit Gynecology Almita Batres Malignant ne oplasm of unspecified ovary (Primary Dx); MD Chris Metastatic canc er to the peritoneum 07/08/2021 Travel 07/07/2021 Orders Only Gynecology Almita Batres Malignant ne oplasm of unspecified ovary (Primary Dx); MD Chris Metastatic canc er to the peritoneum 07/01/2021 Refill Gynecology Nick Bustillo, Malignant ne oplasm of PA unspecified ova ry 06/17/2021 Infusion Infusion Services Malignant neoplasm of unspecified ovary (Primary Dx); Metastatic canc er to the peritoneum 06/17/2021 Office Visit Gynecology Nick Bustillo, Malignant ne oplasm of unspecified ovary (Primary Dx); PA Metastatic canc er to the peritoneum; Dysuria 06/17/2021 Clinical Support Infusion Services 06/17/2021 Orders Only Gynecology Almita Batres Malignant ne oplasm of MD Chris unspecified ova ry (Primary Dx) 06/17/2021 Travel after 06/13/2021 Immunizations Name Administration Dates Next Due Pfizer SARS-CoV-2 Vaccination (Purple Cap) 04/18/2021 Surgical History Surgery Date Site/Laterality Comments COLON SURGERY 02/17/2018 - colostomy 03/19/2018 BACK SURGERY 08/20/2014 - 08/19/2015 HYSTERECTOMY 08/20/1979 - 08/19/1980 CATARACT EXTRACTION, BILATERAL NC INSJ TUNNELED CTR VAD 09/30/2020 Neck/Right Procedu re: PORT-A-CATH W/SUBQ PORT AGE 5 YR/> PLACEMENT ; Surgeon: Conner Hogan MD; Lo cation: [facility]; Service : SURG ONC - PORT Medical devices from this surgery are in t he Medical Devices section. NC CHG US GUIDE, VASCULAR 09/30/2020 Neck/Right Proced ure: US GUIDANCE ACCESS WITH EVAL OF POT ENTIAL ACCESS SITES, RE ALTIME US VISUALIZATION OF VASC NEEDLE ENTRY; Reynolds rgeon: Conner Hogan MD; [facility]; Service: SURG ON C - PORT Medical devices from this surgery are in t he Medical Devices section. NC CHG FLUOROGUIDE CNTRL 09/30/2020 Neck/Right Procedu re: FLUORO GUIDANCE VIDA FOR CENTRAL VENO US ACCESS ACCESS,PLACE,REPLACE,REMOV DEVIC E PLACEMENT, E REPLACEMENT, OR REMOVAL; Surgeon: Conner Hogan MD; Location: [facility] OR; Service: SURG ON C - PORT Medical devices from this surgery are in t Medical Devices section. Medical History Medical History Date Comments Hypertension no medication for ap proximately 1 year. Irregular heart beat 2010 no medicine needed Thrombosis 2017 blood clots in lung and is on blood thinner xarelto 20 m g Emphysema 2012 Anoro Ellipta Dependence on continuous [...] at Date Recorded Female 07/28/2020 4:40 PM [employer] Job Start Date Occupation Industry Not on file Not on file Not on file COVID-19 Exposure Response Date Recorded In the last 10 days, have you been in contact with No / Unsu re 06/02/2022 2:09 PM CDT someone who was confirmed or suspected to have Coronavirus/COVID-19? Obstetrics History Para Term AB IAB SAB Ectopic Multiple Living Live Births 2 2 2 Date Outcome GA Total Labor/2nd/3rd Weight Sex Delivery Anes PTL [place] A 1 A5 Name Clin Labor Para Para Last Filed Vital Signs Vital Sign Reading Time Taken Comments Blood Pressure 123/71 06/02/2022 3:00 PM CDT Pulse 76 06/02/2022 3:00 PM CDT Temperature 36.7 C (98.1 F) 06/02/2022 3:00 PM CDT Respiratory Rate 18 06/02/2022 3:00 PM CDT Oxygen Saturation 95% 04/20/2022 5:38 PM CDT Inhaled Oxygen Concentration - - Weight 50.9 kg (112 lb 3.4 oz) 06/02/2022 2:26 PM CDT Height 146 cm (4' 9.48") 01/27/2022 12:45 PM CDT Body Mass Index 23.88 01/27/2022 12:45 PM CDT Plan of Treatment Date Type Specialty Care Team Description 06/16/2022 Lab Lab Almita Batres MD [address] [place] [address] [phone] (Wo rk) 06/16/2022 Clinical Support Infusion Services Alfredito Batres MD [address] [place] [address] [phone] (Wo rk) 06/16/2022 Office Visit Gynecology Almita Batres MD [address] [place] [address] [phone] (Wo rk) 06/23/2022 Office Visit Pain Medicine Jacek Kimball MD [address] [place] [address] [phone] (Wo rk) Health Maintenance Due Date Last Done Comments COVID-19 Vaccination (2 - Pfizer risk series) 05/09/2021 Medical Devices Implanted Type Area Visitor Services Specialist Device Identifier Shelf Model / Expiration Serial / Date Lot Pwrport Clearvue Slim 6fr W/Smth Septum - Sna Port Right: BARD PERIPHERAL [id number] 10/17/2021 [id number] / Implanted: Qty: 1 on 09/30/2020 by Conner Hogan MD at [facility] Internal VASCULAR NA / Jugular [id number] Description: Catheter length-21 CM Procedures Procedure Name Priority Date/Time Associated Diagnosis Comme nts URINALYSIS WITH Routine 06/02/2022 2:49 Neoplasm, malignant Re sults for this MICROSCOPIC IF PM CDT of ovary <Bilate ral> procedure are in INDICATED Metastatic cancer to the res ults the peritoneum section. CALCIUM LEVEL TOTAL Routine 06/02/2022 2:43 Neoplasm, malignan t Results for this PM CDT of ovary <Bilate ral> procedure are in Metastatic cancer to the res ults the peritoneum section. .GLOMERULAR FILTRATION Routine 06/02/2022 2:43 Neoplasm, malig nant Results for this RATE PM CDT of ovary <Bilate ral> procedure are in Metastatic cancer to the res ults the peritoneum section. SERUM CREATININE Routine 06/02/2022 2:43 Neoplasm, malignant R esults for this PM CDT of ovary <Bilate ral> procedure are in Metastatic cancer to the res ults the peritoneum section. ELECTROLYTE PANEL Routine 06/02/2022 2:43 Neoplasm, malignant Results for this PM CDT of ovary <Bilate ral> procedure are in Metastatic cancer to the res ults the peritoneum section. BLOOD UREA NITROGEN Routine 06/02/2022 2:43 Neoplasm, malignan t Results for this PM CDT of ovary <Bilate ral> procedure are in Metastatic cancer to the res ults the peritoneum section. GLUCOSE LEVEL Routine 06/02/2022 2:43 Neoplasm, malignant Resu lts for this PM CDT of ovary <Bilate ral> procedure are in Metastatic cancer to the res ults the peritoneum section. MANUAL DIFFERENTIAL Routine 06/02/2022 2:43 Neoplasm, malignan t Results for this PM CDT of ovary <Bilate ral> procedure are in Metastatic cancer to the res ults the peritoneum section. Results CBC Routine 06/02/2022 2:43 Neoplasm, malignant Resul ts for this PM CDT of ovary <Bilate ral> procedure are in Metastatic cancer to the res ults the peritoneum section. ASPARTATE Routine 06/02/2022 2:43 Neoplasm, malignant Resul ts for this AMINOTRANSFERASE PM CDT of ovary <Bilat eral> procedure are in Metastatic cancer to the res ults the peritoneum section. ALANINE Routine 06/02/2022 2:43 Neoplasm, malignant Resul ts for this AMINOTRANSFERASE PM CDT of ovary <Bilat eral> procedure are in Metastatic cancer to the res ults the peritoneum section. BILIRUBIN TOTAL Routine 06/02/2022 2:43 Neoplasm, malignant Re sults for this PM CDT of ovary <Bilate ral> procedure are in Metastatic cancer to the res ults the peritoneum section. 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 CALCIUM LEVEL TOTAL Routine 05/12/2022 2:13 Metastatic cancer to Results for this PM CDT the peritoneum procedure are in Neoplasm, malignant the resu lts of ovary <Bilateral> section . .GLOMERULAR FILTRATION Routine 05/12/2022 2:13 Metastatic canc er to Results for this RATE PM CDT the peritoneum procedure are in Neoplasm, malignant the resu lts of ovary <Bilateral> section . SERUM CREATININE Routine 05/12/2022 2:13 Metastatic cancer to Results for this PM CDT the peritoneum procedure are in Neoplasm, malignant the resu lts of ovary <Bilateral> section . ELECTROLYTE PANEL Routine 05/12/2022 2:13 Metastatic cancer to Results for this PM CDT the peritoneum procedure are in Neoplasm, malignant the resu lts of ovary <Bilateral> section . BLOOD UREA NITROGEN Routine 05/12/2022 2:13 Metastatic cancer to Results for this PM CDT the peritoneum procedure are in Neoplasm, malignant the resu lts of ovary <Bilateral> section . GLUCOSE LEVEL Routine 05/12/2022 2:13 Metastatic cancer to Res ults for this PM CDT the peritoneum procedure are in Neoplasm, malignant the resu lts of ovary <Bilateral> section . MANUAL DIFFERENTIAL Routine 05/12/2022 2:13 Metastatic cancer to Results for this PM CDT the peritoneum procedure are in Neoplasm, malignant the resu lts of ovary <Bilateral> section . Results CBC Routine 05/12/2022 2:13 Metastatic cancer to Resu lts for this PM CDT the peritoneum procedure are in Neoplasm, malignant the resu lts of ovary <Bilateral> section . ASPARTATE Routine 05/12/2022 2:13 Metastatic cancer to Resu lts for this AMINOTRANSFERASE PM CDT the peritoneum procedure are in Neoplasm, malignant the resu lts of ovary <Bilateral> section . ALANINE Routine 05/12/2022 2:13 Metastatic cancer to Resu lts for this AMINOTRANSFERASE PM CDT the peritoneum procedure are in Neoplasm, malignant the resu lts of ovary <Bilateral> section . BILIRUBIN TOTAL Routine 05/12/2022 2:13 Metastatic cancer to R esults for this PM CDT the peritoneum procedure are in Neoplasm, malignant the resu lts of ovary <Bilateral> section . BASIC METABOLIC PANEL, Routine 05/12/2022 2:13 Metastatic canc er to CALCIUM TOTAL PM CDT the peritoneum 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> COMPLETE BLOOD COUNT W/ Routine 05/12/2022 2:13 Metastatic can cer to DIFFERENTIAL PM CDT the peritoneum 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> CANCER ANTIGEN 125 Routine 05/12/2022 2:13 Metastatic cancer t o Results for this PM CDT the peritoneum procedure are in Neoplasm, malignant the resu lts of ovary <Bilateral> section . URINALYSIS MICROSCOPIC Routine 04/21/2022 12:44 R esults for this PM CDT procedure are i n the results section. URINALYSIS WITH Routine 04/21/2022 12:44 Dysuria Results for this MICROSCOPIC IF PM CDT procedure are in INDICATED the results section. URINE CULTURE Routine 04/21/2022 12:44 Dysuria Results fo r this PM CDT procedure are i n the results section. CT CHEST ABDOMEN PELVIS Routine 04/20/2022 8:00 Metastatic can cer to Results for this W WO CONTRAST PM CDT the peritoneum procedure are in Encounter for the results examination prior to section . 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 FRACTIONATED BILIRUBIN Routine 04/20/2022 6:06 Metastatic canc er to Results for this PM CDT the peritoneum procedure are in Encounter for the results examination prior to section . 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 .GLOMERULAR FILTRATION Routine 04/20/2022 6:06 Metastatic canc er to Results for this RATE PM CDT the peritoneum procedure are in Neoplasm, malignant the resu lts of ovary <Bilateral> section . SERUM CREATININE Routine 04/20/2022 6:06 Metastatic cancer to Results for this PM CDT the peritoneum procedure are in Neoplasm, malignant the resu lts of ovary <Bilateral> section . ELECTROLYTE PANEL Routine 04/20/2022 6:06 Metastatic cancer to Results for this PM CDT the peritoneum procedure are in Neoplasm, malignant the resu lts of ovary <Bilateral> section . BLOOD UREA NITROGEN Routine 04/20/2022 6:06 Metastatic cancer to Results for this PM CDT the peritoneum procedure are in Neoplasm, malignant the resu lts of ovary <Bilateral> section . GLUCOSE LEVEL Routine 04/20/2022 6:06 Metastatic cancer to Res ults for this PM CDT the peritoneum procedure are in Neoplasm, malignant the resu lts of ovary <Bilateral> section . MANUAL DIFFERENTIAL Routine 04/20/2022 6:06 Metastatic cancer to Results for this PM CDT the peritoneum procedure are in Neoplasm, malignant the resu lts of ovary <Bilateral> section . Results CBC Routine 04/20/2022 6:06 Metastatic cancer to Resu lts for this PM CDT the peritoneum procedure are in Neoplasm, malignant the resu lts of ovary <Bilateral> section . COMPREHENSIVE METABOLIC Routine 04/20/2022 6:06 Metastatic can cer to PANEL PM CDT the peritoneum Encounter for examination prior to antineoplastic chemotherapy 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> MAGNESIUM LEVEL Routine 04/20/2022 6:06 Metastatic cancer to R esults for this PM CDT the peritoneum procedure are in Neoplasm, malignant the resu lts of ovary <Bilateral> section . ASPARTATE Routine 04/20/2022 6:06 Metastatic cancer to Resu lts for this AMINOTRANSFERASE PM CDT the peritoneum procedure are in Neoplasm, malignant the resu lts of ovary <Bilateral> section . ALANINE Routine 04/20/2022 6:06 Metastatic cancer to Resu lts for this AMINOTRANSFERASE PM CDT the peritoneum procedure are in Neoplasm, malignant the resu lts of ovary <Bilateral> section . BASIC METABOLIC PANEL, Routine 04/20/2022 6:06 Metastatic canc er to CALCIUM TOTAL PM CDT the peritoneum 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> COMPLETE BLOOD COUNT W/ Routine 04/20/2022 6:06 Metastatic can cer to DIFFERENTIAL PM CDT the peritoneum 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> CANCER ANTIGEN 125 Routine 04/20/2022 6:06 Metastatic cancer t o Results for this PM CDT the peritoneum procedure are in Neoplasm, malignant the resu lts of ovary <Bilateral> section . URINALYSIS MICROSCOPIC Routine 03/24/2022 4:10 Re sults for this PM CDT procedure are i n the results section. URINALYSIS WITH Routine 03/24/2022 4:10 Metastatic cancer to R esults for this MICROSCOPIC IF PM CDT the peritoneum procedure a re in INDICATED the results section. CALCIUM LEVEL TOTAL Routine 03/24/2022 2:12 Metastatic cancer to Results for this PM CDT the peritoneum procedure are in Neoplasm, malignant the resu lts of ovary <Bilateral> section . .GLOMERULAR FILTRATION Routine 03/24/2022 2:12 Metastatic canc er to Results for this RATE PM CDT the peritoneum procedure are in Neoplasm, malignant the resu lts of ovary <Bilateral> section . SERUM CREATININE Routine 03/24/2022 2:12 Metastatic cancer to Results for this PM CDT the peritoneum procedure are in Neoplasm, malignant the resu lts of ovary <Bilateral> section . ELECTROLYTE PANEL Routine 03/24/2022 2:12 Metastatic cancer to Results for this PM CDT the peritoneum procedure are in Neoplasm, malignant the resu lts of ovary <Bilateral> section . BLOOD UREA NITROGEN Routine 03/24/2022 2:12 Metastatic cancer to Results for this PM CDT the peritoneum procedure are in Neoplasm, malignant the resu lts of ovary <Bilateral> section . GLUCOSE LEVEL Routine 03/24/2022 2:12 Metastatic cancer to Res ults for this PM CDT the peritoneum procedure are in Neoplasm, malignant the resu lts of ovary <Bilateral> section . MANUAL DIFFERENTIAL Routine 03/24/2022 2:12 Metastatic cancer to Results for this PM CDT the peritoneum procedure are in Neoplasm, malignant the resu lts of ovary <Bilateral> section . Results CBC Routine 03/24/2022 2:12 Metastatic cancer to Resu lts for this PM CDT the peritoneum procedure are in Neoplasm, malignant the resu lts of ovary <Bilateral> section . MAGNESIUM LEVEL Routine 03/24/2022 2:12 Metastatic cancer to R esults for this PM CDT the peritoneum procedure are in Neoplasm, malignant the resu lts of ovary <Bilateral> section . ASPARTATE Routine 03/24/2022 2:12 Metastatic cancer to Resu lts for this AMINOTRANSFERASE PM CDT the peritoneum procedure are in Neoplasm, malignant the resu lts of ovary <Bilateral> section . ALANINE Routine 03/24/2022 2:12 Metastatic cancer to Resu lts for this AMINOTRANSFERASE PM CDT the peritoneum procedure are in Neoplasm, malignant the resu lts of ovary <Bilateral> section . BILIRUBIN TOTAL Routine 03/24/2022 2:12 Metastatic cancer to R esults for this PM CDT the peritoneum procedure are in Neoplasm, malignant the resu lts of ovary <Bilateral> section . BASIC METABOLIC PANEL, Routine 03/24/2022 2:12 Metastatic canc er to CALCIUM TOTAL PM CDT the peritoneum 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> COMPLETE BLOOD COUNT W/ Routine 03/24/2022 2:12 Metastatic can cer to DIFFERENTIAL PM CDT the peritoneum 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> CANCER ANTIGEN 125 Routine 03/24/2022 2:12 Metastatic cancer t o Results for this PM CDT the peritoneum procedure are in Neoplasm, malignant the resu lts of ovary <Bilateral> section . CALCIUM LEVEL TOTAL Routine 02/24/2022 11:21 Metastatic cancer to Results for this AM CDT the peritoneum procedure are in Neoplasm, malignant the resu lts of ovary <Bilateral> section . .GLOMERULAR FILTRATION Routine 02/24/2022 11:21 Metastatic can cer to Results for this RATE AM CDT the peritoneum procedure are in Neoplasm, malignant the resu lts of ovary <Bilateral> section . SERUM CREATININE Routine 02/24/2022 11:21 Metastatic cancer to Results for this AM CDT the peritoneum procedure are in Neoplasm, malignant the resu lts of ovary <Bilateral> section . ELECTROLYTE PANEL Routine 02/24/2022 11:21 Metastatic cancer t o Results for this AM CDT the peritoneum procedure are in Neoplasm, malignant the resu lts of ovary <Bilateral> section . BLOOD UREA NITROGEN Routine 02/24/2022 11:21 Metastatic cancer to Results for this AM CDT the peritoneum procedure are in Neoplasm, malignant the resu lts of ovary <Bilateral> section . GLUCOSE LEVEL Routine 02/24/2022 11:21 Metastatic cancer to Re sults for this AM CDT the peritoneum procedure are in Neoplasm, malignant the resu lts of ovary <Bilateral> section . MANUAL DIFFERENTIAL Routine 02/24/2022 11:21 Metastatic cancer to Results for this AM CDT the peritoneum procedure are in Neoplasm, malignant the resu lts of ovary <Bilateral> section . Results CBC Routine 02/24/2022 11:21 Metastatic cancer to Res ults for this AM CDT the peritoneum procedure are in Neoplasm, malignant the resu lts of ovary <Bilateral> section . MAGNESIUM LEVEL Routine 02/24/2022 11:21 Metastatic cancer to Results for this AM CDT the peritoneum procedure are in Neoplasm, malignant the resu lts of ovary <Bilateral> section . ASPARTATE Routine 02/24/2022 11:21 Metastatic cancer to Res ults for this AMINOTRANSFERASE AM CDT the peritoneum procedure are in Neoplasm, malignant the resu lts of ovary <Bilateral> section . ALANINE Routine 02/24/2022 11:21 Metastatic cancer to Res ults for this AMINOTRANSFERASE AM CDT the peritoneum procedure are in Neoplasm, malignant the resu lts of ovary <Bilateral> section . BILIRUBIN TOTAL Routine 02/24/2022 11:21 Metastatic cancer to Results for this AM CDT the peritoneum procedure are in Neoplasm, malignant the resu lts of ovary <Bilateral> section . BASIC METABOLIC PANEL, Routine 02/24/2022 11:21 Metastatic can cer to CALCIUM TOTAL AM CDT the peritoneum 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> COMPLETE BLOOD COUNT W/ Routine 02/24/2022 11:21 Metastatic ca ncer to DIFFERENTIAL AM CDT the peritoneum 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> CANCER ANTIGEN 125 Routine 02/24/2022 11:21 Metastatic cancer to Results for this AM CDT the peritoneum procedure are in Neoplasm, malignant the resu lts of ovary <Bilateral> section . TMP INTERPRETATION Routine 02/17/2022 3:32 Result s for this ANTIBODY SCREEN PM CDT procedure ar e in NEGATIVE the results section. CLOT EXPIRATION DATE Routine 02/17/2022 3:32 Resu lts for this PM CDT procedure are i n the results section. ANTIBODY SCREEN Routine 02/17/2022 3:32 Neoplasm, malignant Re sults for this PM CDT of ovary <Bilateral> procedu re are in the results section. ABORH Routine 02/17/2022 3:32 Neoplasm, malignant Resul ts for this PM CDT of ovary <Bilateral> procedu re are in the results section. FRACTIONATED BILIRUBIN Routine 02/17/2022 3:32 Neoplasm, malig nant Results for this PM CDT of ovary <Bilateral> procedu re are in the results section. TOTAL PROTEIN Routine 02/17/2022 3:32 Neoplasm, malignant Resu lts for this PM CDT of ovary <Bilateral> procedu re are in the results section. ASPARTATE Routine 02/17/2022 3:32 Neoplasm, malignant Resul ts for this AMINOTRANSFERASE PM CDT of ovary <Bilateral> pro cedure are in the results section. ALANINE Routine 02/17/2022 3:32 Neoplasm, malignant Resul ts for this AMINOTRANSFERASE PM CDT of ovary <Bilateral> pro cedure are in the results section. ALKALINE PHOSPHATASE Routine 02/17/2022 3:32 Neoplasm, maligna nt Results for this PM CDT of ovary <Bilateral> procedu re are in the results section. ALBUMIN LEVEL Routine 02/17/2022 3:32 Neoplasm, malignant Resu lts for this PM CDT of ovary <Bilateral> procedu re are in the results section. CALCIUM LEVEL TOTAL Routine 02/17/2022 3:32 Neoplasm, malignan t Results for this PM CDT of ovary <Bilateral> procedu re are in the results section. .GLOMERULAR FILTRATION Routine 02/17/2022 3:32 Neoplasm, malig nant Results for this RATE PM CDT of ovary <Bilateral> procedu re are in the results section. SERUM CREATININE Routine 02/17/2022 3:32 Neoplasm, malignant R esults for this PM CDT of ovary <Bilateral> procedu re are in the results section. ELECTROLYTE PANEL Routine 02/17/2022 3:32 Neoplasm, malignant Results for this PM CDT of ovary <Bilateral> procedu re are in the results section. BLOOD UREA NITROGEN Routine 02/17/2022 3:32 Neoplasm, malignan t Results for this PM CDT of ovary <Bilateral> procedu re are in the results section. GLUCOSE LEVEL Routine 02/17/2022 3:32 Neoplasm, malignant Resu lts for this PM CDT of ovary <Bilateral> procedu re are in the results section. MANUAL DIFFERENTIAL Routine 02/17/2022 3:32 Neoplasm, malignan t Results for this PM CDT of ovary <Bilateral> procedu re are in the results section. Results CBC Routine 02/17/2022 3:32 Neoplasm, malignant Resul ts for this PM CDT of ovary <Bilateral> procedu re are in the results section. CONFIRM ABORH TYPE Routine 02/17/2022 3:32 Result s for this PM CDT procedure are i n the results section. TYPE AND SCREEN Routine 02/17/2022 3:32 Neoplasm, malignant PM CDT of ovary <Bilateral> COMPREHENSIVE METABOLIC Routine 02/17/2022 3:32 Neoplasm, rona gnant PANEL PM CDT of ovary <Bilateral> MAGNESIUM LEVEL Routine 02/17/2022 3:32 Neoplasm, malignant Re sults for this PM CDT of ovary <Bilateral> procedu re are in the results section. COMPLETE BLOOD COUNT W/ Routine 02/17/2022 3:32 Neoplasm, rona gnant DIFFERENTIAL PM CDT of ovary <Bilateral> PAIN MANAGEMENT Routine 02/17/2022 2:36 Chronic back pain Resu lts for this FLUOROSCOPY PM CDT procedure are i n the results section. CALCIUM LEVEL TOTAL Routine 01/27/2022 9:33 Metastatic cancer to Results for this AM CDT the peritoneum procedure are in Neoplasm, malignant the resu lts of ovary <Bilateral> section . .GLOMERULAR FILTRATION Routine 01/27/2022 9:33 Metastatic canc er to Results for this RATE AM CDT the peritoneum procedure are in Neoplasm, malignant the resu lts of ovary <Bilateral> section . SERUM CREATININE Routine 01/27/2022 9:33 Metastatic cancer to Results for this AM CDT the peritoneum procedure are in Neoplasm, malignant the resu lts of ovary <Bilateral> section . ELECTROLYTE PANEL Routine 01/27/2022 9:33 Metastatic cancer to Results for this AM CDT the peritoneum procedure are in Neoplasm, malignant the resu lts of ovary <Bilateral> section . BLOOD UREA NITROGEN Routine 01/27/2022 9:33 Metastatic cancer to Results for this AM CDT the peritoneum procedure are in Neoplasm, malignant the resu lts of ovary <Bilateral> section . GLUCOSE LEVEL Routine 01/27/2022 9:33 Metastatic cancer to Res ults for this AM CDT the peritoneum procedure are in Neoplasm, malignant the resu lts of ovary <Bilateral> section . MANUAL DIFFERENTIAL Routine 01/27/2022 9:33 Metastatic cancer to Results for this AM CDT the peritoneum procedure are in Neoplasm, malignant the resu lts of ovary <Bilateral> section . Results CBC Routine 01/27/2022 9:33 Metastatic cancer to Resu lts for this AM CDT the peritoneum procedure are in Neoplasm, malignant the resu lts of ovary <Bilateral> section . MAGNESIUM LEVEL Routine 01/27/2022 9:33 Metastatic cancer to R esults for this AM CDT the peritoneum procedure are in Neoplasm, malignant the resu lts of ovary <Bilateral> section . ASPARTATE Routine 01/27/2022 9:33 Metastatic cancer to Resu lts for this AMINOTRANSFERASE AM CDT the peritoneum procedure are in Neoplasm, malignant the resu lts of ovary <Bilateral> section . ALANINE Routine 01/27/2022 9:33 Metastatic cancer to Resu lts for this AMINOTRANSFERASE AM CDT the peritoneum procedure are in Neoplasm, malignant the resu lts of ovary <Bilateral> section . BILIRUBIN TOTAL Routine 01/27/2022 9:33 Metastatic cancer to R esults for this AM CDT the peritoneum procedure are in Neoplasm, malignant the resu lts of ovary <Bilateral> section . BASIC METABOLIC PANEL, Routine 01/27/2022 9:33 Metastatic canc er to CALCIUM TOTAL AM CDT the peritoneum 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> COMPLETE BLOOD COUNT W/ Routine 01/27/2022 9:33 Metastatic can cer to DIFFERENTIAL AM CDT the peritoneum 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> CANCER ANTIGEN 125 Routine 01/27/2022 9:33 Metastatic cancer t o Results for this AM CDT the peritoneum procedure are in Neoplasm, malignant the resu lts of ovary <Bilateral> section . CT CHEST ABDOMEN PELVIS Routine 01/17/2022 8:06 Malignant neop lasm of Results for this W CONTRAST PM CDT unspecified ovar y procedure are in Metastatic cancer to the res ults the peritoneum section. 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 URINALYSIS MICROSCOPIC Routine 11/04/2021 8:45 Re sults for this AM CDT procedure are i n the results section. 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 .GLOMERULAR FILTRATION Routine 11/04/2021 8:45 Metastatic canc er to Results for this RATE AM CDT the peritoneum procedure are in Neoplasm, malignant the resu lts of ovary <Bilateral> section . SERUM CREATININE Routine 11/04/2021 8:45 Metastatic cancer to Results for this AM CDT the peritoneum procedure are in Neoplasm, malignant the resu lts of ovary <Bilateral> section . ELECTROLYTE PANEL Routine 11/04/2021 8:45 Metastatic cancer to Results for this AM CDT the peritoneum procedure are in Neoplasm, malignant the resu lts of ovary <Bilateral> section . BLOOD UREA NITROGEN Routine 11/04/2021 8:45 Metastatic cancer to Results for this AM CDT the peritoneum procedure are in Neoplasm, malignant the resu lts of ovary <Bilateral> section . GLUCOSE LEVEL Routine 11/04/2021 8:45 Metastatic cancer to Res ults for this AM CDT the peritoneum procedure are in Neoplasm, malignant the resu lts of ovary <Bilateral> section . MANUAL DIFFERENTIAL Routine 11/04/2021 8:45 Metastatic cancer to Results for this AM CDT the peritoneum procedure are in Neoplasm, malignant the resu lts of ovary <Bilateral> section . Results CBC Routine 11/04/2021 8:45 Metastatic cancer to Resu lts for this AM CDT the peritoneum procedure are in Neoplasm, malignant the resu lts of ovary <Bilateral> section . URINALYSIS WITH Routine 11/04/2021 8:45 Metastatic cancer to R esults for this MICROSCOPIC IF AM CDT the peritoneum procedure are in INDICATED Neoplasm, malignant the resu lts of ovary <Bilateral> section . MAGNESIUM LEVEL Routine 11/04/2021 8:45 Metastatic cancer to R esults for this AM CDT the peritoneum procedure are in Neoplasm, malignant the resu lts of ovary <Bilateral> section . ASPARTATE Routine 11/04/2021 8:45 Metastatic cancer to Resu lts for this AMINOTRANSFERASE AM CDT the peritoneum procedure are in Neoplasm, malignant the resu lts of ovary <Bilateral> section . ALANINE Routine 11/04/2021 8:45 Metastatic cancer to Resu lts for this AMINOTRANSFERASE AM CDT the peritoneum procedure are in Neoplasm, malignant the resu lts of ovary <Bilateral> section . BILIRUBIN TOTAL Routine 11/04/2021 8:45 Metastatic cancer to R esults for this AM CDT the peritoneum procedure are in Neoplasm, malignant the resu lts of ovary <Bilateral> section . BASIC METABOLIC PANEL, Routine 11/04/2021 8:45 Metastatic canc er to CALCIUM TOTAL AM CDT the peritoneum 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> COMPLETE BLOOD COUNT W/ Routine 11/04/2021 8:45 Metastatic can cer to DIFFERENTIAL AM CDT the peritoneum 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> CANCER ANTIGEN 125 Routine 11/04/2021 8:45 Metastatic cancer t o Results for this AM CDT the peritoneum procedure are in Neoplasm, malignant the resu lts of ovary <Bilateral> section . CALCIUM LEVEL TOTAL Routine 10/14/2021 1:43 Metastatic cancer to Results for this PM GETTER WELDER the peritoneum procedure are in Neoplasm, malignant the resu lts of ovary <Bilateral> section . .GLOMERULAR FILTRATION Routine 10/14/2021 1:43 Metastatic canc er to Results for this RATE PM GETTER WELDER the peritoneum procedure are in Neoplasm, malignant the resu lts of ovary <Bilateral> section . SERUM CREATININE Routine 10/14/2021 1:43 Metastatic cancer to Results for this PM GETTER WELDER the peritoneum procedure are in Neoplasm, malignant the resu lts of ovary <Bilateral> section . ELECTROLYTE PANEL Routine 10/14/2021 1:43 Metastatic cancer to Results for this PM GETTER WELDER the peritoneum procedure are in Neoplasm, malignant the resu lts of ovary <Bilateral> section . BLOOD UREA NITROGEN Routine 10/14/2021 1:43 Metastatic cancer to Results for this PM GETTER WELDER the peritoneum procedure are in Neoplasm, malignant the resu lts of ovary <Bilateral> section . GLUCOSE LEVEL Routine 10/14/2021 1:43 Metastatic cancer to Res ults for this PM GETTER WELDER the peritoneum procedure are in Neoplasm, malignant the resu lts of ovary <Bilateral> section . MANUAL DIFFERENTIAL Routine 10/14/2021 1:43 Metastatic cancer to Results for this PM GETTER WELDER the peritoneum procedure are in Neoplasm, malignant the resu lts of ovary <Bilateral> section . Results CBC Routine 10/14/2021 1:43 Metastatic cancer to Resu lts for this PM GETTER WELDER the peritoneum procedure are in Neoplasm, malignant the resu lts of ovary <Bilateral> section . MAGNESIUM LEVEL Routine 10/14/2021 1:43 Metastatic cancer to R esults for this PM GETTER WELDER the peritoneum procedure are in Neoplasm, malignant the resu lts of ovary <Bilateral> section . ASPARTATE Routine 10/14/2021 1:43 Metastatic cancer to Resu lts for this AMINOTRANSFERASE PM GETTER WELDER the peritoneum procedure are in Neoplasm, malignant the resu lts of ovary <Bilateral> section . ALANINE Routine 10/14/2021 1:43 Metastatic cancer to Resu lts for this AMINOTRANSFERASE PM GETTER WELDER the peritoneum procedure are in Neoplasm, malignant the resu lts of ovary <Bilateral> section . BILIRUBIN TOTAL Routine 10/14/2021 1:43 Metastatic cancer to R esults for this PM GETTER WELDER the peritoneum procedure are in Neoplasm, malignant the resu lts of ovary <Bilateral> section . BASIC METABOLIC PANEL, Routine 10/14/2021 1:43 Metastatic canc er to CALCIUM TOTAL PM GETTER WELDER the peritoneum 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> COMPLETE BLOOD COUNT W/ Routine 10/14/2021 1:43 Metastatic can cer to DIFFERENTIAL PM GETTER WELDER the peritoneum 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> CANCER ANTIGEN 125 Routine 10/14/2021 1:43 Metastatic cancer t o Results for this PM GETTER WELDER the peritoneum procedure are in Neoplasm, malignant the resu lts of ovary <Bilateral> section . CT CHEST ABDOMEN PELVIS Routine 10/04/2021 1:16 Malignant neop lasm of Results for this W CONTRAST PM GETTER WELDER unspecified ovar y procedure are in Metastatic cancer to the res ults the peritoneum section. Encounter for examination prior to antineoplastic chemotherapy 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> CALCIUM LEVEL TOTAL Routine 10/04/2021 10:01 Metastatic cancer to Results for this AM GETTER WELDER the peritoneum procedure are in Neoplasm, malignant the resu lts of ovary <Bilateral> section . .GLOMERULAR FILTRATION Routine 10/04/2021 10:01 Metastatic can cer to Results for this RATE AM GETTER WELDER the peritoneum procedure are in Neoplasm, malignant the resu lts of ovary <Bilateral> section . SERUM CREATININE Routine 10/04/2021 10:01 Metastatic cancer to Results for this AM [employer] the peritoneum procedure are in Neoplasm, malignant the resu lts of ovary <Bilateral> section . ELECTROLYTE PANEL Routine 10/04/2021 10:01 Metastatic cancer t o Results for this AM [employer] the peritoneum procedure are in Neoplasm, malignant the resu lts of ovary <Bilateral> section . BLOOD UREA NITROGEN Routine 10/04/2021 10:01 Metastatic cancer to Results for this AM [employer] the peritoneum procedure are in Neoplasm, malignant the resu lts of ovary <Bilateral> section . GLUCOSE LEVEL Routine 10/04/2021 10:01 Metastatic cancer to Re sults for this AM [employer] the peritoneum procedure are in Neoplasm, malignant the resu lts of ovary <Bilateral> section . MANUAL DIFFERENTIAL Routine 10/04/2021 10:01 Metastatic cancer to Results for this AM [employer] the peritoneum procedure are in Neoplasm, malignant the resu lts of ovary <Bilateral> section . Results CBC Routine 10/04/2021 10:01 Metastatic cancer to Res ults for this AM [employer] the peritoneum procedure are in Neoplasm, malignant the resu lts of ovary <Bilateral> section . MAGNESIUM LEVEL Routine 10/04/2021 10:01 Metastatic cancer to Results for this AM [employer] the peritoneum procedure are in Neoplasm, malignant the resu lts of ovary <Bilateral> section . ASPARTATE Routine 10/04/2021 10:01 Metastatic cancer to Res ults for this AMINOTRANSFERASE AM [employer] the peritoneum procedure are in Neoplasm, malignant the resu lts of ovary <Bilateral> section . ALANINE Routine 10/04/2021 10:01 Metastatic cancer to Res ults for this AMINOTRANSFERASE AM [employer] the peritoneum procedure are in Neoplasm, malignant the resu lts of ovary <Bilateral> section . BILIRUBIN TOTAL Routine 10/04/2021 10:01 Metastatic cancer to Results for this AM [employer] the peritoneum procedure are in Neoplasm, malignant the resu lts of ovary <Bilateral> section . BASIC METABOLIC PANEL, Routine 10/04/2021 10:01 Metastatic can cer to CALCIUM TOTAL AM [employer] the peritoneum 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> COMPLETE BLOOD COUNT W/ Routine 10/04/2021 10:01 Metastatic ca ncer to DIFFERENTIAL AM [employer] the peritoneum 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> CANCER ANTIGEN 125 Routine 10/04/2021 10:01 Metastatic cancer to Results for this AM [employer] the peritoneum procedure are in Neoplasm, malignant the resu lts of ovary <Bilateral> section . URINALYSIS MICROSCOPIC Routine 09/14/2021 1:53 Re sults for this PM [employer] procedure are i n the results section. URINALYSIS WITH Routine 09/14/2021 1:53 Metastatic cancer to R esults for this MICROSCOPIC IF PM [employer] the peritoneum procedure are in INDICATED Neoplasm, malignant the resu lts of ovary <Bilateral> section . CALCIUM LEVEL TOTAL Routine 09/14/2021 1:50 Metastatic cancer to Results for this PM [employer] the peritoneum procedure are in Neoplasm, malignant the resu lts of ovary <Bilateral> section . .GLOMERULAR FILTRATION Routine 09/14/2021 1:50 Metastatic canc er to Results for this RATE PM [employer] the peritoneum procedure are in Neoplasm, malignant the resu lts of ovary <Bilateral> section . SERUM CREATININE Routine 09/14/2021 1:50 Metastatic cancer to Results for this PM [employer] the peritoneum procedure are in Neoplasm, malignant the resu lts of ovary <Bilateral> section . ELECTROLYTE PANEL Routine 09/14/2021 1:50 Metastatic cancer to Results for this PM [employer] the peritoneum procedure are in Neoplasm, malignant the resu lts of ovary <Bilateral> section . BLOOD UREA NITROGEN Routine 09/14/2021 1:50 Metastatic cancer to Results for this PM [employer] the peritoneum procedure are in Neoplasm, malignant the resu lts of ovary <Bilateral> section . GLUCOSE LEVEL Routine 09/14/2021 1:50 Metastatic cancer to Res ults for this PM [employer] the peritoneum procedure are in Neoplasm, malignant the resu lts of ovary <Bilateral> section . MANUAL DIFFERENTIAL Routine 09/14/2021 1:50 Metastatic cancer to Results for this PM [employer] the peritoneum procedure are in Neoplasm, malignant the resu lts of ovary <Bilateral> section . Results CBC Routine 09/14/2021 1:50 Metastatic cancer to Resu lts for this PM [employer] the peritoneum procedure are in Neoplasm, malignant the resu lts of ovary <Bilateral> section . MAGNESIUM LEVEL Routine 09/14/2021 1:50 Metastatic cancer to R esults for this PM [employer] the peritoneum procedure are in Neoplasm, malignant the resu lts of ovary <Bilateral> section . ASPARTATE Routine 09/14/2021 1:50 Metastatic cancer to Resu lts for this AMINOTRANSFERASE PM [employer] the peritoneum procedure are in Neoplasm, malignant the resu lts of ovary <Bilateral> section . ALANINE Routine 09/14/2021 1:50 Metastatic cancer to Resu lts for this AMINOTRANSFERASE PM [employer] the peritoneum procedure are in Neoplasm, malignant the resu lts of ovary <Bilateral> section . BILIRUBIN TOTAL Routine 09/14/2021 1:50 Metastatic cancer to R esults for this PM [employer] the peritoneum procedure are in Neoplasm, malignant the resu lts of ovary <Bilateral> section . BASIC METABOLIC PANEL, Routine 09/14/2021 1:50 Metastatic canc er to CALCIUM TOTAL PM [employer] the peritoneum 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> COMPLETE BLOOD COUNT W/ Routine 09/14/2021 1:50 Metastatic can cer to DIFFERENTIAL PM [employer] the peritoneum 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> CANCER ANTIGEN 125 Routine 09/14/2021 1:50 Metastatic cancer t o Results for this PM [employer] the peritoneum procedure are in Neoplasm, malignant the resu lts of ovary <Bilateral> section . URINE CULTURE Routine 09/14/2021 1:53 Dysuria Results for this AM [employer] procedure are i n the results section. CALCIUM LEVEL TOTAL Routine 08/24/2021 9:43 Metastatic cancer to Results for this AM [employer] the peritoneum procedure are in Neoplasm, malignant the resu lts of ovary <Bilateral> section . .GLOMERULAR FILTRATION Routine 08/24/2021 9:43 Metastatic canc er to Results for this RATE AM [employer] the peritoneum procedure are in Neoplasm, malignant the resu lts of ovary <Bilateral> section . SERUM CREATININE Routine 08/24/2021 9:43 Metastatic cancer to Results for this AM [employer] the peritoneum procedure are in Neoplasm, malignant the resu lts of ovary <Bilateral> section . ELECTROLYTE PANEL Routine 08/24/2021 9:43 Metastatic cancer to Results for this AM [employer] the peritoneum procedure are in Neoplasm, malignant the resu lts of ovary <Bilateral> section . BLOOD UREA NITROGEN Routine 08/24/2021 9:43 Metastatic cancer to Results for this AM [employer] the peritoneum procedure are in Neoplasm, malignant the resu lts of ovary <Bilateral> section . GLUCOSE LEVEL Routine 08/24/2021 9:43 Metastatic cancer to Res ults for this AM [employer] the peritoneum procedure are in Neoplasm, malignant the resu lts of ovary <Bilateral> section . MANUAL DIFFERENTIAL Routine 08/24/2021 9:43 Metastatic cancer to Results for this AM [employer] the peritoneum procedure are in Neoplasm, malignant the resu lts of ovary <Bilateral> section . Results CBC Routine 08/24/2021 9:43 Metastatic cancer to Resu lts for this AM [employer] the peritoneum procedure are in Neoplasm, malignant the resu lts of ovary <Bilateral> section . MAGNESIUM LEVEL Routine 08/24/2021 9:43 Metastatic cancer to R esults for this AM [employer] the peritoneum procedure are in Neoplasm, malignant the resu lts of ovary <Bilateral> section . ASPARTATE Routine 08/24/2021 9:43 Metastatic cancer to Resu lts for this AMINOTRANSFERASE AM [employer] the peritoneum procedure are in Neoplasm, malignant the resu lts of ovary <Bilateral> section . ALANINE Routine 08/24/2021 9:43 Metastatic cancer to Resu lts for this AMINOTRANSFERASE AM [employer] the peritoneum procedure are in Neoplasm, malignant the resu lts of ovary <Bilateral> section . BILIRUBIN TOTAL Routine 08/24/2021 9:43 Metastatic cancer to R esults for this AM [employer] the peritoneum procedure are in Neoplasm, malignant the resu lts of ovary <Bilateral> section . BASIC METABOLIC PANEL, Routine 08/24/2021 9:43 Metastatic canc er to CALCIUM TOTAL AM [employer] the peritoneum 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> COMPLETE BLOOD COUNT W/ Routine 08/24/2021 9:43 Metastatic can cer to DIFFERENTIAL AM [employer] the peritoneum 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> CANCER ANTIGEN 125 Routine 08/24/2021 9:43 Metastatic cancer t o Results for this AM [employer] the peritoneum procedure are in Neoplasm, malignant the resu lts of ovary <Bilateral> section . URINALYSIS MICROSCOPIC Routine 08/24/2021 9:00 Re sults for this AM [employer] procedure are i n the results section. URINALYSIS WITH Routine 08/24/2021 9:00 Metastatic cancer to R esults for this MICROSCOPIC IF AM [employer] the peritoneum procedure are in INDICATED Neoplasm, malignant the resu lts of ovary <Bilateral> section . US UPPER EXTREMITY Routine 08/15/2021 1:55 Malignant neoplasm of Results for this LIMITED LEFT PM [employer] unspecified ovar y procedure are in Mass of muscle of the result s left upper limb section. PAIN MANAGEMENT Routine 08/03/2021 2:08 Results f or this FLUOROSCOPY PM [employer] procedure are i n the results section. URINALYSIS MICROSCOPIC Routine 07/29/2021 2:28 Re sults for this PM [employer] procedure are i n the results section. URINALYSIS WITH Routine 07/29/2021 2:28 Abnormal urinalysis Re sults for this MICROSCOPIC IF PM [employer] procedure are in INDICATED the results section. URINE CULTURE Routine 07/29/2021 2:28 Abnormal urinalysis Resu lts for this PM [employer] procedure are i n the results section. URINALYSIS MICROSCOPIC Routine 07/29/2021 9:58 Re sults for this AM [employer] procedure are i n the results section. CALCIUM LEVEL TOTAL Routine 07/29/2021 9:58 Malignant neoplasm of Results for this AM [employer] unspecified ovar y procedure are in Metastatic cancer to the res ults the peritoneum section. .GLOMERULAR FILTRATION Routine 07/29/2021 9:58 Malignant neopl asm of Results for this RATE AM [employer] unspecified ovar y procedure are in Metastatic cancer to the res ults the peritoneum section. SERUM CREATININE Routine 07/29/2021 9:58 Malignant neoplasm of Results for this AM [employer] unspecified ovar y procedure are in Metastatic cancer to the res ults the peritoneum section. ELECTROLYTE PANEL Routine 07/29/2021 9:58 Malignant neoplasm o f Results for this AM [employer] unspecified ovar y procedure are in Metastatic cancer to the res ults the peritoneum section. BLOOD UREA NITROGEN Routine 07/29/2021 9:58 Malignant neoplasm of Results for this AM [employer] unspecified ovar y procedure are in Metastatic cancer to the res ults the peritoneum section. GLUCOSE LEVEL Routine 07/29/2021 9:58 Malignant neoplasm of Re sults for this AM [employer] unspecified ovar y procedure are in Metastatic cancer to the res ults the peritoneum section. MANUAL DIFFERENTIAL Routine 07/29/2021 9:58 Malignant neoplasm of Results for this AM [employer]DER unspecified ovar y procedure are in Metastatic cancer to the res ults the peritoneum section. Results CBC Routine 07/29/2021 9:58 Malignant neoplasm of Res ults for this AM [employer]DER unspecified ovar y procedure are in Metastatic cancer to the res ults the peritoneum section. URINALYSIS WITH Routine 07/29/2021 9:58 Malignant neoplasm of Results for this MICROSCOPIC IF AM [employer]DER unspecified ovar y procedure are in INDICATED Metastatic cancer to the res ults the peritoneum section. MAGNESIUM LEVEL Routine 07/29/2021 9:58 Malignant neoplasm of Results for this AM [employer] unspecified ovar y procedure are in Metastatic cancer to the res ults the peritoneum section. ASPARTATE Routine 07/29/2021 9:58 Malignant neoplasm of Res ults for this AMINOTRANSFERASE AM [employer] W[employer]DER unspecified ova ry procedure are in Metastatic cancer to the res ults the peritoneum section. ALANINE Routine 07/29/2021 9:58 Malignant neoplasm of Res ults for this AMINOTRANSFERASE AM [employer]DER unspecified ova ry procedure are in Metastatic cancer to the res ults the peritoneum section. BILIRUBIN TOTAL Routine 07/29/2021 9:58 Malignant neoplasm of Results for this AM [employer] unspecified ovar y procedure are in Metastatic cancer to the res ults the peritoneum section. BASIC METABOLIC PANEL, Routine 07/29/2021 9:58 Malignant neopl asm of CALCIUM TOTAL AM [employer] unspecified ovar y 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 COMPLETE BLOOD COUNT W/ Routine 07/29/2021 9:58 Malignant neop lasm of DIFFERENTIAL AM [employer] unspecified ovar y 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 CANCER ANTIGEN 125 Routine 07/29/2021 9:58 Malignant neoplasm of Results for this AM [employer] unspecified ovar y procedure are in Metastatic cancer to the res ults the peritoneum section. CT CHEST ABDOMEN PELVIS Routine 07/27/2021 1:59 Malignant neop lasm of Results for this W CONTRAST PM [employer] unspecified ovar y procedure are in Metastatic cancer to the res ults the peritoneum section. POC CREATININE Routine 07/27/2021 1:09 Results fo r this PM [employer] procedure are i n the results section. URINE CULTURE Routine 07/08/2021 9:43 Dysuria Results for this AM [employer] procedure are i n the results section. CALCIUM LEVEL TOTAL Routine 07/08/2021 9:21 Malignant neoplasm of Results for this AM [employer] unspecified ovar y procedure are in Metastatic cancer to the res ults the peritoneum section. .GLOMERULAR FILTRATION Routine 07/08/2021 9:21 Malignant neopl asm of Results for this RATE AM [employer] unspecified ovar y procedure are in Metastatic cancer to the res ults the peritoneum section. SERUM CREATININE Routine 07/08/2021 9:21 Malignant neoplasm of Results for this AM [employer] unspecified ovar y procedure are in Metastatic cancer to the res ults the peritoneum section. ELECTROLYTE PANEL Routine 07/08/2021 9:21 Malignant neoplasm o f Results for this AM [employer] unspecified ovar y procedure are in Metastatic cancer to the res ults the peritoneum section. BLOOD UREA NITROGEN Routine 07/08/2021 9:21 Malignant neoplasm of Results for this AM [employer] unspecified ovar y procedure are in Metastatic cancer to the res ults the peritoneum section. GLUCOSE LEVEL Routine 07/08/2021 9:21 Malignant neoplasm of Re sults for this AM [employer] unspecified ovar y procedure are in Metastatic cancer to the res ults the peritoneum section. MANUAL DIFFERENTIAL Routine 07/08/2021 9:21 Malignant neoplasm of Results for this AM [employer] unspecified ovar y procedure are in Metastatic cancer to the res ults the peritoneum section. Results CBC Routine 07/08/2021 9:21 Malignant neoplasm of Res ults for this AM [employer]DER unspecified ovar y procedure are in Metastatic cancer to the res ults the peritoneum section. MAGNESIUM LEVEL Routine 07/08/2021 9:21 Malignant neoplasm of Results for this AM [employer] unspecified ovar y procedure are in Metastatic cancer to the res ults the peritoneum section. ASPARTATE Routine 07/08/2021 9:21 Malignant neoplasm of Res ults for this AMINOTRANSFERASE AM GET[employer] WELDER unspecified ova ry procedure are in Metastatic cancer to the res ults the peritoneum section. ALANINE Routine 07/08/2021 9:21 Malignant neoplasm of Res ults for this AMINOTRANSFERASE AM [employer]DER unspecified ova ry procedure are in Metastatic cancer to the res ults the peritoneum section. BILIRUBIN TOTAL Routine 07/08/2021 9:21 Malignant neoplasm of Results for this AM [employer] unspecified ovar y procedure are in Metastatic cancer to the res ults the peritoneum section. BASIC METABOLIC PANEL, Routine 07/08/2021 9:21 Malignant neopl asm of CALCIUM TOTAL AM [employer] unspecified ovar y 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 COMPLETE BLOOD COUNT W/ Routine 07/08/2021 9:21 Malignant neop lasm of DIFFERENTIAL AM [employer]DER unspecified ovar y 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 CANCER ANTIGEN 125 Routine 07/08/2021 9:21 Malignant neoplasm of Results for this AM [employer] unspecified ovar y procedure are in Metastatic [...] the res ults the peritoneum section. after 06/13/2021 Results Urinalysis w/Microscopic If Indicated (06/02/2022 2:49 PM CDT)Only the most recent of9 resultswithin the time period is included. athologist Signature UA Color Light Yellow Straw-Trigg [facility] ow Comment: All components of UA Macroscopi c performed at [facility], [address] [place] [address] UA Appear Clear Clear [place] Comment: As part of the UA Macroscopic p erformed at [facility], [address] [place] [address] UA Glucose NEG NEG mg/dL [place] Comment: As part of the UA Macroscopic p erformed at [facility], [address] [place] [address] UA Bili NEG NEG [place] Comment: As part of the UA Macroscopic p erformed at [facility], [address] [place] [address] UA Ketones NEG NEG mg/dL [place] Comment: As part of UA Macroscopic or as an individual orderable testing performed at [facility], [address] [place] [address] UA Spec Grav 1.015 1.003 - 1.035 [place] Comment: As part of UA Macroscopic or as an individual orderable testing performed at [facility], [address] [place] [address] UA Blood NEG NEG [place] Comment: As part of the UA Macroscopic p erformed at [facility], [address] [place] [address], [place] [address] UA pH 6.0 5.0 - 9.0 [place] Comment: As part of UA Macroscopic or as an individual orderable testing performed at [facility], [address] [place] [address] UA Protein NEG NEG mg/dL [place] Comment: As part of the UA Macroscopic p erformed at [facility], [address] [place] [address], [place] [address] UA Urobilinogen NEG NEG [place] Comment: As part of the UA Macroscopic p erformed at [facility], [address] [place] [address], [place] [address] UA Nitrite NEG NEG [place] Comment: As part of the UA Macroscopic p erformed at [facility], [address] [place] [address], [place] [address] UA Leuk Est NEG NEG [place] Comment: As part of the UA Macroscopic p erformed at [facility], [address] [place] [address], [place] [address] UA Comment See Comment [place] Comment: No microscopic exam performed, physioche mical findings are negative As part of the UA Macroscopic performed at [facility], [address] [place] [address] Specimen Anatomical Collection Method Collection Time Receive d Time (Source) Location / / Volume Laterality Urine 06/02/2022 2:49 PM 2 2:50 CDT PM CDT Almita Batres MD URINE ORDERABLES Performing Organization Address City/State/ZIP Code Phon e Number [place] [address] .Serum Creatinine (06/02/2022 2:43 PM CDT)Only the most recent of15 results within the time period is included. athologist Signature Creatinine 0.63 0.51 - 0.95 [place] mg/dL Comment: Testing performed at [facility], [address] [place] [address] Specimen Anatomical Collection Method Collection Time Receive d Time (Source) Location / / Volume Laterality Blood 06/02/2022 2:43 PM 2:46 CDT PM CDT Almita Batres MD LAB BLOOD ORDERABLES Performing Organization Address City/State/ZIP Code Phon e Number [address] (ABNORMAL) .CBC (06/02/2022 2:43 PM CDT)Only the most recent of15 resultswithin the time period is included. athologist Signature WBC 3.8 (L) 4.0 - 11.0 [place] K/uL Comment: All components of the CBC perfo rmed at [facility], [address] [place] [address] RBC 3.15 (L) 4.00 - 5.50 M/uL [place] Comment: As part of CBC testing performe d at [facility], [address] [place] [address] Hgb 9.2 (L) 12.0 - 16.0 gm/dL [place] Comment: As part of CBC or as an individ ual orderable testing performed at [facility], [address] [place] [address] Hct 28.3 (L) 37.0 - 47.0 % [place] Comment: As part of CBC or as an individ ual orderable testing performed at [facility], [address] [place] [address] MCV 90 82 - 98 fL [place] Comment: As part of CBC testing performe d at [facility], [address] [place] [address] MCH 29.2 27.0 - 31.0 pg [place] Comment: As part of CBC testing performe d at [facility], [address] [place] [address] MCHC 32.5 31.0 - 36.0 gm/dL [place] Comment: As part of CBC testing performe d at [facility], [address] [place], [place] [id number] RDW-SD 54.9 (H) 35.1 - 46.3 fL [place] Comment: As part of CBC testing performe d at [facility], [address] [place] [address] RDW-CV 17.4 (H) 12.0 - 15.5 % [place] Comment: As part of CBC testing performe d at [facility], [address] [place] [address] Platelet count 115 (L) 140 - 440 K/uL [place] Comment: As part of CBC or as an individ ual orderable testing performed at [facility], [address] [place] [address] MPV 11.2 (H) 4.0 - 10.4 fL [place] Comment: As part of CBC testing performe d at [facility], [address] [place] [address] Specimen Anatomical Collection Method Collection Time Receive d Time (Source) Location / / Volume Laterality Blood 06/02/2022 2:43 PM 2 2:46 CDT PM CDT Almita Batres MD LAB BLOOD ORDERABLES Performing Organization Address City/State/ZIP Code Phon e Number [place] [address] Glomerular Filtration Rate (06/02/2022 2:43 PM CDT)Only the most recent of15 resultswithin the time period is included. athologist Signature eGFR 86 >=60 [place] mL/min/1.73 sq. m Comment: The eGFRcr is calculated with the 2020 KD-EPI creatinine equation using creatinine, patient's age, and sex for adults 18 years of age and older. Other factors, especially muscle mass, may affect accuracy and need to be considered. According to the Kidney Disease: Improvi ng Global Outcomes (KDIGO) CKD Work Group 2012 Clinical Practice Guideline, chronic kidney disease (CKD) is defined as the abnormalities of kidney structure or function, present for more than 3 months, with implications for health. CKD should be c lassified by cause, GFR category, and albuminuria category. KDIGO guidelines provide the following GFR categories Stage Description GFR mL/min/1.73 m2 G1* Normal or high >= 90 G2* Mildly decreased 60-89 G3a Mildly to moderately decreased 45-59 G3b Moderately to severely decreased 30- 44 G4 Severely decreased 15-29 G5 Kidney failure <15 *In the absence of evidence of kidney da mage, neither G1 nor G2 fulfill criteria for CKD. Testing performed at [facility], [address] [place] [address] Specimen Anatomical Collection Method Collection Time Receive d Time (Source) Location / / Volume Laterality Blood 06/02/2022 2:43 PM 2:46 CDT PM CDT Almita Batres MD LAB BLOOD ORDERABLES Performing Organization Address City/State/ZIP Code Phon e Number [address] (ABNORMAL) Differential (06/02/2022 2:43 PM CDT)Only the most recent of15 resultswithin the time period is included. athologist Signature Neutrophil % 57.3 42.0 - 66.0 [facility] % Comment: All components of the Different ial performed at [facility], [address] [place] [address] Lymphocyte % 28.9 24.0 - 44.0 % [facility] Comment: As part of Differential, testin g performed at [facility], [address] [place] [address] Monocyte % 10.9 (H) 2.0 - 7.0 % [facility] Comment: As part of Differential, testin g performed at [facility], [address] [place] [address] Eosinophil % 2.9 1.0 - 4.0 % [facility] Comment: As part of Differential, testin g performed at [facility], [address] [place] [address] Basophil % 0.0 0.0 - 1.0 % [facility] Comment: As part of Differential, testin g performed at [facility], [address] [place] [address] Neutrophil Abs 2.16 1.70 - 7.30 K/uL [place] Comment: As part of Differential, testin g performed at [facility], [address] [place], [place] [id number] Lymphocyte Abs 1.09 1.00 - 4.80 K/uL [facility] [place] Comment: As part of Differential, testin g performed at [facility], [address] [place], [place] [id number] Monocyte Abs 0.41 0.08 - 0.70 K/uL [place] Comment: As part of Differential, testin g performed at [facility], [address] [place], [place] [id number] Eosinophil Abs 0.11 0.04 - 0.40 K/uL [facility] [place] Comment: As part of Differential, testin g performed at [facility], [address] [place], [place] [id number] Basophil Abs 0.00 0.00 - 0.10 K/uL [place] Comment: As part of Differential, testin g performed at [facility], [address] [place] [address] Specimen Anatomical Collection Method Collection Time Receive d Time (Source) Location / / Volume Laterality Blood 06/02/2022 2:43 PM 2 2:46 CDT PM CDT Almita Batres MD LAB BLOOD ORDERABLES Performing Organization Address City/State/ZIP Code Phon e Number [address] (ABNORMAL) [place] 125 (06/02/2022 2:43 PM CDT)Only the most recent of14 results within the time period is included. P athologist Signature [place] 125 139.7 (H) <=38.0 U/mL [place] Comment: Results greater than 11,500.0 U/L may no t be reliable due to matrix effect with extended dilution as it exceeds the route sales associate s recommended limit. Caution should be exercised when interpreting such values and done in conjunction with cli nical context. Reference intervals are not available fo r male patients. Results should be interpreted in conjunction with clinical context. This test is measured by electrochemilum inescence immunoassay on Katherine Nilesh immunoassay analyzers. Results obtained in different methods are not interchangeable. Testing performed at [facility], [address] [place] [address] Specimen Anatomical Collection Method Collection Time Receive d Time (Source) Location / / Volume Laterality Blood 06/02/2022 2:43 PM 2 2:46 CDT PM CDT Almita Batres MD LAB BLOOD ORDERABLES Performing Organization Address City/[facility]/ZIP Code Phon e Number [address] BUN (06/02/2022 2:43 PM CDT)Only the most recent of15 resultswithin the time period is included. athologist Signature BUN 14 6 - 23 mg/dL [place] Comment: Testing performed at [facility], [address] [place] [address] Specimen Anatomical Collection Method Collection Time Receive d Time (Source) Location / / Volume Laterality Blood 06/02/2022 2:43 PM 2 2:46 CDT PM CDT Almita Batres MD LAB BLOOD ORDERABLES Performing Organization Address City/[facility]/ZIP Code Phon e Number [address] ALT (06/02/2022 2:43 PM CDT)Only the most recent of15 resultswithin the time period is included. athologist Signature ALT 10 <=33 U/L [place] Comment: Testing performed at [facility], [address] [place] [address] Specimen Anatomical Collection Method Collection Time Receive d Time (Source) Location / / Volume Laterality Blood 06/02/2022 2:43 PM 2 2:46 CDT PM CDT Almita Batres MD LAB BLOOD ORDERABLES Performing Organization Address City/State/ZIP Code Phon e Number [address] AST (06/02/2022 2:43 PM CDT)Only the most recent of15 resultswithin the time period is included. athologist Signature AST 26 <=32 U/L [place] Comment: Testing performed at [facility], [address] [place] [address] Specimen Anatomical Collection Method Collection Time Receive d Time (Source) Location / / Volume Laterality Blood 06/02/2022 2:43 PM 2 2:46 CDT PM CDT Almita Batres MD LAB BLOOD ORDERABLES Performing Organization Address City/[facility] [place] [address] [place] [address] (ABNORMAL) Glucose Level (06/02/2022 2:43 PM CDT)Only the most recent of15 resultswithin the time period is included. athologist Signature Glucose Level 123 (H) 70 - 99 [place] mg/dL Comment: Effective 03/15/16, the glucose reference intervals have been updated based on [place] [employer] guidelines (Standards of Medical Care in Diabetes 2016. Diabetes Care 2016; 39: S13-S22). Fasting blood glucose: Normal: 70-99 mg/dL Impaired fasting glucose (increased risk for diabetes or pre-diabetes): 100- 125 mg/dL Diabetes mellitus: >/=126 mg/dL Random blood glucose: Normal: 70-199 mg/dL Note: Random glucose >100 mg/dL is assoc iated with increased risk for diabetes Testing performed at [facility], [address] [place], [place] [address] Specimen Anatomical Collection Method Collection Time Receive d Time (Source) Location / / Volume Laterality Blood 06/02/2022 2:43 PM 2 2:46 CDT PM CDT Almita Batres MD LAB BLOOD ORDERABLES Performing Organization Address City/[facility] Phon e Number [place] [phone] [address] [place] [address] Calcium Level (06/02/2022 2:43 PM CDT)Only the most recent of15 resultswithin the time period is included. athologist Signature Calcium Lvl 9.0 8.4 - 10.2 [place] mg/dL Comment: Testing performed at [facility], [address] [place], [place] [address] Specimen Anatomical Collection Method Collection Time Receive d Time (Source) Location / / Volume Laterality Blood 06/02/2022 2:43 PM 2 2:46 CDT PM CDT Almita Batres MD LAB BLOOD ORDERABLES Performing Organization Address [facility] Phon e Number [place] [phone] [place] [address] Bilirubin, total (06/02/2022 2:43 PM CDT)Only the most recent of13 resultswithin the time period is included. athologist Signature Bili Total <0.3 <=1.2 mg/dL [place] Comment: Indocyanine Green (ICG) may cause falsel y elevated bilirubin results. Total and direct bilirubin must not be measured from samples containing indocyanine green. False elevation of total bilirubin can b e seen in patients with IgG concentrations above 28 g/L. Testing performed at [facility], [address] [place], [place] [address] Specimen Anatomical Collection Method Collection Time Receive d Time (Source) Location / / Volume Laterality Blood 06/02/2022 2:43 PM 2 2:46 CDT PM CDT Almita Batres MD LAB BLOOD ORDERABLES Performing Organization Address [facility] Phon e Number [place] [phone] [place] [address] Electrolyte Panel (06/02/2022 2:43 PM CDT)Only the most recent of15 results within the time period is included. athologist Signature Sodium Lvl 137 136 - 145 [place] mEq/L Comment: Testing performed at [facility], [address] [place], [place] [address] Potassium Lvl 4.9 3.5 - 5.1 mEq/L [place] Comment: Testing performed at [facility], [address] [place], [place] [id number] Chloride 105 98 - 107 mEq/L [place] Comment: Testing performed at [facility], [address] [place] [address] CO2 26 22 - 29 mEq/L [place] Comment: Testing performed at [facility], [address] [place] [address] Anion Gap 6 4 - 14 mEq/L [place] Comment: Testing performed at [facility], [address] [place] [address] Specimen Anatomical Collection Method Collection Time Receive d Time (Source) Location / / Volume Laterality Blood 06/02/2022 2:43 PM 2 2:46 CDT PM CDT Almita Batres MD LAB BLOOD ORDERABLES Performing Organization Address City/State/ZIP Code Phon e Number [address] (ABNORMAL) Urinalysis with Microscopic (04/21/2022 12:44 PM CDT)Only the most recent of8 resultswithin the time period is included. P athologist Signature UA WBC 51-100 (A) 0 - 2 /HPF [place] Comment: All components of UA Microscopi c Exam performed at [facility], [address] [place] [address], [place] [address] UA RBC 11-25 (A) 0 - 2 /HPF [place] Comment: As part of the UA Microscopic E xam performed at [facility], [address] [place] [address], [place] [address] UA Mucous TRACE Not Seen-Trace /HPF [place] Comment: As part of the UA Microscopic E xam performed at [facility], [address] [place] [address], [place] [address] UA Bacteria Few (A) NOT SEEN /HPF [place] Comment: As part of the UA Microscopic E xam performed at [facility], [address] [place] [address], [place] [address] UA Squam Epi OCC None-Occasional /HPF [place] Comment: As part of the UA Microscopic E xam performed at [facility], [address] [place] [address] UA WBC Clump 1+ (A) NOT SEEN /HPF [place] Comment: As part of the UA Microscopic E xam performed at [facility], [address] [place] [address] UA Hyal Cast 0-2 0 - 2 /LPF [place] Comment: As part of the UA Microscopic E xam performed at [facility], [address] [place] [address] Specimen Anatomical Collection Method Collection Time Receive d Time (Source) Location / / Volume Laterality Urine 04/21/2022 12:44 04/21/2022 PM CDT 12:54 PM CDT Narrative [place] - 04/21/2022 1:55 PM CDT Some reporting parameters within the Urinalysis test have changed due to the implementation of new instrumentation in the [facility], allowing greater sensitivity of measurement. Urinalysis results rep orted by the [facility] using existing instrumentation, as well as Urinalysis t esting performed manually or by backup methodology at the [facility] will remain relatively unchanged. New reporting parameters and units will now be reported for all powelles. Adriane DAILEY URINE ORDERABLES Performing Organization Address City/State/ZIP Code Phon e Number [address] (ABNORMAL) Urine Culture (04/21/2022 12:44 PM CDT)Only the most recent of4 resultswithin the time period is included. Component Value Ref Test [facility] Method Time Signature Final Report <10,000 cfu/ml Normal site ruby present. SIMON MENDEZ Generally of low significance. SUSAN Correlate with clinical data and culture history. [facility] Path Review - The results have been review ed and electronically signed by Pathologist: SIMON MENDEZ Urine Ady Coto MD, PhD #[id number] [facility] Specimen Anatomical Collection Method Collection Time Receive d Time (Source) Location / / Volume Laterality Urine 04/21/2022 12:44 04/21/2022 7:33 PM CDT PM CDT Adriane DAILEY MICROBIOLOGY - GENERAL ORDER ROWENA Performing Organization Address City/State/ZIP Code Phon e Number [facility] [place] Unless otherwise noted, [address] all lab tests performed by: Division of Pathology and Laboratory Medicine [address] [facility] Er CT Chest Abdomen Pelvis with and without Contrast (04/20/2022 8:00 PM CDT) Anatomical Region Laterality Modality Abdomen, Pelvis, Chest Computed Tomograp hy Specimen (Source) Anatomical Collection Method Collection Time Re ceived Time Location / / Volume Laterality 04/21/2022 9:00 AM CDT Impressions 04/21/2022 9:46 AM CDT Slight increase in size of the cystic ma ss likely arising from the left ovary when compared to 01/17/2022. The solid mural nodule along the wall of the lesion is stable. 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 Findings: Chest: A right-sided Port-A-Cath extends to the superior vena cava. No enlarged lymph nodes are seen in the chest. No significant pulmonary parenchymal dis ease is seen. There are no pleural effusions. There is a large hiatal hernia. Images are degraded by motion artifact. Abdomen and pelvis: No suspicious liver lesions are identifi ed. The gallbladder is unremarkable. There is no biliary obstruction. The spleen, pancreas and adrenal glands are unremarkable. The kidneys function without hydronephro sis. Small renal cysts are seen. No enlarged lymph nodes are seen in the abdomen or pelvis. The cystic mass in the central pelvis, l ikely arising from the left ovary is slightly increased measuring 8.2 x 6.6 cm (series 14 image 105) compared to 7.8 x 5.9 cm previously. The solid mural nodule a long the left wall of the lesion is stab le measuring approximately 4 cm in maximal dimension. No measurable peritoneal deposits are se en. There is no ascites. There is a large parastomal hernia in th e right upper quadrant around the transverse colostomy. There is no evidence of bowel obstruction. A healed fracture of the left inferior p ubic ramus is stable. Degenerative changes are seen in the spine. 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 Findings: Chest: A right-sided Port-A-Cath extends to the superior vena cava. No enlarged lymph nodes are seen in the chest. No significant pulmonary parenchymal dis ease is seen. There are no pleural effusions. There is a large hiatal hernia. Images are degraded by motion artifact. Abdomen and pelvis: No suspicious liver lesions are identifi ed. The gallbladder is unremarkable. There is no biliary obstruction. The spleen, pancreas and adrenal glands are unremarkable. The kidneys function without hydronephro sis. Small renal cysts are seen. No enlarged lymph nodes are seen in the abdomen or pelvis. The cystic mass in the central pelvis, l ikely arising from the left ovary is slightly increased measuring 8.2 x 6.6 cm (series 14 image 105) compared to 7.8 x 5.9 cm previously. The solid mural nodule along the left wall of the lesion is stable measuring a pproximately 4 cm in maximal dimension. No measurable peritoneal deposits are se en. There is no ascites. There is a large parastomal hernia in th e right upper quadrant around the transverse colostomy. There is no evidence of bowel obstruction. A healed fracture of the left inferior p ubic ramus is stable. Degenerative changes are seen in the spine. IMPRESSION: Slight increase in size of the cystic ma ss likely arising from the left ovary when compared to 01/17/2022. The solid mural nodule along the wall of the lesion is stable. Gaby Escobar ASSISTANT MANAGER PT IMG CT ORDERABLES POC Creatinine (04/20/2022 7:11 PM CDT)Only the most recent of3 resultswithin the time period is included. P athologist Signature POC Crea 0.8 0.6 - [...] Clean Dev Yes POC TELCOR Performing Lab [facility] POC TELCO R Comment: [facility], [address] [place] [address]; Lab Direct or: Isabelle Padilla MD Specimen Anatomical Collection Method Collection Time Receive d Time (Source) Location / / Volume Laterality Blood 04/20/2022 7:11 PM 2 7:11 CDT PM CDT Gaby D White ASSISTANT MANAGER PT POCT ORDERABLES - DEVICE Performing Organization Address City/[facility] Phon e Number POC TELCOR Fractionated Bilirubin (04/20/2022 6:06 PM CDT)Only the most recent of2 results within the time period is included. athologist Signature Bili Total <0.3 <=1.2 mg/dL [facility] Comment: Direct and indirect bilirubin will not b e reported when Total bilirubin result is <0.3 mg/dL Indocyanine Green (ICG) may cause falsel y elevated bilirubin results. Total and direct bilirubin must not be measured from samples containing indocyanine green. False elevation of total bilirubin can b e seen in patients with IgG concentrations above 28 g/L. Specimen Anatomical Collection Method Collection Time Receive d Time (Source) Location / / Volume Laterality Blood 04/20/2022 6:06 PM 2 6:30 CDT PM CDT Gaby Escobar ASSISTANT MANAGER PT LAB BLOOD ORDERABLES Performing Organization Address City/[facility] Phon e Number [facility] Unless otherwise noted, [address] all lab tests performed by: Division of Pathology and Laboratory Medicine [address] [place] [address] Total Protein (04/20/2022 6:06 PM CDT)Only the most recent of2 resultswithin the time period is included. athologist Signature Total Protein 6.7 6.4 - 8.3 [facility] g/dL [facility] Specimen Anatomical Collection Method Collection Time Receive d Time (Source) Location / / Volume Laterality Blood 04/20/2022 6:06 PM 2 6:30 CDT PM CDT Gaby D White ASSISTANT MANAGER PT LAB BLOOD ORDERABLES Performing Organization Address City/[facility]/ZIP Code Phon e Number [facility] Unless otherwise noted, [address] all lab tests performed by: Division of Pathology and Laboratory Medicine [facility] [place] (ABNORMAL) Alkaline Phosphatase (04/20/2022 6:06 PM CDT)Only the most recent of2 resultswithin the time period is included. athologist Signature Alk Phos 122 (H) 35 - 104 [facility] U/L [facility] Specimen Anatomical Collection Method Collection Time Receive d Time (Source) Location / / Volume Laterality Blood 04/20/2022 6:06 PM 2 6:30 CDT PM CDT Gaby D White ASSISTANT MANAGER PT LAB BLOOD ORDERABLES Performing Organization Address City/[facility]/ZIP Code Phon e Number [facility] Unless otherwise noted, [address] all lab tests performed by: Division of Pathology and Laboratory Medicine [facility] [place] Magnesium (04/20/2022 6:06 PM CDT)Only the most recent of13 resultswithin the time period is included. athologist Signature Magnesium 1.6 1.6 - 2.6 [facility] mg/dL [facility] Specimen Anatomical Collection Method Collection Time Receive d Time (Source) Location / / Volume Laterality Blood 04/20/2022 6:06 PM 2 6:30 CDT PM CDT Almita Batres MD LAB BLOOD ORDERABLES Performing Organization Address City/[facility]/ZIP [facility] Phon e Number [facility] Unless otherwise noted, [address] all lab tests performed by: Division of Pathology and Laboratory Medicine [address] [place] [address] [place] Albumin Level (04/20/2022 6:06 PM CDT)Only the most recent of2 resultswithin the time period is included. P athologist Signature Albumin Lvl 4.1 3.5 - 5.2 [facility] gm/dL [facility] Specimen Anatomical Collection Method Collection Time Receive d Time (Source) Location / / Volume Laterality Blood 04/20/2022 6:06 PM 2 6:30 CDT PM CDT Gaby D White ASSISTANT MANAGER PT LAB BLOOD ORDERABLES Performing Organization Address City/[facility]/ZIP Code Phon e Number [facility] Unless otherwise noted, [address] all lab tests performed by: Division of Pathology and Laboratory Medicine [address] [place] [address] Clot Expiration Date (02/17/2022 3:32 PM CDT) [facility] Signature T & S 02/20/2022 [facility] Specimen Anatomical Collection Method Collection Time Receive d Time (Source) Location / / Volume Laterality Blood 02/17/2022 3:32 PM 2 6:46 CDT PM CDT Adriane Paul PA BLOOD BANK TEST ORDERABLES Performing Organization Address City/[facility] Phon e Number [facility] Unless otherwise noted, [address] all lab tests performed by: Division of Pathology and Laboratory Medicine [address] [place] [address] TMP Interpretation Antibody Screen Negative (02/17/2022 3:32 PM CDT) [facility] TMP Auto Neg At the [facility] patient plasma shows no evidence of RBC alloantibodi es. Comment: MD Ernesto OCHOA Dictated by: MD Ernesto OCHOA Dictated Date/Time: 02.18.2022 8:57 AM C DT Transcribed Date/Time: 02.18.2022 8:57 AM CDT Electronically Signed By: MD Ernesto OCHOA on 02.18.2022 8:57 AM C Specimen Anatomical Collection Method Collection Time Receive d Time (Source) Location / / Volume Laterality Blood 02/17/2022 3:32 PM 2 6:46 CDT PM CDT Adriane Unke PA BLOOD BANK TEST ORDERABLES Performing Organization Address City/[facility]/ZIP Code Phon e Number [facility] Unless otherwise noted, [address] all lab tests performed by: Division of Pathology and Laboratory Medicine [address] [place] Confirm ABORh (02/17/2022 3:32 PM CDT) P athologist Signature ABORh Confirm. A NEG [facility] Specimen Anatomical Collection Method Collection Time Receive d Time (Source) Location / / Volume Laterality Blood 02/17/2022 3:32 PM 2 6:46 CDT PM CDT Dariane Unke PA BLOOD BANK TEST ORDERABLES Performing Organization Address City/[facility] Code Phon e Number [facility] Unless otherwise noted, [address] all lab tests performed by: Division of Pathology and Laboratory Medicine [address] [place] ABORh (02/17/2022 3:32 PM CDT) athologist Signature ABORh. A NEG [facility] Specimen Anatomical Collection Method Collection Time Receive d Time (Source) Location / / Volume Laterality Blood 02/17/2022 3:32 PM 2 6:46 CDT PM CDT Adriane Unke PA BLOOD BANK TEST ORDERABLES Performing Organization Address City/[facility]/ZIP Code Phon e Number [facility] Unless otherwise noted, [address] all lab tests performed by: Division of Pathology and Laboratory Medicine [address] [place] Antibody Screen (02/17/2022 3:32 PM CDT) athologist Signature ABSC. Negative ABSC [facility] Specimen Anatomical Collection Method Collection Time Receive d Time (Source) Location / / Volume Laterality Blood 02/17/2022 3:32 PM 2 6:46 CDT PM CDT Adriane Unke PA BLOOD BANK TEST ORDERABLES Performing Organization Address City/[facility] Code Phon e Number [facility] Unless otherwise noted, [address] all lab tests performed by: Division of Pathology and Laboratory Medicine [address] [facility] Er Pain Management Fluoroscopy (02/17/2022 2:36 PM CDT)Only the most recent of2 resultswithin the time period is included. Specimen (Source) Anatomical Location Collection Method / Collectio n Time Received Time / Laterality Volume Narrative Systemgenerated, Documentation - 022 2:36 PM CDT This procedure requires no interpretatio n from the radiologist. Jacek Kimball MD IMG NON DI ORDERABLES CT chest abdomen pelvis w contrast (01/17/2022 8:06 PM CDT)Only the most recent of3 resultswithin the time period is included. Anatomical [...] 1. Slight increase in size of the comple x cystic-solid pelvic mass, compared to 10/04/2021. In particular, the left lateral wall solid component appears increased in the interim. 2. Previously noted tiny nonocclusive th rombus in the right internal jugular vein adjacent to the port catheter is decreased compared to prior study. Other findings as described above. 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 This may be confirmed with MRI, as clinically warranted. Narrative 08/15/2021 2:10 PM GETTER WELDER FULL RESULT: Examination: US UPPER EXTREMITY LIMITED [...] warranted. 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
--- OUTSIDE RECORDS SUMMARY | 2022-06-13 11:35 | XMS REPORT | Continuity of Care Document ---
:1935 Author Organization [facility] t Address [address] [place] [address] Care Team Providers Name Role Phone [phone] Primary Care Physician Unavailable SYSTEM, PROVIDER NOT IN Attending Clinician Unavailable Viraj Batres MD Attending Clinician Leana Gurrola Attending Clinician VIRAJ BATRES Attending Clinician Unavailable Alexus Dupree RN Attending Clinician Adriane Hernandes Attending Clinician ADRIANE ESPARZA Attending Clinician Unavailable Tammie Hernández RN Attending Clinician Unavailable Jacek Kimball MD Attending Clinician Zoe Escobar NP Attending Clinician ZOE ESCOBAR Attending Clinician Unavailable Amita BELTRAN, Rena Benedict Attending Clinician Unavailable Monica Andrews RN Attending Clinician Unavailable Dallas Crowley RN Attending Clinician Unavailable JACEK KIMBALL Attending Clinician Unavailable Teri BELTRAN, Karla L Attending Clinician Unavailable Meche Crystal RN December Attending Clinician Nick Bolaños Attending Clinician Unavailable Hazel Lewis RN Attending Clinician Unavailable NICK MCCALLUM Attending Clinician Unavailable Kelsey Meyer MD Attending Clinician Michael Simpson MD Attending Clinician [phone] Madina Coyle RN, I Attending Clinician Unavailable Jozef Mendez MD Attending Clinician Cole Mcknight MD Attending Clinician Miguel Melo Attending Clinician Harrison BELTRAN, Abdullahi Webb Attending Clinician Unavailable VALERIE BALTAZAR Attending Clinician Unavailable MIGUEL ADAMS Attending Clinician Unavailable JARETT GAFFNEY Attending Clinician Unavailable GUERITA GAGNON Attending Clinician Unavailable JARETT GAFFNEY Admitting Clinician Unavailable Payers Payer Name Policy Type Policy Number Effective Date Expiration Date S luanne MEDICARE PART A AND [id number] 1988 B 00:00:00 [facility] [id number] 2019 NON CONTRACTED 00:00:00 Problems Condition Condition Condition Status Onset Resolution Last Treating Co mments Source Name Details Category Date Date Treatment Clinician Date Mass of Mass of Disease Active 2020-08 [facility] muscle of muscle of 2-10 [place] of left [place] limb limb 00 [place] [facility] Encounter Encounter Disease Active Uni vers for for 4-09 ity of examinatio exam[place] prior to n prior to 00 antineopla antineopla An derso stic stic n chemothera chemothera Ca ncer py py Center Other Other Disease Active Overview: 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 Center Added automatic ally from request for surgery Rheumatoid Rheumatoid Disease Active Overview : Univers arthritis arthritis 09-10 Formattin i ty of with with 00:00: g of this [place] rheumatoid rheumatoid 00 note factor of factor of might be An derso unspecifie unspecifie different n d site d site from the Cancer without without original. Cente r organ or organ or Added systems systems automatic involvemen involvemen ally from t t request for surgery Cardiomega Cardiomega Disease Active 2019-08 U nivers ly ly 2-11 ity of 00:00: [place] 00 MD [facility] Pulmonary Pulmonary Disease Active 2020- Uni vers hypertensi hypertensi 2-11 it y of on on 00:00: [place] 00 MD Susan broussard [facility] Metastatic Metastatic Disease Active 2020- U nivers cancer to cancer to 2-11 ity of the the 00:00: [place] peritoneum peritoneum 00 MD Susan broussard [facility] Colostomy Colostomy Disease Active 2020- Uni vers status status 2-11 ity of 00:00: [place] 00 MD Susan broussard [facility] Frailty Frailty Disease Active 2020- Univers 2-11 ity of 00:00: [place] 00 MD Susan broussard [facility] Chronic Chronic Disease Active 2020- Univers pain pain 2-11 ity of 00:00: [place] 00 MD Susan broussard [facility] Opioid Opioid Disease Active 2020 Univers abuse abuse 2-11 ity of continuous continuous [place] use use 00 MD Susan broussard [facility] H/O: H/O: Disease Active 2020- Univers pulmonary pulmonary 2-11 ity of embolus embolus 00:00: [place] 00 MD Susan broussard [facility] 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 2-11 ity of use of use of 00:00: [place] anticoagul anticoagul 00 ant ant Susan [facility] Gastroesop Gastroesop Disease Active 2020- U nivers hageal hageal 2-11 ity of reflux reflux 00:00: [place] disease disease 00 MD Susan broussard [facility] Herpes Herpes Disease Active 2020- Univers zoster zoster 2-11 ity of 00:00: [place] 00 MD Susan broussard [facility] Deep Deep Disease Active 2020 Univers venous venous 2-11 ity of thrombosis thrombosis [place] 00 [place] [facility] broussard [facility] Cancer Cancer Disease Active 2020- Univers associated associated 2-11 it y of pain pain 00:00: [place] 00 MD Susan broussard [facility] Coronary Coronary Disease Active 2020- Unive rs atheroscle atheroscle 2-10 it y of rosis of rosis of 00:00: [place] [facility] 00 coronary coronary Kevin o artery artery [facility] Essential Essential Disease Active 2020- Uni vers hypertensi hypertensi 2-10 it y of on on 00:00: [place] 00 MD [facility] 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 2-10 it y of emia emia 00:00: [place] 00 MD [facility] Obstructiv Obstructiv Disease Active 2019-08 U nivers e sleep e sleep 2-10 ity of apnea apnea 00:00: [place] syndrome syndrome 00 MD [facility] Rheumatoid Rheumatoid Disease Active 2019-08 U nivers arthritis arthritis 2-10 ity of 00:00: [place] MD [facility] Fibromyalg Fibromyalg Disease Active U nivers ia ia 5-06 ity of 00:00: [place] 00 MD [facility] Parastomal Parastomal Disease Active U nivers hernia hernia 3-04 ity of without without 00:00: [place] obstructio obstructio 00 n or n or [facility] 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, arcinoma, 00:00: [place] NOS of NOS of 00 ovary ovary Susan <Bilateral <Bilateral n > > [facility] Atrial Atrial Disease Active Univers fibrillati fibrillati 7-12 it y of on on 00:00: [place] MD [facility] Chronic Chronic Disease Active Univers obstructiv obstructiv 7-12 it y of e e 00:00: [place] pulmonary pulmonary 00 disease disease Kevin [facility] Diverticul Diverticul Disease Active U nivers itis of itis of 7-12 ity of colon colon 00:00: [place] 00 MD [facility] Allergies, Adverse Reactions, Alerts Allergy Allergy Status Severity Reaction(s) Onset Inactive Treating Comm ents Source Name Type Date Date Clinician Sulfamet Propensi Active Shortness Of 2019-08 Univers hoxazole ty to Breath 2-11 ity of -Trimeth adverse 00:00: [place] oprim reaction 00 MD [facility] Metoprol Propensi Active Other (See 2019-08 Brachycar Univers ol ty to Comments) 2-11 chelsi, ity of Succinat adverse 00:00: hypotensi [place] reaction 00 on MD [facility] SULFAMET DRUG Active High Hives 2020-1 MD HOXAZOLE 2-11 Anders[place] -TRIMETH 00:00: n OPRIM 00 METOPROL DRUG Active Other 2020-1 MD OL INGREDI 2-11 Anderso SUCCINAT 00:00: n E 00 SULFAMET DRUG Active High Hives 2020-1 MD HOXAZOLE 2-11 [place] -TRIMETH 00:00: n OPRIM 00 METOPROL DRUG Active Other 2020-1 MD OL INGREDI 2-11 Anderso SUCCINAT 00:00: n E 00 SULFAMET DRUG Active High Hives 2020-1 MD HOXAZOLE 2-11 [place] -TRIMETH 00:00: n [place] 00 METOPROL DRUG Active Other 2020-1 MD OL INGREDI 2-11 Anderso SUCCINAT 00:00: n E 00 SULFAMET DRUG Active High Hives 2020-1 MD HOXAZOLE 2-11 [place] -TRIMETH 00:00: n [place]PR[place] 00 METOPROL DRUG Active Other 2020-1 MD OL INGREDI 2-11 Anderso SUCCINAT 00:00: n E 00 SULFAMET DRUG Active High Hives 2020-1 MD HOXAZOLE 2-11 [place] -TRIMETH 00:00: n OPRIM 00 METOPROL DRUG Active Other 2020-1 MD OL INGREDI 2-11 Anderso SUCCINAT 00:00: n E 00 SULFAMET DRUG Active High Hives 2020-1 MD HOXAZOLE 2-11 [place] -TRIMETH 00:00: n OPR[place] 00 METOPROL DRUG Active Other 2020-1 MD OL INGREDI 2-11 Anderso SUCCINAT 00:00: n E 00 SULFAMET DRUG Active High Hives 2020-1 MD HOXAZOLE 2-11 [place] -TRIMETH 00:00: n OPRIM 00 METOPROL DRUG Active Other 2020-1 MD OL INGREDI 2-11 Anderso SUCCINAT 00:00: n E 00 SULFAMET DRUG Active High Hives 2020-1 MD HOXAZOLE 2-11 [place] -TRIMETH 00:00: n OPRIM 00 METOPROL DRUG Active Other 2020-1 MD OL INGREDI 2-11 Anderso SUCCINAT 00:00: n E 00 SULFAMET DRUG Active High Hives 2020-1 MD HOXAZOLE 2-11 [place] -TRIMETH 00:00: n OPR[place] 00 METOPROL DRUG Active Other 2020-1 MD OL INGREDI 2-11 Anderso SUCCINAT 00:00: n E 00 SULFAMET DRUG Active High Hives 2020-1 MD HOXAZOLE 2-11 [place] -TRIMETH 00:00: n OPRIM 00 METOPROL DRUG Active Other 2020-1 MD OL INGREDI 2-11 Anderso SUCCINAT 00:00: n E 00 SULFAMET DRUG Active High Hives 2020-1 MD HOXAZOLE 2-11 [place] -TRIMETH 00:00: n OPRIM 00 METOPROL DRUG Active Other 2020-1 MD OL INGREDI 2-11 Anderso SUCCINAT 00:00: n E 00 SULFAMET DRUG Active High Hives 2020-1 MD HOXAZOLE 2-11 Anderso -TRIMETH 00:00: n OPRIM 00 METOPROL DRUG Active Other 2020-1 MD OL INGREDI 2-11 Anderso SUCCINAT 00:00: n E 00 SULFAMET DRUG Active High Hives 2020-1 MD HOXAZOLE 2-11 [place] -TRIMETH 00:00: n OPRIM 00 METOPROL DRUG Active Other 2020-1 MD OL INGREDI 2-11 Anderso SUCCINAT 00:00: n E 00 SULFAMET DRUG Active High Hives 2020-1 MD HOXAZOLE 2-11 [place] -TRIMETH 00:00: n OPR[place] 00 METOPROL DRUG Active Other 2020-1 MD OL INGREDI 2-11 Anderso SUCCINAT 00:00: n E 00 SULFAMET DRUG Active High Hives 2020-1 MD HOXAZOLE 2-11 [place] -TRIMETH 00:00: n OPRIM 00 METOPROL DRUG Active Other 2020-1 MD OL INGREDI 2-11 Anderso SUCCINAT 00:00: n E 00 SULFAMET DRUG Active High Hives 2020-1 MD HOXAZOLE 2-11 [place] -TRIMETH 00:00: n OPRIM 00 METOPROL DRUG Active Other 2020-1 MD OL INGREDI 2-11 Anderso SUCCINAT 00:00: n E 00 SULFAMET DRUG Active High Hives 2020-1 MD HOXAZOLE 2-11 [place] -TRIMETH 00:00: n OPRIM 00 METOPROL DRUG Active Other 2020-1 MD OL INGREDI 2-11 Anderso SUCCINAT 00:00: n E 00 SULFAMET DRUG Active High Hives 2020-1 MD HOXAZOLE 2-11 [place] -TRIMETH 00:00: n OPRIM 00 METOPROL DRUG Active Other 2020-1 MD OL INGREDI 2-11 Anderso SUCCINAT 00:00: n E 00 SULFAMET DRUG Active High Hives 2020-1 MD HOXAZOLE 2-11 [place] -TRIMETH 00:00: n OPRIM 00 METOPROL DRUG Active Other 2020-1 MD OL INGREDI 2-11 Anderso SUCCINAT 00:00: n E 00 SULFAMET DRUG Active High Hives 2020-1 MD HOXAZOLE 2-11 [place] -TRIMETH 00:00: n OPRIM 00 METOPROL DRUG Active Other 2020-1 MD OL INGREDI 2-11 Anderso SUCCINAT 00:00: n E 00 SULFAMET DRUG Active High Hives 2020-1 MD HOXAZOLE 2-11 [place] -TRIMETH 00:00: n OPR[place] 00 METOPROL DRUG Active Other 2020-1 MD OL INGREDI 2-11 Anderso SUCCINAT 00:00: n E 00 SULFAMET DRUG Active High Hives 2020-1 MD HOXAZOLE 2-11 [place] -TRIMETH 00:00: n OPR[place] 00 METOPROL DRUG Active Other 2020-1 MD OL INGREDI 2-11 Anderso SUCCINAT 00:00: n E 00 SULFAMET DRUG Active High Hives 2020-1 MD HOXAZOLE 2-11 [place] -TRIMETH 00:00: n OPR[place] 00 METOPROL DRUG Active Other 2020-1 MD OL INGREDI 2-11 Anderso SUCCINAT 00:00: n E 00 SULFAMET DRUG Active High Hives 2020-1 MD HOXAZOLE 2-11 [place] -TRIMETH 00:00: n OPRIM 00 METOPROL DRUG Active Other 2020-1 MD OL INGREDI 2-11 Anderso SUCCINAT 00:00: n E 00 SULFAMET DRUG Active High Hives 2020-1 MD HOXAZOLE 2-11 [place] -TRIMETH 00:00: n OPR[place] 00 METOPROL DRUG Active Other 2020-1 MD OL INGREDI 2-11 Anderso SUCCINAT 00:00: n E 00 SULFAMET DRUG Active High Hives 2020-1 MD HOXAZOLE 2-11 [place] -TRIMETH 00:00: n OPR[place] 00 METOPROL DRUG Active Other 2020-1 MD OL INGREDI 2-11 Anderso SUCCINAT 00:00: n E 00 SULFAMET DRUG Active High Hives 2020-1 MD HOXAZOLE 2-11 [place] -TRIMETH 00:00: n OPR[place] 00 METOPROL DRUG Active Other 2020-1 MD OL INGREDI 2-11 Anderso SUCCINAT 00:00: n E 00 SULFAMET DRUG Active High Hives 2020-1 MD HOXAZOLE 2-11 [place] -TRIMETH 00:00: n OPRIM 00 METOPROL DRUG Active Other 2020-1 MD OL INGREDI 2-11 Anderso SUCCINAT 00:00: n E 00 SULFAMET DRUG Active High Hives 2020-1 MD HOXAZOLE 2-11 [place] -TRIMETH 00:00: n [place]PR[place] 00 METOPROL DRUG Active Other 2020-1 MD OL INGREDI 2-11 Anderso SUCCINAT 00:00: n E 00 SULFAMET DRUG Active High Hives 2020-1 MD H[place]AZOLE 2-11 [place] -TRIMETH 00:00: n OPR[place] 00 METOPROL DRUG Active Other 2020-1 MD OL INGREDI 2-11 Anderso SUCCINAT 00:00: n E 00 SULFAMET DRUG Active High Hives 2020-1 MD HOXAZOLE 2-11 [place] -TRIMETH 00:00: n OPR[place] 00 METOPROL DRUG Active Other 2020-1 MD OL INGREDI 2-11 Anderso SUCCINAT 00:00: n E 00 SULFAMET DRUG Active High Hives 2020-1 MD HOXAZOLE 2-11 [place] -TRIMETH 00:00: n OPR[place] 00 METOPROL DRUG Active Other 2020-1 MD OL INGREDI 2-11 Anderso SUCCINAT 00:00: n E 00 SULFAMET DRUG Active High Hives 2020-1 MD HOXAZOLE 2-11 [place] -TRIMETH 00:00: n OPR[place] 00 METOPROL DRUG Active Other 2020-1 MD OL INGREDI 2-11 [place]o SUCCINAT 00:00: n E 00 SULFAMET DRUG Active High Hives 2020-1 MD HOXAZOLE 2-11 [place] -TRIMETH 00:00: n OPR[place] 00 METOPROL DRUG Active Other 2020-1 MD OL INGREDI 2-11 Anderso SUCCINAT 00:00: n E 00 SULFAMET DRUG Active High Hives 2020-1 MD HOXAZOLE 2-11 [place] -TRIMETH 00:00: n OPRIM 00 METOPROL DRUG Active Other 2020-1 MD OL INGREDI 2-11 [place]o SUCCINAT 00:00: n E 00 SULFAMET DRUG Active High Hives 2020-1 MD H[place]AZO[place] 2-11 [place] -TRIMETH 00:00: n OPRIM 00 METOPROL DRUG Active Other 2020-1 MD OL INGREDI 2-11 [place]o SUCCINAT 00:00: n E 00 SULFAMET DRUG Active High Hives 2020-1 MD H[place]AZO[place] 2-11 [place] -TRIMETH 00:00: n OPR[place] 00 METOPROL DRUG Active Other 2020-1 MD OL INGREDI 2-11 [place] SUCCINAT 00:00: n E 00 SULFAMET DRUG Active High Hives 2020-1 MD HOXAZOLE 2-11 [place] -TRIMETH 00:00: n OPR[place] 00 METOPROL DRUG Active Other 2020-1 MD OL INGREDI 2-11 Anderso SUCCINAT 00:00: n E 00 SULFAMET DRUG Active High Hives 2020-1 MD HOXAZOLE 2-11 [place] -TRIMETH 00:00: n OPRIM 00 METOPROL DRUG Active Other 2020-1 MD OL INGREDI 2-11 [place]o SUCCINAT 00:00: n E 00 SULFAMET DRUG Active High Hives 2020-1 MD H[place]AZOLE 2-11 [place] -TRIMETH 00:00: n OPRIM 00 METOPROL DRUG Active Other 2020-1 MD OL INGREDI 2-11 [place]o SUCCINAT 00:00: n E 00 SULFAMET DRUG Active High Hives 2020-1 MD H[place]AZOLE 2-11 [place] -TRIMETH 00:00: n OPRIM 00 METOPROL DRUG Active Other 2020-1 MD OL INGREDI 2-11 [place]o SUCCINAT 00:00: n E 00 SULFAMET DRUG Active High Hives 2020-1 MD H[place]AZOLE 2-11 [place] -TRIMETH 00:00: n OPRIM 00 METOPROL DRUG Active Other 2020-1 MD OL INGREDI 2-11 [place]o SUCCINAT 00:00: n E 00 SULFAMET DRUG Active High Hives 2020-1 MD H[place]AZ[place] 2-11 [place] -TRIMETH 00:00: n OPR[place] 00 METOPROL DRUG Active Other 2020-1 MD OL INGREDI 2-11 Anderso SUCCINAT 00:00: n E 00 SULFAMET DRUG Active High Hives 2020-1 MD H[place]AZO[place] 2-11 [place] -TRIMETH 00:00: n OPR[place] 00 METOPROL DRUG Active Other 2020-1 MD OL INGREDI 2-11 Anderso SUCCINAT 00:00: n E 00 SULFAMET DRUG Active High Hives 2020-1 MD [place] 2-11 [place] -TRIMETH 00:00: n OPRIM 00 METOPROL DRUG Active Other 2020-1 MD OL INGREDI 2-11 [place] SUCCINAT 00:00: n E 00 SULFAMET DRUG Active High Hives 2020-1 MD [place] 2-11 [place] -TRIMETH 00:00: n [place] 00 METOPROL DRUG Active Other 2020-1 MD OL INGREDI 2-11 [place] SUCCINAT 00:00: n E 00 SULFAMET DRUG Active High Hives 2020-1 MD [place] 2-11 [place] -TRIMETH 00:00: n OPR[place] 00 METOPROL DRUG Active Other 2020-1 MD OL INGREDI 2-11 [place] SUCCINAT 00:00: n E 00 SULFAMET DRUG Active High Hives 2020-1 MD [place] 2-11 [place] -TRIMETH 00:00: n OPRIM 00 METOPROL DRUG Active Other 2020-1 MD OL INGREDI 2-11 [place] SUCCINAT 00:00: n E 00 SULFAMET DRUG Active High Hives 2020-1 MD [place] 2-11 [place] -TRIMETH 00:00: n OPRIM 00 METOPROL DRUG Active Other 2020-1 MD OL INGREDI 2-11 Anderso SUCCINAT 00:00: n E 00 SULFAMET DRUG Active High Hives 2020-1 MD H[place]AZ[place] 2-11 [place] -TRIMETH 00:00: n OPRIM 00 METOPROL DRUG Active Other 2020-1 MD OL INGREDI 2-11 [place] SUCCINAT 00:00: n E 00 SULFAMET DRUG Active High Hives 2020-1 MD [place] 2-11 [place] -TRIMETH 00:00: n OPRIM 00 METOPROL DRUG Active Other 2020-1 MD OL INGREDI 2-11 [place]o SUCCINAT 00:00: n E 00 SULFAMET DRUG Active High Hives 2020-1 MD H[place] 2-11 [place] -TRIMETH 00:00: n OPRIM 00 METOPROL DRUG Active Other 2020-1 MD OL INGREDI 2-11 [place]o SUCCINAT 00:00: n E 00 SULFAMET DRUG Active High Hives 2020-1 MD H[place] 2-11 [place] -TRIMETH 00:00: n OPRIM 00 METOPROL DRUG Active Other 2020-1 MD OL INGREDI 2-11 [place]o SUCCINAT 00:00: n E 00 SULFAMET DRUG Active High Hives 2020-1 MD H[place]AZOLE 2-11 [place] -TRIMETH 00:00: n OPRIM 00 METOPROL DRUG Active Other 2020-1 MD OL INGREDI 2-11 Anderso SUCCINAT 00:00: n E 00 SULFAMET DRUG Active High Hives 2020-1 MD HOXAZOLE 2-11 [place] -TRIMETH 00:00: n OPRIM 00 METOPROL DRUG Active Other 2020-1 MD OL INGREDI 2-11 Anderso SUCCINAT 00:00: n E 00 SULFAMET DRUG Active High Hives 2020-1 MD HOXAZO[place] 2-11 [place] -TRIMETH 00:00: n OPRIM 00 METOPROL DRUG Active Other 2020-1 MD OL INGREDI 2-11 [place]o SUCCINAT 00:00: n E 00 SULFAMET DRUG Active High Hives 2020-1 MD HOXAZOLE 2-11 [place] -TRIMETH 00:00: n OPRIM 00 METOPROL DRUG Active Other 2020-1 MD OL INGREDI 2-11 Anderso SUCCINAT 00:00: n E 00 SULFAMET DRUG Active High Hives 2020-1 MD HOXAZOLE 2-11 [place] -TRIMETH 00:00: n OPRIM 00 METOPROL DRUG Active Other 2020-1 MD OL INGREDI 2-11 [place]o SUCCINAT 00:00: n E 00 SULFAMET DRUG Active High Hives 2020-1 MD HOXAZ[place] 2-11 [place] -TRIMETH 00:00: n OPRIM 00 METOPROL DRUG Active Other 2020-1 MD OL INGREDI 2-11 Anderso SUCCINAT 00:00: n E 00 SULFAMET DRUG Active High Hives 2020-1 MD H[place]AZO[place] 2-11 [place] -TRIMETH 00:00: n OPRIM 00 METOPROL DRUG Active Other 2020-1 MD OL INGREDI 2-11 [place]o SUCCINAT 00:00: n E 00 SULFAMET DRUG Active High Hives 2020-1 MD HOXAZOLE 2-11 [place] -TRIMETH 00:00: n OPRIM 00 METOPROL DRUG Active Other 2020-1 MD OL INGREDI 2-11 Anderso SUCCINAT 00:00: n E 00 SULFAMET DRUG Active High Hives 2020-1 MD HOXAZOLE 2-11 [place] -TRIMETH 00:00: n OPR[place] 00 METOPROL DRUG Active Other 2020-1 MD OL INGREDI 2-11 [place] SUCCINAT 00:00: n E 00 SULFAMET DRUG Active High Hives 2020-1 MD HOXAZOLE 2-11 [place] -TRIMETH 00:00: n OPRIM 00 METOPROL DRUG Active Other 2020-1 MD OL INGREDI 2-11 [place]o SUCCINAT 00:00: n E 00 SULFAMET DRUG Active High Hives 2020-1 MD HOXAZOLE 2-11 [place] -TRIMETH 00:00: n OPRIM 00 METOPROL DRUG Active Other 2020-1 MD OL INGREDI 2-11 Anderso SUCCINAT 00:00: n E 00 SULFAMET DRUG Active High Hives 2020-1 MD HOXAZOLE 2-11 [place] -TRIMETH 00:00: n OPRIM 00 METOPROL DRUG Active Other 2020-1 MD OL INGREDI 2-11 Anderso SUCCINAT 00:00: n E 00 SULFAMET DRUG Active High Hives 2020-1 MD HOXAZOLE 2-11 [place] -TRIMETH 00:00: n OPRIM 00 METOPROL DRUG Active Other 2020-1 MD OL INGREDI 2-11 Anderso SUCCINAT 00:00: n E 00 SULFAMET DRUG Active High Hives 2020-1 MD HOXAZOLE 2-11 [place] -TRIMETH 00:00: n OPRIM 00 METOPROL DRUG Active Other 2020-1 MD OL INGREDI 2-11 Anderso SUCCINAT 00:00: n E 00 SULFAMET DRUG Active High Hives 2020-1 MD HOXAZOLE 2-11 [place] -TRIMETH 00:00: n OPR[place] 00 METOPROL DRUG Active Other 2020-1 MD OL INGREDI 2-11 Anderso SUCCINAT 00:00: n E 00 SULFAMET DRUG Active High Hives 2020-1 MD HOXAZO[place] 2-11 [place] -TRIMETH 00:00: n OPR[place] 00 METOPROL DRUG Active Other 2020-1 MD OL INGREDI 2-11 [place]o SUCCINAT 00:00: n E 00 SULFAMET DRUG Active High Hives 2020-1 MD HOXAZOLE 2-11 [place] -TRIMETH 00:00: n OPRIM 00 METOPROL DRUG Active Other 2020-1 MD OL INGREDI 2-11 Anderso SUCCINAT 00:00: n E 00 SULFAMET DRUG Active High Hives 2020-1 MD HOXAZOLE 2-11 [place] -TRIMETH 00:00: n OPRIM 00 METOPROL DRUG Active Other 2020-1 MD OL INGREDI 2-11 Anderso SUCCINAT 00:00: n E 00 SULFAMET DRUG Active High Hives 2020-1 MD HOXAZOLE 2-11 [place] -TRIMETH 00:00: n OPRIM 00 METOPROL DRUG Active Other 2020-1 MD OL INGREDI 2-11 Anderso SUCCINAT 00:00: n E 00 SULFAMET DRUG Active High Hives 2020-1 MD HOXAZOLE 2-11 [place] -TRIMETH 00:00: n OPRIM 00 METOPROL DRUG Active Other 2020-1 MD OL INGREDI 2-11 Anderso SUCCINAT 00:00: n E 00 SULFAMET DRUG Active High Hives 2020-1 MD HOXAZOLE 2-11 [place] -TRIMETH 00:00: n OPRIM 00 METOPROL DRUG Active Other 2020-1 MD OL INGREDI 2-11 Anderso SUCCINAT 00:00: n E 00 SULFAMET DRUG Active High Hives 2020-1 MD HOXAZOLE 2-11 [place] -TRIMETH 00:00: n OPRIM 00 METOPROL DRUG Active Other 2020-1 MD OL INGREDI 2-11 Anderso SUCCINAT 00:00: n E 00 SULFAMET DRUG Active High Hives 2020-1 MD HOXAZOLE 2-11 [place] -TRIMETH 00:00: n OPRIM 00 METOPROL DRUG Active Other 2020-1 MD OL INGREDI 2-11 Anderso SUCCINAT 00:00: n E 00 SULFAMET DRUG Active High Hives 2020-1 MD HOXAZOLE 2-11 [place] -TRIMETH 00:00: n OPRIM 00 METOPROL DRUG Active Other 2020-1 MD OL INGREDI 2-11 Anderso SUCCINAT 00:00: n E 00 SULFAMET DRUG Active High Hives 2020-1 MD HOXAZOLE 2-11 [place] -TRIMETH 00:00: n OPRIM 00 METOPROL DRUG Active Other 2020-1 MD OL INGREDI 2- Anderso SUCCINAT 00:00: n E 00 SULFAMET DRUG Active High Hives 2019-08 HOXAZOLE - [place] -TRIMETH 00:00: n OPRIM 00 METOPROL DRUG Active Other 2019-08 OL INGREDI - Anderso SUCCINAT 00:00: n E 00 Family History Family Member Diagnosis Comments Start Date Stop Date Source Natural mother Breast cancer [facility] [place] MD [facility] Social History Social Habit Start Date Stop Date Quantity Comments Source Exposure to 2022-05-23 2022-06-02 Not sure [facility]-CoV-2 00:00:00 14:09:00 Kim stephen (event) [facility] Alcohol intake 2022-04-21 2022-04-21 Ex-drinker [facility] 00:00:00 00:00:00 (finding) [place] [facility] Tobacco use and 2020-07-30 2020-07-30 Smokeless tobacco Un iversity of exposure 00:00:00 00:00:00 non-user [place] MD [facility] Sex Assigned At [birth year] [facility] 00:00:00 [facility]:00 [facility] Smoking Status Start Date Stop Date Source Never smoked tobacco [facility] Medications Ordered Filled Start Stop Current Ordering Indication Dosage Frequency Signature Comments Components Source Medication Medication Date Date Medication? Clinician (SIG) Name Name [facility] 2021-08- Yes Metastatic 50mg Take 1 Univers amide 0-14 1108 cancer to capsule ity o f (CYTOXAN) 00:00: 05:59 the (50 mg) [place] 50 mg 00 :00 peritoneum mouth MD capsule daily for [place] 21 doses. n [facility] cholecalcif Yes 1000U Take 1,000 Univers danny, 9-23 Units by ity of vitamin D3, 14:43: mouth [place] 25 mcg 28 every MD (1,000 morning. [facility] unit) n tablet [facility] docusate Yes 250mg Take 250 Univ ers sodium 9-23 mg by ity of (COLACE) 14:43: mouth [place] 250 mg 28 twice MD capsule daily. [facility] cyclophosph 2021- No Neoplasm, 50mg Take 1 Univers amide 9-23 10-14 malignant capsule ity o f (CYTOXAN) 00:00: 21:07 of ovary (50 mg) by [place] 50 mg 00 :19 <Bilateral> mouth MD capsule daily for [place] 21 doses. n [facility] penicillin Yes 4 (four) Uni vers V potassium 9-19 times a ity o f (VEETID) 00:00: day. [place] 500 mg 00 MD tablet [facility] pregabalin Yes Chronic 50mg Take 1 Un paco (LYRICA) 50 04-21 pain capsule ity o f mg capsule 00:00: (50 mg) by [place] 00 mouth 3 MD (three) [facility] times a n day. Cancer Center ondansetron Yes Neoplasm, 8mg Take 1 [facility] (Zofran) 8 04-21 malignant tablet (8 ity of mg tablet 00:00: of ovary mg) [place] 00 <Bilateral> mouth MD every 8 [facility] (eight) n hours as Cancer needed for Center nausea or vomiting. ciprofloxac 2021- No Dysuria 500mg Take 1 [facility] in HCl 04-21 09-29 tablet ity of (Cipro) 500 00:00: 00:00 (500 mg) [place] mg tablet 00 :00 by mouth MD twice [facility] daily. n [facility] cyclophosph 2021- No Metastatic 50mg Take 1 [facility] amide 04-21 09-23 cancer to capsule ity o f (CYTOXAN) 00:00: 20:12 the (50 mg) [place] 50 mg 00 :55 peritoneum mouth MD capsule daily for [facility]. [facility] pregabalin 2021- No Chronic TAKE 1 U nivers (LYRICA) 50 02-23- pain CAPSULE BY i ty of mg capsule 00:00: 00:00 MOUTH [place] 00 :00 THREE MD TIMES Anderso DAILY [facility] cholecalcif Yes 1000U Take 1,000 Univers danny, 6-10 Units by ity of vitamin D3, 10:26: mouth [place] 25 mcg 42 every MD (1,000 morning. Anderso unit) n tablet Cancer Center docusate 2022-0 Yes 250mg Take 250 Univ ers sodium 6-10 mg by ity of (COLACE) 10:26: mouth [place] 250 mg 42 twice MD capsule daily. [facility] diclofenac Yes Chronic 2g Apply 2 g Univers sodium 6-10 back pain topically ity of (Voltaren) 00:00: to [place] 1 % gel 00 affected MD area(s) 3 Anderso (three) n times a Cancer day. [place] diclofenac Yes Chronic 2g Apply 2 g Univers sodium 6-10 pain topically ity of (Voltaren) 00:00: to [place] 1 % gel 00 affected MD area(s) 4 Anderso (four) n times a Cancer day. [place] diclofenac 2021- No Chronic 2g Apply 2 g Univers sodium 6-10 09-02 back pain topically it y of (Voltaren) 00:00: 00:00 to [place] 1 % gel 00 :00 affected MD area(s) 3 Anderso (three) n times a Cancer day. [place] diclofenac 2021- No Chronic 2g Apply 2 g Univers sodium 6-10 09-02 pain topically ity of (Voltaren) 00:00: 00:00 to [place] 1 % gel 00 :00 affected MD area(s) 4 Anderso (four) n times a Cancer day. [place] pregabalin Yes Chronic TAKE 1 Un paco (LYRICA) 50 3-10 pain CAPSULE BY it y of mg capsule 00:00: MOUTH [place] 00 THREE MD TIMES Anderso DAILY n Cancer [place] pregabalin 2021- No Chronic TAKE 1 U nivers (LYRICA) 50 3-10 07-07 pain CAPSULE BY i ty of mg capsule 00:00: 00:00 MOUTH [place] 00 :00 THREE MD TIMES Anderso DAILY [facility] diclofenac 2021- No Chronic 2g Apply 2 g Univers sodium 3-10 06-10 pain topically ity of (Voltaren) 00:00: 00:00 to [place] 1 % gel 00 :00 affected MD area(s) 4 Anderso (four) n times a Cancer day. [place] diclofenac 2021- No Chronic 2g Apply 2 g Univers sodium 3-10 06-10 pain topically ity of (Voltaren) 00:00: 00:00 to [place] 1 % gel 00 :00 affected MD area(s) 4 Anderso (four) n times a Cancer day. [place] pregabalin 2021- No Chronic TAKE 1 U nivers (LYRICA) 50 10-12 03-10 pain CAPSULE BY i ty of mg capsule 00:00: 00:00 MOUTH [place] 00 :00 THREE MD TIMES Anderso DAILY [facility] pregabalin 2021- No Chronic TAKE 1 U nivers (LYRICA) 50 - 03-10 pain CAPSULE BY i ty of mg capsule 00:00: 00:00 MOUTH [place] 00 :00 THREE MD TIMES Anderso DAILY [facility] ciprofloxac 2021- No Dysuria 250mg Take 1 Univers in HCl 09-1518 tablet ity of (Cipro) 250 00:00: 00:00 (250 mg) [place] mg tablet 00 :00 by mouth MD twice Anderso daily. [facility] ciprofloxac 2021- No Dysuria 250mg Take 1 Univers in HCl 09-1518 tablet ity of (Cipro) 250 00:00: 00:00 (250 mg) [place] mg tablet 00 :00 by mouth MD twice Anderso daily. [facility] ondansetron 2021- No Metastatic 8mg Take 1 Univers (ZOFRAN) 8 08-29 cancer to tablet (8 ity of mg tablet 00:00: 00:00 the mg) by [place] 00 :00 peritoneum mouth MD every 8 Anderso (eight) n hours as Cancer needed for Center nausea or vomiting. ondansetron 2021- No Metastatic 8mg Take 1 Univers (ZOFRAN) 8 08-29 cancer to tablet (8 ity of mg tablet 00:00: 00:00 the mg) by [place] 00 :00 peritoneum mouth MD every 8 Anderso (eight) n hours as Cancer needed for Center nausea or vomiting. ibuprofen 2020-08- No 400mg Take 400 Un paco (ADVIL,MOTR 2-10 12-10 mg by ity of [place]) 200 mg 11:56: 00:00 mouth [place] tablet 13 :00 twice MD daily. Anderso [facility] ibuprofen 2020-08- No 400mg Take 400 Un paco (ADVIL,MOTR 2-10 12-10 mg by ity of [place]) 200 mg 11:56: 00:00 mouth [place] tablet 13 :00 twice MD daily. [facility] HYDROcodone 2020-08- No Chronic .5{tbl} Take 0.5 Univers -acetaminop 2-10 03-10 back pain tablets by ity of hen (NORCO) 00:00: 00:00 [place] 5 mg-325 mg 00 :00 every 8 MD per tablet (eight) Kevin o hours as n needed for Cancer severe Center pain. HYDROcodone 2020-08- No Chronic .5{tbl} Take 0.5 Univers -acetaminop 2-10 03-10 back pain tablets by ity of hen (NORCO) 00:00: 00:00 [place] 5 mg-325 mg 00 :00 every 8 MD per tablet (eight) Kevin o hours as n needed for Cancer severe Center pain. pregabalin 2020-08- No Chronic 50mg Take 1 U nivers (LYRICA) 50 2-10 02-23 pain capsule ity of mg capsule 00:00: 00:00 (50 mg) by [place] 00 :00 mouth 3 MD (three) Anderso times a n day. [facility] pregabalin 2020-08- No Chronic 50mg Take 1 U nivers (LYRICA) 50 2-10 02-23 pain capsule ity of mg capsule 00:00: 00:00 (50 mg) by [place] 00 :00 mouth 3 MD (three) Anderso times a n day. [facility] pregabalin 2020- No Chronic Take 1 U nivers (LYRICA) 50 9-28 12-10 pain capsule by i ty of mg capsule 00:00: 00:00 mouth [place] 00 :00 twice MD daily [facility] pregabalin 2020- No Chronic Take 1 U nivers (LYRICA) 50 9-28 12-10 pain capsule by i ty of mg capsule 00:00: 00:00 mouth [place] 00 :00 twice MD daily [facility] methocarbam 2021- No Chronic 250mg Take 0.5 Univers ol 9-09 06-10 pain tablets ity of (ROBAXIN) 00:00: 00:00 (250 mg) [place] 500 mg 00 :00 by mouth MD tablet every 8 Anderso (eight) n hours as Cancer needed for Center muscle spasms (pain). methocarbam 2021- No Chronic 250mg Take 0.5 Univers ol 04-28 pain tablets ity of (ROBAXIN) 00:00: 00:00 (250 mg) [place] 500 mg 00 :00 by mouth MD tablet every 8 Anderso (eight) n hours as Cancer needed for Center muscle spasms (pain). pregabalin 2020- No Chronic 50mg Take 1 U nivers (LYRICA) 50 04-28 pain capsule ity of mg capsule 00:00: 00:00 (50 mg) by [place] 00 :00 mouth 3 MD (three) Anderso times a n day. [facility] esomeprazol Yes Gastroesoph Take 1 Univers e (NexIUM) 04-22 ageal capsule by it y of 40 MG 00:00: reflux mouth [place] capsule 00 disease daily MD Susan broussard [facility] esomeprazol Yes Gastroesoph Take 1 Univers e (NexIUM) 04-22 ageal capsule by it y of 40 MG 00:00: reflux mouth [place] capsule 00 disease daily MD Susan broussard [facility] rivaroxaban Yes Malignant 20mg Take 1 Univers (Xarelto) 03-22 neoplasm of tablet (20 ity of 20 mg 00:00: unspecified mg) by [place] tablet 00 ovary mouth daily. Susan [facility] rivaroxaban Yes Malignant 20mg Take 1 Univers (Xarelto) 03-22 neoplasm of tablet (20 ity of 20 mg 00:00: unspecified mg) by [place] tablet 00 ovary mouth daily. Susan [facility] esomeprazol 2020- No Gastroesoph Take 1 Univers e (NexIUM) 03-20 ageal capsule by i ty of 40 MG 00:00: 00:00 reflux mouth once [place] capsule 00 :00 disease daily MD Susan broussard [facility] esomeprazol 2020- No Gastroesoph Take 1 Univers e (NexIUM) 02-15 ageal capsule by i ty of 40 MG 00:00: 00:00 reflux mouth once [place] capsule 00 :00 disease daily MD Davis [facility] pregabalin 2020- No Chronic 50mg Take 1 U nivers (LYRICA) 50 02-10- pain capsule ity of mg capsule 00:00: 00:00 (50 mg) by [place] 00 :00 mouth twice Susan daily. [facility] magnesium 2020- No Hypomagnese Take 1 Univers oxide 02-07 ian tablet by ity of (MAOX) 400 00:00: 00:00 mouth [place] mg tablet 00 :00 twice MD daily Susan [facility] rivaroxaban 2020- No Malignant 20mg Take 1 Univers (Xarelto) 12-24 neoplasm of tablet (20 ity of 20 mg 00:00: 00:00 [place] mg[place] tablet 00 :00 [facility] Gastroesoph 40mg Take 1 Univers e (NexIUM) 12-24 ageal capsule ity of 40 MG 00:00: 00:00 reflux (40 mg) by [place] capsule 00 :00 disease [facility] montelukast Yes TAKE 1 Univ ers (SINGULAIR) 3-30 TABLET BY ity of 10 mg 00:00: MOUTH ONCE [place] tablet 00 DAILY MD Davis [facility] montelukast Yes TAKE 1 Univ ers (SINGULAIR) 3-30 TABLET BY ity of 10 mg 00:00: MOUTH ONCE [place] tablet 00 DAILY MD Davis [facility] pregabalin 2020- No Chronic 50mg Take 1 U nivers (LYRICA) 50 11-09 pain capsule ity of mg capsule 00:00: 00:00 (50 mg) by [place] 00 :00 mouth MD varinder Davis daily. [facility] ammonium Yes APPLY Univers lactate 10-24 LOTION ity of (LAC-HYDRIN 00:00: TOPICALLY [place] ) 12% 00 TO MD lotion AFFECTED Anderso AREA TWICE n DAILY Cancer Center ammonium Yes APPLY Univers lactate 3-07 LOTION ity of (LAC-HYDRIN 00:00: TOPICALLY [place] ) 12% 00 TO MD lotion AFFECTED Anders[place] AREA TWICE n DAILY [facility] Center lidocaine-p Yes Encounter Apply to Univers rilocaine 2-08 for Port-A-Cat ity of (EMLA) 00:00: adjustment h area 30 [place] 2.5-2.5% 00 and to 45 MD cream management minutes [facility] prior to n access port Cancer device access as Center directed (topical anesthetic ). lidocaine-p Yes Encounter Apply to Univers rilocaine 2-08 for [place] ity of (EMLA) 00:00: adjustment h area 30 [place] 2.5-2.5% 00 and to 45 MD cream management minutes [facility] prior to n access port Cancer device access as Center directed (topical anesthetic ). pregabalin 2020- No Chronic 25mg Take 1 U nivers (Lyrica) 25 2 08-06 back pain capsule ity of mg capsule 00:00: 00:00 (25 mg) by [place] 00 :00 mouth MD twice Anders[facility] daily. n [facility] ondansetron 2019-08- No Metastatic Take 1 Univers [...] Metastatic 10mg Take 1 Univers azine 17 - cancer to tablet (10 it y of (Compazine) 00:00: 00:00 the mg) by [place] 10 mg 00 :00 peritoneum mouth MD tablet every 6 Anderso (six) n hours as Cancer needed for Center nausea or vomiting. umeclidiniu Yes 1{puff} Inhale 1 Univers m-vilantero 2-26 puff by ity o f L (Anoro 00:00: mouth [place] Ellipta) 00 every 62.5-25 evening. Anderso mcg/actuati n on [facility] umeclidiniu Yes 1{puff} Inhale 1 Univers m-vilantero 2-26 puff by ity o f L (Anoro 00:00: mouth [place] Ellipta) 00 every 62.5-25 evening. Anderso mcg/actuati n on [facility] clonazePAM Yes 1mg Take 1 mg Un paco (KlonoPIN) 8-20 by mouth ity o f 1 mg tablet 00:00: twice [place] 00 daily. MD Susan broussard [facility] clonazePAM Yes 1mg Take 1 mg Un paco (KlonoPIN) 8-20 by mouth ity o f 1 mg tablet 00:00: twice [place] 00 daily. MD Susan broussard [facility] Immunizations Ordered Filled Immunization Date Status Comments Sourc e Immunization Name Name Pfizer SARS-CoV-2 2021-04-18 Completed Univers ity of Vaccination 00:00:00 [facility] Pfizer SARS-CoV-2 2021-04-18 Completed Univer sity of Vaccination (Purple 00:00:00 Kim [facility] Cap) [facility] Vital Signs Vital Name Observation Time Observation Value Comments Source WEIGHT 2021-01-24 09:13:08 52.8 kg WEIGHT 2021-01-21 09:54:00 52.5 kg WEIGHT 2020-12-24 08:53:46 52.3 kg WEIGHT 2020-12-24 08:26:00 52.3 kg WEIGHT 2020-11-26 08:56:00 51.3 kg WEIGHT 2020-10-25 11:52:09 51 kg WEIGHT 2020-09-27 10:27:00 49.3 kg HEIGHT 2020-08-06 09:06:00 152 cm WEIGHT 2020-08-06 09:06:00 49.4 kg Systolic blood 2022-06-02 20:00:46 123 mm[Hg] Univer sity of pressure [facility] Diastolic blood 2022-06-02 20:00:46 71 mm[Hg] Unive rsity of pressure [facility] Heart rate 2022-06-02 20:00:46 76 /min Universi ty of [facility] Body temperature 2022-06-02 20:00:46 36.72 A[place]ia Univ ersity of [facility] Respiratory rate 2022-06-02 20:00:46 18 /min Univ ersity of [facility] Body weight 2022-06-02 19:26:00 50.9 kg Universi ty of [facility] BMI 2022-06-02 19:26:00 23.88 kg/m2 Universi ty of [facility] Oxygen saturation in 2022-04-20 22:38:58 95 /min University of Arterial blood by Kim bazan Pulse oximetry [facility] Center Body height 2022-01-27 17:45:00 146 cm Universi ty of [facility] Body weight 2022-01-27 17:45:00 51.1 kg Universi ty of [facility] BMI 2022-01-27 17:45:00 23.97 kg/m2 Universi ty of [facility] Systolic blood 2022-01-27 17:43:00 140 mm[Hg] Univer sity of pressure [facility] Diastolic blood 2022-01-27 17:43:00 84 mm[Hg] Unive rsity of pressure [facility] Heart rate 2022-01-27 17:43:00 73 /min Universi ty of [facility] Body temperature 2022-01-27 17:43:00 36.39 [place] Univ ersity of [facility] Respiratory rate 2022-01-27 17:43:00 20 /min Univ ersity of [facility] Oxygen saturation in 2021-10-09 17:29:00 97 /min University of Arterial blood by Kim bazan Pulse oximetry [facility] Procedures Procedure Date / Time Performing Clinician Source Performed URINALYSIS WITH 2022-06-02 19:49:00 Viraj Batres [facility] MICROSCOPIC IF INDICATED MD Sam moreno [facility] CANCER ANTIGEN 125 2022-06-02 19:43:00 Viraj Batres Kim Kirkland [facility] COMPLETE BLOOD COUNT W/ 2022-06-02 19:43:00 [facility] BASIC METABOLIC PANEL, 2022-06-02 19:43:00 [facility] BILIRUBIN TOTAL 2022-06-02 19:43:00 Viraj Batres [facility] ALANINE AMINOTRANSFERASE 2022-06-02 19:43:00 Viraj Batres [facility] ASPARTATE AMINOTRANSFERASE 2022-06-02 19:43:00 Viraj Batres [facility] Results CBC 2022-06-02 19:43:00 Viraj Batres [facility] MANUAL DIFFERENTIAL 2022-06-02 19:43:00 [facility] [place] [facility] GLUCOSE LEVEL 2022-06-02 19:43:00 Viraj Batres [facility] BLOOD UREA NITROGEN 2022-06-02 19:43:00 [facility] [place] [facility] ELECTROLYTE PANEL 2022-06-02 19:43:00 Viraj Batres [facility] SERUM CREATININE 2022-06-02 19:43:00 Viraj Batres [facility] .GLOMERULAR FILTRATION 2022-06-02 19:43:00 Viraj Batres [facility] [place] RATE [facility] CALCIUM LEVEL TOTAL 2022-06-02 19:43:00 Viraj [facility]res [facility] [place] [facility] CANCER ANTIGEN 125 2022-05-12 19:13:00 Adriane Esparza [facility] COMPLETE BLOOD COUNT W/ 2022-05-12 19:13:00 [facility] DI[facility] BASIC METABOLIC PANEL, 2022-05-12 19:13:00 [facility] CALCIUM TOTAL [facility] BILIRUBIN TOTAL 2022-05-12 19:13:00 Beverly [facility] ALANINE AMINOTRANSFERASE 2022-05-12 19:13:00 [facility] ASPARTATE AMINOTRANSFERASE 2022-05-12 19:13:00 [facility] CBC 2022-05-12 19:13:00 Adriane Esparza [facility] MANUAL DIFFERENTIAL 2022-05-12 19:13:00 Adriane Esparza [facility] GLUCOSE LEVEL 2022-05-12 19:13:00 Adriane Esparza [facility] BLOOD UREA NITROGEN 2022-05-12 19:13:00 Adriane Esparza [facility] ELECTROLYTE PANEL 2022-05-12 19:13:00 Beverly [facility] SERUM CREATININE 2022-05-12 19:13:00 Beverly [facility] .GLOMERULAR FILTRATION 2022-05-12 19:13:00 Adriane [facility]za [facility] [place] [facility] RATE [facility] CALCIUM LEVEL TOTAL 2022-05-12 19:13:00 Adriane Esparza [facility] URINE CULTURE 2022-04-21 17:44:00 Beverly [facility] URINALYSIS WITH 2022-04-21 17:44:00 Adriane Esparza [facility] MICROSCOPIC IF INDICATED MD Vargas [facility] URINALYSIS MICROSCOPIC 2022-04-21 17:44:00 Adriane [facility]za [facility] [place] [facility] CT CHEST ABDOMEN PELVIS W 2022-04-21 01:00:01 Zoe [facility] WO CONTRAST [facility] POC CREATININE 2022-04-21 00:11:00 Zoe Escobar [facility] CANCER ANTIGEN 125 2022-04-20 23:06:00 [facility]LOOD [facility] W/ 2022-04-20 23:06:00 [facility]aj [facility] DIFFERENTIAL [facility] BASIC METABOLIC PANEL, 2022-04-20 23:06:00 Vir[facility] [place] CALCIUM TOTAL [facility] ALANINE AMINOTRANSFERASE 2022-04-20 23:06:00 Viraj Batres [facility] ASPARTATE AMINOTRANSFERASE 2022-04-20 23:06:00 Viraj Batres [facility] MAGNESIUM LEVEL 2022-04-20 23:06:00 Viraj Batres [facility] COMPREHENSIVE METABOLIC 2022-04-20 23:06:00 Zoe Escobar [facility] PANEL [facility] Results CBC 2022-04-20 23:06:00 Viraj Batres [facility] MANUAL DIFFERENTIAL 2022-04-20 23:06:00 Viraj Batres [facility] GLUCOSE LEVEL 2022-04-20 23:06:00 Viraj Batres [facility] BLOOD UREA NITROGEN 2022-04-20 23:06:00 Viraj Batres [facility] ELECTROLYTE PANEL 2022-04-20 23:06:00 Viraj Batres [facility] SERUM CREATININE 2022-04-20 23:06:00 Viraj Batres [facility] .GLOMERULAR FILTRATION 2022-04-20 23:06:00 Viraj Batres [facility] [place] RATE [facility] CALCIUM LEVEL TOTAL 2022-04-20 23:06:00 Viraj Batres [facility] ALBUMIN LEVEL 2022-04-20 23:06:00 Zoe Escobar [facility] ALKALINE PHOSPHATASE 2022-04-20 23:06:00 Zoe Escobar [facility] TOTAL PROTEIN 2022-04-20 23:06:00 Zoe Escobar [facility] FRACTIONATED BILIRUBIN 2022-04-20 23:06:00 Zoe [facility]obar [facility] [place] [facility] URINALYSIS WITH 2022-03-24 21:10:00 Zoe Escobar [place] MICROSCOPIC IF INDICATED MD Vargas [facility] URINALYSIS MICROSCOPIC 2022-03-24 21:10:00 Zoe Escobar [facility] CANCER ANTIGEN 125 2022-03-24 19:12:00 Viraj Batres [facility] COMPLETE BLOOD COUNT W/ 2022-03-24 19:12:00 [facility]aj [facility] DIFFERENTIAL [facility] BASIC METABOLIC PANEL, 2022-03-24 19:12:00 Viraj Batres [facility] CALCIUM TOTAL [facility] BILIRUBIN TOTAL 2022-03-24 19:12:00 Viraj Batres [facility] ALANINE AMINOTRANSFERASE 2022-03-24 19:12:00 Viraj Batres [facility] ASPARTATE AMINOTRANSFERASE 2022-03-24 19:12:00 Viraj Batres [facility] MAGNESIUM LEVEL 2022-03-24 19:12:00 Viraj Batres [facility] Results CBC 2022-03-24 19:12:00 Viraj Batres [facility] MANUAL DIFFERENTIAL 2022-03-24 19:12:00 Viraj Batres [facility] [place] [facility] GLUCOSE LEVEL 2022-03-24 19:12:00 Viraj Batres [facility] BLOOD UREA NITROGEN 2022-03-24 19:12:00 Viraj Batres [facility] [place] [facility] ELECTROLYTE PANEL 2022-03-24 19:12:00 Viraj Batres [facility] SERUM CREATININE 2022-03-24 19:12:00 Viraj Batres [facility] .GLOMERULAR FILTRATION 2022-03-24 19:12:00 Vir[facility] RATE [facility] CALCIUM LEVEL TOTAL 2022-03-24 19:12:00 Viraj Batres [facility] CANCER ANTIGEN 125 2022-02-24 16:21:00 [facility] COMPLETE BLOOD COUNT W/ 2022-02-24 16:21:00 Adriane Esparza [facility] DIFFERENTIAL [facility] BASIC METABOLIC PANEL, 2022-02-24 16:21:00 Adriane Esparza [facility] CALCIUM TOTAL [facility] BILIRUBIN TOTAL 2022-02-24 16:21:00 Adriane Esparza [facility] ALANINE AMINOTRANSFERASE 2022-02-24 16:21:00 Adriane [facility] ASPARTATE AMINOTRANSFERASE 2022-02-24 16:21:00 Adriane [facility] MAGNESIUM LEVEL 2022-02-24 16:21:00 Beverly Adriane [facility] Results CBC 2022-02-24 16:21:00 Beverly Adriane [facility] MANUAL DIFFERENTIAL 2022-02-24 16:21:00 Adriane Esparza [facility] GLUCOSE LEVEL 2022-02-24 16:21:00 Beverly Dariane [facility] BLOOD UREA NITROGEN 2022-02-24 16:21:00 Adriane Esparza [facility] ELECTROLYTE PANEL 2022-02-24 16:21:00 Beverly [facility] SERUM CREATININE 2022-02-24 16:21:00 Beverly [facility] .GLOMERULAR FILTRATION 2022-02-24 16:21:00 Adriane [facility] CALCIUM LEVEL TOTAL 2022-02-24 16:21:00 Adri[facility] COMPLETE BLOOD COUNT W/ 2022-02-17 20:32:00 Adriane Esparza [facility] DIFFERENTIAL [facility] MAGNESIUM LEVEL 2022-02-17 20:32:00 Adriane Esparza [facility] COMPREHENSIVE METABOLIC 2022-02-17 20:32:00 Adriane Esparza [facility] PANEL [facility] TYPE AND SCREEN 2022-02-17 20:32:00 Adriane Esparza [facility] CONFIRM ABORH TYPE 2022-02-17 20:32:00 Adriane Esparza y [facility] Results CBC 2022-02-17 20:32:00 Adriane Esparza [facility] MANUAL DIFFERENTIAL 2022-02-17 20:32:00 Adriane Esparza [facility] GLUCOSE LEVEL 2022-02-17 20:32:00 Adriane Esparza [facility] BLOOD UREA NITROGEN 2022-02-17 20:32:00 Adriane Esparza [facility] ELECTROLYTE PANEL 2022-02-17 20:32:00 Beverly [facility] SERUM CREATININE 2022-02-17 20:32:00 Beverly Adriane [facility] .GLOMERULAR FILTRATION 2022-02-17 20:32:00 Adriane Esp[facility]za [facility] CALCIUM LEVEL TOTAL 2022-02-17 20:32:00 Adriane [facility]za [facility] ALBUMIN LEVEL 2022-02-17 20:32:00 Adriane Esparza [facility] ALKALINE PHOSPHATASE 2022-02-17 20:32:00 [facility] ALANINE AMINOTRANSFERASE 2022-02-17 20:32:00 Adriane Esparza [facility] ASPARTATE AMINOTRANSFERASE 2022-02-17 20:32:00 Adriane Esparza [facility] TOTAL PROTEIN 2022-02-17 20:32:00 Beverly [facility] FRACTIONATED BILIRUBIN 2022-02-17 20:32:00 Adriane [facility]za [facility] [place] [facility] ABORH 2022-02-17 20:32:00 Beverly [facility] ANTIBODY SCREEN 2022-02-17 20:32:00 Beverly [facility] CLOT EXPIRATION DATE 2022-02-17 20:32:00 Adriane Esparza [facility] TMP INTERPRETATION 2022-02-17 20:32:00 Adriane Esparza [facility] ANTIBODY SCREEN NEGATIVE MD Vargas [facility] PAIN MANAGEMENT 2022-02-17 19:36:26 Jacek Kimball [facility] CANCER ANTIGEN 125 2022-01-27 14:33:00 Nick Mccallum [facility] COMPLETE BLOOD COUNT W/ 2022-01-27 14:33:00 [facility] DIFFERENTIAL [facility] BASIC METABOLIC PANEL, 2022-01-27 14:33:00 Nick Mccallum [facility] CALCIUM TOTAL [facility] BILIRUBIN TOTAL 2022-01-27 14:33:00 Nick Mccallum [facility] ALANINE AMINOTRANSFERASE 2022-01-27 14:33:00 Nick Mccallum [facility] ASPARTATE AMINOTRANSFERASE 2022-01-27 14:33:00 [facility] MAGNESIUM LEVEL 2022-01-27 14:33:00 Nick Mccallum [facility] Results CBC 2022-01-27 14:33:00 Nick Mccallum [facility] MANUAL DIFFERENTIAL 2022-01-27 14:33:00 Nick Mccallum [facility] GLUCOSE LEVEL 2022-01-27 14:33:00 Nick Mccallum [place] [facility] BLOOD UREA NITROGEN 2022-01-27 14:33:00 Nick Mccallum [facility] ELECTROLYTE PANEL 2022-01-27 14:33:00 Nick Mccallum [facility] SERUM CREATININE 2022-01-27 14:33:00 Nick Mccallum [facility] .GLOMERULAR FILTRATION 2022-01-27 14:33:00 Nick Mccallum [facility] RATE [facility] CALCIUM LEVEL TOTAL 2022-01-27 14:33:00 Nick Mccallum [facility] CT CHEST ABDOMEN PELVIS W 2022-01-18 01:06:45 [facility]INE 2022-01-17 22:52:00 Adriane Esparza [place] [facility] CANCER ANTIGEN 125 2021-11-04 13:45:00 Nick Mccallum [facility] y of [facility] COMPLETE BLOOD COUNT W/ 2021-11-04 13:45:00 Nick Mccallum [facility] DIFFERENTIAL [facility] BASIC METABOLIC PANEL, 2021-11-04 13:45:00 Nick Mccallum [facility] CALCIUM TOTAL [facility] BILIRUBIN TOTAL 2021-11-04 13:45:00 Nick Mccallum o [facility] ALANINE AMINOTRANSFERASE 2021-11-04 13:45:00 [facility] ASPARTATE AMINOTRANSFERASE 2021-11-04 13:45:00 Nick [facility]cc[facility]um [facility] MAGNESIUM LEVEL 2021-11-04 13:45:00 Nick Mccallum [place] [facility] URINALYSIS WITH 2021-11-04 13:45:00 Nick Mccallum [facility] MICROSCOPIC IF INDICATED MD [facility] Results CBC 2021-11-04 13:45:00 Nick Mccallum [place] [facility] MANUAL DIFFERENTIAL 2021-11-04 13:45:00 Nick Mccallum [facility] ty [facility] GLUCOSE LEVEL 2021-11-04 13:45:00 Nick Mccallum [place] [facility] BLOOD UREA NITROGEN 2021-11-04 13:45:00 Nick Mccallum [facility] ELECTROLYTE PANEL 2021-11-04 13:45:00 Nick Mccallum [facility] SERUM CREATININE 2021-11-04 13:45:00 Nick Mccallum [facility] .GLOMERULAR FILTRATION 2021-11-04 13:45:00 Nick Mccallum [facility] [place] RATE [facility] CALCIUM LEVEL TOTAL 2021-11-04 13:45:00 Nick Mccallum [facility] URINALYSIS MICROSCOPIC 2021-11-04 13:45:00 Nick Mccallum [facility] CANCER ANTIGEN 125 2021-10-14 19:43:00 Nick Mccallum [facility] COMPLETE BLOOD COUNT W/ 2021-10-14 19:43:00 Nick Mccallum [facility] [place] DIFFERENTIAL [facility] BASIC METABOLIC PANEL, 2021-10-14 19:43:00 Nick Mccallum [facility] [place] CALCIUM TOTAL [facility] BILIRUBIN TOTAL 2021-10-14 19:43:00 Nick Mccallum [place] [facility] ALANINE AMINOTRANSFERASE 2021-10-14 19:43:00 Nick Mccallum Uni versity of [facility] ASPARTATE AMINOTRANSFERASE 2021-10-14 19:43:00 Nick Mccallum [facility] MAGNESIUM LEVEL 2021-10-14 19:43:00 Nick Mccallum [place] [facility] Results CBC 2021-10-14 19:43:00 Nick Mccallum [place] [facility] MANUAL DIFFERENTIAL 2021-10-14 19:43:00 Nick Mccallum [facility] ty [facility] GLUCOSE LEVEL 2021-10-14 19:43:00 Nick Mccallum [place] [facility] BLOOD UREA NITROGEN 2021-10-14 19:43:00 Nick Mccallum [facility] ELECTROLYTE PANEL 2021-10-14 19:43:00 Nick Mccallum [facility] SERUM CREATININE 2021-10-14 19:43:00 Nick Mccallum [facility] .GLOMERULAR FILTRATION 2021-10-14 19:43:00 Nick Mccallum [facility] [place] RATE [facility] CALCIUM LEVEL TOTAL 2021-10-14 19:43:00 Nick Mccallum [facility] CT CHEST ABDOMEN PELVIS W 2021-10-04 19:16:46 Nick Mccallum [facility] [place] CONTRAST [facility] CANCER ANTIGEN 125 2021-10-04 16:01:00 Nick Mccallum y of [facility] COMPLETE BLOOD COUNT W/ 2021-10-04 16:01:00 Nick Mccallum [facility] DIFFERENTIAL [facility] BASIC METABOLIC PANEL, 2021-10-04 16:01:00 Nick Mccallum [facility] [place] CALCIUM TOTAL [facility] BILIRUBIN TOTAL 2021-10-04 16:01:00 Nick Mccallum [place] [facility] ALANINE AMINOTRANSFERASE 2021-10-04 16:01:00 Nick Mccallum Uni versity [facility] ASPARTATE AMINOTRANSFERASE 2021-10-04 16:01:00 Nick [facility]cc[facility]um [facility] MAGNESIUM LEVEL 2021-10-04 16:01:00 Nick Mccallum [place] [facility] Results CBC 2021-10-04 16:01:00 Nick Mccallum [place] [facility] MANUAL DIFFERENTIAL 2021-10-04 16:01:00 Nick Mccallum [facility] GLUCOSE LEVEL 2021-10-04 16:01:00 Nick Mccallum [place] [facility] BLOOD UREA NITROGEN 2021-10-04 16:01:00 Nick Mccallum [facility] ELECTROLYTE PANEL 2021-10-04 16:01:00 Nick Mccallum [facility] SERUM CREATININE 2021-10-04 16:01:00 Nick Mccallum [facility] .GLOMERULAR FILTRATION 2021-10-04 16:01:00 Nick Mccallum [facility] RATE [facility] CALCIUM LEVEL TOTAL 2021-10-04 16:01:00 Nick Mccallum [facility] URINALYSIS WITH 2021-09-14 19:53:00 Nick Mccallum [place] MICROSCOPIC IF INDICATED MD [facility] URINALYSIS MICROSCOPIC 2021-09-14 19:53:00 Nick Mccallum [facility] .GLOMERULAR FILTRATION 2021-09-14 19:50:00 Nick Mccallum [facility] CALCIUM LEVEL TOTAL 2021-09-14 19:50:00 Nick Mccallum [facility] CANCER ANTIGEN 125 2021-09-14 19:50:00 Nick Mccallum [facility] COMPLETE BLOOD COUNT W/ 2021-09-14 19:50:00 Nick Mccallum [facility] DIFFERENTIAL [facility] BASIC METABOLIC PANEL, 2021-09-14 19:50:00 Nick Mccallum [facility] CALCIUM TOTAL [facility] BILIRUBIN TOTAL 2021-09-14 19:50:00 Nick Mccallum [place] [facility] ALANINE AMINOTRANSFERASE 2021-09-14 19:50:00 Nick [facility]ccallum [facility] ASPARTATE AMINOTRANSFERASE 2021-09-14 19:50:00 Nick [facility]ccallum [facility] MAGNESIUM LEVEL 2021-09-14 19:50:00 Nick Mccallum o f [facility] Results CBC 2021-09-14 19:50:00 Nick Mccallum [place] [facility] MANUAL DIFFERENTIAL 2021-09-14 19:50:00 Nick Mccallum [facility] GLUCOSE LEVEL 2021-09-14 19:50:00 Nick Mccallum [place] [facility] BLOOD UREA NITROGEN 2021-09-14 19:50:00 Nick Mccallum [facility] ELECTROLYTE PANEL 2021-09-14 19:50:00 Nick Mccallum [facility] SERUM CREATININE 2021-09-14 19:50:00 Nick Mccallum [facility] URINE CULTURE 2021-09-14 07:53:00 Alessio [facility] o f [facility] CANCER ANTIGEN 125 2021-08-24 15:43:00 Viraj Batres [facility] COMPLETE BLOOD COUNT W/ 2021-08-24 15:43:00 [facility] DI[facility] BASIC METABOLIC PANEL, 2021-08-24 15:43:00 [facility] CALCI[facility] TOTAL [facility] BILIRUBIN TOTAL 2021-08-24 15:43:00 Viraj Batres [facility] ALANINE AMINOTRANSFERASE 2021-08-24 15:43:00 Viraj Batres [facility] ASPARTATE AMINOTRANSFERASE 2021-08-24 15:43:00 Viraj Batres [facility] MAGNESIUM LEVEL 2021-08-24 15:43:00 Viraj Batres [facility] Results CBC 2021-08-24 15:43:00 Viraj Batres [facility] MANUAL DIFFERENTIAL 2021-08-24 15:43:00 Viraj [facility]res [facility] GLUCOSE LEVEL 2021-08-24 15:43:00 Viraj Batres [facility] BLOOD UREA NITROGEN 2021-08-24 15:43:00 Viraj Batres [facility] ELECTROLYTE PANEL 2021-08-24 15:43:00 Viraj Batres [facility] SERUM CREATININE 2021-08-24 15:43:00 Viraj Batres [facility] .GLOMERULAR FILTRATION 2021-08-24 15:43:00 Viraj Batres [facility] [place] RATE [facility] CALCIUM LEVEL TOTAL 2021-08-24 15:43:00 Viraj Batres [facility] URINALYSIS WITH 2021-08-24 15:00:00 Viraj Batres [facility] MICROSCOPIC IF INDICATED MD [facility] URINALYSIS MICROSCOPIC 2021-08-24 15:00:00 Viraj Batres [facility] US UPPER EXTREMITY LIMITED 2021-08-15 19:55:33 Viraj Batres [facility] LEFT [facility] PAIN MANAGEMENT 2021-08-03 20:08:00 Andrea, [facility] FLUOROSCOPY [facility] URINE CULTURE 2021-07-29 20:28:00 [facility] URINALYSIS WITH 2021-07-29 20:28:00 [facility] MICROSCOPIC IF INDICATED MD [facility] URINALYSIS MICROSCOPIC 2021-07-29 20:28:00 [facility] CANCER ANTIGEN 125 2021-07-29 15:58:00 Viraj Batres [facility] COMPLETE BLOOD COUNT W/ 2021-07-29 15:58:00 Viraj [facility]res [facility] DIFFERENTIAL [facility] BASIC METABOLIC PANEL, 2021-07-29 15:58:00 Viraj [facility] CALCIUM TOTAL [facility] BILIRUBIN TOTAL 2021-07-29 15:58:00 Viraj Batres [facility] ALANINE AMINOTRANSFERASE 2021-07-29 15:58:00 Viraj Batres [facility] ASPARTATE AMINOTRANSFERASE 2021-07-29 15:58:00 Viraj Batres [facility] MAGNESIUM LEVEL 2021-07-29 15:58:00 Viraj Batres [facility] URINALYSIS WITH 2021-07-29 15:58:00 Viraj Batres [facility] MICROSCOPIC IF INDICATED MD Vargas [facility] Results CBC 2021-07-29 15:58:00 Viraj Batres [facility] MANUAL DIFFERENTIAL 2021-07-29 15:58:00 Viraj Batres [facility] GLUCOSE LEVEL 2021-07-29 15:58:00 Viraj Batres [facility] BLOOD UREA NITROGEN 2021-07-29 15:58:00 Viraj Batres [facility] ELECTROLYTE PANEL 2021-07-29 15:58:00 Viraj Batres [facility] SERUM CREATININE 2021-07-29 15:58:00 Viraj Batres [facility] .GLOMERULAR FILTRATION 2021-07-29 15:58:00 Viraj Batres [facility] [place] RATE [facility] CALCIUM LEVEL TOTAL 2021-07-29 15:58:00 Viraj Batres [facility] URINALYSIS MICROSCOPIC 2021-07-29 15:58:00 Viraj Batres Un iversity of [facility] CT CHEST ABDOMEN PELVIS W 2021-07-27 19:59:34 Nick Mccallum Un iversity of [place] CONTRAST [facility] POC CREATININE 2021-07-27 19:09:00 Nick Mccallum [place] [facility] URINE CULTURE 2021-07-08 15:43:14 Nick Mccallum [place] [facility] CANCER ANTIGEN 125 2021-07-08 15:21:00 Nick Mccallum [facility] COMPLETE BLOOD COUNT W/ 2021-07-08 15:21:00 Nick [facility]um [facility] DIFFERENTIAL [facility] BASIC METABOLIC PANEL, 2021-07-08 15:21:00 Nick Mccallum Andie [facility] CALCIUM TOTAL [facility] BILIRUBIN TOTAL 2021-07-08 15:21:00 Al[facility]io [facility] o [facility] ALANINE AMINOTRANSFERASE 2021-07-08 15:21:00 Nick Mccallum [facility] ASPARTATE AMINOTRANSFERASE 2021-07-08 15:21:00 Nick Mccallum [facility] MAGNESIUM LEVEL 2021-07-08 15:21:00 Nick Mccallum [place] [facility] Results CBC 2021-07-08 15:21:00 Nick Mccallum [place] [facility] MANUAL DIFFERENTIAL 2021-07-08 15:21:00 Nick Mccallum [facility] GLUCOSE LEVEL 2021-07-08 15:21:00 Alessio [facility] o [facility] BLOOD UREA NITROGEN 2021-07-08 15:21:00 Nick Mccallum [facility] ELECTROLYTE PANEL 2021-07-08 15:21:00 Nick Mccallum [facility] SERUM CREATININE 2021-07-08 15:21:00 Nick Mccallum [facility] .GLOMERULAR FILTRATION 2021-07-08 15:21:00 Nick Mccallum [facility] [place] RATE [facility] CALCIUM LEVEL TOTAL 2021-07-08 15:21:00 Nick Mccallum [facility] URINALYSIS WITH 2021-06-17 17:20:00 Adriane Esparza [facility] MICROSCOPIC IF INDICATED MD [facility] URINALYSIS MICROSCOPIC 2021-06-17 17:20:00 Adriane Esparza [facility] CANCER ANTIGEN 125 2021-06-17 17:03:00 Adriane Esparza y [facility] COMPLETE BLOOD COUNT W/ 2021-06-17 17:03:00 Adriane Esparza [facility] DIFFERENTIAL [facility] BASIC METABOLIC PANEL, 2021-06-17 17:03:00 Adriane Esparza [facility] CALCIUM TOTAL [facility] BILIRUBIN TOTAL 2021-06-17 17:03:00 Adriane Esparza [facility] ALANINE AMINOTRANSFERASE 2021-06-17 17:03:[address] [facility] ASPARTATE AMINOTRANSFERASE 2021-06-17 17:03:00 Adriane Esparza [facility] MAGNESIUM LEVEL 2021-06-17 17:03:00 Beverly [facility] Results CBC 2021-06-17 17:03:00 Beverly Adriane [facility] MANUAL DIFFERENTIAL 2021-06-17 17:03:00 Adriane Esparza [facility] GLUCOSE LEVEL 2021-06-17 17:03:00 Beverly [facility] BLOOD UREA NITROGEN 2021-06-17 17:03:00 Adriane Esparza [facility] ELECTROLYTE PANEL 2021-06-17 17:03:00 Beverly [facility] SERUM CREATININE 2021-06-17 17:03:00 Beverly [facility] .GLOMERULAR FILTRATION 2021-06-17 17:03:00 Adriane Esparza [facility] RATE [facility] CALCIUM LEVEL TOTAL 2021-06-17 17:03:00 Adriane Esparza [facility] URINE CULTURE 2021-05-13 14:16:00 Alessio [facility] CANCER ANTIGEN 125 2021-05-13 13:33:00 Viraj Batres [facility] COMPLETE BLOOD COUNT W/ 2021-05-13 13:33:00 Viraj Batres [facility] DIFFERENTIAL [facility] BASIC METABOLIC PANEL, 2021-05-13 13:33:00 [facility] CALCI[facility]OTAL [facility] BILIRUBIN TOTAL 2021-05-13 13:33:00 Viraj Batres [facility] ALANINE AMINOTRANSFERASE 2021-05-13 13:33:00 Viraj Batres [facility] ASPARTATE AMINOTRANSFERASE 2021-05-13 13:33:00 Viraj Batres [facility] MAGNESIUM LEVEL 2021-05-13 13:33:00 Viraj Batres [facility] URINALYSIS WITH 2021-05-13 13:33:00 Viraj Batres [facility] MICROSCOPIC IF INDICATED MD [facility] Results CBC 2021-05-13 13:33:00 Viraj Batres [facility] MANUAL DIFFERENTIAL 2021-05-13 13:33:00 Viraj [facility]res [facility] GLUCOSE LEVEL 2021-05-13 13:33:00 Viraj Batres [facility] BLOOD UREA NITROGEN 2021-05-13 13:33:00 Viraj Batres [facility] ELECTROLYTE PANEL 2021-05-13 13:33:00 Viraj Batres [facility] SERUM CREATININE 2021-05-13 13:33:00 Viraj Batres [facility] .GLOMERULAR FILTRATION 2021-05-13 13:33:00 Viraj Batres [facility] [place] RATE [facility] CALCIUM LEVEL TOTAL 2021-05-13 13:33:00 Viraj Batres [facility] URINALYSIS MICROSCOPIC 2021-05-13 13:33:00 [facility] LUMBAR SPINE WO 2021-05-07 12:55:00 Jacek Kimball [facility] CONTRAST [facility] CANCER ANTIGEN 125 2021-04-22 15:40:00 Nick Mccallum [facility] COMPLETE BLOOD COUNT W/ 2021-04-22 15:40:00 Nick Mccallum [facility] [place] DIFFERENTIAL [facility] BASIC METABOLIC PANEL, 2021-04-22 15:40:00 Nick Mccallum [facility] CALCIUM TOTAL [facility] BILIRUBIN TOTAL 2021-04-22 15:40:00 Nick Mccallum [place] [facility] ALANINE AMINOTRANSFERASE 2021-04-22 15:40:00 Nick Mccallum [facility] ASPARTATE AMINOTRANSFERASE 2021-04-22 15:40:00 [facility] MAGNESIUM LEVEL 2021-04-22 15:40:00 Nick Mccallum [place] [facility] GLUCOSE LEVEL 2021-04-22 15:40:00 Nick Mccallum [place] [facility] BLOOD UREA NITROGEN 2021-04-22 15:40:00 Nick Mccallum [facility] ELECTROLYTE PANEL 2021-04-22 15:40:00 Nick Mccallum [facility] SERUM CREATININE 2021-04-22 15:40:00 Nick Mccallum [facility] .GLOMERULAR FILTRATION 2021-04-22 15:40:00 Nick Mccallum [facility] RATE [facility] CALCIUM LEVEL TOTAL 2021-04-22 15:40:00 Nick Mccallum [facility] Results CBC 2021-04-22 15:40:00 Nick Mccallum o f [facility] MANUAL DIFFERENTIAL 2021-04-22 15:40:00 Nick Mccallum [facility] URINALYSIS WITH 2021-04-22 15:16:00 Nick Mccallum [place] MICROSCOPIC IF INDICATED MD Vargas [facility] URINALYSIS MICROSCOPIC 2021-04-22 15:16:00 Nick Mccallum [facility] CT CHEST ABDOMEN PELVIS W 2021-04-20 17:48:00 Nick Mccallum [facility] [place] CONTRAST [facility] POC CREATININE 2021-04-20 16:29:00 Nick Mccallum [place] [facility] CANCER ANTIGEN 125 2021-03-25 14:32:00 Nick Mccallum [facility] COMPLETE BLOOD COUNT W/ 2021-03-25 14:32:00 Nick Mccallum [facility] DIFFERENTIAL [facility] BASIC METABOLIC PANEL, 2021-03-25 14:32:00 Nick Mccallum [facility] [place] CALCIUM TOTAL [facility] BILIRUBIN TOTAL 2021-03-25 14:32:00 Nick Mccallum [place] [facility] ALANINE AMINOTRANSFERASE 2021-03-25 14:32:00 Nick [facility]ccallum [facility] ASPARTATE AMINOTRANSFERASE 2021-03-25 14:32:00 Nick Mccallum [facility] MAGNESIUM LEVEL 2021-03-25 14:32:00 Nick Mccallum [place] [facility] Results CBC 2021-03-25 14:32:00 Nick Mccallum [place] [facility] MANUAL DIFFERENTIAL 2021-03-25 14:32:00 Nick Mccallum [facility] GLUCOSE LEVEL 2021-03-25 14:32:00 Nick Mccallum [place] [facility] BLOOD UREA NITROGEN 2021-03-25 14:32:00 Nick Mccallum [facility] ELECTROLYTE PANEL 2021-03-25 14:32:00 Alessio [facility] SERUM CREATININE 2021-03-25 14:32:00 Alessio [facility] .GLOMERULAR FILTRATION 2021-03-25 14:32:00 Nick Mccallum [facility] [place] RATE [facility] CALCIUM LEVEL TOTAL 2021-03-25 14:32:00 Nick Mccallum [facility] URINALYSIS WITH 2021-03-04 13:29:00 Beverly [facility] MICROSCOPIC IF INDICATED MD [facility] CANCER ANTIGEN 125 2021-03-04 13:29:00 Adriane Esparza [facility] COMPLETE BLOOD COUNT W/ 2021-03-04 13:29:00 Adriane Esparza [facility] DIFFERENTIAL [facility] BASIC METABOLIC PANEL, 2021-03-04 13:29:00 Adriane Esparza [facility] CALCIUM TOTAL [facility] BILIRUBIN TOTAL 2021-03-04 13:29:00 Adriane Esparza [place] [facility] ALANINE AMINOTRANSFERASE 2021-03-04 13:29:00 Adriane [facility] ASPARTATE AMINOTRANSFERASE 2021-03-04 13:29:00 Adriane Esparza [facility] MAGNESIUM LEVEL 2021-03-04 13:29:00 Adriane Esparza [place] [facility] Results CBC 2021-03-04 13:29:00 Adriane Esparza [facility] MANUAL DIFFERENTIAL 2021-03-04 13:29:00 Adriane Esparza [facility] GLUCOSE LEVEL 2021-03-04 13:29:00 Adriane Esparza [facility] BLOOD UREA NITROGEN 2021-03-04 13:29:00 Adriane Esparza [facility] ELECTROLYTE PANEL 2021-03-04 13:29:00 Adriane Esparza [facility] SERUM CREATININE 2021-03-04 13:29:00 Adriane Esparza [facility] .GLOMERULAR FILTRATION 2021-03-04 13:29:00 Adriane Esparza [facility] RATE [facility] CALCIUM LEVEL TOTAL 2021-03-04 13:29:00 Adriane Esparza [facility] URINALYSIS MICROSCOPIC 2021-03-04 13:29:00 Adriane Esparza [facility] URINE CULTURE 2021-02-25 15:41:00 Alessio [facility] CANCER ANTIGEN 125 2021-02-25 14:48:00 [facility] COMPLETE BLOOD COUNT W/ 2021-02-25 14:48:00 Adriane [facility]za [facility] DIFFERENTIAL [facility] BASIC METABOLIC PANEL, 2021-02-25 14:48:00 Adriane Esparza [facility] CALCIUM TOTAL [facility] BILIRUBIN TOTAL 2021-02-25 14:48:00 Adriane Esparza [place] [facility] ALANINE AMINOTRANSFERASE 2021-02-25 14:48:00 Adriane [facility] ASPARTATE AMINOTRANSFERASE 2021-02-25 14:48:00 Adriane Esparza [facility] MAGNESIUM LEVEL 2021-02-25 14:48:00 Adraine Esparza [facility] Results CBC 2021-02-25 14:48:00 Adriane Esparza [facility] MANUAL DIFFERENTIAL 2021-02-25 14:48:00 Adriane Esparza [facility] GLUCOSE LEVEL 2021-02-25 14:48:00 Adriane Esparza [facility] BLOOD UREA NITROGEN 2021-02-25 14:48:00 Adriane Esparza [facility] ELECTROLYTE PANEL 2021-02-25 14:48:00 Beverly [facility] SERUM CREATININE 2021-02-25 14:48:00 Beverly Adriane [facility] .GLOMERULAR FILTRATION 2021-02-25 14:48:00 Adriane Esparza [facility] RATE [facility] CALCIUM LEVEL TOTAL 2021-02-25 14:48:00 Adriane [facility]arza [facility] URINALYSIS WITH 2021-02-25 13:41:00 [facility] MICROSCOPIC IF INDICATED MD Vargas ishmael [facility] URINALYSIS MICROSCOPIC 2021-02-25 13:41:00 Adriane Esparza [facility] URINALYSIS WITH 2021-02-18 13:23:00 [facility] MICROSCOPIC IF INDICATED MD Vargas ishmael [facility] Center CANCER ANTIGEN 125 2021-02-18 13:23:00 Unke, Adriane [facility] COMPLETE BLOOD COUNT W/ 2021-02-18 13:23:00 [facility] BASIC METABOLIC PANEL, 2021-02-18 13:23:00 Adriane Esparza [facility] CALCIUM TOTAL [facility] BILIRUBIN TOTAL 2021-02-18 13:23:00 Adriane Esparza Fertile o [facility] ALANINE AMINOTRANSFERASE 2021-02-18 13:23:00 Adriane Esparza [facility] ASPARTATE AMINOTRANSFERASE 2021-02-18 13:23:00 [facility] 2021-02-18 13:23:00 Adriane Esparza [facility] Results CBC 2021-02-18 13:23:00 Adriane Esparza [facility] MANUAL DIFFERENTIAL 2021-02-18 13:23:00 Adriane Esparza [facility] GLUCOSE LEVEL 2021-02-18 13:23:00 Adriane Esparza [facility] BLOOD UREA NITROGEN 2021-02-18 13:23:00 [facility] ELECTROLYTE PANEL 2021-02-18 13:23:00 Adriane Esparza [facility] SERUM CREATININE 2021-02-18 13:23:00 Beverly Adriane [facility] .GLOMERULAR FILTRATION 2021-02-18 13:23:00 Adriane Esparza [facility] RATE [facility] CALCIUM LEVEL TOTAL 2021-02-18 13:23:00 Adriane Esparza [facility] URINALYSIS MICROSCOPIC 2021-02-18 13:23:00 Adriane Esparza [facility] Plan of Care Planned Activity Planned Date Details Comments Source Future Scheduled 2022-06-06 COVID-19 Vaccination [facility] Test 07:25:25 (2 - Pfizer risk [facility] Cancer series) [code = Center COVID-19 Vaccination (2 - Pfizer risk series)] Future Scheduled 2022-04-[address] [facility] Test 00:00:00 (#1) [code = Medical Center INFLUENZA VACCINE (#1)] Future Scheduled 2022-02-10 COVID-19 Vaccination [facility] Test 06:51:44 (2 - Pfizer risk MD Isael Cancer series) [code = Center COVID-19 Vaccination (2 - Pfizer risk series)] Future Scheduled 2021-08-[address] [facility] 00:00:00 WELLNESS (YEAR 2 or Medical Center FIRST YEAR if no IPPE) [code = MEDICARE ANNUAL WELLNESS (YEAR 2 or FIRST YEAR if no IPPE)] Future Scheduled 2021-08-[address] [facility] Test 00:00:00 (12+) [code = Medical Center DEPRESSION SCREENING (12+)] Future Scheduled 2021-08-20 FALLS RISK SCREENING [facility] Test 00:00:00 [code = FALLS RISK Medical C enter SCREENING] Future Scheduled 2000 PNEUMOCOCCAL 65+ YRS [facility] Test 00:00:00 (1 - PCV) [code = Medical Ce nter PNEUMOCOCCAL 65+ YRS (1 - PCV)] Future Scheduled 1985 SHINGLES VACCINES ([address] [facility] Test 00:00:00 of 2) [code = Medical Center SHINGLES VACCINES (1 of 2)] Future Scheduled 1954 DTAP/TDAP/TD VACCINES [facility] Test 00:00:00 (1 - Tdap) [code = Medical C enter DTAP/TDAP/TD VACCINES (1 - Tdap)] Future Scheduled 1936-03-15 COVID-19 VACCINE (#1) [facility] 00:00:00 [code = COVID-[address] VACCINE (#1)] Encounters Start End Encounter Admission Attending Care Care Encounter Source Date/Time Date/Time Type Type Clinicians Facility Department ID 2020-11-23 Outpatient SYSTEM, [facility] [id number] 10:39:51 PROVIDER Kevin o n 2020-10-16 Outpatient SYSTEM, [facility] [id number] 13:32:25 PROVIDER Kevin o n 2020-09-14 Outpatient SYSTEM, [facility] [id number] 16:02:01 PROVIDER Kevin o n 2022-06-02 2022-06-02 Office Viraj Batres 1.2.840.1 [id number] [facility] 15:00:00 15:34:24 Visit Leana Morales 36265.1.1 ity of 3.412.2.7 [place] .3.396893 [facility]-02 2022-06-02 Outpatient CARLOS BATRES [facility] MDA [id number] 14:54:37 15:34:24 VIRAJ broussard 2022-06-02 2022-06-02 Outpatient CARLOS BATRES [facility] MDA [id number] 14:09:46 14:48:27 VIRAJ broussard 2022-06-02 2022-06-02 Clinical Viraj Batres 1.2.840.1 [id number] [facility] 14:00:00 14:48:27 Support Alexus Dupree 94966.1.1 ity of 3.412.2.7 [place] .3.432111 MD Blanchard8 [facility] 2022-06-02 2022-06-02 Outpatient CARLOS BATRES [facility] MDA [id number] [place] 14:10:00 14:47:00 VIRAJ broussard 2022-06-02 2022-06-02 Travel 1.2.840.1 1.2.952.685 [id number] [id number] Univers 00:00:00 00:00:00 93260.1.1 350.1.13.41 ity of 3.412.2.7 [place]3.698 [place].10[place] 084.8 MD Blanchard8 [facility] 2022-05-12 2022-05-12 Office Adriane Esparza 1.2.840.1 [id number] [facility] 14:30:00 15:21:31 Visit Leana Morales 23782.1.1 ity of 3.412.2.7 [place] .3.442242 MD Blanchard8 Susan broussard [facility] 2022-05-12 2022-05-12 Outpatient ADRIANE CARPENTER [facility] [id number] 14:25:00 15:21:31 Kevinjuan broussard 2022-05-12 2022-05-12 Outpatient ADRIANE CARPENTER [facility] MDA [id number] 13:48:48 14:41:28 Kevinjuan broussard 2022-05-12 2022-05-12 Outpatient CARLOS BATRES [facility] MDA [id number] 13:48:04 14:16:14 VIRAJ broussard 2022-05-12 2022-05-12 Clinical Viraj Batres 1.2.840.1 [id number] [facility] 13:30:00 14:16:14 Support Tammie Hernández 79482.1.1 ity of 3.412.2.7 [place] .3.432145 MD Blanchard8 [facility] 2022-05-12 2022-05-12 Travel 1.2.840.1 1.2.286.079 [id number] [facility] 00:00:00 00:00:00 68491.1.1 350.1.13.41 ity of 3.412.2.7 [place].698 [place] .3.495[place] 084.8 .8 [facility] 2022-05-12 2022-05-12 Orders Carmen, 1.2.840.1 [id number] Univers 00:00:00 00:00:00 Only Leana 87713.1.1 ity of 3.412.2.7 [place] .3.791430 MD Zelaya [facility] 2022-05-12 2022-05-12 Jamison Batres, 1.2.840.1 [id number] Univers 00:00:00 00:00:00 Only Viraj Perez 82014.1.1 it y of 3.412.2.7 [place] .3.885292 MD Zelaya [facility] 2022-04-21 2022-04-21 Outpatient CARLOS WANGBATRES [facility] MDA [id number] 12:49:53 14:54:12 VIRAJ broussard 2022-04-21 2022-04-21 Infusion Viraj Batres 1.2.840.1 [id number] [facility] 11:30:00 14:54:12 Tammie Hernández 67893.1.1 ity of 3.412.2.7 [place] .3.437846 MD Blanchard8 [facility] 2022-04-21 2022-04-21 Outpatient CARLOS BATRES MDA MDA [id number] 11:11:33 13:23:05 VIRAJ broussard 2022-04-21 2022-04-21 Office Deborah, 1.2.840.1 [id number] [facility] 11:00:00 13:23:05 Visit Viraj Perez 17390.1.1 it y of 3.412.2.7 [place] .3.954214 MD Blanchard8 [facility] 2022-04-21 2022-04-21 Outpatient ADRIANE CARPENTER [facility] MDA [id number] 12:44:03 12:47:36 [facility] 2022-04-21 2022-04-21 Orders Francois, 1.2.840.1 [id number] Univers 00:00:00 00:00:00 Only Jacek Leonard 51216.1.1 it y of 3.412.2.7 [place] .3.168070 MD Zelaya [facility] 2022-04-21 2022-04-21 Travel 1.2.840.1 1.2.524.484 1522 [id number] Univers 00:00:00 00:00:00 05004.1.1 350.1.13.41 ity of 3.412.2.7 [place].3.698 [place]3.618[place] 08Dixon.8 MD Blanchard8 [facility] 2022-04-21 2022-04-21 Refill Francois, 1.2.840.1 [id number] Univers 00:00:00 00:00:00 Jacek Leonard 45385.1.1 it y of 3.412.2.7 [place] .3.593354 [facility] 2022-04-20 2022-04-20 [facility], 1.2.840.1 [id number] [facility] 18:05:00 23:59:00 Encounter Zoe D 16870.1.1 it y of 3.412.2.7 [place] .3.470215 .8 [facility] 2022-04-20 2022-04-20 Outpatient CARLOS ESCOBAR [facility] [id number] 18:05:00 23:59:00 ZOE Kevin o bobo 2022-04-20 2022-04-20 [facility] Viraj Batres 1.2.840.1 [id number] [facility] 17:19:29 18:04:00 Encounter Rena Levi 76027.1.1 ity of 3.412.2.7 [place] .3.143247 MD Blanchard8 [facility] 2022-04-20 2022-04-20 Outpatient CARLOS BATRES MDA [facility] [id number] 17:19:29 18:04:00 VIRAJ broussard 2022-04-20 2022-04-20 [facility], 1.2.840.1 [id number] [facility] 17:06:58 17:18:00 Encounter Zoe D 13593.1.1 it y of 3.412.2.7 [place] .3.744279 MD Blanchard8 [facility] 2022-04-20 2022-04-20 Outpatient CARLOS ESCOBAR [facility] [id number] 17:06:58 17:18:00 ZOE Kevin o n 2022-04-20 2022-04-20 Travel 1.2.840.1 1.2.861.792 7325 [id number] [facility] 00:00:00 00:00:00 23920.1.1 350.1.13.41 ity of 3.412.2.7 [place].698 [place].021311 084.8 .Missy [facility] 2022-03-24 2022-03-24 Infusion Viraj Batres 1.2.840.1 1020 [id number] [facility] 15:15:00 18:32:43 Monica Andrews C 26200.1.1 ity of 3.412.2.7 [place] .3.405146 .8 [facility] 2022-03-24 2022-03-24 Outpatient CARLOS BATRES [facility] MDA [id number] 14:57:03 18:32:43 VIRAJ broussard 2022-03-24 2022-03-24 Outpatient CARLOS ESCOBAR [facility] MDA [id number] 15:56:20 16:14:06 ZOE broussard 2022-03-24 2022-03-24 Office Adriane Esparza 1.2.840.1 [id number] [facility] 14:30:00 15:00:49 Visit 50741.1.1 ity of 3.412.2.7 [place] .3.947577 MD Blanchard8 Kevin bobo [facility] 2022-03-24 2022-03-24 Outpatient CARLOS MITCHELLADRIANE OROURKE [facility] MDA [id number] 14:14:25 15:00:49 Kevin broussard 2022-03-24 2022-03-24 Outpatient CARLOS BATRES [facility] MDA [id number] 13:48:31 14:48:08 VIRAJ broussard 2022-03-24 2022-03-24 Outpatient CARLOS BATRES [facility] MDA [id number] 13:48:07 14:15:06 VIRAJ broussard 2022-03-24 2022-03-24 Petey Batres, 1.2.840.1 [id number] [facility] 13:30:00 14:15:06 Support Viraj Perez 38865.1.1 it y of 3.412.2.7 [place] .3.041277 MD Blancahrd8 Susan broussard [facility] 2022-03-24 2022-03-24 Jamison Batres 1.2.840.1 [id number] [facility] 00:00:00 00:00:00 Only Viraj Perez 20907.1.1 it y of 3.412.2.7 [place] .3.623245 MD Blanchard8 [facility] 2022-03-24 2022-03-24 [facility] 1.2.840.1 1.2.132.426 [id number] [id number] [facility] 00:00:00 00:00:00 63998.1.1 350.1.13.41 ity of 3.412.2.7 [place].3.698 [place] .3.923301 084.8 .8 [facility] 2022-02-24 2022-02-24 Infusion Adriane Esparza 1.2.840.1 [id number] [facility] 13:00:00 16:24:12 [place] Crowley 89853.1.1 ity of 3.412.2.7 [place] .3.670008 .8 [facility] 2022-02-24 2022-02-24 Outpatient CARLOS MITCHELLADRIANE OROURKE [facility] MDA [id number] 12:50:02 16:24:12 Kevin broussard 2022-02-24 2022-02-24 Outpatient CARLOS BATRES MDA MDA [id number] 11:37:46 12:52:27 VIRAJ broussard 2022-02-24 2022-02-24 Office Viraj Batres 1.2.840.1 [id number] [facility] 11:30:00 12:52:27 Visit Adriane Esparza 82432.1.1 ity of 3.412.2.7 [place] .3.932882 MD Blanchard8 [facility] 2022-02-24 2022-02-24 Outpatient CARLOS MITCHELLADRIANE OROURKE [facility] MDA [id number] 11:15:33 12:10:32 Kevin broussard 2022-02-24 2022-02-24 Outpatient CARLOS BATRES MDA MDA [id number] 11:09:47 11:32:28 VIRAJ broussard 2022-02-24 2022-02-24 Clinical Blaise Batres.2.840.1 [id number] [facility] 11:00:00 11:32:28 Support Viraj Perez 04186.1.1 it y of 3.412.2.7 [place] .3.854132 MD Zelaya [facility] 2022-02-24 2022-02-24 Jamison Batres, 1.2.840.1 [id number] Univers 00:00:00 00:00:00 Only Viraj Perez 48464.1.1 it y of 3.412.2.7 [place] .3.307203 .8 [facility] 2022-02-24 2022-02-24 Travel 1.2.840.1 1.2.222.140 0883 [id number] Univers 00:00:00 00:00:00 97132.1.1 350.1.13.41 ity of 3.412.2.7 [place].3.698 [place] .3.081911 084.8 MD Zelaya [facility] 2022-02-24 2022-02-24 Jamison Batres, 1.2.840.1 [id number] Univers 00:00:00 00:00:00 Only Viraj Perez 08374.1.1 it y of 3.412.2.7 [place] .3.259782 MD Blanchard8 [facility] 2022-02-22 2022-02-22 Cortney Kimball, 1.2.840.1 [id number] Univers 00:00:00 00:00:00 Jacek Leonard 88790.1.1 it y of 3.412.2.7 [place] .3.958065 MD Zelaya [facility] 2022-02-17 2022-02-17 Petey Batres, 1.2.840.1 [id number] Univers 16:30:00 17:00:00 Support iVraj Perez 70636.1.1 it y of 3.412.2.7 [place] .3.295261 MD Zelaya [facility] 2022-02-17 2022-02-17 Outpatient ADRIANE CARPENTER MDA MDA [id number] 15:22:31 15:45:08 [facility] 2022-02-17 2022-02-17 Outpatient CARLOS KIMBALL MDA MDA [id number] 15:26:49 15:26:49 JACEK broussard 2022-02-17 2022-02-17 Outpatient CARLOS BATRES [facility] [id number] 15:26:08 15:26:08 VIRAJ broussard 2022-02-17 2022-02-17 Procedure Francois, 1.2.840.1 [id number] Univers 14:00:00 15:00:00 visit Jacek Leonard 05275.1.1 it y of 3.412.2.7 [place] .3.239769 MD Blanchard8 [facility] 2022-02-17 2022-02-17 Outpatient CARLOS KIMBALLAIMEE [facility] [id number] 14:36:26 14:36:26 JACEK broussard 2022-02-17 2022-02-17 Orders Adriane Esparza 1.2.840.1 [id number] Univers 00:00:00 00:00:00 Only 26479.1.1 ity of 3.412.2.7 [place] .3.170023 MD Blanchard8 [facility] 2022-02-17 2022-02-17 Telephone Teri, 1.2.840.1 [id number] Univers 00:00:00 00:00:00 November 74183.1.1 ity of 3.412.2.7 [place] .3.948540 MD Blanchard8 [facility] 2022-02-17 2022-02-17 Travel 1.2.840.1 1.2.648.924 [id number] [id number] Univers 00:00:00 00:00:00 15648.1.1 350.1.13.41 ity of 3.412.2.7 [place]7.3.698 [place] .3.278077 084.8 MD Blanchard8 [facility] 2022-02-01 2022-02-01 Telephone Marah, 1.2.840.1 [id number] Univers 00:00:00 00:00:00 Mechedecember 06822.1.1 it y of 3.412.2.7 [place] .3.312654 .8 [facility] 2022-02-01 2022-02-01 Telephone Marah, 1.2.840.1 [id number] Univers 00:00:00 00:00:00 Meche Newman 80131.1.1 it y of 3.412.2.7 [place] .3.917573 .8 [facility] 2022-01-27 2022-01-27 Infusion Nick Mccallum 1.2.840.1 [id number] Univers 13:00:00 15:40:52 Hazel Lewis 99926.1.1 ity of 3.412.2.7 [place] .3.770119 MD Blanchard8 [facility] 2022-01-27 2022-01-27 Infusion Nick Mccallum 1.2.840.1 [id number] Univers 13:00:00 15:40:52 Hazel Lewis 00845.1.1 ity of 3.412.2.7 [place] .3.492029 .8 [facility] 2022-01-27 2022-01-27 Office Deborah, 1.2.840.1 [id number] Univers 11:30:00 12:00:00 Visit Viraj Perez 57185.1.1 it y of 3.412.2.7 [place] .3Lo047893 MD Blanchard8 [facility] 2022-01-27 2022-01-27 Office Deborah, 1.2.840.1 [id number] Univers 11:30:00 12:00:00 Visit Viraj Perez 71764.1.1 it y of 3.412.2.7 [place] .3Lo458237 MD Blanchard8 [facility] 2022-01-27 2022-01-27 Office Francois, 1.2.840.1 [id number] Univers 10:00:00 11:14:19 Visit Jacek Leonard 32390.1.1 it y of 3.412.2.7 [place] .3Lo232094 MD BlanchardMissy [facility] 2022-01-27 2022-01-27 Office Francois, 1.2.840.1 [id number] Univers 10:00:00 11:14:19 Visit Jacek Leonard 40027.1.1 it y of 3.412.2.7 [place] .3.722471 MD Blanchard8 [facility] 2022-01-27 2022-01-27 Clinical Deborah, 1.2.840.1 [id number] [id number] Univers 09:00:00 09:38:27 Support Viraj Perez 59732.1.1 it y of 3.412.2.7 [place] .3.835938 MD Blanchard8 [facility] 2022-01-27 2022-01-27 Clinical Deborah, 1.2.840.1 [id number] [id number] Univers 09:00:00 09:38:27 Support Viraj Perez 41627.1.1 it y of 3.412.2.7 [place] .3.424110 MD Zelaya [facility] 2022-01-27 2022-01-27 Outpatient CARLOS MCCALLUM MDA [facility] [id number] 09:32:53 09:37:[address] [facility] 2022-01-27 2022-01-27 Travel 1.2.840.1 1.2.168.061 5197 [id number] Univers 00:00:00 00:00:00 94374.1.1 350.1.13.41 ity of 3.412.2.7 [place]7.3.698 [place]3.234072 084.8 MD Zelaya [facility] 2022-01-27 2022-01-27 Travel 1.2.840.1 1.2.245.156 7184 [id number] Univers 00:00:00 00:00:00 95973.1.1 350.1.13.41 ity of 3.412.2.7 [place]7.3.698 [place] .3.299627 084Lo8 MD Zelaya [facility] 2022-01-26 2022-01-26 Orders Deborah, 1.2.840.1 [id number] Univers 00:00:00 00:00:00 Only Viraj Perez 30715.1.1 it y of 3.412.2.7 [place] .3.548197 MD Zelaya [facility] 2022-01-26 2022-01-26 Orders Deborah, 1.2.840.1 [id number] Univers 00:00:00 00:00:00 Only Viraj Perez 17643.1.1 it y of 3.412.2.7 [place] .3.683329 MD Zelaya [facility] 2022-01-24 2022-01-24 Orders Alessio 1.2.840.1 [id number] Univers 00:00:00 00:00:00 Only Nick 56232.1.1 ity of 3.412.2.7 [place] .3.574245 MD Zelaya [facility] 2022-01-24 2022-01-24 Orders Alesiso 1.2.840.1 [id number] Univers 00:00:00 00:00:00 Only Nick 41567.1.1 ity of 3.412.2.7 [place] .3.700024 MD Zelaya [facility] 2022-01-23 2022-01-23 Orders Alessio 1.2.840.1 [id number] Univers 00:00:00 00:00:00 Only Nick 21226.1.1 ity of 3.412.2.7 [place] .3.657886 MD Zelaya [facility] 2022-01-23 2022-01-23 Orders Alessio 1.2.840.1 [id number] Univers 00:00:00 00:00:00 Only Nick 00978.1.1 ity of 3.412.2.7 [place] .3.386567 MD Zelaya [facility] 2022-01-23 2022-01-23 Orders Alessio 1.2.840.1 [id number] Univers 00:00:00 00:00:00 Only Nick 66724.1.1 ity of 3.412.2.7 [place] .3.783250 MD Zelaya [facility] 2022-01-23 2022-01-23 Jamison Mccallum, 1.2.840.1 [id number] Univers 00:00:00 00:00:00 Only Nick 27450.1.1 ity of 3.412.2.7 [place] .3.423063 MD Zelaya [facility] 2022-01-17 2022-01-17 [facility] 1.2.840.1 [id number] Univers 15:17:28 23:59:00 Encounter 24154.1.1 it y of 3.412.2.7 [place] .3.907318 MD Zelaya [facility] 2022-01-17 2022-01-17 [facility] 1.2.840.1 [id number] Univers 15:17:28 23:59:00 Encounter 57801.1.1 it y of 3.412.2.7 [place] .3.232896 MD Zelaya [facility] 2022-01-17 2022-01-17 Travel 1.2.840.1 1.2.760.976 1991 [id number] Univers 00:00:00 00:00:00 96861.1.1 350.1.13.41 ity of 3.412.2.7 [place]7.3.698 [place] .3.085547 084.8 MD Zelaya [facility] 2022-01-17 2022-01-17 Travel 1.2.840.1 1.2.786.576 2191 [id number] Univers 00:00:00 00:00:00 01798.1.1 350.1.13.41 ity of 3.412.2.7 2.[place]7.3.698 [place] .3.420978 084.8 MD Zelaya [facility] 2022-01-16 2022-01-16 Jamison Mccallum 1.2.840.1 [id number] 2220 Univers 00:00:00 00:00:00 Only Nick 14601.1.1 ity of 3.412.2.7 [place] .3.657165 MD Blanchard8 [facility] 2022-01-16 2022-01-16 Orders Alessio 1.2.840.1 [id number] Univers 00:00:00 00:00:00 Only Nick 06830.1.1 ity of 3.412.2.7 [place] .3.057347 MD Blanchard8 [facility] 2022-01-13 2022-01-13 Orders Deborah 1.2.840.1 [id number] Univers 00:00:00 00:00:00 Only Viraj Perez 68569.1.1 it y of 3.412.2.7 [place] .3.484332 MD Blanchard8 [facility] 2022-01-13 2022-01-13 Orders Deborah 1.2.840.1 [id number] Univers 00:00:00 00:00:00 Only Viraj Perez 23788.1.1 it y of 3.412.2.7 [place] .3.958648 MD Blanchard8 [facility] 2021-11-22 2021-11-22 Jamison Mccallum 1.2.840.1 [id number] 5082 Univers 00:00:00 00:00:00 Only Nick 86463.1.1 ity of 3.412.2.7 [place] .3.549648 MD Blanchard8 [facility] 2021-11-22 2021-11-22 Orders Adriane Esparza 1.2.840.1 [id number] Univers 00:00:00 00:00:00 Only 67675.1.1 ity of 3.412.2.7 [place] .3.675242 MD Blanchard8 [facility] 2021-11-22 2021-11-22 Jamison Mccallum 1.2.840.1 [id number] Univers 00:00:00 00:00:00 Only Nick 72012.1.1 ity of 3.412.2.7 [place] .3.534146 .8 [facility] 2021-11-22 2021-11-22 Orders Adriane Esparza 1.2.840.1 [id number] Univers 00:00:00 00:00:00 Only 73115.1.1 ity of 3.412.2.7 [place] .3.266793 .8 [facility] 2021-11-04 2021-11-04 Infusion Alessio 1.2.840.1 [id number] Univers 11:30:00 11:34:11 Nick 88606.1.1 ity of 3.412.2.7 [place] .3.083928 .8 [facility] 2021-11-04 2021-11-04 Infusion CARLOS Mccallum 1.2.840.1 [id number] Univers 11:30:00 11:34:11 Nick 65129.1.1 ity of 3.412.2.7 [place] .3.141747 MD [facility] 2021-11-04 2021-11-04 Office Viraj Batres 1.2.840.1 [id number] Univers 09:30:00 10:00:00 Visit Nick Mccallum 08308.1.1 ity of 3.412.2.7 [place] .3.425642 MD [facility] 2021-11-04 2021-11-04 Office Viraj Beckwith 1.2.840.1 [id number] Univers 09:30:00 10:00:00 Visit Nick Mccallum 42482.1.1 ity of 3.412.2.7 [place] .3.501633 MD Zelaya [facility] 2021-11-04 2021-11-04 Outpatient CARLOS MCCALLUM MDA MDA [id number] 08:24:14 08:59:04 NICK broussard 2021-11-04 2021-11-04 Clinical Mercedes Batres2.840.1 [id number] Univers 08:00:00 08:55:28 Support Viraj Perez 71263.1.1 it y of 3.412.2.7 [place] .3.740874 MD Zelaya [facility] 2021-11-04 2021-11-04 Clinical CARLOS Batres, 1.2.840.1 [id number] Univers 08:00:00 08:55:28 Support Viraj Perez 03104.1.1 it y of 3.412.2.7 [place] .3.407344 MD Blanchard8 [facility] 2021-11-04 2021-11-04 Travel 1.2.840.1 1.2.758.621 [id number] Univers 00:00:00 00:00:00 33660.1.1 350.1.13.41 ity of 3.412.2.7 [place]3.698 [place]3.511959 084.8 MD Zelaya [facility] 2021-11-04 2021-11-04 Travel 1.2.840.1 1.2.231.476 [id number] [id number] Univers 00:00:00 00:00:00 34216.1.1 350.1.13.41 ity of 3.412.2.7 [place].3.698 [place] .3.233089 084.8 MD Zelaya [facility] 2021-11-03 2021-11-03 Jamison Batres, 1.2.840.1 [id number] Univers 00:00:00 00:00:00 Only Viraj Perez 37546.1.1 it y of 3.412.2.7 [place] .3.090872 MD Zelaya [facility] 2021-11-03 2021-11-03 Jamison Batres, 1.2.840.1 [id number] Univers 00:00:00 00:00:00 Only Viraj Perez 41423.1.1 it y of 3.412.2.7 [place] .3.088507 MD Zelaya [facility] 2021-10-27 2021-10-27 [place] Nena Kimball, 1.2.840.1 [id number] Univers 11:00:00 12:00:38 Visit Jacek WittLo 99426.1.1 it y of 3.412.2.7 [place] .3.294193 MD Zelaya [facility] 2021-10-27 2021-10-27 Office CARLOS Kimball, 1.2.840.1 [id number] Univers 11:00:00 12:00:38 Visit WilliamsLo 47037.1.1 it y of 3.412.2.7 [place] .3Lo093710 MD Zelaya [facility] 2021-10-27 2021-10-27 Travel 1.2.840.1 1.2.764.494 [id number] Univers 00:00:00 00:00:00 41658.1.1 350.1.13.41 ity of 3.412.2.7 2.[place]7.3.698 [place] .3.783603 084.8 MD Zelaya [facility] 2021-10-27 2021-10-27 Travel 1.2.840.1 1.2.713.693 [id number] [id number] Univers 00:00:00 00:00:00 70006.1.1 350.1.13.41 ity of 3.412.2.7 2.[place]7.3.698 [place] .3.769959 084.8 MD Zelaya [facility] 2021-10-14 2021-10-14 Ezio Mccallum 1.2.840.1 [id number] Univers 15:00:00 16:27:21 Nick 66599.1.1 ity of 3.412.2.7 [place] .3Lo085249 MD Zelaya [facility] 2021-10-14 2021-10-14 Infusion CARLOS Mccallum 1.2.840.1 [id number] 04612 Univers 15:00:00 16:27:21 Nick 51848.1.1 ity of 3.412.2.7 [place] .3oL655346 MD Zelaya [facility] 2021-10-14 2021-10-14 Clinical Batres, 1.2.840.1 [id number] 1089 [id number] Univers 13:00:00 16:17:14 Support Viraj Perez 81614.1.1 it y of 3.412.2.7 [place] .3.130214 MD [facility] 2021-10-14 2021-10-14 Clinical CARLOS Batres, 1.2.840.1 [id number] 1089 [id number] Univers 13:00:00 16:17:14 Support Viraj Perez 70050.1.1 it y of 3.412.2.7 [place] .3Lo800121 [facility] 2021-10-14 2021-10-14 Office Viraj Batres 1.2.840.1 94913 [id number] [id number] Univers 14:00:00 14:30:00 Visit Nick Mccallum 52343.1.1 ity of 3.412.2.7 [place] .3Lo003111 MD [facility]aya [facility] 2021-10-14 2021-10-14 Office Viraj Beckwith 1.2.840.1 [id number] 4665 [id number] Univers 14:00:00 14:30:00 Visit Nick Mccallum 22106.1.1 ity of 3.412.2.7 [place] .3Lo222340 MD [facility] 2021-10-14 2021-10-14 Outpatient CARLOS MCCALLUM [facility] [id number] [id number] 13:16:19 13:46:48 NICK broussard 2021-10-14 2021-10-14 [facility] Deborah 1.2.840.1 [id number] 78555 Univers 00:00:00 00:00:00 Only Viraj Perez 20942.1.1 it y of 3.412.2.7 [place] .3.540567 MD [facility] 2021-10-14 2021-10-14 Travel 1.2.840.1 1.2.894.214 6559 [id number] Univers 00:00:00 00:00:00 64803.1.1 350.1.13.41 ity of 3.412.2.7 [place].3.698 [place].39[place] 084.8 MD [facility]aya [facility] 2021-10-14 2021-10-14 Jamison Batres, 1.2.840.1 [id number] 43871 Univers 00:00:00 00:00:00 Only Viraj Perez 20430.1.1 it y of 3.412.2.7 [place] .3.627844 MD [facility] 2021-10-14 2021-10-14 Travel 1.2.840.1 1.2.076.838 1805 [id number] Univers 00:00:00 00:00:00 83260.1.1 350.1.13.41 ity of 3.412.2.7 [place].3.698 [place].067868 084.8 MD [facility]aya [facility] 2021-10-11 2021-10-11 Telemedici Kelsey Meyer 1.2.840.1 1010 46235 [id number] Univers 09:30:00 09:40:20 Michael Franklin 20268.1.1 ity of 3.412.2.7 [place] .3.358538 MD [facility] 2021-10-11 2021-10-11 Kelsey Sheth 1.2.840.1 1010 77674 [id number] Univers 09:30:00 09:40:20 Michael Franklin 61907.1.1 ity of 3.412.2.7 [place] .3.073649 MD [facility] 2021-10-11 2021-10-11 Blaise Chatman.2.840.1 [id number] 5893 Univers 00:00:00 00:00:00 Jacek Leonard 72543.1.1 it y of 3.412.2.7 [place] .3.257754 MD [facility] 2021-10-11 2021-10-11 Cortney Kimball 1.2.840.1 [id number] 1671 Univers 00:00:00 00:00:00 Jacek Leonard 78759.1.1 it y of 3.412.2.7 [place] .3.342338 MD [facility] 2021-10-09 2021-10-09 [facility] Viraj Batres 1.2.840.1 1010 07558 [id number] Univers 10:40:00 23:59:00 Encounter CoyleMadina Nascimento I 54499.1.1 ity of 3.412.2.7 [place] .3.250434 MD [facility] 2021-10-09 2021-10-09 [facility] Viraj Batres 1.2.840.1 1010 85782 [id number] Univers 10:40:00 23:59:00 Encounter Madina Coyle I 75539.1.1 ity of 3.412.2.7 [place] .3.466238 MD [facility] 2021-10-09 2021-10-09 Travel 1.2.840.1 1.2.628.547 0444 [id number] Univers 00:00:00 00:00:00 24461.1.1 350.1.13.41 ity of 3.412.2.7 [place]7.3.698 [place]3.643712 084.8 MD Zelaya [facility] 2021-10-09 2021-10-09 Travel 1.2.840.1 1.2.098.293 8987 [id number] Univers 00:00:00 00:00:00 26910.1.1 350.1.13.41 ity of 3.412.2.7 [place].7.3.698 [place] .3.610768 084.8 MD Zelaya [facility] 2021-10-06 2021-10-06 [facility] Batres, 1.2.840.1 [id number] 89951 08897 Univers 00:00:00 00:00:00 Only Viraj Perez 47526.1.1 it y of 3.412.2.7 [place] .3.782607 MD Blanchard8 [facility] 2021-10-06 2021-10-06 Jamison Mccallum 1.2.840.1 [id number] 9970 Univers 00:00:00 00:00:00 Only Nick 74581.1.1 ity of 3.412.2.7 [place] .3.659998 MD Blanchard8 [facility] 2021-10-06 2021-10-06 Jamison Batres 1.2.840.1 [id number] 28409 37373 Univers 00:00:00 00:00:00 Only Viraj Perez 79716.1.1 it y of 3.412.2.7 [place] .3.225853 MD Blanchard8 [facility] 2021-10-06 2021-10-06 Jamison Mccallum 1.2.840.1 [id number] 4461 Univers 00:00:00 00:00:00 Only Nick 53703.1.1 ity of 3.412.2.7 [place] .3.278152 MD Blanchard8 [facility] 2021-10-05 2021-10-05 Jamison Mccallum 1.2.840.1 [id number] 8922 Univers 00:00:00 00:00:00 Only Nick 88111.1.1 ity of 3.412.2.7 [place] .3.802209 MD Zelaya [facility] 2021-10-05 2021-10-05 Jamison Mccallum 1.2.840.1 [id number] 6126 Univers 00:00:00 00:00:00 Only Nick 54269.1.1 ity of 3.412.2.7 [place] .3.546613 MD [facility]aya [facility] 2021-10-05 2021-10-05 Jamison Mccallum 1.2.840.1 [id number] 3571 Univers 00:00:00 00:00:00 Only Nick 98226.1.1 ity of 3.412.2.7 [place] .3.702916 MD Zelaya [facility] 2021-10-05 2021-10-05 [facility], 1.2.840.1 [id number] 4653 Univers 00:00:00 00:00:00 Only Nick 81698.1.1 ity of 3.412.2.7 [place] .3.142971 MD Zelaya [facility] 2021-10-04 2021-10-04 [facility], 1.2.840.1 [id number] 01272 85388 Univers 10:05:41 23:59:00 Encounter Nick 92497.1.1 it y of 3.412.2.7 [place] .3.788956 MD Blanchard8 [facility] 2021-10-04 2021-10-04 [facility], 1.2.840.1 [id number] 31417 Univers 10:05:41 23:59:00 Encounter Nick 10930.1.1 it y of 3.412.2.7 [place] .3.237248 MD Zelaya [facility] 2021-10-04 2021-10-04 [facility], 1.2.840.1 [id number] 39220 Univers 09:55:12 10:04:00 Encounter Nick 78645.1.1 it y of 3.412.2.7 [place] .3.928513 MD Zelaya [facility] 2021-10-04 2021-10-04 [facility], 1.2.840.1 [id number] 38459 Univers 09:55:12 10:04:00 Encounter Nick 53065.1.1 it y of 3.412.2.7 [place] .3.308664 MD Zelaya [facility] 2021-10-04 2021-10-04 Travel 1.2.840.1 1.2.652.374 0172 [id number] Univers 00:00:00 00:00:00 99694.1.1 350.1.13.41 ity of 3.412.2.7 [place]7.3.698 [place]3.191360 084.8 MD Zelaya [facility] 2021-10-04 2021-10-04 Travel 1.2.840.1 1.2.365.654 8202 657131 Univers 00:00:00 00:00:00 93860.1.1 350.1.13.41 ity of 3.412.2.7 2.2.7.3.698 [place] .3.352697 084.8 MD Zelaya [facility] 2021-09-14 2021-09-14 Infusion Alessio, 1.2.840.1 [id number] 49183 17309 Univers 15:00:00 16:18:41 Nick 50022.1.1 ity of 3.412.2.7 [place] .3.276317 MD Blanchard8 [facility] 2021-09-14 2021-09-14 Infusion CARLOS Mccallum, 1.2.840.1 [id number] 35987 85899 Univers 15:00:00 16:18:41 Nick 00782.1.1 ity of 3.412.2.7 [place] .3.256458 MD Zelaya [facility] 2021-09-14 2021-09-14 Office Deborah, 1.2.840.1 [id number] 85977 38011 Univers 14:00:00 14:30:00 Visit Viraj Perez 10357.1.1 it y of 3.412.2.7 [place] .3.643289 MD [facility]aya [facility] 2021-09-14 2021-09-14 Office CARLOS Batres, 1.2.840.1 [id number] 16016 97072 Univers 14:00:00 14:30:00 Visit Viraj Perez 21572.1.1 it y of 3.412.2.7 [place] .3.040802 MD [facility]aya [facility] 2021-09-14 2021-09-14 Outpatient CARLOS MCCALLUM, [facility] [id number] 13:15:36 14:14:16 NICK broussard 2021-09-14 2021-09-14 Clinical Deborah, 1.2.840.1 [id number] 1088 [id number] Univers 13:30:00 13:59:32 Support Viraj Perez 37522.1.1 it y of 3.412.2.7 [place] .3.982436 MD .8 [facility] 2021-09-14 2021-09-14 Clinical EL Deborah, 1.2.840.1 [id number] 1088 [id number] [facility] 13:30:00 13:59:32 Support Viraj Perez 54117.1.1 it y of 3.412.2.7 [place] .3.762275 MD [facility]aya [facility] 2021-09-14 2021-09-14 Travel 1.2.840.1 1.2.344.330 5673 398802 Univers 00:00:00 00:00:00 33377.1.1 350.1.13.41 ity of 3.412.2.7 [place]7.3.698 [place]3.9516[place] 084Garcia [facility] 2021-09-14 2021-09-14 Travel 1.2.840.1 1.2.111.223 5525 [id number] Univers 00:00:00 00:00:00 54295.1.1 350.1.13.41 ity of 3.412.2.7 2.2.7.3.698 [place] .3.239122 084Garcia [facility] 2021-09-13 2021-09-13 Jamiosn Batres, 1.2.840.1 [id number] 42256 69324 Univers 00:00:00 00:00:00 Only Viraj Perez 21071.1.1 it y of 3.412.2.7 [place] .3.070471 MD [facility]aya [facility] 2021-09-13 2021-09-13 Jamison Batres, 1.2.840.1 [id number] 87982 55700 Univers 00:00:00 00:00:00 Only Viraj Perez 57061.1.1 it y of 3.412.2.7 [place] .3.329894 MD [facility]aya [facility] 2021-08-29 2021-08-29 Adriane Gonzalez 1.2.840.1 [id number] Univers 00:00:00 00:00:00 Only 65632.1.1 ity of 3.412.2.7 [place] .3.668089 MD Blanchard8 [facility] 2021-08-29 2021-08-29 Telephone Teri, 1.2.840.1 [id number] 1088 [id number] Univers 00:00:00 00:00:00 November L 57452.1.1 ity of 3.412.2.7 [place] .3.298800 MD Blanchard8 [facility] 2021-08-29 2021-08-29 Jamison Esparza Adriane 1.2.840.1 [id number] Univers 00:00:00 00:00:00 Only 99057.1.1 ity of 3.412.2.7 [place] .3.877660 MD Blanchard8 [facility] 2021-08-29 2021-08-29 Telephone Teri, 1.2.840.1 [id number] 1088 [id number] Univers 00:00:00 00:00:00 November L 70677.1.1 ity of 3.412.2.7 [place] .3.071270 MD [facility]aya [facility] 2021-08-24 2021-08-24 Infusion 1.2.840.1 [id number] 63027 36103 Univers 10:30:00 12:06:15 45979.1.1 ity of 3.412.2.7 [place] .3.624128 MD Zelaya [facility] 2021-08-24 2021-08-24 Infusion EL 1.2.840.1 [id number] [id number] 58324 Univers 10:30:00 12:06:15 03890.1.1 ity of 3.412.2.7 [place] .3.537343 MD Blanchard8 [facility] 2021-08-24 2021-08-24 Clinical Deborah, 1.2.840.1 [id number] 1087 [id number] Univers 08:30:00 10:22:06 Support Viraj Perez 67081.1.1 it y of 3.412.2.7 [place] .3.861005 MD [facility]aya [facility] 2021-08-242021-08-24 Clinical CARLOS Batres, 1.2.840.1 [id number] 1087 [id number] Univers 08:30:00 10:22:06 Support Viraj Perez 36695.1.1 it y of 3.412.2.7 [place] .3.493582 MD [facility] 2021-08-24 2021-08-24 Office Batres, 1.2.840.1 [id number] 70253 07518 Univers 09:30:00 10:00:00 Visit Viraj Perez 78796.1.1 it y of 3.412.2.7 [place] .3.555386 MD [facility]aya [facility] 2021-08-24 2021-08-24 Office CARLOS Batres, 1.2.840.1 [id number] 55169 44875 Univers 09:30:00 10:00:00 Visit Viraj Perez 25853.1.1 it y of 3.412.2.7 [place] .3.570141 MD [facility] 2021-08-24 2021-08-24 Outpatient CARLOS BATRES, [facility] MDA [id number] 6397 08:59:28 09:54:34 VIRAJ Brown bobo 2021-08-24 2021-08-24 Travel 1.2.840.1 1.2.664.945 6617 [id number] Univers 00:00:00 00:00:00 47418.1.1 350.1.13.41 ity of 3.412.2.7 2.[place].7.3.698 [place] .3.632609 084.8 MD [facility]aya [facility] 2021-08-24 2021-08-24 Travel 1.2.840.1 1.2.577.668 6987 115227 Univers 00:00:00 00:00:00 66123.1.1 350.1.13.41 ity of 3.412.2.7 2.2.7.3.698 [place] .3.586717 084.8 MD [facility]aya [facility] 2021-08-23 2021-08-23 [facility] Deborah, 1.2.840.1 [id number] 13313 86194 Univers 00:00:00 00:00:00 Only Viraj Perez 23162.1.1 it y of 3.412.2.7 [place] .3.452243 MD [facility] 2021-08-23 2021-08-23 Orders Deborah, 1.2.840.1 [id number] 42600 Univers 00:00:00 00:00:00 Only Viraj Perez 98973.1.1 it y of 3.412.2.7 [place] .3.532988 MD [facility] 2021-08-15 2021-08-15 Ancillary Deborah, 1.2.840.1 [id number] Univers 13:30:00 14:30:00 Procedure Viraj Perez 97641.1.1 ity of 3.412.2.7 [place] .3.267415 MD [facility]aya [facility] 2021-08-15 2021-08-15 Ancillary CARLOS Batres, 1.2.840.1 [id number] Univers 13:30:00 14:30:00 Procedure Viraj Perez 77052.1.1 ity of 3.412.2.7 [place] .3.236009 MD [facility]aya [facility] 2021-08-15 2021-08-15 Travel 1.2.840.1 1.2.659.895 9474 [id number] Univers 00:00:00 00:00:00 77618.1.1 350.1.13.41 ity of 3.412.2.7 2.2.7.3.698 [place] .3.753318 084.8 MD Zelaya [facility] 2021-08-15 2021-08-15 Travel 1.2.840.1 1.2.161.383 8431 228916 Univers 00:00:00 00:00:00 28059.1.1 350.1.13.41 ity of 3.412.2.7 2.2.7.3.698 [place] .3.867317 084.8 MD [facility]aya [facility] 2021-08-03 2021-08-03 [facility], 1.2.840.1 [id number] 72674 18457 Univers 14:08:00 23:59:00 Encounter Jacek Leonard 09825.1.1 ity of 3.412.2.7 [place] .3.445150 MD [facility]aya [facility] 2021-08-03 2021-08-[address] [facility], 1.2.840.1 [id number] 94819 57172 Univers 14:08:00 23:59:00 Encounter Jacek Leonard 97549.1.1 ity of 3.412.2.7 [place] .3.507061 MD Blanchard8 [facility] 2021-08-03 2021-08-03 [facility], 1.2.840.1 [id number] 34531 Univers 13:45:04 14:07:00 Encounter Jacek Mehta50.1.1 ity of 3.412.2.7 [place] .3.728577 MD [facility] 2021-08-03 2021-08-[address] [facility], 1.2.840.1 [id number] 22605 89588 Univers 13:45:04 14:07:00 Encounter Jacek Leonard 67565.1.1 ity of 3.412.2.7 [place] .3.396239 MD [facility]aya [facility] 2021-08-03 2021-08-03 Travel 1.2.840.1 1.2.812.359 0899 534754 Univers 00:00:00 00:00:00 52153.1.1 350.1.13.41 ity of 3.412.2.7 2.2.7.3.698 [place] .3.750871 084.8 MD [facility]aya [facility] 2021-08-03 2021-08-03 Jamison Mendez, 1.2.840.1 [id number] 3280 Univers 00:00:00 00:00:00 Only Jozef 84302.1.1 ity of 3.412.2.7 [place] .3.880033 MD Zelaya [facility] 2021-08-03 2021-08-03 Travel 1.2.840.1 1.2.939.308 1625 [id number] Univers 00:00:00 00:00:00 76822.1.1 350.1.13.41 ity of 3.412.2.7 2.2.7.3.698 [place] .3.986404 084.8 .8 [facility] 2021-08-03 2021-08-03 Orders Andrea, 1.2.840.1 [id number] Univers 00:00:00 00:00:00 Only Jozef 81840.1.1 ity of 3.412.2.7 [place] .3.572019 MD Blanchard8 [facility] 2021-07-29 2021-07-29 Infusion 1.2.840.1 [id number] 01070 81540 Univers 13:00:00 15:07:01 21552.1.1 ity of 3.412.2.7 [place] .3.557269 MD Blanchard8 [facility] 2021-07-29 2021-07-29 Infusion EL 1.2.840.1 [id number] 20179 98884 Univers 13:00:00 15:07:01 57693.1.1 ity of 3.412.2.7 [place] .3.851941 MD Blanchard8 [facility] 2021-07-29 2021-07-29 Outpatient CARLOS MCCALLUM MDA MDA [id number] 747 14:28:13 14:30:33 NICK Brown [facility] 2021-07-29 2021-07-29 Office Francois, 1.2.840.1 [id number] 7321 Univers 11:00:00 11:58:14 Visit Jacek Mehta50.1.1 it y of 3.412.2.7 [place] .3.160742 MD Zelaya [facility] 2021-07-29 2021-07-29 Office EL Francois, 1.2.840.1 [id number] 1175 Univers 11:00:00 11:58:14 Visit Williams. 51028.1.1 it y of 3.412.2.7 [place] .3.810377 .8 [facility] 2021-07-29 2021-07-29 Office Deborah, 1.2.840.1 [id number] 58124 98233 [facility] 10:00:00 10:30:00 Visit Viraj Perez 09373.1.1 it y of 3.412.2.7 [place] .3.541098 .8 [facility] 2021-07-29 2021-07-29 Office CARLOS Batres, 1.2.840.1 [id number] 51115 [facility] 10:00:00 10:30:00 Visit Viraj Perez 88701.1.1 it y of 3.412.2.7 [place] .3.252564 .8 [facility] 2021-07-29 2021-07-29 Clinical CARLOS Batres, 1.2.840.1 [id number] 1086 [id number] [facility] 09:30:00 09:58:38 Support Viraj Perez 57397.1.1 it y of 3.412.2.7 [place] .3.508856 .8 [facility] 2021-07-29 2021-07-29 Clinical Batres, 1.2.840.1 [id number] 1086 [id number] [facility] 09:30:00 09:58:38 Support Viraj Perez 22339.1.1 it y of 3.412.2.7 [place] .3.899492 .8 [facility] 2021-07-29 2021-07-29 Outpatient CARLOS BATRES, [facility] [id number] 09:26:59 09:57:59 VIRAJ broussard 2021-07-29 2021-07-29 Orders Alessio, 1.2.840.1 [id number] 4367 Univers 00:00:00 00:00:00 Only Nick 93945.1.1 ity of 3.412.2.7 [place] .3Lo220748 MD Blanchard8 [facility] 2021-07-29 2021-07-29 Travel 1.2.840.1 1.2.413.538 7368 [id number] Univers 00:00:00 00:00:00 13243.1.1 350.1.13.41 ity of 3.412.2.7 2.2.7.3.698 [place] .3.248767 084.8 MD Zelaya [facility] 2021-07-29 2021-07-29 Jamison Mccallum, 1.2.840.1 [id number] 5148 Univers 00:00:00 00:00:00 Only Nick 41808.1.1 ity of 3.412.2.7 [place] .3.467550 MD Zelaya [facility] 2021-07-29 2021-07-29 Travel 1.2.840.1 1.2.433.541 5224 [id number] Univers 00:00:00 00:00:00 01745.1.1 350.1.13.41 ity of 3.412.2.7 2.2.7.3.698 [place] .3.649097 084.8 MD Zelaya [facility] 2021-07-28 2021-07-28 Jamison Batres, 1.2.840.1 [id number] 06229 20572 Univers 00:00:00 00:00:00 Only Viraj Perez 64213.1.1 it y of 3.412.2.7 [place] .3.101359 MD Zelaya [facility] 2021-07-28 2021-07-28 Jamison Batres 1.2.840.1 [id number] 86819 06865 Univers 00:00:00 00:00:00 Only Viraj Perez 16932.1.1 it y of 3.412.2.7 [place] .3.966191 MD Zelaya [facility] 2021-07-27 2021-07-27 Ra Mccallum 1.2.840.1 [id number] 1086 [id number] Univers 11:55:00 14:20:00 Procedure Nick 40601.1.1 it y of 3.412.2.7 [place] .3.830042 MD Zelaya [facility] 2021-07-27 2021-07-27 Ancillary Alessio, 1.2.840.1 [id number] 1086 [id number] Univers 11:55:00 14:20:00 Procedure Nick 25290.1.1 it y of 3.412.2.7 [place] .3.320917 MD Zelaya [facility] 2021-07-27 2021-07-27 Travel 1.2.840.1 1.2.662.374 1050 835621 Univers 00:00:00 00:00:00 60309.1.1 350.1.13.41 ity of 3.412.2.7 2.2.7.3.698 [place] .3.907149 084.8 MD Zelaya [facility] 2021-07-27 2021-07-27 Travel 1.2.840.1 1.2.128.732 5053 [id number] Univers 00:00:00 00:00:00 03381.1.1 350.1.13.41 ity of 3.412.2.7 2.2.7.3.698 [place] .3.120988 084.8 MD Zelaya [facility] 2021-07-08 2021-07-08 Infusion CARLOS Batres, 1.2.840.1 [id number] 1084 [id number] Univers 10:00:00 12:04:48 Viraj Perez 21547.1.1 it y of 3.412.2.7 [place] .3Lo949384 MD Zelaya [facility] 2021-07-08 2021-07-08 Infusion Deborah, 1.2.840.1 [id number] 1084 [id number] Univers 10:00:00 12:04:48 Viraj Perez 12363.1.1 it y of 3.412.2.7 [place] .3Lo623706 MD Zelaya [facility] 2021-07-08 2021-07-08 Clinical CARLOS Batres, 1.2.840.1 [id number] 1086 [id number] Univers 11:00:00 11:00:00 Support Viraj Perez 08877.1.1 it y of 3.412.2.7 [place] .3Lo918986 MD [facility]aya [facility] 2021-07-08 2021-07-08 Clinical Deborah, 1.2.840.1 [id number] 1086 [id number] Univers 11:00:00 11:00:00 Support Viraj Perez 68200.1.1 it y of 3.412.2.7 [place] .3.346214 MD Zelaya [facility] 2021-07-08 2021-07-08 Office CARLOS Batres, 1.2.840.1 [id number] 30222 23572 Univers 08:30:00 10:36:30 Visit Viraj Perez 84216.1.1 it y of 3.412.2.7 [place] .3.457915 MD Blanchard8 [facility] 2021-07-08 2021-07-08 Office Deborah, 1.2.840.1 [id number] 58445 Univers 08:30:00 10:36:30 Visit Viraj Perez 92677.1.1 it y of 3.412.2.7 [place] .3.540284 MD Blanchard8 [facility] 2021-07-08 2021-07-08 Outpatient CARLOS MCCALLUM [facility] [id number] 08:46:45 09:45:[address] [facility] 2021-07-08 2021-07-08 Travel 1.2.840.1 1.2.726.048 7289 [id number] Univers 00:00:00 00:00:00 61560.1.1 350.1.13.41 ity of 3.412.2.7 2.2[place]7.3.698 [place] .3.294463 084.8 MD Zelaya [facility] 2021-07-08 2021-07-08 Travel 1.2.840.1 1.2.728.013 9322 [id number] Univers 00:00:00 00:00:00 03312.1.1 350.1.13.41 ity of 3.412.2.7 2.2.7.3.698 [place] .3.700764 084.8 MD Zelaya [facility] 2021-07-07 2021-07-07 Jamison Batres, 1.2.840.1 [id number] 45441 85946 Univers 00:00:00 00:00:00 Only Viraj Perez 70214.1.1 it y of 3.412.2.7 [place] .3.505843 MD Blanchard8 [facility] 2021-07-07 2021-07-07 Jamison Batres, 1.2.840.1 [id number] 31063 02659 Univers 00:00:00 00:00:00 Only Viraj Perez 45847.1.1 it y of 3.412.2.7 [place] .3.751069 MD Blanchard8 [facility] 2021-07-01 2021-07-01 Cortney Mccallum 1.2.840.1 [id number] 0234 Univers 00:00:00 00:00:00 Nick 19806.1.1 ity of 3.412.2.7 [place] .3.129146 MD Blanchard8 [facility] 2021-07-01 2021-07-01 Cortney Mccallum 1.2.840.1 [id number] 2532 Univers 00:00:00 00:00:00 Nick 78654.1.1 ity of 3.412.2.7 [place] .3.255212 .8 [facility] 2021-06-17 2021-06-17 Office CARLOS Mccallum, 1.2.840.1 [id number] Univers 13:00:00 15:51:11 Visit Nick 77359.1.1 ity of 3.412.2.7 [place] .3.331505 .8 [facility] 2021-06-17 2021-06-17 Office Alessio, 1.2.840.1 [id number] [facility] 13:00:00 15:51:11 Visit Nick 20247.1.1 ity of 3.412.2.7 [place] .3.017012 MD Blanchard8 [facility] 2021-06-17 2021-06-17 Infusion 1.2.840.1 [id number] [facility] 14:00:00 15:23:40 95628.1.1 ity of 3.412.2.7 [place] .3.997879 MD Zelaya [facility] 2021-06-17 2021-06-17 Infusion 1.2.840.1 [id number] Univers 14:00:00 15:23:40 84610.1.1 ity of 3.412.2.7 [place] .3.352389 MD Zelaya [facility] 2021-06-17 2021-06-17 Outpatient EL ADRIANE ESPARZA [facility] MDA [id number] 12:05:29 12:21:24 [facility] 2021-06-17 2021-06-17 Clinical EL 1.2.840.1 [id number] [facility] 11:30:00 12:06:58 Support 29211.1.1 ity of 3.412.2.7 [place] .3.727031 MD Zelaya [facility] 2021-06-17 2021-06-17 Clinical 1.2.840.1 [id number] [id number] [facility] 11:30:00 12:06:58 Support 58460.1.1 ity of 3.412.2.7 [place] .3.870846 MD Blanchard8 [facility] 2021-06-17 2021-06-17 Outpatient [facility] [id number] [place] 11:19:30 12:06:20 [facility] 2021-06-17 2021-06-17 Jamison Batres, 1.2.840.1 [id number] [facility] 00:00:00 00:00:00 Only Viraj Perez 55948.1.1 it y of 3.412.2.7 [place] .3.115402 MD Zelaya [facility] 2021-06-17 2021-06-17 Travel 1.2.840.1 1.2.483.100 [id number] [facility] 00:00:00 00:00:00 54559.1.1 350.1.13.41 ity of 3.412.2.7 [place]3.698 [place] .[place].6610[place] 084.8 MD Zelaya [facility] 2021-06-17 2021-06-17 Jamison Batres, 1.2.840.1 [id number] [facility] 00:00:00 00:00:00 Only Viraj Perez 56907.1.1 it y of 3.412.2.7 [place] .3.444161 MD Blanchard8 [facility] 2021-06-17 2021-06-17 Travel 1.2.840.1 1.2.639.818 [id number] [facility] 00:00:00 00:00:00 99149.1.1 350.1.13.41 ity of 3.412.2.7 [place].3.698 [place]3.4627[place] 084.8 MD Zelaya [facility] 2021-05-17 2021-05-17 Cortney Kimball, 1.2.840.1 [id number] Univers 00:00:00 00:00:00 Jacek Leonard 62046.1.1 it y of 3.412.2.7 [place] .3.475108 MD Blanchard8 [facility] 2021-05-13 2021-05-13 Outpatient MDA MDA [id number] 09:09:27 09:16:12 Kevin broussard 2021-05-13 2021-05-13 Office CARLOS Batres, 1.2.840.1 [id number] [facility] 08:30:00 09:00:00 Visit Viraj Perez 47172.1.1 it y of 3.412.2.7 [place] .3.400729 MD Zelaya [facility] 2021-05-13 2021-05-13 Clinical CARLOS Mccallum, 1.2.840.1 [id number] 47970 [facility] 08:00:00 08:34:28 Support Nick 46467.1.1 ity of 3.412.2.7 [place] .3.332911 [facility] 2021-05-13 2021-05-13 Outpatient CARLOS BATRES MDA MDA [id number] 08:16:16 08:34:14 VIRAJ broussard 2021-05-13 2021-05-13 Jamison Alessio, 1.2.840.1 [id number] Univers 00:00:00 00:00:00 Only Nick 89513.1.1 ity of 3.412.2.7 [place] .3.249208 MD Zelaya [facility] 2021-05-13 2021-05-13 Travel 1.2.840.1 1.2.208.802 [id number] [facility] 00:00:00 00:00:00 12067.1.1 350.1.13.41 ity of 3.412.2.[place]3.698 [place]3.46[place] 08Frederick Zelaya [facility] 2021-05-12 2021-05-12 Jamison Batrse, 1.2.840.1 [id number] [facility] 00:00:00 00:00:00 Only Viraj Perez 65770.1.1 it y of 3.412.2.7 [place] .3.152990 MD Zelaya [facility] 2021-05-07 2021-05-07 Ancillary CARLOS Kimball, 1.2.840.1 [id number] Univers 06:15:00 08:00:00 Procedure Jacek Leonard 77773.1.1 ity of 3.412.2.7 [place] .3.987486 MD Zelaya [facility] 2021-05-07 2021-05-07 Travel 1.2.840.1 1.2.821.522 [id number] [facility] 00:00:00 00:00:00 78800.1.1 350.1.13.41 ity of 3.412.2.[place]3.698 [place]3.8185[place] Edwardo Zelaya [facility] 2021-04-28 2021-04-28 Office CARLOS Kimball, 1.2.840.1 [id number] Univers 09:30:00 10:42:27 Visit Jacek Leonard 53948.1.1 it y of 3.412.2.7 [place] .3.572877 MD Zelaya [facility] 2021-04-28 2021-04-28 Travel 1.2.840.1 1.2.993.288 [id number] [facility] 00:00:00 00:00:00 58997.1.1 350.1.13.41 ity of 3.412.2.[place].698 [place] .3.4580[place] 084.8 MD Zelaya [facility] 2021-04-22 2021-04-22 Infusion CARLOS Mccallum, 1.2.840.1 [id number] [facility] 12:30:00 14:08:40 Nick 39131.1.1 ity of 3.412.2.7 [place] .3.782140 MD Zelaya [facility] 2021-04-22 2021-04-22 Office CARLOS Batres, 1.2.840.1 [id number] [facility] 11:30:00 12:00:00 Visit Viraj Perez 12769.1.1 it y of 3.412.2.7 [place] .3.937052 MD Zelaya [facility] 2021-04-22 2021-04-22 Clinical CARLOS Batres, 1.2.840.1 [id number] [facility] 10:00:00 11:27:55 Support Viraj Perez 19161.1.1 it y of 3.412.2.7 [place] .3.773448 MD Zelaya [facility] 2021-04-22 2021-04-22 Outpatient CARLOS MCCALLUM, [facility] [id number] MD 10:16:09 10:44:53 NICK Brown bobo 2021-04-22 2021-04-22 Travel 1.2.840.1 1.2.467.967 [id number] [facility] 00:00:00 00:00:00 90786.1.1 350.1.13.41 ity of 3.412.2.[place].698 [place] .3.143073 084.8 MD Zelaya [facility] 2021-04-20 2021-04-20 Ancillary CARLOS Mccallum, 1.2.840.1 [id number] [facility] 10:25:00 12:50:00 Procedure Nick 85361.1.1 it y of 3.412.2.7 [place] .3.587274 .Missy [facility] 2021-04-20 2021-04-20 Travel 1.2.840.1 1.2.855.264 [id number] [facility] 00:00:00 00:00:00 64777.1.1 350.1.13.41 ity of 3.412.2.[place].698 [place] .3.604118 084.8 .8 [facility] 2021-03-25 2021-03-25 Infusion CARLOS Mccallum, 1.2.840.1 [id number] [facility] 11:00:00 14:33:53 Nick 46256.1.1 ity of 3.412.2.7 [place] .3.909198 MD Zelaya [facility] 2021-03-25 2021-03-25 Office CARLOS Mccallum, 1.2.840.1 [id number] [facility] 10:00:00 10:30:00 Visit Nick 32325.1.1 ity of 3.412.2.7 [place] .3.227685 MD Zelaya [facility] 2021-03-25 2021-03-25 Outpatient CARLOS BATRES MDA MDA [id number] 09:07:30 09:39:20 VIRAJ broussard 2021-03-25 2021-03-25 Outpatient CARLOS MCCALLUM MDA MDA [id number] 09:06:46 09:39:19 NICK broussard 2021-03-25 2021-03-25 Jamison Mcknight 1.2.840.1 [id number] [facility] 00:00:00 00:00:00 Only Cole 20501.1.1 ity of 3.412.2.7 [place] .3.495345 MD Zelaya [facility] 2021-03-25 2021-03-25 Travel 1.2.840.1 1.2.204.548 [id number] [id number] [facility] 00:00:00 00:00:00 29759.1.1 350.1.13.41 ity of 3.412.2.[place]7.3.698 [place] .3.573953 084.8 MD Zelaya [facility] 2021-03-22 2021-03-22 Orders Alessio, 1.2.840.1 [id number] 1543 [facility] 00:00:00 00:00:00 Only Nick 45017.1.1 ity of 3.412.2.7 [place] .3.016535 MD Blanchard8 [facility] 2021-03-21 2021-03-21 Jamison Batres 1.2.840.1 [id number] [facility] 00:00:00 00:00:00 Only Viraj Perez 92342.1.1 it y of 3.412.2.7 [place] .3.174354 MD Zelaya [facility] 2021-03-20 2021-03-20 Adriane Gonzalez 1.2.840.1 [id number] [facility] 00:00:00 00:00:00 Only 55413.1.1 ity of 3.412.2.7 [place] .3.657111 MD Zelaya [facility] 2021-03-17 2021-03-17 Adriane Gonzalez 1.2.840.1 [id number] Univers 00:00:00 00:00:00 Only 96032.1.1 ity of 3.412.2.7 [place] .3.069919 MD Zelaya [facility] 2021-03-04 2021-03-04 Infusion Adriane Carpenter 1.2.840.1 [id number] [facility] 10:00:00 11:12:35 82614.1.1 ity of 3.412.2.7 [place] .3.747642 MD Zelaya [facility] 2021-03-04 2021-03-04 Office CARLOS Batres 1.2.840.1 [id number] [facility] 09:00:00 09:30:00 Visit Viraj Perez 55623.1.1 it y of 3.412.2.7 [place] .3.993061 MD Blanchard8 [facility] 2021-03-04 2021-03-04 Outpatient CARLOS MEDRANOSHARADADRIANE MDA MDA [id number] 08:06:11 08:38:00 Kevin broussard 2021-03-04 2021-03-04 Clinical CARLOS Adams 1.2.840.1 [id number] [facility] 08:15:00 08:31:11 Support Miguel Vieyra 20217.1.1 it y of 3.412.2.7 [place] .3.286892 MD Blanchard8 [facility] 2021-03-04 2021-03-04 Travel 1.2.840.1 1.2.779.177 [id number] [id number] [facility] 00:00:00 00:00:00 50714.1.1 350.1.13.41 ity of 3.412.2.[place].698 [place] .3.097134 084.8 MD Blanchard8 [facility] 2021-02-25 2021-02-25 Infusion CARLOS EsparzaMistyna 1.2.840.1 [id number] [facility] 10:30:00 13:30:00 85138.1.1 ity of 3.412.2.7 [place] .3.138708 MD Blanchard8 [facility] 2021-02-25 2021-02-25 Clinical CARLOS Adams 1.2.840.1 [id number] [facility] 08:15:00 11:17:43 Support Miguel Vieyra 62608.1.1 it y of 3.412.2.7 [place] .3.470482 MD Blanchard8 [facility] 2021-02-25 2021-02-25 Outpatient ADRIANE [facility] MDA [id number] 08:40:43 09:48:16 Kevin broussard 2021-02-25 2021-02-25 Jamison Mccallum 1.2.840.1 [id number] [facility] 00:00:00 00:00:00 Only Nick 38272.1.1 ity of 3.412.2.7 [place] .3.408763 MD Blanchard8 [facility] 2021-02-25 2021-02-25 Jamison Alessio, 1.2.840.1 [id number] [facility] 00:00:00 00:00:00 Only Nick 34815.1.1 ity of 3.412.2.7 [place] .3.176814 MD Zelaya [facility] 2021-02-25 2021-02-25 Travel 1.2.840.1 1.2.607.379 [id number] [facility] 00:00:00 00:00:00 31013.1.1 350.1.13.41 ity of 3.412.2.[place].3.698 [place] .3.825875 084.8 MD Zelaya [facility] 2021-02-18 2021-02-18 Office CARLOS Mccallum, 1.2.840.1 [id number] [facility] 08:30:00 12:33:50 Visit Nick 06531.1.1 ity of 3.412.2.7 [place] .3.217139 MD Zelaya [facility] 2021-02-18 2021-02-18 Outpatient ADRIANE CARPENTER [facility] [id number] 08:04:07 08:25:37 Kevin [facility] 2021-02-18 2021-02-18 Clinical CARLOS Batres 1.2.840.1 [id number] [facility] 08:00:00 08:24:33 Support Viraj Perez 37969.1.1 it y of 3.412.2.7 [place] .3.857928 MD Zelaya [facility] 2021-02-18 2021-02-18 Travel 1.2.840.1 1.2.167.117 [id number] [facility] 00:00:00 00:00:00 20895.1.1 350.1.13.41 ity of 3.412.2.[place].698 [place] .3.228287 084.8 MD .8 [facility] 2021-02-15 2021-02-15 Refsheri Adams, 1.2.840.1 [id number] [facility] 00:00:00 00:00:00 Miguel Vieyra 11923.1.1 it y of 3.412.2.7 [place] .3.069742 MD .8 [facility] 2021-02-10 2021-02-10 Refsheri Terry, 1.2.840.1 [id number] [facility] 00:00:00 00:00:00 Abdullahi Webb 62303.1.1 it y of 3.412.2.7 [place] .3.479467 .8 [facility] 2021-01-28 2021-01-28 Outpatient EL KIMBALL, MDA MDA [id number] MD 15:52:05 23:59:00 JACEK broussard 2021-01-28 2021-01-28 Outpatient EL KIMBALL, MDA MDA [id number] MD 14:52:11 15:51:00 JACEK broussard 2021-01-28 2021-01-28 Outpatient EL GIOVANNY, MDA MDA [id number] MD 14:51:44 14:51:44 VALERIE broussard 2021-01-28 2021-01-28 Outpatient EL KIMBALL, MDA MDA [id number] MD 13:40:16 14:50:00 JACEK broussard 2021-01-24 2021-01-24 Outpatient EL KIMBALL, MDA MDA [id number] MD 09:05:56 10:10:49 JACEK broussard 2021-01-24 2021-01-24 Outpatient EL SLSL SLSL [id number] SLSL 00:00:00 00:00:00 2021-01-21 2021-01-21 Outpatient EL DEBORAH, MDA MDA [id number] 09:29:25 13:08:21 VIRAJ broussard 2021-01-21 2021-01-21 Outpatient EL DEBORAH, MDA MDA [id number] 08:20:06 08:20:06 VIRAJ broussard 2021-01-19 2021-01-19 Outpatient DEBORAH, MDA MDA [id number] 12:46:37 23:59:00 VIRAJ broussard 2021-01-19 2021-01-19 Outpatient FARZAD, MDA MDA [id number] 12:50:26 12:50:26 MIGUEL broussard 2020-12-24 2020-12-24 Outpatient FARZAD, MDA MDA [id number] 09:23:26 15:09:37 MIGUEL broussard 2020-12-24 2020-12-24 Outpatient DEBORAH, MDA MDA [id number] 08:47:18 09:34:10 VIRAJ broussard 2020-12-24 2020-12-24 Outpatient FARZAD, MDA MDA [id number] 08:19:49 08:50:29 MIGUEL broussard 2020-12-24 2020-12-24 Outpatient FARZAD, MDA MDA [id number] 08:20:30 08:42:06 MIGUEL broussard 2020-11-30 2020-11-30 Outpatient FRANCOIS, MDA MDA [id number] 07:41:33 23:59:00 JACEK broussard 2020-11-26 2020-11-26 Outpatient DEBORAH, MDA MDA [id number] 10:04:21 14:59:16 VIRAJ broussard 2020-11-26 2020-11-26 Outpatient [facility], MDA MDA [id number] 09:54:21 10:00:10 NICK broussard 2020-11-26 2020-11-26 Outpatient DEBORAH, MDA MDA [id number] 08:20:44 09:45:53 VIRAJ broussard 2020-11-26 2020-11-26 Outpatient DEBORAH, MDA MDA [id number] 08:41:00 09:22:56 VIRAJ broussard 2020-11-26 2020-11-26 Outpatient DEBORAH, MDA MDA [id number] 09:21:39 09:21:39 VIRAJ broussard 2020-11-08 2020-11-08 Outpatient CARLOS BATRES, MDA MDA [id number] MD 11:18:51 13:22:46 VIRAJ broussard 2020-10-29 2020-10-29 Outpatient CARLOS KIMBALL, MDA MDA [id number] MD 16:14:57 23:59:00 JACEK broussard 2020-10-29 2020-10-29 Outpatient CARLOS KIMBALL, MDA MDA [id number] MD 16:00:00 16:13:00 JACEK broussard 2020-10-29 2020-10-29 Outpatient CARLOS MCCALLUM, MDA MDA [id number] MD 10:59:42 15:10:06 NICK broussard 2020-10-29 2020-10-29 Outpatient CARLOS BATRES, MDA MDA [id number] 10:07:43 10:07:43 VIRAJ broussard 2020-10-29 2020-10-29 Outpatient CARLOS MCCALLUM, MDA MDA [id number] 09:14:51 10:07:05 NICK Brown o bobo 2020-10-29 2020-10-29 Outpatient CARLOS BATRES, MDA MDA [id number] 00:00:00 00:00:00 VIRAJ broussard 2020-10-27 2020-10-27 Outpatient CARLOS MCCALLUM, MDA MDA [id number] MD 16:13:39 23:59:00 NICK broussard 2020-10-27 2020-10-27 Outpatient CARLOS KIMBALL, MDA MDA [id number] 13:02:09 13:02:09 JACEK broussard 2020-10-25 2020-10-25 Outpatient CARLOS KIMBALL, MDA MDA [id number] MD 11:40:40 16:03:29 JACEK broussard 2020-10-18 2020-10-18 Outpatient CARLOS BATRES, MDA MDA [id number] MD 13:05:00 23:59:00 VIRAJ broussard 2020-10-11 2020-10-11 Outpatient CARLOS KIMBALL, MDA MDA [id number] MD 08:58:24 08:58:24 JACEK broussard 2020-10-01 2020-10-01 Outpatient CARLOS MCCALLUM, MDA MDA [id number] 09:12:07 13:48:15 NICK broussard 2020-10-01 2020-10-01 Outpatient CARLOS BATRES, MDA MDA [id number] 08:03:15 08:03:15 VIRAJ broussard 2020-09-30 2020-09-30 Outpatient EL GULSHAN, MDA Surgical [id number] 06:48:00 11:50:00 JARETT broussard 2020-09-30 2020-09-30 Outpatient EL MDA MDA [id number] 10:30:43 10:30:43 Kevin broussard 2020-09-30 2020-09-30 Outpatient EL MDA MDA [id number] 08:50:17 08:50:17 Kevin broussard 2020-09-30 2020-09-30 Outpatient GULSHAN, MDA MDA [id number] 07:42:26 07:42:26 JARETT broussard 2020-09-30 2020-09-30 Outpatient KALIN, MDA MDA [id number] 07:01:16 07:01:16 GUERITA broussard 2020-09-30 2020-09-30 Outpatient CARLOS MCCALLUM, MDA MDA [id number] 06:09:04 06:47:00 NICK broussard 2020-09-30 2020-09-30 Outpatient KALIN, MDA MDA [id number] 06:04:30 06:08:00 GUERITA broussard 2020-09-28 2020-09-28 [facility] [id number] 08:06:09 08:06:09 GUERITA broussard 2020-09-27 2020-09-27 Outpatient CARLOS MCCALLUM, MDA MDA [id number] 09:46:58 23:59:00 NICK broussard 2020-09-27 2020-09-27 Outpatient KALIN, MDA MDA [id number] 12:09:59 14:13:50 GUERITA broussard 2020-09-27 2020-09-27 Outpatient CARLOS FRANCOIS, MDA MDA [id number] 14:03:54 14:03:54 JACEK broussard 2020-09-27 2020-09-27 [facility] MDA [id number] 11:35:09 11:35:09 GUERITA broussard 2020-09-27 2020-09-27 Outpatient KALIN, MDA MDA [id number] 09:21:58 09:32:11 GUERITA broussard 2020-09-27 2020-09-27 Outpatient [facility], MDA MDA [id number] 07:44:10 07:44:10 GUERITA broussard 2020-09-03 2020-09-03 Outpatient BATRES, MDA MDA [id number] MD 10:21:20 15:43:11 VIRAJ broussard 2020-09-03 2020-09-03 Outpatient BATRES, MDA MDA [id number] MD 09:14:54 09:14:54 VIRAJ broussard 2020-09-03 2020-09-03 Outpatient BATRES, MDA MDA [id number] 08:46:38 09:01:31 VIRAJ broussard 2020-08-06 2020-08-06 [facility] MDA [id number] MD 08:31:12 17:46:16 VIRAJ broussard 2020-08-06 2020-08-06 Outpatient BATRES, MDA MDA [id number] 08:06:29 08:31:14 VIRAJ broussard 2020-08-05 2020-08-05 Outpatient ALESSIO, MDA MDA [id number] MD 10:16:11 10:16:11 NICK Brown o bobo 2020-07-30 2020-07-30 Outpatient ALESSIO, MDA MDA [id number] 12:34:23 12:57:45 NICK Brown o bobo 2020-07-30 2020-07-30 Outpatient BATRES, MDA MDA [id number] 09:14:43 12:32:08 VIRAJ broussard 2020-07-30 2020-07-30 Outpatient BATRES, MDA MDA [id number] 11:09:50 11:09:50 VIRAJ broussard 2020-07-30 2020-07-30 Outpatient AIMEE BATRES MDA [id number] 09:18:53 09:18:53 VIRAJ broussard 2020-07-27 2020-07-27 Outpatient EL DEBORAH AIMEE YU [id number] 12:53:52 12:53:52 VIRAJ broussard Results Test Description Test Time Test Comments Results Result Comments Source POC Creatinine 2022-04-21 00:14:57 Test Item Value Reference Range Interpretation Comme nts POC Crea (test code = 0.8 mg/dL 0.6-1.3 Medica tions, especially 76942-7) hydroxyurea or supplements, such as ascorba te, [...] See_Comment Nor mal eGFR >= 60 mL/min/1.73 36612-0) m2 The eGFR is calculated using the [...] sean ge with normal or high GFR >=9 02 Kidney damage with mil d decrease in GFR 60-893a Mil d to moderate decrease in GFR 45-593b Moderate to sev ere decrease in GFR 30-444 Diamante re decrease in GFR 15-295 Kidn ey failure <15 (or dialysis) [ Automated message] The sy stem which generated this result transmitted ref erence range: >=60 mL/min/1.7 3 m2. The reference range was not used to interpret th is result as normal/abnormal . POC eGFR-GERBER (test code = 67 See_Comment No rmal eGFR >= 60 mL/min/1.73 80960-2) m2 The eGFR is calculated using the [...] sean ge with normal or high GFR >=9 02 Kidney damage with mil d decrease in GFR 60-893a Mil d to moderate decrease in GFR 45-593b Moderate to sev ere decrease in GFR 30-444 Diamante re decrease in GFR 15-295 Kidn ey failure <15 (or dialysis) [ Automated message] The sy stem which generated this result transmitted ref erence range: >=60 mL/min/1.7 3 m2. The reference range was not used to interpret th is result as normal/abnormal . POC Clean Dev (test code Yes = 6672) Performing Lab (test code [facility] = [address]686) [place] MD [facility] on [facility], [address], [place], [place] [address]; Presales Senior Specialist: Kylee Padilla MD [facility] CenterFractionated [id number] 00:06:53 Test Item Value Reference Range Interpretation Comments Bili Total (test <0.3 See_Comment Direct and indirect code = 1975-2) bilirubin whitley l not be reported when T otal bilirubin resul t is <0.3 mg/dLIndocyanin e Green (ICG) may cause false ly elevated bilirubin resul ts. Total and direct bilirubi n must not be measured from s amples containing indo cyanine green. False el evation of total bilirubin can be seen in patients wit h IgG concentrations above 28 g/L. [Automated mess age] The system which ge nerated this result transmit sammie reference range: <=1.2 mg /dL. The reference range was not used to interpret th is result as normal/abnormal . [facility] [id number] 00:06:51 Test Item Value Reference Range Interpretation Comments Total Protein (test code = 2885-2) 6.7 g/dL 6.4-8.3 [facility]esium2022-09-02 00:06:50 Test Item Value Reference Range Interpretation Comments Magnesium (test code = 21608-2) 1.6 mg/dL 1.6-2.6 [facility] RegionalAlkaline [id number] 00:06:49 Test Item Value Reference Range Interpretation Comments Alk Phos (test code = 6768-6) 122 U/L 35-104 H Lab Interpretation (test code = Abnormal 91147-2) [facility] RegionalAlbumin [id number] 00:06:44 Test Item Value Reference Range Interpretation Comments Albumin Lvl (test code 4.1 See_Comment [Aut omated message] The = 4763) system which ge nerated this result tra nsmitted reference range : 3.5 - 5.2 gm/dL. The refe rence range was not used to interpret this result as normal/abnormal . [facility]PO [id number] 22:54:57 Test Item Value Reference Range Interpretation Comments POC Crea (test 0.8 mg/dL 0.6-1.3 Medications, code = 06490-7) especially h ydroxyurea or supplements, such as ascorbate, c an interfere with test results causing a falsely and significantly h igher result than exp ected. If a problem is suspected with a patient's resul t, a sample should b e sent to the laborato for confirmatory te sting. Method descript ion: The i-STAT is a n analyzer used f or in vitro quantific ation of various anal ytes in whole blood. Th e device uses a s new disposable cart ridge which contains microfabricated sensors, a estelita bration solution, fluid ics system, and a w aste chamber. Each t est cartridge conta ins chemically sens itive biosensors on a silicon chip are configured to p erform specific tests. The microfabricated sensors measure analyte concent ration by an electroch emical assay. POC eGFR-AA (test 77 See_Comment Normal eGF R >= 60 code = 34871-7) mL/min/1.73 m2 The eGFR is calcula sammie using the CKD-E PI equation. The e GFR declines with a ge. eGFR <60 mL/min /1.73 m2 is considere d as "decreased" Thi s equation should only be used for pat ients 18 and older. According to National Kidney Foundation's dney Disease Outcome Quality Initiat vandana (KDOQI) classif ication and 2012 Kidney Disease Improvi ng Global Outcomes (KDIGO) Clinica l Practice Guidel ine, the stage of CK D should be categ orized based on estima sammie GFR. Stage Desc ription GFR mL/min/1.73 m21 Kidney damage w ith normal or high GFR >=902 Kidney da mage with mild decre ase in GFR 60-893a Mil d to moderate decrea se in GFR 45-593b Mod erate to severe decre ase in GFR 30-444 Diamante re decrease in GFR 15-295 Kidney failure <15 (or dialysis) [Auto mated message] The sy stem which generated this result transmit sammie reference range : >=60 mL/min/1.73 m2. The reference range was not used to int erpret this result as normal/abnormal . POC eGFR-GERBER (test 67 See_Comment Normal eG FR >= 60 code = 75929-2) mL/min/1.73 m2 The eGFR is calcula sammie using the CKD-E PI equation. The e GFR declines with a ge. eGFR <60 mL/min /1.73 m2 is considere d as "decreased" Thi s equation should only be used for pat ients 18 and older. According to e National Kidney Foundation's dney Disease Outcome Quality Initiat vandana (KDOQI) classif ication and 2011 Kidney Disease Improvi ng Global Outcomes (KDIGO) Clinica l Practice Guidel ine, the stage of CK D should be categ orized based on estima sammie GFR. Stage Desc ription GFR mL/min/1.73 m21 Kidney damage w ith normal or high GFR >=902 Kidney da mage with mild decre ase in GFR 60-893a Mil d to moderate decrea se in GFR 45-593b Mod erate to severe decre ase in GFR 30-444 Diamante re decrease in GFR 15-295 Kidney failure <15 (or dialysis) [Auto mated message] The sy stem which generated this result transmit sammie reference range : >=60 mL/min/1.73 m2. The reference range was not used to int erpret this result as normal/abnormal . POC Clean Dev Yes (test code = 6672) Performing Lab [facility] (test code = [facility] [place] [address]) Clinical Lab, [address] [facility], [place], [place] [address]; Presales Senior Specialist: Kylee Padilla MD [facility] Cancer CenterRAD, SHOULDER, COMPLETE (MIN 2 VIEWS), [id number] 11:08:00Reason for Exam:->M54.9,G89.29 [facility] : 1935 Sex: FFINAL REPORT Right shoulder History provided: M 54.9 No fracture or dislocation. Glenohumeral joint space is narrowed with minimal spurring, consistent with degenerative change. Signed: Cnostantin Jacinto Verified Date/Time: 01/24/2021 11:08:40 Reading Location: [facility] Diagnostic ImagingReading Room - [facility] 1.310.12
[2022-06-13] MEDS ORDERED: MORPHINE 4 MG/ML SYR ONE (11:47)
[2022-06-13] MEDS ORDERED: ONDANSETRON 4 MG/2 ML VIAL ONE (11:47)
--- NOTE | 2022-06-13 13:26 | RAD REPORT ---
EXAM DESCRIPTION: RAD - Hip Right 2 View - 06/13/2022 12:58 pm CLINICAL HISTORY: PAIN COMPARISON: Pelvis dated 06/13/2022 FINDINGS: Right superior pubic ramus fracture which is mildly displaced. Probable right inferior pub ic ramus fracture. The right femoral neck and head is not well assessed due to the technique. No disl ocation IMPRESSION: Right superior pubic ramus fracture. There is presumably in the inferior pubic ramus fra cture as well. The right femoral neck is not well evaluated due to technique.
--- NOTE | 2022-06-13 13:26 | RAD REPORT ---
EXAM DESCRIPTION: RAD - Pelvis - 06/13/2022 12:59 pm CLINICAL HISTORY: PAIN COMPARISON: Pelvis dated 12/29/2021 FINDINGS/IMPRESSION: Right-sided obturator ring fracture with involvement of the superior pubic abel s and presumably the inferior pubic ramus. No hip fractures identified. Degenerative changes are pres ent in the lower spine. Osteopenia.
--- NOTE | 2022-06-13 14:10 | RAD REPORT ---
EXAM DESCRIPTION: CT - Hip Right Wo Con - 06/13/2022 1:55 pm CLINICAL HISTORY: Right hip pain COMPARISON: Stone Protocol dated 02/10/2022 FINDINGS: Mildly comminuted right superior pubic ramus and pubic symphysis fracture as well as a min imally displaced fracture of the inferior pubic ramus. The right hip is intact. No dislocation. Remot e left obturator ring fracture identified. Moderate hemorrhage with compression of the bladder in the lower aspect of the rectus sheath. Fat containing inguinal hernias. Cystic and solid pelvic mass has increased in size measuring 8.6 cm, previously 7.9 cm. Likely prior hysterectomy. IMPRESSION: Acute right obturator ring fracture with moderate sized hematoma in the lower aspect of the rectus sheath. Evaluation for active bleeding not possible without IV contrast. Enlarging pelvic mass suspicious for neoplasm. Consider non emergent gynecologic referral.
--- NOTE | 2022-06-13 14:50 | EDPHYS ---
Physician Documentation [facility] Name: Neris Lloyd Age: 86 yrs Sex: Female : 1935 Arrival Date: 06/13/2022 Time: 11:31 Bed 19 Private MD: ED Physician Gretchen Maya HPI: 06/13 11:32 This 86 yrs old Female presents to ER via EMS with complaints of Right hip pain. pm1 11:32 The patient or guardian reports an injury, pain. that occurred at home, sustained from pm1 tripped on hangers There is no obvious deformity, The patient is able to bear partial body weight. There is no radiation of the patient's discomfort. The complaints affect the right hip and right groin. Onset: The symptoms/episode began/occurred 2 day(s) ago. Modifying factors: The symptoms are alleviated by remaining still, the symptoms are aggravated by weight bearing. Associated signs and symptoms: Loss of consciousness: the patient experienced no loss of consciousness, Pertinent negatives: headache, head injury, neck pain. Severity of symptoms: in the emergency department the symptoms are unchanged. The patient has experienced a previous episode, Patient with fall 2-3 months ago with resulting left pelvic ramus fracture. The patient has not recently seen a physician. Patient was walking with her walker and tripped on hangers. Patient fell onto her right hip area. Negative for head injury, headache, neck pain, back pain, LOC. Injury occurred 2 days ago. Patient has been using her walker and has been scooting around on it versus using it for walking. Historical: - Allergies: 11:38 Bactrim; db 13:09 Sulfa (Sulfonamide Antibiotics); db - PMHx: 11:38 Anxiety; Atrial Fib; Back pain; Hypertension; ovarian cancer; UTI; db - PSHx: 11:38 Colostomy; Port a cath; db - Immunization history:: Client reports receiving the 2nd dose of the Covid vaccine. - Social history:: Smoking status: Patient denies any tobacco usage or history of. ROS: 11:32 Constitutional: Negative for fever, chills, and weight loss, Neck: Negative for injury, pm1 pain, and swelling, Cardiovascular: Negative for chest pain, palpitations, and edema, Respiratory: Negative for shortness of breath, cough, wheezing, and pleuritic chest pain, Abdomen/GI: Negative for abdominal pain, nausea, vomiting, diarrhea, and constipation, Back: Negative for injury and pain. 11:32 Skin: Negative for injury, rash, and discoloration, Neuro: Negative for headache, weakness, numbness, tingling, and seizure. 11:32 MS/extremity: Positive for pain, of the right hip, Negative for decreased range of motion, deformity. 11:32 All other systems are negative. Exam: 11:32 Constitutional: This is a well developed, well nourished patient who is awake, alert, pm1 and in no acute distress. Head/Face: Normocephalic, atraumatic. 11:32 Back: No spinal tenderness. No costovertebral tenderness. Full range of motion. 11:32 Skin: Warm, dry with normal turgor. Normal color with no rashes, no lesions, and no evidence of cellulitis. MS/ Extremity: Pulses equal, no cyanosis. Neurovascular intact. Full, normal range of motion. 11:32 Eyes: Exam is negative for acute changes, Periorbital structures: no acute changes, Extraocular movements: no acute changes, Conjunctiva: no acute changes, no injection. 11:32 ENT: Exam is negative for acute changes, External ear(s): no acute changes, Ear canal(s): no acute changes, TM's: no acute changes, Mouth: no acute changes, Lips: normal, moist, Oral mucosa: normal, pink and intact, moist. 11:32 Cardiovascular: Exam negative for acute changes, Rate: normal, Rhythm: regular, Pulses: no pulse deficits are appreciated. 11:32 Respiratory: Exam negative for acute changes, respiratory distress, shortness of breath. 11:32 Abdomen/GI: Inspection: abdomen appears normal, bruising, is not seen, Palpation: abdomen is soft and non-tender, in all quadrants. 11:32 Musculoskeletal/extremity: Extremities: grossly normal except: noted in the right groin tenderness: There is no evidence of decreased ROM, deformity. 11:32 Neuro: Exam negative for acute changes, Orientation: is normal, Mentation: is normal, Motor: is normal, moves all fours. Vital Signs: 11:30 BP 132 / 95; Pulse 14; Resp 18; Temp 98.2(O); Pulse Ox 100% ; Weight 49.9 kg; Height 4 db ft. 11 in. (149.86 cm); Pain 8/10; 12:00 BP 119 / 70; Pulse 74; Resp 16; Pulse Ox 98% ; Pain 6/10; db 12:30 BP 110 / 66; Pulse 72; Resp 16; Pulse Ox 95% ; db 13:00 BP 107 / 79; Pulse 75; Resp 16; Pulse Ox 95% ; db 14:00 BP 124 / 62; Pulse 68; Resp 16; Pulse Ox 95% on R/A; db 15:00 BP 117 / 72; Pulse 73; Resp 16; Temp 98.2; Pulse Ox 97% ; Pain 0/10; db 11:30 Body Mass Index 22.22 (49.90 kg, 149.86 cm) db MDM: 11:31 Patient medically screened. pm1 11:33 Data reviewed: vital signs. Data interpreted: Pulse oximetry: on room air is 95 %. pm1 Interpretation: normal. 14:46 Counseling: I had a detailed discussion with the patient and/or guardian regarding: the pm1 historical points, exam findings, and any diagnostic results supporting the discharge/admit diagnosis, radiology results, the need for outpatient follow up, a family practitioner, to return to the emergency department if symptoms worsen or persist or if there are any questions or concerns that arise at home. 15:35 ED course: [place] reviewed. pm1 15:35 ED course: Patient and daughter were offered rehab center consultation and transfer. pm1 Patient and the daughter did not want her to go to a rehab center because they had a negative experience in the past with one when she had a pelvic fracture on the left side. 06/13 11:32 Order name: Hip Right 2 View XRAY; Complete Time: 13:28 pm1 06/13 11:32 Order name: Pelvis XRAY; Complete Time: 13:28 pm1 06/13 13:41 Order name: Hip Right Wo Con; Complete Time: 14:25 EDMS Administered Medications: 12:18 Drug: morphine 4 mg Route: IVP; Infused Over: 4 mins; Site: right wrist; db 14:02 Follow up: Response: No adverse reaction db 12:18 Drug: Zofran (Ondansetron) 4 mg Route: IVP; Site: right wrist; db 14:02 Follow up: Response: No adverse reaction db Disposition Summary: 06/13/22 14:49 Discharge Ordered Location: Home pm1 Problem: new pm1 Symptoms: have improved pm1 Condition: Stable pm1 Diagnosis - Acute right obturator ring fracture pm1 Followup: pm1 - With: Emergency Department - When: As needed - Reason: Worsening of condition Followup: pm1 - With: Private Physician - When: 2 - 3 days - Reason: Recheck today's complaints, Continuance of care, Re-evaluation by your physician Discharge Instructions: - Discharge Summary Sheet pm1 - Simple Pelvic Fracture, Adult pm1 Forms: - Medication Reconciliation Form pm1 - Thank You Letter pm1 - Antibiotic Education pm1 - Prescription Opioid Use pm1 Prescriptions: - Tylenol-Codeine #3 300 mg-30 mg Oral - take 2 tablet by ORAL route every 6 hours As needed; 20 tablet; Refills: 0, pm1 Product Selection Permitted Signatures: Dispatcher [employer] EDMS Parish Etienne, LABELING SPECIALIST LABELING SPECIALIST pm1 Shefali Ray, RN RN db
--- NOTE | 2022-06-13 14:50 | ER ---
Nurse's Notes [facility] Name: Neris Lloyd Age: 86 yrs Sex: Female : 1935 Arrival Date: 06/13/2022 Time: 11:31 Bed 19 Private MD: Diagnosis: Acute right obturator ring fracture Presentation: 06/13 11:30 Chief complaint: Patient states: fall 2 days ago brought in by EMS. complaining of db right hip and leg pain and unable to ambulate. Coronavirus screen: Vaccine status: Patient reports receiving the 2nd dose of the covid vaccine. Client denies travel out of the [place] in the last 14 days. At this time, the client does not indicate any symptoms associated with coronavirus-19. Ebola Screen: Patient negative for fever greater than or equal to 101.5 degrees Fahrenheit, and additional compatible Ebola Virus Disease symptoms Patient denies exposure to infectious person. Patient denies travel to an Ebola-affected area in the 21 days before illness onset. No symptoms or risks identified at this time. Initial Sepsis Screen: Does the patient meet any 2 criteria? No. Patient's initial sepsis screen is negative. Does the patient have a suspected source of infection? No. Patient's initial sepsis screen is negative. Risk Assessment: Do you want to hurt yourself or someone else? Patient reports no desire to harm self or others. Onset of symptoms was June 11, 2022. 11:30 Method Of Arrival: EMS: [facility] db 11:30 Acuity: JORGE 3 db Triage Assessment: 11:38 General: Appears in no apparent distress. Behavior is calm, cooperative, appropriate db for age, quiet. Pain: Complains of pain in right hip. Historical: - Allergies: 11:38 Bactrim; db 13:09 Sulfa (Sulfonamide Antibiotics); db - PMHx: 11:38 Anxiety; Atrial Fib; Back pain; Hypertension; ovarian cancer; UTI; db - PSHx: 11:38 Colostomy; Port a cath; db - Immunization history:: Client reports receiving the 2nd dose of the Covid vaccine. - Social history:: Smoking status: Patient denies any tobacco usage or history of. Screenin:08 Abuse screen: Denies threats or abuse. Denies injuries from another. Abuse screen: db Denies threats or abuse. Nutritional screening: No deficits noted. On Difficulty chewing/swallowing?. Tuberculosis screening: No symptoms or risk factors identified. Fall Risk Fall in past 12 months (25 points). No secondary diagnosis (0 pts). IV access (20 points). Ambulatory Aid- Crutches/Cane/Walker (15 pts). Gait- Weak (10 pts.). Mental Status- Oriented to own ability (0 pts). Total Edmond Fall Scale indicates High Risk Score (45 or more points). Fall prevention measures have been instituted. Side Rails Up X 2 Placed Close to Nursing Station Family Present and informed to notify staff if the need to leave the bedside. Assessment: 13:00 Reassessment: Patient appears in no apparent distress at this time. No changes from db previously documented assessment. Patient and/or family updated on plan of care and expected duration. Pain level reassessed. Patient is alert, oriented x 3, equal unlabored respirations, skin warm/dry/pink. Patient denies pain at this time. Patient states feeling better. Patient states symptoms have improved. 13:07 Reassessment: Patient appears in no apparent distress at this time. Patient and/or db family updated on plan of care and expected duration. Pain level reassessed. Patient is alert, oriented x 3, equal unlabored respirations, skin warm/dry/pink. Patient states feeling better. Patient states symptoms have improved. Pain: Complains of pain in right leg Pain currently is 2 out of 10 on a pain scale. Neuro: No deficits noted. Level of Consciousness is awake, alert, obeys commands, Oriented to person, place, time, situation, Appropriate for age. 14:43 Reassessment: Patient appears in no apparent distress at this time. Patient and/or db family updated on plan of care and expected duration. Pain level reassessed. Patient denies pain at this time. Patient states feeling better. Patient states symptoms have improved. Vital Signs: 11:30 BP 132 / 95; Pulse 14; Resp 18; Temp 98.2(O); Pulse Ox 100% ; Weight 49.9 kg; Height 4 db ft. 11 in. (149.86 cm); Pain 8/10; 12:00 BP 119 / 70; Pulse 74; Resp 16; Pulse Ox 98% ; Pain 6/10; db 12:30 BP 110 / 66; Pulse 72; Resp 16; Pulse Ox 95% ; db 13:00 BP 107 / 79; Pulse 75; Resp 16; Pulse Ox 95% ; db 14:00 BP 124 / 62; Pulse 68; Resp 16; Pulse Ox 95% on R/A; db 15:00 BP 117 / 72; Pulse 73; Resp 16; Temp 98.2; Pulse Ox 97% ; Pain 0/10; db 11:30 Body Mass Index 22.22 (49.90 kg, 149.86 cm) db Vitals: 12:30 Cardiac Rhythm Assessment Regular Sinus rhythm. db ED Course: 11:31 Patient arrived in ED. pm1 11:31 Parish Etienne, ENRIQUETA is PHCP. pm1 11:31 Gretchen Maya MD is Attending Physician. pm1 11:36 Shefali Ray, RUBY is Primary Nurse. db 11:38 Triage completed. db 12:08 Patient has correct armband on for positive identification. Fall risk band placed. Bed db in low position. Side rails up X2. 12:08 Missed attempt(s): 22 gauge in left wrist. Bleeding controlled, band aid applied, db catheter tip intact. 12:15 Client placed on continuous cardiac and pulse oximetry monitoring. NIBP monitoring db applied. Warm blanket given. 12:18 Inserted saline lock: 22 gauge in right wrist, using aseptic technique. Blood collected.db 13:00 Hip Right 2 View XRAY In Process Unspecified. EDMS 13:00 Pelvis XRAY In Process Unspecified. EDMS 13:09 Arm band placed on left wrist. Patient placed in an exam room. EKG completed in triage. db Results shown to MD. 13:57 Hip Right Wo Con In Process Unspecified. EDMS 15:37 No provider procedures requiring assistance completed. IV discontinued, intact, db bleeding controlled, No redness/swelling at site. Administered Medications: 12:18 Drug: morphine 4 mg Route: IVP; Infused Over: 4 mins; Site: right wrist; db 14:02 Follow up: Response: No adverse reaction db 12:18 Drug: Zofran (Ondansetron) 4 mg Route: IVP; Site: right wrist; db 14:02 Follow up: Response: No adverse reaction db Medication: 15:38 VIS not applicable for this client. db Outcome: 14:49 Discharge ordered by MD. pm1 15:37 Discharged to home via ambulance. db 15:37 Condition: stable 15:37 Discharge instructions given to patient, family, Instructed on discharge instructions, follow up and referral plans. Prescriptions given X 1. 15:38 Patient left the ED. db Signatures: Dispatcher [employer] Parish Dodge [address] PASSENGER FIRER pm1 Shefali Ray RN RN db Corrections: (The following items were deleted from the chart) 11:40 11:30 Chief complaint: Patient states: fall 2 days ago brought in by EMS db db
[2022-06-13 16:43] VITALS: TEMP 98.2
[2022-06-13 16:53] VITALS: BP 117/72; O2SAT 97
== END 2022-06-13 15:38 | disposition home or self-care (01) ==
LOC: ER 11:24
DX: S32.810A Multiple fractures of pelvis with stable disruption of pelvic ring, initial encounter for closed fracture (principal); Z88.1 Allergy status to other antibiotic agents; Z88.2 Allergy status to sulfonamides
CPT/HCPCS: 73700; 72170; 73502; 96375; 96374; 99284; J2405

== ENCOUNTER 2022-10-16 12:05 | Emergency (ER) | payer OTHER ==
--- OUTSIDE RECORDS SUMMARY | 2022-10-16 12:32 | XMS REPORT | Clinical Summary ---
:[address] [facility] MD [facility] Address [address] [place] [address] Care Team Providers Name Role Phone Mayte Kaur MD Unavailable Almita Batres MD Primary Care Provider Allergies Active Allergy Reactions Severity Noted Date Comments Sulfamethoxazole-Trime Hives, Shortness Of High 07/30/2020 thoprim Breath Metoprolol Succinate Other (See Comments) 07/30/2020 Brachycardia, hypotension Medications Medication Sig Dispensed Refills Start End Date Status Date clonazePAM Take 1 tablet 0 Activ e (KlonoPIN) 1 mg (1 mg) by 8 tablet mouth twice daily. docusate sodium Take 1 0 Acti ve (COLACE) 250 mg capsule (250 capsule mg) by mouth twice daily. umeclidinium-vilante Inhale 1 puff 0 [...] Gastroesophageal reflux disease pregabalin (LYRICA) Take 1 60 capsule 2 Active 50 mg capsule (50 3 capsuleIndications: mg) by mouth Chronic pain twice daily. acetaminophen Take 1 tablet 0 Ac tive (TYLENOL) 500 mg (500 mg) by tablet mouth every 6 (six) hours as needed for mild pain. ondansetron (Zofran) Take 1 tablet 30 tablet 3 Active 8 mg (8 mg) by 3 tabletIndications: mouth every 8 Metastatic cancer to (eight) hours the peritoneum, as needed for Nausea nausea or vomiting. prochlorperazine Take 1 tablet 60 tablet 3 Active (Compazine) 10 mg (10 mg) by 3 tabletIndications: mouth every 6 Serous (six) hours cystadenocarcinoma, as needed for NOS of ovary nausea. <Bilateral>, Nausea cholecalciferol, Take 1 tablet 0 09/22/19 Discontinued vitamin D3, 25 mcg (1,000 Units) 23 (Not Applicable) (1,000 unit) tablet by mouth every morning. methocarbamol Take 0.5 60 tablet 0 01/28/20 Discon tinued (ROBAXIN) 500 mg tablets (250 1 22 (Therapy tabletIndications: mg) by mouth completed) Chronic back pain, every 8 Chronic pain (eight) hours as needed for muscle spasms (pain). HYDROcodone-acetamin Take 0.5 30 tablet 0 10/28/19 Discontinued ophen (NORCO) 5 tablets by 1 22 (Th erapy mg-325 mg per mouth every 8 co mpleted) tabletIndications: (eight) hours Chronic back pain as needed for severe pain. ciprofloxacin HCl Take 1 tablet 10 tablet [...] 2 22 tabletIndications: mouth twice Dysuria daily. pregabalin (LYRICA) Take 1 90 capsule 2 09/05/19 Discontinued 50 mg capsule (50 2 23 capsuleIndications: mg) by mouth Chronic pain 3 (three) times a day. ondansetron (Zofran) Take 1 tablet 30 tablet 3 10/13 Discontinued 8 mg (8 mg) by 2 23 (Reorder) tabletIndications: mouth every 8 Metastatic cancer to (eight) hours the peritoneum, as needed for Neoplasm, malignant nausea or of ovary <Bilateral> vomiting. cyclophosphamide Take 1 21 capsule 0 05/12/20 Di scontinued (CYTOXAN) 50 mg capsule (50 2 22 (R eorder) capsuleIndications: mg) by mouth Neoplasm, malignant daily for 21 of ovary doses. 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 2 22 (Not Applicable) 500 mg tablet cyclophosphamide Take 1 21 capsule 0 06/02/20 Di scontinued (CYTOXAN) 50 mg capsule (50 2 22 (R eorder) capsuleIndications: mg) by mouth Metastatic cancer to daily for 21 the peritoneum, doses. 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> cyclophosphamide Take 1 21 capsule 0 06/26/20 Ex pired (CYTOXAN) 50 mg capsule (50 2 22 capsuleIndications: mg) by mouth Serous daily for 21 cystadenocarcinoma, doses. 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 Chronic back pain, Remove old Pain in right patch(es) shoulder before replacing new patch(es). azithromycin daily. 0 09/22/19 Discont inued (ZITHROMAX) 250 mg 2 23 ( Not Applicable) tablet cyclophosphamide Take 1 30 capsule 0 08/30/19 Ex pired (CYTOXAN) 50 mg capsule (50 2 23 capsuleIndications: mg) by mouth Metastatic cancer to daily for 30 the peritoneum, doses. 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 Please allow Susanne Haynes (daughter) to accompany pt permanently for visits as pt gets mild confusion and has difficulty providing adequate history. Please schedule port access with labs pe r patient request. 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 Overview: Added automatically from request for truong lizarraga [id number] Rheumatoid arthritis with rheumatoid factor of unspeci fied site without 09/10/2020 organ or systems involvement Overview: Added automatically from request for truong elham [id number] Cardiomegaly 07/30/2020 Pulmonary hypertension 07/30/2020 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 07/30/2020 Colostomy status 07/30/2020 Frailty 07/30/2020 Chronic pain 07/30/2020 Opioid abuse continuous use 07/30/2020 H/O: pulmonary embolus 07/30/2020 longterm current use of anticoagulant 07/30/2020 Gastroesophageal reflux disease 07/30/2020 Herpes zoster 07/30/2020 Deep venous thrombosis 07/30/2020 Cancer associated pain 07/30/2020 Coronary atherosclerosis of [place] coronary artery 05/2020 Essential hypertension 07/29/2020 Mixed [...] Encounters Date Type Specialty Care Team Description 10/13/2022 Clinical Support Infusion Services Adriane Paul PA Serous Carline, Mirasol cystadenoca Dinorah franks, RN 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> 10/13/2022 Follow-Up Gynecology Almita Batres cysta denocarcinoma, 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> (Primary Dx); MD Chris 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; Leana Morales PA Nausea; Memory loss; Fatigue; Weakness; Weight loss; Decrease in michael etite 10/13/2022 Clinical Support Infusion Services Almita Batres, Dallas Villalta RN 10/13/2022 Case Management Hong Lee RN 10/13/2022 Travel 10/12/2022 Orders Only Gynecology Leana Morales PA 10/12/2022 Orders Only Gynecology Almita Batres Serous cysta denocarcinoma, 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> (Primary Dx); MD Chris Metastatic canc er to the peritoneum 09/28/2022 Clinical Support Infusion Services Almita Batres MD Pickens, Mirasol A, RN 09/28/2022 Telephone Gynecology Adriane Paul PA 09/28/2022 Travel 09/22/2022 Infusion Infusion Services Almita Batres Metasta tic cancer to the peritoneum (Primary Dx); MD Chris Serous cystadenocarcinoma, 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> Svetlana Rose RN 09/22/2022 Follow-Up Gynecology Almita Batres Serous cysta denocarcinoma, 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> (Primary Dx); MD Chris 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; Adriane Paul PA Encounter fo r examination prior to antineoplastic chemotherapy; Cancer associat ed pain; Agranulocytosis secondary to cancer chemotherapy; Antineoplastic chemotherapy induced anemia; Elevated cancer antigen 125 (CA 125) 09/22/2022 Clinical Support Infusion Services Almita Batres MD Venegas, Carrie A, RN 09/22/2022 Travel 09/20/2022 Orders Only Gynecology Almita Batres Serous cysta denocarcinoma, 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> (Primary Dx); MD Chris Metastatic canc er to the peritoneum 09/08/2022 Telephone Pain Medicine Meche Crystal RN 09/07/2022 Procedure visit Pain Medicine Jacek Kimball, Chron ic pain (Primary Dx); Cancer associat ed pain; Lumbar facet emmett int pain 09/07/2022 Travel 09/04/2022 Refill Pain Medicine Jacek Kimball, Chronic pain MD 09/01/2022 Infusion Infusion Services Almita Batres Metastdinorah tic cancer to the peritoneum (Primary Dx); MD Chris Serous cystadenocarcinoma, 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> Haily Joseph, RN 09/01/2022 Procedure visit Pain Medicine Jacek Kimball, Chron ic pain (Primary Dx) 09/01/2022 Follow-Up Gynecology Almita Batres Serous cysta denocarcinoma, 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>; MD Chris Metastatic canc er to the peritoneum 09/01/2022 Clinical Support Infusion Services Almita Batres, Kelsie Crawford, RN 09/01/2022 Travel 08/31/2022 Orders Only Gynecology Leana Morales PA Serous cystadenocarcin sindhu, 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> (Pr imary Dx) 08/31/2022 Orders Only Gynecology Almita Batres Serous cysta denocarcinoma, 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> (Primary Dx); MD Chris Metastatic canc er to the peritoneum 08/03/2022 Orders Only Pain Medicine Jacek Kimball, Chronic pain (Primary MD Dx) 08/01/2022 Telephone Pain Medicine Gladis Moya, RUBY 07/28/2022 Follow-Up Gynecology Almita Batres Serous cysta denocarcinoma, 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> (Primary Dx); MD Chris Metastatic canc er to the peritoneum; Personal histor y of fall; Fracture of pub ic rami <Right side; Sequela>; Frailty; Encounter for e xamination prior to antineoplastic chemotherapy 07/28/2022 Clinical Support Infusion Services Almita Batres MD Russell, Laura W, RN 07/28/2022 Travel 07/27/2022 Ancillary Radiology Almita Batres Encounter fo ramon Perez MD follow-up exami [facility] after completed treatment for malignant neopl asm 07/27/2022 Travel 07/21/2022 Follow-Up Pain Medicine Jacek Kimball, Chronic back pain (Primary Dx); Pain in right s houlder 07/21/2022 Travel 07/18/2022 Orders Only Gynecology Leana Morales PA Encounter for follow-up exami nation after completed treatment for malignant neopl asm 06/27/2022 Orders Only Gynecology Adriane Paul PA 06/14/2022 Telephone Surgical Oncology Karla Williamson RN 06/02/2022 Office Visit Gynecology Almita Batres Serous cysta denocarcinoma, 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> (Primary Dx); MD Chris 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; Leana Morales PA Encounter for examination prior to antineoplastic chemotherapy; Rash; Dental caries, not otherwise specified 06/02/2022 Clinical Support Infusion Services Almita Batres MD Silvan, Maureen Faith, RUBY 06/02/2022 Travel 05/12/2022 Office Visit Gynecology Adriane Paul PA 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> (Primary Dx); Leana Morales PA 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; Encounter for e xamination prior to antineoplastic chemotherapy; Tinnitus of rig ht ear 05/12/2022 Clinical Support Infusion Services Almita Batres MD Pakeltis, Melody J, RN 05/12/2022 Travel 05/12/2022 Orders Only Gynecology Leana Morales PA Neoplasm, malignant of ovary <Bilatera l> (Primary Dx) 05/12/2022 Orders Only Gynecology Almita Batres, ma lignant of ovary <Bilateral> (Primary Dx); MD Chris Metastatic canc er to the peritoneum 04/21/2022 Infusion Infusion Services Almita Batres Metasta tic cancer to the peritoneum (Primary Dx); MD Chris 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> Tammie Hernández RN 04/21/2022 Office Visit Gynecology Almita Batres Neoplasm, ma lignant of ovary <Bilateral> (Primary Dx); MD Chris Metastatic canc er to the peritoneum; Encounter for e xamination prior to antineoplastic chemotherapy; Dysuria 04/21/2022 Orders Only Pain Medicine Jacek Kimball Chronic pain 04/21/2022 Travel 04/21/2022 Refill Pain Medicine Jacek Kimball Chronic pain 04/20/2022 [facility] Radiology Gaby Escobar, PATIENT SERVICE COORDINATOR Metastati c cancer to the peritoneum; Encounter Encounter for e xamination prior to antineoplastic chemotherapy; Neoplasm, shelby nant of ovary <Bilateral> 04/20/2022 Hospital Vascular Access Almita Batres Encounter and Procedures MD Amita Perez Bhumarat S, RN 04/20/2022 Hospital Lab Gaby Escobar, PATIENT SERVICE COORDINATOR Metastati c cancer to the peritoneum; Encounter Neoplasm, shelby mesat of ovary <Bilateral>; Encounter for e xamination prior to antineoplastic chemotherapy 04/20/2022 Travel 03/24/2022 Infusion Infusion Services Almita Batres Metasta tic cancer to the peritoneum (Primary Dx); MD Chris 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> Monica Andrews, RN 03/24/2022 Office Visit Gynecology Adriane Paul, PA Metastatic c ancer to the peritoneum; Encounter for e xamination prior to antineoplastic chemotherapy; Neoplasm, shelby mesat of ovary <Bilateral> 03/24/2022 Clinical Support Infusion Services Almita Batres MD 03/24/2022 Orders Only Gynecology Almita Batres Neoplasm, ma lignant of ovary <Bilateral> (Primary Dx); MD Chris Metastatic canc er to the peritoneum 03/24/2022 Travel 02/24/2022 Infusion Infusion Services Adriane Paul P A 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 (Alicia brian Dx); Dallas Crowley Neoplasm, m alignant of ovary <Bilateral> Dinorah, RN 02/24/2022 Office Visit Gynecology Almita Batres Neoplasm, ma lignant of ovary <Bilateral> (Primary Dx); MD Chris 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; Adriane Paul PA Encounter fo r examination prior to antineoplastic chemotherapy; Cancer associat ed pain 02/24/2022 Clinical Support Infusion Services Almita Batres MD 02/24/2022 Orders Only Gynecology Almita Batres, ma Da MD ovary <Bilatera l> (Primary Dx) 02/24/2022 Travel 02/24/2022 Orders Only Gynecology Almita Batres, ma lignant of ovary <Bilateral> (Primary Dx); MD Chris Metastatic canc er to the peritoneum 02/22/2022 Refill Pain Medicine Jacek Kimball, Chronic pain 02/17/2022 Clinical Support Infusion Services Almita Batres MD 02/17/2022 Procedure visit Pain Medicine Jacek Kimball, Chron ic back pain (Primary Dx); Cancer associat ed pain; Chronic pain 02/17/2022 Orders Only Gynecology Adriane Paul PA Neoplasm, ma lignant of ovary <Bilatera l> (Primary Dx) 02/17/2022 Telephone Surgical Oncology Karla Williamson RN 02/17/2022 Travel 02/01/2022 Telephone Pain Medicine eMche Crystal RN 01/27/2022 Infusion Infusion Services Nick Bustillo PA 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 (Alicia brian Dx); Hazel Lewis RN 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> 01/27/2022 Office Visit Gynecology Almita Batres Neoplasm, ma lignant of ovary <Bilateral> (Primary Dx); MD Chris Metastatic canc er to the peritoneum; Encounter for e xamination prior to antineoplastic chemotherapy 01/27/2022 Office Visit Pain Medicine Jacek Kimball, Chronic back pain (Primary Dx); Chronic pain 01/27/2022 Clinical Support Infusion Services Almita Batres MD 01/27/2022 Travel 01/26/2022 Orders Only Gynecology Almita Batres, parker Roberson MD ovary <Bilatera l> (Primary Dx) 01/24/2022 Orders Only Gynecology Nick Bustillo PA 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> (Primary Dx); Metastatic canc er to the peritoneum 01/23/2022 Orders Only Gynecology Nick Bustillo PA 01/23/2022 Orders Only Gynecology Nick Bustillo PA 01/17/2022 Hospital Radiology Adriane Paul PA Malignant ne oplasm of unspecified ovary; Encounter Metastatic canc er to the peritoneum; Encounter for e xamination prior to antineoplastic chemotherapy; Neoplasm, malig nant of ovary <Bilateral> 01/17/2022 Travel 01/16/2022 Orders Only Gynecology Nick Bustillo PA 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> (Primary Dx); Metastatic canc er to the peritoneum 01/13/2022 Orders Only Almita Vargas MD 11/22/2021 Orders Only Gynecology Nick Bustillo PA 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> (Primary Dx); Metastatic canc er to the peritoneum 11/22/2021 Orders Only Gynecology Adriane Paul PA Malignant ne oplasm of unspecified ovary (Primary Dx); Metastatic canc er to the peritoneum; Encounter for e xamination prior to antineoplastic chemotherapy; Neoplasm, malig nant of ovary <Bilateral> 11/04/2021 Infusion Infusion Services Nick Bustillo PA [place] static cancer to the peritoneum (Primary Dx); Neoplasm, malig nant of ovary <Bilateral> 11/04/2021 Office Visit Gynecology Almita Batres Neoplasm, ma lignant of ovary <Bilateral> (Primary Dx); MD Chris Malignant neoplasm of unspecified ovary; Nick Bustillo PA Metastati c cancer to the peritoneum; Encounter for e xamination prior to antineoplastic chemotherapy 11/04/2021 Clinical Support Infusion Services Almita Batres ignolayinka neoplasm artie Perez MD unspecified ova ry 11/04/2021 Travel 11/03/2021 Orders Only Gynecology Almita Batres Neoplasm, ma lignant of ovary <Bilateral> (Primary Dx); MD Chris Metastatic canc er to the peritoneum 10/27/2021 Office Visit Pain Medicine Jacek Kimball, Chronic pain (Primary Dx); Chronic back pa in 10/27/2021 Travel after 10/16/2021 Immunizations Name Administration Dates Next Due Pfizer SARS-CoV-2 Vaccination (Purple Cap) 04/18/2021 Surgical History Surgery Date Site/Laterality Comments COLON SURGERY 02/17/2018 - colostomy 03/19/2018 BACK SURGERY 08/20/2014 - 08/19/2015 HYSTERECTOMY 08/20/1979 - 08/19/1980 CATARACT EXTRACTION, BILATERAL SD INSJ TUNNELED CTR VAD 09/30/2020 Neck/Right Procedu re: PORT-A-CATH W/SUBQ PORT AGE 5 YR/> PLACEMENT ; Surgeon: Conner Hogan MD; Lo cation: OR; Service : SURG ONC - PORT Medical devices from this surgery are in t he Medical Devices section. SD US VASC ACCESS SITS VSL 09/30/2020 Neck/Right Proce dure: US GUIDANCE PATENCY NDL ENTRY WITH EVAL OF P OTENTIAL ACCESS SITES, RE ALTIME US VISUALIZATION OF VASC NEEDLE ENTRY; Reynolds rgeon: Conner Hogan MD; Location: [facility]; Service: SURG ON C - PORT Medical devices from this surgery are in t he Medical Devices section. SD FLUORO CENTRAL VENOUS 09/30/2020 Neck/Right Procedu re: FLUORO GUIDANCE ACCESS DEV PLACEMENT FOR CENTRAL VENOUS ACCESS DEVICE PLACEMENT , REPLACEMENT, OR REMOVAL; Surgeon: Conner Hogan MD; Location: [facility] OR; Service: SURG ON C - PORT Medical devices from this surgery are in t he Medical Devices section. Medical History Medical History Date Comments Hypertension no medication for ap proximately 1 year. 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 Gastric reflux 1995 esomeprazole Gastric ulcer 1995 Osteoporosis 2012 Arthritis 1970 Anxiety 2012 clonazepam Herpes zoster 04/2020 Ovarian cancer 02/2018 Family History Medical History Relation Name Comments Breast cancer Mother Damaris Arias Relation Name Status Comments Mother Damaris Arias Social History Tobacco Use Types Packs/Day Years Used Date Smoking Tobacco: Never Smokeless Tobacco: Never Alcohol Use Standard Drinks/Week Comments Not Currently 0 (1 standard drink = 0.6 oz pure alcoho l) Sex Assigned at Date Recorded Female 07/28/2020 4:40 PM [employer] Job Start Date Occupation Industry Not on file Not on file Not on file COVID-19 Exposure Response Date Recorded In the last 10 days, have you been in contact with No / Unsu re 10/13/2022 1:18 PM CHIEF DISPATCHER someone who was confirmed or suspected to have Coronavirus/COVID-19? Obstetrics History Para Term AB IAB SAB Ectopic Multiple Living Live Births 2 2 2 Date Outcome GA Total Labor/2nd/3rd Weight Sex Delivery Anes PTL [place] A 1 A5 Name Clin Labor Para Para Last Filed Vital Signs Vital Sign Reading Time Taken Comments Blood Pressure 139/83 10/13/2022 3:26 PM CHIEF DISPATCHER Pulse 112 10/13/2022 3:26 PM CHIEF DISPATCHER Temperature 36.6 C (97.9 F) 10/13/2022 3:26 PM CHIEF DISPATCHER Respiratory Rate 18 10/13/2022 3:26 PM CHIEF DISPATCHER Oxygen Saturation 100% 09/07/2022 1:12 PM CHIEF DISPATCHER Inhaled Oxygen Concentration - - Weight 46.7 kg (102 lb 15.3 oz) 10/13/2022 2:27 PM CHIEF DISPATCHER Height 146 cm (4' 9.48") 01/27/2022 12:45 PM CDT Body Mass Index 21.91 01/27/2022 12:45 PM CDT Plan of Treatment Date Type Specialty Care Team Description 10/16/2022 Ancillary Procedure Radiology Phan Batres MD [address] [place] [address] [phone] (Wo rk) 10/17/2022 Ancillary Procedure Radiology Phan Batres MD [address] [place] [address] [phone] (Wo rk) 10/20/2022 Nutrition Nutrition Almita Batres MD [address] [place] [id number] Diandra Abraham, RD [address] [place] [id number] 11/20/2022 Follow-Up Pain Medicine Jacek Kimball MD [address] [place] [address] [phone] (Wo rk) Health Maintenance Due Date Last Done Comments COVID-19 Vaccination (2 - Pfizer risk series) 05/09/2021 Medical Devices Implanted Type Area Decision Analyst Device Identifier Shelf Model / Expiration Serial / Date Lot Pwrport Clearvue Slim 6fr W/Smth Septum - Sna Port Right: BARD PERIPHERAL [id number] 10/17/2021 [id number] / Implanted: Qty: 1 on 09/30/2020 by Conner Hogan MD at [facility] Internal VASCULAR NA / Jugular [id number] Description: Catheter length-21 CM Procedures Procedure Name Priority Date/Time Associated Diagnosis Comme nts CALCIUM LEVEL TOTAL Routine 10/13/2022 1:56 Metastatic cancer to Results for this PM CHIEF DISPATCHER the peritoneum procedure are in Serous the results cystadenocarcinoma, section. 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> .GLOMERULAR FILTRATION Routine 10/13/2022 1:56 Metastatic canc er to Results for this RATE PM CHIEF DISPATCHER the peritoneum procedure are in Serous the results cystadenocarcinoma, section. 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> SERUM CREATININE Routine 10/13/2022 1:56 Metastatic cancer to Results for this PM CHIEF DISPATCHER the peritoneum procedure are in Serous the results cystadenocarcinoma, section. 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> ELECTROLYTE PANEL Routine 10/13/2022 1:56 Metastatic cancer to Results for this PM CHIEF DISPATCHER the peritoneum procedure are in Serous the results cystadenocarcinoma, section. 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> BLOOD UREA NITROGEN Routine 10/13/2022 1:56 Metastatic cancer to Results for this PM CHIEF DISPATCHER the peritoneum procedure are in Serous the results cystadenocarcinoma, section. 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> GLUCOSE LEVEL Routine 10/13/2022 1:56 Metastatic cancer to Res ults for this PM CHIEF DISPATCHER the peritoneum procedure are in Serous the results cystadenocarcinoma, section. 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> MANUAL DIFFERENTIAL Routine 10/13/2022 1:56 Metastatic cancer to Results for this PM CHIEF DISPATCHER the peritoneum procedure are in Serous the results cystadenocarcinoma, section. 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> Results CBC Routine 10/13/2022 1:56 Metastatic cancer to Resu lts for this PM CHIEF DISPATCHER the peritoneum procedure are in Serous the results cystadenocarcinoma, section. 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> ASPARTATE Routine 10/13/2022 1:56 Metastatic cancer to Resu lts for this AMINOTRANSFERASE PM CHIEF DISPATCHER the peritoneum procedure are in Serous the results cystadenocarcinoma, section. 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> ALANINE Routine 10/13/2022 1:56 Metastatic cancer to Resu lts for this AMINOTRANSFERASE PM CHIEF DISPATCHER the peritoneum procedure are in Serous the results cystadenocarcinoma, section. 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> BILIRUBIN TOTAL Routine 10/13/2022 1:56 Metastatic cancer to R esults for this PM CHIEF DISPATCHER the peritoneum procedure are in Serous the results cystadenocarcinoma, section. 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> URINALYSIS MICROSCOPIC Routine 10/13/2022 1:19 Re sults for this EXAM PM CHIEF DISPATCHER procedure are i n the results section. URINALYSIS WITH Routine 10/13/2022 1:19 Metastatic cancer to R esults for this MICROSCOPIC IF PM CHIEF DISPATCHER the peritoneum procedure are in INDICATED Serous the results cystadenocarcinoma, section. 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> CALCIUM LEVEL TOTAL Routine 09/28/2022 11:02 Metastatic cancer to Results for this AM CHIEF DISPATCHER the peritoneum procedure are in Serous the results cystadenocarcinoma, section. 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> .GLOMERULAR FILTRATION Routine 09/28/2022 11:02 Metastatic can cer to Results for this RATE AM CHIEF DISPATCHER the peritoneum procedure are in Serous the results cystadenocarcinoma, section. 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 PAIN MANAGEMENT Routine 09/01/2022 11:27 Chronic pain Results for this ULTRASOUND AM CHIEF DISPATCHER procedure are i n the results section. 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> ASPARTATE Routine 09/01/2022 9:39 Metastatic cancer to Resu lts for this AMINOTRANSFERASE AM CHIEF DISPATCHER the peritoneum procedure are in Serous the results cystadenocarcinoma, section. 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> ALANINE Routine 09/01/2022 9:39 Metastatic cancer to Resu lts for this AMINOTRANSFERASE AM CHIEF DISPATCHER the peritoneum procedure are in Serous the results cystadenocarcinoma, section. 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> BILIRUBIN TOTAL Routine 09/01/2022 9:39 Metastatic cancer to R esults for this AM CHIEF DISPATCHER the peritoneum procedure are in Serous the results cystadenocarcinoma, section. 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> BLOOD UREA NITROGEN Routine 07/28/2022 10:13 Metastatic cancer to Results for this AM CHIEF DISPATCHER the peritoneum procedure are in Serous the results cystadenocarcinoma, section. 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> MANUAL DIFFERENTIAL Routine 07/28/2022 10:13 Metastatic cancer to Results for this AM CHIEF DISPATCHER the peritoneum procedure are in Serous the results cystadenocarcinoma, section. 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> Results CBC Routine 07/28/2022 10:13 Metastatic cancer to Res ults for this AM CHIEF DISPATCHER the peritoneum procedure are in Serous the results cystadenocarcinoma, section. 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 malignant neoplasm POC CREATININE Routine 07/27/2022 10:51 Results f or this AM CHIEF DISPATCHER procedure are i n the results section. URINALYSIS WITH Routine 06/02/2022 2:49 Neoplasm, malignant [...] resu lts of ovary <Bilateral> section . after 10/16/2021 Results .Serum Creatinine (10/13/2022 1:56 PM CHIEF DISPATCHER)Only the most recent of13 results within the time period is included. athologist Signature Creatinine 0.67 0.51 - 0.95 [place] mg/dL Comment: Testing performed at [facility], [address] [place] [address] Specimen Anatomical Collection Method Collection Time Receive d Time (Source) Location / / Volume Laterality Blood 10/13/2022 1:56 PM 2:00 CHIEF DISPATCHER PM CHIEF DISPATCHER Almita Batres MD LAB BLOOD ORDERABLES Performing Organization Address City/State/[place] [address] [place] [address] (ABNORMAL) .CBC (10/13/2022 1:56 PM CHIEF DISPATCHER)Only the most recent of13 resultswithin the time period is included. athologist Signature WBC 7.9 4.0 - 11.0 [facility] K/uL Comment: All components of the CBC perfo rmed at [facility], [address] [place] [address] RBC 3.18 (L) 4.00 - 5.50 M/uL [facility] Comment: As part of CBC testing performe d at [facility], [address] [place] [address] Hgb 8.0 (L) 12.0 - 16.0 gm/dL [place] Comment: As part of CBC or as an individ ual orderable testing performed at [facility], [address] [place] [address] Hct 26.0 (L) 37.0 - 47.0 % [place] Comment: As part of CBC or as an individ ual orderable testing performed at [facility], [address] [place] [address] MCV 82 82 - 98 fL [place] Comment: As part of CBC testing performe d at [facility], [address] [place] [address] MCH 25.2 (L) 27.0 - 31.0 pg [place] Comment: As part of CBC testing performe d at [facility], [address] [place] [address] MCHC 30.8 (L) 31.0 - 36.0 gm/dL [place] Comment: As part of CBC testing performe d at [facility], [address] [place] [address] RDW-SD 55.9 (H) 35.1 - 46.3 fL [place] Comment: As part of CBC testing performe d at [facility], [address] [place] [address] RDW-CV 19.8 (H) 12.0 - 15.5 % [place] Comment: As part of CBC testing performe d at [facility], [address] [place] [address] Platelet count 206 140 - 440 K/uL [place] Comment: As part of CBC or as an individ ual orderable testing performed at [facility], [address] [place] [address] MPV 10.7 (H) 4.0 - 10.4 fL [place] Comment: As part of CBC testing performe d at [facility], [address] [place] [address] Specimen Anatomical Collection Method Collection Time Receive d Time (Source) Location / / Volume Laterality Blood 10/13/2022 1:56 PM 3 2:00 CHIEF DISPATCHER PM CHIEF DISPATCHER Almita Batres MD LAB BLOOD ORDERABLES Performing Organization Address City/State/ZIP Code Phon e Number MELISSA PORRAS MD [place] [phone] [address] [place] [address] Glomerular Filtration Rate (10/13/2022 1:56 PM CHIEF DISPATCHER)Only the most recent of13 resultswithin the time period is included. athologist Signature eGFR 85 >=60 [place] mL/min/1.73 sq. m Comment: The eGFRcr is [...] fulfill criteria for CKD. Testing performed at [facility], [address] [place] [address] Specimen Anatomical Collection Method Collection Time Receive d Time (Source) Location / / Volume Laterality Blood 10/13/2022 1:56 PM 2:00 CHIEF DISPATCHER PM CHIEF DISPATCHER Almita Batres MD LAB BLOOD ORDERABLES Performing Organization Address City/State/ZIP Code Phon e Number [place] [address] (ABNORMAL) Differential (10/13/2022 1:56 PM CHIEF DISPATCHER)Only the most recent of13 resultswithin the time period is included. athologist Signature Neutrophil % 81.9 (H) 42.0 - [place] 66.0 % Comment: All components of the Different ial performed at [facility], [address] [place] [address] Lymphocyte % 7.1 (L) 24.0 - 44.0 % [place] Comment: As part of Differential, testin g performed at [facility], [address] [place] [address] Monocyte % 10.6 (H) 2.0 - 7.0 % [place] Comment: As part of Differential, testin g performed at [facility], [address] [place] [address] Eosinophil % 0.1 (L) 1.0 - 4.0 % [facility] Comment: As part of Differential, testin g performed at [facility], [address] [place] [address] Basophil % 0.3 0.0 - 1.0 % [facility] Comment: As part of Differential, testin g performed at [facility], [address] [place] [address] Neutrophil Abs 6.46 1.70 - 7.30 K/uL [place] Comment: As part of Differential, testin g performed at [facility], [address] [place] [address] Lymphocyte Abs 0.56 (L) 1.00 - 4.80 K/uL [place] Comment: As part of Differential, testin g performed at [facility], [address] [place] [address] Monocyte Abs 0.84 (H) 0.08 - 0.70 K/uL [facility] Comment: As part of Differential, testin g performed at [facility], [address] [place] [place] [address],[place], [place] [id number] Eosinophil Abs 0.01 (L) 0.04 - 0.40 K/uL [place] Comment: As part of Differential, testin g performed at [facility], [address] [place] [place] [address],[place], [place] [id number] Basophil Abs 0.02 0.00 - 0.10 K/uL [place] Comment: As part of Differential, testin g performed at [facility], [address] [place] [address] Specimen Anatomical Collection Method Collection Time Receive d Time (Source) Location / / Volume Laterality Blood 10/13/2022 1:56 PM 3 2:00 CHIEF DISPATCHER PM CHIEF DISPATCHER Almita Batres MD LAB BLOOD ORDERABLES Performing Organization Address [facility] [place] Phon e Number [address] (ABNORMAL) [place] 125 (10/13/2022 1:56 PM CHIEF DISPATCHER)Only the most recent of12 results within the time period is included. P athologist Signature [place] 125 350.2 (H) <=38.0 U/mL [place] Comment: Results greater than 11,500.0 U/L may no t be reliable due to matrix effect with extended dilution as it exceeds the car barn laborer s recommended limit. Caution should be exercised when interpreting such values and done in conjunction with cli nical context. Reference intervals are not available fo r male patients. Results should be interpreted in conjunction with clinical context. This test is measured by electrochemilum inescence immunoassay on Katherine Nilesh immunoassay analyzers. Results obtained in different methods are not interchangeable. Testing performed at [facility], [address] [place] [address] Specimen Anatomical Collection Method Collection Time Receive d Time (Source) Location / / Volume Laterality Blood 10/13/2022 1:56 PM 3 2:00 CHIEF DISPATCHER PM CHIEF DISPATCHER Almita Batres MD LAB BLOOD ORDERABLES Performing Organization Address City/[facility] [place] Phon e Number [place] [phone] [place], [place] [address]e [place] BUN (10/13/2022 1:56 PM CHIEF DISPATCHER)Only the most recent of13 resultswithin the time period is included. athologist Signature BUN 14 6 - 23 mg/dL [place] Comment: Testing performed at [facility], [address] [place] [address] Specimen Anatomical Collection Method Collection Time Receive d Time (Source) Location / / Volume Laterality Blood 10/13/2022 1:56 PM 3 2:00 CHIEF DISPATCHER PM CHIEF DISPATCHER Almita Batres MD LAB BLOOD ORDERABLES Performing Organization Address City/[facility] Code Phon e Number [address] ALT (10/13/2022 1:56 PM CHIEF DISPATCHER)Only the most recent of13 resultswithin the time period is included. athologist Signature ALT 6 <=33 U/L [place] Comment: Testing performed at [facility], [address] [place], [place] [id number] Specimen Anatomical Collection Method Collection Time Receive d Time (Source) Location / / Volume Laterality Blood 10/13/2022 1:56 PM 3 2:00 CHIEF DISPATCHER PM CHIEF DISPATCHER Almita Batres MD LAB BLOOD ORDERABLES Performing Organization Address City/[facility] Code Phon e Number [address] AST (10/13/2022 1:56 PM CHIEF DISPATCHER)Only the most recent of13 resultswithin the time period is included. athologist Signature AST 21 <=32 U/L [place] Comment: Testing performed at [facility], [address] [place] [address] Specimen Anatomical Collection Method Collection Time Receive d Time (Source) Location / / Volume Laterality Blood 10/13/2022 1:56 PM 3 2:00 CHIEF DISPATCHER PM CHIEF DISPATCHER Almita Batres MD LAB BLOOD ORDERABLES Performing Organization Address City/State/[place] [address] [place] [address] (ABNORMAL) Glucose Level (10/13/2022 1:56 PM CHIEF DISPATCHER)Only the most recent of13 resultswithin the time period is included. athologist Signature Glucose Level 109 (H) 70 - 99 [place] mg/dL Comment: Effective 03/15/16, the glucose reference intervals have been updated based on [place] [employer] guidelines (Standards of Medical Care in Diabetes 2016. Diabetes Care 2016; 39: S13-S22). Fasting blood glucose: Normal: 70-99 mg/dL Impaired fasting glucose (increased risk for diabetes or pre-diabetes): 100- 125 mg/dL Diabetes mellitus: >/=126 mg/dL Random blood glucose: Normal: 70-199 mg/dL Note: Random glucose >100 mg/dL is assoc iated with increased risk for diabetes Testing performed at [facility], [address] [place], [place] [id number] Specimen Anatomical Collection Method Collection Time Receive d Time (Source) Location / / Volume Laterality Blood 10/13/2022 1:56 PM 3 2:00 CHIEF DISPATCHER PM CHIEF DISPATCHER Almita Batres MD LAB BLOOD ORDERABLES Performing Organization Address City/State/ZIP Code Phon e Number [place] [phone] [place] [place] [address] Calcium Level (10/13/2022 1:56 PM CHIEF DISPATCHER)Only the most recent of13 resultswithin the time period is included. athologist Signature Calcium Lvl 9.2 8.4 - 10.2 [place] mg/dL Comment: Testing performed at [facility], [address] [place] [address] Specimen Anatomical Collection Method Collection Time Receive d Time (Source) Location / / Volume Laterality Blood 10/13/2022 1:56 PM 3 2:00 CHIEF DISPATCHER PM CHIEF DISPATCHER Almita Batres MD LAB BLOOD ORDERABLES Performing Organization Address City/State/ZIP Code Phon e Number [address] Bilirubin, total (10/13/2022 1:56 PM CHIEF DISPATCHER)Only the most recent of11 resultswithin the time period is included. athologist Signature Bili Total 0.5 <=1.2 mg/dL [place] Comment: Indocyanine Green (ICG) may cause falsel y elevated bilirubin results. Total and direct bilirubin must not be measured from samples containing indocyanine green. False elevation of total bilirubin can b e seen in patients with IgG concentrations above 28 g/L. Testing performed at [facility], [address] [place] [address] Specimen Anatomical Collection Method Collection Time Receive d Time (Source) Location / / Volume Laterality Blood 10/13/2022 1:56 PM 2:00 CHIEF DISPATCHER PM CHIEF DISPATCHER Almita Batres MD LAB BLOOD ORDERABLES Performing Organization Address City/State/ZIP Code Phon e Number [place] [phone] [address] [place] [address] (ABNORMAL) Electrolyte Panel (10/13/2022 1:56 PM CHIEF DISPATCHER)Only the most recent of13 resultswithin the time period is included. athologist [facility] Sodium Lvl 135 (L) 136 - 145 [place] mEq/L Comment: Testing performed at [facility], [address] [place], [place] [id number] Potassium Lvl 4.2 3.5 - 5.1 mEq/L [place] Comment: Testing performed at [facility], [address] [place], [place] [id number] Chloride 103 98 - 107 mEq/L [place] Comment: Testing performed at [facility], [address] [place], [place] [id number] CO2 24 22 - 29 mEq/L [place] Comment: Testing performed at [facility], [address] [place], [place] [id number] Anion Gap 8 4 - 14 mEq/L [place] Comment: Testing performed at [facility], [address] [place] [id number] Specimen Anatomical Collection Method Collection Time Receive d Time (Source) Location / / Volume Laterality Blood 10/13/2022 1:56 PM 3 2:00 CHIEF DISPATCHER PM CHIEF DISPATCHER Almita Batres MD LAB BLOOD ORDERABLES Performing Organization Address City/State/ZIP Code Phon e Number MELISSA VERN MENDEZ [address] (ABNORMAL) Urinalysis Microscopic Exam (10/13/2022 1:19 PM CHIEF DISPATCHER) athologist Signature UA WBC 5-10 (A) 0 - 2 /HPF [place] Comment: Some reporting parameters within the Uri nalysis test have changed due to the implementation of new instrumentation in the [facility], allowing greater sensitivity of measurement. Urinalysis results rep orted by the [facility] using existing instrumentation, as well as Urinalysis t esting performed manually or by backup methodology at the [facility] will remain relatively unchanged. New reporting parameters and units will not be reported for all [facility]. All components of UA Microscopic Exam performed at [facility], [address] [place] [address] UA RBC 0-2 0 - 2 /HPF [place] Comment: As part of the UA Microscopic E xam performed at [facility], [address] [place] [address] UA Mucous 2+ (A) Not Seen-Trace /HPF [place] Comment: As part of the UA Microscopic E xam performed at [facility], [address] [place] [address] UA Bacteria Few (A) NOT SEEN /HPF [place] Comment: As part of the UA Microscopic E xam performed at [facility], [address] [place] [address] UA Squam Epi OCC None-Occasional /HPF [place] Comment: As part of the UA Microscopic E xam performed at [facility], [address] [place] [address] UA Trans Epi OCC (A) NOT SEEN /HPF [place] Comment: As part of the UA Microscopic E xam performed at [facility], [address] [place] [address] UA Hyal Cast 0-2 0 - 2 /LPF [place] Comment: As part of the UA Microscopic E xam performed at [facility], [address] [place] [address] Specimen Anatomical Collection Method Collection Time Receive d Time (Source) Location / / Volume Laterality Urine 10/13/2022 1:19 PM 3 2:29 CHIEF DISPATCHER PM CHIEF DISPATCHER Almita Batres MD LAB BLOOD ORDERABLES Performing Organization Address City/State/ZIP Code Phon e Number [place] [address] (ABNORMAL) Urinalysis w/Microscopic If Indicated (10/13/2022 1:19 PM CHIEF DISPATCHER)Only the most recent of6 resultswithin the time period is included. athologist Signature UA Color Yellow Straw-Yellow [place] Comment: All components of UA Macroscopi c performed at [facility], [address] [place] [address] UA Appear Hazy (A) Clear [place] Comment: As part of the UA Macroscopic p erformed at [facility], [address] [place] [address] UA Glucose NEG NEG mg/dL [place] Comment: As part of the UA Macroscopic p erformed at [facility], [address] [place] [address] UA Bili POS (A) NEG [place] Comment: As part of the UA Macroscopic p erformed at [facility], [address] [place] [address] UA Ketones NEG NEG mg/dL [place] Comment: As part of UA Macroscopic or as an individual orderable testing performed at [facility], [address] [place] [address] UA Spec Grav 1.025 1.003 - 1.035 [place] Comment: As part of UA Macroscopic or as an individual orderable testing performed at [facility], [address] [place] [address] UA Blood Moderate (A) NEG [place] Comment: As part of the UA Macroscopic p erformed at [facility], [address] [place] [address] UA pH 6.0 5.0 - 9.0 [place] Comment: As part of UA Macroscopic or as an individual orderable testing performed at [facility], [address] [place] [address] UA Protein 100 (A) NEG mg/dL [place] Comment: As part of the UA Macroscopic p erformed at [facility], [address] [place] [address] UA Urobilinogen NEG NEG [place] Comment: As part of the UA Macroscopic p erformed at [facility], [address] [place] [address] UA Nitrite NEG NEG [place] Comment: As part of the UA Macroscopic p erformed at [facility], [address] [place] [address] UA Leuk Est Trace (A) NEG [place] Comment: As part of the UA Macroscopic p erformed at [facility], [address] [place] [address] Specimen Anatomical Collection Method Collection Time Receive d Time (Source) Location / / Volume Laterality Urine 10/13/2022 1:19 PM 3 2:29 CHIEF DISPATCHER PM CHIEF DISPATCHER Almita Batres MD URINE ORDERABLES Performing Organization Address City/State/ZIP Code Phon e Number [facility] VERN MENDEZ [address] Pain Management Fluoroscopy (09/07/2022 1:14 PM CHIEF DISPATCHER)Only the most recent of2 resultswithin the time period is included. Specimen (Source) Anatomical Location Collection Method / Collectio n Time Received Time / Laterality Volume Narrative Systemgenerated, Documentation - 023 1:14 PM CHIEF DISPATCHER This procedure requires no interpretatio n from the radiologist. Jacek Kimball MD IMG NON DI ORDERABLES Pain Management Ultrasound (09/01/2022 11:27 AM CHIEF DISPATCHER) Specimen (Source) Anatomical Location Collection Method / Collectio n Time Received Time / Laterality Volume Narrative Systemgenerated, Documentation - 023 11:27 AM CHIEF DISPATCHER This procedure requires no interpretatio n from the radiologist. Jacek Kimball MD IMG NON DI ORDERABLES CT chest abdomen pelvis w contrast (07/27/2022 11:04 AM CHIEF DISPATCHER)Only the most recent of2 resultswithin the time period is included. Anatomical Region Laterality Modality Abdomen, Pelvis, Chest Computed Tomograp hy Specimen (Source) Anatomical Collection Method Collection Time Re ceived Time Location / / Volume Laterality 07/28/2022 11:34 AM CHIEF DISPATCHER Impressions 07/28/2022 11:46 AM CHIEF DISPATCHER 1. The cystic mass in the pelvis likel y arising from the left ovary has increased in size compared to 04/20/2022. This creates mass effect upon the bladder. 2. New multiple fractures in the right inferior pubic ramus with evidence of healing, consistent with clinical history of intervening fall. Stable old healed fracture in the left inferior pubic ramus. 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 Findings: CHEST: A right-sided Port-A-Cath terminates at the atriocaval junction. A few punctate densities in the subpleural regions of the lungs are stable. No new or otherwise suspicious pulmonary nodules. No pleural effusions. Large hiatal hernia. ABDOMEN AND PELVIS: The liver, gallbladder, spleen, pancreas , and adrenal glands are unremarkable. Stable small probable cysts in the kidne ys. No hydronephrosis. Stable large parastomal hernia in the [facility] lower quadrant with no evidence of obstruction. A cystic mass in the pelvis has increase d in size, now measuring 8.5 x 9.1 cm in cross-section and 9 cm craniocaudad (image 70 of series 607), previously 8.2 x 6.6 cm in cross-section and 7.2 cm cranioc audad. The solid mural nodule has increa sed in size, now measuring 5.6 x 3.2 cm (image 228 of series 4), previously 4.2 x 2.5 cm. There is progressive mass effect upon th e bladder. No new nodules or masses in the pelvis. No lymphadenopathy. No ascites. Old healed fracture in the left inferior pubic ramus. New multiple fractures in the right infe rior pubic ramus with evidence of callus formation (images 243-254 of series 4). This is consistent with the clinical history of a previous fall. No suspicious bone lesions. Procedure Note Jacquelyn Oneill MD - 07/28/2022Format ting of this note might be different from the original. 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 Findings: CHEST: A right-sided Port-A-Cath terminates at the atriocaval junction. A few punctate densities in the subpleural regions of the lungs are stable. No new or otherwise suspicious pulmonary nodules. No pleural effusions. Large hiatal hernia. ABDOMEN AND PELVIS: The liver, gallbladder, spleen, pancreas , and adrenal glands are unremarkable. Stable small probable cysts in the kidne ys. No hydronephrosis. Stable large parastomal hernia in the ri t lower quadrant with no evidence of obstruction. A cystic mass in the pelvis has increase d in size, now measuring 8.5 x 9.1 cm in cross-section and 9 cm craniocaudad (image 70 of series 607), previously 8.2 x 6.6 cm in cross-section and 7.2 cm craniocaudad. The solid mural nodule has increased in size , now measuring 5.6 x 3.2 cm (image 228 of series 4), previously 4.2 x 2.5 cm. There is progressive mass effect upon th e bladder. No new nodules or masses in the pelvis. No lymphadenopathy. No ascites. Old healed fracture in the left inferior pubic ramus. New multiple fractures in the right infe rior pubic ramus with evidence of callus formation (images 243-254 of series 4). This is consistent with the clinical history of a previous fall. No suspicious bone lesions. IMPRESSION: 1. The cystic mass in the pelvis likely arising from the left ovary has increased in size compared to 04/20/2022. This creates mass effect upon the bladder. 2. New multiple fractures in the right i nferior pubic ramus with evidence of healing, consistent with clinical history of intervening fall. Stable old healed fracture in the left inferior pubic ramus. Leana DAILEY IMG CT ORDERABLES POC Creatinine (07/27/2022 10:51 AM CHIEF DISPATCHER)Only the most recent of3 resultswithin the time period is included. P athologist Signature POC Crea 0.7 0.6 - 1.3 [facility]OC [facility] mg/dL Comment: [...] analyte concentration by an electrochemical assay. POC EGFR 84 >=60 mL/min/1.73 sq. m POC [facility] Comment: The eGFRcr is calculated with the [...] G1 nor G2 fulfill criteria for CKD. POC Clean Dev Yes POC [facility] Performing Lab KEYANNA Bills POC [facility] Comment: Diagnostic Imaging [facility] [place], [address] [place] [address]; Point of Care Lozenge Maker Helper: Cindy Rose MD Specimen Anatomical Collection Method Collection Time Receive d Time (Source) Location / / Volume Laterality Blood 07/27/2022 10:51 07/27/2022 AM CHIEF DISPATCHER 10:51 AM CHIEF DISPATCHER Almita Batres MD POCT ORDERABLES - DEVICE Performing Organization Address City/State/ZIP Code Phon e Number POC [facility] Unless otherwise noted, [place] [address] lab tests performed by: Division of Pathology and Laboratory Medicine [address] [place] [address] POC [facility] Unless otherwise notes, [place] [address] lab tests performed by: Division of Pathology and Laboratory Medicine [address] [place] [address] (ABNORMAL) Urinalysis with Microscopic (04/21/2022 12:44 PM CDT)Only the most recent of3 resultswithin the time period is included. athologist Signature UA WBC 51-100 (A) 0 - 2 /HPF [place] Comment: All components of UA Microscopi c Exam performed at [facility], [address] [place] [address], [place] [id number] UA RBC 11-25 (A) 0 - 2 /HPF [place] Comment: As part of the UA Microscopic E xam performed at [facility], [address] [place] [address], [place] [address] UA Mucous TRACE Not Seen-Trace /HPF [place] Comment: As part of the UA Microscopic E xam performed at [facility], [address] [place] [address], [place] [id number] UA Bacteria Few (A) NOT SEEN /HPF [place] Comment: As part of the UA Microscopic E xam performed at [facility], [address] [place] [address], [place] [id number] UA Squam Epi OCC None-Occasional /HPF [place] Comment: As part of the UA Microscopic E xam performed at [facility], [address] [place] [address] UA WBC Clump 1+ (A) NOT SEEN /HPF [place] Comment: As part of the UA Microscopic E xam performed at [facility], [address] [place] [address] UA Hyal Cast 0-2 0 - 2 /LPF [place] Comment: As part of the UA Microscopic E xam performed at [facility], [address] [place] [address] Specimen Anatomical Collection Method Collection Time Receive d Time (Source) Location / / Volume Laterality Urine 04/21/2022 12:44 04/21/2022 PM CDT 12:54 PM CDT Narrative [place] - 04/21/2022 1:55 PM CDT Some reporting parameters within the Urinalysis test have changed due to the implementation of new instrumentation in the [facility], allowing greater sensitivity of measurement. Urinalysis results rep orted by the [facility] using existing instrumentation, as well as Urinalysis t esting performed manually or by backup methodology at the [facility] will remain relatively unchanged. New reporting parameters and units will now be reported for all [place]. Adriane DAILEY URINE ORDERABLES Performing Organization Address City/State/ZIP Code Phon e Number [address] (ABNORMAL) Urine Culture (04/21/2022 12:44 PM CDT) Component Value Ref [facility] Method Time Signature Final Report <10,000 cfu/ml Normal site ruby present. SIMON MENDEZ Generally of low significance. SUSAN Correlate with clinical data and culture history. [facility] Path Review - The results have been review ed and electronically signed by Pathologist: SIMON MENDEZ Urine Ady Coto MD, PhD #[id number] [facility] Specimen Anatomical Collection Method Collection Time Receive d Time (Source) Location / / Volume Laterality Urine 04/21/2022 12:44 04/21/2022 7:33 PM CDT PM CDT Adriane DAILEY MICROBIOLOGY - GENERAL ORDER ROWENA Performing Organization Address City/State/ZIP Code Phon e Number [facility] Unless otherwise noted, [address] all lab tests performed by: Division of Pathology and Laboratory Medicine [address] [facility] [address] Chest Abdomen Pelvis with and without [...] wall of the lesion is stable. Gaby D Luz PATIENT SERVICE COORDINATOR IMG CT ORDERABLES Fractionated Bilirubin (04/20/2022 6:06 PM CDT)Only the most recent of2 results within the time period is included. athologist Signature Bili Total <0.3 <=1.2 mg/dL [facility] Comment: Direct and indirect bilirubin will not [...] 6:30 CDT PM CDT Gaby D White PATIENT SERVICE COORDINATOR LAB BLOOD ORDERABLES Performing Organization Address City/[facility] [place] Phon e Number [facility] Unless otherwise noted, [address] all lab tests performed by: Division of Pathology and Laboratory Medicine [address] [place] [address] Total Protein (04/20/2022 6:06 PM CDT)Only the most recent of2 resultswithin the time period is included. athologist [facility] Total Protein 6.7 6.4 - 8.3 [facility] g/dL [facility] Specimen Anatomical Collection Method Collection Time Receive d Time (Source) Location / / Volume Laterality Blood 04/20/2022 6:06 PM 2 6:30 CDT PM CDT Gaby D White PATIENT SERVICE COORDINATOR LAB BLOOD ORDERABLES Performing Organization Address [facility] Phon e Number [facility] Unless otherwise noted, [address] all lab tests performed by: Division of Pathology and Laboratory Medicine [address] [place] [address] (ABNORMAL) Alkaline Phosphatase (04/20/2022 6:06 PM CDT)Only the most recent of2 resultswithin the time period is included. athologist Signature Alk Phos 122 (H) 35 - 104 [facility] U/L [facility] Specimen Anatomical Collection Method Collection Time Receive d Time (Source) Location / / Volume Laterality Blood 04/20/2022 6:06 PM 2 6:30 CDT PM CDT Gaby D White PATIENT SERVICE COORDINATOR LAB BLOOD ORDERABLES Performing Organization Address City/[facility]/ZIP [facility] Phon e Number [facility] CANCER Unless otherwise noted, [address] all lab tests performed by: Division of Pathology and Laboratory Medicine [address] [place] Magnesium (04/20/2022 6:06 PM CDT)Only the most recent of6 resultswithin the time period is included. P athologist Signature Magnesium 1.6 1.6 - 2.6 [facility] mg/dL [facility] Specimen Anatomical Collection Method Collection Time Receive d Time (Source) Location / / Volume Laterality Blood 04/20/2022 6:06 PM 2 6:30 CDT PM CDT Almita Batres MD LAB BLOOD ORDERABLES Performing Organization Address [facility] Phon e Number [facility] CANCER Unless otherwise noted, [address] all lab tests performed by: Division of Pathology and Laboratory Medicine [address] [place] Albumin Level (04/20/2022 6:06 PM CDT)Only the most recent of2 resultswithin the time period is included. P athologist Signature Albumin Lvl 4.1 3.5 - 5.2 [facility] gm/dL [facility] Specimen Anatomical Collection Method Collection Time Receive d Time (Source) Location / / Volume Laterality Blood 04/20/2022 6:06 PM 2 6:30 CDT PM CDT Gaby D White PATIENT SERVICE COORDINATOR LAB BLOOD ORDERABLES Performing Organization Address City/[facility]/ZIP Code Phon e Number [facility] CANCER Unless otherwise noted, [address] all lab tests performed by: Division of Pathology and Laboratory Medicine [facility] [place] Clot Expiration Date (02/17/2022 3:32 PM CDT) Patholo gist Method Time Signature T & S 02/20/2022 [facility] Specimen Anatomical Collection Method Collection Time Receive d Time (Source) Location / / Volume Laterality Blood 02/17/2022 3:32 PM 2 6:46 CDT PM CDT Adriane Paul [place] BLOOD BANK TEST ORDERABLES Performing Organization Address City/[facility]/ZIP Code Phon e Number [place] [facility] Unless otherwise noted, [address] all lab tests performed by: Division of Pathology and Laboratory Medicine Sugey Guaman TMP Interpretation Antibody Screen Negative (02/17/2022 3:32 PM CDT) Patholo gist Method Time Signature TMP Auto Neg At the [facility] patient plasma shows no evidence of RBC alloantibodi es. Comment: MD Ernesto OCHOA [id number] Dictated by: MD Ernesto OCHOA Dictated Date/Time: 02.18.2022 8:57 AM C DT Transcribed Date/Time: 02.18.2022 8:57 AM CDT Electronically Signed By: MD Ernesto OCHOA on 02.18.2022 8:57 AM C Specimen Anatomical Collection Method Collection Time Receive d Time (Source) Location / / Volume Laterality Blood 02/17/2022 3:32 PM 6:46 CDT PM CDT Adriane DAILEY BLOOD BANK TEST ORDERABLES Performing Organization Address City/[facility]/ZIP Code Phon e Number [facility] CANCER Unless otherwise noted, [address] all lab tests performed by: Division of Pathology and Laboratory Medicine [address] [place], [place] [address]patrick Guaman Confirm ABORh (02/17/2022 3:32 PM CDT) P athologist Signature ABORh Confirm. A NEG [facility] Specimen Anatomical Collection Method Collection Time Receive d Time (Source) Location / / Volume Laterality Blood 02/17/2022 3:32 02/17/2022 6:46 PM CDT PM CDT Adriane [employer] BLOOD BANK TEST ORDERABLES Performing Organization Address City/[facility] Phon e Number [facility] CANCER Unless otherwise noted, [address] all lab tests performed by: Division of Pathology and Laboratory Medicine [address] [place] [address] [place] ABORh (02/17/2022 3:32 PM CDT) P athologist Signature ABORh. A NEG [facility] Specimen Anatomical Collection Method Collection Time Receive d Time (Source) Location / / Volume Laterality Blood 02/17/2022 3:32 PM 2 6:46 CDT PM CDT Adriane Paul [place] BLOOD BANK TEST ORDERABLES Performing Organization Address City/[facility]/ZIP [facility] Phon e Number [facility] CANCER Unless otherwise noted, [address] all lab tests performed by: Division of Pathology and Laboratory Medicine [address] [place] Antibody Screen (02/17/2022 3:32 PM CDT) athologist Signature ABSC. Negative ABSC [facility] Specimen Anatomical Collection Method Collection Time Receive d Time (Source) Location / / Volume Laterality Blood 02/17/2022 3:32 PM 2 6:46 CDT PM CDT Adriane DAILEY BLOOD BANK TEST ORDERABLES Performing Organization Address City/[facility] [place] Phon e Number [facility] CANCER Unless otherwise noted, [address] all lab tests performed by: Division of Pathology and Laboratory Medicine [facility] [place] after 10/16/2021 Insurance Payer Benefit Plan / Subscriber ID Effective Phone Address T ype Group Dates [facility] MEDICARE [id number] 2020-Prese [address] [address] Medicare HEALTH[employer]ARE ADVANTAGE [place] [id number] Care Teams Timber Cruiser Relationship Specialty Start Date End Date Mayte Kaur, PCP - External Obstetrics/Gynecology 06/03/20 MD Referring Almita Batres, PCP - General Gynecological Oncology 06/07/20 [facility] [place] [address]
--- OUTSIDE RECORDS SUMMARY | 2022-10-16 12:34 | XMS REPORT | Continuity of Care Document ---
:1935 Author Organization [facility] t Address [address] [place] [address] Care Team Providers Name Role Phone [phone] Primary Care Physician Unavailable SYSTEM, PROVIDER NOT IN Attending Clinician Unavailable ADRIANE ESPARZA Attending Clinician Unavailable Adriane Hernandes Attending Clinician Dallas Crowley RN Attending Clinician Unavailable VIRAJ CABRERA Attending Clinician Unavailable Viraj Cabrera MD Attending Clinician Leana Gurrola Attending Clinician Hong Lee RN P Attending Clinician [phone] Svetlana Rose RN Attending Clinician Unavailable Verenice Dsouza RN Attending Clinician Meche Crystal RN Attending Clinician Jacek Parrish MD Attending Clinician JACEK PARRISH Attending Clinician Unavailable Haily Joseph RN Attending Clinician Unavailable Kelsei Ware RN Attending Clinician Unavailable Gladis Moya RN Attending Clinician Unavailable Guerita Tao RN Attending Clinician Unavailable JACEK RAMESH Attending Clinician Unavailable Jacek Ramesh MD Wali Attending Clinician [phone] Teri BELTRAN, Karla L Attending Clinician Unavailable Leia BELTRAN, Alexus Brooks Attending Clinician Edgar BELTRAN, Tammie Witt Attending Clinician Unavailable Zoe Escobar NP Attending Clinician Amita BELTRAN, Rena Rodrigues Attending Clinician Unavailable Monica Andrews RN Attending Clinician Unavailable ZOE ESCOBAR Attending Clinician Unavailable Nick Bolaños Attending Clinician Unavailable Debbie BELTRAN, Hazel Herrera Attending Clinician Unavailable NICK MCCALLUM Attending Clinician Unavailable Kelsey Meyer MD Attending Clinician Jonathon Rao MD, Michael Attending Clinician [phone] Coyle RN, Madina Lopez Attending Clinician Unavailable Jozef Mendez MD Attending Clinician Cole Mcknight MD Attending Clinician Miguel Melo Attending Clinician Abdullahi Terry RN Attending Clinician Unavailable VALERIE BALTAZAR Attending Clinician Unavailable MIGUEL ADAMS Attending Clinician Unavailable JARETT GAFFNEY Attending Clinician Unavailable GUERITA GAGNON Attending Clinician Unavailable JARETT GAFFNEY Admitting Clinician Unavailable Payers Payer Name Policy Type Policy Number Effective Date Expiration Date S luanne [facility] MEDIC[facility] [id number] 2020 ADVANTAGE 00:00:00 UNITED MEDICARE HMO [id number] 2020 00:00:00 MEDICARE PART A AND [id number] 1988 B 00:00:00 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 Personal Personal Disease Active 2021-08 Unive rs history of history of 2-12 it y of fall fall 00:00: MD Susan broussard [facility] Fracture Fracture Disease Active 2021-08 Unive rs of pubic of pubic 2-12 ity of rami rami 00:00: 00 MD Susan broussard [facility] Mass of Mass of Disease Active 2020-08 Univers muscle of muscle of 2-10 ity of left upper left upper 00:[place] limb limb 00 MD Susan broussard [facility] Encounter Encounter Disease Active Uni vers for [...] of with with 00:00: g of this [place] rheumatoid rheumatoid 00 note factor of factor of might be An derso unspecifie unspecifie different n d site d site from the Cancer without without original. Cente r organ or organ or Added systems systems automatic involvemen involvemen ally from t t request for surgery Cardiomega Cardiomega Disease Active 2019-08 U nivers ly ly 2-11 ity of 00:00: MD [facility] Pulmonary Pulmonary Disease Active 2019-08 Uni vers hypertensi hypertensi 2-11 it y of on on 00:00: MD Susan broussard [facility] Metastatic Metastatic Disease Active 2019-08 U nivers cancer to cancer to 2-11 ity of the the 00:00: [place] peritoneum peritoneum 00 MD Susan broussard [facility] Colostomy Colostomy Disease Active 2020- Uni vers status status 2-11 ity of 00:00: [place] 00 MD Susan broussard [facility] Frailty Frailty Disease Active 2020- Univers 2-11 ity of 00:00: [place] 00 MD Susan broussard [facility] Chronic Chronic Disease Active 2020- Univers pain pain 2-11 ity of 00:00: [place] 00 MD Susan broussard [facility] Opioid Opioid Disease Active 2020- Univers abuse abuse 2-11 ity of continuous continuous [place] use use 00 MD Susan broussard [facility] H/O: H/O: Disease Active 2020- Univers pulmonary pulmonary 2-11 ity of embolus embolus 00:00: [place] 00 MD Susan broussard [facility] 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 Disease Active 2020- Uni vers current current 2-11 ity of use of use of 00:00: [place] anticoagul anticoagul 00 ant ant Susan broussard [facility] Gastroesop Gastroesop Disease Active 2020- U nivers hageal hageal 2-11 ity of reflux reflux 00:00: [place] disease disease 00 MD Susan broussard [facility] Herpes Herpes Disease Active 2020- Univers zoster zoster 2-11 ity of 00:00: [place] 00 MD Susan broussard [facility] Deep Deep Disease Active 2020- Univers venous venous 2-11 [place]y of thrombosis thrombosis [place] 00 [place] Susan broussard [facility] Cancer Cancer Disease Active 2020- Univers associated associated 2-11 it y of pain pain 00:00: [place] 00 MD Susan broussard [facility] Coronary Coronary Disease Active 2020- Unive rs atheroscle atheroscle 2-10 it y of rosis of rosis of 00:00: [place] 00 coronary coronary Kevin o artery artery n [facility] Essential Essential Disease Active 2020- Uni vers hypertensi hypertensi 2-10 it y of on on 00:00: [place] 00 MD Susan broussard [facility] 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 2-10 it y of emia emia 00:00: [place] 00 MD Susan broussard [facility] Obstructiv Obstructiv Disease Active 2020- U nivers e sleep e sleep 2-10 ity of apnea apnea 00:00: [place] syndrome syndrome 00 MD [facility] Rheumatoid Rheumatoid Disease Active 2019-08 U nivers arthritis arthritis 2-10 ity of 00:00: [place] MD Susan broussard [facility] Fibromyalg Fibromyalg Disease Active 2019 U nivers ia ia 5-06 ity of 00:00: [place] MD Susan broussard [facility] Parastomal Parastomal Disease Active 2019 U nivers hernia hernia 3-04 ity of without without 00:00: [place] obstructio obstructio 00 n or n or Susan gangrene gangrene n [facility] 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, arcinoma, 00:00: Elliott rodrigues NOS of NOS of 00 ovary ovary Susan <Bilateral <Bilateral n > > [facility] Atrial Atrial Disease Active Univers fibrillati fibrillati 7-12 it y of on on 00:00: [place] MD Susan broussard [facility] Chronic Chronic Disease Active Univers obstructiv obstructiv 7-12 it y of e e 00:00: [place] pulmonary pulmonary 00 disease disease [facility] Diverticul Diverticul Disease Active U nivers itis of itis of 7-12 ity of colon colon 00:00: [place] 00 MD Susan broussard [facility] Allergies, Adverse Reactions, Alerts Allergy Allergy Status Severity Reaction(s) Onset Inactive Treating Comm ents Source Name Type Date Date Clinician Sulfamet Propensi Active Shortness Of 2019-08 Univers hoxazole ty to Breath 2-11 ity of -Trimeth adverse 00:00: [place] oprim reaction 00 MD ravi broussard [facility] Metoprol Propensi Active Other (See 2019-08 Brachycar Univers ol ty to Comments) 2-11 chelsi, ity of Succinat adverse 00:00: hypotensi [place] e reaction 00 on MD ravi broussard [facility] SULFAMET DRUG Active High Hives 2019-08 MD HOXAZOLE 2-11 Anderso -TRIMETH 00:00: n OPRIM 00 METOPROL DRUG Active Other 2019-08 MD OL INGREDI 2-11 Anderso SUCCINAT 00:00: n E 00 SULFAMET DRUG Active High Hives 2019-08 MD HOXAZOLE 2-11 Anderso -TRIMETH 00:00: n [...] E 00 SULFAMET DRUG Active High Hives 2019- HOXAZOLE 2-11 Anderso -TRIMETH 00:00: n OPRIM 00 METOPROL DRUG Active Other 2019- OL INGREDI 2-11 Anderso SUCCINAT 00:00: n E 00 SULFAMET DRUG Active High Hives 2019- HOXAZOLE 2-11 Anderso -TRIMETH 00:00: n OPRIM 00 METOPROL DRUG Active Other 2019- OL INGREDI 2-11 Anderso SUCCINAT 00:00: n E 00 SULFAMET DRUG Active High Hives 2019-08 HOXAZOLE 2-11 Anderso -TRIMETH 00:00: n OPRIM 00 METOPROL DRUG Active Other 2019- MD ROBIN INGREDI 2-11 Anderso SUCCINAT 00:00: n E 00 Family History Family Member Diagnosis Comments Start Date Stop Date Source Natural mother Breast cancer [facility] Social History Social Habit Start Date Stop Date Quantity Comments Source Exposure to 2022-10-03 2022-10-13 [facility] sure [facility] 00:00:00 13:18:00 Kim Christina [facility] (event) [facility] Alcohol intake 2022-10-13 2022-10-13 Ex-drinker [facility] 00:00:00 00:00:00 (finding) Kim Christina [facility] Tobacco use and 2020-07-30 2020-07-30 Smokeless tobacco Un iversity of exposure 00:00:00 00:00:00 non-user Kim Christina [facility] Sex Assigned At [birth year] [facility] 00:00:00 00:00:00 Medical Center Smoking Status Start Date Stop Date Source Never smoked tobacco [facility] Medications Ordered Filled Start Stop Current Ordering Indication Dosage Frequency Signature Comments Components Source Medication Medication Date Date Medication? Clinician (SIG) Name Name ondansetron Yes Nausea 8mg Take 1 Un paco (Zofran) 8 2-24 tablet (8 ity of mg tablet 00:00: mg) by [place] 00 mouth every 8 Anderso (eight) n hours as Cancer needed for Center nausea or vomiting. prochlorper Yes Nausea 10mg Take 1 Un [facility]aco azine 2-24 tablet (10 ity of (Compazine) 00:00: mg) by [place] 10 mg 00 mouth MD tablet every 6 Anderso (six) n hours as Cancer needed for Center nausea. acetaminoph Yes 500mg Take 1 Uni vers en 2-03 tablet ity of (TYLENOL) 09:07: (500 mg[place] 500 mg 16 by mouth MD tablet every 6 Anderso (six) n hours as Cancer needed for Center mild pain. cholecalcif 2022- No 1000U Take 1 Un paco danny, 2- 02-03 tablet ity of vitamin D3, 09:06: 00:00 (1,000 [place] as 25 mcg 35 :00 Units) by MD (1,000 mouth Anderso unit) every n tablet morning. Cancer Center docusate Yes 250mg Take 1 Univer s sodium 2-03 capsule ity of (COLACE) 08:48: (250 mg) [place] 250 mg 56 by mouth MD capsule twice Anderso daily. n [facility] Center pregabalin Yes Chronic 50mg Take 1 Un paco (LYRICA) 50 1-17 pain capsule ity o f mg capsule 00:00: (50 mg) by Marcus mata 00 mouth MD twice Anderso daily. n [facility] cyclophosph 2022- No Serous 50mg Take 1 U nivers amide 1-13 02-15 cystadenoca capsule ity of (CYTOXAN) 00:00: 05:59 rcinoma, (50 mg) by [place] 50 mg 00 :00 NOS of mouth MD capsule ovary daily for Kevin o <Bilateral> 21 doses. n [facility] cyclophosph 2021-08- No Serous 50mg Take 1 U nivers amide 2 01-12 cystadenoca capsule ity of (CYTOXAN) 00:00: 05:59 rcinoma, (50 mg) by [place] 50 mg 00 :00 NOS of mouth MD capsule ovary daily for Kevin o <Bilateral> 30 doses. n Cancer [facility] azithromyci 2021-08- No daily. Uni vers n 2- 02-03 ity of (ZITHROMAX) 00:00: 00:00 [place] 250 mg 00 :00 MD tablet Anderso [facility] buprenorphi 2021-08- No Pain in 5ug Place 1 Univers ne 2 12-12 right patch (5 ity of (Butrans) 5 00:00: 00:00 shoulder mcg) on [place] mcg/hour 00 :00 the skin MD ptwk every 7 Anderso transdermal days. n patch Remove old Cancer patch(es) Center before replacing new patch(es). cyclophosph 2021-08- No Metastatic 50mg Take 1 Univers amide 0-14 08 cancer to capsule ity o f (CYTOXAN) 00:00: 05:59 the (50 mg) by [place] 50 mg 00 :00 peritoneum mouth MD capsule daily for Anderso 21 doses. [facility] cyclophosph 2021-08- No Metastatic 50mg Take 1 Univers amide 0-14 06-27 cancer to capsule ity o f (CYTOXAN) 00:00: 05:59 the (50 mg) by [place] 50 mg 00 :00 peritoneum mouth MD capsule daily for Anderso 21 doses. [facility] cholecalcif Yes 1000U Take 1,000 Univers danny, 9-23 Units by ity of vitamin D3, 14:43: mouth [place] 25 mcg 28 every MD (1,000 morning. Anderso unit) n tablet [facility] docusate Yes 250mg Take 250 Univ ers sodium 9-23 mg by ity of (COLACE) 14:43: mouth [place] 250 mg 28 twice MD capsule daily. Anderso [facility] cyclophosph 2021- No Neoplasm, 50mg Take 1 Univers amide 9-23 10-14 malignant capsule ity o f (CYTOXAN) 00:00: 21:07 of ovary (50 mg) by [place] 50 mg 00 :19 <Bilateral> mouth MD capsule daily for Anderso 21 doses. [facility] cyclophosph 2021- No Neoplasm, 50mg Take 1 Univers amide 9-23 10-14 malignant capsule ity o f (CYTOXAN) 00:00: 21:07 of ovary (50 mg) by [place] 50 mg 00 :19 <Bilateral> mouth MD capsule daily for Anderso 21 doses. n Cancer Center penicillin Yes 4 (four) Uni vers V potassium 05-08 times a ity o f (VEETID) 00:00: day. [place] 500 mg 00 MD tablet [facility]o [facility] penicillin 2021- No 4 (four) Un paco V potassium 05-08- times a ity of (VEETID) 00:00: 00:00 day. [place] 500 mg 00 :00 MD tablet [facility] pregabalin [...] mg tablet 00:00: of ovary mg) by Adalberto bauman 00 <Bilateral> mouth MD every 8 Anderso (eight) n hours as Cancer needed for Center nausea or vomiting. ondansetron 2022- No Neoplasm, 8mg Take 1 Univers (Zofran) 8 04-21 02-24 malignant tablet (8 ity of mg tablet 00:00: 00:00 of ovary mg) by [place] 00 :00 <Bilateral> mouth MD every 8 Anderso (eight) n hours as Cancer needed for Center nausea or vomiting. pregabalin 2022- No Chronic 50mg Take 1 U nivers (LYRICA) 50 04-21 01-17 pain capsule ity of mg capsule 00:00: 00:00 (50 mg) by Kim 00 :00 mouth 3 MD (three) Anderso times a n day. Cancer Center ciprofloxac 2021- No Dysuria 500mg Take 1 Univers in HCl 04-21 tablet ity of (Cipro) 500 00:00: 00:00 (500 mg) [place] mg tablet 00 :00 by mouth MD twice Anderso daily. n [facility] ciprofloxac 2021- No Dysuria 500mg Take 1 Univers in HCl 04-21 tablet ity of (Cipro) 500 00:00: 00:00 (500 mg) [place] mg tablet 00 :00 by mouth MD twice Anderso daily. n [facility] cyclophosph 2021- No Metastatic 50mg Take 1 Univers amide 04-21 cancer to capsule ity o f (CYTOXAN) 00:00: 20:12 the (50 mg) by [place] 50 mg 00 :55 peritoneum mouth MD capsule daily for Anderso 21 doses. n [facility] cyclophosph 2021- No Metastatic 50mg Take 1 Univers amide 04-21 cancer to capsule ity o f (CYTOXAN) 00:00: 20:12 the (50 mg) by [place] 50 mg 00 :55 peritoneum mouth MD capsule daily for Anderso 21 doses. n [facility] pregabalin 2021- No Chronic TAKE 1 U nivers (LYRICA) 50 02-23 pain CAPSULE BY i ty of mg capsule 00:00: 00:00 MOUTH [place] 00 :00 THREE MD TIMES Anderso DAILY [facility] pregabalin 2021- No Chronic TAKE 1 U nivers (LYRICA) 50 02-23 pain CAPSULE BY i ty of mg capsule 00:00: 00:00 MOUTH [place] 00 :00 THREE MD TIMES Anderso DAILY [facility] cholecalcif Yes 1000U Take 1,000 Univers danny, 6-10 Units by ity of vitamin D3, 10:26: mouth [place] 25 mcg 42 every MD (1,000 morning. Anderso unit) [facility] docusate Yes 250mg Take 250 Univ ers sodium 6-10 mg by ity of (COLACE) 10:26: mouth [place] 250 mg 42 twice MD capsule daily. [facility] diclofenac Yes Chronic 2g Apply 2 g Univers sodium 6-10 back pain topically ity of (Voltaren) 00:00: to [place] 1 % gel 00 affected MD area(s) 3 Anderso (three) n times a Cancer day. [facility] diclofenac Yes Chronic 2g Apply 2 g Univers sodium 6-10 pain topically ity of (Voltaren) 00:00: to [place] 1 % gel 00 affected MD area(s) 4 Anderso (four) n times a Cancer day. [facility] diclofenac 2021- No Chronic 2g Apply 2 g Univers sodium 6-10 09-02 back pain topically it y of (Voltaren) 00:00: 00:00 to [place] 1 % gel 00 :00 affected MD area(s) 3 Anderso (three) n times a Cancer day. [facility] diclofenac 2021- No Chronic 2g Apply 2 g Univers sodium 6-10 09-02 pain topically ity of (Voltaren) 00:00: 00:00 to [place] 1 % gel 00 :00 affected MD area(s) 4 Anderso (four) n times a Cancer day. [facility] diclofenac 2021- No Chronic 2g Apply 2 g Univers sodium 6-10 -02 back pain topically it y of (Voltaren) 00:00: 00:00 to [place] 1 % gel 00 :00 affected MD area(s) 3 Anderso (three) n times a Cancer day. [facility] diclofenac 2021- No Chronic 2g Apply 2 g Univers sodium 6-10 -02 pain topically ity of (Voltaren) 00:00: 00:00 to [place] 1 % gel 00 :00 affected MD area(s) 4 Anderso (four) n times a Cancer day. [facility] pregabalin Yes Chronic TAKE 1 Un paco (LYRICA) 50 3-10 pain CAPSULE BY it y of mg capsule 00:00: MOUTH [place] 00 THREE MD TIMES Anderso DAILY n [facility] pregabalin 2021- No Chronic TAKE 1 U nivers (LYRICA) 50 3-10 07-07 pain CAPSULE BY i ty of mg capsule 00:00: 00:00 MOUTH [place] 00 :00 THREE MD TIMES Anderso DAILY n [facility] pregabalin 2021- No Chronic TAKE 1 U nivers (LYRICA) 50 3-10 07-07 pain CAPSULE BY i ty of mg capsule 00:00: 00:00 MOUTH [place] 00 :00 THREE MD TIMES Anderso DAILY n [facility] diclofenac 2021- No Chronic 2g Apply 2 g Univers sodium 3-10 06-10 pain topically ity of (Voltaren) 00:00: 00:00 to [place] 1 % gel 00 :00 affected MD area(s) 4 Anderso (four) n times a Cancer day. [facility] diclofenac 2021- No Chronic 2g Apply 2 g Univers sodium 3-10 06-10 pain topically ity of (Voltaren) 00:00: 00:00 to [place] 1 % gel 00 :00 affected MD area(s) 4 Anderso (four) n times a Cancer day. [facility] diclofenac 2021- No Chronic 2g Apply 2 g Univers sodium 3-10 06-10 pain topically ity of (Voltaren) 00:00: 00:00 to [place] 1 % gel 00 :00 affected MD area(s) 4 Anderso (four) n times a Cancer day. [facility] pregabalin 2021- No Chronic TAKE 1 U nivers (LYRICA) 50 2-23 03-10 pain CAPSULE BY i ty of mg capsule 00:00: 00:00 MOUTH [place] 00 :00 THREE MD TIMES Anderso DAILY n [facility] pregabalin 2021- No Chronic TAKE 1 U nivers (LYRICA) 50 2-23 03-10 pain CAPSULE BY i ty of mg capsule 00:00: 00:00 MOUTH [place] 00 :00 THREE MD TIMES Anderso DAILY n [facility] pregabalin 2021- No Chronic TAKE 1 U nivers (LYRICA) 50 2-23 03-10 pain CAPSULE BY i ty of mg capsule 00:00: 00:00 MOUTH [place] 00 :00 THREE MD TIMES Anderso DAILY n [facility] ciprofloxac 2021- No Dysuria 250mg Take 1 Univers in HCl 09-15-18 tablet ity of (Cipro) 250 00:00: 00:00 (250 mg) [place] mg tablet 00 :00 by mouth MD twice Anderso daily. n [facility] ciprofloxac 2021- No Dysuria 250mg Take 1 Univers in HCl 09-15-18 tablet ity of (Cipro) 250 00:00: 00:00 (250 mg) [place] mg tablet 00 :00 by mouth twice Anderso daily. n [facility] ciprofloxac 2021- No Dysuria 250mg Take 1 Univers in HCl 09-15-18 tablet ity of (Cipro) 250 00:00: 00:00 (250 mg) [place] mg tablet 00 :00 by mouth MD twice Anderso daily. n [facility] ondansetron 2021- No Metastatic 8mg Take 1 Univers (ZOFRAN) 08-29 cancer to tablet (8 ity of mg tablet 00:00: 00:00 the mg) by [place] 00 :00 peritoneum mouth MD every 8 Anderso (eight) n hours as Cancer needed for Center nausea or vomiting. ondansetron 2021- No Metastatic 8mg Take 1 Univers (ZOFRAN) 8 08-29 cancer to tablet (8 ity of mg tablet 00:00: 00:00 the mg) by [place] 00 :00 peritoneum mouth MD every 8 Anderso (eight) n hours as Cancer needed for Center nausea or vomiting. ibuprofen 2020-08- No 400mg Take 400 Un paco (ADVIL,MOTR 2-10 12-10 mg by ity of [place]) 200 mg 11:56: 00:00 mouth [place] tablet 13 :00 twice MD daily. [facility] ibuprofen 2020-08- No 400mg Take 400 Un paco (ADVIL,MOTR 2-10 12-10 mg by ity of [place]) 200 mg 11:56: 00:00 mouth [place] tablet 13 :00 twice MD daily. [facility]o [facility] HYDROcodone 2020-08- No Chronic .5{tbl} Take 0.5 [...] Take 1 U nivers (LYRICA) 50 2-10 -23 pain capsule ity of mg capsule 00:00: 00:00 (50 mg) by [place] 00 :00 mouth 3 MD (three) Anderso times a n day. Cancer Center pregabalin 2020-08- No Chronic 50mg Take 1 U nivers (LYRICA) 50 2-10 -23 pain capsule ity of mg capsule 00:00: 00:00 (50 mg) by [place] 00 :00 mouth 3 MD (three) Anderso times a n day. Cancer Center pregabalin 2020- No Chronic Take 1 U nivers (LYRICA) 50 9-28 12-10 pain capsule by i ty of mg capsule 00:00: 00:00 mouth [place] 00 :00 twice MD daily Anderso [facility] pregabalin 2020- No Chronic Take 1 U nivers (LYRICA) 50 9-28 12-10 pain capsule by i ty of mg capsule 00:00: 00:00 mouth [place] 00 :00 twice MD daily Anderso [facility] methocarbam 2021- No Chronic 250mg Take 0.5 Univers ol 04-28-10 pain tablets ity of (ROBAXIN) 00:00: 00:00 [...] [place] 00 :00 mouth 3 MD (three) Andju[place] times a n day. Cancer Center omeprazol Yes Gastroesoph Take 1 Univers e (NexIUM) 04-22 ageal capsule by it y of 40 MG 00:00: reflux mouth once [place] capsule 00 disease daily [facility] Gastroesoph Take 1 Univers e (NexIUM) 04-22 ageal capsule by it y of 40 MG 00:00: reflux mouth once [place] capsule 00 disease daily MD Susan broussard [facility] esomeprazol Yes Gastroesoph Take 1 Univers e (NexIUM) 04-22 ageal capsule by it y of 40 MG 00:00: reflux mouth once [place] capsule 00 disease daily MD Susan broussard [facility] rivaroxaban Yes Malignant 20mg Take 1 Univers (Xarelto) 03-22 neoplasm of tablet (20 ity of 20 mg 00:00: unspecified mg) by [place] as tablet 00 ovary mouth daily. [facility] rivaroxaban Yes Malignant 20mg Take 1 Univers (Xarelto) 8 neoplasm of tablet (20 ity of 20 mg 00:00: unspecified mg) by [place] tablet 00 ovary mouth MD daily. [facility] rivaroxaban Yes Malignant 20mg Take 1 Univers (Xarelto) 8-03 neoplasm of tablet (20 ity of 20 mg 00:00: unspecified mg) by [place] as tablet 00 ovary mouth daily[facility] es[facility]ol 2020- No Gastroesoph Take 1 Univers e (NexIUM) 03-20 ageal capsule by i ty of 40 MG 00:00: 00:00 reflux mouth once [place] as capsule 00 :00 disease daily MD Susan broussard [facility] esomeprazol 2020- No Gastroesoph Take 1 Univers e (NexIUM) 02-15 ageal capsule by i ty of 40 MG 00:00: 00:00 reflux mouth once [place] capsule 00 :00 disease daily MD Susan broussard [facility] pregabalin 2020- No Chronic 50mg Take 1 U nivers (LYRICA) 50 02-10 pain capsule ity of mg capsule 00:00: 00:00 (50 mg) by [place] 00 :00 mouth MD twice Susan daily. [facility] magnesium 2020- No Hypomagnese Take 1 Univers oxide 02-07 ian tablet by ity of (MAOX) 400 00:00: 00:00 mouth [place] mg tablet 00 :00 twice MD daily Susan [facility] rivaroxaban 2020- No Malignant 20mg Take 1 Univers (Xarelto) 12-24 neoplasm of tablet (20 ity of 20 mg 00:00: 00:00 unspecified mg) [place] tablet 00 :00 ovary [facility] es[facility]- No Gastroesoph 40mg Take 1 Univers e (NexIUM) 12-24 ageal capsule ity of 40 MG 00:00: 00:00 reflux (40 mg) by [place] capsule 00 :00 disease mouth MD daily. Susan broussard [facility] montelukast Yes TAKE 1 Univ ers (SINGULAIR) 3-30 TABLET BY ity of 10 mg 00:00: MOUTH ONCE [place] tablet 00 DAILY MD Susan broussard [facility] montelukast Yes TAKE 1 Univ ers (SINGULAIR) 3-30 TABLET BY ity of 10 mg 00:00: MOUTH ONCE [place] tablet 00 DAILY MD [facility] [facility] mont[facility]uk[facility] Yes TAKE 1 Univ ers (SINGULAIR) 3-30 TABLET BY ity of 10 mg 00:00: MOUTH ONCE [place] tablet 00 DAILY MD Susan broussard [facility] pregabalin 2020- No Chronic 50mg Take 1 U nivers (LYRICA) 50 11-09 pain capsule ity of mg capsule 00:00: 00:00 (50 mg) by [place] 00 :00 mouth twice Anderso daily. n [facility] ammonium Yes APPLY Univers lactate [...] 25mg Take 1 U nivers (Lyrica) 25 208 08-06 back pain capsule ity of mg capsule 00:00: 00:00 (25 mg) by [place] 00 :00 mouth MD reeder Anderso daily. n [facility] Center ondansetron 2019-08- No Metastatic Take 1 Univers (Zofran) 8 2-17 08-06 cancer to tablet by ity of mg tablet 00:00: 00:00 the mouth [place] 00 :00 peritoneum every 8 MD hours on Anderso days 2, 3, n and 4 Cancer following Center chemothera py, then may take 1 tablet by mouth every 8 hours as needed for nausea or vomiting. prochlorper 2019-08- No Metastatic 10mg Take 1 Univers azine 10-06 cancer to tablet (10 it y of (Compazine) 00:00: 00:00 the mg) by Pieter as 10 mg 00 :00 peritoneum mouth MD tablet every 6 Anderso (six) n hours as Cancer needed for Center nausea or vomiting. umeclidiniu Yes 1{puff} Inhale 1 Univers m-vilantero 2-26 puff by ity o f L (Anoro 00:00: mouth [place] Ellipta) 00 every MD 62.5-25 evening. Anderso mcg/actuati n on [facility] Zamora umeclidiniu Yes 1{puff} Inhale 1 Univers m-vilantero 2-26 puff by ity o f L (Anoro 00:00: mouth [place] Ellipta) 00 every MD 62.5-25 evening. Anderso mcg/actuati n on [facility] Center umeclidiniu Yes 1{puff} Inhale 1 Univers m-vilantero 2-26 puff by ity o f L (Anoro 00:00: mouth [place] Ellipta) 00 every MD 62.5-25 evening. Anderso mcg/actuati n on [facility] Center clonazePAM Yes 1mg Take 1 mg Un paco (KlonoPIN) 8-20 by mouth ity o f 1 mg tablet 00:00: twice 00 daily. MD Susan broussard [facility] clonazePAM 2017- Yes 1mg Take 1 mg Un paco (KlonoPIN) 8-20 by mouth ity o f 1 mg tablet 00:00: twice 00 daily. MD Susan broussard [facility] clonazePAM 2017- Yes 1mg Take 1 Unive rs (KlonoPIN) 8-20 tablet (1 ity of 1 mg tablet 00:00[place] mg[place] mouth [place] reeder Andmayo daily. n Cancer Center Immunizations Ordered Filled Immunization Date Status Comments Sour e Immunization Name Name Pfizer SARS-CoV-2 2021-04-18 Completed Univer sity of Vaccination (Purple 00:00:00 Kim Kirkland [facility]) [facility] Pfizer SARS-CoV-2 2021-04-18 Completed Univers ity of Vaccination 00:00:00 Kim moreno [facility] Pfizer SARS-CoV-2 2021-04-18 Completed Univer [...] WEIGHT 2020-08-06 09:06:00 49.4 kg Systolic blood 2022-10-13 21:26:00 139 mm[Hg] Univer sity of pressure [facility] on [facility] Diastolic blood 2022-10-13 21:26:00 83 mm[Hg] Unive rsity of pressure [facility] Heart rate 2022-10-13 21:26:00 112 /min Universi ty of [facility] Body temperature 2022-10-13 21:26:00 36.61 Alysia Univ ersity of [facility] Respiratory rate 2022-10-13 21:26:00 18 /min Univ ersity Cici [facility] Body weight 2022-10-13 20:27:00 46.7 kg Universi ty of [facility] BMI 2022-10-13 20:27:00 21.91 kg/m2 Universi ty of Kim [facility] Oxygen saturation in 2022-09-07 19:12:11 100 /min University of Arterial blood by Kim bazan Pulse oximetry Cancer Center Systolic blood 2022-06-02 20:00:46 123 mm[Hg] Univer [...] /min University of Arterial blood by Kim ledezmaon Pulse oximetry [facility] Body weight 2022-01-27 17:45:00 51.1 kg Universi ty of [facility] BMI 2022-01-27 17:45:00 23.97 kg/m2 Universi ty of [facility] Body height 2022-01-27 17:45:00 146 cm [...] /min University of Arterial blood by Kim ledezmaon Pulse oximetry [facility] Procedures Procedure Date / Time Performing Clinician Source Performed CANCER ANTIGEN 125 2022-10-13 19:56[facility]/ 2022-10-13 19:56:00 [facility] BASIC METABOLIC PANEL, 2022-10-13 19:56:00 [facility] CAL[facility] BILIRUBIN TOTAL 2022-10-13 19:56:[address] [facility] ALANINE AMINOTRANSFERASE 2022-10-13 19:56:00 Viraj Cabrera [facility] ASPARTATE AMINOTRANSFERASE 2022-10-13 19:56:00 Viraj Cabrera [facility] Results CBC 2022-10-13 19:56:[address] [facility] MANUAL DIFFERENTIAL 2022-10-13 19:56:00 Viraj Cabrera [facility] GLUCOSE LEVEL 2022-10-13 19:56:[address] [facility] BLOOD UREA NITROGEN 2022-10-13 19:56:00 Viraj Cabrera [facility] ELECTROLYTE PANEL 2022-10-13 19:56:00 Viraj Cabrera [facility] SERUM CREATININE 2022-10-13 19:56:[address] [facility] .GLOMERULAR FILTRATION 2022-10-13 19:56:00 [facility] CALCIUM LEVEL TOTAL 2022-10-13 19:56:00 Viraj Cabrera [facility] URINALYSIS WITH 2022-10-13 19:19:00 Viraj Cabrera [facility] MICROSCOPIC IF INDICATED MD Vargas [facility] URINALYSIS MICROSCOPIC 2022-10-13 19:19:00 [facility] EXAM [facility] CANCER ANTIGEN 125 2022-09-28 17:02:00 Adriane Esparza [facility] COMPLETE BLOOD COUNT W/ 2022-09-28 17:02:00 [facility] DIFFERENTIAL [facility] BASIC METABOLIC PANEL, 2022-09-28 17:02:00 Adriane Esparza [facility] CALCIUM TOTAL [facility] BILIRUBIN TOTAL 2022-09-28 17:02:00 Beverly Adriane [facility] ALANINE AMINOTRANSFERASE 2022-09-28 17:02:00 Adriane Esparza [facility] ASPARTATE AMINOTRANSFERASE 2022-09-28 17:02:00 Adriane Esparza [facility] Results CBC 2022-09-28 17:02:00 Adriane Esparza [facility] MANUAL DIFFERENTIAL 2022-09-28 17:02:[address] [facility] GLUCOSE LEVEL 2022-09-28 17:02:00 Beverly [facility] BLOOD UREA NITROGEN 2022-09-28 17:02:[address] [facility] ELECTROLYTE PANEL 2022-09-28 17:02:00 [facility] SERUM CREATININE 2022-09-28 17:02:00 [facility] .GLOMERULAR FILTRATION 2022-09-28 17:02:00 Adriane Esparza [facility] RATE [facility] CALCIUM LEVEL TOTAL 2022-09-28 17:02:[address] [facility] CANCER ANTIGEN 125 2022-09-22 14:30:00 Viraj Cabrera [facility] COMPLETE BLOOD COUNT W/ 2022-09-22 14:30:00 [facility] DIFFERENTIAL [facility] BASIC METABOLIC PANEL, 2022-09-22 14:30:00 [facility] CALCIUM TOTAL [facility] BILIRUBIN TOTAL 2022-09-22 14:30:[address] [facility] ALANINE AMINOTRANSFERASE 2022-09-22 14:30:00 Viraj Cabrera [facility] ASPARTATE AMINOTRANSFERASE 2022-09-22 14:30:00 Viraj Cabrera [facility] Results CBC 2022-09-22 14:30:[address] [facility] MANUAL DIFFERENTIAL 2022-09-22 14:30:00 Viraj Cabrera [facility] GLUCOSE LEVEL 2022-09-22 14:30:[address] [facility] BLOOD UREA NITROGEN 2022-09-22 14:30:00 Viraj Cabrera [facility] ELECTROLYTE PANEL 2022-09-22 14:30:00 Viraj Cabrera [facility] SERUM CREATININE 2022-09-22 14:30:[address] [facility] .GLOMERULAR FILTRATION 2022-09-22 14:30:00 Viraj Cabrera [facility] RATE [facility] CALCIUM LEVEL TOTAL 2022-09-22 14:30:00 Viraj Cabrera [facility] PAIN MANAGEMENT 2022-09-07 19:14:54 Jacek Parrish [facility] PAIN MANAGEMENT ULTRASOUND 2022-09-01 17:27:56 Jacek Parrish [facility] CANCER ANTIGEN 125 2022-09-01 15:39:00 Viraj Cabrera [facility] COMPLETE BLOOD COUNT W/ 2022-09-01 15:39:00 Viraj Cabrera [facility] DIFFERENTIAL [facility] BASIC METABOLIC PANEL, 2022-09-01 15:39:00 [facility] CALCIUM TOTAL [facility] BILIRUBIN TOTAL 2022-09-01 15:39:[address] [facility] ALANINE AMINOTRANSFERASE 2022-09-01 15:39:00 Viraj Cabrera [facility] ASPARTATE AMINOTRANSFERASE 2022-09-01 15:39:00 Viraj Cabrera [facility] Results CBC 2022-09-01 15:39:[address] [facility] MANUAL DIFFERENTIAL 2022-09-01 15:39:00 Viraj Cabrera [facility] GLUCOSE LEVEL 2022-09-01 15:39:[address] [facility] BLOOD UREA NITROGEN 2022-09-01 15:39:00 Viraj Cabrera [facility] ELECTROLYTE PANEL 2022-09-01 15:39:00 Viraj Cabrera [facility] SERUM CREATININE 2022-09-01 15:39:[address] [facility] .GLOMERULAR FILTRATION 2022-09-01 15:39:00 [facility] [place] RATE [facility] CALCIUM LEVEL TOTAL 2022-09-01 15:39:00 Viraj Cabrera [facility] URINALYSIS WITH 2022-09-01 15:18:00 Viraj Cabrera [facility] MICROSCOPIC IF INDICATED MD [facility] CANCER ANTIGEN 125 2022-07-28 16:13:[address] [facility] COMPLETE BLOOD COUNT W/ 2022-07-28 16:13:00 Leana Morales [facility] DIFFERENTIAL [facility] BASIC METABOLIC PANEL, 2022-07-28 16:13:00 Leana Morales [facility] CALCIUM TOTAL [facility] BILIRUBIN TOTAL 2022-07-28 16:13:00 Leana Morales [facility] ALANINE AMINOTRANSFERASE 2022-07-28 16:13:00 Le[facility] ASPARTATE AMINOTRANSFERASE 2022-07-28 16:13:00 [facility] CBC 2022-07-28 16:13:00 Leana Morales [facility] MANUAL DIFFERENTIAL 2022-07-28 16:13:[address] [facility] GLUCOSE LEVEL 2022-07-28 16:13:00 Leana Morales [facility] BLOOD UREA NITROGEN 2022-07-28 16:13:[address] [facility] ELECTROLYTE PANEL 2022-07-28 16:13:00 Leana Morales [facility] SERUM CREATININE 2022-07-28 16:13:00 Carmen Leana [facility] .GLOMERULAR FILTRATION 2022-07-28 16:13:00 Leana Morales [facility] RATE [facility] CALCIUM LEVEL TOTAL 2022-07-28 16:13:[address] [facility] CT CHEST ABDOMEN PELVIS W 2022-07-27 17:04:06 [facility] CONTRAST [facility] POC CREATININE 2022-07-27 16:51:[address] [facility] XR SHOULDER COMPLETE 2 2022-07-21 12:45:00 CHEYENNE Ramesh [facility] Medical VIEWS MIN RIGHT [facility] URINALYSIS WITH 2022-06-02 19:49:00 Viraj Cabrera [facility] MICROSCOPIC IF INDICATED MD Vargas [facility] CANCER ANTIGEN 125 2022-06-02 19:43:00 Viraj Cabrera [facility] COMPLETE BLOOD COUNT W/ 2022-06-02 19:43:00 [facility] DIFFERENTIAL [facility] BASIC METABOLIC PANEL, 2022-06-02 19:43:00 [facility] CALCIUM TOTAL [facility] BILIRUBIN TOTAL 2022-06-02 19:43:[address] [facility] ALANINE AMINOTRANSFERASE 2022-06-02 19:43:00 Viraj Cabrera [facility] ASPARTATE AMINOTRANSFERASE 2022-06-02 19:43:00 Viraj Cabrera [facility] Results CBC 2022-06-02 19:43:[address] [facility] MANUAL DIFFERENTIAL 2022-06-02 19:43:00 Viraj Cabrera [facility] GLUCOSE LEVEL 2022-06-02 19:43:[address] [facility] BLOOD UREA NITROGEN 2022-06-02 19:43:00 Viraj Cabrera [facility] ELECTROLYTE PANEL 2022-06-02 19:43:00 Viraj Cabrera [facility] SERUM CREATININE 2022-06-02 19:43:[address] [facility] .GLOMERULAR FILTRATION 2022-06-02 19:43:00 Vir[facility] RATE [facility] CALCIUM LEVEL TOTAL 2022-06-02 19:43:00 Viraj Cabrera [facility] CANCER ANTIGEN 125 2022-05-12 19:13:[address] [facility] COMPLETE BLOOD COUNT W/ 2022-05-12 19:13:00 Adriane Esparza [facility] DIFFERENTIAL [facility] BASIC METABOLIC PANEL, 2022-05-12 19:13:00 Adriane Esparza [facility] CALCIUM TOTAL [facility] BILIRUBIN TOTAL 2022-05-12 19:13:00 Adriane Esparza [place] [facility] ALANINE AMINOTRANSFERASE 2022-05-12 19:13:00 [facility] ASPARTATE AMINOTRANSFERASE 2022-05-12 19:13:00 [facility] Results CBC 2022-05-12 19:13:00 Adriane Esparza [place] [facility] MANUAL DIFFERENTIAL 2022-05-12 19:13:[address] [facility] GLUCOSE LEVEL 2022-05-12 19:13:00 Adriane Esparza o [facility] BLOOD UREA NITROGEN 2022-05-12 19:13:[address] [facility] ELECTROLYTE PANEL 2022-05-12 19:13:00 [facility] SERUM CREATININE 2022-05-12 19:13:00 [facility] .GLOMERULAR FILTRATION 2022-05-12 19:13:00 Adriane Esparza [facility] RATE [facility] CALCIUM LEVEL TOTAL 2022-05-12 19:13:[address] [facility] URINE CULTURE 2022-04-21 17:44:00 Adriane Esparza [place] [facility] URINALYSIS WITH 2022-04-21 17:44:00 Beverly [facility] MICROSCOPIC IF INDICATED MD Vargas [facility] URINALYSIS MICROSCOPIC 2022-04-21 17:44:00 Adriane Esparza [facility] CT CHEST ABDOMEN PELVIS W 2022-04-21 01:00:01 [facility] WO CONTRAST [facility] POC CREATININE 2022-04-21 00:11:00 Zoe Escobar [facility] CANCER ANTIGEN 125 2022-04-20 23:06:00 Viraj Cabrera [facility] COMPLETE BLOOD COUNT W/ 2022-04-20 23:06:00 Viraj [facility] DIFFERENTIAL [facility] BASIC METABOLIC PANEL, 2022-04-20 23:06:00 Viraj Cabrera [facility] CALCIUM TOTAL [facility] ALANINE AMINOTRANSFERASE 2022-04-20 23:06:00 Viraj Cabrera [facility] ASPARTATE AMINOTRANSFERASE 2022-04-20 23:06:00 Viraj Cabrera [facility] MAGNESIUM LEVEL 2022-04-20 23:06:[address] [facility] COMPREHENSIVE METABOLIC 2022-04-20 23:06:00 Zoe Escobar [facility] PANEL [facility] Results CBC 2022-04-20 23:06:[address] [facility] MANUAL DIFFERENTIAL 2022-04-20 23:06:00 Viraj Cabrera [facility] GLUCOSE LEVEL 2022-04-20 23:06:[address] [facility] BLOOD UREA NITROGEN 2022-04-20 23:06:00 Viraj Cabrera [facility] ELECTROLYTE PANEL 2022-04-20 23:06:00 Viraj Cabrera [facility] SERUM CREATININE 2022-04-20 23:06:[address] [facility] .GLOMERULAR FILTRATION 2022-04-20 23:06:00 [facility] [place] [facility] CALCIUM LEVEL TOTAL 2022-04-20 23:06:00 Viraj Cabrera [facility] ALBUMIN LEVEL 2022-04-20 23:06:00 Zoe Escobar [place] [facility] ALKALINE PHOSPHATASE 2022-04-20 23:06:00 Zoe Escobar [facility] TOTAL PROTEIN 2022-04-20 23:06:00 Zoe Escobar [place] [facility] FRACTIONATED BILIRUBIN 2022-04-20 23:06:00 Zoe Escobar [facility] URINALYSIS WITH 2022-03-24 21:10:00 Zoe Escobar [facility] MICROSCOPIC IF INDICATED MD Vargas [facility] URINALYSIS MICROSCOPIC 2022-03-24 21:10:00 Zoe Escobar [facility] CANCER ANTIGEN 125 2022-03-24 19:12:00 Viraj Cabrera [facility] COMPLETE BLOOD COUNT W/ 2022-03-24 19:12:00 Viraj [facility] DIFFERENTIAL [facility] BASIC METABOLIC PANEL, 2022-03-24 19:12:00 Vir[facility] CALCIUM TOTAL [facility] BILIRUBIN TOTAL 2022-03-24 19:12:[address] [facility] ALANINE AMINOTRANSFERASE 2022-03-24 19:12:00 Viraj Cabrera [facility] ASPARTATE AMINOTRANSFERASE 2022-03-24 19:12:00 Viraj Cabrera [facility] MAGNESIUM LEVEL 2022-03-24 19:12:[address] [facility] Results CBC 2022-03-24 19:12:[address] [facility] MANUAL DIFFERENTIAL 2022-03-24 19:12:00 Viraj Cabrera [facility] GLUCOSE LEVEL 2022-03-24 19:12:[address] [facility] BLOOD UREA NITROGEN 2022-03-24 19:12:00 iVraj Cabrera [facility] ELECTROLYTE PANEL 2022-03-24 19:12:00 Viraj Cabrera [facility] SERUM CREATININE 2022-03-24 19:12:[address] [facility] .GLOMERULAR FILTRATION 2022-03-24 19:12:00 Viraj Cabrera [facility] RATE [facility] CALCIUM LEVEL TOTAL 2022-03-24 19:12:00 Viraj Cabrera [facility] CANCER ANTIGEN 125 2022-02-24 16:21:00 [facility] W/ 2022-02-24 16:21:00 Adriane Esparza [facility] DIFFERENTIAL [facility] BASIC METABOLIC PANEL, 2022-02-24 16:21:00 Adriane Esparza [facility] CALCIUM TOTAL [facility] BILIRUBIN TOTAL 2022-02-24 16:21:00 Adriane Esparza o [facility] ALANINE AMINOTRANSFERASE 2022-02-24 16:21:00 [facility] ASPARTATE AMINOTRANSFERASE 2022-02-24 16:21:00 Adriane [facility] MAGNESIUM LEVEL 2022-02-24 16:21:00 Adriane Esparza o [facility] Results CBC 2022-02-24 16:21:00 Adriane Esparza o [facility] MANUAL DIFFERENTIAL 2022-02-24 16:21:[address] [facility] GLUCOSE LEVEL 2022-02-24 16:21:00 Adriane Esparza o [facility] BLOOD UREA NITROGEN 2022-02-24 16:21:00 [facility] 2022-02-24 16:21:00 Adriane Esparza [facility] SERUM CREATININE 2022-02-24 16:21:00 Adriane Esparza [facility] .GLOMERULAR FILTRATION 2022-02-24 16:21:00 Adriane Esparza [facility] RATE [facility] CALCIUM LEVEL TOTAL 2022-02-24 16:21:00 [facility] COMPLETE BLOOD COUNT W/ 2022-02-17 20:32:00 Adriane Esparza [facility] DIFFERENTIAL [facility] MAGNESIUM LEVEL 2022-02-17 20:32:00 Adriane Esparza [place] [facility] COMPREHENSIVE METABOLIC 2022-02-17 20:32:00 Adriane Esparza [facility] PANEL [facility] TYPE AND SCREEN 2022-02-17 20:32:00 Adriane Esparza [place] [facility] CONFIRM ABORH TYPE 2022-02-17 20:32:00 Adriane Esparza y [facility] Results CBC 2022-02-17 20:32:00 Beverly [facility] o [facility] MANUAL DIFFERENTIAL 2022-02-17 20:32:00 [facility] 2022-02-17 20:32:00 Adriane Esparza [place] [facility] BLOOD UREA NITROGEN 2022-02-17 20:32:[address] [facility] ELECTROLYTE PANEL 2022-02-17 20:32:00 Adriane Esparza [facility] SERUM CREATININE 2022-02-17 20:32:00 Beverly Adriane [facility] .GLOMERULAR FILTRATION 2022-02-17 20:32:00 Adriane Esparza [facility] CALCIUM LEVEL TOTAL 2022-02-17 20:32:00 Adriane Esparza [facility] ALBUMIN LEVEL 2022-02-17 20:32:00 Adriane Esparza [facility] ALKALINE PHOSPHATASE 2022-02-17 20:32:00 Adriane Esparza [facility] ALANINE AMINOTRANSFERASE 2022-02-17 20:32:[address] [facility] ASPARTATE AMINOTRANSFERASE 2022-02-17 20:32:00 [facility] TOTAL PROTEIN 2022-02-17 20:32:00 Beverly Adriane [facility] FRACTIONATED BILIRUBIN 2022-02-17 20:32:00 Adriane Esparza [facility] ABORH 2022-02-17 20:32:00 Beverly [facility] ANTIBODY SCREEN 2022-02-17 20:32:00 Beverly [facility] CLOT EXPIRATION DATE 2022-02-17 20:32:00 Adriane Esparza [facility] TMP INTERPRETATION 2022-02-17 20:32:00 Adriane Esparza [facility] ANTIBODY SCREEN NEGATIVE [facility] PAIN MANAGEMENT 2022-02-17 19:36:26 Jacek Parrish [facility] CANCER ANTIGEN 125 2022-01-27 14:33:00 [facility]PLE[facility]LOOD [facility] W/ 2022-01-27 14:33:00 Nick Mccallum [facility] DIFFERENTIAL [facility] BASIC METABOLIC PANEL, 2022-01-27 14:33:00 Nick Mccallum [facility] CALCIUM TOTAL [facility] BILIRUBIN TOTAL 2022-01-27 14:33:00 Nick Mccallum [facility] ALANINE AMINOTRANSFERASE 2022-01-27 14:33:00 Nick Mccallum Uni [facility] ASPARTATE AMINOTRANSFERASE 2022-01-27 14:33:00 Nick Mccallum [facility] MAGNESIUM LEVEL 2022-01-27 14:33:00 Nick Mccallum o [facility] Results CBC 2022-01-27 14:33:00 Nick Mccallum [place] [facility] Center MANUAL DIFFERENTIAL 2022-01-27 14:33:[address] [facility] GLUCOSE LEVEL 2022-01-27 14:33:00 Nick Mccallum [place] f [facility] BLOOD UREA NITROGEN 2022-01-27 14:33:[address] [facility] ELECTROLYTE PANEL 2022-01-27 14:33:00 Nick Mccallum [facility] SERUM CREATININE 2022-01-27 14:33:00 Nick Mccallum [facility] .GLOMERULAR FILTRATION 2022-01-27 14:33:00 Nick Mccallum [facility] [place] RATE [facility] CALCIUM LEVEL TOTAL 2022-01-27 14:33:[address] [facility] CT CHEST ABDOMEN PELVIS W 2022-01-18 01:06:45 [facility] POC CREATININE 2022-01-17 22:52:00 Adriane Esparza [place] [facility] CANCER ANTIGEN 125 2021-11-04 13:45:00 Nick Mccallum [facility] y of [facility] COMPLETE BLOOD COUNT W/ 2021-11-04 13:45:00 Nick Mccallum [facility] [place] DIFFERENTIAL [facility] BASIC METABOLIC PANEL, 2021-11-04 13:45:00 Nick Mccallum [facility] [place] CALCIUM TOTAL [facility] BILIRUBIN TOTAL 2021-11-04 13:45:00 Nick Mccallum [place] f [facility] ALANINE AMINOTRANSFERASE 2021-11-04 13:45:00 [facility] ASPARTATE AMINOTRANSFERASE 2021-11-04 13:45:00 [facility] MAGNESIUM LEVEL 2021-11-04 13:45:00 Nick Mccallum o f [facility] URINALYSIS WITH 2021-11-04 13:45:00 Nick Mccallum [facility] MICROSCOPIC IF INDICATED MD Vargas [facility] Results CBC 2021-11-04 13:45:00 Nick Mccallum o [facility] Center MANUAL DIFFERENTIAL 2021-11-04 13:45:[address] [facility] GLUCOSE LEVEL 2021-11-04 13:45:00 Nick Mccallum [place] [facility] Center BLOOD UREA NITROGEN 2021-11-04 13:45:[address] [facility] ELECTROLYTE PANEL 2021-11-04 13:45:00 Nick Mccallum [facility] SERUM CREATININE 2021-11-04 13:45:00 Nick Mccallum [facility] .GLOMERULAR FILTRATION 2021-11-04 13:45:00 Nick Mccallum [facility] [place] RATE [facility] CALCIUM LEVEL TOTAL 2021-11-04 13:45:[address] [facility] URINALYSIS MICROSCOPIC 2021-11-04 13:45:00 Nick Mccallum [facility] CANCER ANTIGEN 125 2021-10-14 19:43:00 Nick Mccallum y [facility] COMPLETE BLOOD COUNT W/ 2021-10-14 19:43:00 [facility]um [facility] DIFFERENTIAL [facility] BASIC METABOLIC PANEL, 2021-10-14 19:43:00 Nick Mccallum [facility] CALCIUM TOTAL [facility] BILIRUBIN TOTAL 2021-10-14 19:43:00 Nick Mccallum o [facility] Center ALANINE AMINOTRANSFERASE 2021-10-14 19:43:00 [facility] ASPARTATE AMINOTRANSFERASE 2021-10-14 19:43:00 [facility]um [facility] MAGNESIUM LEVEL 2021-10-14 19:43:00 Nick Mccallum o f [facility] Results CBC 2021-10-14 19:43:00 Nick Mccallum [place] f [facility] MANUAL DIFFERENTIAL 2021-10-14 19:43:00 Nick Mccallum [facility] Center GLUCOSE LEVEL 2021-10-14 19:43:00 Nick Mccallum [place] f [facility] BLOOD UREA NITROGEN 2021-10-14 19:43:[address] [facility] ELECTROLYTE PANEL 2021-10-14 19:43:00 Nick Mccallum [facility] SERUM CREATININE 2021-10-14 19:43:00 Nick Mccallum [facility] .GLOMERULAR FILTRATION 2021-10-14 19:43:00 Nick Mccallum [facility] [place] RATE [facility] CALCIUM LEVEL TOTAL 2021-10-14 19:43:[address] [facility] CT CHEST ABDOMEN PELVIS W 2021-10-04 19:16:46 [facility]um [facility] [place] CONTRAST [facility] CANCER ANTIGEN 125 2021-10-04 16:01:00 Nick Mccallum y of [facility] COMPLETE BLOOD COUNT W/ 2021-10-04 16:01:00 Nick Mccallum [facility] [place] DIFFERENTIAL [facility] BASIC METABOLIC PANEL, 2021-10-04 16:01:00 Nick Mccallum [facility] [place] CALCIUM TOTAL [facility] BILIRUBIN TOTAL 2021-10-04 16:01:00 Nick Mccallum o f [facility] ALANINE AMINOTRANSFERASE 2021-10-04 16:01:00 Nick Mccallum Uni versity of [facility] ASPARTATE AMINOTRANSFERASE 2021-10-04 16:01:00 [facility] MAGNESIUM LEVEL 2021-10-04 16:01:00 Nick Mccallum [place] [facility] Results CBC 2021-10-04 16:01:00 Nick Mccallum o f [facility] MANUAL DIFFERENTIAL 2021-10-04 16:01:00 Nick Mccallum [facility] Center GLUCOSE LEVEL 2021-10-04 16:01:00 Nick Mccallum o f [facility] BLOOD UREA NITROGEN 2021-10-04 16:01:[address] [facility] ELECTROLYTE PANEL 2021-10-04 16:01:00 Nick Mccallum [facility] SERUM CREATININE 2021-10-04 16:01:00 Nick Mccallum [facility] .GLOMERULAR FILTRATION 2021-10-04 16:01:00 Nick Mccallum [facility] RATE [facility] CALCIUM LEVEL TOTAL 2021-10-04 16:01:[address] [facility] URINALYSIS WITH 2021-09-14 19:53:00 Nick Mccallum [place] MICROSCOPIC IF INDICATED MD Vargas [facility] URINALYSIS MICROSCOPIC 2021-09-14 19:53:00 Nick Mccallum [facility] CANCER ANTIGEN 125 2021-09-14 19:50:[address] [facility] COMPLETE BLOOD COUNT W/ 2021-09-14 19:50:00 Nick Mccallum [facility] DIFFERENTIAL [facility] BASIC METABOLIC PANEL, 2021-09-14 19:50:00 Nick Mccallum [facility] CALCIUM TOTAL [facility] BILIRUBIN TOTAL 2021-09-14 19:50:00 Nick Mccallum [place] f [facility] ALANINE AMINOTRANSFERASE 2021-09-14 19:50:00 [facility] ASPARTATE AMINOTRANSFERASE 2021-09-14 19:50:00 [facility]um [facility] MAGNESIUM LEVEL 2021-09-14 19:50:00 Nick Mccallum [place] f [facility] Results CBC 2021-09-14 19:50:00 Nick Mccalulm [place] f [facility] MANUAL DIFFERENTIAL 2021-09-14 19:50:[address] [facility] GLUCOSE LEVEL 2021-09-14 19:50:00 Nick Mccallum [place] f [facility] BLOOD UREA NITROGEN 2021-09-14 19:50:[address] [facility] ELECTROLYTE PANEL 2021-09-14 19:50:00 Nick Mccallum [facility] SERUM CREATININE 2021-09-14 19:50:00 Nick Mccallum [facility] .GLOMERULAR FILTRATION 2021-09-14 19:50:00 Nick Mccallum [facility] RATE [facility] CALCIUM LEVEL TOTAL 2021-09-14 19:50:00 [facility] URINE CULTURE 2021-09-14 07:53:00 Nick Mccallum [place] f [facility] CANCER ANTIGEN 125 2021-08-24 15:43:00 Viraj Cabrera [facility] COMPLETE BLOOD COUNT W/ 2021-08-24 15:43:00 [facility] DIFFERENTIAL [facility] BASIC METABOLIC PANEL, 2021-08-24 15:43:00 [facility] CALCIUM TOTAL [facility] BILIRUBIN TOTAL 2021-08-24 15:43:[address] [facility] ALANINE AMINOTRANSFERASE 2021-08-24 15:43:00 Viraj Cabrera [facility] ASPARTATE AMINOTRANSFERASE 2021-08-24 15:43:00 Viraj Cabrera [facility] MAGNESIUM LEVEL 2021-08-24 15:43:[address] [facility] Results CBC 2021-08-24 15:43:[address] [facility] MANUAL DIFFERENTIAL 2021-08-24 15:43:00 Viraj Cabrera [facility] GLUCOSE LEVEL 2021-08-24 15:43:[address] [facility] BLOOD UREA NITROGEN 2021-08-24 15:43:00 Viraj Cabrera [facility] ELECTROLYTE PANEL 2021-08-24 15:43:00 Viraj Cabrera [facility] SERUM CREATININE 2021-08-24 15:43:00 [facility] .GLOMERULAR FILTRATION 2021-08-24 15:43:00 Viraj Cab[facility] [place] RATE [facility] CALCIUM LEVEL TOTAL 2021-08-24 15:43:00 Viraj Cabrera [facility] URINALYSIS WITH 2021-08-24 15:00:00 Viraj Cabrera [facility] MICROSCOPIC IF INDICATED MD Vargas ishmael [facility] URINALYSIS MICROSCOPIC 2021-08-24 15:00:00 Vir[facility] UPPER EXTREMITY LIMITED 2021-08-15 19:55:33 Viraj Cabrera [facility] LEFT [facility] PAIN MANAGEMENT 2021-08-03 20:08:00 Andrea, [facility] FLUOROSCOPY [facility] URINE CULTURE 2021-07-29 20:28:00 [facility] URINALYSIS WITH 2021-07-29 20:28:00 [facility] MICROSCOPIC IF INDICATED MD Vargas [facility] URINALYSIS MICROSCOPIC 2021-07-29 20:28:00 Nick Mccallum [facility] CANCER ANTIGEN 125 2021-07-29 15:58:00 Viraj Cabrera [facility] COMPLETE BLOOD COUNT W/ 2021-07-29 15:58:00 [facility] DIFFERENTIAL [facility] BASIC METABOLIC PANEL, 2021-07-29 15:58:00 [facility] CALCIUM TOTAL [facility] BILIRUBIN TOTAL 2021-07-29 15:58:[address] [facility] ALANINE AMINOTRANSFERASE 2021-07-29 15:58:00 Viraj Cabrera [facility] ASPARTATE AMINOTRANSFERASE 2021-07-29 15:58:00 Viraj Cabrera [facility] MAGNESIUM LEVEL 2021-07-29 15:58:[address] [facility] URINALYSIS WITH 2021-07-29 15:58:00 Viraj Cabrera [facility] MICROSCOPIC IF INDICATED MD Vargas [facility] Results CBC 2021-07-29 15:58:[address] [facility] MANUAL DIFFERENTIAL 2021-07-29 15:58:00 Viraj Cabrera [facility] GLUCOSE LEVEL 2021-07-29 15:58:[address] [facility] BLOOD UREA NITROGEN 2021-07-29 15:58:00 Viraj Cabrera [facility] ELECTROLYTE PANEL 2021-07-29 15:58:00 Viraj Cabrera [facility] SERUM CREATININE 2021-07-29 15:58:[address] [facility] .GLOMERULAR FILTRATION 2021-07-29 15:58:00 [facility] [place] R[facility] CALCIUM LEVEL TOTAL 2021-07-29 15:58:00 Viraj Cabrera [facility] URINALYSIS MICROSCOPIC 2021-07-29 15:58:00 Viraj Cabrera Un iversity of [facility] CT CHEST ABDOMEN PELVIS W 2021-07-27 19:59:34 Nick Mccallum Un i[facility]ity of [place] CONTRAST [facility] POC CREATININE 2021-07-27 19:09:00 Nick Mccallum [facility] URINE CULTURE 2021-07-08 15:43:14 Nick Mccallum [place] [facility] CANCER ANTIGEN 125 2021-07-08 15:21:[address] [facility] COMPLETE BLOOD COUNT W/ 2021-07-08 15:21:00 Nick Mccallum [facility] DIFFERENTIAL [facility] BASIC METABOLIC PANEL, 2021-07-08 15:21:00 Nick Mccallum [facility] CALCIUM TOTAL [facility] BILIRUBIN TOTAL 2021-07-08 15:21:00 Nick Mccallum [place] [facility] ALANINE AMINOTRANSFERASE 2021-07-08 15:21:00 Nick Mccallum Uni versity of [facility] ASPARTATE AMINOTRANSFERASE 2021-07-08 15:21:00 [facility] MAGNESIUM LEVEL 2021-07-08 15:21:00 Nick Mccallum [place] f [facility] Results CBC 2021-07-08 15:21:00 Nick Mccallum [place] [facility] Center MANUAL DIFFERENTIAL 2021-07-08 15:21:[address] [facility] GLUCOSE LEVEL 2021-07-08 15:21:00 Nick Mccallum [place] [facility] BLOOD UREA NITROGEN 2021-07-08 15:21:[address] [facility] ELECTROLYTE PANEL 2021-07-08 15:21:00 Nick Mccallum [facility] SERUM CREATININE 2021-07-08 15:21:00 Nick Mccallum [facility] .GLOMERULAR FILTRATION 2021-07-08 15:21:00 Nick Mccallum [facility] [place] RATE [facility] CALCIUM LEVEL TOTAL 2021-07-08 15:21:00 Nick Mccallum [facility] URINALYSIS WITH 2021-06-17 17:20:00 Adriane Esparza o [facility] MICROSCOPIC IF INDICATED MD Vargas [facility] URINALYSIS MICROSCOPIC 2021-06-17 17:20:00 Adriane Esparza [facility] CANCER ANTIGEN 125 2021-06-17 17:03:00 Adriane Esparza of [facility] COMPLETE BLOOD COUNT W/ 2021-06-17 17:03:00 Adriane Esparza [facility] DIFFERENTIAL [facility] BASIC METABOLIC PANEL, 2021-06-17 17:03:00 Adriane Esparza [facility] CALCIUM TOTAL [facility] BILIRUBIN TOTAL 2021-06-17 17:03:00 Beverly Adriane [facility] ALANINE AMINOTRANSFERASE 2021-06-17 17:03:00 [facility] ASPARTATE AMINOTRANSFERASE 2021-06-17 17:03:00 [facility]NESI[facility] LEVEL 2021-06-17 17:03:00 Beverly [facility] Results CBC 2021-06-17 17:03:00 Beverly Adriane [facility] MANUAL DIFFERENTIAL 2021-06-17 17:03:[address] [facility] GLUCOSE LEVEL 2021-06-17 17:03:00 Beverly Adriane [facility] BLOOD UREA NITROGEN 2021-06-17 17:03:[address] [facility] ELECTROLYTE PANEL 2021-06-17 17:03:00 Beverly [facility] SERUM CREATININE 2021-06-17 17:03:00 Beverly [facility] .GLOMERULAR FILTRATION 2021-06-17 17:03:00 Adriane Esparza [facility] RATE [facility] CALCIUM LEVEL TOTAL 2021-06-17 17:03:[address] [facility] URINE CULTURE 2021-05-13 14:16:00 Alessio [facility] CANCER ANTIGEN 125 2021-05-13 13:33:00 Viraj Cabrera [facility] COMPLETE BLOOD COUNT W/ 2021-05-13 13:33:00 [facility] DIFFERENTIAL [facility] BASIC METABOLIC PANEL, 2021-05-13 13:33:00 [facility] CALCIUM TOTAL [facility] BILIRUBIN TOTAL 2021-05-13 13:33:[address] [facility] ALANINE AMINOTRANSFERASE 2021-05-13 13:33:00 Viraj Cabrera [facility] ASPARTATE AMINOTRANSFERASE 2021-05-13 13:33:00 Viraj Cabrera [facility] MAGNESIUM LEVEL 2021-05-13 13:33:[address] [facility] URINALYSIS WITH 2021-05-13 13:33:00 Viraj Cabrera [facility] MICROSCOPIC IF INDICATED MD Vargas ishmael [facility] Results CBC 2021-05-13 13:33:[address] [facility] MANUAL DIFFERENTIAL 2021-05-13 13:33:00 Viraj Cabrera [facility] GLUCOSE LEVEL 2021-05-13 13:33:[address] [facility] BLOOD UREA NITROGEN 2021-05-13 13:33:00 Viraj Cabrera [facility] ELECTROLYTE PANEL 2021-05-13 13:33:00 Viraj Cabrera [facility] SERUM CREATININE 2021-05-13 13:33:[address] [facility] .GLOMERULAR FILTRATION 2021-05-13 13:33:00 [facility] RATE [facility] CALCIUM LEVEL TOTAL 2021-05-13 13:33:00 Viraj Cabrera [facility] URINALYSIS MICROSCOPIC 2021-05-13 13:33:00 Vir[facility] LUMBAR SPINE WO 2021-05-07 12:55:00 Jacek Parrish [facility] CANCER ANTIGEN 125 2021-04-22 15:40:00 [facility] COMPLETE BLOOD COUNT W/ 2021-04-22 15:40:00 Nick Mccallum [facility] DIFFERENTIAL [facility] BASIC METABOLIC PANEL, 2021-04-22 15:40:00 Nick Mccallum [facility] [place] CALCIUM TOTAL [facility] BILIRUBIN TOTAL 2021-04-22 15:40:00 Nick Mccallum [place] [facility] ALANINE AMINOTRANSFERASE 2021-04-22 15:40:00 [facility] ASPARTATE AMINOTRANSFERASE 2021-04-22 15:40:00 Nick [facility]um [facility] MAGNESIUM LEVEL 2021-04-22 15:40:00 Nick Mccallum [place] f [facility] GLUCOSE LEVEL 2021-04-22 15:40:00 Nick Mccallum [place] [facility] BLOOD UREA NITROGEN 2021-04-22 15:40:[address] [facility] ELECTROLYTE PANEL 2021-04-22 15:40:00 Nick Mccallum [facility] SERUM CREATININE 2021-04-22 15:40:00 Nick Mccallum [facility] .GLOMERULAR FILTRATION 2021-04-22 15:40:00 Nick Mccallum [facility] [place] RATE [facility] CALCIUM LEVEL TOTAL 2021-04-22 15:40:00 Nick Mccallum [facility] Results CBC 2021-04-22 15:40:00 Nick Mccallum o f [facility] MANUAL DIFFERENTIAL 2021-04-22 15:40:[address] [facility] URINALYSIS WITH 2021-04-22 15:16:00 Nick Mccallum o f [place] MICROSCOPIC IF INDICATED MD Vargas [facility] URINALYSIS MICROSCOPIC 2021-04-22 15:16:00 Nick Mccallum [facility] CT CHEST ABDOMEN PELVIS W 2021-04-20 17:48:00 [facility] [place] CONTRAST [facility] POC CREATININE 2021-04-20 16:29:00 Nick Mccallum [place] [facility] CANCER ANTIGEN 125 2021-03-25 14:32:[address] [facility] COMPLETE BLOOD COUNT W/ 2021-03-25 14:32:00 Nick Mccallum [facility] [place] DIFFERENTIAL [facility] BASIC METABOLIC PANEL, 2021-03-25 14:32:00 Nick Mccallum [facility] [place] CALCIUM TOTAL [facility] BILIRUBIN TOTAL 2021-03-25 14:32:00 AlessioNick [place] o [facility] ALANINE AMINOTRANSFERASE 2021-03-25 14:32:00 [facility]um [facility] ASPARTATE AMINOTRANSFERASE 2021-03-25 14:32:00 [facility]um [facility] MAGNESIUM LEVEL 2021-03-25 14:32:00 Nick Mccallum [place] [facility] Results CBC 2021-03-25 14:32:00 Nick Mccallum [facility] MANUAL DIFFERENTIAL 2021-03-25 14:32:[address] [facility] GLUCOSE LEVEL 2021-03-25 14:32:00 Nick Mccallum [facility] BLOOD UREA NITROGEN 2021-03-25 14:32:[address] [facility] ELECTROLYTE PANEL 2021-03-25 14:32:00 Alessio [facility] SERUM CREATININE 2021-03-25 14:32:00 Alessio [facility] .GLOMERULAR FILTRATION 2021-03-25 14:32:00 Nick Mccallum [facility] [place] RATE [facility] CALCIUM LEVEL TOTAL 2021-03-25 14:32:[address] [facility] URINALYSIS WITH 2021-03-04 13:29:00 roxana [facility] MICROSCOPIC IF INDICATED MD Sam moreno [facility] CANCER ANTIGEN 125 2021-03-04 13:29:[address] [facility] COMPLETE BLOOD COUNT W/ 2021-03-04 13:29:00 Adriane [facility]za [facility] DIFFERENTIAL [facility] BASIC METABOLIC PANEL, 2021-03-04 13:29:00 Adriane Esparza [facility] CALCIUM TOTAL [facility] BILIRUBIN TOTAL 2021-03-04 13:29:00 Adriane Esparza [place] [facility] ALANINE AMINOTRANSFERASE 2021-03-04 13:29:00 [facility] ASPARTATE AMINOTRANSFERASE 2021-03-04 13:29:00 Adriane [facility] MAGNESIUM LEVEL 2021-03-04 13:29:00 Adriane Esparza [facility] Results CBC 2021-03-04 13:29:00 Adriane Esparza [facility] MANUAL DIFFERENTIAL 2021-03-04 13:29:[address] [facility] GLUCOSE LEVEL 2021-03-04 13:29:00 Adriane Esparza [facility] BLOOD UREA NITROGEN 2021-03-04 13:29:00 Adriane Esparza [facility] ELECTROLYTE PANEL 2021-03-04 13:29:00 Adriane Esparza [facility] SERUM CREATININE 2021-03-04 13:29:00 Adriane Esparza [facility] .GLOMERULAR FILTRATION 2021-03-04 13:29:00 Adriane Esparza [facility] RATE [facility] CALCIUM LEVEL TOTAL 2021-03-04 13:29:00 Adriane Esparza [facility] URINALYSIS MICROSCOPIC 2021-03-04 13:29:00 Adriane Esparza [facility] URINE CULTURE 2021-02-25 15:41:00 [facility] CANCER ANTIGEN 125 2021-02-25 14:48:00 Unke, [facility] W/ 2021-02-25 14:48:00 Adriane Esp[facility]za [facility] DIFFERENTIAL [facility] BASIC METABOLIC PANEL, 2021-02-25 14:48:00 Adriane Esparza [facility] CALCIUM TOTAL [facility] BILIRUBIN TOTAL 2021-02-25 14:48:00 Adriane Esparza [place] [facility] ALANINE AMINOTRANSFERASE 2021-02-25 14:48:00 [facility] ASPARTATE AMINOTRANSFERASE 2021-02-25 14:48:00 [facility] MAGNESIUM LEVEL 2021-02-25 14:48:00 Adriane Esparza [facility] Results CBC 2021-02-25 14:48:00 Adriane Esparza [facility] MANUAL DIFFERENTIAL 2021-02-25 14:48:[address] [facility] GLUCOSE LEVEL 2021-02-25 14:48:00 Adriane Esparza [facility] BLOOD UREA NITROGEN 2021-02-25 14:48:[address] [facility] ELECTROLYTE PANEL 2021-02-25 14:48:00 Adriane Esparza [facility] SERUM CREATININE 2021-02-25 14:48:00 Beverly Adriane [facility] .GLOMERULAR FILTRATION 2021-02-25 14:48:00 Adriane Esparza [facility] RATE [facility] CALCIUM LEVEL TOTAL 2021-02-25 14:48:[address] [facility] URINALYSIS WITH 2021-02-25 13:41:00 Adriane Esparza [facility] MICROSCOPIC IF INDICATED MD Vargas [facility] URINALYSIS MICROSCOPIC 2021-02-25 13:41:00 Adriane Esparza [facility] URINALYSIS WITH 2021-02-18 13:23:00 Adriane Esparza [facility] MICROSCOPIC IF INDICATED MD Vargas [facility] CANCER ANTIGEN 125 2021-02-18 13:23:00 [facility]PLE[facility]LOOD [facility] W/ 2021-02-18 13:23:00 [facility] DI[facility] BASIC METABOLIC PANEL, 2021-02-18 13:23:00 Adriane Esparza [facility] CALCIUM TOTAL [facility] BILIRUBIN TOTAL 2021-02-18 13:23:00 Adriane Esparza [facility] ALANINE AMINOTRANSFERASE 2021-02-18 13:23:00 [facility] ASPARTATE AMINOTRANSFERASE 2021-02-18 13:23:00 [facility] MAGNESIUM LEVEL 2021-02-18 13:23:00 Adriane Esparza [facility] Results CBC 2021-02-18 13:23:00 Adriane Esparza [facility] MANUAL DIFFERENTIAL 2021-02-18 13:23:[address] [facility] GLUCOSE LEVEL 2021-02-18 13:23:00 Adriane Esparza [facility] BLOOD UREA NITROGEN 2021-02-18 13:23:[address] [facility] ELECTROLYTE PANEL 2021-02-18 13:23:00 Adriane Esparza [facility] SERUM CREATININE 2021-02-18 13:23:00 Adriane Esparza [facility] .GLOMERULAR FILTRATION 2021-02-18 13:23:00 Adriane Esparza [facility] RATE [facility] CALCIUM LEVEL TOTAL 2021-02-18 13:23:00 [facility] URINALYSIS MICROSCOPIC 2021-02-18 13:23:00 Adriane Esparza [facility] Plan of Care Planned Activity Planned Date Details Comments Source Future Scheduled 2022-10-16 COVID-19 Vaccination [facility] [place] [facility] 08:46:20 (2 - Pfizer risk MD [facility]) [code = Center COVID-19 Vaccination (2 - Pfizer risk series)] Future Scheduled 2022-08-[address] [facility] Test 00:00:00 (12+) [code = Medical Center DEPRESSION SCREENING (12+)] Future Scheduled 2022-08-20 FALLS RISK SCREENING [facility] Test 00:00:00 [code = FALLS RISK Medical C enter SCREENING] Future Scheduled 2022-06-06 COVID-19 Vaccination [facility] [place] [facility] 07:25:25 (2 - Pfizer risk MD [facility]) [code = Center COVID-19 Vaccination (2 - Pfizer risk series)] Future Scheduled 2022-04-[address] [facility] Test 00:00:00 (#1) [code = [facility] INFLUENZA VACCINE (#1)] Future Scheduled 2022-04-[address] [facility] Test 00:00:00 (#1) [code = [facility] INFLUENZA VACCINE (#1)] Future Scheduled 2022-02-10 COVID-19 Vaccination [facility] [place] [facility] 06:51:44 (2 - Pfizer risk MD [facility] series) [code = Center COVID-19 Vaccination (2 - Pfizer risk series)] Future Scheduled 2021-08-[address] [facility] 00:00:00 WELLNESS (YEAR 2 or Medical Center FIRST YEAR if no IPPE) [code = MEDICARE ANNUAL WELLNESS (YEAR 2 or FIRST YEAR if no IPPE)] Future Scheduled 2021-08-[address] [...] 00:00:00 (1 - PCV) [code = Medical nter PNEUMOCOCCAL 65+ YRS (1 - PCV)] Future Scheduled 2000 PNEUMOCOCCAL 65+ YRS [facility] Test 00:00:00 (1 - PCV) [code = Medical Ce nter PNEUMOCOCCAL 65+ YRS (1 - PCV)] Future Scheduled 1985 SHINGLES VACCINES ([address] [facility] Test 00:00:00 of 2) [code = Medical Center SHINGLES VACCINES (1 of 2)] Future Scheduled 1985 SHINGLES VACCINES ([address] [facility] Test 00:00:00 of 2) [code = Medical Center SHINGLES VACCINES (1 of 2)] Future Scheduled 1954 DTAP/TDAP/TD VACCINES [facility] 00:00:00 (1 - Tdap) [code = Medical C enter DTAP/TDAP/TD VACCINES (1 - Tdap)] Future Scheduled 1954 DTAP/TDAP/TD VACCINES [facility] 00:00:00 (1 - Tdap) [code = Medical C enter DTAP/TDAP/TD VACCINES (1 - Tdap)] Future Scheduled [address] [facility] Test 00:00:00 Counseling and Medical Cente r Screening (12+) [code = Tobacco Cessation Counseling and Screening (12+)] Future Scheduled 1936-03-15 COVID-19 VACCINE (#1) [facility] 00:00:00 [code = COVID-[address] VACCINE (#1)] Future Scheduled 1936-03-15 COVID-19 VACCINE (#1) [facility] 00:00:00 [code = COVID-[address] VACCINE (#1)] Encounters Start End Encounter Admission Attending Care Care Encounter Source Date/Time Date/Time Type Type Clinicians Facility Department ID 2022-09-19 Outpatient SYSTEM, [facility] [id number] 08:52:13 PROVIDER Kevin o n 2022-08-09 Outpatient SYSTEM, [facility] [id number] 10:51:43 PROVIDER Kevin o n 2020-11-23 Outpatient SYSTEM, [facility] [id number] 10:39:51 PROVIDER Kevin o n 2020-10-16 Outpatient SYSTEM, [facility]U [id number] 13:32:25 PROVIDER Kevin o n 2020-09-14 Outpatient [facility], AIMEE YU [id number] 16:02:01 PROVIDER Kevin broussard 2022-10-13 2022-10-13 Outpatient CARLOS MEDRANOADRIANE OROURKE AIMEE MDA [id number] 15:21:27 15:48:15 Kevinjuan broussard 2022-10-13 2022-10-13 Clinical Adriane Esparza 1.2.840.1 [id number] [facility] 13:15:00 15:48:15 Support Dodie Crowleyol A 86781.1.1 ity of 3.412.2.7 [place] .3.258091 .8 [facility] 2022-10-13 2022-10-13 Outpatient CARLOS CABRERA MDA MDA [id number] 14:16:38 15:12:12 VIRAJ broussard 2022-10-13 2022-10-13 Follow-Up Viraj Cabrera 1.2.840.1 [id number] [facility] 13:00:00 15:12:12 Leana Morales 32767.1.1 ity of 3.412.2.7 [place] .3.468610 MD Blanchard8 Kevin bobo [facility] 2022-10-13 2022-10-13 Outpatient CARLOS CABRERA MDA MDA [id number] 13:18:42 14:02:26 VIRAJ broussard 2022-10-13 2022-10-13 Clinical Viraj Cabrera 1.2.840.1 [id number] [facility] 12:30:00 14:02:26 Support Dallas Crowley A 94657.1.1 ity of 3.412.2.7 [place] .3.498012 MD Blanchard8 Susan broussard [facility] 2022-10-13 2022-10-13 Outpatient CARLOS CABRERA MDA MDA [id number] 13:19:16 14:00:47 VIRAJ broussard 2022-10-13 2022-10-13 Mercedes Berg2.840.1 [id number] [facility] 00:00:00 00:00:00 Management Hong 12982.1.1 ity of P 3.412.2.7 [place] .3.917345 MD Blanchard8 [facility] 2022-10-13 2022-10-13 Travel 1.2.840.1 1.2.582.118 [id number] Univers 00:00:00 00:00:00 17529.1.1 350.1.13.41 ity of 3.412.2.7 [place].698 [place] 084.8 MD Blanchard8 [facility] 2022-10-12 2022-10-12 Jamison Morales, 1.2.840.1 [id number] Univers 00:00:00 00:00:00 Only Leana 30547.1.1 ity of 3.412.2.7 [place] .3.109624 MD Blanchard8 [facility] 2022-10-12 2022-10-12 Jamison Cabrera 1.2.840.1 [id number] Univers 00:00:00 00:00:00 Only Viraj Perez 50027.1.1 it y of 3.412.2.7 [place] .3.888793 MD Blanchard8 [facility] 2022-09-28 2022-09-28 Outpatient CARLOS CABRERA MDA MDA [id number] 10:38:19 11:15:37 VIRAJ broussard 2022-09-28 2022-09-28 Virja Ely 1.2.840.1 [id number] [facility] 10:00:00 11:15:37 Support [place] Crowley 37124.1.1 ity of 3.412.2.7 [place] .3.890088 MD Blanchard8 [facility] 2022-09-28 2022-09-28 Outpatient ADRIANE FARRELL MDA, MDA [id number] 10:32:56 11:05:18 Kevin broussard 2022-09-28 2022-09-28 Adriane Davalos 1.2.840.1 [id number] Univers 00:00:00 00:00:00 08688.1.1 ity of 3.412.2.7 [place] .3.838098 MD Blanchard8 [facility] 2022-09-28 2022-09-28 Travel 1.2.840.1 1.2.089.626 [id number] Univers 00:00:00 00:00:00 72745.1.1 350.1.13.41 ity of 3.412.2.[place].698 [place]3.7660[place] 084.8 .8 [facility] 2022-09-22 2022-09-22 Outpatient CARLOS CABRERA MDA MDA [id number] 09:53:00 12:01:28 VIRAJ broussard 2022-09-22 2022-09-22 Infusion Viraj Cabrera 1.2.840.1 [id number] [facility] 09:45:00 12:01:28 Svetlana Rose 19612.1.1 ity of 3.412.2.7 [place] .3.834965 MD Blanchard8 [facility] 2022-09-22 2022-09-22 Outpatient CARLOS CABRERA MDA MDA [id number] 08:41:54 10:09:58 VIRAJ broussard 2022-09-22 2022-09-22 Follow-Up Viraj Cabrera 1.2.840.1 [id number] [facility] 08:30:00 10:09:58 Adriane Esparza 80416.1.1 ity of 3.412.2.7 [place] .3.398040 MD Blanchard8 Susan broussard [facility] 2022-09-22 2022-09-22 Outpatient CARLOS CABRERA MDA MDA [id number] 08:07:21 08:39:59 VIRAJ broussard 2022-09-22 2022-09-22 Outpatient CARLOS CABRERA MDA MDA [id number] 08:06:14 08:39:53 VIRAJ broussard 2022-09-22 2022-09-22 Clinical Viraj Cabrera 1.2.840.1 [id number] Univers 07:30:00 08:39:53 Support Verenice Dsouza 41866.1.1 ity of 3.412.2.7 [place] .3.632360 MD Blanchard8 [facility] 2022-09-22 2022-09-22 Travel 1.2.840.1 1.2.621.487 [id number] Univers 00:00:00 00:00:00 02161.1.1 350.1.13.41 ity of 3.412.2.[place].698 [place] .3.102909 084.8 MD Blanchard8 [facility] 2022-09-20 2022-09-20 Orders Deborah, 1.2.840.1 [id number] Univers 00:00:00 00:00:00 Only Viraj Perez 30877.1.1 it y of 3.412.2.7 [place] .3.284632 MD Blanchard8 [facility] 2022-09-08 2022-09-08 Telephone Marah, 1.2.840.1 [id number] Univers 00:00:00 00:00:00 Meche Newman 99606.1.1 it y of 3.412.2.7 [place] .3.769189 MD Blanchard8 [facility] 2022-09-07 2022-09-07 Jasson Parrish, 1.2.840.1 [id number] Univers 13:00:00 14:00:00 visit Jacek Leonard 85538.1.1 it y of 3.412.2.7 [place] .3.180321 MD Zelaya [facility] 2022-09-07 2022-09-07 Outpatient CARLOS PARRISH MDA MDA [id number] 13:14:54 13:14:54 JACEK bruossard 2022-09-07 2022-09-07 Outpatient CARLOS PARRISH MDA MDA [id number] 13:07:48 13:07:48 JACEK broussard 2022-09-07 2022-09-07 Travel 1.2.840.1 1.2.981.635 [id number] Univers 00:00:00 00:00:00 72976.1.1 350.1.13.41 ity of 3.412.2.7 [place]7.3.698 [place] .3.573827 084.8 MD Blanchard8 [facility] 2022-09-04 2022-09-04 Refill Francois, 1.2.840.1 [id number] Univers 00:00:00 00:00:00 Jacek Leonard 99450.1.1 it y of 3.412.2.7 [place] .3.650767 MD Blanchard8 [facility] 2022-09-01 2022-09-01 Infusion Viraj Cabrera 1.2.840.1 1020 [id number] Univers 15:00:00 15:00:00 Haily Joseph 63457.1.1 ity of 3.412.2.7 [place] .3.759078 MD Blanchard8 [facility] 2022-09-01 2022-09-01 Outpatient CARLOS CABRERA MDA MDA [id number] 12:27:27 14:29:55 VIRAJ broussard 2022-09-01 2022-09-01 Outpatient CARLOS PARRISH MDA MDA [id number] 11:20:00 12:39:13 JACEK broussard 2022-09-01 2022-09-01 Procedure Francois 1.2.840.1 [id number] [facility] 11:00:00 12:39:13 visit Jacek Leonard 93559.1.1 it y of 3.412.2.7 [place] .3.825049 MD Blanchard8 [facility] 2022-09-01 2022-09-01 Outpatient CARLOS CABRERA MDA MDA [id number] 09:50:56 11:47:36 VIRAJ broussard 2022-09-01 2022-09-01 Follow-Up Deborah 1.2.840.1 [id number] [facility] 09:30:00 11:47:36 Viraj Perez 56556.1.1 it y of 3.412.2.7 [place] .3.422332 [facility] 2022-09-01 2022-09-01 Outpatient CARLOS PARRISH MDA MDA [id number] 11:27:56 11:27:56 JACEK broussard 2022-09-01 2022-09-01 Outpatient CARLOS CABRERA MDA MDA [id number] 09:18:34 09:50:05 VIRAJ broussard 2022-09-01 2022-09-01 Clinical Viraj Cabrera 1.2.840.1 [id number] [facility] 09:00:00 09:50:05 Kelsie Peterson 97354.1.1 ity of 3.412.2.7 [place] .3.569223 MD Zelaya [facility] 2022-09-01 2022-09-01 Outpatient CARLOS CABRERA MDA MDA [id number] 09:17:52 09:48:54 VIRAJ broussard 2022-09-01 2022-09-01 Travel 1.2.840.1 1.2.669.504 [id number] Univers 00:00:00 00:00:00 68085.1.1 350.1.13.41 ity of 3.412.2.7 [place].3.698 [place] .3.456361 084.8 MD Zelaya [facility] 2022-08-31 2022-08-31 Jamison Morales 1.2.840.1 [id number] Univers 00:00:00 00:00:00 Only Leana 84319.1.1 ity of 3.412.2.7 [place] .3.831394 MD Zelaya [facility] 2022-08-31 2022-08-31 Jamison Cabrera 1.2.840.1 [id number] Univers 00:00:00 00:00:00 Only Viraj Perez 25106.1.1 it y of 3.412.2.7 [place] .3.462256 MD Zelaya [facility] 2022-08-03 2022-08-03 Orders Francois, 1.2.840.1 [id number] Univers 00:00:00 00:00:00 Only Jacek Leonard 15726.1.1 it y of 3.412.2.7 [place] .3.453220 .8 [facility] 2022-08-01 2022-08-01 Telephone Moya, 1.2.840.1 [id number] Univers 00:00:00 00:00:00 Gladis 42580.1.1 ity of 3.412.2.7 [place] .3.173935 .8 [facility] 2022-07-28 2022-07-28 Follow-Up Deborah 1.2.840.1 [id number] Univers 11:30:00 12:11:54 Viraj Perez 97510.1.1 it y of 3.412.2.7 [place] .3.826012 MD Blanchard8 [facility] 2022-07-28 2022-07-28 Outpatient CARLOS CABRERA MDA MDA [id number] 10:29:09 12:11:54 VIRAJ broussard 2022-07-28 2022-07-28 Outpatient CARLOS CABRERA [facility] MDA [id number] 09:28:51 12:11:15 VIRAJ broussard 2022-07-28 2022-07-28 Clinical Viraj Cabrera 1.2.840.1 [id number] [facility] 09:00:00 12:11:15 Support Guerita Tao 80412.1.1 ity of 3.412.2.7 [place] .3.853963 MD Blanchard8 [facility] 2022-07-28 2022-07-28 Outpatient CARLOS CABRERA MDA MDA [id number] 10:05:36 10:19:35 VIRAJ broussard 2022-07-28 2022-07-28 Travel 1.2.840.1 1.2.859.904 [id number] Univers 00:00:00 00:00:00 04883.1.1 350.1.13.41 ity of 3.412.2.7 [place].3.698 [place] .3.984191 084.8 MD Zelaya [facility] 2022-07-27 2022-07-27 Ancillary Deborah 1.2.840.1 [id number] Univers 09:45:00 12:10:00 Procedure Viraj Perez 17483.1.1 ity of 3.412.2.7 [place] .3.101695 MD Blanchard8 [facility] 2022-07-27 2022-07-27 Outpatient CARLOS CABRERA MDA MDA [id number] 09:44:08 09:44:08 VIRAJ broussard 2022-07-27 2022-07-27 Travel 1.2.840.1 1.2.734.281 [id number] Univers 00:00:00 00:00:00 96069.1.1 350.1.13.41 ity of 3.412.2.7 [place]7.3.698 [place] .3.087557 084.8 MD Zelaya [facility] 2022-07-21 2022-07-21 Outpatient JULIA [facility] [id number] SLS 12:14:35 23:59:00 JACEK CONTE 2022-07-21 2022-07-21 [facility] [id number] [facility] 12:00:00 23:59:00 [facility] Jacek conte [facility] 2022-07-21 2022-07-21 Follow-Up Francois 1.2.840.1 [id number] [facility] 10:00:00 10:30:00 Jacek Leonard 60435.1.1 it y of 3.412.2.7 [place] .3.497011 MD Zelaya [facility] 2022-07-21 2022-07-21 Outpatient CARLOS PARRISH MDA MDA [id number] MD 10:04:52 10:04:52 JACEK broussard 2022-07-21 2022-07-21 Outside Julia [facility] [id number] [facility] [address] 00:00:00 00:00:00 Jacek Dexter [facility] 2022-07-21 2022-07-21 Travel 1.2.840.1 1.2.892.679 [id number] Univers 00:00:00 00:00:00 51654.1.1 350.1.13.41 ity of 3.412.2.7 [place]7.3.698 [place] .3.268028 084.8 MD Blanchard8 [facility] 2022-07-18 2022-07-18 Orders Carmen 1.2.840.1 [id number] Univers 00:00:00 00:00:00 Only Leana 86580.1.1 ity of 3.412.2.7 [place] .3.052407 MD Blanchard8 [facility] 2022-06-27 2022-06-27 Orders Adriane Esparza 1.2.840.1 [id number] Univers 00:00:00 00:00:00 Only 24077.1.1 ity of 3.412.2.7 [place] .3.244733 MD Zelaya [facility] 2022-06-14 2022-06-14 Telephone Teri 1.2.840.1 [id number] Univers 00:00:00 00:00:00 November L 23777.1.1 ity of 3.412.2.7 [place] .3.608007 MD Zelaya [facility] 2022-06-02 2022-06-02 Office Viraj Cabrera 1.2.840.1 [id number] Univers 15:00:00 15:34:24 Visit Leana Morales 10326.1.1 ity of 3.412.2.7 [place] .3.640778 MD Zelaya [facility] 2022-06-02 2022-06-02 Office Viraj Beckwith 1.2.840.1 [id number] Univers 15:00:00 15:34:24 Visit CarmenLeana marquez 49305.1.1 ity of 3.412.2.7 [place] .3.342203 MD Zelaya [facility] 2022-06-02 2022-06-02 Clinical Viraj Cabrera 1.2.840.1 1020 [id number] [facility] 14:00:00 14:48:27 Support Alexus Dupree 98068.1.1 ity of 3.412.2.7 [place] .3.257491 MD Zelaya [facility] 2022-06-02 2022-06-02 Clinical Viraj Beckwith 1.2.840.1 1020 [id number] [facility] 14:00:00 14:48:27 Support Alexus Dupree 12170.1.1 ity of 3.412.2.7 [place] .3.197421 MD Zelaya [facility] 2022-06-02 2022-06-02 Outpatient CARLOS CABRERA [facility] [id number] 14:10:00 14:47:00 [facility] 2022-06-02 Travel 1.2.840.1 1.2.703.032 [id number] Univers 00:00:00 00:00:00 03603.1.1 350.1.13.41 ity of 3.412.2.[place].3.698 [place] .3.705284 084.8 MD Zelaya [facility] 2022-06-02 2022-06-02 Travel 1.2.840.1 1.2.411.863 [id number] [id number] Univers 00:00:00 00:00:00 20177.1.1 350.1.13.41 ity of 3.412.2.7 [place].3.698 [place] .3.288682 084.8 MD Zelaya [facility] 2022-05-12 2022-05-12 Office Adriane Esparza 1.2.840.1 [id number] [facility] 14:30:00 15:21:31 Visit Leana Morales 84789.1.1 ity of 3.412.2.7 [place] .3.152769 MD Blanchard8 [facility] 2022-05-12 2022-05-12 Office CARLOS Esparza Adriane 1.2.840.1 [id number] [facility] 14:30:00 15:21:31 Visit Leana Morales 69898.1.1 ity of 3.412.2.7 [place] .3.998166 MD Blanchard8 [facility] 2022-05-12 2022-05-12 Outpatient ADRIANE FARRELL [facility] [id number] 13:48:48 14:41:28 [facility] 2022-05-12 2022-05-12 Clinical Viraj Cabrera 1.2.840.1 1020 [id number] Univers 13:30:00 14:16:14 Support Tammie Hernández 37717.1.1 ity of 3.412.2.7 [place] .3.691296 MD Zelaya [facility] 2022-05-12 2022-05-12 Clinical Viraj Beckwith 1.2.840.1 1020 [id number] [facility] 13:30:00 14:16:14 Support Tammie Hernández 05170.1.1 ity of 3.412.2.7 [place] .3.723142 MD Zelaya [facility] 2022-05-12 2022-05-12 Travel 1.2.840.1 1.2.411.020 8309 [id number] Univers 00:00:00 00:00:00 64827.1.1 350.1.13.41 ity of 3.412.2.7 [place]7.3.698 [place] .3.805427 084.8 MD Zelaya [facility] 2022-05-12 2022-05-12 Jamison Morales 1.2.840.1 [id number] [facility] 00:00:00 00:00:00 Only Leana 47777.1.1 ity of 3.412.2.7 [place] .3.444914 MD Zelaya [facility] 2022-05-12 2022-05-12 Jamison Cabrera, 1.2.840.1 [id number] Univers 00:00:00 00:00:00 Only Viraj Perez 32617.1.1 it y of 3.412.2.7 [place] .3.659799 MD Blanchard8 [facility] 2022-05-12 2022-05-12 Travel 1.2.840.1 1.2.126.906 5705 [id number] Univers 00:00:00 00:00:00 12355.1.1 350.1.13.41 ity of 3.412.2.7 [place]7.3.698 [place]3.591438 084.8 MD Zelaya [facility] 2022-05-12 2022-05-12 Jamison Morales, 1.2.840.1 [id number] Univers 00:00:00 00:00:00 Only Leana 70912.1.1 ity of 3.412.2.7 [place] .3.285362 MD Blanchard8 [facility] 2022-05-12 2022-05-12 Jamison Cabrera, 1.2.840.1 [id number] Univers 00:00:00 00:00:00 Only Viraj Perez 43077.1.1 it y of 3.412.2.7 [place] .3.300260 MD Zelaya [facility] 2022-04-21 2022-04-21 Infusion Viraj Cabrera 1.2.840.1 [id number] Univers 11:30:00 14:54:12 Tammie Hernández 73403.1.1 ity of 3.412.2.7 [place] .3.403811 MD Zelaya [facility] 2022-04-21 2022-04-21 Infusion Viraj Beckwith 1.2.840.1 1020 [id number] Univers 11:30:00 14:54:12 Tammie Hernández 70293.1.1 ity of 3.412.2.7 [place] .3.396476 MD Blanchard8 [facility] 2022-04-21 2022-04-21 Office Deborah, 1.2.840.1 [id number] Univers 11:00:00 13:23:05 Visit Viraj Perez 27569.1.1 it y of 3.412.2.7 [place] .3.158198 MD Zelaya [facility] 2022-04-21 2022-04-21 Office Cabrera, 1.2.840.1 [id number] Univers 11:00:00 13:23:05 Visit Viraj Perez 26979.1.1 it y of 3.412.2.7 [place] .3.381692 MD Zelaya [facility] 2022-04-21 2022-04-21 Outpatient [facility] [id number] 12:44:03 12:47:36 [facility] 2022-04-21 2022-04-21 Orders Francois, 1.2.840.1 [id number] Univers 00:00:00 00:00:00 Only Jacek Leonard 12706.1.1 it y of 3.412.2.7 [place] .3.329500 MD Zelaya [facility] 2022-04-21 2022-04-21 Travel 1.2.840.1 1.2.465.293 [id number] Univers 00:00:00 00:00:00 32237.1.1 350.1.13.41 ity of 3.412.2.7 2.[place]7.3.698 [place] .3.431556 084.8 MD Zelaya [facility] 2022-04-21 2022-04-21 Refill Francois, 1.2.840.1 [id number] Univers 00:00:00 00:00:00 Jacek Leonard 42520.1.1 it y of 3.412.2.7 [place] .3.379131 MD Blanchard8 [facility] 2022-04-21 2022-04-21 Jamison Parrish, 1.2.840.1 [id number] Univers 00:00:00 00:00:00 Only Jacek Leonard 73049.1.1 it y of 3.412.2.7 [place] .3.842021 MD Blanchard8 [facility] 2022-04-21 2022-04-21 Travel 1.2.840.1 1.2.774.955 [id number] [facility] 00:00:00 00:00:00 61073.1.1 350.1.13.41 ity of 3.412.2.7 2.[place].7.3.698 [place] .3.042271 084.8 MD Blanchard8 [facility] 2022-04-21 2022-04-21 Refill Francois, 1.2.840.1 [id number] Univers 00:00:00 00:00:00 Jacek Leonard 27295.1.1 it y of 3.412.2.7 [place] .3Lo414597 MD Blanchard8 [facility] 2022-04-20 2022-04-20 [facility], 1.2.840.1 [id number] Univers 18:05:00 23:59:00 Encounter Zoe D 03945.1.1 it y of 3.412.2.7 [place] .3.755099 MD Blanchard8 [facility] 2022-04-20 2022-04-20 [facility] 1.2.840.1 [id number] Univers 18:05:00 23:59:00 Encounter Zoe D 44865.1.1 it y of 3.412.2.7 [place] .3Lo185479 MD Blanchard8 [facility] 2022-04-20 2022-04-20 [facility] Viraj Cabrera 1.2.840.1 1010 95506 [id number] Univers 17:19:29 18:04:00 Encounter Hirth, Bhumarat S 62625.1.1 ity of 3.412.2.7 [place] .3.372100 MD Blanchard8 [facility] 2022-04-20 2022-04-20 Hospital Viraj Beckwith 1.2.840.1 [id number] Univers 17:19:29 18:04:00 Encounter Rena Levi S 97931.1.1 ity of 3.412.2.7 [place] .3.148717 MD Blanchard8 [facility] 2022-04-20 2022-04-20 [facility] 1.2.840.1 [id number] 11963 [facility] 17:06:58 17:18:00 Encounter Zoe D 07317.1.1 it y of 3.412.2.7 [place] .3.163519 MD Zelaya [facility] 2022-04-20 2022-04-20 [facility], 1.2.840.1 [id number] [id number] Univers 17:06:58 17:18:00 Encounter Zoe D 24428.1.1 it y of 3.412.2.7 [place] .3.269336 MD Zelaya [facility] 2022-04-20 2022-04-20 Travel 1.2.840.1 1.2.792.390 5244 [id number] Univers 00:00:00 00:00:00 64536.1.1 350.1.13.41 ity of 3.412.2.7 [place].3.698 [place]3.[place] 084.8 MD Zelaya [facility] 2022-04-20 2022-04-20 Travel 1.2.840.1 1.2.438.152 6596 [id number] Univers 00:00:00 00:00:00 20343.1.1 350.1.13.41 ity of 3.412.2.7 2.[place].7.3.698 [place] .3.952515 084.8 MD Zelaya [facility] 2022-03-24 2022-03-24 Viraj Latham 1.2.840.1 1020 82025 [id number] Univers 15:15:00 18:32:43 Juliana Monica Bartlett 55705.1.1 ity of 3.412.2.7 [place] .3.253494 .8 [facility] 2022-03-24 2022-03-24 Infusion Viraj Beckwith 1.2.840.1 1020 50743 [id number] Univers 15:15:00 18:32:43 Monica Andrews Tri 00450.1.1 ity of 3.412.2.7 [place] .3.624017 .8 [facility] 2022-03-24 2022-03-24 Outpatient CARLOS ESCOBAR MDA MDA [id number] 15:56:20 16:14:06 ZOE broussard 2022-03-24 2022-03-24 Office Adriane Esparza 1.2.840.1 [id number] 10 [id number] Univers 14:30:00 15:00:49 Visit 94574.1.1 ity of 3.412.2.7 [place] .3.152863 .8 [facility] 2022-03-24 2022-03-24 Office Adriane Farrell 1.2.840.1 [id number] 10 [id number] Univers 14:30:00 15:00:49 Visit 88399.1.1 ity of 3.412.2.7 [place] .3.090924 .8 [facility] 2022-03-24 2022-03-24 Outpatient CARLOS ACBRERA MDA MDA [id number] 13:48:31 14:48:08 VIRAJ broussard 2022-03-24 2022-03-24 Clinical Deborah 1.2.840.1 [id number] 1095 [id number] Univers 13:30:00 14:15:06 Support Viraj Perez 21938.1.1 it y of 3.412.2.7 [place] .3.473479 MD Blanchard8 [facility] 2022-03-24 2022-03-24 Clinical CARLOS Cabrera 1.2.840.1 [id number] 1095 [id number] Univers 13:30:00 14:15:06 Support Viraj Perez 87912.1.1 it y of 3.412.2.7 [place] .3.436926 MD Zelaya [facility] 2022-03-24 2022-03-24 Jamison Cabrera, 1.2.840.1 [id number] Univers 00:00:00 00:00:00 Only Viraj Perez 62739.1.1 it y of 3.412.2.7 [place] .3.149746 MD Zelaya [facility] 2022-03-24 2022-03-24 Travel 1.2.840.1 1.2.152.435 1262 [id number] Univers 00:00:00 00:00:00 04952.1.1 350.1.13.41 ity of 3.412.2.7 2.[place].7.3.698 [place] .3.923[place] 084.8 MD Zelaya [facility] 2022-03-24 2022-03-24 Jamison Cabrera, 1.2.840.1 [id number] Univers 00:00:00 00:00:00 Only Viraj Perez 22080.1.1 it y of 3.412.2.7 [place] .3.994532 MD Zelaya [facility] 2022-03-24 2022-03-24 Travel 1.2.840.1 1.2.358.884 1979 [id number] Univers 00:00:00 00:00:00 09154.1.1 350.1.13.41 ity of 3.412.2.7 2.[place].7.3.698 [place] .3.572227 084.8 MD Zelaya [facility] 2022-02-24 2022-02-24 Infusion Adriane Esparza 1.2.840.1 [id number] 1 [id number] Univers 13:00:00 16:24:12 [place] Crowley 43466.1.1 ity of 3.412.2.7 [place] .3.099665 MD Zelaya [facility] 2022-02-24 2022-02-24 Infusion Adriane Farrell 1.2.840.1 [id number] 1 [id number] Univers 13:00:00 16:24:12 [place] Crowley 22140.1.1 ity of 3.412.2.7 [place] .3.902805 MD Zelaya [facility] 2022-02-24 2022-02-24 Office Viraj Cabrera 1.2.840.1 [id number] 4665 [id number] Univers 11:30:00 12:52:27 Visit Adriane Esparza 17902.1.1 ity of 3.412.2.7 [place] .3Lo236065 MD Blanchard8 [facility] 2022-02-24 2022-02-24 Office Viraj Beckwith 1.2.840.1 [id number] 4665 [id number] Univers 11:30:00 12:52:27 Visit Misty Esparzana 59034.1.1 ity of 3.412.2.7 [place] .3.433638 MD Blanchard8 [facility] 2022-02-24 2022-02-24 Outpatient ADRIANE FARRELL [facility] [id number] 11:15:33 12:10:32 [facility] 2022-02-24 2022-02-24 Clinical Deborah 1.2.840.1 [id number] 1093 [id number] Univers 11:00:00 11:32:28 Support Viraj Perez 72612.1.1 it y of 3.412.2.7 [place] .3Lo797834 MD Blanchard8 [facility] 2022-02-24 2022-02-24 Clinical CARLOS Cabrera 1.2.840.1 [id number] 1093 [id number] Univers 11:00:00 11:32:28 Support Viraj Perez 92606.1.1 it y of 3.412.2.7 [place] .3Lo041374 MD Blanchard8 [facility] 2022-02-24 2022-02-24 Orders Deborah 1.2.840.1 [id number] 01880 [id number] Univers 00:00:00 00:00:00 Only Viraj D. 97358.1.1 it y of 3.412.2.7 [place] .3.037680 MD Blanchard8 [facility] 2022-02-24 2022-02-24 Travel 1.2.840.1 1.2.895.320 4580 [id number] Univers 00:00:00 00:00:00 47119.1.1 350.1.13.41 ity of 3.412.2.7 [place]7.3.698 [place] .3.956240 084.8 MD Zelaya [facility] 2022-02-24 2022-02-24 Jamison Cabrera, 1.2.840.1 [id number] 31980 81468 Univers 00:00:00 00:00:00 Only Viraj Perez 45650.1.1 it y of 3.412.2.7 [place] .3.886843 MD Zelaya [facility] 2022-02-24 2022-02-24 Jamison Cabrera, 1.2.840.1 [id number] 02259 Univers 00:00:00 00:00:00 Only Viraj Perez 51923.1.1 it y of 3.412.2.7 [place] .3.062372 MD Zelaya [facility] 2022-02-24 2022-02-24 Travel 1.2.840.1 1.2.037.578 8027 [id number] Univers 00:00:00 00:00:00 98634.1.1 350.1.13.41 ity of 3.412.2.7 2.2.7.3.698 [place] .3.272418 084.8 MD Zelaya [facility] 2022-02-24 2022-02-24 Jamison Cabrera, 1.2.840.1 [id number] [id number] Univers 00:00:00 00:00:00 Only Viraj Perez 18108.1.1 it y of 3.412.2.7 [place] .3.674988 MD eZlaya [facility] 2022-02-22 2022-02-22 Cortney Parrish, 1.2.840.1 [id number] 0689 Univers 00:00:00 00:00:00 Jacek Leonard 90546.1.1 it y of 3.412.2.7 [place] .3.654753 MD Blanchard8 [facility] 2022-02-22 2022-02-22 Refill Francois, 1.2.840.1 [id number] 3236 Univers 00:00:00 00:00:00 Jacek Leonard 22036.1.1 it y of 3.412.2.7 [place] .3.099026 MD Blanchard8 [facility] 2022-02-17 2022-02-17 Clinical Deborah 1.2.840.1 [id number] 1094 [id number] Univers 16:30:00 17:00:00 Support Viraj Perez 16072.1.1 it y of 3.412.2.7 [place] .3.072723 MD Blanchard8 [facility] 2022-02-17 2022-02-17 Clinical CARLOS Cabrera, 1.2.840.1 [id number] 1094 [id number] Univers 16:30:00 17:00:00 Support Viraj Perez 22067.1.1 it y of 3.412.2.7 [place] .3.319827 MD Blanchard8 [facility] 2022-02-17 2022-02-17 Outpatient ADRIANE FARRELL MDA MDA [id number] 15:22:31 15:45:08 [facility] 2022-02-17 2022-02-17 Procedure Francois, 1.2.840.1 [id number] 1093 [id number] Univers 14:00:00 15:00:00 visit Jacek Leonard 51472.1.1 it y of 3.412.2.7 [place] .3Lo128013 MD Blanchard8 [facility] 2022-02-17 2022-02-17 Procedure CRALOS Parrish, 1.2.840.1 [id number] 1093 [id number] Univers 14:00:00 15:00:00 visit Jacek Leonard 21767.1.1 it y of 3.412.2.7 [place] .3Lo124965 MD Zelaya [facility] 2022-02-17 2022-02-17 Outpatient CARLOS PARRISH MDA [facility] [id number] 14:36:26 14:36:26 JACEK Brown [facility] 2022-02-17 2022-02-17 Adriane Gonzalez 1.2.840.1 [id number] 10 [id number] Univers 00:00:00 00:00:00 Only 22610.1.1 ity of 3.412.2.7 [place] .3.813291 MD Zelaya [facility] 2022-02-17 2022-02-17 Telephone Lebato, 1.2.840.1 [id number] 1094 [id number] Univers 00:00:00 00:00:00 November L 69880.1.1 ity of 3.412.2.7 [place] .3.443342 MD Zelaya [facility] 2022-02-17 2022-02-17 Travel 1.2.840.1 1.2.900.354 2856 065016 Univers 00:00:00 00:00:00 94122.1.1 350.1.13.41 ity of 3.412.2.7 2.2.7.3.698 [place] .3.563007 08Dixon.8 MD Zelaya [facility] 2022-02-17 2022-02-17 Adriane Gonzalez 1.2.840.1 [id number] 10 [id number] Univers 00:00:00 00:00:00 Only 39487.1.1 ity of 3.412.2.7 [place] .3.899418 MD Zelaya [facility] 2022-02-17 2022-02-17 Telephone Lebato, 1.2.840.1 [id number] 1094 [id number] Univers 00:00:00 00:00:00 November L 32435.1.1 ity of 3.412.2.7 [place] .3.051940 MD Zelaya [facility] 2022-02-17 2022-02-17 Travel 1.2.840.1 1.2.275.024 1885 [id number] Univers 00:00:00 00:00:00 61832.1.1 350.1.13.41 ity of 3.412.2.7 2.2.7.3.698 [place] .3.725765 084.8 MD Blanchard8 [facility] 2022-02-01 2022-02-01 Telephone Pomer, 1.2.840.1 [id number] 1093 [id number] Univers 00:00:00 00:00:00 Meche May 83169.1.1 it y of 3.412.2.7 [place] .3.614645 MD Blanchard8 [facility] 2022-02-01 2022-02-01 Telephone Pomer, 1.2.840.1 [id number] 1093 [id number] Univers 00:00:00 00:00:00 Meche May 58675.1.1 it y of 3.412.2.7 [place] .3.879127 MD Blanchard8 [facility] 2022-01-27 2022-01-27 Infusion Nick Mccallum 1.2.840.1 [id number] Univers 13:00:00 15:40:52 Hazel Lewis 26722.1.1 ity of 3.412.2.7 [place] .3.984169 MD Blanchard8 [facility] 2022-01-27 2022-01-27 Infusion Nick Mccallum 1.2.840.1 [id number] Univers 13:00:00 15:40:52 Hazel Lewis 03405.1.1 ity of 3.412.2.7 [place] .3.447421 MD Blanchard8 [facility] 2022-01-27 2022-01-27 Office Deborah, 1.2.840.1 [id number] [id number] Univers 11:30:00 12:00:00 Visit Viraj Perez 18650.1.1 it y of 3.412.2.7 [place] .3.313051 MD Blanchard8 [facility] 2022-01-27 2022-01-27 Office eDborah, 1.2.840.1 [id number] 44527 74468 Univers 11:30:00 12:00:00 Visit Viraj Perez 84180.1.1 it y of 3.412.2.7 [place] .3.067123 .8 [facility] 2022-01-27 2022-01-27 Office Francois, 1.2.840.1 [id number] 8107 [facility] 10:00:00 11:14:19 Visit Jacek Leonard 82383.1.1 it y of 3.412.2.7 [place] .3.662194 .8 [facility] 2022-01-27 2022-01-27 Office Francois, 1.2.840.1 [id number] 9263 [facility] 10:00:00 11:14:19 Visit Jacek Leonard 15482.1.1 it y of 3.412.2.7 [place] .3.760764 .8 [facility] 2022-01-27 2022-01-27 Clinical Deborah, 1.2.840.1 [id number] 1093 [id number] Univers 09:00:00 09:38:27 Support Viraj Perez 76204.1.1 it y of 3.412.2.7 [place] .3.175756 MD Blanchard8 [facility] 2022-01-27 2022-01-27 Clinical Deborah, 1.2.840.1 [id number] 1093 [id number] Univers 09:00:00 09:38:27 Support Viraj Perez 40611.1.1 it y of 3.412.2.7 [place] .3.578611 .8 [facility] 2022-01-27 2022-01-27 Outpatient CARLOS MCCALLUM MDA MDA [id number] 09:32:53 09:37:10 NICK [facility] 2022-01-27 2022-01-27 Travel 1.2.840.1 1.2.650.135 2165 [id number] Univers 00:00:00 00:00:00 82946.1.1 350.1.13.41 ity of 3.412.2.7 2.2.7.3.698 [place] .3.419532 084.8 MD Zelaya [facility] 2022-01-27 2022-01-27 Travel 1.2.840.1 1.2.886.231 6290 [id number] Univers 00:00:00 00:00:00 58133.1.1 350.1.13.41 ity of 3.412.2.7 2.2.7.3.698 [place] .3.783679 08Dixon.8 MD Blanchard8 [facility] 2022-01-26 2022-01-26 Jamison Cabrera 1.2.840.1 [id number] Univers 00:00:00 00:00:00 Only Viraj Perez 01321.1.1 it y of 3.412.2.7 [place] .3.825612 MD Zelaya [facility] 2022-01-26 2022-01-26 Jamison Cabrera 1.2.840.1 [id number] 51742 Univers 00:00:00 00:00:00 Only Viraj Perez 71993.1.1 it y of 3.412.2.7 [place] .3.094794 MD Zelaya [facility] 2022-01-24 2022-01-24 Jamison Mccallum 1.2.840.1 [id number] 9307 Univers 00:00:00 00:00:00 Only Nick 79737.1.1 ity of 3.412.2.7 [place] .3.160973 MD Zelaya [facility] 2022-01-24 2022-01-24 Jamison Mccallum 1.2.840.1 [id number] 7599 Univers 00:00:00 00:00:00 Only Nick 40194.1.1 ity of 3.412.2.7 [place] .3.197174 MD Zelaya [facility] 2022-01-23 2022-01-23 Jamison Mccallum 1.2.840.1 [id number] 7837 Univers 00:00:00 00:00:00 Only Nick 72815.1.1 ity of 3.412.2.7 [place] .3.003027 MD Zelaya [facility] 2022-01-23 2022-01-23 Orders Alessio, 1.2.840.1 [id number] 3824 Univers 00:00:00 00:00:00 Only Nick 51772.1.1 ity of 3.412.2.7 [place] .3.777329 MD Zelaya [facility] 2022-01-23 2022-01-23 Orders Alessio, 1.2.840.1 [id number] Univers 00:00:00 00:00:00 Only Nick 53690.1.1 ity of 3.412.2.7 [place] .3.453688 MD Zelaya [facility] 2022-01-23 2022-01-23 Orders Alessio, 1.2.840.1 [id number] 7662 Univers 00:00:00 00:00:00 Only Nick 10942.1.1 ity of 3.412.2.7 [place] .3.668108 MD Zelaya [facility] 2022-01-17 2022-01-17 [facility] 1.2.840.1 [id number] 1 [id number] Univers 15:17:28 23:59:00 Encounter 34417.1.1 it y of 3.412.2.7 [place] .3.651571 MD Zelaya [facility] 2022-01-17 2022-01-17 [facility] 1.2.840.1 [id number] 1 [id number] Univers 15:17:28 23:59:00 Encounter 88706.1.1 it y of 3.412.2.7 [place] .3.696436 MD Zelaya [facility] 2022-01-17 2022-01-17 Travel 1.2.840.1 1.2.153.012 2279 [id number] Univers 00:00:00 00:00:00 51854.1.1 350.1.13.41 ity of 3.412.2.7 2.2.7.3.698 [place] .3.998917 084.8 MD Zelaya [facility] 2022-01-17 2022-01-17 Travel 1.2.840.1 1.2.102.197 7489 [id number] Univers 00:00:00 00:00:00 98689.1.1 350.1.13.41 ity of 3.412.2.7 2.2.7.3.698 [place] .3.333983 084.8 MD Zelaya [facility] 2022-01-16 2022-01-16 Jamison Mccallum 1.2.840.1 [id number] 7537 Univers 00:00:00 00:00:00 Only Nick 27056.1.1 ity of 3.412.2.7 [place] .3.208507 MD Zelaya [facility] 2022-01-16 2022-01-16 Jamison Mccallum 1.2.840.1 [id number] 5582 Univers 00:00:00 00:00:00 Only Nick 00638.1.1 ity of 3.412.2.7 [place] .3.864610 MD Zelaya [facility] 2022-01-13 2022-01-13 Jamison Cabrera 1.2.840.1 [id number] 92061 Univers 00:00:00 00:00:00 Only Viraj Perez 11452.1.1 it y of 3.412.2.7 [place] .3.973127 MD Zelaya [facility] 2022-01-13 2022-01-13 Jamison Cabrera 1.2.840.1 [id number] [id number] Univers 00:00:00 00:00:00 Only Viraj Perez 51475.1.1 it y of 3.412.2.7 [place] .3.388295 MD Zelaya [facility] 2021-11-22 2021-11-22 Jamison Mccallum 1.2.840.1 [id number] 0255 Univers 00:00:00 00:00:00 Only Nick 93044.1.1 ity of 3.412.2.7 [place] .3.157054 MD Zelaya [facility] 2021-11-22 2021-11-22 Adriane Gonzalez 1.2.840.1 [id number] 10 [id number] Univers 00:00:00 00:00:00 Only 82998.1.1 ity of 3.412.2.7 [place] .3.729276 MD Blanchard8 [facility] 2021-11-22 2021-11-22 Jamison Mccallum 1.2.840.1 [id number] 5025 Univers 00:00:00 00:00:00 Only Nick 49176.1.1 ity of 3.412.2.7 [place] .3.058194 MD Blanchard8 [facility] 2021-11-22 2021-11-22 Adriane Gonzalez 1.2.840.1 [id number] 10 [id number] Univers 00:00:00 00:00:00 Only 50747.1.1 ity of 3.412.2.7 [place] .3.527609 MD Blanchard8 [facility] 2021-11-04 2021-11-04 Infusion CARLOS Mccallum 1.2.840.1 [id number] 04777 43514 Univers 11:30:00 11:34:11 Nick 75475.1.1 ity of 3.412.2.7 [place] .3.410609 MD Zelaya [facility] 2021-11-04 2021-11-04 Ezio Mccallum 1.2.840.1 [id number] 93530 17508 Univers 11:30:00 11:34:11 Nick 19157.1.1 ity of 3.412.2.7 [place] .3.332191 MD Zelaya [facility] 2021-11-04 2021-11-04 Office Viraj Beckwith 1.2.840.1 [id number] 4665 [id number] Univers 09:30:00 10:00:00 Visit Nick Mccallum 26901.1.1 ity of 3.412.2.7 [place] .3.537487 MD Zelaya [facility] 2021-11-04 2021-11-04 Office Viraj Cabrera 1.2.840.1 [id number] [id number] Univers 09:30:00 10:00:00 Visit Nick Mccallum 72251.1.1 ity of 3.412.2.7 [place] .3.321418 MD Zelaya [facility] 2021-11-04 2021-11-04 Outpatient CARLOS MCCALLUM MDA [facility] [id number] 08:24:14 08:59:04 NICK Kevin [facility] 2021-11-04 2021-11-04 Clinical CARLOS Cabrera, 1.2.840.1 [id number] 1090 [id number] [facility] 08:00:00 08:55:28 Support Viraj Perez 09701.1.1 it y of 3.412.2.7 [place] .3.537612 MD Zelaya [facility] 2021-11-04 2021-11-04 Petey Cabrera 1.2.840.1 [id number] 1090 [id number] [facility] 08:00:00 08:55:28 Support iVraj Perez 07980.1.1 it y of 3.412.2.7 [place] .3.708607 MD Zelaya [facility] 2021-11-04 2021-11-04 Travel 1.2.840.1 1.2.320.257 0563 [id number] Univers 00:00:00 00:00:00 28735.1.1 350.1.13.41 ity of 3.412.2.7 2.2.7.3.698 [place] .3.463705 084.8 MD Zelaya [facility] 2021-11-04 2021-11-04 Travel 1.2.840.1 1.2.031.520 7680 [id number] Univers 00:00:00 00:00:00 34211.1.1 350.1.13.41 ity of 3.412.2.7 2.2.7.3.698 [place] .3.415700 084.8 MD Zelaya [facility] 2021-11-03 2021-11-03 Jamison Cabrera, 1.2.840.1 [id number] 64955 Univers 00:00:00 00:00:00 Only Viraj Perez 09418.1.1 it y of 3.412.2.7 [place] .3.546813 MD Zelaya [facility] 2021-11-03 2021-11-03 Orders Deborah, 1.2.840.1 [id number] 12769 Univers 00:00:00 00:00:00 Only Viraj Chris 55870.1.1 it y of 3.412.2.7 [place] .3.175099 MD Blanchard8 [facility] 2021-10-27 2021-10-27 Office CARLOS Parrish, 1.2.840.1 [id number] 9806 Univers 11:00:00 12:00:38 Visit Jacek Leonard 74837.1.1 it y of 3.412.2.7 [place] .3.252594 MD Blanchard8 [facility] 2021-10-27 2021-10-27 Office Francois, 1.2.840.1 [id number] 3513 Univers 11:00:00 12:00:38 Visit Jacek Leonard 59939.1.1 it y of 3.412.2.7 [place] .3.594324 MD Zelaya [facility] 2021-10-27 2021-10-27 Travel 1.2.840.1 1.2.120.057 5667 [id number] Univers 00:00:00 00:00:00 51648.1.1 350.1.13.41 ity of 3.412.2.7 2.2.7.3.698 [place] .3.623558 084.8 MD Zelaya [facility] 2021-10-27 2021-10-27 Travel 1.2.840.1 1.2.682.133 2381 221532 Univers 00:00:00 00:00:00 28422.1.1 350.1.13.41 ity of 3.412.2.7 2.2.7.3.698 [place] .3.860588 084.8 MD Zelaya [facility] 2021-10-14 2021-10-14 Ezio Mccallum, 1.2.840.1 [id number] 13750 11689 Univers 15:00:00 16:27:21 Nick 95141.1.1 ity of 3.412.2.7 [place] .3.924496 MD [facility] 2021-10-14 2021-10-14 Clinical CARLOS Cabrera 1.2.840.1 [id number] 1089 [id number] [facility] 13:00:00 16:17:14 Support Viraj Perez 05144.1.1 it y of 3.412.2.7 [place] .3.294494 [facility] 2021-10-14 2021-10-14 Office Viraj Beckwith 1.2.840.1 [id number] [facility] 14:00:00 14:30:00 Visit Nick Mccallum 85838.1.1 ity of 3.412.2.7 [place] .3.689480 MD Zelaya [facility] 2021-10-14 2021-10-14 Outpatient CARLOS MCCALLUM [facility] [id number] [place] 13:16:19 13:46:48 NICK broussard 2021-10-14 2021-10-14 Jamison Cabrera 1.2.840.1 [id number] [facility] 00:00:00 00:00:00 Only Viraj Perez 20435.1.1 it y of 3.412.2.7 [place] .3.775656 MD Zelaya [facility] 2021-10-14 2021-10-14 Travel 1.2.840.1 1.2.131.878 [id number] [facility] 00:00:00 00:00:00 56084.1.1 350.1.13.41 ity of 3.412.2.7 [place]3.698 [place] .3.365802 084.8 MD [facility] 2021-10-11 2021-10-11 Telemedici Kelsey Miller 1.2.840.1 [id number] [facility] 09:30:00 09:40:20 Michael rFanklin 96672.1.1 ity of 3.412.2.7 [place] .3.987129 MD Zelaya [facility] 2021-10-11 2021-10-11 Cortney Parrish, 1.2.840.1 [id number] [facility] 00:00:00 00:00:00 Jacek Leonard 69794.1.1 it y of 3.412.2.7 [place] .3.942093 MD Blanchard8 [facility] 2021-10-09 2021-10-09 Viraj Crawley 1.2.840.1 [id number] [facility] 10:40:00 23:59:00 Madian Messina I 69432.1.1 ity of 3.412.2.7 [place] .3.631486 MD Blanchard8 [facility] 2021-10-09 2021-10-09 Travel 1.2.840.1 1.2.876.856 [id number] [facility] 00:00:00 00:00:00 40574.1.1 350.1.13.41 ity of 3.412.2.7 [place].3.698 [place]3.243635 084.8 MD Blanchard8 [facility] 2021-10-06 2021-10-06 Jamison Cabrera, 1.2.840.1 [id number] [facility] 00:00:00 00:00:00 Only Viraj Perez 66115.1.1 it y of 3.412.2.7 [place] .3.953897 MD Blanchard8 [facility] 2021-10-06 2021-10-06 Jamison Mccallum 1.2.840.1 [id number] [facility] 00:00:00 00:00:00 Only Nick 96858.1.1 ity of 3.412.2.7 [place] .3Lo289500 MD Zelaya [facility] 2021-10-05 2021-10-05 Jamison Mccallum 1.2.840.1 [id number] [facility] 00:00:00 00:00:00 Only Nick 47819.1.1 ity of 3.412.2.7 [place] .3.448534 MD Zelaya [facility] 2021-10-05 2021-10-05 [facility], 1.2.840.1 [id number] Univers 00:00:00 00:00:00 Only Nick 52296.1.1 ity of 3.412.2.7 [place] .3.904883 MD Blanchard8 [facility] 2021-10-04 2021-10-04 [facility], 1.2.840.1 [id number] Univers 10:05:41 23:59:00 Encounter Nick 92054.1.1 it y of 3.412.2.7 [place] .3.692914 MD Blanchard8 [facility] 2021-10-04 2021-10-04 [facility] Alessio, 1.2.840.1 [id number] Univers 09:55:12 10:04:00 Encounter Nick 07856.1.1 it y of 3.412.2.7 [place] .3.549103 MD Blanchard8 [facility] 2021-10-04 2021-10-04 Travel 1.2.840.1 1.2.314.109 [id number] [facility] 00:00:00 00:00:00 83752.1.1 350.1.13.41 ity of 3.412.2.[place]3.698 [place] .3.599411 084.8 MD Zelaya [facility] 2021-09-14 2021-09-14 [facility], 1.2.840.1 [id number] [facility] 15:00:00 16:18:41 Nick 40122.1.1 ity of 3.412.2.7 [place] .3.565424 MD Zelaya [facility] 2021-09-14 2021-09-14 Office CARLOS Cabrera, 1.2.840.1 [id number] [facility] 14:00:00 14:30:00 Visit Viraj Perez 46097.1.1 it y of 3.412.2.7 [place] .3.268487 MD .8 [facility] 2021-09-14 2021-09-14 Outpatient CARLOS MCCALLUM [facility] [id number] 13:15:36 14:14:16 NICK Kevin [facility] 2021-09-14 2021-09-14 Clinical CARLOS Cabrera, 1.2.840.1 [id number] [id number] Univers 13:30:00 13:59:32 Support Viraj Perez 38437.1.1 it y of 3.412.2.7 [place] .3.362493 MD Zelaya [facility] 2021-09-14 2021-09-14 Travel 1.2.840.1 1.2.968.314 6992 [id number] [facility] 00:00:00 00:00:00 71150.1.1 350.1.13.41 ity of 3.412.2.7 [place].3.698 [place].646[place] 084.8 MD Zelaya [facility] 2021-09-13 2021-09-13 Jamison Cabrera, 1.2.840.1 [id number] 72527 Univers 00:00:00 00:00:00 Only Viraj Perez 86374.1.1 it y of 3.412.2.7 [place] .3.729968 MD Zelaya [facility] 2021-08-29 2021-08-29 Adriane Gonzalez 1.2.840.1 [id number] Univers 00:00:00 00:00:00 Only 58363.1.1 ity of 3.412.2.7 [place] .3.185776 MD Zelaya [facility] 2021-08-29 2021-08-29 Telephone Teri, 1.2.840.1 [id number] 1088 [id number] Univers 00:00:00 00:00:00 November L 97643.1.1 ity of 3.412.2.7 [place] .3.656243 MD Zelaya [facility] 2021-08-24 2021-08-24 Infusion 1.2.840.1 [id number] Univers 10:30:00 12:06:15 07041.1.1 ity of 3.412.2.7 [place] .3.537779 MD Zelaya [facility] 2021-08-24 2021-08-24 Clinical CARLOS Cabrera, 1.2.840.1 [id number] 1087 [id number] Univers 08:30:00 10:22:06 Support Viraj Perez 54546.1.1 it y of 3.412.2.7 [place] .3.185873 MD Zelaya [facility] 2021-08-24 2021-08-24 Office CARLOS Cabrera, 1.2.840.1 [id number] Univers 09:30:00 10:00:00 Visit Viraj Perez 05300.1.1 it y of 3.412.2.7 [place] .3.724799 MD Zelaya [facility] 2021-08-24 2021-08-24 Outpatient CARLOS CABRERA, [facility] [id number] [place] 08:59:28 09:54:34 VIRAJ broussard 2021-08-24 2021-08-24 Travel 1.2.840.1 1.2.664.165 3672 [id number] Univers 00:00:00 00:00:00 86732.1.1 350.1.13.41 ity of 3.412.2.7 [place]7.3.698 [place] .3.960506 084.8 MD Zelaya [facility] 2021-08-23 2021-08-23 [facility] Deborah, 1.2.840.1 [id number] [id number] Univers 00:00:00 00:00:00 Only Viraj Perez 44936.1.1 it y of 3.412.2.7 [place] .3.246820 MD Zelaya [facility] 2021-08-15 2021-08-15 Ancillary CARLOS Cabrera, 1.2.840.1 [id number] Univers 13:30:00 14:30:00 Procedure Viraj Perez 73277.1.1 ity of 3.412.2.7 [place] .3Lo409864 MD .8 [facility] 2021-08-15 2021-08-15 Travel 1.2.840.1 1.2.212.945 8293 [id number] Univers 00:00:00 00:00:00 48368.1.1 350.1.13.41 ity of 3.412.2.7 [place]7.3.698 [place] .3.493142 084.8 MD Zelaya [facility] 2021-08-03 2021-08-03 [facility], 1.2.840.1 [id number] [id number] Univers 14:08:00 23:59:00 Encounter Jacek Leonard 96259.1.1 ity of 3.412.2.7 [place] .3.402072 MD Zelaya [facility] 2021-08-03 2021-08-03 [facility], 1.2.840.1 [id number] 35707 Univers 13:45:04 14:07:00 Encounter Jacek Leonard 80848.1.1 ity of 3.412.2.7 [place] .3.022460 MD Zelaya [facility] 2021-08-03 2021-08-03 Travel 1.2.840.1 1.2.105.075 4502 [id number] Univers 00:00:00 00:00:00 03160.1.1 350.1.13.41 ity of 3.412.2.7 [place]7.3.698 [place] .3.853462 084.8 MD Zelaya [facility] 2021-08-03 2021-08-03 [facility] Andrea, 1.2.840.1 [id number] Univers 00:00:00 00:00:00 Only Jozef 40685.1.1 ity of 3.412.2.7 [place] .3.922362 MD Zelaya [facility] 2021-07-29 2021-07-29 Infusion EL 1.2.840.1 [id number] [id number] Univers 13:00:00 15:07:01 01815.1.1 ity of 3.412.2.7 [place] .3.466034 .8 [facility] 2021-07-29 2021-07-29 Outpatient CARLOS MCCALLUM MDA MDA [id number] 14:28:13 14:30:33 NICK broussard 2021-07-29 2021-07-29 Office Parrish, 1.2.840.1 [id number] Univers 11:00:00 11:58:14 Visit Jacek Leonard 44215.1.1 it y of 3.412.2.7 [place] .3.249255 .8 [facility] 2021-07-29 2021-07-29 Office CARLOS Cabrera, 1.2.840.1 [id number] [id number] Univers 10:00:00 10:30:00 Visit Viraj Perez 51669.1.1 it y of 3.412.2.7 [place] .3.590175 .8 [facility] 2021-07-29 2021-07-29 Clinical Deborah, 1.2.840.1 [id number] 1086 [id number] Univers 09:30:00 09:58:38 Support Viraj Perez 07293.1.1 it y of 3.412.2.7 [place] .3.004920 MD Blanchard8 [facility] 2021-07-29 2021-07-29 Outpatient CARLOS CABRERA MDA MDA [id number] 09:26:59 09:57:59 VIRAJ broussard 2021-07-29 2021-07-29 Jamison Mccallum 1.2.840.1 [id number] 2145 [facility] 00:00:00 00:00:00 Only Nick 56467.1.1 ity of 3.412.2.7 [place] .3.449681 MD Blanchard8 [facility] 2021-07-29 2021-07-29 Travel 1.2.840.1 1.2.464.502 0041 [id number] Univers 00:00:00 00:00:00 95019.1.1 350.1.13.41 ity of 3.412.2.7 [place]7.3.698 [place] .3.952200 084.8 MD Zelaya [facility] 2021-07-28 2021-07-28 Jamison Cabrera, 1.2.840.1 [id number] 30209 Univers 00:00:00 00:00:00 Only Viraj Perez 05786.1.1 it y of 3.412.2.7 [place] .3.206813 MD Zelaya [facility] 2021-07-27 2021-07-27 Ancillary CARLOS Mccallum, 1.2.840.1 [id number] 1086 [id number] Univers 11:55:00 14:20:00 Procedure Nick 69205.1.1 it y of 3.412.2.7 [place] .3.384581 MD Zelaya [facility] 2021-07-27 2021-07-27 Travel 1.2.840.1 1.2.116.717 0305 [id number] Univers 00:00:00 00:00:00 49297.1.1 350.1.13.41 ity of 3.412.2.7 [place]7.3.698 [place] .3.630182 084.8 MD Zelaya [facility] 2021-07-08 2021-07-08 Infusion CARLOS Cabrera, 1.2.840.1 [id number] 1084 [id number] Univers 10:00:00 12:04:48 Viraj Perez 84981.1.1 it y of 3.412.2.7 [place] .3.818240 MD Zelaya [facility] 2021-07-08 2021-07-08 Clinical CARLOS Cabrera, 1.2.840.1 [id number] 1086 [id number] Univers 11:00:00 11:00:00 Support Viraj Perez 29582.1.1 it y of 3.412.2.7 [place] .3.849470 MD Zelaya [facility] 2021-07-08 2021-07-08 Office CARLOS Cabrera, 1.2.840.1 [id number] 66290 Univers 08:30:00 10:36:30 Visit Viraj Perez 54469.1.1 it y of 3.412.2.7 [place] .3.143763 .8 [facility] 2021-07-08 2021-07-08 Outpatient CARLOS MCCALLUM MDA MDA [id number] 08:46:45 09:45:45 NICK Kevinjuan broussard 2021-07-08 2021-07-08 Travel 1.2.840.1 1.2.352.331 7270 [id number] Univers 00:00:00 00:00:00 35836.1.1 350.1.13.41 ity of 3.412.2.7 [place]7.3.698 [place] .3.302533 084.8 .8 [facility] 2021-07-07 2021-07-07 Jamison Cabrera, 1.2.840.1 [id number] 60712 Univers 00:00:00 00:00:00 Only Viraj Perez 79488.1.1 it y of 3.412.2.7 [place] .3.535613 MD Blanchard8 [facility] 2021-07-01 2021-07-01 Refsheri Mccallum, 1.2.840.1 [id number] 4346 Univers 00:00:00 00:00:00 Nick 05420.1.1 ity of 3.412.2.7 [place] .3.875869 .Missy [facility] 2021-06-17 2021-06-17 Office CARLOS Mccallum, 1.2.840.1 [id number] 7597 Univers 13:00:00 15:51:11 Visit Nick 12494.1.1 ity of 3.412.2.7 [place] .3.296528 MD Zelaya [facility] 2021-06-17 2021-06-17 Infusion 1.2.840.1 [id number] 38573 Univers 14:00:00 15:23:40 94793.1.1 ity of 3.412.2.7 [place] .3.089666 MD Zelaya [facility] 2021-06-17 2021-06-17 Outpatient ADRIANE FARRELL MDA, MDA [id number] 12:05:29 12:21:24 Kevinjuan broussard 2021-06-17 2021-06-17 Clinical EL 1.2.840.1 [id number] 11003 [facility] 11:30:00 12:06:58 Support 58819.1.1 ity of 3.412.2.7 [place] .3.336236 MD Blanchard8 [facility] 2021-06-17 2021-06-17 Outpatient EL MDA MDA [id number] 11:19:30 12:06:20 [facility] bobo 2021-06-17 2021-06-17 Jamison Cabrera, 1.2.840.1 [id number] Univers 00:00:00 00:00:00 Only Viraj Perez 97201.1.1 it y of 3.412.2.7 [place] .3.250595 MD Blanchard8 [facility] 2021-06-17 2021-06-17 Travel 1.2.840.1 1.2.212.412 5550 [id number] Univers 00:00:00 00:00:00 61641.1.1 350.1.13.41 ity of 3.412.2.7 [place].7.3.698 [place] .3.677600 084.8 MD Blanchard8 [facility] 2021-05-17 2021-05-17 Cortney Parrish, 1.2.840.1 [id number] 7949 Univers 00:00:00 00:00:00 Jacek Leonard 08344.1.1 it y of 3.412.2.7 [place] .3.606870 MD Blanchard8 [facility] 2021-05-13 2021-05-13 Outpatient EL MDA MDA [id number] 09:09:27 09:16:12 Kevinjuan broussard 2021-05-13 2021-05-13 Office EL Deborah, 1.2.840.1 [id number] 79666 [facility] 08:30:00 09:00:00 Visit Viraj Perez 69224.1.1 it y of 3.412.2.7 [place] .3.526959 MD Blanchard8 [facility] 2021-05-13 2021-05-13 Clinical CARLOS Mccallum, 1.2.840.1 [id number] 20276 Univers 08:00:00 08:34:28 Support Nick 70096.1.1 ity of 3.412.2.7 [place] .3.293158 MD Zelaya [facility] 2021-05-13 2021-05-13 Outpatient CARLOS CABRERA, [facility] [id number] 08:16:16 08:34:14 VIRAJ broussard 2021-05-13 2021-05-13 Jamison Mccallum, 1.2.840.1 [id number] Univers 00:00:00 00:00:00 Only Nick 42536.1.1 ity of 3.412.2.7 [place] .3.722649 MD Zelaya [facility] 2021-05-13 2021-05-13 Travel 1.2.840.1 1.2.571.441 5967 [id number] Univers 00:00:00 00:00:00 33099.1.1 350.1.13.41 ity of 3.412.2.7 2.2.7.3.698 [place] .3.611465 084.Missy Zelaya [facility] 2021-05-12 2021-05-12 Jamison Cabrera, 1.2.840.1 [id number] 13151 Univers 00:00:00 00:00:00 Only Viraj Perez 33109.1.1 it y of 3.412.2.7 [place] .3.732160 MD Zelaya [facility] 2021-05-07 2021-05-07 Ancillary CARLOS Parrish, 1.2.840.1 [id number] 1083 [id number] Univers 06:15:00 08:00:00 Jasson Leonard 10041.1.1 ity of 3.412.2.7 [place] .3.411039 MD Zelaya [facility] 2021-05-07 2021-05-07 Travel 1.2.840.1 1.2.229.849 4539 [id number] Univers 00:00:00 00:00:00 24436.1.1 350.1.13.41 ity of 3.412.2.7 [place].2.7.3.698 [place] .3.389927 084.8 MD Zelaya [facility] 2021-04-28 2021-04-28 Office CARLOS Parrish, 1.2.840.1 [id number] 2031 Univers 09:30:00 10:42:27 Visit Jacek Leonard 86790.1.1 it y of 3.412.2.7 [place] .3.587152 MD Blanchard8 [facility] 2021-04-28 2021-04-28 Travel 1.2.840.1 1.2.958.401 2813 [id number] Univers 00:00:00 00:00:00 80907.1.1 350.1.13.41 ity of 3.412.2.7 2.2.7.3.698 [place] .3.632491 084.8 .Missy [facility] 2021-04-22 2021-04-22 Infusion CARLOS Mccallum, 1.2.840.1 [id number] 11825 [facility] 12:30:00 14:08:40 Nick 07943.1.1 ity of 3.412.2.7 [place] .3.257523 MD Zelaya [facility] 2021-04-22 2021-04-22 Office CARLOS Cabrera, 1.2.840.1 [id number] 65506 Univers 11:30:00 12:00:00 Visit Viraj Perez 86292.1.1 it y of 3.412.2.7 [place] .3.241868 MD Blanchard8 [facility] 2021-04-22 2021-04-22 Clinical CARLOS Cabrera, 1.2.840.1 [id number] [id number] [facility] 10:00:00 11:27:55 Support Viraj Perez 48246.1.1 it y of 3.412.2.7 [place] .3.169716 MD Zelaya [facility] 2021-04-22 2021-04-22 Outpatient CARLOS MCCALLUM MDA [facility] [id number] MD 10:16:09 10:44:53 NICK broussard 2021-04-22 2021-04-22 Travel 1.2.840.1 1.2.708.791 8962 [id number] Univers 00:00:00 00:00:00 85844.1.1 350.1.13.41 ity of 3.412.2.7 2.2.7.3.698 [place] .3.496810 084.8 .Missy [facility] 2021-04-20 2021-04-20 Ancillary CARLOS Mccallum, 1.2.840.1 [id number] [id number] Univers 10:25:00 12:50:00 Procedure Nick 31311.1.1 it y of 3.412.2.7 [place] .3.070486 MD Zelaya [facility] 2021-04-20 2021-04-20 Travel 1.2.840.1 1.2.306.668 9000 [id number] Univers 00:00:00 00:00:00 62058.1.1 350.1.13.41 ity of 3.412.2.7 [place].7.3.698 [place] .3.552863 084.8 [facility] 2021-03-[facility] 2021-03-25 Infusion CARLOS Mccallum, 1.2.840.1 [id number] 52359 Univers 11:00:00 14:33:53 Nick 25606.1.1 ity of 3.412.2.7 [place] .3.084820 MD Zelaya [facility] 2021-03-25 2021-03-25 Office CARLOS Mccallum, 1.2.840.1 [id number] 5961 Univers 10:00:00 10:30:00 Visit Nick 23582.1.1 ity of 3.412.2.7 [place] .3.664791 MD Zelaya [facility] 2021-03-25 2021-03-25 Outpatient CARLOS CABRERA MDA MDA [id number] 09:07:30 09:39:20 VIRAJ broussard 2021-03-25 2021-03-25 Outpatient CARLOS MCCALLUM MDA [facility] [id number] 09:06:46 09:39:19 NICK Kevin [facility] 2021-03-25 2021-03-25 Jamison Mcknight 1.2.840.1 [id number] 5208 Univers 00:00:00 00:00:00 Only Cole 88700.1.1 ity of 3.412.2.7 [place] .3.877912 MD Blanchard8 [facility] 2021-03-25 2021-03-25 Travel 1.2.840.1 1.2.770.645 6379 [id number] Univers 00:00:00 00:00:00 81518.1.1 350.1.13.41 ity of 3.412.2.7 2.2.7.3.698 [place] .3.427292 084.8 MD Blanchard8 [facility] 2021-03-22 2021-03-22 Jamison Mccallum 1.2.840.1 [id number] 4994 Univers 00:00:00 00:00:00 Only Nick 63770.1.1 ity of 3.412.2.7 [place] .3.581950 MD Blanchard8 [facility] 2021-03-21 2021-03-21 Jamison Cabrera 1.2.840.1 [id number] 17503 Univers 00:00:00 00:00:00 Only Viraj Perez 56996.1.1 it y of 3.412.2.7 [place] .3.493495 MD Zelaya [facility] 2021-03-20 2021-03-20 Adriane Gonzalez 1.2.840.1 [id number] Univers 00:00:00 00:00:00 Only 57380.1.1 ity of 3.412.2.7 [place] .3.285041 MD Zelaya [facility] 2021-03-17 2021-03-17 Adriane Gonzalez 1.2.840.1 [id number] Univers 00:00:00 00:00:00 Only 76650.1.1 ity of 3.412.2.7 [place] .3.566517 MD Zelaya [facility] 2021-03-04 2021-03-04 Infusion Adriane Farrell 1.2.840.1 [id number] 1 [id number] [facility] 10:00:00 11:12:35 37631.1.1 ity of 3.412.2.7 [place] .3.933509 MD Zelaya [facility] 2021-03-04 2021-03-04 Office CARLOS Deborah, 1.2.840.1 [id number] 57135 [facility] 09:00:00 09:30:00 Visit Viraj Perez 44380.1.1 it y of 3.412.2.7 [place] .3.834088 MD Zelaya [facility] 2021-03-04 2021-03-04 Outpatient ADRIANE FARRELL [facility] [id number] [place] 08:06:11 08:38:00 [facility] 2021-03-04 2021-03-04 Clinical CARLOS Adams 1.2.840.1 [id number] [facility] 08:15:00 08:31:11 Support Miguel Vieyra 69215.1.1 it y of 3.412.2.7 [place] .3.590052 MD Zelaya [facility] 2021-03-04 2021-03-04 Travel 1.2.840.1 1.2.472.121 7582 [id number] [facility] 00:00:00 00:00:00 77764.1.1 350.1.13.41 ity of 3.412.2.7 2.2.7.3.698 [place] .3.907068 084.8 MD Zelaya [facility] 2021-02-25 2021-02-25 Infusion Adriane Farrell 1.2.840.1 [id number] Univers 10:30:00 13:30:00 42776.1.1 ity of 3.412.2.7 [place] .3.381101 MD Zelaya [facility] 2021-02-25 2021-02-25 Clinical CARLOS Adams 1.2.840.1 [id number] 1081 [id number] Univers 08:15:00 11:17:43 Support Miguel Azalia 55687.1.1 it y of 3.412.2.7 [place] .3.338892 MD Zelaya [facility] 2021-02-25 2021-02-25 Outpatient CARLOS ESPARZAADRIANE AIMEE MDA [id number] 08:40:43 09:48:16 Kevin obbo 2021-02-25 2021-02-25 Jamison Mccallum, 1.2.840.1 [id number] 7498 Univers 00:00:00 00:00:00 Only Nick 51746.1.1 ity of 3.412.2.7 [place] .3.768525 MD Zelaya [facility] 2021-02-25 2021-02-25 Jamison Mccallum, 1.2.840.1 [id number] 6833 Univers 00:00:00 00:00:00 Only Nick 91209.1.1 ity of 3.412.2.7 [place] .3.870660 MD Zelaya [facility] 2021-02-25 2021-02-25 Travel 1.2.840.1 1.2.711.877 8238 [id number] Univers 00:00:00 00:00:00 09926.1.1 350.1.13.41 ity of 3.412.2.7 2.2.7.3.698 [place] .3.340698 084.8 MD Zelaya [facility] 2021-02-18 2021-02-18 Office CARLOS Mccallum, 1.2.840.1 [id number] 6447 Univers 08:30:00 12:33:50 Visit Nick 81874.1.1 ity of 3.412.2.7 [place] .3.905961 MD Zelaya [facility] 2021-02-18 2021-02-18 Outpatient CARLOS ESPARZAADRIANE AIMEE MDA [id number] 08:04:07 08:25:37 Kevin broussard 2021-02-18 2021-02-18 Clinical CARLOS Cabrera 1.2.840.1 [id number] [facility] 08:00:00 08:24:33 Support Viraj D. 75921.1.1 it y of 3.412.2.7 [place] .3.398350 .8 [facility] 2021-02-18 2021-02-18 Travel 1.2.840.1 1.2.151.282 6791 [id number] Univers 00:00:00 00:00:00 56992.1.1 350.1.13.41 ity of 3.412.2.7 2.2.7.3.698 [place] .3.205327 084.8 .8 [facility] 2021-02-15 2021-02-15 Cortney Adams, 1.2.840.1 [id number] 64768 Univers 00:00:00 00:00:00 Miguel Vieyra 72882.1.1 it y of 3.412.2.7 [place] .3.064209 .8 [facility] 2021-02-10 2021-02-10 Cortney Terry, 1.2.840.1 [id number] 43427 Univers 00:00:00 00:00:00 Abdullahi Webb 03197.1.1 it y of 3.412.2.7 [place] .3.171725 .8 [facility] 2021-01-28 2021-01-28 Outpatient EL PARRISH, MDA MDA [id number] MD 15:52:05 23:59:00 JACEK broussard 2021-01-28 2021-01-28 Outpatient EL PARRISH, MDA MDA [id number] MD 14:52:11 15:51:00 JACEK broussard 2021-01-28 2021-01-28 Outpatient EL LE, MDA MDA [id number] MD 14:51:44 14:51:44 VALERIE broussard 2021-01-28 2021-01-28 Outpatient EL PARRISH, MDA MDA [id number] 13:40:16 14:50:00 JACEK broussard 2021-01-24 2021-01-24 Outpatient EL PARRISH, MDA MDA [id number] 09:05:56 10:10:49 JACEK broussard 2021-01-24 2021-01-24 Outpatient [facility] SL[facility] [id number] [facility] 00:00:00 00:00:00 2021-01-21 2021-01-21 Outpatient DEBORAH, MDA MDA [id number] 09:29:25 13:08:21 VIRAJ broussard 2021-01-21 2021-01-21 Outpatient DEBORAH, MDA MDA [id number] 08:20:06 08:20:06 VIRAJ broussard 2021-01-19 2021-01-19 Outpatient DEBORAH, MDA MDA [id number] 12:46:37 23:59:00 VIRAJ broussard 2021-01-19 2021-01-19 Outpatient FARZAD, MDA MDA [id number] 12:50:26 12:50:26 MIGUEL broussard 2020-12-24 2020-12-24 Outpatient FARZAD, MDA MDA [id number] 09:23:26 15:09:37 MIGUEL broussard 2020-12-24 2020-12-24 Outpatient DEBORAH, MDA MDA [id number] 08:47:18 09:34:10 VIRAJ broussard 2020-12-24 2020-12-24 Outpatient FARZAD, MDA MDA [id number] 08:19:49 08:50:29 MIGUEL broussard 2020-12-24 2020-12-24 Outpatient FARZAD, MDA MDA [id number] 08:20:30 08:42:06 MIGUEL broussard 2020-11-30 2020-11-30 Outpatient PARRISH, MDA MDA [id number] 07:41:33 23:59:00 JACEK broussard 2020-11-26 2020-11-26 Outpatient DEBORAH, MDA MDA [id number] 10:04:21 14:59:16 VIRAJ broussard 2020-11-26 2020-11-26 Outpatient [facility], MDA MDA [id number] 09:54:21 10:00:10 NICK broussard 2020-11-26 2020-11-26 Outpatient CARLOS CABRERA, MDA MDA [id number] 08:20:44 09:45:53 VIRAJ broussard 2020-11-26 2020-11-26 Outpatient CARLOS CABRERA, MDA MDA [id number] 08:41:00 09:22:56 VIRAJ broussard 2020-11-26 2020-11-26 Outpatient CARLOS CABRERA, MDA MDA [id number] 09:21:39 09:21:39 VIRAJ broussard 2020-11-08 2020-11-08 Outpatient CARLOS CABRERA, MDA MDA [id number] 11:18:51 13:22:46 VIRAJ broussard 2020-10-29 2020-10-29 Outpatient CARLOS PARRISH, MDA MDA [id number] 16:14:57 23:59:00 JACEK broussard 2020-10-29 2020-10-29 Outpatient CARLOS PARRISH, MDA MDA [id number] 16:00:00 16:13:00 JACEK broussard 2020-10-29 2020-10-29 Outpatient CARLOS MCCALLUM, MDA MDA [id number] 10:59:42 15:10:06 NICK broussard 2020-10-29 2020-10-29 Outpatient CARLOS CABRERA, MDA MDA [id number] 10:07:43 10:07:43 VIRAJ broussard 2020-10-29 2020-10-29 Outpatient CARLOS MCCALLUM, MDA MDA [id number] 09:14:51 10:07:05 NICK broussard 2020-10-29 2020-10-29 Outpatient CARLOS CABRERA, MDA MDA [id number] 00:00:00 00:00:00 VIRAJ broussard 2020-10-27 2020-10-27 Outpatient CARLOS MCCALLUM, MDA MDA [id number] MD 16:13:39 23:59:00 NICK Brown o bobo 2020-10-27 2020-10-27 Outpatient CARLOS PARRISH, MDA MDA [id number] 13:02:09 13:02:09 JACEK broussard 2020-10-25 2020-10-25 Outpatient EL FRANCOIS, MDA MDA [id number] 11:40:40 16:03:29 JACEK broussard 2020-10-18 2020-10-18 Outpatient CARLOS CABRERA, MDA MDA [id number] 13:05:00 23:59:00 VIRAJ broussard 2020-10-11 2020-10-11 Outpatient EL FRANCOIS, MDA MDA [id number] MD 08:58:24 08:58:24 JACEK broussard 2020-10-01 2020-10-01 Outpatient CARLOS MCCALLUM, MDA MDA [id number] 09:12:07 13:48:15 NICK broussard 2020-10-01 2020-10-01 Outpatient EL DEBORAH, MDA MDA [id number] 08:03:15 08:03:15 VIRAJ broussard 2020-09-30 2020-09-30 Outpatient GULSHAN, MDA Surgical [id number] 06:48:00 11:50:00 JARETT broussard 2020-09-30 2020-09-30 Outpatient EL MDA MDA [id number] 10:30:43 10:30:43 Kevin broussard 2020-09-30 2020-09-30 Outpatient EL MDA MDA [id number] 08:50:17 08:50:17 Kevin broussard 2020-09-30 2020-09-30 Outpatient GULSHAN, MDA MDA [id number] MD 07:42:26 07:42:26 JARETT broussard 2020-09-30 2020-09-30 Outpatient KALIN, MDA MDA [id number] 07:01:16 07:01:16 GUERITA broussard 2020-09-30 2020-09-30 Outpatient ALESSIO, MDA MDA [id number] 06:09:04 06:47:00 NICK broussard 2020-09-30 2020-09-30 Outpatient EL KALIN, MDA MDA [id number] 06:04:30 06:08:00 GUERITA broussard 2020-09-28 2020-09-28 Outpatient EL KALIN, MDA MDA [id number] 08:06:09 08:06:09 GUERITA broussard 2020-09-27 2020-09-27 Outpatient ALESSIO, MDA MDA [id number] 09:46:58 23:59:00 NICK broussard 2020-09-27 2020-09-27 [facility] [id number] 12:09:59 14:13:50 GUERITA broussard 2020-09-27 2020-09-27 Outpatient [facility], MDA MDA [id number] 14:03:54 14:03:54 JACEK broussard 2020-09-27 2020-09-27 Outpatient [facility], MDA MDA [id number] 11:35:09 11:35:09 GUERITA broussard 2020-09-27 2020-09-27 Outpatient [facility], MDA MDA [id number] 09:21:58 09:32:11 GUERITA broussard 2020-09-27 2020-09-27 Outpatient [facility], MDA MDA [id number] 07:44:10 07:44:10 GUERITA broussard 2020-09-03 2020-09-03 Outpatient CABRERA, MDA MDA [id number] 10:21:20 15:43:11 VIRAJ broussard 2020-09-03 2020-09-03 Outpatient CABRERA, MDA MDA [id number] 09:14:54 09:14:54 VIRAJ broussard 2020-09-03 2020-09-03 Outpatient [facility], MDA MDA [id number] 08:46:38 09:01:31 VIRAJ broussard 2020-08-06 2020-08-06 [facility] [id number] 08:31:12 17:46:16 VIRAJ broussard 2020-08-06 2020-08-06 Outpatient CABRERA, MDA MDA [id number] 08:06:29 08:31:14 VIRAJ broussard 2020-08-05 2020-08-05 Outpatient ALESSIO, MDA MDA [id number] MD 10:16:11 10:16:11 NICK Brown o bobo 2020-07-30 2020-07-30 Outpatient CARLOS MCCALLUM MDA [facility] [id number] 12:34:23 12:57:45 NICK broussard 2020-07-30 2020-07-30 Outpatient CARLOS CABRERA MDA MDA [id number] 09:14:43 12:32:08 VIRAJ broussard 2020-07-30 2020-07-30 Outpatient CARLOS CABRERA MDA MDA [id number] 11:09:50 11:09:50 VIRAJ broussard 2020-07-30 2020-07-30 Outpatient CARLOS CABRERA MDA MDA [id number] 09:18:53 09:18:53 VIRAJ broussard 2020-07-27 2020-07-27 Outpatient CARLOS CABRERA MDA MDA [id number] 12:53:52 12:53:52 VIRAJ broussard Results Test Description Test Time Test Comments Results Result Comments Source POC Creatinine 2022-07-27 16:54:49 Test Item Value Reference Range Interpretation Comme nts POC Crea (test code = 0.7 mg/dL 0.6-1.3 Medica tions, especially 90718-3) hydroxyurea or supplements, such as ascorbate, c an interfere with test results ca using a falsely and significant ly higher result than expected. If a problem is suspected with a patient's result, a sampl e should be sent to the [facility] for confirmatory te sting. Method description: Th e i-STAT is an analyzer used f or in vitro quantification of various analytes in [facility] blood. The device uses a s new disposable cartridge which contains microfabricated sensors, a calibration [employer], fluidics system, and a w aste chamber. Each test cartr idge contains chemically sens itive biosensors on a silicon Yolto ip that are configured to p erform specific tests. The micr ofabricated sensors measure analyte concentration b y an electrochemical assay. POC EGFR (test code = 84 See_Comment The e[place] FRcr [place] [address]) the 2020 CKD-EP I creatinine equation using creatinine, patient's age, and sex for adults 18 years of age and older. Other fa ctors, especially muscle mass, ma y affect accuracy and need to be considered.Acco rding to the Kidney Disease: Improving Global Outcomes (KDIGO ) CKD Work Group 2012 Clinical P vitaliy Guideline, shaper machine hand velvet kidney disease (CKD) i s defined as the abnormalities o f kidney structure or fu nction, present for more than 3 months, with implications fo r health. CKD should be class ified by cause, GFR category, a nd albuminuria category. KDIGO guidelines provide the fol lowing GFR categoriesStage Description GFR mL/min/1.73 m2G 1* Normal or high >= 90G2* Mildly decreased 60-89G3a Mildly to moderately decreased 45-59 G3b Moderately to severely decrea sed 30-44G4 Severely decrea sed 15-29G5 Kidney failure <15*In the absence of evid ence of kidney damage, neither G1 nor G2 fulfill criteri a for CKD. [Automated mess age] The system which generated this result transmitted ref erence range: >=60 mL/min/1.7 3 sq. m. The reference range was not used to interpret this result as normal/abnormal . POC Clean Dev (test code = Yes 6672) Performing Lab (test code = DI [facility] [address]) [facility], [address] [place] [address]; Point of Care Lab Dir rj: Cindy Rose MD [facility] CenterRAD, SHOULDER, COMPLETE (MIN 2 VIEWS), [id number] 14:37:00Reason for Exam:->[id number] [facility] : 1935 Sex: FFINAL REPORT Exam: RAD, SHOULDER, COMPLETE (MIN 2 VIEWS), RIGHTDate: 07/21/2022 2:35 PM Indication:[id number]: 01/24/2021 DISCUSSION/IMPRESSION: AP internal/external and Y views of theright shoulder were obtained. Diffuse osteopenia. No acute osseous injury is noted. Degenerative changes noted in the glenohumeral and acromioclavicular joints. Coracoclavicular and acromioclavicular distances are within normal limits. Right chest port in place. Soft tissues are within normal limits. Signed: Tlyor Cao MDReport Verified Date/Time: 07/21/2022 14:37:39 Reading Location: [facility] Radiology Reading Room POC Creatinine 2022-04-21 00:14:57 Test Item Value Reference Range Interpretation Comments POC Crea (test 0.8 mg/dL 0.6-1.3 Medications, code = 03926-8) especially h ydroxyurea or supplements, such as [...] of various anal ytes in whole blood. e device uses a s new disposable cart ridge which contains microfabricated sensors, a estelita bration solution, fluid ics system, and a w aste chamber. Each t est cartridge conta ins chemically sens itive biosensors on a silicon chip at are configured to p erform specific tests. The microfabricated sensors measure analyte concent ration by an electroch emical assay. POC eGFR-AA (test 77 See_Comment Normal eGF R >= 60 code = 85479-4) mL/min/1.73 m2 The eGFR is calcula sammie using the CKD-E PI equation. The e GFR declines with a ge. eGFR <60 mL/min /1.73 m2 is considere d as "decreased" Thi s equation should only be used for pat ients 18 and older. According to National Kidney Foundation's Ki dney Disease Outcome Quality Initiat vandana (KDOQI) [...] Normal eG FR >= 60 code = 53835-6) mL/min/1.73 m2 The eGFR is calcula sammie using the CKD-E PI equation. The e GFR declines with a ge. eGFR <60 mL/min /1.73 m2 is considere d as "decreased" Thi s equation should only be used for pat ients 18 and older. According to th e National Kidney Foundation's Ki dney Disease Outcome Quality Initiat vandana (KDOQI) [...] Yes (test code = 6672) Performing Lab [facility] Main Main [employer] [facility] (test code = [facility] [place] [address]) Clinical Lab, [address] [facility], [place], [place] [address]; Vacation Planner: Kylee Padilla MD [facility]oFraction[facility] [id number] 00:06:53 Test Item Value Reference Range Interpretation [...] interpret th is result as normal/abnormal . [facility]oFractionated [id number] 00:06:53Bili Total<0.3<=1.2 mg/dLUT [facility]Un[facility]Total [id number] 00:06:51 Test Item Value Reference Range Interpretation Comments Total Protein (test code = 2885-2) 6.7 g/dL 6.4-8.3 [facility]oTotal [id number] 00:06:51 Test Item Value Reference Range Interpretation Comments Total Protein (test code = 2885-2) 6.7 g/dL 6.4-8.3 [facility]oMagnesium2022-09-02 00:06:50 Test Item Value Reference Range Interpretation Comments Magnesium (test code = 64978-4) 1.6 mg/dL 1.6-2.6 [facility]esium2022-09-02 00:06:50 Test Item Value Reference Range Interpretation Comments Magnesium (test code = 03496-8) 1.6 mg/dL 1.6-2.6 [facility]oAlkaline [id number] 00:06:49 Test Item Value Reference Range Interpretation Comments Alk Phos (test code = 6768-6) 122 U/L 35-104 H Lab Interpretation (test code = Abnormal 03832-1) [facility]oAlkaline [id number] 00:06:49 Test Item Value Reference Range Interpretation Comments Alk Phos (test code = 6768-6) 122 U/L 35-104 H Lab Interpretation (test code = Abnormal 54422-5) [facility]aredoAlbumin [id number] 00:06:44 Test Item Value Reference Range Interpretation Comments Albumin Lvl (test code 4.1 See_Comment [Aut omated message] The = 9333) system which ge nerated this result tra nsmitted reference range : 3.5 - 5.2 gm/dL. The refe rence range was not used to interpret this result as normal/abnormal . [facility]oAlbumin [id number] 00:06:44 Test Item Value Reference Range Interpretation Comments Albumin Lvl (test code 4.1 See_Comment [Aut omated message] The = 3601) system which ge nerated this result tra nsmitted reference range : 3.5 - 5.2 gm/dL. The refe rence range was not used to interpret this result as normal/abnormal . [facility] [id number] 22:54:57 Test Item Value Reference Range Interpretation Comments POC Crea (test 0.8 mg/dL 0.6-1.3 Medications, code = 98501-8) especially h ydroxyurea or supplements, such as ascorbate, c an interfere with test results causing a falsely and significantly h igher result than exp ected. If a problem is suspected with a patient's resul t, a sample should b e sent to the [facility] for confirmatory te sting. Method descript ion: [...] sens itive biosensors on a silicon chip th at are configured to p erform specific tests. The microfabricated sensors measure analyte concent ration by an electroch emical assay. POC eGFR-AA (test 77 See_Comment Normal eGF R >= 60 code = 44644-4) mL/min/1.73 m2 The eGFR is calcula sammie [...] Normal eG FR >= 60 code = 06257-1) mL/min/1.73 m2 The eGFR is calcula sammie [...] Yes (test code = 6672) Performing Lab [facility] Main [facility] (test code = [facility] [place] [address]) Clinical Lab, [address], [place], [place] [address]; Vacation Planner: Kylee Padilla MD [facility] ZamoraRAD, SHOULDER, COMPLETE (MIN 2 VIEWS), [id number] 11:08:00Reason for Exam:->M54.9,G89.29 [facility] 1935 Sex: FFINAL REPORT Right shoulder History provided: M 54.9 No fracture or dislocation. Glenohumeral joint space is narrowed with minimal spurring, consistent with degenerative change. Signed: Constantin Jacinto MDReport Verified Date/Time: 01/24/2021 11:08:40 Reading Location: [facility] Diagnostic ImagingReading Room - [facility] 1.310.12
[2022-10-16 13:12] LABS: Absolute Lymphocytes (CBC) 0.6 K/uL (0.7-4.9); Hematocrit 25.7 % (36.0-45.0); MCV 79.1 fL (80-100); MPV 8.4 fL (7.6-11.3); RBC Red Blood Cell Count 3.24 M/uL (3.86-4.86)
[2022-10-16 13:55] LABS: Potassium 3.7 mmol/L (3.5-5.1)
[2022-10-16 14:00] LABS: Anisocytosis 1+; Blood Morphology Comment NOTED (NOT SEEN); Platelet Estimate ADEQ; White Blood Cell Scan OK (OK)
--- NOTE | 2022-10-16 15:18 | RAD REPORT ---
EXAM DESCRIPTION: CT - Chest For Pe Angio - 10/16/2022 2:46 pm CLINICAL HISTORY: Right-sided chest pain COMPARISON: None. TECHNIQUE: Dynamically enhanced axial 3 mm thick images of the chest were obtained during administra tion of 75 mL Isovue 370 IV contrast. Coronal and oblique reconstruction images were generated and re viewed. Exam utilizes a protocol for optimal evaluation of pulmonary arterial tree. All CT scans are performed using dose optimization technique as appropriate and may include automated exposure control or mA/KV adjustment according to patient size. FINDINGS: Right chest wall port in place, with catheter tip at the superior cavoatrial junction. Pulmonary arteries show no evidence of emboli or other suspicious finding. Prominent caliber of the r ight more than left pulmonary arteries. No acute or significant aorta findings. No mass or infiltrate in the lung parenchyma. Segmental right middle lobe, and subsegmental left lowe r lobe atelectasis. No pleural thickening or pleural effusion. No pneumothorax. Large hiatal hernia containing most of the stomach. No abnormal mediastinal or hilar masses or lympha denopathy seen. No chest wall mass or abnormal axilliary lymphadenopathy. No suspicious osseous lesions. Chronic appearing wedge compression deformities of T11 and T12 with s equelae of vertebral augmentation. IMPRESSION: No evidence of acute central pulmonary embolus. Prominent caliber of the right more than left pulmonary arteries. Please correlate clinically for rakel dence of pulmonary hypertension. Negative CT scan of the chest for other significant findings. Incidental note made of a large hiatal hernia, and atelectatic changes in the right middle lobe and left lower lobe.
[2022-10-16] MEDS ORDERED: KETOROLAC 30 MG/ML INJ ONE (15:39)
--- NOTE | 2022-10-16 16:07 | ER ---
Nurse's Notes [facility] Name: Neris Lloyd Age: 87 yrs Sex: Female : 1935 Arrival Date: 10/16/2022 Time: 12:06 Bed 23 Private MD: Diagnosis: Breast pain;Right sided chest pain Presentation: 10/16 12:34 Chief complaint: Patient states: Right breast pain since last night. Pelvic pain, right ld1 groin pain, right left pain X 2-3 days. Coronavirus screen: At this time, the client does not indicate any symptoms associated with coronavirus-19. Ebola Screen: No symptoms or risks identified at this time. Initial Sepsis Screen: Does the patient meet any 2 criteria? No. Patient's initial sepsis screen is negative. Does the patient have a suspected source of infection? No. Patient's initial sepsis screen is negative. Risk Assessment: Do you want to hurt yourself or someone else? Patient reports no desire to harm self or others. Onset of symptoms was October 16, 2022 at 12:35. 12:34 Method Of Arrival: Wheelchair ld1 12:34 Acuity: JORGE 3 ld1 Triage Assessment: 12:35 General: Appears in no apparent distress. uncomfortable, Behavior is calm, cooperative, ld1 appropriate for age. Pain: Complains of pain in right breast Pain does not radiate. Pain currently is 10 out of 10 on a pain scale. Quality of pain is described as sharp, shooting, throbbing. EENT: No signs and/or symptoms were reported regarding the EENT system. Neuro: Level of Consciousness is awake, alert, obeys commands, Oriented to person, place, time, situation. Cardiovascular: Capillary refill < 3 seconds Patient's skin is warm and dry. Rhythm is sinus rhythm. Respiratory: Airway is patent Respiratory effort is even, unlabored. GI: Abdomen is flat, non-distended. : No signs and/or symptoms were reported regarding the genitourinary system. Derm: No signs and/or symptoms reported regarding the dermatologic system. Musculoskeletal: No signs and/or symptoms reported regarding the musculoskeletal system. Historical: - Allergies: 12:35 Bactrim; ld1 12:35 Sulfa (Sulfonamide Antibiotics); ld1 - Home Meds: 14:09 esomeprazole daily [Active]; pregabalin 50 mg Oral cap [Active]; montelukast 10 mg oral mb9 tab [Active]; Xarelto 20 mg oral tab 1 tab once daily [Active]; naltrexone oral [Active]; clonazepam 1 mg Oral tab 1 tab 2 times per day [Active]; - PMHx: 12:35 Anxiety; Atrial Fib; Hypertension; Back pain; ovarian cancer; UTI; ld1 - PSHx: 12:35 Colostomy; Port a cath; hysterectomy; ld1 - Immunization history:: Adult Immunizations up to date, Client reports receiving the 2nd dose of the Covid vaccine. - Social history:: Smoking status: Patient denies any tobacco usage or history of. Patient/guardian denies using alcohol. Screenin:32 [facility] ED Fall Risk Assessment (Adult) History of falling in the last 3 months, mb9 including since admission No falls in past 3 months (0 pts) Confusion or Disorientation No (0 pts) Intoxicated or Sedated No (0 pts) Impaired Gait Mobility Assist Device Used Yes (1 pt) Altered Elimination No (0 pt) Score/Fall Risk Level 0 - 2 = Low Risk Oriented to surroundings, Maintained a safe environment, Educated pt \T\ family on fall prevention, incl call for assistance when getting out of bed. Abuse screen: Denies threats or abuse. Nutritional screening: No deficits noted. Tuberculosis screening: No symptoms or risk factors identified. Assessment: 13:01 General: Appears ill. Pain: Complains of pain in right breast Pain radiates to chest mb9 Quality of pain is described as stabbing. Neuro: Level of Consciousness is awake, alert, obeys commands, Oriented to person, place, time, situation, Appropriate for age. Cardiovascular: Heart tones S1 S2 present. Respiratory: Airway is patent Respiratory effort is even, unlabored, Respiratory pattern is tachypnea. GI: is clean and dry. Ostomy appliance is intact. Derm: Skin is fragile, is thin, Skin is dry, Skin is pale, Skin temperature is warm. 14:40 Reassessment: pt taken to CT via stretcher. mb9 15:28 Reassessment: No changes from previously documented assessment. Patient and/or family mb9 updated on plan of care and expected duration. Pain level reassessed. Patient is alert, oriented x 3, equal unlabored respirations, skin warm/dry/pink. 16:44 Reassessment: No changes from previously documented assessment. Patient and/or family mb9 updated on plan of care and expected duration. Pain level reassessed. Patient is alert, oriented x 3, equal unlabored respirations, skin warm/dry/pink. Patient states feeling better. Patient states symptoms have improved. Vital Signs: 12:34 BP 128 / 82; Pulse 95; Resp 24; Temp 98.0(O); Pulse Ox 95% on R/A; Weight 48.08 kg; ld1 Height 5 ft. 0 in. (152.40 cm); Pain 10/10; 13:31 BP 122 / 71; Pulse 81; Resp 28; Pulse Ox 95% on R/A; mb9 15:28 BP 124 / 75; Pulse 82; Resp 32; Pulse Ox 99% on R/A; mb9 16:44 BP 123 / 65; Pulse 88; Resp 26; Pulse Ox 100% ; mb9 12:34 Body Mass Index 20.70 (48.08 kg, 152.40 cm) ld1 ED Course: 12:06 Patient arrived in ED. am2 12:12 Yohannes Sullivan DO is Attending Physician. ms3 12:31 Melody Kc, RUBY is Primary Nurse. mb9 12:32 Arm band placed on. mb9 12:32 Placed in gown. Bed in low position. Call light in reach. Side rails up X 1. Client mb9 placed on continuous cardiac and pulse oximetry monitoring. NIBP monitoring applied. vehicle monitor technician on. 12:35 Triage completed. ld1 12:40 EKG done, by ED staff, reviewed by Yohannes Sullivan DO. mb9 12:40 No provider procedures requiring assistance completed. Accessed Port-a-Cath. using 20G mb9 Nexia IV catheter ,sterile technique, per hospital protocol. Clean \T\ dry. Dressing intact. Good blood return. Flushes easily. 14:48 CT Chest For PE Angio In Process Unspecified. EDMS 16:45 IV discontinued. mb9 Administered Medications: 15:39 Drug: Ketorolac 10 mg 10 mg Route: IVP; Site: Port-a-cath; mb9 16:33 Follow up: Response: No adverse reaction mb9 16:44 Drug: Hep-Lock 10 units Route: IVP; Site: Port-a-cath; mb9 16:44 Follow up: Response: No adverse reaction mb9 Medication: 12:32 VIS not applicable for this client. mb9 Outcome: 16:06 Discharge ordered by . ms3 16:44 Discharged to home via wheelchair. mb9 16:44 Condition: stable 16:44 Discharge instructions given to patient, family, Instructed on discharge instructions, follow up and referral plans. Demonstrated understanding of instructions, follow-up care, medications, Prescriptions given X 1. 16:45 Patient left the ED. mb9 Signatures: Dispatcher [employer] EDMS Mary Her am2 Yohannes Sullivan DO DO ms3 Cee Pereira, RN RN ld1 Melody Kc RN RN mb9
--- NOTE | 2022-10-16 16:07 | EDPHYS ---
Physician Documentation [facility] Name: Neris Lloyd Age: 87 yrs Sex: Female : 1935 Arrival Date: 10/16/2022 Time: 12:06 Bed 23 Private MD: ED Physician Yohannes Sullivan HPI: 10/16 13:48 This 87 yrs old Female presents to ER via Wheelchair with complaints of Breast Problem ms3 - pain in right side. 13:48 87-year-old female with past medical history of anxiety, atrial fibrillation, ms3 hypertension, back pain, ovarian cancer, UTI presents for right breast pain that began yesterday. Patient states it hurts to breathe. Patient rates her pain a 10/10. Patient denies fevers, chills. Patient endorses cough. Patient notes that she is currently on Xarelto.. Historical: - Allergies: 12:35 Bactrim; ld1 12:35 Sulfa (Sulfonamide Antibiotics); ld1 - Home Meds: 14:09 esomeprazole daily [Active]; pregabalin 50 mg Oral cap [Active]; montelukast 10 mg oral mb9 tab [Active]; Xarelto 20 mg oral tab 1 tab once daily [Active]; naltrexone oral [Active]; clonazepam 1 mg Oral tab 1 tab 2 times per day [Active]; - PMHx: 12:35 Anxiety; Atrial Fib; Hypertension; Back pain; ovarian cancer; UTI; ld1 - PSHx: 12:35 Colostomy; Port a cath; hysterectomy; ld1 - Immunization history:: Adult Immunizations up to date, Client reports receiving the 2nd dose of the Covid vaccine. - Social history:: Smoking status: Patient denies any tobacco usage or history of. Patient/guardian denies using alcohol. ROS: 13:48 Constitutional: Negative for fever, and chills. Eyes: Negative for injury, pain, ms3 redness, and discharge, Neck: Negative for injury, pain, and swelling, Cardiovascular: Negative for chest pain, and palpitations. Respiratory: Negative for shortness of breath, cough, wheezing, and pleuritic chest pain, Abdomen/GI: Negative for abdominal pain, nausea, vomiting, diarrhea, and constipation, Skin: Negative for injury, rash, and discoloration. 13:48 Cardiovascular: Positive for chest pain. 13:48 All other systems are negative. Exam: 12:41 ECG was reviewed by the Attending Physician. ms3 13:48 Constitutional: This is a well developed, well nourished patient who is awake, alert, ms3 and in no acute distress. Head/Face: Normocephalic, atraumatic. Neck: Trachea midline, no cervical lymphadenopathy. Supple, full range of motion without nuchal rigidity, or vertebral point tenderness. No Meningismus. Chest/axilla: Normal chest wall appearance and motion. Nontender with no deformity. Cardiovascular: Regular rate and rhythm with a normal S1 and S2. No gallops, murmurs, or rubs. Normal PMI, no JVD. No pulse deficits. Respiratory: Lungs have equal breath sounds bilaterally, clear to auscultation and percussion. No rales, rhonchi or wheezes noted. No increased work of breathing, no retractions or nasal flaring. Skin: Warm, dry with normal turgor. Normal color with no rashes, no lesions, and no evidence of cellulitis. MS/ Extremity: Pulses equal, no cyanosis. Neurovascular intact. Full, normal range of motion. 13:48 Chest/axilla: Breasts: nipple discharge, is not appreciated, tenderness, that is mild of the right breast. Vital Signs: 12:34 BP 128 / 82; Pulse 95; Resp 24; Temp 98.0(O); Pulse Ox 95% on R/A; Weight 48.08 kg; ld1 Height 5 ft. 0 in. (152.40 cm); Pain 10/10; 13:31 BP 122 / 71; Pulse 81; Resp 28; Pulse Ox 95% on R/A; mb9 15:28 BP 124 / 75; Pulse 82; Resp 32; Pulse Ox 99% on R/A; mb9 16:44 BP 123 / 65; Pulse 88; Resp 26; Pulse Ox 100% ; mb9 12:34 Body Mass Index 20.70 (48.08 kg, 152.40 cm) ld1 MDM: 12:31 Patient medically screened. ms3 13:48 Differential diagnosis: abnormal EKG, acute myocardial infarction, MSK pain vs breast ms3 pain. 16:08 Data reviewed: vital signs, nurses notes, lab test result(s), EKG, radiologic studies, ms3 CT scan, plain films, and as a result, I will discharge patient. Consideration of Admission/Observation Escalation of care including admission/observation considered. I considered the following discharge prescriptions or medication management in the emergency department Medications were administered in the Emergency Department. See MAR. Independent interpretation of the following test(s) in the Emergency Department athletic monitor: rate is 83 beats/min, Rhythm is normal sinus rhythm, regular, with no ectopy, Interpretation: normal rate, normal rhythm. Counseling: I had a detailed discussion with the patient and/or guardian regarding: the historical points, exam findings, and any diagnostic results supporting the discharge/admit diagnosis, lab results, radiology results, the need for outpatient follow up, to return to the emergency department if symptoms worsen or persist or if there are any questions or concerns that arise at home. ED course: Discussed labs, imaging with patient and her daughter. They understand and agree with plan. All questions were answered. Return precautions discussed include shortness of breath, inability to tolerate p.o., lightheadedness, or any other concerns. On reevaluation patient's pain improved, patient is alert and oriented x4, no apparent distress, nontoxic, speaking full sentences.. 10/16 12:31 Order name: Basic Metabolic Panel; Complete Time: 14:55 ms3 10/16 12:31 Order name: CBC with Diff; Complete Time: 14:02 ms3 10/16 12:31 Order name: CT Chest For PE Angio; Complete Time: 15:28 ms3 10/16 14:00 Order name: CBC Smear Scan; Complete Time: 14:02 EDMS 10/16 12:31 Order name: EKG; Complete Time: 12:32 ms3 10/16 12:31 Order name: Cardiac monitoring; Complete Time: 12:32 ms3 10/16 12:31 Order name: EKG - Nurse/Tech; Complete Time: 13:00 ms3 10/16 12:31 Order name: IV Saline Lock; Complete Time: 13:00 ms3 10/16 12:31 Order name: Labs collected and sent; Complete Time: 13:00 ms3 10/16 12:31 Order name: O2 Per Protocol; Complete Time: 12:33 ms3 10/16 12:31 Order name: O2 Sat Monitoring; Complete Time: 12:33 ms3 EC:41 Rate is 84 beats/min. Rhythm is regular. QRS [place] is Normal. ID interval is normal. QRS ms3 interval is normal. Clinical impression: NSR w/ Non-specific ST/T Changes. Interpreted by me. Reviewed by me. Administered Medications: 15:39 Drug: Ketorolac 10 mg 10 mg Route: IVP; Site: Port-a-cath; mb9 16:33 Follow up: Response: No adverse reaction mb9 16:44 Drug: Hep-Lock 10 units Route: IVP; Site: Port-a-cath; mb9 16:44 Follow up: Response: No adverse reaction mb9 Disposition Summary: 10/16/22 16:06 Discharge Ordered Location: Home ms3 Condition: Stable ms3 Diagnosis - Breast pain ms3 - Right sided chest pain ms3 Followup: ms3 - With: Private Physician - When: 2 - 3 days - Reason: Recheck today's complaints Discharge Instructions: - Discharge Summary Sheet ms3 - Nonspecific Chest Pain, Adult ms3 Forms: - Medication Reconciliation Form ms3 - Thank You Letter ms3 - Antibiotic Education ms3 - Prescription Opioid Use ms3 Prescriptions: - ibuprofen 400 mg Oral tablet - take 1 tablet by ORAL route every 4 hours as needed for pain; 20 tablet; ms3 Refills: 0, Product Selection Permitted Signatures: Dispatcher [employer] Yohannes Oniel DO DO ms3 Cee Pereira, RN RN ld1 Melody Kc RN RN mb9
[2022-10-16] MEDS ORDERED: HEPARIN 500 UNIT/5 ML SYR IV ONE (16:38)
[2022-10-16 17:36] VITALS: BP 123/65; O2SAT 100
[2022-10-16 18:05] VITALS: TEMP 98
--- NOTE | 2022-10-16 18:38 | EKG ---
Test Date: 2022-10-16 Test Time: 12:41:23 Director Of Public Works: MB MEASUREMENT RESULTS: Intervals: Rate: 84 CT: 174 QRSD: 76 QT: 374 QTc: 441 [place]: P: 54 CT: 174 QRS: 61 T: 72 INTERPRETIVE STATEMENTS: Sinus rhythm with premature supraventricular complexes Anterior infarct, age undetermined Abnormal ECG Compared to ECG 12/25/2017 16:30:18 Atrial premature complex(es) now present Myocardial infarct finding now present Sinus bradycardia no longer present Electronically Signed On 10-16-22 18:37:02 MERCHANDISING REPRESENTATIVE by Tra Davis
== END 2022-10-16 16:45 | disposition home or self-care (01) ==
LOC: ER 12:05
DX: N64.4 Mastodynia (principal); R07.89 Other chest pain; I10 Essential (primary) hypertension; I48.91 Unspecified atrial fibrillation; Z88.1 Allergy status to other antibiotic agents; Z88.2 Allergy status to sulfonamides
CPT/HCPCS: 93005; 85025; 80048; 36415; 71275; Q9967; J1642; 96374; 96375; 99285